=== PATIENT | female | born 1945 | race Caucasian/White ===

== ENCOUNTER 2018-06-25 05:10 | Inpatient (IN) ==
--- NOTE | 2018-06-25 05:59 | ED ---
HPI General Chief Complaint: Fall Stated Complaint: Fall Time Seen by Provider: 06/25/18 05:47 Source: patient Mode of arrival: EMS Limitations: no limitations History of Present Illness HPI Narrative: 72-year-old female came to the emergency room with history of fall from her water bed 1 week back and bumping her head. Patient says she has a bump on her head that still painful. She has also been experiencing generalized weakness, abdominal distention and some shortness of breath. Patient knows that she has multiple medical problems but does not know exactly what. She does not know the medications that she takes although there is a long list. She did not bring her list with her either. She was tachycardic upon arrival. She is answering questions appropriately but mostly not helpful in terms of past medical history. Related Data Home Medications Medication Instructions Recorded Confirmed Multi Vitamin PO DAILY 06/25/18 allopurinol PO DAILY 06/25/18 glipizide PO DAILY 06/25/18 levothyroxine 300 mcg PO DAILY 06/25/18 06/25/18 Allergies Allergy/AdvReac Type Severity Reaction Status Date / Time No Known Allergies Allergy Verified 06/25/18 05:25 Review of Systems ROS: all other systems reviewed are negative [facility] [place] Medical History Medical History Asthma (Acute) Diabetes (Acute) Gout (Acute) Hypertension (Acute) Leukemia (Acute) Surgical History Surgical History H/O foot surgery (Acute) H/O thyroidectomy (Acute) Family History Family History Mother Breast cancer Stroke Father Motor vehicle accident Sister Spina bifida Other No pertinent family history Social History Social History Substance History: No History of Abuse Second Hand Smoke Exposure: No Smoking Status: Never smoker How Often Do You Have a Drink Containing Alcohol: Monthly or less Recent Travel in [facility] within the Last 8 Weeks: No Recent Out of Country Travel within the Last 8 Weeks: No Immunization History Tetanus Immunization: Unsure Exam Narrative Exam Narrative: GENERAL: Awake, alert, moderate distress, obese SKIN: Focused skin assessment warm/dry. Pale HEAD: Atraumatic. Normocephalic. EYES: Pupils equal and round. No scleral icterus. No injection or drainage. ENT: No nasal bleeding or discharge. Mucous membranes pink and moist. NECK: Trachea midline. No JVD. CARDIOVASCULAR: Regular rate and rhythm. No murmur appreciated. RESPIRATORY: No accessory muscle use. Clear to auscultation. Breath sounds equal bilaterally. GASTROINTESTINAL: Abdomen soft, non-tender, distended. Hepatic and splenic margins not palpable. MUSCULOSKELETAL: No obvious deformities. No clubbing. No cyanosis. Bilateral pedal edema NEUROLOGICAL: Awake and alert. No obvious cranial nerve deficits. Motor grossly within normal limits. Normal speech. PSYCHIATRIC: Appropriate mood and affect; insight and judgment normal. Course Initial Documented Vital Signs Temperature 98.7 F 06/25/18 05:16 Pulse Rate 103 H 06/25/18 05:16 Respiratory Rate 20 06/25/18 05:16 Blood Pressure 133/82 06/25/18 05:16 Pulse Oximetry 96 06/25/18 05:16 Last Documented Vital Signs Temperature 97.3 F L 07/01/18 08:00 Pulse Rate 65 07/01/18 08:00 Respiratory Rate 18 07/01/18 08:00 Blood Pressure 150/69 H 07/01/18 08:00 Pulse Oximetry 94 L 07/01/18 08:00 Sign Out Sign Out Data: Patient Sign Out occurred on 06/25/18 at 07:28. Patient's care was discussed, and care was transferred from Joel Ramirez to [facility]. Sign Out Comment: Labs, CT head, admission Last updated by Joel Ramirez MD at 06/25/18 07:15 Post-Handoff Eval: CBC shows a 20,000 leukocytosis however with a shift on the lymphocytosis of 61 % no evidence of any anemia or any abnormal platelet count Coagulation profile is within normal limits ABG on room air shows hypoxemia with a PaO2 of 60 PCO2 37 pH 7.44 Electrolytes are within normal limits with the exception of hyperglycemia 184, also there is renal insufficiency with a GFR of 17 creatinine of 2.75 and a BUN of 43.... Please note that patient has had chronic renal insufficiency going back to 2011 when her average creatinine ranged between 1.75-1.89 First set of cardiac enzymes negative Chest x-ray read by radiologist as the right midlung density along with pleural effusion and underlying airspace disease my interpretation of these findings are most likely due to infectious disease such as pneumonia, the patient will be given Rocephin and azithromycin. Head CT read by radiologist as no evidence of acute infarct hemorrhage mass or edema Medical Decision Making MDM Narrative Medical decision making narrative: 7:10 AM awaiting for blood test results and CT scan of the brain. I have ordered 40 mg of Lasix. I have a very high clinical suspicion of congestive heart failure. Case has been signed over to the oncoming ER physician. In my opinion patient will need to be admitted. Medical Screen Exam Complete: Yes Emergency Medical Condition: Yes Lab Data Result diagrams: 07/01/18 04:43 07/01/18 04:43 Lab Results 06/25/18 06/25/18 06/25/18 Range/Units 07:15 07:15 07:15 WBC 20.7 H (4.0-11.0) th/mm3 RBC 3.81 L (4.00-5.30) mil/mm3 Hgb 11.6 (11.6-15.3) gm/dL Hct 35.1 (35.0-46.0) % MCV 92.3 (80.0-100.0) fL MCH 30.6 (27.0-34.0) pg MCHC 33.1 (32.0-36.0) % RDW 15.7 (11.6-17.2) % Plt Count 221 (150-450) th/mm3 MPV 9.1 (7.0-11.0) fL Prelim Diff (Auto) Slide review pending Neut % (Auto) 32.4 (16.0-70.0) % Lymph % (Auto) 60.8 H (9.0-44.0) % Bledsoe % (Auto) 4.4 (0.0-8.0) % Eos % (Auto) 1.8 (0.0-4.0) % Baso % (Auto) 0.6 (0.0-2.0) % Neut # (Auto) 6.7 (1.8-7.7) th/mm3 Lymph # (Auto) 12.6 H (1.0-4.8) th/mm3 [place] # (Auto) 0.9 (0.0-0.9) th/mm3 Eos # (Auto) 0.4 (0.0-0.4) th/mm3 Baso # (Auto) 0.1 (0.0-0.2) th/mm3 WBC Differential Manual diff final Seg Neuts % (Manual) 37 (16-70) % Band Neuts % (Manual) (0-6) % Lymphocytes % (Manual) 59 H (9-44) % Monocytes % (Manual) 3 (0-8) % Eosinophils % (Manual) 1 (0-4) % Basophils % (Manual) (0-2) % Abs Neuts (Manual) 7.7 (1.8-7.7) th/mm3 Differential Comment . Smudge Cells Present H (None) Platelet Estimate Normal (Normal) Platelet Morphology Normal (Normal) RBC Morphology (Normal) Ovalocytes (None) ESR (0-30) mm/hr PT (9.8-11.6) sec INR Ratio Puncture Site Patient Temperature O2 Saturation (90-100) % ABG pH (7.380-7.420) ABG pCO2 (38-42) mmHg ABG pO2 (61-120) mmHg ABG HCO3 (22-26) mmol/L ABG O2 Content (12.0-20.0) Vol % ABG Base Excess (-2-2) mmol/L ABG Methemoglobin (0-2) % Ulysses Test Hemoglobin (12.0-16.0) G/DL Carboxyhemoglobin (0-4) % Inspired O2 % Critical Value Sodium 141 (136-145) meq/L Potassium 4.0 (3.5-5.1) meq/L Chloride 106 (98-107) meq/L Carbon Dioxide 25.8 (21.0-32.0) meq/L Anion Gap 9 (5-15) meq/L BUN 43 H (7-18) mg/dL Creatinine 2.75 H (0.50-1.00) mg/dL Estimated GFR 17 L (>89) mL/min POC Glucose (68-110) mg/dl Random Glucose 184 H (74-106) mg/dL Calcium 8.0 L (8.5-10.1) mg/dL Iron (50-170) mcg/dL TIBC (250-450) mcg/dL % Saturation (20-50) % Ferritin (8-252) ng/mL Total Bilirubin 0.8 (0.2-1.0) mg/dL Direct Bilirubin (0.0-0.2) mg/dL Indirect Bilirubin (0.0-0.8) mg/dL AST 41 H (15-37) U/L ALT 21 (10-53) U/L Alkaline Phosphatase 211 H (45-117) U/L Ammonia (11-32) mcmol/L Troponin I Less than 0.02 L (0.02-0.05) ng/mL Total Protein 7.0 (6.4-8.2) g/dL Albumin 2.5 L (3.4-5.0) g/dL Ceruloplasmin (18-53) mg/dL Triglycerides (42-150) mg/dL Cholesterol (120-200) mg/dL LDL Cholesterol, Calc (0-99) mg/dL HDL Cholesterol (40.0-60.0) mg/dL Cholesterol/HDL Ratio Ratio Tumor Marker AFP (0.5-8.0) ng/mL CA 19-9 Antigen (0.0-35.0) U/mL Beta HCG, Qual Less than 1.0 (0-5) mIU/mL Urine Color (Yellw/Straw) Urine Clarity (Clear) Urine pH (5.0-8.5) Ur Specific [place] (1.002-1.035) Urine Protein (Neg-Trace) mg/dL Urine Glucose (UA) (Negative) mg/dL Urine Ketones (Negative) mg/dL Urine Occult Blood (Negative) Urine Nitrate (Negative) Urine Bilirubin (Negative) Urine Urobilinogen (Less than 2) mg/dL Ur Leukocyte Esterase (Negative) Urine RBC (0-3) /hpf Urine WBC (0-5) /hpf Ur Squamous Epith Cells (0-5) /hpf Hyaline Casts (0-3) /lpf Micro UA Comment Ur Microscopic Review Urine Culture Comments Ur Random Creatinine (27-300) mg/dL Ur Random Sodium meq/L Peritoneal RBC (0-0) /mm3 Periton Nuc Cells (0-10) /mm3 Periton Neutrophils % Periton Lymphocytes % Peritoneal Monocytes % Periton Mesothelial % Periton Histiocytes % Peritoneal Tot Protein gm/dL Peritoneal Albumin g/dL Peritoneal LDH U/L Peritoneal Glucose mg/dL Peritoneal Amylase U/L Pleural pH Pleural RBC (0-0) /mm3 Pleural Nuc Cells (0-10) /mm3 Pleural Neutrophils % Pleural Lymphocytes % Pleural Monocytes % Pleural Plasma Cells % Pleural Histocytes % Pleural Mesothelial % Pleural Other Cells % Pleural Total Protein gm/dL Pleural LDH U/L Pleural Glucose mg/dL Pleural Amylase U/L Stl C.difficile DNA Amp (Negative) St C. diff Tox Epid 027 (Negative) Rheumatoid Factor (<14) IU/mL LEIF Screen (NEGATIVE) LEIF Titer LEIF Pattern SS-A Antibody (<1.0 NEGATIVE) AI SS-B Antibody (<1.0 NEGATIVE) AI Sm (Woodward) Antibody (<1.0 NEGATIVE) AI SM/PAYROLL PROCESSOR Antibody (<1.0 NEGATIVE) AI Scl-70 Antibody (<1.0 NEGATIVE) AI Anti-ds DNA Titer (Crith) Anti-ds DNA (Crithidia) (NEGATIVE) Mitochondria M2 IgG Ab (0-20.0) U Anti-Smooth Muscle Ab (Negative) Hepatitis A IgM Ab (Nonreactive) Hep Bs Antigen (Nonreactive) Hep B Core IgM Ab (Nonreactive) Hep C IgG Ab (Nonreactive) Blood Type O Positive Blood Type Recheck Required Antibody Screen Negative 06/25/18 06/25/18 06/25/18 Range/Units 07:15 07:15 07:57 WBC (4.0-11.0) th/mm3 RBC (4.00-5.30) mil/mm3 Hgb (11.6-15.3) gm/dL Hct (35.0-46.0) % MCV (80.0-100.0) fL MCH (27.0-34.0) pg MCHC (32.0-36.0) % RDW (11.6-17.2) % Plt Count (150-450) th/mm3 MPV (7.0-11.0) fL Prelim Diff (Auto) Neut % (Auto) (16.0-70.0) % Lymph % (Auto) (9.0-44.0) % Bledsoe % (Auto) (0.0-8.0) % Eos % (Auto) (0.0-4.0) % Baso % (Auto) (0.0-2.0) % Neut # (Auto) (1.8-7.7) th/mm3 Lymph # (Auto) (1.0-4.8) th/mm3 [place] # (Auto) (0.0-0.9) th/mm3 Eos # (Auto) (0.0-0.4) th/mm3 Baso # (Auto) (0.0-0.2) th/mm3 WBC Differential Seg Neuts % (Manual) (16-70) % Band Neuts % (Manual) (0-6) % Lymphocytes % (Manual) (9-44) % Monocytes % (Manual) (0-8) % Eosinophils % (Manual) (0-4) % Basophils % (Manual) (0-2) % Abs Neuts (Manual) (1.8-7.7) th/mm3 Differential Comment Smudge Cells (None) Platelet Estimate (Normal) Platelet Morphology (Normal) RBC Morphology (Normal) Ovalocytes (None) ESR (0-30) mm/hr PT 11.4 (9.8-11.6) sec INR 1.1 Ratio Puncture Site Left radial Patient Temperature 98.6 O2 Saturation 90 (90-100) % ABG pH 7.44 H (7.380-7.420) ABG pCO2 37 L (38-42) mmHg ABG pO2 60 L (61-120) mmHg ABG HCO3 25 (22-26) mmol/L ABG O2 Content 13.5 (12.0-20.0) Vol % ABG Base Excess 1.1 (-2-2) mmol/L ABG Methemoglobin 0.4 (0-2) % Ulysses Test Present Hemoglobin 10.7 L (12.0-16.0) G/DL Carboxyhemoglobin 1.6 (0-4) % Inspired O2 21 % Critical Value No Sodium (136-145) meq/L Potassium (3.5-5.1) meq/L Chloride (98-107) meq/L Carbon Dioxide (21.0-32.0) meq/L Anion Gap (5-15) meq/L BUN (7-18) mg/dL Creatinine (0.50-1.00) mg/dL Estimated GFR (>89) mL/min POC Glucose (68-110) mg/dl Random Glucose (74-106) mg/dL Calcium (8.5-10.1) mg/dL Iron 41 L (50-170) mcg/dL TIBC 206 L (250-450) mcg/dL % Saturation 19.9 L (20-50) % Ferritin 307 H (8-252) ng/mL Total Bilirubin 0.8 (0.2-1.0) mg/dL Direct Bilirubin 0.3 H (0.0-0.2) mg/dL Indirect Bilirubin 0.5 (0.0-0.8) mg/dL AST 42 H (15-37) U/L ALT 21 (10-53) U/L Alkaline Phosphatase 208 H (45-117) U/L Ammonia (11-32) mcmol/L Troponin I (0.02-0.05) ng/mL Total Protein 7.0 (6.4-8.2) g/dL Albumin 2.6 L (3.4-5.0) g/dL Ceruloplasmin (18-53) mg/dL Triglycerides (42-150) mg/dL Cholesterol (120-200) mg/dL LDL Cholesterol, Calc (0-99) mg/dL HDL Cholesterol (40.0-60.0) mg/dL Cholesterol/HDL Ratio Ratio Tumor Marker AFP 1.8 (0.5-8.0) ng/mL CA 19-9 Antigen (0.0-35.0) U/mL Beta HCG, Qual (0-5) mIU/mL Urine Color (Yellw/Straw) Urine Clarity (Clear) Urine pH (5.0-8.5) Ur Specific [place] (1.002-1.035) Urine Protein (Neg-Trace) mg/dL Urine Glucose (UA) (Negative) mg/dL Urine Ketones (Negative) mg/dL Urine Occult Blood (Negative) Urine Nitrate (Negative) Urine Bilirubin (Negative) Urine Urobilinogen (Less than 2) mg/dL Ur Leukocyte Esterase (Negative) Urine RBC (0-3) /hpf Urine WBC (0-5) /hpf Ur Squamous Epith Cells (0-5) /hpf Hyaline Casts (0-3) /lpf Micro UA Comment Ur Microscopic Review Urine Culture Comments Ur Random Creatinine (27-300) mg/dL Ur Random Sodium meq/L Peritoneal RBC (0-0) /mm3 Periton Nuc Cells (0-10) /mm3 Periton Neutrophils % Periton Lymphocytes % Peritoneal Monocytes % Periton Mesothelial % Periton Histiocytes % Peritoneal Tot Protein gm/dL Peritoneal Albumin g/dL Peritoneal LDH U/L Peritoneal Glucose mg/dL Peritoneal Amylase U/L Pleural pH Pleural RBC (0-0) /mm3 Pleural Nuc Cells (0-10) /mm3 Pleural Neutrophils % Pleural Lymphocytes % Pleural Monocytes % Pleural Plasma Cells % Pleural Histocytes % Pleural Mesothelial % Pleural Other Cells % Pleural Total Protein gm/dL Pleural LDH U/L Pleural Glucose mg/dL Pleural Amylase U/L Stl C.difficile DNA Amp (Negative) St C. diff Tox Epid 027 (Negative) Rheumatoid Factor (<14) IU/mL LEIF Screen (NEGATIVE) LEIF Titer LEIF Pattern SS-A Antibody (<1.0 NEGATIVE) AI SS-B Antibody (<1.0 NEGATIVE) AI Sm ([place]ward) Antibody (<1.0 NEGATIVE) AI SM/PAYROLL PROCESSOR Antibody (<1.0 NEGATIVE) AI Scl-70 Antibody (<1.0 NEGATIVE) AI Anti-ds DNA Titer (Crith) Anti-ds DNA (Crithidia) (NEGATIVE) Mitochondria M2 IgG Ab (0-20.0) U Anti-Smooth Muscle Ab (Negative) Hepatitis A IgM Ab (Nonreactive) Hep Bs Antigen (Nonreactive) Hep B Core IgM Ab (Nonreactive) Hep C IgG Ab (Nonreactive) Blood Type Blood Type Recheck Antibody Screen 06/25/18 06/25/18 06/25/18 Range/Units 12:08 16:34 16:42 WBC (4.0-11.0) th/mm3 RBC (4.00-5.30) mil/mm3 Hgb (11.6-15.3) gm/dL Hct (35.0-46.0) % MCV (80.0-100.0) fL MCH (27.0-34.0) pg MCHC (32.0-36.0) % RDW (11.6-17.2) % Plt Count (150-450) th/mm3 MPV (7.0-11.0) fL Prelim Diff (Auto) Neut % (Auto) (16.0-70.0) % Lymph % (Auto) (9.0-44.0) % [place] % (Auto) (0.0-8.0) % Eos % (Auto) (0.0-4.0) % Baso % (Auto) (0.0-2.0) % Neut # (Auto) (1.8-7.7) th/mm3 Lymph # (Auto) (1.0-4.8) th/mm3 [place] # (Auto) (0.0-0.9) th/mm3 Eos # (Auto) (0.0-0.4) th/mm3 Baso # (Auto) (0.0-0.2) th/mm3 WBC Differential Seg Neuts % (Manual) (16-70) % Band Neuts % (Manual) (0-6) % Lymphocytes % (Manual) (9-44) % Monocytes % (Manual) (0-8) % Eosinophils % (Manual) (0-4) % Basophils % (Manual) (0-2) % Abs Neuts (Manual) (1.8-7.7) th/mm3 Differential Comment Smudge Cells (None) Platelet Estimate (Normal) Platelet Morphology (Normal) RBC Morphology (Normal) Ovalocytes (None) ESR (0-30) mm/hr PT (9.8-11.6) sec INR Ratio Puncture Site Patient Temperature O2 Saturation (90-100) % ABG pH (7.380-7.420) ABG pCO2 (38-42) mmHg ABG pO2 (61-120) mmHg ABG HCO3 (22-26) mmol/L ABG O2 Content (12.0-20.0) Vol % ABG Base Excess (-2-2) mmol/L ABG Methemoglobin (0-2) % [place]es Test Hemoglobin (12.0-16.0) G/DL Carboxyhemoglobin (0-4) % Inspired O2 % Critical Value Sodium (136-145) meq/L Potassium (3.5-5.1) meq/L Chloride (98-107) meq/L Carbon Dioxide (21.0-32.0) meq/L Anion Gap (5-15) meq/L BUN (7-18) mg/dL Creatinine (0.50-1.00) mg/dL Estimated GFR (>89) mL/min POC Glucose 147 H 155 H (68-110) mg/dl Random Glucose (74-106) mg/dL Calcium (8.5-10.1) mg/dL Iron (50-170) mcg/dL TIBC (250-450) mcg/dL % Saturation (20-50) % Ferritin (8-252) ng/mL Total Bilirubin (0.2-1.0) mg/dL Direct Bilirubin (0.0-0.2) mg/dL Indirect Bilirubin (0.0-0.8) mg/dL AST (15-37) U/L ALT (10-53) U/L Alkaline Phosphatase (45-117) U/L Ammonia (11-32) mcmol/L Troponin I (0.02-0.05) ng/mL Total Protein (6.4-8.2) g/dL Albumin (3.4-5.0) g/dL Ceruloplasmin (18-53) mg/dL Triglycerides (42-150) mg/dL Cholesterol (120-200) mg/dL LDL Cholesterol, Calc (0-99) mg/dL HDL Cholesterol (40.0-60.0) mg/dL Cholesterol/HDL Ratio Ratio Tumor Marker AFP (0.5-8.0) ng/mL CA 19-9 Antigen (0.0-35.0) U/mL Beta HCG, Qual (0-5) mIU/mL Urine Color (Yellw/Straw) Urine Clarity (Clear) Urine pH (5.0-8.5) Ur Specific [place] (1.002-1.035) Urine Protein (Neg-Trace) mg/dL Urine Glucose (UA) (Negative) mg/dL Urine Ketones (Negative) mg/dL Urine Occult Blood (Negative) Urine Nitrate (Negative) Urine Bilirubin (Negative) Urine Urobilinogen (Less than 2) mg/dL Ur Leukocyte Esterase (Negative) Urine RBC (0-3) /hpf Urine WBC (0-5) /hpf Ur Squamous Epith Cells (0-5) /hpf Hyaline Casts (0-3) /lpf Micro UA Comment Ur Microscopic Review Urine Culture Comments Ur Random Creatinine (27-300) mg/dL Ur Random Sodium meq/L Peritoneal RBC (0-0) /mm3 Periton Nuc Cells (0-10) /mm3 Periton Neutrophils % Periton Lymphocytes % Peritoneal Monocytes % Periton Mesothelial % Periton Histiocytes % Peritoneal Tot Protein gm/dL Peritoneal Albumin g/dL Peritoneal LDH U/L Peritoneal Glucose mg/dL Peritoneal Amylase U/L Pleural pH Pleural RBC (0-0) /mm3 Pleural Nuc Cells (0-10) /mm3 Pleural Neutrophils % Pleural Lymphocytes % Pleural Monocytes % Pleural Plasma Cells % Pleural Histocytes % Pleural Mesothelial % Pleural Other Cells % Pleural Total Protein gm/dL Pleural LDH U/L Pleural Glucose mg/dL Pleural Amylase U/L Stl C.difficile DNA Amp (Negative) St C. diff Tox Epid 027 (Negative) Rheumatoid Factor (<14) IU/mL LEIF Screen (NEGATIVE) LEIF Titer LEIF Pattern SS-A Antibody (<1.0 NEGATIVE) AI SS-B Antibody (<1.0 NEGATIVE) AI Sm (Woodward) Antibody (<1.0 NEGATIVE) AI SM/PAYROLL PROCESSOR Antibody (<1.0 NEGATIVE) AI Scl-70 Antibody (<1.0 NEGATIVE) AI Anti-ds DNA Titer (Crith) Anti-ds DNA (Crithidia) (NEGATIVE) Mitochondria M2 IgG Ab (0-20.0) U Anti-Smooth Muscle Ab (Negative) Hepatitis A IgM Ab Nonreactive (Nonreactive) Hep Bs Antigen Nonreactive (Nonreactive) Hep B Core IgM Ab Nonreactive (Nonreactive) Hep C IgG Ab Nonreactive (Nonreactive) Blood Type Blood Type Recheck Antibody Screen 06/25/18 06/25/18 06/25/18 Range/Units 16:42 16:42 16:42 WBC (4.0-11.0) th/mm3 RBC (4.00-5.30) mil/mm3 Hgb (11.6-15.3) gm/dL Hct (35.0-46.0) % MCV (80.0-100.0) fL MCH (27.0-34.0) pg MCHC (32.0-36.0) % RDW (11.6-17.2) % Plt Count (150-450) th/mm3 MPV (7.0-11.0) fL Prelim Diff (Auto) Neut % (Auto) (16.0-70.0) % Lymph % (Auto) (9.0-44.0) % [place] % (Auto) (0.0-8.0) % Eos % (Auto) (0.0-4.0) % Baso % (Auto) (0.0-2.0) % Neut # (Auto) (1.8-7.7) th/mm3 Lymph # (Auto) (1.0-4.8) th/mm3 [place] # (Auto) (0.0-0.9) th/mm3 Eos # (Auto) (0.0-0.4) th/mm3 Baso # (Auto) (0.0-0.2) th/mm3 WBC Differential Seg Neuts % (Manual) (16-70) % Band Neuts % (Manual) (0-6) % Lymphocytes % (Manual) (9-44) % Monocytes % (Manual) (0-8) % Eosinophils % (Manual) (0-4) % Basophils % (Manual) (0-2) % Abs Neuts (Manual) (1.8-7.7) th/mm3 Differential Comment Smudge Cells (None) Platelet Estimate (Normal) Platelet Morphology (Normal) RBC Morphology (Normal) Ovalocytes (None) ESR (0-30) mm/hr PT (9.8-11.6) sec INR Ratio Puncture Site Patient Temperature O2 Saturation (90-100) % ABG pH (7.380-7.420) ABG pCO2 (38-42) mmHg ABG pO2 (61-120) mmHg ABG HCO3 (22-26) mmol/L ABG O2 Content (12.0-20.0) Vol % ABG Base Excess (-2-2) mmol/L ABG Methemoglobin (0-2) % [place]es Test Hemoglobin (12.0-16.0) G/DL Carboxyhemoglobin (0-4) % Inspired O2 % Critical Value Sodium (136-145) meq/L Potassium (3.5-5.1) meq/L Chloride (98-107) meq/L Carbon Dioxide (21.0-32.0) meq/L Anion Gap (5-15) meq/L BUN (7-18) mg/dL Creatinine (0.50-1.00) mg/dL Estimated GFR (>89) mL/min POC Glucose (68-110) mg/dl Random Glucose (74-106) mg/dL Calcium (8.5-10.1) mg/dL Iron (50-170) mcg/dL TIBC (250-450) mcg/dL % Saturation (20-50) % Ferritin (8-252) ng/mL Total Bilirubin (0.2-1.0) mg/dL Direct Bilirubin (0.0-0.2) mg/dL Indirect Bilirubin (0.0-0.8) mg/dL AST (15-37) U/L ALT (10-53) U/L Alkaline Phosphatase (45-117) U/L Ammonia 17 (11-32) mcmol/L Troponin I (0.02-0.05) ng/mL Total Protein (6.4-8.2) g/dL Albumin (3.4-5.0) g/dL Ceruloplasmin 33 (18-53) mg/dL Triglycerides (42-150) mg/dL Cholesterol (120-200) mg/dL LDL Cholesterol, Calc (0-99) mg/dL HDL Cholesterol (40.0-60.0) mg/dL Cholesterol/HDL Ratio Ratio Tumor Marker AFP (0.5-8.0) ng/mL CA 19-9 Antigen 15.2 (0.0-35.0) U/mL Beta HCG, Qual (0-5) mIU/mL Urine Color (Yellw/Straw) Urine Clarity (Clear) Urine pH (5.0-8.5) Ur Specific [place] (1.002-1.035) Urine Protein (Neg-Trace) mg/dL Urine Glucose (UA) (Negative) mg/dL Urine Ketones (Negative) mg/dL Urine Occult Blood (Negative) Urine Nitrate (Negative) Urine Bilirubin (Negative) Urine Urobilinogen (Less than 2) mg/dL Ur Leukocyte Esterase (Negative) Urine RBC (0-3) /hpf Urine WBC (0-5) /hpf Ur Squamous Epith Cells (0-5) /hpf Hyaline Casts (0-3) /lpf Micro UA Comment Ur Microscopic Review Urine Culture Comments Ur Random Creatinine (27-300) mg/dL Ur Random Sodium meq/L Peritoneal RBC (0-0) /mm3 Periton Nuc Cells (0-10) /mm3 Periton Neutrophils % Periton Lymphocytes % Peritoneal Monocytes % Periton Mesothelial % Periton Histiocytes % Peritoneal Tot Protein gm/dL Peritoneal Albumin g/dL Peritoneal LDH U/L Peritoneal Glucose mg/dL Peritoneal Amylase U/L Pleural pH Pleural RBC (0-0) /mm3 Pleural Nuc Cells (0-10) /mm3 Pleural Neutrophils % Pleural Lymphocytes % Pleural Monocytes % Pleural Plasma Cells % Pleural Histocytes % Pleural Mesothelial % Pleural Other Cells % Pleural Total Protein gm/dL Pleural LDH U/L Pleural Glucose mg/dL Pleural Amylase U/L Stl C.difficile DNA Amp (Negative) St C. diff Tox Epid 027 (Negative) Rheumatoid Factor Less than 14 (<14) IU/mL LEIF Screen Negative (NEGATIVE) LEIF Titer ND LEIF Pattern ND SS-A Antibody <1.0 neg (<1.0 NEGATIVE) AI SS-B Antibody <1.0 neg (<1.0 NEGATIVE) AI Sm ([place]ward) Antibody <1.0 neg (<1.0 NEGATIVE) AI SM/[employer]OR Antibody <1.0 neg (<1.0 NEGATIVE) AI Scl-70 Antibody <1.0 neg (<1.0 NEGATIVE) AI Anti-ds DNA Titer (Crith) ND Anti-ds DNA (Crithidia) Negative (NEGATIVE) Mitochondria M2 IgG Ab Less than 20.0 (0-20.0) U Anti-Smooth Muscle Ab Negative (Negative) Hepatitis A IgM Ab (Nonreactive) Hep Bs Antigen (Nonreactive) Hep B Core IgM Ab (Nonreactive) Hep C IgG Ab (Nonreactive) Blood Type Blood Type Recheck Antibody Screen 06/25/18 06/25/18 06/25/18 Range/Units 16:42 17:15 17:15 WBC (4.0-11.0) th/mm3 RBC (4.00-5.30) mil/mm3 Hgb (11.6-15.3) gm/dL Hct (35.0-46.0) % MCV (80.0-100.0) fL MCH (27.0-34.0) pg MCHC (32.0-36.0) % RDW (11.6-17.2) % Plt Count (150-450) th/mm3 MPV (7.0-11.0) fL Prelim Diff (Auto) Neut % (Auto) (16.0-70.0) % Lymph % (Auto) (9.0-44.0) % Bledsoe % (Auto) (0.0-8.0) % Eos % (Auto) (0.0-4.0) % Baso % (Auto) (0.0-2.0) % Neut # (Auto) (1.8-7.7) th/mm3 Lymph # (Auto) (1.0-4.8) th/mm3 Bledsoe # (Auto) (0.0-0.9) th/mm3 Eos # (Auto) (0.0-0.4) th/mm3 Baso # (Auto) (0.0-0.2) th/mm3 WBC Differential Seg Neuts % (Manual) (16-70) % Band Neuts % (Manual) (0-6) % Lymphocytes % (Manual) (9-44) % Monocytes % (Manual) (0-8) % Eosinophils % (Manual) (0-4) % Basophils % (Manual) (0-2) % Abs Neuts (Manual) (1.8-7.7) th/mm3 Differential Comment Smudge Cells (None) Platelet Estimate (Normal) Platelet Morphology (Normal) RBC Morphology (Normal) Ovalocytes (None) ESR 58 H (0-30) mm/hr PT (9.8-11.6) sec INR Ratio Puncture Site Patient Temperature O2 Saturation (90-100) % ABG pH (7.380-7.420) ABG pCO2 (38-42) mmHg ABG pO2 (61-120) mmHg ABG HCO3 (22-26) mmol/L ABG O2 Content (12.0-20.0) Vol % ABG Base Excess (-2-2) mmol/L ABG Methemoglobin (0-2) % Ulysses Test Hemoglobin (12.0-16.0) G/DL Carboxyhemoglobin (0-4) % Inspired O2 % Critical Value Sodium (136-145) meq/L Potassium (3.5-5.1) meq/L Chloride (98-107) meq/L Carbon Dioxide (21.0-32.0) meq/L Anion Gap (5-15) meq/L BUN (7-18) mg/dL Creatinine (0.50-1.00) mg/dL Estimated GFR (>89) mL/min POC Glucose (68-110) mg/dl Random Glucose (74-106) mg/dL Calcium (8.5-10.1) mg/dL Iron (50-170) mcg/dL TIBC (250-450) mcg/dL % Saturation (20-50) % Ferritin (8-252) ng/mL Total Bilirubin (0.2-1.0) mg/dL Direct Bilirubin (0.0-0.2) mg/dL Indirect Bilirubin (0.0-0.8) mg/dL AST (15-37) U/L ALT (10-53) U/L Alkaline Phosphatase (45-117) U/L Ammonia (11-32) mcmol/L Troponin I (0.02-0.05) ng/mL Total Protein (6.4-8.2) g/dL Albumin (3.4-5.0) g/dL Ceruloplasmin (18-53) mg/dL Triglycerides (42-150) mg/dL Cholesterol (120-200) mg/dL LDL Cholesterol, Calc (0-99) mg/dL HDL Cholesterol (40.0-60.0) mg/dL Cholesterol/HDL Ratio Ratio Tumor Marker AFP (0.5-8.0) ng/mL CA 19-9 Antigen (0.0-35.0) U/mL Beta HCG, Qual (0-5) mIU/mL Urine Color (Yellw/Straw) Urine Clarity (Clear) Urine pH (5.0-8.5) Ur Specific [place] (1.002-1.035) Urine Protein (Neg-Trace) mg/dL Urine Glucose (UA) (Negative) mg/dL Urine Ketones (Negative) mg/dL Urine Occult Blood (Negative) Urine Nitrate (Negative) Urine Bilirubin (Negative) Urine Urobilinogen (Less than 2) mg/dL Ur Leukocyte Esterase (Negative) Urine RBC (0-3) /hpf Urine WBC (0-5) /hpf Ur Squamous Epith Cells (0-5) /hpf Hyaline Casts (0-3) /lpf Micro UA Comment Ur Microscopic Review Urine Culture Comments Ur Random Creatinine (27-300) mg/dL Ur Random Sodium meq/L Peritoneal RBC (0-0) /mm3 Periton Nuc Cells (0-10) /mm3 Periton Neutrophils % Periton Lymphocytes % Peritoneal Monocytes % Periton Mesothelial % Periton Histiocytes % Peritoneal Tot Protein gm/dL Peritoneal Albumin g/dL Peritoneal LDH U/L Peritoneal Glucose mg/dL Peritoneal Amylase U/L Pleural pH 7.5 Pleural RBC 120 H (0-0) /mm3 Pleural Nuc Cells 355 H (0-10) /mm3 Pleural Neutrophils 4 % Pleural Lymphocytes 37 % Pleural Monocytes 22 % Pleural Plasma Cells 1 % Pleural Histocytes 30 % Pleural Mesothelial 6 % Pleural Other Cells 2 % Pleural Total Protein 2.2 gm/dL Pleural LDH 116 U/L Pleural Glucose 167 mg/dL Pleural Amylase 60 U/L Stl C.difficile DNA Amp (Negative) St C. diff Tox Epid 027 (Negative) Rheumatoid Factor (<14) IU/mL LEIF Screen (NEGATIVE) LEIF Titer LEIF Pattern SS-A Antibody (<1.0 NEGATIVE) AI SS-B Antibody (<1.0 NEGATIVE) AI Sm (Woodward) Antibody (<1.0 NEGATIVE) AI SM/PA[employer]ROLL PROCESSOR Antibody (<1.0 NEGATIVE) AI Scl-70 Antibody (<1.0 NEGATIVE) AI Anti-ds DNA Titer (Crith) Anti-ds DNA (Crithidia) (NEGATIVE) Mitochondria M2 IgG Ab (0-20.0) U Anti-Smooth Muscle Ab (Negative) Hepatitis A IgM Ab (Nonreactive) Hep Bs Antigen (Nonreactive) Hep B Core IgM Ab (Nonreactive) Hep C IgG Ab (Nonreactive) Blood Type Blood Type Recheck Antibody Screen 06/25/18 06/25/18 06/25/18 Range/Units 17:45 17:45 20:24 WBC (4.0-11.0) th/mm3 RBC (4.00-5.30) mil/mm3 Hgb (11.6-15.3) gm/dL Hct (35.0-46.0) % MCV (80.0-100.0) fL MCH (27.0-34.0) pg MCHC (32.0-36.0) % RDW (11.6-17.2) % Plt Count (150-450) th/mm3 MPV (7.0-11.0) fL Prelim Diff (Auto) Neut % (Auto) (16.0-70.0) % Lymph % (Auto) (9.0-44.0) % [place] % (Auto) (0.0-8.0) % Eos % (Auto) (0.0-4.0) % Baso % (Auto) (0.0-2.0) % Neut # (Auto) (1.8-7.7) th/mm3 Lymph # (Auto) (1.0-4.8) th/mm3 [place] # (Auto) (0.0-0.9) th/mm3 Eos # (Auto) (0.0-0.4) th/mm3 Baso # (Auto) (0.0-0.2) th/mm3 WBC Differential Seg Neuts % (Manual) (16-70) % Band Neuts % (Manual) (0-6) % Lymphocytes % (Manual) (9-44) % Monocytes % (Manual) (0-8) % Eosinophils % (Manual) (0-4) % Basophils % (Manual) (0-2) % Abs Neuts (Manual) (1.8-7.7) th/mm3 Differential Comment Smudge Cells (None) Platelet Estimate (Normal) Platelet Morphology (Normal) RBC Morphology (Normal) Ovalocytes (None) ESR (0-30) mm/hr PT (9.8-11.6) sec INR Ratio Puncture Site Patient Temperature O2 Saturation (90-100) % ABG pH (7.380-7.420) ABG pCO2 (38-42) mmHg ABG pO2 (61-120) mmHg ABG HCO3 (22-26) mmol/L ABG O2 Content (12.0-20.0) Vol % ABG Base Excess (-2-2) mmol/L ABG Methemoglobin (0-2) % [place]es Test Hemoglobin (12.0-16.0) G/DL Carboxyhemoglobin (0-4) % Inspired O2 % Critical Value Sodium (136-145) meq/L Potassium (3.5-5.1) meq/L Chloride (98-107) meq/L Carbon Dioxide (21.0-32.0) meq/L Anion Gap (5-15) meq/L BUN (7-18) mg/dL Creatinine (0.50-1.00) mg/dL Estimated GFR (>89) mL/min POC Glucose 127 H (68-110) mg/dl Random Glucose (74-106) mg/dL Calcium (8.5-10.1) mg/dL Iron (50-170) mcg/dL TIBC (250-450) mcg/dL % Saturation (20-50) % Ferritin (8-252) ng/mL Total Bilirubin (0.2-1.0) mg/dL Direct Bilirubin (0.0-0.2) mg/dL Indirect Bilirubin (0.0-0.8) mg/dL AST (15-37) U/L ALT (10-53) U/L Alkaline Phosphatase (45-117) U/L Ammonia (11-32) mcmol/L Troponin I (0.02-0.05) ng/mL Total Protein (6.4-8.2) g/dL Albumin (3.4-5.0) g/dL Ceruloplasmin (18-53) mg/dL Triglycerides (42-150) mg/dL Cholesterol (120-200) mg/dL LDL Cholesterol, Calc (0-99) mg/dL HDL Cholesterol (40.0-60.0) mg/dL Cholesterol/HDL Ratio Ratio Tumor Marker AFP (0.5-8.0) ng/mL CA 19-9 Antigen (0.0-35.0) U/mL Beta HCG, Qual (0-5) mIU/mL Urine Color (Yellw/Straw) Urine Clarity (Clear) Urine pH (5.0-8.5) Ur Specific [place] (1.002-1.035) Urine Protein (Neg-Trace) mg/dL Urine Glucose (UA) (Negative) mg/dL Urine Ketones (Negative) mg/dL Urine Occult Blood (Negative) Urine Nitrate (Negative) Urine Bilirubin (Negative) Urine Urobilinogen (Less than 2) mg/dL Ur Leukocyte Esterase (Negative) Urine RBC (0-3) /hpf Urine WBC (0-5) /hpf Ur Squamous Epith Cells (0-5) /hpf Hyaline Casts (0-3) /lpf Micro UA Comment Ur Microscopic Review Urine Culture Comments Ur Random Creatinine (27-300) mg/dL Ur Random Sodium meq/L Peritoneal RBC 35 H (0-0) /mm3 Periton Nuc Cells 90 H (0-10) /mm3 Periton Neutrophils 15 % Periton Lymphocytes 31 % Peritoneal Monocytes 29 % Periton Mesothelial 3 % Periton Histiocytes 22 % Peritoneal Tot Protein 1.2 gm/dL Peritoneal Albumin 0.6 g/dL Peritoneal LDH 70 U/L Peritoneal Glucose 173 mg/dL Peritoneal Amylase 45 U/L Pleural pH Pleural RBC (0-0) /mm3 Pleural Nuc Cells (0-10) /mm3 Pleural Neutrophils % Pleural Lymphocytes % Pleural Monocytes % Pleural Plasma Cells % Pleural Histocytes % Pleural Mesothelial % Pleural Other Cells % Pleural Total Protein gm/dL Pleural LDH U/L Pleural Glucose mg/dL Pleural Amylase U/L Stl C.difficile DNA Amp (Negative) St C. diff Tox Epid 027 (Negative) Rheumatoid Factor (<14) IU/mL LEIF Screen (NEGATIVE) LEIF Titer LEIF Pattern SS-A Antibody (<1.0 NEGATIVE) AI SS-B Antibody (<1.0 NEGATIVE) AI Sm ([place]) Antibody (<1.0 NEGATIVE) AI SM/[employer]OR Antibody (<1.0 NEGATIVE) AI Scl-70 Antibody (<1.0 NEGATIVE) AI Anti-ds DNA Titer (Crith) Anti-ds DNA (Crithidia) (NEGATIVE) Mitochondria M2 IgG Ab (0-20.0) U Anti-Smooth Muscle Ab (Negative) Hepatitis A IgM Ab (Nonreactive) Hep Bs Antigen (Nonreactive) Hep B Core IgM Ab (Nonreactive) Hep C IgG Ab (Nonreactive) Blood Type Blood Type Recheck Antibody Screen 06/26/18 06/26/18 06/26/18 Range/Units 06:57 06:57 11:54 WBC 13.5 H (4.0-11.0) th/mm3 RBC 3.65 L (4.00-5.30) mil/mm3 Hgb 10.9 L (11.6-15.3) gm/dL Hct 33.5 L (35.0-46.0) % MCV 91.7 (80.0-100.0) fL MCH 29.9 (27.0-34.0) pg MCHC 32.6 (32.0-36.0) % RDW 14.9 (11.6-17.2) % Plt Count 165 (150-450) th/mm3 MPV 9.1 (7.0-11.0) fL Prelim Diff (Auto) Slide review pending Neut % (Auto) 38.3 (16.0-70.0) % Lymph % (Auto) 53.0 H (9.0-44.0) % [place] % (Auto) 4.5 (0.0-8.0) % Eos % (Auto) 3.4 (0.0-4.0) % Baso % (Auto) 0.8 (0.0-2.0) % Neut # (Auto) 5.2 (1.8-7.7) th/mm3 Lymph # (Auto) 7.2 H (1.0-4.8) th/mm3 [place] # (Auto) 0.6 (0.0-0.9) th/mm3 Eos # (Auto) 0.5 H (0.0-0.4) th/mm3 Baso # (Auto) 0.1 (0.0-0.2) th/mm3 WBC Differential Manual diff final Seg Neuts % (Manual) 36 (16-70) % Band Neuts % (Manual) 1 (0-6) % Lymphocytes % (Manual) 53 H (9-44) % Monocytes % (Manual) 4 (0-8) % Eosinophils % (Manual) 6 H (0-4) % Basophils % (Manual) (0-2) % Abs Neuts (Manual) 5.0 (1.8-7.7) th/mm3 Differential Comment . Smudge Cells Present H (None) Platelet Estimate Normal (Normal) Platelet Morphology Normal (Normal) RBC Morphology (Normal) Ovalocytes 1+ H (None) ESR (0-30) mm/hr PT (9.8-11.6) sec INR Ratio Puncture Site Patient Temperature O2 Saturation (90-100) % ABG pH (7.380-7.420) ABG pCO2 (38-42) mmHg ABG pO2 (61-120) mmHg ABG HCO3 (22-26) mmol/L ABG O2 Content (12.0-20.0) Vol % ABG Base Excess (-2-2) mmol/L ABG Methemoglobin (0-2) % [place] Test Hemoglobin (12.0-16.0) G/DL Carboxyhemoglobin (0-4) % Inspired O2 % Critical Value Sodium 142 (136-145) meq/L Potassium 4.6 (3.5-5.1) meq/L Chloride 107 (98-107) meq/L Carbon Dioxide 26.7 (21.0-32.0) meq/L Anion Gap 8 (5-15) meq/L BUN 41 H (7-18) mg/dL Creatinine 2.63 H (0.50-1.00) mg/dL Estimated GFR 18 L (>89) mL/min POC Glucose 162 H (68-110) mg/dl Random Glucose 141 H (74-106) mg/dL Calcium 7.7 L (8.5-10.1) mg/dL Iron (50-170) mcg/dL TIBC (250-450) mcg/dL % Saturation (20-50) % Ferritin (8-252) ng/mL Total Bilirubin (0.2-1.0) mg/dL Direct Bilirubin (0.0-0.2) mg/dL Indirect Bilirubin (0.0-0.8) mg/dL AST (15-37) U/L ALT (10-53) U/L Alkaline Phosphatase (45-117) U/L Ammonia (11-32) mcmol/L Troponin I (0.02-0.05) ng/mL Total Protein (6.4-8.2) g/dL Albumin (3.4-5.0) g/dL Ceruloplasmin (18-53) mg/dL Triglycerides (42-150) mg/dL Cholesterol (120-200) mg/dL LDL Cholesterol, Calc (0-99) mg/dL HDL Cholesterol (40.0-60.0) mg/dL Cholesterol/HDL Ratio Ratio Tumor Marker AFP (0.5-8.0) ng/mL CA 19-9 Antigen (0.0-35.0) U/mL Beta HCG, Qual (0-5) mIU/mL Urine Color (Yellw/Straw) Urine Clarity (Clear) Urine pH (5.0-8.5) Ur Specific [place] (1.002-1.035) Urine Protein (Neg-Trace) mg/dL Urine Glucose (UA) (Negative) mg/dL Urine Ketones (Negative) mg/dL Urine Occult Blood (Negative) Urine Nitrate (Negative) Urine Bilirubin (Negative) Urine Urobilinogen (Less than 2) mg/dL Ur Leukocyte Esterase (Negative) Urine RBC (0-3) /hpf Urine WBC (0-5) /hpf Ur Squamous Epith Cells (0-5) /hpf Hyaline Casts (0-3) /lpf Micro UA Comment Ur Microscopic Review Urine Culture Comments Ur Random Creatinine (27-300) mg/dL Ur Random Sodium meq/L Peritoneal RBC (0-0) /mm3 Periton Nuc Cells (0-10) /mm3 Periton Neutrophils % Periton Lymphocytes % Peritoneal Monocytes % Periton Mesothelial % Periton Histiocytes % Peritoneal Tot Protein gm/dL Peritoneal Albumin g/dL Peritoneal LDH U/L Peritoneal Glucose mg/dL Peritoneal Amylase U/L Pleural pH Pleural RBC (0-0) /mm3 Pleural Nuc Cells (0-10) /mm3 Pleural Neutrophils % Pleural Lymphocytes % Pleural Monocytes % Pleural Plasma Cells % Pleural Histocytes % Pleural Mesothelial % Pleural Other Cells % Pleural Total Protein gm/dL Pleural LDH U/L Pleural Glucose mg/dL Pleural Amylase U/L Stl C.difficile DNA Amp (Negative) St C. diff Tox Epid 027 (Negative) Rheumatoid Factor (<14) IU/mL LEIF Screen (NEGATIVE) LEIF Titer LEIF Pattern SS-A Antibody (<1.0 NEGATIVE) AI SS-B Antibody (<1.0 NEGATIVE) AI Sm ([place]) Antibody (<1.0 NEGATIVE) AI SM/[employer]LL PROC[employer]OR Antibody (<1.0 NEGATIVE) AI Scl-70 Antibody (<1.0 NEGATIVE) AI Anti-ds DNA Titer (Crith) Anti-ds DNA (Crithidia) (NEGATIVE) Mitochondria M2 IgG Ab (0-20.0) U Anti-Smooth Muscle Ab (Negative) Hepatitis A IgM Ab (Nonreactive) Hep Bs Antigen (Nonreactive) Hep B Core IgM Ab (Nonreactive) Hep C IgG Ab (Nonreactive) Blood Type Blood Type Recheck Antibody Screen 06/26/18 06/26/18 06/27/18 Range/Units 16:55 21:32 06:51 WBC (4.0-11.0) th/mm3 RBC (4.00-5.30) mil/mm3 Hgb (11.6-15.3) gm/dL Hct (35.0-46.0) % MCV (80.0-100.0) fL MCH (27.0-34.0) pg MCHC (32.0-36.0) % RDW (11.6-17.2) % Plt Count (150-450) th/mm3 MPV (7.0-11.0) fL Prelim Diff (Auto) Neut % (Auto) (16.0-70.0) % Lymph % (Auto) (9.0-44.0) % [place] % (Auto) (0.0-8.0) % Eos % (Auto) (0.0-4.0) % Baso % (Auto) (0.0-2.0) % Neut # (Auto) (1.8-7.7) th/mm3 Lymph # (Auto) (1.0-4.8) th/mm3 [place] # (Auto) (0.0-0.9) th/mm3 Eos # (Auto) (0.0-0.4) th/mm3 Baso # (Auto) (0.0-0.2) th/mm3 WBC Differential Seg Neuts % (Manual) (16-70) % Band Neuts % (Manual) (0-6) % Lymphocytes % (Manual) (9-44) % Monocytes % (Manual) (0-8) % Eosinophils % (Manual) (0-4) % Basophils % (Manual) (0-2) % Abs Neuts (Manual) (1.8-7.7) th/mm3 Differential Comment Smudge Cells (None) Platelet Estimate (Normal) Platelet Morphology (Normal) RBC Morphology (Normal) Ovalocytes (None) ESR (0-30) mm/hr PT (9.8-11.6) sec INR Ratio Puncture Site Patient Temperature O2 Saturation (90-100) % ABG pH (7.380-7.420) ABG pCO2 (38-42) mmHg ABG pO2 (61-120) mmHg ABG HCO3 (22-26) mmol/L ABG O2 Content (12.0-20.0) Vol % ABG Base Excess (-2-2) mmol/L ABG Methemoglobin (0-2) % [place] Test Hemoglobin (12.0-16.0) G/DL Carboxyhemoglobin (0-4) % Inspired O2 % Critical Value Sodium 142 (136-145) meq/L Potassium 4.4 (3.5-5.1) meq/L Chloride 107 (98-107) meq/L Carbon Dioxide 26.4 (21.0-32.0) meq/L Anion Gap 9 (5-15) meq/L BUN 48 H (7-18) mg/dL Creatinine 3.12 H (0.50-1.00) mg/dL Estimated GFR 15 L (>89) mL/min POC Glucose 153 H 128 H (68-110) mg/dl Random Glucose 188 H (74-106) mg/dL Calcium 7.5 L (8.5-10.1) mg/dL Iron (50-170) mcg/dL TIBC (250-450) mcg/dL % Saturation (20-50) % Ferritin (8-252) ng/mL Total Bilirubin (0.2-1.0) mg/dL Direct Bilirubin (0.0-0.2) mg/dL Indirect Bilirubin (0.0-0.8) mg/dL AST (15-37) U/L ALT (10-53) U/L Alkaline Phosphatase (45-117) U/L Ammonia (11-32) mcmol/L Troponin I (0.02-0.05) ng/mL Total Protein (6.4-8.2) g/dL Albumin (3.4-5.0) g/dL Ceruloplasmin (18-53) mg/dL Triglycerides (42-150) mg/dL Cholesterol (120-200) mg/dL LDL Cholesterol, Calc (0-99) mg/dL HDL Cholesterol (40.0-60.0) mg/dL Cholesterol/HDL Ratio Ratio Tumor Marker AFP (0.5-8.0) ng/mL CA 19-9 Antigen (0.0-35.0) U/mL Beta HCG, Qual (0-5) mIU/mL Urine Color (Yellw/Straw) Urine Clarity (Clear) Urine pH (5.0-8.5) Ur Specific [place] (1.002-1.035) Urine Protein (Neg-Trace) mg/dL Urine Glucose (UA) (Negative) mg/dL Urine Ketones (Negative) mg/dL Urine Occult Blood (Negative) Urine Nitrate (Negative) Urine Bilirubin (Negative) Urine Urobilinogen (Less than 2) mg/dL Ur Leukocyte Esterase (Negative) Urine RBC (0-3) /hpf Urine WBC (0-5) /hpf Ur Squamous Epith Cells (0-5) /hpf Hyaline Casts (0-3) /lpf Micro UA Comment Ur Microscopic Review Urine Culture Comments Ur Random Creatinine (27-300) mg/dL Ur Random Sodium meq/L Peritoneal RBC (0-0) /mm3 Periton Nuc Cells (0-10) /mm3 Periton Neutrophils % Periton Lymphocytes % Peritoneal Monocytes % Periton Mesothelial % Periton Histiocytes % Peritoneal Tot Protein gm/dL Peritoneal Albumin g/dL Peritoneal LDH U/L Peritoneal Glucose mg/dL Peritoneal Amylase U/L Pleural pH Pleural RBC (0-0) /mm3 Pleural Nuc Cells (0-10) /mm3 Pleural Neutrophils % Pleural Lymphocytes % Pleural Monocytes % Pleural Plasma Cells % Pleural Histocytes % Pleural Mesothelial % Pleural Other Cells % Pleural Total Protein gm/dL Pleural LDH U/L Pleural Glucose mg/dL Pleural Amylase U/L Stl C.difficile DNA Amp (Negative) St C. diff Tox Epid 027 (Negative) Rheumatoid Factor (<14) IU/mL LEIF Screen (NEGATIVE) LEIF Titer LEIF Pattern SS-A Antibody (<1.0 NEGATIVE) AI SS-B Antibody (<1.0 NEGATIVE) AI Sm ([place]) Antibody (<1.0 NEGATIVE) AI SM/[employer]OR Antibody (<1.0 NEGATIVE) AI Scl-70 Antibody (<1.0 NEGATIVE) AI Anti-ds DNA Titer (Crith) Anti-ds DNA (Crithidia) (NEGATIVE) Mitochondria M2 IgG Ab (0-20.0) U Anti-Smooth Muscle Ab (Negative) Hepatitis A IgM Ab (Nonreactive) Hep Bs Antigen (Nonreactive) Hep B Core IgM Ab (Nonreactive) Hep C IgG Ab (Nonreactive) Blood Type Blood Type Recheck Antibody Screen 06/27/18 06/27/18 06/27/18 Range/Units 06:51 06:51 07:12 WBC 22.1 H D (4.0-11.0) th/mm3 RBC 3.74 L (4.00-5.30) mil/mm3 Hgb 11.2 L (11.6-15.3) gm/dL Hct 33.8 L (35.0-46.0) % MCV 90.4 (80.0-100.0) fL MCH 29.9 (27.0-34.0) pg MCHC 33.0 (32.0-36.0) % RDW 14.9 (11.6-17.2) % Plt Count 210 (150-450) th/mm3 MPV 8.9 (7.0-11.0) fL Prelim Diff (Auto) Slide review pending Neut % (Auto) 28.5 (16.0-70.0) % Lymph % (Auto) 64.1 H (9.0-44.0) % [place] % (Auto) 4.3 (0.0-8.0) % Eos % (Auto) 2.7 (0.0-4.0) % Baso % (Auto) 0.4 (0.0-2.0) % Neut # (Auto) 6.3 (1.8-7.7) th/mm3 Lymph # (Auto) 14.1 H (1.0-4.8) th/mm3 [place] # (Auto) 0.9 (0.0-0.9) th/mm3 Eos # (Auto) 0.6 H (0.0-0.4) th/mm3 Baso # (Auto) 0.1 (0.0-0.2) th/mm3 WBC Differential Manual diff final Seg Neuts % (Manual) 20 (16-70) % Band Neuts % (Manual) 1 (0-6) % Lymphocytes % (Manual) 74 H (9-44) % Monocytes % (Manual) 4 (0-8) % Eosinophils % (Manual) 1 (0-4) % Basophils % (Manual) (0-2) % Abs Neuts (Manual) 4.6 (1.8-7.7) th/mm3 Differential Comment . Smudge Cells Present H (None) Platelet Estimate Normal (Normal) Platelet Morphology Normal (Normal) RBC Morphology (Normal) Ovalocytes (None) ESR (0-30) mm/hr PT (9.8-11.6) sec INR Ratio Puncture Site Patient Temperature O2 Saturation (90-100) % ABG pH (7.380-7.420) ABG pCO2 (38-42) mmHg ABG pO2 (61-120) mmHg ABG HCO3 (22-26) mmol/L ABG O2 Content (12.0-20.0) Vol % ABG Base Excess (-2-2) mmol/L ABG Methemoglobin (0-2) % [place] Test Hemoglobin (12.0-16.0) G/DL Carboxyhemoglobin (0-4) % Inspired O2 % Critical Value Sodium (136-145) meq/L Potassium (3.5-5.1) meq/L Chloride (98-107) meq/L Carbon Dioxide (21.0-32.0) meq/L Anion Gap (5-15) meq/L BUN (7-18) mg/dL Creatinine (0.50-1.00) mg/dL Estimated GFR (>89) mL/min POC Glucose 164 H (68-110) mg/dl Random Glucose (74-106) mg/dL Calcium (8.5-10.1) mg/dL Iron (50-170) mcg/dL TIBC (250-450) mcg/dL % Saturation (20-50) % Ferritin (8-252) ng/mL Total Bilirubin (0.2-1.0) mg/dL Direct Bilirubin (0.0-0.2) mg/dL Indirect Bilirubin (0.0-0.8) mg/dL AST (15-37) U/L ALT (10-53) U/L Alkaline Phosphatase (45-117) U/L Ammonia (11-32) mcmol/L Troponin I (0.02-0.05) ng/mL Total Protein (6.4-8.2) g/dL Albumin (3.4-5.0) g/dL Ceruloplasmin (18-53) mg/dL Triglycerides 118 (42-150) mg/dL Cholesterol 134 (120-200) mg/dL LDL Cholesterol, Calc 82 (0-99) mg/dL HDL Cholesterol 28.2 L (40.0-60.0) mg/dL Cholesterol/HDL Ratio 4.75 Ratio Tumor Marker AFP (0.5-8.0) ng/mL CA 19-9 Antigen (0.0-35.0) U/mL Beta HCG, Qual (0-5) mIU/mL Urine Color (Yellw/Straw) Urine Clarity (Clear) Urine pH (5.0-8.5) Ur Specific [place] (1.002-1.035) Urine Protein (Neg-Trace) mg/dL Urine Glucose (UA) (Negative) mg/dL Urine Ketones (Negative) mg/dL Urine Occult Blood (Negative) Urine Nitrate (Negative) Urine Bilirubin (Negative) Urine Urobilinogen (Less than 2) mg/dL Ur Leukocyte Esterase (Negative) Urine RBC (0-3) /hpf Urine WBC (0-5) /hpf Ur Squamous Epith Cells (0-5) /hpf Hyaline Casts (0-3) /lpf Micro UA Comment Ur Microscopic Review Urine Culture Comments Ur Random Creatinine (27-300) mg/dL Ur Random Sodium meq/L Peritoneal RBC (0-0) /mm3 Periton Nuc Cells (0-10) /mm3 Periton Neutrophils % Periton Lymphocytes % Peritoneal Monocytes % Periton Mesothelial % Periton Histiocytes % Peritoneal Tot Protein gm/dL Peritoneal Albumin g/dL Peritoneal LDH U/L Peritoneal Glucose mg/dL Peritoneal Amylase U/L Pleural pH Pleural RBC (0-0) /mm3 Pleural Nuc Cells (0-10) /mm3 Pleural Neutrophils % Pleural Lymphocytes % Pleural Monocytes % Pleural Plasma Cells % Pleural Histocytes % Pleural Mesothelial % Pleural Other Cells % Pleural Total Protein gm/dL Pleural LDH U/L Pleural Glucose mg/dL Pleural Amylase U/L Stl C.difficile DNA Amp (Negative) St C. diff Tox Epid 027 (Negative) Rheumatoid Factor (<14) IU/mL LEIF Screen (NEGATIVE) LEIF Titer LEIF Pattern SS-A Antibody (<1.0 NEGATIVE) AI SS-B Antibody (<1.0 NEGATIVE) AI Sm ([place]ward) Antibody (<1.0 NEGATIVE) AI SM/[employer]OR Antibody (<1.0 NEGATIVE) AI Scl-70 Antibody (<1.0 NEGATIVE) AI Anti-ds DNA Titer (Crith) Anti-ds DNA (Crithidia) (NEGATIVE) Mitochondria M2 IgG Ab (0-20.0) U Anti-Smooth Muscle Ab (Negative) Hepatitis A IgM Ab (Nonreactive) Hep Bs Antigen (Nonreactive) Hep B Core IgM Ab (Nonreactive) Hep C IgG Ab (Nonreactive) Blood Type Blood Type Recheck Antibody Screen 06/27/18 06/27/18 06/27/18 Range/Units 11:03 13:20 16:06 WBC (4.0-11.0) th/mm3 RBC (4.00-5.30) mil/mm3 Hgb (11.6-15.3) gm/dL Hct (35.0-46.0) % MCV (80.0-100.0) fL MCH (27.0-34.0) pg MCHC (32.0-36.0) % RDW (11.6-17.2) % Plt Count (150-450) th/mm3 MPV (7.0-11.0) fL Prelim Diff (Auto) Neut % (Auto) (16.0-70.0) % Lymph % (Auto) (9.0-44.0) % [place] % (Auto) (0.0-8.0) % Eos % (Auto) (0.0-4.0) % Baso % (Auto) (0.0-2.0) % Neut # (Auto) (1.8-7.7) th/mm3 Lymph # (Auto) (1.0-4.8) th/mm3 [place] # (Auto) (0.0-0.9) th/mm3 Eos # (Auto) (0.0-0.4) th/mm3 Baso # (Auto) (0.0-0.2) th/mm3 WBC Differential Seg Neuts % (Manual) (16-70) % Band Neuts % (Manual) (0-6) % Lymphocytes % (Manual) (9-44) % Monocytes % (Manual) (0-8) % Eosinophils % (Manual) (0-4) % Basophils % (Manual) (0-2) % Abs Neuts (Manual) (1.8-7.7) th/mm3 Differential Comment Smudge Cells (None) Platelet Estimate (Normal) Platelet Morphology (Normal) RBC Morphology (Normal) Ovalocytes (None) ESR (0-30) mm/hr PT (9.8-11.6) sec INR Ratio Puncture Site Patient Temperature O2 Saturation (90-100) % ABG pH (7.380-7.420) ABG pCO2 (38-42) mmHg ABG pO2 (61-120) mmHg ABG HCO3 (22-26) mmol/L ABG O2 Content (12.0-20.0) Vol % ABG Base Excess (-2-2) mmol/L ABG Methemoglobin (0-2) % [place] Test Hemoglobin (12.0-16.0) G/DL Carboxyhemoglobin (0-4) % Inspired O2 % Critical Value Sodium (136-145) meq/L Potassium (3.5-5.1) meq/L Chloride (98-107) meq/L Carbon Dioxide (21.0-32.0) meq/L Anion Gap (5-15) meq/L BUN (7-18) mg/dL Creatinine (0.50-1.00) mg/dL Estimated GFR (>89) mL/min POC Glucose 134 H 159 H (68-110) mg/dl Random Glucose (74-106) mg/dL Calcium (8.5-10.1) mg/dL Iron (50-170) mcg/dL TIBC (250-450) mcg/dL % Saturation (20-50) % Ferritin (8-252) ng/mL Total Bilirubin (0.2-1.0) mg/dL Direct Bilirubin (0.0-0.2) mg/dL Indirect Bilirubin (0.0-0.8) mg/dL AST (15-37) U/L ALT (10-53) U/L Alkaline Phosphatase (45-117) U/L Ammonia (11-32) mcmol/L Troponin I (0.02-0.05) ng/mL Total Protein (6.4-8.2) g/dL Albumin (3.4-5.0) g/dL Ceruloplasmin (18-53) mg/dL Triglycerides (42-150) mg/dL Cholesterol (120-200) mg/dL LDL Cholesterol, Calc (0-99) mg/dL HDL Cholesterol (40.0-60.0) mg/dL Cholesterol/HDL Ratio Ratio Tumor Marker AFP (0.5-8.0) ng/mL CA 19-9 Antigen (0.0-35.0) U/mL Beta HCG, Qual (0-5) mIU/mL Urine Color (Yellw/Straw) Urine Clarity (Clear) Urine pH (5.0-8.5) Ur Specific [place] (1.002-1.035) Urine Protein (Neg-Trace) mg/dL Urine Glucose (UA) (Negative) mg/dL Urine Ketones (Negative) mg/dL Urine Occult Blood (Negative) Urine Nitrate (Negative) Urine Bilirubin (Negative) Urine Urobilinogen (Less than 2) mg/dL Ur Leukocyte Esterase (Negative) Urine RBC (0-3) /hpf Urine WBC (0-5) /hpf Ur Squamous Epith Cells (0-5) /hpf Hyaline Casts (0-3) /lpf Micro UA Comment Ur Microscopic Review Urine Culture Comments Ur Random Creatinine (27-300) mg/dL Ur Random Sodium meq/L Peritoneal RBC (0-0) /mm3 Periton Nuc Cells (0-10) /mm3 Periton Neutrophils % Periton Lymphocytes % Peritoneal Monocytes % Periton Mesothelial % Periton Histiocytes % Peritoneal Tot Protein gm/dL Peritoneal Albumin g/dL Peritoneal LDH U/L Peritoneal Glucose mg/dL Peritoneal Amylase U/L Pleural pH Pleural RBC (0-0) /mm3 Pleural Nuc Cells (0-10) /mm3 Pleural Neutrophils % Pleural Lymphocytes % Pleural Monocytes % Pleural Plasma Cells % Pleural Histocytes % Pleural Mesothelial % Pleural Other Cells % Pleural Total Protein gm/dL Pleural LDH U/L Pleural Glucose mg/dL Pleural Amylase U/L Stl C.difficile DNA Amp Negative (Negative) St C. diff Tox Epid 027 Negative (Negative) Rheumatoid Factor (<14) IU/mL LEIF Screen (NEGATIVE) LEIF Titer LEIF Pattern SS-A Antibody (<1.0 NEGATIVE) AI SS-B Antibody (<1.0 NEGATIVE) AI Sm ([place]) Antibody (<1.0 NEGATIVE) AI SM/[employer] Antibody (<1.0 NEGATIVE) AI Scl-70 Antibody (<1.0 NEGATIVE) AI Anti-ds DNA Titer ([place]) Anti-ds DNA (Crithidia) (NEGATIVE) Mitochondria M2 IgG Ab (0-20.0) U Anti-Smooth Muscle Ab (Negative) Hepatitis A IgM Ab (Nonreactive) Hep Bs Antigen (Nonreactive) Hep B Core IgM Ab (Nonreactive) Hep C IgG Ab (Nonreactive) Blood Type Blood Type Recheck Antibody Screen 06/27/18 06/28/18 06/28/18 Range/Units 21:13 05:38 05:38 WBC 26.1 H (4.0-11.0) th/mm3 RBC 3.62 L (4.00-5.30) mil/mm3 Hgb 10.9 L (11.6-15.3) gm/dL Hct 32.8 L (35.0-46.0) % MCV 90.7 (80.0-100.0) fL MCH 30.0 (27.0-34.0) pg MCHC 33.1 (32.0-36.0) % RDW 15.1 (11.6-17.2) % Plt Count 201 (150-450) th/mm3 MPV 8.9 (7.0-11.0) fL Prelim Diff (Auto) Slide review pending Neut % (Auto) 27.4 (16.0-70.0) % Lymph % (Auto) 65.4 H (9.0-44.0) % [place] % (Auto) 4.2 (0.0-8.0) % Eos % (Auto) 2.4 (0.0-4.0) % Baso % (Auto) 0.6 (0.0-2.0) % Neut # (Auto) 7.1 (1.8-7.7) th/mm3 Lymph # (Auto) 17.1 H (1.0-4.8) th/mm3 [place] # (Auto) 1.1 H (0.0-0.9) th/mm3 Eos # (Auto) 0.6 H (0.0-0.4) th/mm3 Baso # (Auto) 0.1 (0.0-0.2) th/mm3 WBC Differential Manual diff final Seg Neuts % (Manual) 30 (16-70) % Band Neuts % (Manual) (0-6) % Lymphocytes % (Manual) 64 H (9-44) % Monocytes % (Manual) 2 (0-8) % Eosinophils % (Manual) 4 (0-4) % Basophils % (Manual) (0-2) % Abs Neuts (Manual) 7.8 H (1.8-7.7) th/mm3 Differential Comment . Smudge Cells Present H (None) Platelet Estimate Normal (Normal) Platelet Morphology Normal (Normal) RBC Morphology (Normal) Ovalocytes (None) ESR (0-30) mm/hr PT (9.8-11.6) sec INR Ratio Puncture Site Patient Temperature O2 Saturation (90-100) % ABG pH (7.380-7.420) ABG pCO2 (38-42) mmHg ABG pO2 (61-120) mmHg ABG HCO3 (22-26) mmol/L ABG O2 Content (12.0-20.0) Vol % ABG Base Excess (-2-2) mmol/L ABG Methemoglobin (0-2) % [place] Test Hemoglobin (12.0-16.0) G/DL Carboxyhemoglobin (0-4) % Inspired O2 % Critical Value Sodium 140 (136-145) meq/L Potassium 4.6 (3.5-5.1) meq/L Chloride 107 (98-107) meq/L Carbon Dioxide 23.7 (21.0-32.0) meq/L Anion Gap 9 (5-15) meq/L BUN 53 H (7-18) mg/dL Creatinine 3.61 H (0.50-1.00) mg/dL Estimated GFR 12 L (>89) mL/min POC Glucose 142 H (68-110) mg/dl Random Glucose 137 H (74-106) mg/dL Calcium 7.5 L (8.5-10.1) mg/dL Iron (50-170) mcg/dL TIBC (250-450) mcg/dL % Saturation (20-50) % Ferritin (8-252) ng/mL Total Bilirubin (0.2-1.0) mg/dL Direct Bilirubin (0.0-0.2) mg/dL Indirect Bilirubin (0.0-0.8) mg/dL AST (15-37) U/L ALT (10-53) U/L Alkaline Phosphatase (45-117) U/L Ammonia (11-32) mcmol/L Troponin I (0.02-0.05) ng/mL Total Protein (6.4-8.2) g/dL Albumin (3.4-5.0) g/dL Ceruloplasmin (18-53) mg/dL Triglycerides (42-150) mg/dL Cholesterol (120-200) mg/dL LDL Cholesterol, Calc (0-99) mg/dL HDL Cholesterol (40.0-60.0) mg/dL Cholesterol/HDL Ratio Ratio Tumor Marker AFP (0.5-8.0) ng/mL CA 19-9 Antigen (0.0-35.0) U/mL Beta HCG, Qual (0-5) mIU/mL Urine Color (Yellw/Straw) Urine Clarity (Clear) Urine pH (5.0-8.5) Ur Specific [place] (1.002-1.035) Urine Protein (Neg-Trace) mg/dL Urine Glucose (UA) (Negative) mg/dL Urine Ketones (Negative) mg/dL Urine Occult Blood (Negative) Urine Nitrate (Negative) Urine Bilirubin (Negative) Urine Urobilinogen (Less than 2) mg/dL Ur Leukocyte Esterase (Negative) Urine RBC (0-3) /hpf Urine WBC (0-5) /hpf Ur Squamous Epith Cells (0-5) /hpf Hyaline Casts (0-3) /lpf Micro UA Comment Ur Microscopic Review Urine Culture Comments Ur Random Creatinine (27-300) mg/dL Ur Random Sodium meq/L Peritoneal RBC (0-0) /mm3 Periton Nuc Cells (0-10) /mm3 Periton Neutrophils % Periton Lymphocytes % Peritoneal Monocytes % Periton Mesothelial % Periton Histiocytes % Peritoneal Tot Protein gm/dL Peritoneal Albumin g/dL Peritoneal LDH U/L Peritoneal Glucose mg/dL Peritoneal Amylase U/L Pleural pH Pleural RBC (0-0) /mm3 Pleural Nuc Cells (0-10) /mm3 Pleural Neutrophils % Pleural Lymphocytes % Pleural Monocytes % Pleural Plasma Cells % Pleural Histocytes % Pleural Mesothelial % Pleural Other Cells % Pleural Total Protein gm/dL Pleural LDH U/L Pleural Glucose mg/dL Pleural Amylase U/L Stl C.difficile DNA Amp (Negative) St C. diff Tox Epid 027 (Negative) Rheumatoid Factor (<14) IU/mL LEIF Screen (NEGATIVE) LEIF Titer LEIF Pattern SS-A Antibody (<1.0 NEGATIVE) AI SS-B Antibody (<1.0 NEGATIVE) AI Sm ([place]) Antibody (<1.0 NEGATIVE) AI SM/[employer]OR Antibody (<1.0 NEGATIVE) AI Scl-70 Antibody (<1.0 NEGATIVE) AI Anti-ds DNA Titer (Crith) Anti-ds DNA (Crithidia) (NEGATIVE) Mitochondria M2 IgG Ab (0-20.0) U Anti-Smooth Muscle Ab (Negative) Hepatitis A IgM Ab (Nonreactive) Hep Bs Antigen (Nonreactive) Hep B Core IgM Ab (Nonreactive) Hep C IgG Ab (Nonreactive) Blood Type Blood Type Recheck Antibody Screen 06/28/18 06/28/18 06/29/18 Range/Units 17:05 20:36 06:13 WBC 20.9 H (4.0-11.0) th/mm3 RBC 3.34 L (4.00-5.30) mil/mm3 Hgb 10.0 L (11.6-15.3) gm/dL Hct 30.9 L (35.0-46.0) % MCV 92.6 (80.0-100.0) fL MCH 30.1 (27.0-34.0) pg MCHC 32.5 (32.0-36.0) % RDW 15.2 (11.6-17.2) % Plt Count 163 (150-450) th/mm3 MPV 9.0 (7.0-11.0) fL Prelim Diff (Auto) Slide review pending Neut % (Auto) 30.2 (16.0-70.0) % Lymph % (Auto) 62.2 H (9.0-44.0) % [place] % (Auto) 4.1 (0.0-8.0) % Eos % (Auto) 3.0 (0.0-4.0) % Baso % (Auto) 0.5 (0.0-2.0) % Neut # (Auto) 6.3 (1.8-7.7) th/mm3 Lymph # (Auto) 13.0 H (1.0-4.8) th/mm3 [place] # (Auto) 0.9 (0.0-0.9) th/mm3 Eos # (Auto) 0.6 H (0.0-0.4) th/mm3 Baso # (Auto) 0.1 (0.0-0.2) th/mm3 WBC Differential Manual diff final Seg Neuts % (Manual) 26 (16-70) % Band Neuts % (Manual) 4 (0-6) % Lymphocytes % (Manual) 66 H (9-44) % Monocytes % (Manual) 2 (0-8) % Eosinophils % (Manual) 1 (0-4) % Basophils % (Manual) 1 (0-2) % Abs Neuts (Manual) 6.3 (1.8-7.7) th/mm3 Differential Comment . Smudge Cells Present H (None) Platelet Estimate Normal (Normal) Platelet Morphology Normal (Normal) RBC Morphology (Normal) Ovalocytes (None) ESR (0-30) mm/hr PT (9.8-11.6) sec INR Ratio Puncture Site Patient Temperature O2 Saturation (90-100) % ABG pH (7.380-7.420) ABG pCO2 (38-42) mmHg ABG pO2 (61-120) mmHg ABG HCO3 (22-26) mmol/L ABG O2 Content (12.0-20.0) Vol % ABG Base Excess (-2-2) mmol/L ABG Methemoglobin (0-2) % [place] Test Hemoglobin (12.0-16.0) G/DL Carboxyhemoglobin (0-4) % Inspired O2 % Critical Value Sodium (136-145) meq/L Potassium (3.5-5.1) meq/L Chloride (98-107) meq/L Carbon Dioxide (21.0-32.0) meq/L Anion Gap (5-15) meq/L BUN (7-18) mg/dL Creatinine (0.50-1.00) mg/dL Estimated GFR (>89) mL/min POC Glucose 139 H 134 H (68-110) mg/dl Random Glucose (74-106) mg/dL Calcium (8.5-10.1) mg/dL Iron (50-170) mcg/dL TIBC (250-450) mcg/dL % Saturation (20-50) % Ferritin (8-252) ng/mL Total Bilirubin (0.2-1.0) mg/dL Direct Bilirubin (0.0-0.2) mg/dL Indirect Bilirubin (0.0-0.8) mg/dL AST (15-37) U/L ALT (10-53) U/L Alkaline Phosphatase (45-117) U/L Ammonia (11-32) mcmol/L Troponin I (0.02-0.05) ng/mL Total Protein (6.4-8.2) g/dL Albumin (3.4-5.0) g/dL Ceruloplasmin (18-53) mg/dL Triglycerides (42-150) mg/dL Cholesterol (120-200) mg/dL LDL Cholesterol, Calc (0-99) mg/dL HDL Cholesterol (40.0-60.0) mg/dL Cholesterol/HDL Ratio Ratio Tumor Marker AFP (0.5-8.0) ng/mL CA 19-9 Antigen (0.0-35.0) U/mL Beta HCG, Qual (0-5) mIU/mL Urine Color (Yellw/Straw) Urine Clarity (Clear) Urine pH (5.0-8.5) Ur Specific [place] (1.002-1.035) Urine Protein (Neg-Trace) mg/dL Urine Glucose (UA) (Negative) mg/dL Urine Ketones (Negative) mg/dL Urine Occult Blood (Negative) Urine Nitrate (Negative) Urine Bilirubin (Negative) Urine Urobilinogen (Less than 2) mg/dL Ur Leukocyte Esterase (Negative) Urine RBC (0-3) /hpf Urine WBC (0-5) /hpf Ur Squamous Epith Cells (0-5) /hpf Hyaline Casts (0-3) /lpf Micro UA Comment Ur Microscopic Review Urine Culture Comments Ur Random Creatinine (27-300) mg/dL Ur Random Sodium meq/L Peritoneal RBC (0-0) /mm3 Periton Nuc Cells (0-10) /mm3 Periton Neutrophils % Periton Lymphocytes % Peritoneal Monocytes % Periton Mesothelial % Periton Histiocytes % Peritoneal Tot Protein gm/dL Peritoneal Albumin g/dL Peritoneal LDH U/L Peritoneal Glucose mg/dL Peritoneal Amylase U/L Pleural pH Pleural RBC (0-0) /mm3 Pleural Nuc Cells (0-10) /mm3 Pleural Neutrophils % Pleural Lymphocytes % Pleural Monocytes % Pleural Plasma Cells % Pleural Histocytes % Pleural Mesothelial % Pleural Other Cells % Pleural Total Protein gm/dL Pleural LDH U/L Pleural Glucose mg/dL Pleural Amylase U/L Stl C.difficile DNA Amp (Negative) St C. diff Tox Epid 027 (Negative) Rheumatoid Factor (<14) IU/mL LEIF Screen (NEGATIVE) LEIF Titer LEIF Pattern SS-A Antibody (<1.0 NEGATIVE) AI SS-B Antibody (<1.0 NEGATIVE) AI Sm ([place]) Antibody (<1.0 NEGATIVE) AI SM/[employer]OR Antibody (<1.0 NEGATIVE) AI Scl-70 Antibody (<1.0 NEGATIVE) AI Anti-ds DNA Titer (Crith) Anti-ds DNA (Crithidia) (NEGATIVE) Mitochondria M2 IgG Ab (0-20.0) U Anti-Smooth Muscle Ab (Negative) Hepatitis A IgM Ab (Nonreactive) Hep Bs Antigen (Nonreactive) Hep B Core IgM Ab (Nonreactive) Hep C IgG Ab (Nonreactive) Blood Type Blood Type Recheck Antibody Screen 06/29/18 06/29/18 06/29/18 Range/Units 06:13 11:30 11:30 WBC (4.0-11.0) th/mm3 RBC (4.00-5.30) mil/mm3 Hgb (11.6-15.3) gm/dL Hct (35.0-46.0) % MCV (80.0-100.0) fL MCH (27.0-34.0) pg MCHC (32.0-36.0) % RDW (11.6-17.2) % Plt Count (150-450) th/mm3 MPV (7.0-11.0) fL Prelim Diff (Auto) Neut % (Auto) (16.0-70.0) % Lymph % (Auto) (9.0-44.0) % [place] % (Auto) (0.0-8.0) % Eos % (Auto) (0.0-4.0) % Baso % (Auto) (0.0-2.0) % Neut # (Auto) (1.8-7.7) th/mm3 Lymph # (Auto) (1.0-4.8) th/mm3 [place] # (Auto) (0.0-0.9) th/mm3 Eos # (Auto) (0.0-0.4) th/mm3 Baso # (Auto) (0.0-0.2) th/mm3 WBC Differential Seg Neuts % (Manual) (16-70) % Band Neuts % (Manual) (0-6) % Lymphocytes % (Manual) (9-44) % Monocytes % (Manual) (0-8) % Eosinophils % (Manual) (0-4) % Basophils % (Manual) (0-2) % Abs Neuts (Manual) (1.8-7.7) th/mm3 Differential Comment Smudge Cells (None) Platelet Estimate (Normal) Platelet Morphology (Normal) RBC Morphology (Normal) Ovalocytes (None) ESR (0-30) mm/hr PT (9.8-11.6) sec INR Ratio Puncture Site Patient Temperature O2 Saturation (90-100) % ABG pH (7.380-7.420) ABG pCO2 (38-42) mmHg ABG pO2 (61-120) mmHg ABG HCO3 (22-26) mmol/L ABG O2 Content (12.0-20.0) Vol % ABG Base Excess (-2-2) mmol/L ABG Methemoglobin (0-2) % [place] Test Hemoglobin (12.0-16.0) G/DL Carboxyhemoglobin (0-4) % Inspired O2 % Critical Value Sodium 140 (136-145) meq/L Potassium 4.4 (3.5-5.1) meq/L Chloride 107 (98-107) meq/L Carbon Dioxide 24.3 (21.0-32.0) meq/L Anion Gap 9 (5-15) meq/L BUN 61 H (7-18) mg/dL Creatinine 3.82 H (0.50-1.00) mg/dL Estimated GFR 12 L (>89) mL/min POC Glucose (68-110) mg/dl Random Glucose 100 (74-106) mg/dL Calcium 8.0 L (8.5-10.1) mg/dL Iron (50-170) mcg/dL TIBC (250-450) mcg/dL % Saturation (20-50) % Ferritin (8-252) ng/mL Total Bilirubin (0.2-1.0) mg/dL Direct Bilirubin (0.0-0.2) mg/dL Indirect Bilirubin (0.0-0.8) mg/dL AST (15-37) U/L ALT (10-53) U/L Alkaline Phosphatase (45-117) U/L Ammonia (11-32) mcmol/L Troponin I (0.02-0.05) ng/mL Total Protein (6.4-8.2) g/dL Albumin (3.4-5.0) g/dL Ceruloplasmin (18-53) mg/dL Triglycerides (42-150) mg/dL Cholesterol (120-200) mg/dL LDL Cholesterol, Calc (0-99) mg/dL HDL Cholesterol (40.0-60.0) mg/dL Cholesterol/HDL Ratio Ratio Tumor Marker AFP (0.5-8.0) ng/mL CA 19-9 Antigen (0.0-35.0) U/mL Beta HCG, Qual (0-5) mIU/mL Urine Color Yellow (Yellw/Straw) Urine Clarity Clear (Clear) Urine pH 5.0 (5.0-8.5) Ur Specific [place] 1.011 (1.002-1.035) Urine Protein 30 H (Neg-Trace) mg/dL Urine Glucose (UA) Negative (Negative) mg/dL Urine Ketones Negative (Negative) mg/dL Urine Occult Blood Negative (Negative) Urine Nitrate Negative (Negative) Urine Bilirubin Negative (Negative) Urine Urobilinogen Less than 2 (Less than 2) mg/dL Ur Leukocyte Esterase Negative (Negative) Urine RBC Less than 1 (0-3) /hpf Urine WBC 2 (0-5) /hpf Ur Squamous Epith Cells 3 (0-5) /hpf Hyaline Casts 14 (0-3) /lpf Micro UA Comment Culture not ind Ur Microscopic Review Not Reportable Urine Culture Comments Culture not ind Ur Random Creatinine 77 (27-300) mg/dL Ur Random Sodium meq/L Peritoneal RBC (0-0) /mm3 Periton Nuc Cells (0-10) /mm3 Periton Neutrophils % Periton Lymphocytes % Peritoneal Monocytes % Periton Mesothelial % Periton Histiocytes % Peritoneal Tot Protein gm/dL Peritoneal Albumin g/dL Peritoneal LDH U/L Peritoneal Glucose mg/dL Peritoneal Amylase U/L Pleural pH Pleural RBC (0-0) /mm3 Pleural Nuc Cells (0-10) /mm3 Pleural Neutrophils % Pleural Lymphocytes % Pleural Monocytes % Pleural Plasma Cells % Pleural Histocytes % Pleural Mesothelial % Pleural Other Cells % Pleural Total Protein gm/dL Pleural LDH U/L Pleural Glucose mg/dL Pleural Amylase U/L Stl C.difficile DNA Amp (Negative) St C. diff Tox Epid 027 (Negative) Rheumatoid Factor (<14) IU/mL LEIF Screen (NEGATIVE) LEIF Titer LEIF Pattern SS-A Antibody (<1.0 NEGATIVE) AI SS-B Antibody (<1.0 NEGATIVE) AI Sm ([place]) Antibody (<1.0 NEGATIVE) AI SM/[employer]OR Antibody (<1.0 NEGATIVE) AI Scl-70 Antibody (<1.0 NEGATIVE) AI Anti-ds DNA Titer (Crith) Anti-ds DNA (Crithidia) (NEGATIVE) Mitochondria M2 IgG Ab (0-20.0) U Anti-Smooth Muscle Ab (Negative) Hepatitis A IgM Ab (Nonreactive) Hep Bs Antigen (Nonreactive) Hep B Core IgM Ab (Nonreactive) Hep C IgG Ab (Nonreactive) Blood Type Blood Type Recheck Antibody Screen 06/29/18 06/29/18 06/30/18 Range/Units 11:30 21:01 07:32 WBC 13.9 H (4.0-11.0) th/mm3 RBC 2.98 L (4.00-5.30) mil/mm3 Hgb 9.0 L (11.6-15.3) gm/dL Hct 27.4 L (35.0-46.0) % MCV 91.9 (80.0-100.0) fL MCH 30.3 (27.0-34.0) pg MCHC 33.0 (32.0-36.0) % RDW 15.3 (11.6-17.2) % Plt Count 145 L (150-450) th/mm3 MPV 9.0 (7.0-11.0) fL Prelim Diff (Auto) Slide review pending Neut % (Auto) 31.0 (16.0-70.0) % Lymph % (Auto) 60.1 H (9.0-44.0) % [place] % (Auto) 5.0 (0.0-8.0) % Eos % (Auto) 3.3 (0.0-4.0) % Baso % (Auto) 0.6 (0.0-2.0) % Neut # (Auto) 4.3 (1.8-7.7) th/mm3 Lymph # (Auto) 8.3 H (1.0-4.8) th/mm3 [place] # (Auto) 0.7 (0.0-0.9) th/mm3 Eos # (Auto) 0.5 H (0.0-0.4) th/mm3 Baso # (Auto) 0.1 (0.0-0.2) th/mm3 WBC Differential Manual diff final Seg Neuts % (Manual) 27 (16-70) % Band Neuts % (Manual) 2 (0-6) % Lymphocytes % (Manual) 67 H (9-44) % Monocytes % (Manual) 2 (0-8) % Eosinophils % (Manual) 2 (0-4) % Basophils % (Manual) (0-2) % Abs Neuts (Manual) 4.0 (1.8-7.7) th/mm3 Differential Comment . Smudge Cells (None) Platelet Estimate Low L (Normal) Platelet Morphology Normal (Normal) RBC Morphology Normal (Normal) Ovalocytes (None) ESR (0-30) mm/hr PT (9.8-11.6) sec INR Ratio Puncture Site Patient Temperature O2 Saturation (90-100) % ABG pH (7.380-7.420) ABG pCO2 (38-42) mmHg ABG pO2 (61-120) mmHg ABG HCO3 (22-26) mmol/L ABG O2 Content (12.0-20.0) Vol % ABG Base Excess (-2-2) mmol/L ABG Methemoglobin (0-2) % [place] Test Hemoglobin (12.0-16.0) G/DL Carboxyhemoglobin (0-4) % Inspired O2 % Critical Value Sodium (136-145) meq/L Potassium (3.5-5.1) meq/L Chloride (98-107) meq/L Carbon Dioxide (21.0-32.0) meq/L Anion Gap (5-15) meq/L BUN (7-18) mg/dL Creatinine (0.50-1.00) mg/dL Estimated GFR (>89) mL/min POC Glucose 156 H (68-110) mg/dl Random Glucose (74-106) mg/dL Calcium (8.5-10.1) mg/dL Iron (50-170) mcg/dL TIBC (250-450) mcg/dL % Saturation (20-50) % Ferritin (8-252) ng/mL Total Bilirubin (0.2-1.0) mg/dL Direct Bilirubin (0.0-0.2) mg/dL Indirect Bilirubin (0.0-0.8) mg/dL AST (15-37) U/L ALT (10-53) U/L Alkaline Phosphatase (45-117) U/L Ammonia (11-32) mcmol/L Troponin I (0.02-0.05) ng/mL Total Protein (6.4-8.2) g/dL Albumin (3.4-5.0) g/dL Ceruloplasmin (18-53) mg/dL Triglycerides (42-150) mg/dL Cholesterol (120-200) mg/dL LDL Cholesterol, Calc (0-99) mg/dL HDL Cholesterol (40.0-60.0) mg/dL Cholesterol/HDL Ratio Ratio Tumor Marker AFP (0.5-8.0) ng/mL CA 19-9 Antigen (0.0-35.0) U/mL Beta HCG, Qual (0-5) mIU/mL Urine Color (Yellw/Straw) Urine Clarity (Clear) Urine pH (5.0-8.5) Ur Specific [place] (1.002-1.035) Urine Protein (Neg-Trace) mg/dL Urine Glucose (UA) (Negative) mg/dL Urine Ketones (Negative) mg/dL Urine Occult Blood (Negative) Urine Nitrate (Negative) Urine Bilirubin (Negative) Urine Urobilinogen (Less than 2) mg/dL Ur Leukocyte Esterase (Negative) Urine RBC (0-3) /hpf Urine WBC (0-5) /hpf Ur Squamous Epith Cells (0-5) /hpf Hyaline Casts (0-3) /lpf Micro UA Comment Ur Microscopic Review Urine Culture Comments Ur Random Creatinine (27-300) mg/dL Ur Random Sodium 94 meq/L Peritoneal RBC (0-0) /mm3 Periton Nuc Cells (0-10) /mm3 Periton Neutrophils % Periton Lymphocytes % Peritoneal Monocytes % Periton Mesothelial % Periton Histiocytes % Peritoneal Tot Protein gm/dL Peritoneal Albumin g/dL Peritoneal LDH U/L Peritoneal Glucose mg/dL Peritoneal Amylase U/L Pleural pH Pleural RBC (0-0) /mm3 Pleural Nuc Cells (0-10) /mm3 Pleural Neutrophils % Pleural Lymphocytes % Pleural Monocytes % Pleural Plasma Cells % Pleural Histocytes % Pleural Mesothelial % Pleural Other Cells % Pleural Total Protein gm/dL Pleural LDH U/L Pleural Glucose mg/dL Pleural Amylase U/L Stl C.difficile DNA Amp (Negative) St C. diff Tox Epid 027 (Negative) Rheumatoid Factor (<14) IU/mL LEIF Screen (NEGATIVE) LEIF Titer LEIF Pattern SS-A Antibody (<1.0 NEGATIVE) AI SS-B Antibody (<1.0 NEGATIVE) AI Sm ([place]) Antibody (<1.0 NEGATIVE) AI SM/[employer]OR Antibody (<1.0 NEGATIVE) AI Scl-70 Antibody (<1.0 NEGATIVE) AI Anti-ds DNA Titer (Crith) Anti-ds DNA (Crithidia) (NEGATIVE) Mitochondria M2 IgG Ab (0-20.0) U Anti-Smooth Muscle Ab (Negative) Hepatitis A IgM Ab (Nonreactive) Hep Bs Antigen (Nonreactive) Hep B Core IgM Ab (Nonreactive) Hep C IgG Ab (Nonreactive) Blood Type Blood Type Recheck Antibody Screen 06/30/18 06/30/18 06/30/18 Range/Units 07:52 08:07 11:53 WBC (4.0-11.0) th/mm3 RBC (4.00-5.30) mil/mm3 Hgb (11.6-15.3) gm/dL Hct (35.0-46.0) % MCV (80.0-100.0) fL MCH (27.0-34.0) pg MCHC (32.0-36.0) % RDW (11.6-17.2) % Plt Count (150-450) th/mm3 MPV (7.0-11.0) fL Prelim Diff (Auto) Neut % (Auto) (16.0-70.0) % Lymph % (Auto) (9.0-44.0) % [place] % (Auto) (0.0-8.0) % Eos % (Auto) (0.0-4.0) % Baso % (Auto) (0.0-2.0) % Neut # (Auto) (1.8-7.7) th/mm3 Lymph # (Auto) (1.0-4.8) th/mm3 [place] # (Auto) (0.0-0.9) th/mm3 Eos # (Auto) (0.0-0.4) th/mm3 Baso # (Auto) (0.0-0.2) th/mm3 WBC Differential Seg Neuts % (Manual) (16-70) % Band Neuts % (Manual) (0-6) % Lymphocytes % (Manual) (9-44) % Monocytes % (Manual) (0-8) % Eosinophils % (Manual) (0-4) % Basophils % (Manual) (0-2) % Abs Neuts (Manual) (1.8-7.7) th/mm3 Differential Comment Smudge Cells (None) Platelet Estimate (Normal) Platelet Morphology (Normal) RBC Morphology (Normal) Ovalocytes (None) ESR (0-30) mm/hr PT (9.8-11.6) sec INR Ratio Puncture Site Patient Temperature O2 Saturation (90-100) % ABG pH (7.380-7.420) ABG pCO2 (38-42) mmHg ABG pO2 (61-120) mmHg ABG HCO3 (22-26) mmol/L ABG O2 Content (12.0-20.0) Vol % ABG Base Excess (-2-2) mmol/L ABG Methemoglobin (0-2) % [place] Test Hemoglobin (12.0-16.0) G/DL Carboxyhemoglobin (0-4) % Inspired O2 % Critical Value Sodium 141 (136-145) meq/L Potassium 4.4 (3.5-5.1) meq/L Chloride 108 H (98-107) meq/L Carbon Dioxide 25.5 (21.0-32.0) meq/L Anion Gap 8 (5-15) meq/L BUN 62 H (7-18) mg/dL Creatinine 3.73 H (0.50-1.00) mg/dL Estimated GFR 12 L (>89) mL/min POC Glucose 122 H 140 H (68-110) mg/dl Random Glucose 117 H (74-106) mg/dL Calcium 7.5 L (8.5-10.1) mg/dL Iron (50-170) mcg/dL TIBC (250-450) mcg/dL % Saturation (20-50) % Ferritin (8-252) ng/mL Total Bilirubin (0.2-1.0) mg/dL Direct Bilirubin (0.0-0.2) mg/dL Indirect Bilirubin (0.0-0.8) mg/dL AST (15-37) U/L ALT (10-53) U/L Alkaline Phosphatase (45-117) U/L Ammonia (11-32) mcmol/L Troponin I (0.02-0.05) ng/mL Total Protein (6.4-8.2) g/dL Albumin (3.4-5.0) g/dL Ceruloplasmin (18-53) mg/dL Triglycerides (42-150) mg/dL Cholesterol (120-200) mg/dL LDL Cholesterol, Calc (0-99) mg/dL HDL Cholesterol (40.0-60.0) mg/dL Cholesterol/HDL Ratio Ratio Tumor Marker AFP (0.5-8.0) ng/mL CA 19-9 Antigen (0.0-35.0) U/mL Beta HCG, Qual (0-5) mIU/mL Urine Color (Yellw/Straw) Urine Clarity (Clear) Urine pH (5.0-8.5) Ur Specific [place] (1.002-1.035) Urine Protein (Neg-Trace) mg/dL Urine Glucose (UA) (Negative) mg/dL Urine Ketones (Negative) mg/dL Urine Occult Blood (Negative) Urine Nitrate (Negative) Urine Bilirubin (Negative) Urine Urobilinogen (Less than 2) mg/dL Ur Leukocyte Esterase (Negative) Urine RBC (0-3) /hpf Urine WBC (0-5) /hpf Ur Squamous Epith Cells (0-5) /hpf Hyaline Casts (0-3) /lpf Micro UA Comment Ur Microscopic Review Urine Culture Comments Ur Random Creatinine (27-300) mg/dL Ur Random Sodium meq/L Peritoneal RBC (0-0) /mm3 Periton Nuc Cells (0-10) /mm3 Periton Neutrophils % Periton Lymphocytes % Peritoneal Monocytes % Periton Mesothelial % Periton Histiocytes % Peritoneal Tot Protein gm/dL Peritoneal Albumin g/dL Peritoneal LDH U/L Peritoneal Glucose mg/dL Peritoneal Amylase U/L Pleural pH Pleural RBC (0-0) /mm3 Pleural Nuc Cells (0-10) /mm3 Pleural Neutrophils % Pleural Lymphocytes % Pleural Monocytes % Pleural Plasma Cells % Pleural Histocytes % Pleural Mesothelial % Pleural Other Cells % Pleural Total Protein gm/dL Pleural LDH U/L Pleural Glucose mg/dL Pleural Amylase U/L Stl C.difficile DNA Amp (Negative) St C. diff Tox Epid 027 (Negative) Rheumatoid Factor (<14) IU/mL LEIF Screen (NEGATIVE) LEIF Titer LEIF Pattern SS-A Antibody (<1.0 NEGATIVE) AI SS-B Antibody (<1.0 NEGATIVE) AI Sm ([place]) Antibody (<1.0 NEGATIVE) AI SM/[employer]OR Antibody (<1.0 NEGATIVE) AI Scl-70 Antibody (<1.0 NEGATIVE) AI Anti-ds DNA Titer ([place]) Anti-ds DNA ([place]) (NEGATIVE) Mitochondria M2 IgG Ab (0-20.0) U Anti-Smooth Muscle Ab (Negative) Hepatitis A IgM Ab (Nonreactive) Hep Bs Antigen (Nonreactive) Hep B Core IgM Ab (Nonreactive) Hep C IgG Ab (Nonreactive) Blood Type Blood Type Recheck Antibody Screen 06/30/18 06/30/18 07/01/18 Range/Units 17:12 20:22 04:43 WBC 13.1 H (4.0-11.0) th/mm3 RBC 2.96 L (4.00-5.30) mil/mm3 Hgb 8.8 L (11.6-15.3) gm/dL Hct 27.5 L (35.0-46.0) % MCV 93.0 (80.0-100.0) fL MCH 29.8 (27.0-34.0) pg MCHC 32.0 (32.0-36.0) % RDW 15.0 (11.6-17.2) % Plt Count 138 L (150-450) th/mm3 MPV 9.2 (7.0-11.0) fL Prelim Diff (Auto) Slide review pending Neut % (Auto) 26.3 (16.0-70.0) % Lymph % (Auto) 65.5 H (9.0-44.0) % [place] % (Auto) 4.1 (0.0-8.0) % Eos % (Auto) 3.4 (0.0-4.0) % Baso % (Auto) 0.7 (0.0-2.0) % Neut # (Auto) 3.4 (1.8-7.7) th/mm3 Lymph # (Auto) 8.6 H (1.0-4.8) th/mm3 [place] # (Auto) 0.5 (0.0-0.9) th/mm3 Eos # (Auto) 0.4 (0.0-0.4) th/mm3 Baso # (Auto) 0.1 (0.0-0.2) th/mm3 WBC Differential Manual diff final Seg Neuts % (Manual) 30 (16-70) % Band Neuts % (Manual) (0-6) % Lymphocytes % (Manual) 64 H (9-44) % Monocytes % (Manual) 2 (0-8) % Eosinophils % (Manual) 3 (0-4) % Basophils % (Manual) 1 (0-2) % Abs Neuts (Manual) 3.9 (1.8-7.7) th/mm3 Differential Comment . Smudge Cells Present H (None) Platelet Estimate Low L (Normal) Platelet Morphology Normal (Normal) RBC Morphology Normal (Normal) Ovalocytes (None) ESR (0-30) mm/hr PT (9.8-11.6) sec INR Ratio Puncture Site Patient Temperature O2 Saturation (90-100) % ABG pH (7.380-7.420) ABG pCO2 (38-42) mmHg ABG pO2 (61-120) mmHg ABG HCO3 (22-26) mmol/L ABG O2 Content (12.0-20.0) Vol % ABG Base Excess (-2-2) mmol/L ABG Methemoglobin (0-2) % [place] Test Hemoglobin (12.0-16.0) G/DL Carboxyhemoglobin (0-4) % Inspired O2 % Critical Value Sodium (136-145) meq/L Potassium (3.5-5.1) meq/L Chloride (98-107) meq/L Carbon Dioxide (21.0-32.0) meq/L Anion Gap (5-15) meq/L BUN (7-18) mg/dL Creatinine (0.50-1.00) mg/dL Estimated GFR (>89) mL/min POC Glucose 171 H 141 H (68-110) mg/dl Random Glucose (74-106) mg/dL Calcium (8.5-10.1) mg/dL Iron (50-170) mcg/dL TIBC (250-450) mcg/dL % Saturation (20-50) % Ferritin (8-252) ng/mL Total Bilirubin (0.2-1.0) mg/dL Direct Bilirubin (0.0-0.2) mg/dL Indirect Bilirubin (0.0-0.8) mg/dL AST (15-37) U/L ALT (10-53) U/L Alkaline Phosphatase (45-117) U/L Ammonia (11-32) mcmol/L Troponin I (0.02-0.05) ng/mL Total Protein (6.4-8.2) g/dL Albumin (3.4-5.0) g/dL Ceruloplasmin (18-53) mg/dL Triglycerides (42-150) mg/dL Cholesterol (120-200) mg/dL LDL Cholesterol, Calc (0-99) mg/dL HDL Cholesterol (40.0-60.0) mg/dL Cholesterol/HDL Ratio Ratio Tumor Marker AFP (0.5-8.0) ng/mL CA 19-9 Antigen (0.0-35.0) U/mL Beta HCG, Qual (0-5) mIU/mL Urine Color (Yellw/Straw) Urine Clarity (Clear) Urine pH (5.0-8.5) Ur Specific [place] (1.002-1.035) Urine Protein (Neg-Trace) mg/dL Urine Glucose (UA) (Negative) mg/dL Urine Ketones (Negative) mg/dL Urine Occult Blood (Negative) Urine Nitrate (Negative) Urine Bilirubin (Negative) Urine Urobilinogen (Less than 2) mg/dL Ur Leukocyte Esterase (Negative) Urine RBC (0-3) /hpf Urine WBC (0-5) /hpf Ur Squamous Epith Cells (0-5) /hpf Hyaline Casts (0-3) /lpf Micro UA Comment Ur Microscopic Review Urine Culture Comments Ur Random Creatinine (27-300) mg/dL Ur Random Sodium meq/L Peritoneal RBC (0-0) /mm3 [place]iton Nuc Cells (0-10) /mm3 Periton Neutrophils % Periton Lymphocytes % Peritoneal Monocytes % Periton Mesothelial % Periton Histiocytes % Peritoneal Tot Protein gm/dL Peritoneal Albumin g/dL Peritoneal LDH U/L Peritoneal Glucose mg/dL Peritoneal Amylase U/L Pleural pH Pleural RBC (0-0) /mm3 Pleural Nuc Cells (0-10) /mm3 Pleural Neutrophils % Pleural Lymphocytes % Pleural Monocytes % Pleural Plasma Cells % Pleural Histocytes % Pleural Mesothelial % Pleural Other Cells % Pleural Total Protein gm/dL Pleural LDH U/L Pleural Glucose mg/dL Pleural Amylase U/L Stl C.difficile DNA Amp (Negative) St C. diff Tox Epid 027 (Negative) Rheumatoid Factor (<14) IU/mL LEIF Screen (NEGATIVE) LEIF Titer LEIF Pattern SS-A Antibody (<1.0 NEGATIVE) AI SS-B Antibody (<1.0 NEGATIVE) AI Sm ([place]) Antibody (<1.0 NEGATIVE) AI SM/[employer]OR Antibody (<1.0 NEGATIVE) AI Scl-70 Antibody (<1.0 NEGATIVE) AI Anti-ds DNA Titer (Crith) Anti-ds DNA (Crithidia) (NEGATIVE) Mitochondria M2 IgG Ab (0-20.0) U Anti-Smooth Muscle Ab (Negative) Hepatitis A IgM Ab (Nonreactive) Hep Bs Antigen (Nonreactive) Hep B Core IgM Ab (Nonreactive) Hep C IgG Ab (Nonreactive) Blood Type Blood Type Recheck Antibody Screen 07/01/18 07/01/18 Range/Units 04:43 07:53 WBC (4.0-11.0) th/mm3 RBC (4.00-5.30) mil/mm3 Hgb (11.6-15.3) gm/dL Hct (35.0-46.0) % MCV (80.0-100.0) fL MCH (27.0-34.0) pg MCHC (32.0-36.0) % RDW (11.6-17.2) % Plt Count (150-450) th/mm3 MPV (7.0-11.0) fL Prelim Diff (Auto) Neut % (Auto) (16.0-70.0) % Lymph % (Auto) (9.0-44.0) % Bledsoe % (Auto) (0.0-8.0) % Eos % (Auto) (0.0-4.0) % Baso % (Auto) (0.0-2.0) % Neut # (Auto) (1.8-7.7) th/mm3 Lymph # (Auto) (1.0-4.8) th/mm3 Bledsoe # (Auto) (0.0-0.9) th/mm3 Eos # (Auto) (0.0-0.4) th/mm3 Baso # (Auto) (0.0-0.2) th/mm3 WBC Differential Seg Neuts % (Manual) (16-70) % Band Neuts % (Manual) (0-6) % Lymphocytes % (Manual) (9-44) % Monocytes % (Manual) (0-8) % Eosinophils % (Manual) (0-4) % Basophils % (Manual) (0-2) % Abs Neuts (Manual) (1.8-7.7) th/mm3 Differential Comment Smudge Cells (None) Platelet Estimate (Normal) Platelet Morphology (Normal) RBC Morphology (Normal) Ovalocytes (None) ESR (0-30) mm/hr PT (9.8-11.6) sec INR Ratio Puncture Site Patient Temperature O2 Saturation (90-100) % ABG pH (7.380-7.420) ABG pCO2 (38-42) mmHg ABG pO2 (61-120) mmHg ABG HCO3 (22-26) mmol/L ABG O2 Content (12.0-20.0) Vol % ABG Base Excess (-2-2) mmol/L ABG Methemoglobin (0-2) % [place]lysses Test Hemoglobin (12.0-16.0) G/DL Carboxyhemoglobin (0-4) % Inspired O2 % Critical Value Sodium 142 (136-145) meq/L Potassium 4.6 (3.5-5.1) meq/L Chloride 110 H (98-107) meq/L Carbon Dioxide 22.7 (21.0-32.0) meq/L Anion Gap 9 (5-15) meq/L BUN 56 H (7-18) mg/dL Creatinine 3.40 H (0.50-1.00) mg/dL Estimated GFR 13 L (>89) mL/min POC Glucose 121 H (68-110) mg/dl Random Glucose 111 H (74-106) mg/dL Calcium 7.5 L (8.5-10.1) mg/dL Iron (50-170) mcg/dL TIBC (250-450) mcg/dL % Saturation (20-50) % Ferritin (8-252) ng/mL Total Bilirubin (0.2-1.0) mg/dL Direct Bilirubin (0.0-0.2) mg/dL Indirect Bilirubin (0.0-0.8) mg/dL AST (15-37) U/L ALT (10-53) U/L Alkaline Phosphatase (45-117) U/L Ammonia (11-32) mcmol/L Troponin I (0.02-0.05) ng/mL Total Protein (6.4-8.2) g/dL Albumin (3.4-5.0) g/dL Ceruloplasmin (18-53) mg/dL Triglycerides (42-150) mg/dL Cholesterol (120-200) mg/dL LDL Cholesterol, Calc (0-99) mg/dL HDL Cholesterol (40.0-60.0) mg/dL Cholesterol/HDL Ratio Ratio Tumor Marker AFP (0.5-8.0) ng/mL CA 19-9 Antigen (0.0-35.0) U/mL Beta HCG, Qual (0-5) mIU/mL Urine Color (Yellw/Straw) Urine Clarity (Clear) Urine pH (5.0-8.5) Ur Specific [place] (1.002-1.035) Urine Protein (Neg-Trace) mg/dL Urine Glucose (UA) (Negative) mg/dL Urine Ketones (Negative) mg/dL Urine Occult Blood (Negative) Urine Nitrate (Negative) Urine Bilirubin (Negative) Urine Urobilinogen (Less than 2) mg/dL Ur Leukocyte Esterase (Negative) Urine RBC (0-3) /hpf Urine WBC (0-5) /hpf Ur Squamous Epith Cells (0-5) /hpf Hyaline Casts (0-3) /lpf Micro UA Comment Ur Microscopic Review Urine Culture Comments Ur Random Creatinine (27-300) mg/dL Ur Random Sodium meq/L Peritoneal RBC (0-0) /mm3 Periton Nuc Cells (0-10) /mm3 Periton Neutrophils % Periton Lymphocytes % Peritoneal Monocytes % Periton Mesothelial % Periton Histiocytes % Peritoneal Tot Protein gm/dL Peritoneal Albumin g/dL Peritoneal LDH U/L Peritoneal Glucose mg/dL Peritoneal Amylase U/L Pleural pH Pleural RBC (0-0) /mm3 Pleural Nuc Cells (0-10) /mm3 Pleural Neutrophils % Pleural Lymphocytes % Pleural Monocytes % Pleural Plasma Cells % Pleural Histocytes % Pleural Mesothelial % Pleural Other Cells % Pleural Total Protein gm/dL Pleural LDH U/L Pleural Glucose mg/dL Pleural Amylase U/L Stl C.difficile DNA Amp (Negative) St C. diff Tox Epid 027 (Negative) Rheumatoid Factor (<14) IU/mL LEIF Screen (NEGATIVE) LEIF Titer LEIF Pattern SS-A Antibody (<1.0 NEGATIVE) AI SS-B Antibody (<1.0 NEGATIVE) AI Sm ([place]) Antibody (<1.0 NEGATIVE) AI SM/[employer]OR Antibody (<1.0 NEGATIVE) AI Scl-70 Antibody (<1.0 NEGATIVE) AI Anti-ds DNA Titer (Crith) Anti-ds DNA (Crithidia) (NEGATIVE) Mitochondria M2 IgG Ab (0-20.0) U Anti-Smooth Muscle Ab (Negative) Hepatitis A IgM Ab (Nonreactive) Hep Bs Antigen (Nonreactive) Hep B Core IgM Ab (Nonreactive) Hep C IgG Ab (Nonreactive) Blood Type Blood Type Recheck Antibody Screen Imaging Data Radiologist's impression: Abdomen Ultrasound 06/25/18 00:00 CONCLUSION: 1. Moderate ascites 2. Hepatic cirrhosis Abdomen/Pelvis CT 06/25/18 00:00 CONCLUSION: 1. Suspected cirrhotic liver. 2. Mild to moderate amount of ascites. 3. Bilateral pleural effusions being mild on the right and minimal on the left. 4. Increased density at the inferior right middle lobe and right lower lobe likely related to consolidation or atelectasis. 5. Anasarca 6. Tiny nonobstructing left renal stone. Chest Ultrasound 06/25/18 00:00 CONCLUSION: 1. Large right pleural effusion without appreciable loculation. Chest X-Ray 06/25/18 00:00 CONCLUSION: No pneumothorax following right thoracentesis. Paracentesis Ultrasound 06/25/18 00:00 CONCLUSION: 1. Uncomplicated paracentesis. A suture was placed to gain hemostasis secondary to a small cutaneous venous bleed. This suture can be removed in 2-3 days. Thoracentesis Ultrasound 06/25/18 00:00 CONCLUSION: 1. Uncomplicated right thoracentesis. Chest X-Ray 06/25/18 06:47 CONCLUSION: Right mid lung and basilar density characteristic of a small to moderate pleural effusion with underlying airspace disease. Head CT 06/25/18 06:47 CONCLUSION: 1. Stable evaluation of the head. 2. No evidence of acute infarct, hemorrhage, mass or edema. . Chest X-Ray 06/28/18 10:46 CONCLUSION: Hypoaerated lungs. No evidence of significant airspace disease or congestion. Paracentesis Ultrasound 06/29/18 00:00 CONCLUSION: 1. Uncomplicated paracentesis. ECG Data Attestation: I personally reviewed and interpreted this ECG as follows: Interpretation: Twelve-lead EKG was reviewed by me. Normal sinus rhythm, left axis deviation, tachycardia, questionable old inferior and anterior OH, poor R wave progression, nonspecific ST-T wave changes, low voltage EKG. Heart rate of 106 bpm. Discharge Plan Discharge Disposition Patient Disposition: ED Admit(ED Internal Use Only) Discharge Condition Condition: Fair Discharge Order Discharge Orders: ED Use Only Admit Order (Routine); Ordered 06/25/18 Ordered By: Anoop Dennis Discharge Details Diagnosis: Pneumonia, Acute hypoxemic respiratory failure Physicians Team ED Provider: Anoop Dennis Primary Care Provider: UNKNOWN, Attending Provider: Alva Fields Other Providers: Johan Wilkerson ; Dina Garza ; Goldie Daniels ; Papi Busby ; Alvin Esquivel ; Sherron Gipson ; Paulette Flores N Status ED Status: Left Department Discharge Information Discharge Date/Time: 06/25/18 12:35
--- NOTE | 2018-06-25 07:10 | XR ---
EXAM DATE: 06/25/2018 6:59 AM EST AGE/SEX: 72 years / Female INDICATIONS: Short of breath for 2 months. CLINICAL DATA: This is the patient's initial encounter. Patient reports that signs and symptoms have been present for 2 months and indicates a pain score of 0/10. MEDICAL/SURGICAL HISTORY: Asthma. Thyroidectomy. Left ankle. COMPARISON: . FINDINGS: Increased opacity is identified throughout the right midlung and base. Lungs are hypoaerated. Left lung is clear. Heart and mediastinal structures appear normal. CONCLUSION: Right mid lung and basilar density characteristic of a small to moderate pleural effusion with underl ruth airspace disease. Electronically signed by: Mo Brooks MD 06/25/2018 7:09 AM EST
[2018-06-25 07:24] LABS: Baso # (Auto) 0.1 th/mm3 (0.0-0.2); Baso % (Auto) 0.6 % (0.0-2.0); Eos # (Auto) 0.4 th/mm3 (0.0-0.4); Eos % (Auto) 1.8 % (0.0-4.0); Hematocrit 35.1 % (35.0-46.0); Hemoglobin 11.6 gm/dL (11.6-15.3); Lymph # (Auto) 12.6 th/mm3 (1.0-4.8); Lymph % (Auto) 60.8 % (9.0-44.0); Mean Corpuscular HGB Conc 33.1 % (32.0-36.0); Mean Corpuscular Hemoglobin 30.6 pg (27.0-34.0); Mean Corpuscular Volume 92.3 fL (80.0-100.0); Mean Platelet Volume 9.1 fL (7.0-11.0); Mono # (Auto) 0.9 th/mm3 (0.0-0.9); Mono % (Auto) 4.4 % (0.0-8.0); Neut # (Auto) 6.7 th/mm3 (1.8-7.7); Neut % (Auto) 32.4 % (16.0-70.0); Platelet Count 221 th/mm3 (150-450); Red Blood Count 3.81 mil/mm3 (4.00-5.30); Red Cell Distribution Width 15.7 % (11.6-17.2); White Blood Count 20.7 th/mm3 (4.0-11.0)
[2018-06-25 07:28] LABS: INR 1.1 Ratio; Prothrombin Time 11.4 sec (9.8-11.6)
[2018-06-25 07:36] LABS: Alanine Aminotransferase 21 U/L (10-53); Albumin 2.5 g/dL (3.4-5.0); Anion Gap 9 meq/L (5-15); Aspartate Aminotransferase 41 U/L (15-37); Blood Urea Nitrogen 43 mg/dL (7-18); Carbon Dioxide 25.8 meq/L (21.0-32.0); Chloride 106 meq/L (98-107); Glomerular Filtration Rate 17 mL/min (>89); Glucose,Random 184 mg/dL (74-106); Sodium 141 meq/L (136-145)
[2018-06-25] MEDS ORDERED: Azithromycin Inj 500 MG in Sodium Chlor 0.9% Inj 250 ML IV.SIG ONE (07:37)
[2018-06-25 07:40] LABS: Alkaline Phosphatase 211 U/L (45-117)
--- NOTE | 2018-06-25 07:43 | CT ---
EXAM DATE: 06/25/2018 7:35 AM EST AGE/SEX: 72 years / Female INDICATIONS: Trauma, fall onto posterior head one wee ago. CLINICAL DATA: This is the patient's initial encounter. Patient reports that signs and symptoms have been present for 1 week and indicates a pain score of 8/10. MEDICAL/SURGICAL HISTORY: Leukemia. Hypertension. Diabetes. Thyroidectomy. RADIATION DOSE: 56.35 CTDI (mGy) [place] [facility] [place]. . TECHNIQUE: CT of the head without contrast. Using automated exposure control and adjustment of the mA and/or kV according to patient size, radiation dose was kept as low as reasonably achievable to ob tain optimal diagnostic quality images. DICOM format image data is available electronically for revi ew and comparison. FINDINGS: Cerebrum: The ventricles are normal for age. No evidence of midline shift, mass lesion, hemorrhage or acute infarction. No extraaxial fluid collections are seen. Empty sella appearance is noted. Posterior Fossa: The cerebellum and brainstem are intact. The 4th ventricle is midline. The cerebe llopontine angle is unremarkable. Extracranial: The visualized portion of the orbits is intact. Skull: The calvaria is intact. No evidence of skull fracture. CONCLUSION: 1. Stable evaluation of the head. 2. No evidence of acute infarct, hemorrhage, mass or edema. . Electronically signed by: Mo Brooks MD 06/25/2018 7:42 AM EST
[2018-06-25] MEDS ORDERED: Sodium Chlor 0.9% Inj 250 ML ONE (07:59)
[2018-06-25 08:07] LABS: ABG Base Excess 1.1 mmol/L (-2-2); ABG PCO2 37 mmHg (38-42); ABG PO2 60 mmHg (61-120)
[2018-06-25 08:55] LABS: Eosinophils 1 % (0-4); Lymphocytes 59 % (9-44); Monocytes 3 % (0-8); Platelet Estimate Normal (Normal); Platelet Morphology Normal (Normal); Smudge Cells Present
--- NOTE | 2018-06-25 11:33 | P.HPIM ---
History of Present Illness Primary Care Physician: UNKNOWN Chief Complaint: shortness of breath History of Present Illness: patient is a 72 y/o female with history of asthma, diabetes and leukemia who presented to ER with shortness of breath. she says that she's had sob over the past two months but it seems to be getting worse to the extent that now she can hardly walk. she reports two-pillow orthopnea and occasional cough. she had some on and off low-grade fever and chills. she's also complaining of worsening abdominal distention and swelling of the legs. she says that he had a few falls recently because of sob and generalized weakness. Inpatient Certification: I certify that the inpatient services were ordered in accordance with Medicare regulations governing the order. This includes certification that hospital inpatient services are reasonable and necessary and in the case of services not specified as inpatient-only under 42 CFR 419.22(n), that they are appropriately provided as inpatient services in accordance to with the 2-midnight benchmark under 43 CFR 412.3(e) Estimated Total Length of Stay (Days): 2 Plans for Post Hospital Care: Home Review of Systems All other systems reviewed negative except as stated in HPI PMFSH - History History Provided By: Patient - Medical History Medical History: Medical History (Last Reviewed 06/25/18 @ 11:27 by Denise Carr MD) Asthma Diabetes Gout Hypertension Leukemia - Surgical History Surgical History: Surgical History (Last Reviewed 06/25/18 @ 11:27 by Denise Carr MD) H/O foot surgery H/O thyroidectomy - Family History Family History: Family History (Last Updated 06/25/18 @ 11:27 by Denise Carr MD) Other No pertinent family history - Tobacco History Second Hand Smoke Exposure: No Smoking Status: Never smoker - Alcohol History How Often Do You Have a Drink Containing Alcohol: Monthly or less - Substance Use History Substance History: No History of Abuse - Travel History Recent Travel in the [place] Within the Last 8 Weeks: No Recent Travel Out of the Country Within the Last 8 Weeks: No - Immunization History Tetanus Immunization: Unsure Medications and Allergies Allergies Allergy/AdvReac Type Severity Reaction Status Date / Time No Known Allergies Allergy Verified 06/25/18 05:25 Home Medications Medication Instructions Recorded Confirmed Type Unable to Obtain Home Meds 06/25/18 06/25/18 History Exam Vital signs: Vital Signs 06/25/18 05:16 06/25/18 06:47 06/25/18 10:54 Temperature 98.7 F 98.0 F Pulse Rate 103 H 99 H Respiratory Rate 20 22 Blood Pressure 133/82 139/73 Pulse Oximetry 96 95 98 Intake & Output 06/24/18 06/25/18 06/25/18 18:59 06:59 18:59 Intake Total 350 / 350 Balance 350 / 350 Weight 81.647 kg Intake: IV 350 / 350 Azithromycin Inj 500 MG In NS 250 / 250 Inj 250 ML @ 250 mls/hr IV.SIG ONCE ONE Rx#:[id number] Rocephin Inj 1,000 MG In NS Inj 100 / 100 100 ML @ 200 mls/hr IV.SIG ONCE ONE Rx#:[id number] - Constitutional mild distress - Routine HEENT Exam Eye: Present: PERRL - Routine Neck Exam Present: supple - Routine Respiratory Exam Comments: diminished air entry right lung. - Routine Cardiovascular Exam Present: RRR - Routine Abdominal Exam Present: soft - Routine Extremities Exam Comments: bilateral pedal edema. - Routine Neurological Exam Present: alert, oriented X3 Results - Labs CBC & Chem 7: 06/25/18 07:15 06/25/18 07:15 Labs: Short CBC 06/25/18 Range/Units 07:15 WBC 20.7 H (4.0-11.0) th/mm3 Hgb 11.6 (11.6-15.3) gm/dL Hct 35.1 (35.0-46.0) % Plt Count 221 (150-450) th/mm3 BMP 06/25/18 07:15 Sodium 141 Potassium 4.0 Chloride 106 Carbon Dioxide 25.8 BUN 43 H Creatinine 2.75 H Calcium 8.0 L Cardiac Enzymes 06/25/18 Range/Units 07:15 Troponin I Less than 0.02 L (0.02-0.05) ng/mL Liver Function 06/25/18 Range/Units 07:15 Total Bilirubin 0.8 (0.2-1.0) mg/dL AST 41 H (15-37) U/L ALT 21 (10-53) U/L Alkaline Phosphatase 211 H (45-117) U/L Albumin 2.5 L (3.4-5.0) g/dL - Imaging Impressions Chest X-Ray 06/25/18 06:47 CONCLUSION: Right mid lung and basilar density characteristic of a small to moderate pleural effusion with underlying airspace disease. Head CT 06/25/18 06:47 CONCLUSION: 1. Stable evaluation of the head. 2. No evidence of acute infarct, hemorrhage, mass or edema. . Caprini VTE Risk Assessment Caprini VTE Risk Assessment: Moderate/High Risk (score >= 2) Caprini Risk Assessment Model: Point Value = 1 Point Value = 2 Point Value = 3 Point Value = 5 Age 41-60 Minor surgery BMI > 25 kg/m2 Swollen legs Varicose veins or History of unexplained or recurrent spontaneous Oral contraceptives or hormone replacement Sepsis (< 1 month) Serious lung disease, including pneumonia (< 1 month) Abnormal pulmonary function Acute myocardial infarction Congestive heart failure (< 1 month) History of inflammatory bowel disease Medical patient at bed rest Age 61-74 Arthroscopic surgery Major open surgery (> 45 min) Laparoscopic surgery (> 45 min) Malignancy Confined to bed (> 72 hours) Immobilizing plaster cast Central venous access Age >= 75 History of VTE Family history of VTE Factor V Leiden Prothrombin [id number] Lupus anticoagulant Anticardiolipin antibodies Elevated serum homocysteine Heparin-induced thrombocytopenia Other congenital or acquired thrombophilia Stroke (< 1 month) Elective arthroplasty Hip, pelvis, or leg fracture Acute spinal cord injury (< 1 month) Prophylaxis Regimen: Total Risk Factor Score Risk Level Prophylaxis Regimen 0-1 Low Early ambulation 2 Moderate Order ONE of the following: *Sequential Compression Device (SCD) *Heparin 5000 units SQ BID 3-4 Higher Order ONE of the following medications: *Heparin 5000 units SQ TID *Enoxaparin/Lovenox 40 mg SQ daily (WT < 150 kg, CrCl > 30 mL/min) *Enoxaparin/Lovenox 30 mg SQ daily (WT < 150 kg, CrCl > 10-29 mL/min) *Enoxaparin/Lovenox 30 mg SQ BID (WT < 150 kg, CrCl > 30 mL/min) AND/OR *Sequential Compression Device (SCD) 5 or more Highest Order ONE of the following medications: *Heparin 5000 units SQ TID (Preferred with Epidurals) *Enoxaparin/Lovenox 40 mg SQ daily (WT < 150 kg, CrCl > 30 mL/min) *Enoxaparin/Lovenox 30 mg SQ daily (WT < 150 kg, CrCl > 10-29 mL/min) *Enoxaparin/Lovenox 30 mg SQ BID (WT < 150 kg, CrCl > 30 mL/min) AND *Sequential Compression Device (SCD) Assessment and Plan - Plan A/P - sepsis ( leukocytosis/ tachycardia) due to pneumonia; continue with IV antibiotics and follow the cultures. -pneumonia/ right pleural effusion; Abx as noted above- follow the cultures- neb treatments. check echo and consult pulmonary. -abdominal distention/ ascites; check sonogram of the liver- -fall/ generalized weakness; consult PT. -diabetes mellitus; start on accu-check with SSI -renal insufficiency- chronic; will monitor. -history of leukemia; f/u as outpatient. -DVT prophylaxis with subq heparin Discussed Condition With: ER physician and the patient. Discharge Planning: pending clinical course/PT evaluation.
[2018-06-25] MEDS ORDERED: Dextrose 50% in Water 50 ML Vial IV.PUSH PRN (11:36)
--- NOTE | 2018-06-25 11:42 | US ---
EXAM DATE: 06/25/2018 11:38 AM EST AGE/SEX: 72 years / Female INDICATIONS: Ascites. Abdominal distention. CLINICAL DATA: This is the patient's initial encounter. Patient reports that signs and symptoms have been present for 1 day and indicates a pain score of 2/10. MEDICAL/SURGICAL HISTORY: . Asthma. Diabetes. Gout. Hypertension. Leukemia. . Left ankle. Thyroidectomy. COMPARISON: No prior exams available for comparison. FINDINGS: Masses: None Fluid Collections: Moderate free fluid is identified Other: Liver appears cirrhotic CONCLUSION: 1. Moderate ascites 2. Hepatic cirrhosis Electronically signed by: Mo Brooks MD 06/25/2018 11:41 AM EST
[2018-06-25] MEDS: Insulin NovoLOG Aspart Correctional Sugar Inj SQ SCH ×3 (12:11→20:25)
--- NOTE | 2018-06-25 15:16 | ECHRPT ---
Indication: Shortness of Breath CONCLUSIONS Normal left ventricular size. Wall thickness is normal. The left ventricular systolic function is normal with an estimated ejection fraction in the range of 55-60%. Trace mitral valve regurgitation. Mitral annular calcification is present. Not well visualized. Cannot rule out a small mobile echodensity on the left ventricular side of the anterior leaflet towards the left ventricular outflow tract in parasternal views. Clinical correlation recom mended There is trace tricuspid valve regurgitation. The estimated pulmonary arterial pressure is 38 mmHg. The pulmonary valve is not well visualized. There is a small pericardial effusion present. BP: / HR: Rhythm: MEASUREMENTS (Male / Female) Normal Values Technical Quality:Fair 2D ECHO LV Diastolic Diameter PLAX 3.7 cm 4.2 - 5.9 / 3.9 - 5.3 cm LV Systolic Diameter PLAX 2.6 cm IVS Diastolic Thickness 0.8 cm 0.6 - 1.0 / 0.6 - 0.9 cm LVPW Diastolic Thickness 0.9 cm 0.6 - 1.0 / 0.6 - 0.9 cm LV Relative Wall Thickness 0.5 RV Internal Dim ED PLAX 3.2 cm LVOT Diameter 1.9 cm Aortic Root Diameter 2.7 cm LA Systolic Diameter LX 3.2 cm 3.0 - 4.0 / 2.7 - 3.8 cm DOPPLER AV Peak Velocity 159.0 cm/s AV Peak Gradient 10.1 mmHg LVOT Peak Velocity 85.0 cm/s LVOT Peak Gradient 2.9 mmHg AV Area Cont Eq pk 1.5 cm Mitral E Point Velocity 96.0 cm/s Mitral A Point Velocity 140.0 cm/s Mitral E to A Ratio 0.7 LV E' Lateral Velocity 9.3 cm/s Mitral E to LV E' Lateral Ratio 10.4 LV E' Septal Velocity 9.6 cm/s Mitral E to LV E' Septal Ratio 10.1 TR Peak Velocity 266.0 cm/s TR Peak Gradient 28.3 mmHg Right Atrial Pressure 10.0 mmHg Pulmonary Artery Systolic Pressu 38.3 mmHg Right Ventricular Systolic Press 38.3 mmHg PV Peak Velocity 119.0 cm/s PV Peak Gradient 5.7 mmHg FINDINGS LEFT VENTRICLE Normal left ventricular size. Wall thickness is normal. The left ventricular systolic function is normal with an estimated ejection fraction in the range of 55-60%. RIGHT VENTRICLE Normal right ventricular size and systolic function. LEFT ATRIUM The left atrial size is normal. RIGHT ATRIUM The right atrial size is normal. ATRIAL SEPTUM Normal atrial septal thickness without atrial level shunting by limited color doppler interrogation. AORTA The aortic root and proximal ascending aorta are normal in size on limited imaging. MITRAL VALVE Trace mitral valve regurgitation. Mitral annular calcification is present. Not well visualized. Cannot rule out a small mobile echodensity on the left ventricular side of the anterior leaflet towards the left ventricular outflow tract in parasternal views. AORTIC VALVE Trileaflet aortic valve. No aortic valve stenosis or regurgitation. TRICUSPID VALVE There is trace tricuspid valve regurgitation. The estimated pulmonary arterial pressure is 38 mmHg. PULMONARY VALVE The pulmonary valve is not well visualized. VESSELS The inferior vena cava is normal in size. PERICARDIUM There is a small pericardial effusion present. Vikram Quick MD, FACC (Electronically Signed) Final Date:25 June 2018 15:15
--- NOTE | 2018-06-25 15:22 | P.CONGI ---
History of Present Illness Consult date: 06/25/18 Consult reason: Cirrhosis Chief complaint: RML PNA, Hypoxic Respiratory Failure History of Present Illness: This is a 72-year-old obese female who had been in her usual state of health up until the past 3 months she noticed her abdomen beginning to become distended and noted some diffuse abdominal discomfort which has continued to worsen over this period of time patient came into the hospital on 06/25/2018 with shortness of breath and was getting to the point that she could hardly walk. She also notes that she is been sleeping on pillows and has noted some generalized weakness, fatigue, and low-grade fever off and on, nausea, no vomiting. Patient denies any previous history of any liver disease notes EGD and colonoscopy done years ago unknown timing or event but thinks it may have been with the [facility]. Patient is a poor historian. Patient denies any rectal bleeding or hematemesis but has noted increased lower extremity edema also worsening over the past 2-3 months. Gastroenterology has been consulted to assist in this patient's care and control of her symptoms. Ultrasound done this admission did note moderate ascites and cirrhotic liver. Chest x-ray showed small to moderate pleural effusions. Labs reviewed which shows a hemoglobin 11.6, WBC 20.7, PT/INR 1.1, bilirubin 0.8, AST 41 mildly elevated and ALT 21, alkaline phosphatase 211. Patient notes only minimal social alcohol intake not even on a monthly basis and no previous history of tobacco use. <Nehal Ivey - Last Filed: 06/25/18 15:25> Review of Systems All other systems reviewed negative except as stated in HPI <Nehal Ivey - Last Filed: 06/25/18 15:25> PMFSH - History History Provided By: Patient - Medical History Medical History: Medical History (Last Reviewed 06/25/18 @ 11:27 by Denise Carr MD) Asthma Diabetes Gout Hypertension Leukemia - Surgical History Surgical History: Surgical History (Last Reviewed 06/25/18 @ 11:27 by Denise Carr MD) H/O foot surgery H/O thyroidectomy - Family History Family History: Family History (Last Updated 06/25/18 @ 11:27 by Denise Carr MD) Other No pertinent family history - Tobacco History Second Hand Smoke Exposure: No Smoking Status: Never smoker - Alcohol History How Often Do You Have a Drink Containing Alcohol: Monthly or less - Substance Use History Substance History: No History of Abuse - Travel History Recent Travel in the [place] Within the Last 8 Weeks: No Recent Travel Out of the Country Within the Last 8 Weeks: No - Immunization History Tetanus Immunization: Unsure Hx Influenza Vaccine This Season: Yes <Nehal Ivey - Last Filed: 06/25/18 15:25> - Medical History Medical History: Medical History (Last Reviewed 06/25/18 @ 11:27 by Denise Carr MD) Asthma Diabetes Gout Hypertension Leukemia - Surgical History Surgical History: Surgical History (Last Reviewed 06/25/18 @ 11:27 by Denise Carr MD) H/O foot surgery H/O thyroidectomy - Family History Family History: Family History (Last Updated 06/25/18 @ 11:27 by Denise Carr MD) Other No pertinent family history <Dina Garza - Last Filed: 06/25/18 18:49> Medications and Allergies Active Medications: Active Medications Albuterol (Albuterol Neb (Prn)) 1.25 mg NEB Q2HR NEB PRN PRN Reason: sob Dextrose (D50w Vial) 50 ml IV.PUSH UNSCH PRN PRN Reason: PER HYPOGLYCEMIA PROTOCOL Furosemide (Lasix Inj) 40 mg IV.PUSH DAILY SHILPI Last Admin: 06/25/18 13:57 Dose: 40 mg Glucagon (Glucagon Inj) 1 mg OTHER PRN PRN PRN Reason: for Hypoglycemia Protocol Heparin Sodium (Porcine) (Heparin Inj) 5,000 units SQ Q12HR SHILPI Ceftriaxone Sodium 1,000 mg/ (Sodium Chloride) 100 mls @ 200 mls/hr IV.SIG Q24H SHILPI Azithromycin 500 mg/ Sodium (Chloride) 250 mls @ 250 mls/hr IV.SIG ONCE ONE Stop: 06/26/18 09:59 Insulin Aspart (Novolog Insulin Correctional Sugar Inj) 0 unit SQ ACHS SHILPI; Protocol Last Admin: 06/25/18 12:11 Dose: Not Given <Nehal Ivey - Last Filed: 06/25/18 15:25> Active Medications: Active Medications Albuterol (Albuterol Neb (Prn)) 1.25 mg NEB Q2HR NEB PRN PRN Reason: sob Dextrose (D50w Vial) 50 ml IV.PUSH UNSCH PRN PRN Reason: PER HYPOGLYCEMIA PROTOCOL Furosemide (Lasix Inj) 40 mg IV.PUSH DAILY SHILPI Last Admin: 06/25/18 13:57 Dose: 40 mg Glucagon (Glucagon Inj) 1 mg OTHER PRN PRN PRN Reason: for Hypoglycemia Protocol Heparin Sodium (Porcine) (Heparin Inj) 5,000 units SQ Q12HR SHILPI Ceftriaxone Sodium 1,000 mg/ (Sodium Chloride) 100 mls @ 200 mls/hr IV.SIG Q24H SHILPI Azithromycin 500 mg/ Sodium (Chloride) 250 mls @ 250 mls/hr IV.SIG ONCE ONE Stop: 06/26/18 09:59 Insulin Aspart (Novolog Insulin Correctional Sugar Inj) 0 unit SQ ACHS SHILPI; Protocol Last Admin: 06/25/18 16:49 Dose: 1 unit Nadolol (Corgard) 20 mg PO DAILY SHILPI Pantoprazole Sodium (Protonix) 40 mg PO DAILY SHILPI Spironolactone (Aldactone) 100 mg PO DAILY [facility] <Dina Garza - Last Filed: 06/25/18 18:49> Allergies Allergy/AdvReac Type Severity Reaction Status Date / Time No Known Allergies Allergy Verified 06/25/18 05:25 Home Medications Medication Instructions Recorded Confirmed Type Multi Vitamin PO DAILY 06/25/18 History allopurinol PO DAILY 06/25/18 History glipizide PO DAILY 06/25/18 History levothyroxine 300 mcg PO DAILY 06/25/18 06/25/18 History Exam Vital signs: Vital Signs 06/25/18 05:16 06/25/18 06:47 06/25/18 10:54 Temperature 98.7 F 98.0 F Pulse Rate 103 H 99 H Respiratory Rate 20 22 Blood Pressure 133/82 139/73 Pulse Oximetry 96 95 98 06/25/18 12:00 Temperature 98.4 F Pulse Rate 105 H Respiratory Rate 18 Blood Pressure 146/70 H Pulse Oximetry 95 Intake & Output 06/24/18 06/25/18 06/25/18 18:59 06:59 18:59 Intake Total 350 / 350 Balance 350 / 350 Weight 81.647 kg 81.647 kg Intake: IV 350 / 350 Azithromycin Inj 500 MG In NS 250 / 250 Inj 250 ML @ 250 mls/hr IV.SIG ONCE ONE Rx#:[id number] Rocephin Inj 1,000 MG In NS Inj 100 / 100 100 ML @ 200 mls/hr IV.SIG ONCE ONE Rx#:[id number] Other: Weight On Admission 81.647 kg - Constitutional moderate distress, obese, cachectic, disheveled (Poor historian), cooperative - Routine HEENT Exam Head: Present: normocephalic ENT: Present: mucous membranes dry - Routine Respiratory Exam Present: decreased breath sounds, diminished air movement - Routine Cardiovascular Exam Present: S1, S2 - Routine Abdominal Exam Present: tenderness (Generalized, more so now in the mid upper abdomen), distended - Routine Skin Exam Present: pallor <Nehal Ivey - Last Filed: 06/25/18 15:25> Vital signs: Vital Signs 06/25/18 05:16 06/25/18 06:47 06/25/18 10:54 Temperature 98.7 F 98.0 F Pulse Rate 103 H 99 H Respiratory Rate 20 22 Blood Pressure 133/82 139/73 Pulse Oximetry 96 95 98 06/25/18 12:00 06/25/18 16:00 Temperature 98.4 F 98.3 F Pulse Rate 105 H 103 H Respiratory Rate 18 19 Blood Pressure 146/70 H 131/79 Pulse Oximetry 95 96 Intake & Output 06/24/18 06/25/18 06/25/18 18:59 06:59 18:59 Intake Total 800 / 800 Output Total 350 / 350 Balance 450 / 450 Weight 81.647 kg 81.647 kg Intake: IV 350 / 350 Azithromycin Inj 500 MG In NS 250 / 250 Inj 250 ML @ 250 mls/hr IV.SIG ONCE ONE Rx#:[id number] Rocephin Inj 1,000 MG In NS Inj 100 / 100 100 ML @ 200 mls/hr IV.SIG ONCE ONE Rx#:[id number] Oral 450 / 450 Output: Urine 350 / 350 Other: Date of Last Bowel Movement 06/25/18 # Bowel Movements 1 Weight On Admission 81.647 kg <Dina Garza - Last Filed: 06/25/18 18:49> Results - Labs CBC & Chem 7: 06/25/18 07:15 06/25/18 07:15 Labs: Laboratory Results - last 24 hr 06/25/18 06/25/18 06/25/18 07:15 07:15 07:15 WBC 20.7 H RBC 3.81 L Hgb 11.6 Hct 35.1 MCV 92.3 MCH 30.6 MCHC 33.1 RDW 15.7 Plt Count 221 MPV 9.1 Prelim Diff (Auto) Slide review pending Neut % (Auto) 32.4 Lymph % (Auto) 60.8 H [place] % (Auto) 4.4 Eos % (Auto) 1.8 Baso % (Auto) 0.6 Neut # (Auto) 6.7 Lymph # (Auto) 12.6 H [place] # (Auto) 0.9 Eos # (Auto) 0.4 Baso # (Auto) 0.1 WBC Differential Manual diff final Seg Neuts % (Manual) 37 Lymphocytes % (Manual) 59 H Monocytes % (Manual) 3 Eosinophils % (Manual) 1 Abs Neuts (Manual) 7.7 Differential Comment . Smudge Cells Present H Platelet Estimate Normal Platelet Morphology Normal PT INR Puncture Site Patient Temperature O2 Saturation ABG pH ABG pCO2 ABG pO2 ABG HCO3 ABG O2 Content ABG Base Excess ABG Methemoglobin [place] Test Hemoglobin Carboxyhemoglobin Inspired O2 Critical Value Sodium 141 Potassium 4.0 Chloride 106 Carbon Dioxide 25.8 Anion Gap 9 BUN 43 H Creatinine 2.75 H Estimated GFR 17 L POC Glucose Random Glucose 184 H Calcium 8.0 L Total Bilirubin 0.8 AST 41 H ALT 21 Alkaline Phosphatase 211 H Troponin I Less than 0.02 L Total Protein 7.0 Albumin 2.5 L Beta HCG, Qual Less than 1.0 Blood Type O Positive Blood Type Recheck Required Antibody Screen Negative 06/25/18 06/25/18 06/25/18 07:15 07:57 12:08 WBC RBC Hgb Hct MCV MCH MCHC RDW Plt Count MPV Prelim Diff (Auto) Neut % (Auto) Lymph % (Auto) [place] % (Auto) Eos % (Auto) Baso % (Auto) Neut # (Auto) Lymph # (Auto) [place] # (Auto) Eos # (Auto) Baso # (Auto) WBC Differential Seg Neuts % (Manual) Lymphocytes % (Manual) Monocytes % (Manual) Eosinophils % (Manual) Abs Neuts (Manual) Differential Comment Smudge Cells Platelet Estimate Platelet Morphology PT 11.4 INR 1.1 Puncture Site Left radial Patient Temperature 98.6 O2 Saturation 90 ABG pH 7.44 H ABG pCO2 37 L ABG pO2 60 L ABG HCO3 25 ABG O2 Content 13.5 ABG Base Excess 1.1 ABG Methemoglobin 0.4 [place]es Test Present Hemoglobin 10.7 L Carboxyhemoglobin 1.6 Inspired O2 21 Critical Value No Sodium Potassium Chloride Carbon Dioxide Anion Gap BUN Creatinine Estimated GFR POC Glucose 147 H Random Glucose Calcium Total Bilirubin AST ALT Alkaline Phosphatase Troponin I Total Protein Albumin Beta HCG, Qual Blood Type Blood Type Recheck Antibody Screen - Imaging Impressions Abdomen Ultrasound 06/25/18 00:00 CONCLUSION: 1. Moderate ascites 2. Hepatic cirrhosis Chest X-Ray 06/25/18 06:47 CONCLUSION: Right mid lung and basilar density characteristic of a small to moderate pleural effusion with underlying airspace disease. Head CT 06/25/18 06:47 CONCLUSION: 1. Stable evaluation of the head. 2. No evidence of acute infarct, hemorrhage, mass or edema. . <Nehal Ivey - Last Filed: 06/25/18 15:25> - Labs CBC & Chem 7: 06/25/18 07:15 06/25/18 07:15 Labs: Laboratory Results - last 24 hr 06/25/18 06/25/18 06/25/18 07:15 07:15 07:15 WBC 20.7 H RBC 3.81 L Hgb 11.6 Hct 35.1 MCV 92.3 MCH 30.6 MCHC 33.1 RDW 15.7 Plt Count 221 MPV 9.1 Prelim Diff (Auto) Slide review pending Neut % (Auto) 32.4 Lymph % (Auto) 60.8 H [place] % (Auto) 4.4 Eos % (Auto) 1.8 Baso % (Auto) 0.6 Neut # (Auto) 6.7 Lymph # (Auto) 12.6 H [place] # (Auto) 0.9 Eos # (Auto) 0.4 Baso # (Auto) 0.1 WBC Differential Manual diff final Seg Neuts % (Manual) 37 Lymphocytes % (Manual) 59 H Monocytes % (Manual) 3 Eosinophils % (Manual) 1 Abs Neuts (Manual) 7.7 Differential Comment . Smudge Cells Present H Platelet Estimate Normal Platelet Morphology Normal ESR PT INR Puncture Site Patient Temperature O2 Saturation ABG pH ABG pCO2 ABG pO2 ABG HCO3 ABG O2 Content ABG Base Excess ABG Methemoglobin [place]es Test Hemoglobin Carboxyhemoglobin Inspired O2 Critical Value Sodium 141 Potassium 4.0 Chloride 106 Carbon Dioxide 25.8 Anion Gap 9 BUN 43 H Creatinine 2.75 H Estimated GFR 17 L POC Glucose Random Glucose 184 H Calcium 8.0 L Iron TIBC % Saturation Ferritin Total Bilirubin 0.8 Direct Bilirubin Indirect Bilirubin AST 41 H ALT 21 Alkaline Phosphatase 211 H Ammonia Troponin I Less than 0.02 L Total Protein 7.0 Albumin 2.5 L Tumor Marker AFP Beta HCG, Qual Less than 1.0 Blood Type O Positive Blood Type Recheck Required Antibody Screen Negative 06/25/18 06/25/18 06/25/18 07:15 07:15 07:57 WBC RBC Hgb Hct MCV MCH MCHC RDW Plt Count MPV Prelim Diff (Auto) Neut % (Auto) Lymph % (Auto) [place] % (Auto) Eos % (Auto) Baso % (Auto) Neut # (Auto) Lymph # (Auto) [place] # (Auto) Eos # (Auto) Baso # (Auto) WBC Differential Seg Neuts % (Manual) Lymphocytes % (Manual) Monocytes % (Manual) Eosinophils % (Manual) Abs Neuts (Manual) Differential Comment Smudge Cells Platelet Estimate Platelet Morphology ESR PT 11.4 INR 1.1 Puncture Site Left radial Patient Temperature 98.6 O2 Saturation 90 ABG pH 7.44 H ABG pCO2 37 L ABG pO2 60 L ABG HCO3 25 ABG O2 Content 13.5 ABG Base Excess 1.1 ABG Methemoglobin 0.4 Ulysses Test Present Hemoglobin 10.7 L Carboxyhemoglobin 1.6 Inspired O2 21 Critical Value No Sodium Potassium Chloride Carbon Dioxide Anion Gap BUN Creatinine Estimated GFR POC Glucose Random Glucose Calcium Iron 41 L TIBC 206 L % Saturation 19.9 L Ferritin 307 H Total Bilirubin 0.8 Direct Bilirubin 0.3 H Indirect Bilirubin 0.5 AST 42 H ALT 21 Alkaline Phosphatase 208 H Ammonia Troponin I Total Protein 7.0 Albumin 2.6 L Tumor Marker AFP 1.8 Beta HCG, Qual Blood Type Blood Type Recheck Antibody Screen 06/25/18 06/25/18 06/25/18 12:08 16:34 16:42 WBC RBC Hgb Hct MCV MCH MCHC RDW Plt Count MPV Prelim Diff (Auto) Neut % (Auto) Lymph % (Auto) [place] % (Auto) Eos % (Auto) Baso % (Auto) Neut # (Auto) Lymph # (Auto) [place] # (Auto) Eos # (Auto) Baso # (Auto) WBC Differential Seg Neuts % (Manual) Lymphocytes % (Manual) Monocytes % (Manual) Eosinophils % (Manual) Abs Neuts (Manual) Differential Comment Smudge Cells Platelet Estimate Platelet Morphology ESR PT INR Puncture Site Patient Temperature O2 Saturation ABG pH ABG pCO2 ABG pO2 ABG HCO3 ABG O2 Content ABG Base Excess ABG Methemoglobin [place] Test Hemoglobin Carboxyhemoglobin Inspired O2 Critical Value Sodium Potassium Chloride Carbon Dioxide Anion Gap BUN Creatinine Estimated GFR POC Glucose 147 H 155 H Random Glucose Calcium Iron TIBC % Saturation Ferritin Total Bilirubin Direct Bilirubin Indirect Bilirubin AST ALT Alkaline Phosphatase Ammonia 17 Troponin I Total Protein Albumin Tumor Marker AFP Beta HCG, Qual Blood Type Blood Type Recheck Antibody Screen 06/25/18 16:42 WBC RBC Hgb Hct MCV MCH MCHC RDW Plt Count MPV Prelim Diff (Auto) Neut % (Auto) Lymph % (Auto) [place] % (Auto) Eos % (Auto) Baso % (Auto) Neut # (Auto) Lymph # (Auto) [place] # (Auto) Eos # (Auto) Baso # (Auto) WBC Differential Seg Neuts % (Manual) Lymphocytes % (Manual) Monocytes % (Manual) Eosinophils % (Manual) Abs Neuts (Manual) Differential Comment Smudge Cells Platelet Estimate Platelet Morphology ESR 58 H PT INR Puncture Site Patient Temperature O2 Saturation ABG pH ABG pCO2 ABG pO2 ABG HCO3 ABG O2 Content ABG Base Excess ABG Methemoglobin [place] Test Hemoglobin Carboxyhemoglobin Inspired O2 Critical Value Sodium Potassium Chloride Carbon Dioxide Anion Gap BUN Creatinine Estimated GFR POC Glucose Random Glucose Calcium Iron TIBC % Saturation Ferritin Total Bilirubin Direct Bilirubin Indirect Bilirubin AST ALT Alkaline Phosphatase Ammonia Troponin I Total Protein Albumin Tumor Marker AFP Beta HCG, Qual Blood Type Blood Type Recheck Antibody Screen - Imaging Impressions Abdomen Ultrasound 06/25/18 00:00 CONCLUSION: 1. Moderate ascites 2. Hepatic cirrhosis Chest X-Ray 06/25/18 06:47 CONCLUSION: Right mid lung and basilar density characteristic of a small to moderate pleural effusion with underlying airspace disease. Head CT 06/25/18 06:47 CONCLUSION: 1. Stable evaluation of the head. 2. No evidence of acute infarct, hemorrhage, mass or edema. . <Dina Garza - Last Filed: 06/25/18 18:49> Assessment and Plan - Plan This is a 72-year-old obese female who had been in her usual state of health up until the past 3 months she noticed her abdomen beginning to become distended and noted some diffuse abdominal discomfort which has continued to worsen over this period of time patient came into the hospital on 06/25/2018 with shortness of breath and was getting to the point that she could hardly walk. She also notes that she is been sleeping on pillows and has noted some generalized weakness, fatigue, and low-grade fever off and on, nausea and no vomiting. Patient denies any previous history of any liver disease notes EGD and colonoscopy done years ago unknown timing or event but thinks it may have been with the [facility]. Patient is a poor historian. Patient denies any rectal bleeding or hematemesis but has noted increased lower extremity edema also worsening over the past 2-3 months. Gastroenterology has been consulted to assist in this patient's care and control of her symptoms. Ultrasound done this admission did note moderate ascites and cirrhotic liver. Chest x-ray showed small to moderate pleural effusions. Labs reviewed which shows a hemoglobin 11.6, WBC 20.7, PT/INR 1.1, bilirubin 0.8, AST 41 mildly elevated and ALT 21, alkaline phosphatase 211. Patient notes only minimal social alcohol intake not even on a monthly basis and no previous history of tobacco use. Liver cirrhosis, unknown to patient so this appears to be a new diagnosis. Patient will need liver workup and AFP and CA-[id number] to evaluate for any metastasis. Liver ultrasound does show moderate ascites and cirrhotic liver Transaminitis mild AST 41 normal bilirubin and normal ALT, alkaline phosphatase 211. Minimal EtOH only on occasional rare social living Abdominal pain and distention probably related to #1. Recommend the need to consider paracentesis per IR, possible Wednesday Nausea but no vomiting Plan Diet per attending Monitor labs, liver workup has been initiated including AFP and CA 199 to rule out for any metastasis Consider CT scan if warranted Agree with Lasix, Start spironolactone, Nadolol, Start Protonix 40 mg daily Bowel regimen as needed Consider IR for paracentesis, and fluid evaluation, diagnostic Supportive care Further recommendations to follow Patient was seen per myself and Dr. Garza, note was written on her behalf <Nehal Ivey - Last Filed: 06/25/18 15:25> - Attending Attestation seen, examined agree with above ct abd/pelvis diagnostic and therapeutic paracentesis -send fluid for tp, albumin, cytology, total cells with differential consider echocardiogram based on results <Dina Garza - Last Filed: 06/25/18 18:49>
[2018-06-25 16:02] LABS: Albumin 2.6 g/dL (3.4-5.0)
[2018-06-25 16:05] LABS: % Iron Saturation 19.9 % (20-50); Alpha Fetoprotein Tumor Marker 1.8 ng/mL (0.5-8.0)
[2018-06-25] MEDS ORDERED: Diatrizoate Meglum/Diatrizoate Sod Liq 9 ML UDC PO ONE (18:52)
[2018-06-25 19:26] LABS: Hepatitis A IgM Antibody Nonreactive (Nonreactive); Hepatitits B Surface Antigen Nonreactive (Nonreactive)
--- NOTE | 2018-06-25 19:31 | XR ---
EXAM DATE: 06/25/2018 7:27 PM EST AGE/SEX: 72 years / Female INDICATIONS: Post right sided thoracentesis, possible pneumothorax. CLINICAL DATA: This is the patient's subsequent encounter. Patient reports that signs and symptoms h ave been present for 1 day and indicates a pain score of 0/10. MEDICAL/SURGICAL HISTORY: Asthma. Diabetes. Hypertension. Leukemia. Gout. Thyroidectomy. COMPARISON: [facility] [place], CHEST 1V SINGLE AP, 06/25/2018. . FINDINGS: A single frontal expiratory view of the chest was performed. The lungs are symmetrically aerated and clear. No evidence of pneumothorax. Mediastinal structures are in the midline. There is been succe ssful drainage of the right effusion. CONCLUSION: No pneumothorax following right thoracentesis. Electronically signed by: Higinio Bullard MD 06/25/2018 7:30 PM EST
--- NOTE | 2018-06-25 19:46 | MB ---
cc: Johan Wilkerson MD DATE: 06/25/2018 REQUESTING PHYSICIAN: Cornel Carr MD. REASON FOR CONSULTATION: Evaluate for pleural effusion. HISTORY OF PRESENT ILLNESS: Ms. Lima is a pleasant 72-year-old female with a history of asthma and diabetes mellitus. The patient came to the hospital with shortness of breath. She fell from her waterbed about 1 week ago. She had a bump on the side of the head, which was hurting and her was concerned. He called the EMS and the patient was brought to the hospital. The patient also complained of increasing shortness of breath for the last 2-3 months. Now, she can barely walk inside the house, makes the bed and gets short of breath. There have not been fever. There are no night sweats. No chest pain. The patient was evaluated in the hospital. She had a CT scan of the brain done, which shows no acute pathology. She had a chest x-ray done, which showed right mid lung basal density, [id number] pleural effusion with underlying pleural effusion of underlying infiltrate. Her CBC shows WBC count 20.7, hemoglobin 11.6, hematocrit 35.1, MCV 92, platelet count 221. Sodium 141, potassium 4.0, chloride 106, CO2 25, BUN 43, creatinine 2.75. Blood gas on room air pH 7.44, pCO2 of 37, pO2 60, bicarbonate 25, saturation 90%. PAST MEDICAL HISTORY: Significant for a history of bronchial asthma, hypertension, diabetes mellitus, history of leukemia, history of gout. MEDICATIONS: She is currently taking 1. Albuterol. 2. Atrovent nebulizer treatment. 3. Zithromax 500 mg. 4. Rocephin 1 gram a day. 1. Lasix 40 mg IV push. 2. Heparin 5000 every 12 hours. 3. Nadolol 20 mg a day. 4. Protonix 40 mg. 5. Spironolactone 100 mg a day. ALLERGIES: NO KNOWN DRUG ALLERGIES. SOCIAL HISTORY: She has no history of smoking, drinks rarely. She is retired. 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 FAMILY HISTORY: She is , has no children. REVIEW OF SYSTEMS: She walks only short distance, has swelling in the leg. No DVT or pulmonary embolism. No seizure, stroke, or epilepsy. No malignancy. PHYSICAL EXAMINATION: GENERAL: Obese, elderly female, mildly short of breath, not in acute distress. VITAL SIGNS: Blood pressure 146/70, heart rate 100, respiratory 18, temperature 98.4. HEENT: Pupils are equal and reactive. Oral mucosa and nasal mucosa normal. NECK: Supple. JVP not raised. CHEST: Symmetrical bilaterally. Has decreased breath sounds at the right base. Has basilar rales. CARDIOVASCULAR: S1, S2 normal. ABDOMEN: Soft, distended, nontender. Bowel sounds are present. EXTREMITIES: One plus pedal edema. CENTRAL NERVOUS SYSTEM: Alert and oriented x3. No focal deficit. IMPRESSION: 1. Right lung infiltrate. 2. Right pleural effusion. 3. Dyspnea. 4. Diabetes mellitus. 5. Hypertension. 6. Renal insufficiency and chronic kidney disease. PLAN: I discussed with the patient. We will continue with antibiotic Rocephin and Zithromax. Continue her aerosol treatment and supplemental oxygen. We will get an ultrasound of the chest. If she has significant pleural effusion, then we will proceed with thoracentesis. Further treatment pending the course in the hospital. Thank you, Dr. Carr, for this consult. MD JOSÉ Caldera/jaime/renzo , 03:33 PM , 03:43 PM MTDDominic
--- NOTE | 2018-06-25 21:15 | ECG ---
Date Performed: 06/25/2018 Time Performed: 05:37:19 PTAGE: 72 years EKG: SINUS TACHYCARDIA MARKED LEFT AXIS DEVIATION LOW QRS VOLTAGE IN PRECORDIAL LEADS POSSIBLE A NTERIOR MYOCARDIAL INFARCTION Compared to previous tracing, loss of voltage and loss of R wave in V2 likely due to lead placement, cannot exclude interval infarct ABNORMAL ECG NO PREVIOUS TRACING DOCTOR: Jamari Serrano Interpretating Date/Time 06/25/2018 21:12:56
[2018-06-25 21:29] LABS: Total Protein,Peritoneal Fluid 1.2 gm/dL
[2018-06-25 21:41] LABS: RBC,Peritoneal Fluid 35 /mm3 (0-0)
[2018-06-25 21:43] LABS: Mesothelial,Peritoneal Fluid 3 %; Neutrophils,Peritoneal Fluid 15 %
[2018-06-25 21:55] LABS: Total Protein,Pleural Fluid 2.2 gm/dL
[2018-06-25 22:07] LABS: RBC,Pleural Fluid 120 /mm3 (0-0)
[2018-06-25 22:11] LABS: Lymphocytes,Pleural Fluid 37 %; Monocytes,Pleural Fluid 22 %; Neutrophils,Pleural Fluid 4 %
--- NOTE | 2018-06-25 22:57 | CT ---
EXAM DATE: 06/25/2018 10:50 PM EST AGE/SEX: 72 years / Female INDICATIONS: Evaluate for ascites. CLINICAL DATA: This is the patient's initial encounter. Patient reports that signs and symptoms have been present for 1 day and indicates a pain score of 0/10. MEDICAL/SURGICAL HISTORY: Diabetes mellitus type II. Hypertension. Leukemia. Asthma None. RADIATION DOSE: 12.54 CTDI (mGy) COMPARISON: No prior exams available for comparison. TECHNIQUE: Multiple contiguous axial images were obtained through the abdomen. Images were obtained using multiple row detector helical technique. Using automated exposure control and adjustment of the mA and/or kV according to patient size, radiation dose was kept as low as reasonably achievable to o btain optimal diagnostic quality images. DICOM format image data is available electronically for rev iew and comparison. FINDINGS: Lower Lungs: There are bilateral pleural effusions being mild on the right and minimal on the left. T his increased density at the inferior medial right middle lobe and the inferior medial and posterior right lower lobe. There is a mild pericardial effusion seen anteriorly. Liver: The liver is diffusely abnormal with hypertrophy of the left lobe. The liver has a nodular lore face. These changes are likely from cirrhosis. Focal hepatic lesions are not seen. The gallbladder is unremarkable. Spleen: Homogeneous density without enlargement. Pancreas: Unremarkable without mass or calcification. Kidneys: Normal in size and shape. No evidence of mass or hydronephrosis. There is a tiny 1 to 2 mm nonobstructing stone seen at the superior left kidney. Adrenal Glands: Unremarkable. Aorta: The aorta and proximal iliac vessels are grossly unremarkable without aneurysmal dilation. A therosclerotic calcifications are seen. Bowel/Mesentery: There is a mild to moderate amount of ascites seen. The bowel loops are grossly unr emarkable. The cecum and sigmoid colon have a normal configuration. Abdominal Wall: Intact. Retroperitoneum: No evidence of adenopathy in the retrocrural, para-aortic, or deep pelvic regions. Bladder: Contours are smooth. Reproductive Organs: No abnormal masses or calcifications seen. Inguinal: The inguinal region is unremarkable without evidence of adenopathy. Bony Structures: There is degenerative change in the lower lumbar spine. Other: There is edema/anasarca seen throughout the subcutaneous tissues. CONCLUSION: 1. Suspected cirrhotic liver. 2. Mild to moderate amount of ascites. 3. Bilateral pleural effusions being mild on the right and minimal on the left. 4. Increased density at the inferior right middle lobe and right lower lobe likely related to consol idation or atelectasis. 5. Anasarca 6. Tiny nonobstructing left renal stone. Electronically signed by: Higinio Bullard MD 06/25/2018 10:56 PM EST
[2018-06-26 07:44] LABS: Baso # (Auto) 0.1 th/mm3 (0.0-0.2); Baso % (Auto) 0.8 % (0.0-2.0); Eos # (Auto) 0.5 th/mm3 (0.0-0.4); Eos % (Auto) 3.4 % (0.0-4.0); Hematocrit 33.5 % (35.0-46.0); Hemoglobin 10.9 gm/dL (11.6-15.3); Lymph # (Auto) 7.2 th/mm3 (1.0-4.8); Mean Corpuscular HGB Conc 32.6 % (32.0-36.0); Mean Corpuscular Hemoglobin 29.9 pg (27.0-34.0); Mean Corpuscular Volume 91.7 fL (80.0-100.0); Mean Platelet Volume 9.1 fL (7.0-11.0); Mono # (Auto) 0.6 th/mm3 (0.0-0.9); Mono % (Auto) 4.5 % (0.0-8.0); Neut # (Auto) 5.2 th/mm3 (1.8-7.7); Neut % (Auto) 38.3 % (16.0-70.0); Platelet Count 165 th/mm3 (150-450); Red Blood Count 3.65 mil/mm3 (4.00-5.30); Red Cell Distribution Width 14.9 % (11.6-17.2); White Blood Count 13.5 th/mm3 (4.0-11.0)
[2018-06-26 07:45] LABS: Calcium 7.7 mg/dL (8.5-10.1); Carbon Dioxide 26.7 meq/L (21.0-32.0); Potassium 4.6 meq/L (3.5-5.1)
[2018-06-26] MEDS: Insulin NovoLOG Aspart Correctional Sugar Inj SQ SCH ×4 (08:46→21:40)
[2018-06-26] MEDS: Nadolol 20 MG Tablet PO SCH (08:51)
[2018-06-26] MEDS ORDERED: Azithromycin Inj 500 MG in Sodium Chlor 0.9% Inj 250 ML IV.SIG ONE (09:00)
--- NOTE | 2018-06-26 10:53 | P.PNIM ---
Subjective Interval history: f/u; ascites/pleural effusion in no acute distress. but on two liters of oxygen via [place]. overall sob has improved. complaining of diarrhea- no abdominal pain or nausea/emesis. no fever. Physical Exam Vital signs: Vital Signs 06/25/18 10:54 06/25/18 12:00 06/25/18 16:00 Temperature 98.0 F 98.4 F 98.3 F Pulse Rate 99 H 105 H 103 H Respiratory Rate 22 18 19 Blood Pressure 139/73 146/70 H 131/79 Pulse Oximetry 98 95 96 06/25/18 20:00 06/26/18 00:00 06/26/18 04:00 Temperature 98.3 F 98.2 F 98.5 F Pulse Rate 105 H 99 H 94 H Respiratory Rate 22 20 20 Blood Pressure 146/67 H 136/68 119/63 Pulse Oximetry 94 L 94 L 93 L 06/26/18 08:00 Temperature 98.6 F Pulse Rate 97 H Respiratory Rate 18 Blood Pressure 150/70 H Pulse Oximetry 96 Intake & Output 06/25/18 06/26/18 06/26/18 18:59 06:59 18:59 Intake Total 800 / 800 350 / 350 Output Total 350 / 350 Balance 450 / 450 350 / 350 Weight 81.647 kg 81.4 kg Intake: IV 350 / 350 350 / 350 Azithromycin Inj 500 MG In NS 250 / 250 250 / 250 Inj 250 ML @ 250 mls/hr IV.SIG ONCE ONE Rx#:[id number] Rocephin Inj 1,000 MG In NS Inj 100 / 100 100 / 100 100 ML @ 200 mls/hr IV.SIG Q24H [facility] Rx#:[id number] Oral 450 / 450 Output: Urine 350 / 350 Other: # Voids 3 Date of Last Bowel Movement 06/25/18 06/25/18 # Bowel Movements 1 1 Weight On Admission 81.647 kg - Constitutional no acute distress - Routine Respiratory Exam Present: diminished air movement (right base.) - Routine Cardiovascular Exam Present: RRR - Routine Abdominal Exam Present: soft, distended (but with improved distrention.) - Routine Extremities Exam Comments: pedal edema seems to be improving. - Routine Neurological Exam Present: alert, oriented X3 Results - Labs CBC & Chem 7: 06/26/18 06:57 06/26/18 06:57 Laboratory Results - last 24 hr 06/25/18 06/25/18 06/25/18 07:15 12:08 16:34 WBC RBC Hgb Hct MCV MCH MCHC RDW Plt Count MPV Prelim Diff (Auto) Neut % (Auto) Lymph % (Auto) [place] % (Auto) Eos % (Auto) Baso % (Auto) Neut # (Auto) Lymph # (Auto) [place] # (Auto) Eos # (Auto) Baso # (Auto) Differential Comment ESR Sodium Potassium Chloride Carbon Dioxide Anion Gap BUN Creatinine Estimated GFR POC Glucose 147 H 155 H Random Glucose Calcium Iron 41 L TIBC 206 L % Saturation 19.9 L Ferritin 307 H Total Bilirubin 0.8 Direct Bilirubin 0.3 H Indirect Bilirubin 0.5 AST 42 H ALT 21 Alkaline Phosphatase 208 H Ammonia Total Protein 7.0 Albumin 2.6 L Tumor Marker AFP 1.8 CA 19-9 Antigen Peritoneal RBC Periton Nuc Cells Periton Neutrophils Periton Lymphocytes Peritoneal Monocytes Periton Mesothelial Periton Histiocytes Peritoneal Tot Protein Peritoneal Albumin Peritoneal LDH Peritoneal Glucose Peritoneal Amylase Pleural pH Pleural RBC Pleural Nuc Cells Pleural Neutrophils Pleural Lymphocytes Pleural Monocytes Pleural Plasma Cells Pleural Histocytes Pleural Mesothelial Pleural Other Cells Pleural Total Protein Pleural LDH Pleural Glucose Pleural Amylase Hepatitis A IgM Ab Hep Bs Antigen Hep B Core IgM Ab Hep C IgG Ab 06/25/18 06/25/18 06/25/18 16:42 16:42 16:42 WBC RBC Hgb Hct MCV MCH MCHC RDW Plt Count MPV Prelim Diff (Auto) Neut % (Auto) Lymph % (Auto) [place] % (Auto) Eos % (Auto) Baso % (Auto) Neut # (Auto) Lymph # (Auto) [place] # (Auto) Eos # (Auto) Baso # (Auto) Differential Comment ESR Sodium Potassium Chloride Carbon Dioxide Anion Gap BUN Creatinine Estimated GFR POC Glucose Random Glucose Calcium Iron TIBC % Saturation Ferritin Total Bilirubin Direct Bilirubin Indirect Bilirubin AST ALT Alkaline Phosphatase Ammonia 17 Total Protein Albumin Tumor Marker AFP CA 19-9 Antigen 15.2 Peritoneal RBC Periton Nuc Cells Periton Neutrophils Periton Lymphocytes Peritoneal Monocytes Periton Mesothelial Periton Histiocytes Peritoneal Tot Protein Peritoneal Albumin Peritoneal LDH Peritoneal Glucose Peritoneal Amylase Pleural pH Pleural RBC Pleural Nuc Cells Pleural Neutrophils Pleural Lymphocytes Pleural Monocytes Pleural Plasma Cells Pleural Histocytes Pleural Mesothelial Pleural Other Cells Pleural Total Protein Pleural LDH Pleural Glucose Pleural Amylase Hepatitis A IgM Ab Nonreactive Hep Bs Antigen Nonreactive Hep B Core IgM Ab Nonreactive Hep C IgG Ab Nonreactive 06/25/18 06/25/18 06/25/18 16:42 17:15 17:15 WBC RBC Hgb Hct MCV MCH MCHC RDW Plt Count MPV Prelim Diff (Auto) Neut % (Auto) Lymph % (Auto) [place] % (Auto) Eos % (Auto) Baso % (Auto) Neut # (Auto) Lymph # (Auto) [place] # (Auto) Eos # (Auto) Baso # (Auto) Differential Comment ESR 58 H Sodium Potassium Chloride Carbon Dioxide Anion Gap BUN Creatinine Estimated GFR POC Glucose Random Glucose Calcium Iron TIBC % Saturation Ferritin Total Bilirubin Direct Bilirubin Indirect Bilirubin AST ALT Alkaline Phosphatase Ammonia Total Protein Albumin Tumor Marker AFP CA 19-9 Antigen Peritoneal RBC Periton Nuc Cells Periton Neutrophils Periton Lymphocytes Peritoneal Monocytes Periton Mesothelial Periton Histiocytes Peritoneal Tot Protein Peritoneal Albumin Peritoneal LDH Peritoneal Glucose Peritoneal Amylase Pleural pH 7.5 Pleural RBC 120 H Pleural Nuc Cells 355 H Pleural Neutrophils 4 Pleural Lymphocytes 37 Pleural Monocytes 22 Pleural Plasma Cells 1 Pleural Histocytes 30 Pleural Mesothelial 4 Pleural Other Cells 2 Pleural Total Protein 2.2 Pleural LDH 116 Pleural Glucose 167 Pleural Amylase 60 Hepatitis A IgM Ab Hep Bs Antigen Hep B Core IgM Ab Hep C IgG Ab 06/25/18 06/25/18 06/25/18 17:45 17:45 20:24 WBC RBC Hgb Hct MCV MCH MCHC RDW Plt Count MPV Prelim Diff (Auto) Neut % (Auto) Lymph % (Auto) [place] % (Auto) Eos % (Auto) Baso % (Auto) Neut # (Auto) Lymph # (Auto) [place] # (Auto) Eos # (Auto) Baso # (Auto) Differential Comment ESR Sodium Potassium Chloride Carbon Dioxide Anion Gap BUN Creatinine Estimated GFR POC Glucose 127 H Random Glucose Calcium Iron TIBC % Saturation Ferritin Total Bilirubin Direct Bilirubin Indirect Bilirubin AST ALT Alkaline Phosphatase Ammonia Total Protein Albumin Tumor Marker AFP CA 19-9 Antigen Peritoneal RBC 35 H Periton Nuc Cells 90 H Periton Neutrophils 15 Periton Lymphocytes 31 Peritoneal Monocytes 29 Periton Mesothelial 3 Periton Histiocytes 22 Peritoneal Tot Protein 1.2 Peritoneal Albumin 0.6 Peritoneal LDH 70 Peritoneal Glucose 173 Peritoneal Amylase 45 Pleural pH Pleural RBC Pleural Nuc Cells Pleural Neutrophils Pleural Lymphocytes Pleural Monocytes Pleural Plasma Cells Pleural Histocytes Pleural Mesothelial Pleural Other Cells Pleural Total Protein Pleural LDH Pleural Glucose Pleural Amylase Hepatitis A IgM Ab Hep Bs Antigen Hep B Core IgM Ab Hep C IgG Ab 06/26/18 06/26/18 06:57 06:57 WBC 13.5 H RBC 3.65 L Hgb 10.9 L Hct 33.5 L MCV 91.7 MCH 29.9 MCHC 32.6 RDW 14.9 Plt Count 165 MPV 9.1 Prelim Diff (Auto) Slide review pending Neut % (Auto) 38.3 Lymph % (Auto) 53.0 H [place] % (Auto) 4.5 Eos % (Auto) 3.4 Baso % (Auto) 0.8 Neut # (Auto) 5.2 Lymph # (Auto) 7.2 H [place] # (Auto) 0.6 Eos # (Auto) 0.5 H Baso # (Auto) 0.1 Differential Comment . ESR Sodium 142 Potassium 4.6 Chloride 107 Carbon Dioxide 26.7 Anion Gap 8 BUN 41 H Creatinine 2.63 H Estimated GFR 18 L POC Glucose Random Glucose 141 H Calcium 7.7 L Iron TIBC % Saturation Ferritin Total Bilirubin Direct Bilirubin Indirect Bilirubin AST ALT Alkaline Phosphatase Ammonia Total Protein Albumin Tumor Marker AFP CA 19-9 Antigen Peritoneal RBC Periton Nuc Cells Periton Neutrophils Periton Lymphocytes Peritoneal Monocytes Periton Mesothelial Periton Histiocytes Peritoneal Tot Protein Peritoneal Albumin Peritoneal LDH Peritoneal Glucose Peritoneal Amylase Pleural pH Pleural RBC Pleural Nuc Cells Pleural Neutrophils Pleural Lymphocytes Pleural Monocytes Pleural Plasma Cells Pleural Histocytes Pleural Mesothelial Pleural Other Cells Pleural Total Protein Pleural LDH Pleural Glucose Pleural Amylase Hepatitis A IgM Ab Hep Bs Antigen Hep B Core IgM Ab Hep C IgG Ab - Imaging Impressions Abdomen Ultrasound 06/25/18 00:00 CONCLUSION: 1. Moderate ascites 2. Hepatic cirrhosis Abdomen/Pelvis CT 06/25/18 00:00 CONCLUSION: 1. Suspected cirrhotic liver. 2. Mild to moderate amount of ascites. 3. Bilateral pleural effusions being mild on the right and minimal on the left. 4. Increased density at the inferior right middle lobe and right lower lobe likely related to consolidation or atelectasis. 5. Anasarca 6. Tiny nonobstructing left renal stone. Chest X-Ray 06/25/18 00:00 CONCLUSION: No pneumothorax following right thoracentesis. Assessment and Plan - Plan A/P - sepsis ( leukocytosis/ tachycardia) due to pneumonia; continue with IV antibiotics and follow the cultures. -pneumonia/ right pleural effusion; Abx as noted above- follow the cultures- neb treatments. s/p thoracentesis- will follow the cultures- echo with EF 55%. pulmonary following. -abdominal distention/ ascites; s/p paracentesis- hepatitis panel negative- continue diuretics- GI consult appreciated. -fall/ generalized weakness; consulted PT. -diabetes mellitus; started on accu-check with SSI -renal insufficiency- chronic; will monitor. -history of leukemia; f/u as outpatient. -DVT prophylaxis with subq heparin Discharge Planning: pending clinical course.
[2018-06-26 12:50] LABS: Eosinophils 6 % (0-4); Monocytes 4 % (0-8)
[2018-06-26 12:51] LABS: Lymphocytes 53 % (9-44); Ovalocytes 1+; Platelet Estimate Normal (Normal); Platelet Morphology Normal (Normal); Smudge Cells Present
--- NOTE | 2018-06-26 13:30 | US ---
EXAM DATE: 06/25/2018 7:52 PM EST AGE/SEX: 72 years / Female INDICATIONS: Ascites. CLINICAL DATA: This is the patient's initial encounter. Patient reports that signs and symptoms have been present for 1 day and indicates a pain score of 0/10. MEDICAL/SURGICAL HISTORY: . Asthma. Diabetes. Gout. Hypertension. Leukemia. . Foot surgery . Thyroidectomy. COMPARISON: No prior exams available for comparison. FLUID: Total volume of 5700 cc of clear, yellow fluid was removed. Fluid was sent to lab for ordered studies . . . TECHNIQUE: Ultrasound guidance for abdominal paracentesis. Paracentesis. The risks, benefits, and alternatives to ultrasound guided paracentesis were explained to the patient in detail including the risk of bleeding and infection. Written and verbal informed consent was obt ained. With the patient on the ultrasound table, ultrasound imaging was used to select the most appropriate approach for paracentesis. Overlying skin was prepped and draped in the usual sterile fashion and wi th a local anesthetic, a dermatotomy was made with an 11 blade scalpel. A 6 [place] [id number]-[id number] ca theter was introduced into the peritoneal cavity and fluid was collected. Post procedure scanning reveals no hematoma or other complication. The patient did have a small cutan eous venous branch causing mild bleeding at the puncture site. A 2-0 silk suture utilizing a horizont al mattress stitch was utilized to gain hemostasis. The patient tolerated the procedure well and left the ultrasound suite in stable condition. FINDINGS: Adequate fluid for paracentesis. CONCLUSION: 1. Uncomplicated paracentesis. A suture was placed to gain hemostasis secondary to a small cutaneous venous bleed. This suture can be removed in 2-3 days. Electronically signed by: Caden Willard MD 06/26/2018 1:29 PM EST
--- NOTE | 2018-06-26 13:31 | US ---
EXAM DATE: 06/25/2018 8:05 PM EST AGE/SEX: 72 years / Female INDICATIONS: Pleural effusion. CLINICAL DATA: This is the patient's initial encounter. Patient reports that signs and symptoms have been present for 1 day and indicates a pain score of 0/10. MEDICAL/SURGICAL HISTORY: . Asthma. Diabetes. Gout. Hypertension. Leukemia . Foot surgery. Thyroidectomy. COMPARISON: None. MEASUREMENTS: Skin To Parietal Pleura:__2.6 cm Skin To Max Safe Depth:__6.9 cm Estimated Fluid Volume:__768 cc Fluid Composition:__simple FINDINGS: None. CONCLUSION: 1. Large right pleural effusion without appreciable loculation. Electronically signed by: Caden Willard MD 06/26/2018 1:30 PM EST
--- NOTE | 2018-06-26 13:32 | US ---
EXAM DATE: 06/25/2018 9:12 PM EST AGE/SEX: 72 years / Female INDICATIONS: Right pleural effusion. CLINICAL DATA: This is the patient's initial encounter. Patient reports that signs and symptoms have been present for 1 day and indicates a pain score of 2/10. MEDICAL/SURGICAL HISTORY: . Asthma. Diabetes. Gout. Hypertension. Leukemia. . Foot surgery . Thyroidectomy. COMPARISON: [facility] – [place], CHEST EXPIRATION ONLY, 06/25/2018. . FLUID: Total volume of 1200 cc of clear, yellow fluid was removed. Fluid was sent to lab for ordered studies. . . TECHNIQUE: Ultrasound guidance for thoracentesis. Thoracentesis. The risks, benefits, and alternatives to ultrasound guided thoracentesis were explained to the patien t in lay simple terms, including the risk of bleeding and infection. Written and verbal informed con sent was obtained. Appropriate area for right thoracentesis was marked under ultrasound guidance with the patient in the upright position. Overlying skin was prepped and draped in the usual sterile fashion and with local anesthetic, a dermatotomy was made with an 11 blade scalpel. A 6 [place] thoracentesis catheter was placed in the pleural space and fluid was removed. Catheter was then removed and a sterile dressing applied. There were no immediate complications. The patient tolerated the procedure well and the lef t the ultrasound suite in stable condition. Chest radiograph is to be obtained. FINDINGS: Adequate fluid for thoracentesis. CONCLUSION: 1. Uncomplicated right thoracentesis. Electronically signed by: Caden Willard MD 06/26/2018 1:31 PM EST
--- NOTE | 2018-06-26 15:36 | P.PNPL ---
Subjective Interval history: 72 YOWF with br asthma, DM, Rt lung infilt and Pl eff Breathing better C/O bloating in belly no Abd pain has diarrhoea Physical Exam Vital signs: Vital Signs 06/25/18 16:00 06/25/18 20:00 06/26/18 00:00 Temperature 98.3 F 98.3 F 98.2 F Pulse Rate 103 H 105 H 99 H Respiratory Rate 19 22 20 Blood Pressure 131/79 146/67 H 136/68 Pulse Oximetry 96 94 L 94 L 06/26/18 04:00 06/26/18 08:00 06/26/18 12:00 Temperature 98.5 F 98.6 F 98.9 F Pulse Rate 94 H 97 H 76 Respiratory Rate 20 18 17 Blood Pressure 119/63 150/70 H 99/58 L Pulse Oximetry 93 L 96 96 06/26/18 12:18 Temperature Pulse Rate Respiratory Rate Blood Pressure Pulse Oximetry 96 Intake & Output 06/25/18 06/26/18 06/26/18 18:59 06:59 18:59 Intake Total 800 / 800 350 / 350 Output Total 350 / 350 Balance 450 / 450 350 / 350 Weight 81.647 kg 81.4 kg Intake: IV 350 / 350 350 / 350 Azithromycin Inj 500 MG In NS 250 / 250 250 / 250 Inj 250 ML @ 250 mls/hr IV.SIG ONCE ONE Rx#:[id number] Rocephin Inj 1,000 MG In NS Inj 100 / 100 100 / 100 100 ML @ 200 mls/hr IV.SIG Q24H [facility] Rx#:[id number] Oral 450 / 450 Output: Urine 350 / 350 Other: # Voids 3 Date of Last Bowel Movement 06/25/18 06/25/18 06/26/18 # Bowel Movements 1 1 Weight On Admission 81.647 kg GENERAL: Elderly Wf, NAD SKIN: Warm and dry. HEAD: Normocephalic. EYES: No scleral icterus. No injection or drainage. NECK: Supple, trachea midline. No JVD or lymphadenopathy. CARDIOVASCULAR: Regular rate and rhythm without murmurs, gallops, or rubs. RESPIRATORY: Breath sounds equal bilaterally. No accessory muscle use. Decreased BS rt base GASTROINTESTINAL: Abdomen soft, non-tender, nondistended. MUSCULOSKELETAL: No cyanosis, or edema. BACK: Nontender without obvious deformity. No CVA tenderness. Assessment and Plan - Plan IMPRESSION: 1. Right lung infiltrate. 2. Right pleural effusion. 3. Dyspnea. 4. Diabetes mellitus. 5. Hypertension. 6. Renal insufficiency and chronic kidney disease. PLAN: Cont Abx Supplement 02 US guided Thoracentesis Aerosol nebs Heparin 5000IU SQ q 12 hrs DW pt and her at BS
[2018-06-27 07:27] LABS: Baso # (Auto) 0.1 th/mm3 (0.0-0.2); Baso % (Auto) 0.4 % (0.0-2.0); Eos # (Auto) 0.6 th/mm3 (0.0-0.4); Eos % (Auto) 2.7 % (0.0-4.0); Hematocrit 33.8 % (35.0-46.0); Hemoglobin 11.2 gm/dL (11.6-15.3); Lymph # (Auto) 14.1 th/mm3 (1.0-4.8); Lymph % (Auto) 64.1 % (9.0-44.0); Mean Corpuscular Hemoglobin 29.9 pg (27.0-34.0); Mean Corpuscular Volume 90.4 fL (80.0-100.0); Mean Platelet Volume 8.9 fL (7.0-11.0); Mono # (Auto) 0.9 th/mm3 (0.0-0.9); Mono % (Auto) 4.3 % (0.0-8.0); Neut # (Auto) 6.3 th/mm3 (1.8-7.7); Neut % (Auto) 28.5 % (16.0-70.0); Platelet Count 210 th/mm3 (150-450); Red Blood Count 3.74 mil/mm3 (4.00-5.30); Red Cell Distribution Width 14.9 % (11.6-17.2); White Blood Count 22.1 th/mm3 (4.0-11.0)
[2018-06-27 07:52] LABS: Calcium 7.5 mg/dL (8.5-10.1); Carbon Dioxide 26.4 meq/L (21.0-32.0); Potassium 4.4 meq/L (3.5-5.1)
[2018-06-27 08:39] LABS: Eosinophils 1 % (0-4); Lymphocytes 74 % (9-44); Monocytes 4 % (0-8)
[2018-06-27 08:40] LABS: Smudge Cells Present
[2018-06-27 08:41] LABS: Platelet Estimate Normal (Normal); Platelet Morphology Normal (Normal)
[2018-06-27] MEDS: Insulin NovoLOG Aspart Correctional Sugar Inj SQ SCH ×4 (08:44→21:14)
[2018-06-27] MEDS: Nadolol 20 MG Tablet PO SCH (08:46)
[2018-06-27 10:12] LABS: Mesothelial,Pleural Fluid 6 %
--- NOTE | 2018-06-27 14:06 | P.PNIM ---
Subjective Interval history: in no acute distress. afebrile. abdominal distention has got worse since yesterday. Physical Exam Vital signs: Last Vital Signs Temp 98.1 F 06/27/18 12:00 Pulse 62 06/27/18 12:00 Resp 18 06/27/18 12:00 BP 116/59 L 06/27/18 12:00 Pulse Ox 97 06/27/18 12:00 Intake & Output 06/25/18 06/26/18 06/27/18 06/28/18 06:59 06:59 06:59 06:59 Intake Total 800 / 800 1680 / 1680 100 / 100 Output Total 350 / 350 Balance 450 / 450 1680 / 1680 100 / 100 Weight 81.647 kg 81.4 kg 81 kg Constitutional no acute distress Routine Respiratory Exam Present CTA bilaterally Routine Cardiovascular Exam Present RRR Routine Abdominal Exam Present soft and distended Routine Extremities Exam Comments: bilateral pedal edema. Routine Neurological Exam Present alert and oriented X3 Results Labs CBC & Chem 7: 06/27/18 06:51 06/27/18 06:51 Labs: Microbiology 06/25/18 17:15 Fluid - Pleural fluid Gram Stain - Final 06/25/18 17:15 Fluid - Pleural fluid Body Fluid Culture - Preliminary No growth in 48 hours 06/25/18 17:45 Fluid - Peritoneal fluid Gram Stain - Final 06/25/18 17:45 Fluid - Peritoneal fluid Body Fluid Culture - Preliminary No growth in 48 hours 06/25/18 19:15 Fluid - Pleural fluid Fungal Smear - Final No fungal elements seen 06/25/18 17:45 Fluid - Peritoneal fluid Fungal Smear - Final No fungal elements seen Assessment and Plan Plan A/P - sepsis ( leukocytosis/ tachycardia) due to pneumonia; continue with IV antibiotics- cultures negative so far. -pneumonia/ right pleural effusion; Abx as noted above-cultures negative so far - neb treatments. s/p thoracentesis- cultures negative so far. echo with EF 55%. echo was d/w ;mobile density reported on the echo probably is not significant clinically. pulmonary following. -abdominal distention/ ascites; s/p paracentesis- hepatitis panel negative- continue diuretics- GI consult appreciated. will consider reconsulting IR for repeated paracentesis. -fall/ generalized weakness; consulted PT. -diabetes mellitus; started on accu-check with SSI -renal insufficiency- chronic; will monitor. -history of leukemia; f/u as outpatient. -DVT prophylaxis with subq heparin Discharge Planning: pending clinical course. Progress Note: Quality VTE Deep Vein Thrombosis/Pulmonary Embolism Present on Admission: No
[2018-06-27 15:57] LABS: Chol/HDL Ratio 4.75 Ratio; HDL Cholesterol 28.2 mg/dL (40.0-60.0)
--- NOTE | 2018-06-27 16:40 | P.PNPL ---
Subjective Interval history: 72 YOWF with br asthma, DM, Rt lung infilt and Pl eff Breathing better C/O bloating in belly no Abd pain has diarrhoea no fever Physical Exam Vital signs: Vital Signs 06/26/18 20:00 06/27/18 00:00 06/27/18 08:00 Temperature 98.5 F 97.6 F 98.5 F Pulse Rate 72 71 72 Respiratory Rate 16 18 18 Blood Pressure 98/54 L 102/55 L 123/67 Pulse Oximetry 96 96 96 06/27/18 10:05 06/27/18 12:00 Temperature 98.1 F Pulse Rate 62 Respiratory Rate 18 Blood Pressure 116/59 L Pulse Oximetry 96 97 Intake & Output 06/26/18 06/27/18 06/27/18 18:59 06:59 18:59 Intake Total 1100 / 1100 580 / 580 100 / 100 Balance 1100 / 1100 580 / 580 100 / 100 Weight 81 kg Intake: IV 350 / 350 100 / 100 Azithromycin Inj 500 MG In NS 250 / 250 Inj 250 ML @ 250 mls/hr IV.SIG ONCE ONE Rx#:[id number] Rocephin Inj 1,000 MG In NS Inj 100 / 100 100 / 100 100 ML @ 200 mls/hr IV.SIG Q24H [facility] Rx#:[id number] Oral 750 / 750 580 / 580 Other: # Voids 5 3 Date of Last Bowel Movement 06/26/18 06/26/18 06/27/18 # Bowel Movements 2 # Incontinent Bowel Movements 3 GENERAL: Elderly Wf,NAD SKIN: Warm and dry. HEAD: Normocephalic. EYES: No scleral icterus. No injection or drainage. NECK: Supple, trachea midline. No JVD or lymphadenopathy. CARDIOVASCULAR: Regular rate and rhythm without murmurs, gallops, or rubs. RESPIRATORY: Breath sounds equal bilaterally. No accessory muscle use. GASTROINTESTINAL: Abdomen soft, non-tender,distended. MUSCULOSKELETAL: No cyanosis, or edema. BACK: Nontender without obvious deformity. No CVA tenderness. Assessment and Plan - Plan IMPRESSION: 1. Right lung infiltrate. 2. Right pleural effusion. 3. Dyspnea. 4. Diabetes mellitus. 5. Hypertension. 6. Renal insufficiency and chronic kidney disease. PLAN: Cont Abx Supplement 02 Aerosol nebs Heparin 5000 IU SQ q 12 hrs
--- NOTE | 2018-06-27 16:45 | P.CONNP ---
<Des Arora - Last Filed: 06/27/18 17:16> History of Present Illness Reason for Consult: Acute on Chronic Kidney Disease Primary Care Provider: UNKNOWN Chief Complaint: shortness of breath History of Present Illness: Patient is a 72 year old female who came to the ED for SOB and weakness. Patient stated she was having repeated falls and SOB at home and she fell off her bed and hit her head so her called the fire department who brought her to [place]. Head CT was negative. Echo with EF 55%. Patient had a right thoracentesis with 1200 mL fluid removed. Patient had paracentesis with 5700 mL fluid removed. Prior medical history includes: CKD, Ashtma, Gout, HTN, DM, Leukemia. Patient states she has SOB with activity. Patient denies chest pain. Patient's abdomen is distended and tender to palpation. Patient stated she has had diarrhea everyday and it had been going on for several weeks. Patient reported her appetite has been poor since admission. Patient stated she has urine output but I don't see it documented. Patient stated she has had CKD for at least 4-6 years. She previously saw Dr. Vargas but stopped about 2 years ago due to insurance issues. She is not aware of what her baseline renal function is. [facility] - History History Provided By: Patient - Medical History Medical History: Medical History (Last Reviewed 06/25/18 @ 11:27 by Denise Carr MD) Asthma Diabetes Gout Hypertension Leukemia - Surgical History Surgical History: Surgical History (Last Reviewed 06/25/18 @ 11:27 by Denise Carr MD) H/O foot surgery H/O thyroidectomy - Family History Family History: Family History (Last Updated 06/25/18 @ 11:27 by Denise Carr MD) Other No pertinent family history - Tobacco History Second Hand Smoke Exposure: No Smoking Status: Never smoker - Alcohol History How Often Do You Have a Drink Containing Alcohol: Monthly or less - Substance Use History Substance History: No History of Abuse - Travel History Recent Travel in the [place] Within the Last 8 Weeks: No Recent Travel Out of the Country Within the Last 8 Weeks: No - Immunization History Tetanus Immunization: Unsure Hx Influenza Vaccine This Season: Yes Medications and Allergies Allergies Allergy/AdvReac Type Severity Reaction Status Date / Time No Known Allergies Allergy Verified 06/25/18 05:25 Home Medications Medication Instructions Recorded Confirmed Type Multi Vitamin PO DAILY 06/25/18 History allopurinol PO DAILY 06/25/18 History glipizide PO DAILY 06/25/18 History levothyroxine 300 mcg PO DAILY 06/25/18 06/25/18 History Active Medications: Active Medications Albuterol (Albuterol Neb (Prn)) 1.25 mg NEB Q2HR NEB PRN PRN Reason: sob Dextrose (D50w Vial) 50 ml IV.PUSH UNSCH PRN PRN Reason: PER HYPOGLYCEMIA PROTOCOL Furosemide (Lasix Inj) 80 mg IV.PUSH DAILY [facility] Glucagon (Glucagon Inj) 1 mg OTHER PRN PRN PRN Reason: for Hypoglycemia Protocol Heparin Sodium (Porcine) (Heparin Inj) 5,000 units SQ Q12HR [facility] Ceftriaxone Sodium 1,000 mg/ (Sodium Chloride) 100 mls @ 200 mls/hr IV.SIG Q24H [facility] Last Infusion: 06/27/18 09:15 Dose: Infused Insulin Aspart (Novolog Insulin Correctional Sugar Inj) 0 unit SQ ACHS [facility]; Protocol Last Admin: 06/27/18 11:04 Dose: Not Given Nadolol (Corgard) 20 mg PO DAILY [facility] Last Admin: 06/27/18 08:46 Dose: 20 mg Pantoprazole Sodium (Protonix) 40 mg PO DAILY [facility] Last Admin: 06/27/18 08:45 Dose: 40 mg Spironolactone (Aldactone) 200 mg PO DAILY [facility] Exam Vital signs: Vital Signs 06/26/18 20:00 06/27/18 00:00 06/27/18 08:00 Temperature 98.5 F 97.6 F 98.5 F Pulse Rate 72 71 72 Respiratory Rate 16 18 18 Blood Pressure 98/54 L 102/55 L 123/67 Pulse Oximetry 96 96 96 06/27/18 10:05 06/27/18 12:00 Temperature 98.1 F Pulse Rate 62 Respiratory Rate 18 Blood Pressure 116/59 L Pulse Oximetry 96 97 Intake & Output 06/26/18 06/27/18 06/27/18 18:59 06:59 18:59 Intake Total 1100 / 1100 580 / 580 100 / 100 Balance 1100 / 1100 580 / 580 100 / 100 Weight 81 kg Intake: IV 350 / 350 100 / 100 Azithromycin Inj 500 MG In NS 250 / 250 Inj 250 ML @ 250 mls/hr IV.SIG ONCE ONE Rx#:[id number] Rocephin Inj 1,000 MG In NS Inj 100 / 100 100 / 100 100 ML @ 200 mls/hr IV.SIG Q24H [facility] Rx#:[id number] Oral 750 / 750 580 / 580 Other: # Voids 5 3 Date of Last Bowel Movement 06/26/18 06/26/18 06/27/18 # Bowel Movements 2 # Incontinent Bowel Movements 3 - Constitutional no acute distress - Routine HEENT Exam Head: Present: normocephalic Eye: Present: EOMI, PERRL ENT: Present: mucous membranes moist - Routine Neck Exam Present: trachea midline. Absent: JVD, tracheal deviation - Routine Respiratory Exam Present: CTA bilaterally. Absent: accessory muscle use - Routine Cardiovascular Exam Present: RRR. Absent: murmur - Routine Abdominal Exam Present: soft, tenderness, distended - Routine Extremities Exam Present: edema Comments: Bilateral lower extremity edema. - Routine Skin Exam Present: intact - Routine Neurological Exam Present: alert, oriented X3 Results - Lab Results 06/27/18 06:51 06/27/18 06:51 Most recent lab results ABG pH 7.44 (7.380-7.420) H 06/25/18 07:57 ABG pCO2 37 mmHg (38-42) L 06/25/18 07:57 ABG pO2 60 mmHg (61-120) L 06/25/18 07:57 ABG HCO3 25 mmol/L (22-26) 06/25/18 07:57 Calcium 7.5 mg/dL (8.5-10.1) L 06/27/18 06:51 Assessment and Plan - Assessment (1) Acute on chronic kidney failure Code(s): N17.9 - Acute kidney failure, unspecified; N18.9 - Chronic kidney disease, unspecified Status: Acute Plan: Acute on Chronic Kidney Disease could be due to dehydration. Patient states she has had diarrhea and poor PO intake since being admitted to the hospital. Patient is not aware of baseline kidney function. Abdominal CT of kidneys was unremarkable. Ordered UA. Monitor urine output. Monitor fluid and electrolytes. Avoid Nephrotoxic agents. (2) Pneumonia Code(s): J18.9 - Pneumonia, unspecified organism Status: Acute Plan: Patient is on IV Ceftriaxone and Azithromycin. s/p thoracentesis- cultures negative so far. (3) Diabetes Code(s): E11.9 - Type 2 diabetes mellitus without complications Status: Acute Plan: Insulin coverage to maintain glucose levels between 140 and 180. (4) Abdominal distension Code(s): R14.0 - Abdominal distension (gaseous) Status: Acute Plan: s/p paracentesis. Hepatitis panel negative. GI consulted. Patient on IV Lasix and has been increased to 80mg. Aldactone to be started 06/28. <Papi Busby - Last Filed: 06/28/18 10:16> History of Present Illness Primary Care Provider: UNKNOWN [facility] - Medical History Medical History: Medical History (Last Reviewed 06/25/18 @ 11:27 by Denise Carr MD) Asthma Diabetes Gout Hypertension Leukemia - Surgical History Surgical History: Surgical History (Last Reviewed 06/25/18 @ 11:27 by Denise Carr MD) H/O foot surgery H/O thyroidectomy - Family History Family History: Family History (Last Updated 06/25/18 @ 11:27 by Denise Carr MD) Other No pertinent family history Medications and Allergies Active Medications: Active Medications Albuterol (Albuterol Neb (Prn)) 1.25 mg NEB Q2HR NEB PRN PRN Reason: sob Chlorhexidine Gluconate (Chlorhexidine 2% Cloth) 3 pack [employer] ONE Stop: 06/28/18 10:01 Dextrose (D50w Vial) 50 ml IV.PUSH UNSCH PRN PRN Reason: PER HYPOGLYCEMIA PROTOCOL Furosemide (Lasix Inj) 80 mg IV.PUSH DAILY [facility] Last Admin: 06/28/18 09:31 Dose: 80 mg Glucagon (Glucagon Inj) 1 mg OTHER PRN PRN PRN Reason: for Hypoglycemia Protocol Heparin Sodium (Porcine) (Heparin Inj) 5,000 units SQ Q12HR [facility] Ceftriaxone Sodium 1,000 mg/ (Sodium Chloride) 100 mls @ 200 mls/hr IV.SIG Q24H [facility] Last Admin: 06/28/18 09:27 Dose: 200 mls/hr Lactated Ringer's (Lr 1000 Ml Inj) 1,000 mls @ 30 mls/hr IV.SIG .Q24H [facility] Stop: 06/29/18 09:59 Sodium Chloride (Ns Inj) 500 mls @ 30 mls/hr IV.SIG .Q10H [facility] Insulin Aspart (Novolog Insulin Correctional Sugar Inj) 0 unit SQ ACHS [facility]; Protocol Last Admin: 06/28/18 07:40 Dose: Not Given Nadolol (Corgard) 20 mg PO DAILY [facility] Last Admin: 06/28/18 09:31 Dose: 20 mg Pantoprazole Sodium (Protonix) 40 mg PO DAILY [facility] Last Admin: 06/28/18 09:31 Dose: 40 mg Sodium Chloride (Ns Flush) 2 ml IV.FLUSH PRN PRN PRN Reason: FLUSH AFTER USING IV ACCESS Sodium Chloride (Ns Flush) 2 ml IV.FLUSH BID [facility] Spironolactone (Aldactone) 200 mg PO DAILY [facility] Last Admin: 06/28/18 09:30 Dose: 200 mg Exam Vital signs: Vital Signs 06/27/18 12:00 06/27/18 16:00 06/27/18 20:00 Temperature 98.1 F 98.6 F 98.6 F Pulse Rate 62 68 67 Respiratory Rate 18 18 18 Blood Pressure 116/59 L 110/62 97/55 L Pulse Oximetry 97 94 L 92 L 06/27/18 20:44 06/28/18 00:00 06/28/18 08:00 Temperature 98.3 F 98.5 F Pulse Rate 74 64 Respiratory Rate 18 18 Blood Pressure 103/65 118/62 Pulse Oximetry 94 L 94 L 94 L 06/28/18 09:50 Temperature Pulse Rate Respiratory Rate Blood Pressure Pulse Oximetry 93 L Intake & Output 06/27/18 06/28/18 06/28/18 18:59 06:59 18:59 Intake Total 580 / 580 120 / 120 Output Total 500 / 500 Balance 580 / 580 -380 / -380 Weight 81.6 kg Intake: IV 100 / 100 Rocephin Inj 1,000 MG In NS Inj 100 / 100 100 ML @ 200 mls/hr IV.SIG Q24H [facility] Rx#:[id number] Oral 480 / 480 120 / 120 Output: Urine 500 / 500 Other: # Voids 1 Date of Last Bowel Movement 06/27/18 06/27/18 # Bowel Movements 2 Results - Lab Results 06/28/18 05:38 06/28/18 05:38 Most recent lab results ABG pH 7.44 (7.380-7.420) H 06/25/18 07:57 ABG pCO2 37 mmHg (38-42) L 06/25/18 07:57 ABG pO2 60 mmHg (61-120) L 06/25/18 07:57 ABG HCO3 25 mmol/L (22-26) 06/25/18 07:57 Calcium 7.5 mg/dL (8.5-10.1) L 06/28/18 05:38 Assessment and Plan - Assessment (1) Acute on chronic kidney failure Code(s): N17.9 - Acute kidney failure, unspecified; N18.9 - Chronic kidney disease, unspecified Status: Acute (2) Pneumonia Code(s): J18.9 - Pneumonia, unspecified organism Status: Acute (3) Diabetes Code(s): E11.9 - Type 2 diabetes mellitus without complications Status: Acute (4) Abdominal distension Code(s): R14.0 - Abdominal distension (gaseous) Status: Acute - Attending Attestation patient was seen and examined. Renal function is worsening, could be secondary to hypotension and renal hypoperfusion. May need to reduce diuretics. Recommendations to follow. Obtain urine electrolytes. <Des Arora - Last Filed: 06/27/18 17:16> (2) Pneumonia Qualifiers: Pneumonia type: due to unspecified organism Laterality: right Lung location : middle lobe of lung Qualified Code(s): J18.1 - Lobar pneumonia, unspecified organism <Papi Busby - Last Filed: 06/28/18 10:16> (2) Pneumonia Qualifiers: Pneumonia type: due to unspecified organism Laterality: right Lung location : middle lobe of lung Qualified Code(s): J18.1 - Lobar pneumonia, unspecified organism
--- NOTE | 2018-06-27 17:35 | P.PNGI ---
Subjective Interval history: Patient sitting up in bed Denies abdominal pain, endorses abdominal bloating and increasing distention Denies shortness of breath Patient post paracentesis and thoracentesis Physical Exam Vital signs: Vital Signs 06/26/18 20:00 06/27/18 00:00 06/27/18 08:00 Temperature 98.5 F 97.6 F 98.5 F Pulse Rate 72 71 72 Respiratory Rate 16 18 18 Blood Pressure 98/54 L 102/55 L 123/67 Pulse Oximetry 96 96 96 06/27/18 10:05 06/27/18 12:00 06/27/18 16:00 Temperature 98.1 F 98.6 F Pulse Rate 62 68 Respiratory Rate 18 18 Blood Pressure 116/59 L 110/62 Pulse Oximetry 96 97 94 L Intake & Output 06/26/18 06/27/18 06/27/18 18:59 06:59 18:59 Intake Total 1100 / 1100 580 / 580 100 / 100 Balance 1100 / 1100 580 / 580 100 / 100 Weight 81 kg Intake: IV 350 / 350 100 / 100 Azithromycin Inj 500 MG In NS 250 / 250 Inj 250 ML @ 250 mls/hr IV.SIG ONCE ONE Rx#:[id number] Rocephin Inj 1,000 MG In NS Inj 100 / 100 100 / 100 100 ML @ 200 mls/hr IV.SIG Q24H [facility] Rx#:[id number] Oral 750 / 750 580 / 580 Other: # Voids 5 3 Date of Last Bowel Movement 06/26/18 06/26/18 06/27/18 # Bowel Movements 2 # Incontinent Bowel Movements 3 - Constitutional no acute distress, chronically ill appearing - Routine HEENT Exam Head: Present: normocephalic - Routine Respiratory Exam Present: CTA bilaterally - Routine Cardiovascular Exam Present: RRR - Routine Abdominal Exam Present: soft, normoactive bowel sounds, distended. Absent: tenderness - Routine Extremities Exam Present: edema, pulses intact - Routine Skin Exam Present: dry, warm - Routine Neurological Exam Present: alert Results - Labs CBC & Chem 7: 06/27/18 06:51 06/27/18 06:51 Laboratory Results - last 24 hr 06/25/18 06/26/18 06/27/18 17:15 21:32 06:51 WBC RBC Hgb Hct MCV MCH MCHC RDW Plt Count MPV Prelim Diff (Auto) Neut % (Auto) Lymph % (Auto) Peach % (Auto) Eos % (Auto) Baso % (Auto) Neut # (Auto) Lymph # (Auto) Peach # (Auto) Eos # (Auto) Baso # (Auto) WBC Differential Seg Neuts % (Manual) Band Neuts % (Manual) Lymphocytes % (Manual) Monocytes % (Manual) Eosinophils % (Manual) Abs Neuts (Manual) Differential Comment Smudge Cells Platelet Estimate Platelet Morphology Sodium 142 Potassium 4.4 Chloride 107 Carbon Dioxide 26.4 Anion Gap 9 BUN 48 H Creatinine 3.12 H Estimated GFR 15 L POC Glucose 128 H Random Glucose 188 H Calcium 7.5 L Triglycerides Cholesterol LDL Cholesterol, Calc HDL Cholesterol Cholesterol/HDL Ratio Pleural Mesothelial 6 06/27/18 06/27/18 06/27/18 06:51 06:51 07:12 WBC 22.1 H D RBC 3.74 L Hgb 11.2 L Hct 33.8 L MCV 90.4 MCH 29.9 MCHC 33.0 RDW 14.9 Plt Count 210 MPV 8.9 Prelim Diff (Auto) Slide review pending Neut % (Auto) 28.5 Lymph % (Auto) 64.1 H Peach % (Auto) 4.3 Eos % (Auto) 2.7 Baso % (Auto) 0.4 Neut # (Auto) 6.3 Lymph # (Auto) 14.1 H Peach # (Auto) 0.9 Eos # (Auto) 0.6 H Baso # (Auto) 0.1 WBC Differential Manual diff final Seg Neuts % (Manual) 20 Band Neuts % (Manual) 1 Lymphocytes % (Manual) 74 H Monocytes % (Manual) 4 Eosinophils % (Manual) 1 Abs Neuts (Manual) 4.6 Differential Comment . Smudge Cells Present H Platelet Estimate Normal Platelet Morphology Normal Sodium Potassium Chloride Carbon Dioxide Anion Gap BUN Creatinine Estimated GFR POC Glucose 164 H Random Glucose Calcium Triglycerides 118 Cholesterol 134 LDL Cholesterol, Calc 82 HDL Cholesterol 28.2 L Cholesterol/HDL Ratio 4.75 Pleural Mesothelial 06/27/18 06/27/18 11:03 16:06 WBC RBC Hgb Hct MCV MCH MCHC RDW Plt Count MPV Prelim Diff (Auto) Neut % (Auto) Lymph % (Auto) Peach % (Auto) Eos % (Auto) Baso % (Auto) Neut # (Auto) Lymph # (Auto) Peach # (Auto) Eos # (Auto) Baso # (Auto) WBC Differential Seg Neuts % (Manual) Band Neuts % (Manual) Lymphocytes % (Manual) Monocytes % (Manual) Eosinophils % (Manual) Abs Neuts (Manual) Differential Comment Smudge Cells Platelet Estimate Platelet Morphology Sodium Potassium Chloride Carbon Dioxide Anion Gap BUN Creatinine Estimated GFR POC Glucose 134 H 159 H Random Glucose Calcium Triglycerides Cholesterol LDL Cholesterol, Calc HDL Cholesterol Cholesterol/HDL Ratio Pleural Mesothelial Microbiology 06/25/18 17:15 Abscess - Chest Acid Fast Bacilli Smear - Final No acid fast bacilli seen 06/25/18 17:45 Fluid - Peritoneal fluid Acid Fast Bacilli Smear - Final No acid fast bacilli seen 06/25/18 17:15 Fluid - Pleural fluid Gram Stain - Final 06/25/18 17:15 Fluid - Pleural fluid Body Fluid Culture - Preliminary No growth in 48 hours 06/25/18 17:45 Fluid - Peritoneal fluid Gram Stain - Final 06/25/18 17:45 Fluid - Peritoneal fluid Body Fluid Culture - Preliminary No growth in 48 hours 06/25/18 19:15 Fluid - Pleural fluid Fungal Smear - Final No fungal elements seen 06/25/18 17:45 Fluid - Peritoneal fluid Fungal Smear - Final No fungal elements seen Assessment and Plan - Plan This is a 72-year-old obese female who had been in her usual state of health up until the past 3 months she noticed her abdomen beginning to become distended and noted some diffuse abdominal discomfort which has continued to worsen over this period of time patient came into the hospital on 06/25/2018 with shortness of breath and was getting to the point that she could hardly walk. She also notes that she is been sleeping on pillows and has noted some generalized weakness, fatigue, and low-grade fever off and on, nausea and no vomiting. Patient denies any previous history of any liver disease notes EGD and colonoscopy done years ago unknown timing or event but thinks it may have been with the [facility] group. Patient is a poor historian. Patient denies any rectal bleeding or hematemesis but has noted increased lower extremity edema also worsening over the past 2-3 months. Gastroenterology has been consulted to assist in this patient's care and control of her symptoms. Ultrasound done this admission did note moderate ascites and cirrhotic liver. Chest x-ray showed small to moderate pleural effusions. Labs reviewed which shows a hemoglobin 11.6, WBC 20.7, PT/INR 1.1, bilirubin 0.8, AST 41 mildly elevated and ALT 21, alkaline phosphatase 211. Patient notes only minimal social alcohol intake not even on a monthly basis and no previous history of tobacco use. Liver cirrhosis, unknown to patient so this appears to be a new diagnosis. Patient will need liver workup and AFP and CA-19-9 to evaluate for any metastasis. Liver ultrasound does show moderate ascites and cirrhotic liver Transaminitis mild AST 41 normal bilirubin and normal ALT, alkaline phosphatase 211. Minimal EtOH only on occasional rare social living Abdominal pain and distention probably related to #1. Recommend the need to consider paracentesis per IR, possible Wednesday Nausea but no vomiting 06/27/2018 New-onset ascites, cirrhosis -06/25/2018 thoracentesis ultrasound revealed the following--. Uncomplicated right thoracentesis. -06/25/2018 paracentesis--Total volume of 5700 cc of clear, yellow fluid was removed. Fluid was sent to lab for ordered studies. -WBC 22.1 hemoglobin 11.2 hematocrit 33.8 platelet count 210 -Triglycerides 118 cholesterol 134 LDL 82 HDL 28.2 cholesterol/HDL ratio 4.75 -Alpha-fetoprotein 1.8 CA 199 antigen 15.2 ,serum immunology pending -06/25/2018 CT abdomen and pelvis 1. Suspected cirrhotic liver. 2. Mild to moderate amount of ascites. 3. Bilateral pleural effusions being mild on the right and minimal on the left. 4. Increased density at the inferior right middle lobe and right lower lobe likely related to consolidation or atelectasis. 5. Anasarca 6. Tiny nonobstructing left renal stone. Plan -Diet as per attending -N.p.o. after midnight -Obtain consent for EGD -PPI -Heparin-noted held -Lasix 80 mg IV daily -Aldactone 200 mg p.o. daily -Pantoprazole 40 mg p.o. daily -continue bowel regimen supportive care -Further recommendations to follow -Peritoneal studies pending -Bowel regimen This patient has been seen by myself and Dr. Del Real and this note is written on his behalf - Attending Attestation Dr. Del Real
[2018-06-28 06:17] LABS: Baso # (Auto) 0.1 th/mm3 (0.0-0.2); Baso % (Auto) 0.6 % (0.0-2.0); Eos # (Auto) 0.6 th/mm3 (0.0-0.4); Eos % (Auto) 2.4 % (0.0-4.0); Hematocrit 32.8 % (35.0-46.0); Hemoglobin 10.9 gm/dL (11.6-15.3); Lymph # (Auto) 17.1 th/mm3 (1.0-4.8); Lymph % (Auto) 65.4 % (9.0-44.0); Mean Corpuscular HGB Conc 33.1 % (32.0-36.0); Mean Corpuscular Volume 90.7 fL (80.0-100.0); Mean Platelet Volume 8.9 fL (7.0-11.0); Mono # (Auto) 1.1 th/mm3 (0.0-0.9); Mono % (Auto) 4.2 % (0.0-8.0); Neut # (Auto) 7.1 th/mm3 (1.8-7.7); Neut % (Auto) 27.4 % (16.0-70.0); Platelet Count 201 th/mm3 (150-450); Red Blood Count 3.62 mil/mm3 (4.00-5.30); Red Cell Distribution Width 15.1 % (11.6-17.2); White Blood Count 26.1 th/mm3 (4.0-11.0)
[2018-06-28 06:38] LABS: Calcium 7.5 mg/dL (8.5-10.1); Carbon Dioxide 23.7 meq/L (21.0-32.0); Potassium 4.6 meq/L (3.5-5.1)
[2018-06-28] MEDS: Insulin NovoLOG Aspart Correctional Sugar Inj SQ SCH ×4 (07:40→20:37)
[2018-06-28 08:31] LABS: Eosinophils 4 % (0-4); Lymphocytes 64 % (9-44); Monocytes 2 % (0-8); Platelet Estimate Normal (Normal); Platelet Morphology Normal (Normal)
[2018-06-28 08:32] LABS: Smudge Cells Present
[2018-06-28] MEDS: Nadolol 20 MG Tablet PO SCH (09:31)
[2018-06-28] MEDS ORDERED: Metoprolol Tartrate 25 MG Tablet PO ONE (10:00)
[2018-06-28] MEDS ORDERED: Sodium Chlor 0.9% Inj 500 ML IV.SIG SCH (10:00)
[2018-06-28] MEDS ORDERED: Chlorhexidine Gluconate 2% 1 Pack (2 Cloths) TOPICAL ONE (10:00)
--- NOTE | 2018-06-28 10:48 | GIPROC ---
[facility] [address] [facility]. [facility], [address] EGD PROCEDURE REPORT EXAM DATE: 06/28/2018 PATIENT NAME: Nehal Lima MR #: [id number] BIRTHDATE: 1945 ATTENDING: Rodrick Del Real MD ORDER #: [id number] COPYWRITER: Karlo Escoto Stienbarger, Terrie, and Patti Templeton STATUS: inpatient INDICATIONS: The patient is a 72 yr old female here for an EGD due to Cirrhosis PROCEDURE PERFORMED: EGD, diagnostic MEDICATIONS: Per Anesthesia and None. TOPICAL ANESTHETIC: none CONSENT: The patient understands the risks and benefits of the procedure and understands that these risks include, but are not limited to: sedation, allergic reaction, infection, perforation and/or bleeding. Alternative means of evaluation and treatment include, among others: physical exam, x-rays, and/or surgical intervention. The patient elects to proceed with this endoscopic procedure. medical equipment was checked for proper function. Hand hygiene and appropriate measures for infection prevention was taken. After the risks, benefits and alternatives of the procedure were thoroughly explained, Informed consent was verified, confirmed and timeout was successfully executed by the treatment team. The patient was anesthetized with topical anesthesia and the Pentax [id number] endoscope was introduced through the mouth and advanced to the second portion of the duodenum. Retroflexed views revealed a hiatal hernia The gastroscope was then slowly withdrawn and removed. ESOPHAGUS: There was LA Class B esophagitis noted. A single non-bleeding, linear and deep ulcer ranging between 3-7mm in size was found in the distal esophagus. There were 3 columns of small varices in the distal esophagus. The varices were not bleeding. There was evidence of prior scarring. Multiple biopsies were performed. STOMACH: Mild portal hypertensive gastropathy was found in the entire examined stomach. There was mild gastritis in the gastric antrum. DUODENUM: The duodenal mucosa appeared normal in the entire duodenum. ADVERSE EVENTS: There were no complications. IMPRESSIONS: 1. There was LA Class B esophagitis noted 2. Single ulcer ranging between 3-7mm in size was found in the distal esophagus 3. Portal hypertensive gastropathy was found in the entire examined stomach 4. There was mild gastritis in the gastric antrum 5. Normal duodenal mucosa in the entire duodenum 6. Retroflexed views revealed a hiatal hernia RECOMMENDATIONS: 1. Await biopsy results. Biopsy results will not be ready for 7-10 days. If you don't hear from us in two weeks, call our office for biopsy results. 2. Protonix 40 bid nadalol 20 qd PATIENT CONDITION: fair DISPOSITION: Inpatient REPEAT EXAM: Return 3 months EGD Rodrick Del Real MD eSigned: Rodrick Del Real MD 06/28/2018 10:48 AM cc: PATIENT NAME: Nehal Lima MR#: [id number]
--- NOTE | 2018-06-28 11:08 | XR ---
EXAM DATE: 06/28/2018 11:05 AM EST AGE/SEX: 72 years / Female INDICATIONS: Shortness of breath. CLINICAL DATA: This is the patient's subsequent encounter. Patient reports that signs and symptoms h ave been present for 3 days and indicates a pain score of 0/10. MEDICAL/SURGICAL HISTORY: . Asthma. Diabetes. Hypertension. Leukemia. Gout. . Thyroidectomy. [place] [facility] [place]. . FINDINGS: Lungs are hypoaerated. There is no evidence of acute airspace disease or significant congestion. Heart and mediastinal structures are stable. CONCLUSION: Hypoaerated lungs. No evidence of significant airspace disease or congestion. Electronically signed by: Mo Brooks MD 06/28/2018 11:07 AM EST
--- NOTE | 2018-06-28 12:23 | P.PNIM ---
Subjective Interval history: f/u; anasarca in no acute distress but with mild sob and cough. complaining of abdominal distention. no fever. Physical Exam Vital signs: Last Vital Signs Temp 97.7 F 06/28/18 11:15 Pulse 60 06/28/18 11:30 Resp 21 06/28/18 11:30 BP 102/58 L 06/28/18 11:30 Pulse Ox 94 L 06/28/18 11:30 Intake & Output 06/26/18 06/27/18 06/28/18 06/29/18 06:59 06:59 06:59 06:59 Intake Total 800 / 800 1680 / 1680 700 / 700 300 / 300 Output Total 350 / 350 500 / 500 Balance 450 / 450 1680 / 1680 200 / 200 300 / 300 Weight 81.4 kg 81 kg 81.6 kg Constitutional mild distress Routine Respiratory Exam Present CTA bilaterally Routine Cardiovascular Exam Present RRR Routine Abdominal Exam Present soft and distended Routine Extremities Exam Comments: bilateral pedal edema. Routine Neurological Exam Present alert and oriented X3 Results Labs CBC & Chem 7: 06/28/18 05:38 06/28/18 05:38 Labs: Microbiology 06/25/18 17:15 Fluid - Pleural fluid Gram Stain - Final 06/25/18 17:15 Fluid - Pleural fluid Body Fluid Culture - Final No growth in 72 hours (aerobically and anaerobically ) 06/25/18 17:45 Fluid - Peritoneal fluid Gram Stain - Final 06/25/18 17:45 Fluid - Peritoneal fluid Body Fluid Culture - Final No growth in 72 hours (aerobically and anaerobically ) 06/25/18 17:15 Abscess - Chest Acid Fast Bacilli Smear - Final No acid fast bacilli seen 06/25/18 17:45 Fluid - Peritoneal fluid Acid Fast Bacilli Smear - Final No acid fast bacilli seen Imaging Imaging: Impressions Chest X-Ray 06/28/18 10:46 CONCLUSION: Hypoaerated lungs. No evidence of significant airspace disease or congestion. Assessment and Plan (1) Acute on chronic kidney failure: Code(s): N17.9 - Acute kidney failure, unspecified; N18.9 - Chronic kidney disease, unspecified Status: Acute (2) Pneumonia: Code(s): J18.9 - Pneumonia, unspecified organism Status: Acute (3) Diabetes: Code(s): E11.9 - Type 2 diabetes mellitus without complications Status: Acute (4) Abdominal distension: Code(s): R14.0 - Abdominal distension (gaseous) Status: Acute Plan A/P - sepsis ( leukocytosis/ tachycardia) due to pneumonia; continue with IV antibiotics- cultures negative so far. -pneumonia/ right pleural effusion; Abx as noted above-cultures negative so far - neb treatments. s/p thoracentesis- cultures negative so far. ID cosnulted. echo with EF 55%. echo was d/w ;mobile density reported on the echo probably is not significant clinically. pulmonary following. -abdominal distention/ ascites; s/p paracentesis- hepatitis panel negative- continue diuretics- GI consult appreciated. will consider reconsulting IR for repeated paracentesis. -esophageal ulcer/ gastritis; continue PPI- GI following. -fall/ generalized weakness; consulted PT. -diabetes mellitus; started on accu-check with SSI -acute kidney injury superimposed on chronic renal insufficiency; continue with diuretics; might consider reducing the dose- will monitor the renal function closely- nephrology following. -history of CLL - now with worsening leukocytosis-awaiting ID recommendations- will consider oncology evaluation. -DVT prophylaxis with subq heparin Discharge Planning: pending clinical course. Progress Note: Quality VTE Deep Vein Thrombosis/Pulmonary Embolism Present on Admission: No _ (1) Diabetes Qualifiers: Chronic kidney disease stage: Diabetes mellitus complication detail: Diabetes mellitus complication status: Diabetes mellitus watermaster insulin use : Diabetes mellitus macular edema: Diabetes mellitus type: Diabetic retinopathy severity: Laterality: Proliferative retinopathy type: (2) Acute on chronic kidney failure Qualifiers: Acute renal failure type: Chronic kidney disease stage: (3) Pneumonia Qualifiers: Aspiration pneumonia type: Laterality: right Lung location: middle lobe of lung Pneumonia type: due to unspecified organism Qualified Code(s): J18.1 - Lobar pneumonia, unspecified organism
--- NOTE | 2018-06-28 13:17 | P.CONID ---
History of Present Illness Service: Infectious disease Consult date: 06/28/18 Requesting Physician: Denise Carr Reason for Consult: Evaluate patient with leukocytosis Primary Care Provider: UNKNOWN Chief Complaint: shortness of breath History of Present Illness: Patient seen and examined. Records reviewed. Patient is a 72-year-old female presented to the hospital complaining of shortness of breath. She has had problem with shortness of breath over the last several months, but it has progressively worsened that she has difficulty ambulating. She gets orthopnea. She occasionally has cough but no phlegm. Denies any chest pain. She admits to some intermittent low-grade fevers. It was also noted that her abdomen has been more distended. On evaluation she was found to have pleural effusions as well as ascites and liver cirrhosis on ultrasound. She also had a CT of the abdomen and pelvis which did not show any lymphadenopathy. She has not been febrile. She has had thoracentesis and they took out 1.2 L of fluid. Paracentesis and they took out 5.7 L of ascites. Since admission she has had leukocytosis of 20,000 and higher. 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 She has not required any treatment for her CLL. Patient currently she has had upper endoscopy. She has had some diarrhea. She is noted increased abdominal girth again. Patient also has had increasing creatinine, and her urine output has been decreasing. Stool for C. difficile is negative. I do not have a urinalysis. Her initial chest x-ray on admission showing a right base infiltrate and effusion. Her last chest x-ray after she has had thoracenteses showed hypoaeration, with no infiltrates seen. Patient has been on Rocephin since admission. Infectious disease consultation has been requested to assist with evaluation and treatment of leukocytosis. Review of Systems Constitutional: Reports lack of energy, Denies chills, Denies fever(s) Eyes: Denies discharge, Denies dry eyes Ears, Nose, Mouth, and Throat: Denies difficulty swallowing, Denies ear pain, Denies facial pain, Denies pain with swallowing, Denies sore throat Cardiovascular: Reports leg swelling, Denies chest pain, Denies shortness of breath Respiratory: Denies chest congestion, Denies cough, Denies shortness of breath Gastrointestinal: Reports abdominal pain, Reports loose stools, Denies nausea, Denies pain with swallowing, Denies vomiting Genitourinary: Denies difficulty urinating Musculoskeletal: Denies joint pain, Denies joint swelling Skin/Breast: Denies rash, Denies sores Neurologic: Denies headache(s) [facility] - History History Provided By: Patient - Medical History Medical History: Medical History (Last Reviewed 06/28/18 @ 13:04 by Goldie Daniels MD) Asthma Diabetes Gout Hypertension Leukemia - Surgical History Surgical History: Surgical History (Last Reviewed 06/28/18 @ 13:04 by Goldie Daniels MD) H/O foot surgery H/O thyroidectomy - Family History Family History: Family History (Last Reviewed 06/28/18 @ 13:04 by Goldie Daniels MD) Other No pertinent family history - Tobacco History Second Hand Smoke Exposure: No Smoking Status: Never smoker - Alcohol History How Often Do You Have a Drink Containing Alcohol: Monthly or less - Substance Use History Substance History: No History of Abuse - Travel History Recent Travel in the [place] Within the Last 8 Weeks: No Recent Travel Out of the Country Within the Last 8 Weeks: No - Immunization History Tetanus Immunization: Unsure Hx Influenza Vaccine This Season: Yes Medications and Allergies Active Medications: Active Medications Albuterol (Albuterol Neb (Prn)) 1.25 mg NEB Q2HR NEB PRN PRN Reason: sob Dextrose (D50w Vial) 50 ml IV.PUSH UNSCH PRN PRN Reason: PER HYPOGLYCEMIA PROTOCOL Furosemide (Lasix Inj) 80 mg IV.PUSH DAILY [facility] Last Admin: 06/28/18 09:31 Dose: 80 mg Glucagon (Glucagon Inj) 1 mg OTHER PRN PRN PRN Reason: for Hypoglycemia Protocol Heparin Sodium (Porcine) (Heparin Inj) 5,000 units SQ Q12HR [facility] Ceftriaxone Sodium 1,000 mg/ (Sodium Chloride) 100 mls @ 200 mls/hr IV.SIG Q24H [facility] Last Infusion: 06/28/18 10:00 Dose: Infused Lactated Ringer's (Lr 1000 Ml Inj) 1,000 mls @ 30 mls/hr IV.SIG .Q24H [facility] Stop: 06/29/18 09:59 Last Admin: 06/28/18 12:27 Dose: Not Given Sodium Chloride (Ns Inj) 500 mls @ 30 mls/hr IV.SIG .Q10H [facility] Insulin Aspart (Novolog Insulin Correctional Sugar Inj) 0 unit SQ ACHS [facility]; Protocol Last Admin: 06/28/18 12:28 Dose: Not Given Nadolol (Corgard) 20 mg PO DAILY [facility] Last Admin: 06/28/18 09:31 Dose: 20 mg Pantoprazole Sodium (Protonix) 40 mg PO DAILY [facility] Last Admin: 06/28/18 09:31 Dose: 40 mg Sodium Chloride (Ns Flush) 2 ml IV.FLUSH PRN PRN PRN Reason: FLUSH AFTER USING IV ACCESS Sodium Chloride (Ns Flush) 2 ml IV.FLUSH BID [facility] Spironolactone (Aldactone) 200 mg PO DAILY [facility] Last Admin: 06/28/18 09:30 Dose: 200 mg Allergies Allergy/AdvReac Type Severity Reaction Status Date / Time No Known Allergies Allergy Verified 06/25/18 05:25 Home Medications Medication Instructions Recorded Confirmed Type Multi Vitamin PO DAILY 06/25/18 History allopurinol PO DAILY 06/25/18 History glipizide PO DAILY 06/25/18 History levothyroxine 300 mcg PO DAILY 06/25/18 06/25/18 History Exam Vital signs: Vital Signs 06/27/18 16:00 06/27/18 20:00 06/27/18 20:44 Temperature 98.6 F 98.6 F Pulse Rate 68 67 Respiratory Rate 18 18 Blood Pressure 110/62 97/55 L Pulse Oximetry 94 L 92 L 94 L 06/28/18 00:00 06/28/18 08:00 06/28/18 09:40 Temperature 98.3 F 98.5 F Pulse Rate 74 64 Respiratory Rate 18 18 Blood Pressure 103/65 118/62 Pulse Oximetry 94 L 93 L 93 L 06/28/18 09:50 06/28/18 10:44 06/28/18 11:00 Temperature 97.7 F Pulse Rate 67 62 Respiratory Rate 25 H 22 Blood Pressure 115/61 104/59 L Pulse Oximetry 93 L 89 L 94 L 06/28/18 11:15 06/28/18 11:30 Temperature 97.7 F Pulse Rate 58 L 60 Respiratory Rate 20 21 Blood Pressure 94/52 L 102/58 L Pulse Oximetry 94 L 94 L Intake & Output 06/27/18 06/28/18 06/28/18 18:59 06:59 18:59 Intake Total 580 / 580 120 / 120 300 / 300 Output Total 500 / 500 Balance 580 / 580 -380 / -380 300 / 300 Weight 81.6 kg Intake: IV 100 / 100 100 / 100 Rocephin Inj 1,000 MG In NS Inj 100 / 100 100 / 100 100 ML @ 200 mls/hr IV.SIG Q24H [facility] Rx#:[id number] Oral 480 / 480 120 / 120 Anesthesia Amount 200 / 200 Output: Urine 500 / 500 Other: # Voids 1 Date of Last Bowel Movement 06/27/18 06/27/18 06/27/18 # Bowel Movements 2 Narrative: Physical examination GENERAL: Patient is a well-nourished, well-developed female, awake and alert , not in respiratory distress. SKIN: Cool and dry. No generalized rash, no ecchymoses and no evidence of embolic lesions. HEAD: Atraumatic. Normocephalic. No temporal wasting, or tenderness. EYES: [place] conjunctiva. No petechia or hemorrhage. Pupils equal, round and reactive to light. Extraocular movements full and intact. No scleral icterus. No injection or drainage. EARS, NOSE AND THROAT: Nose without bleeding or purulent nasal discharge. No sinus tenderness. Mucous membranes pink and moist. No oral lesions noted. No exudate. No oral thrush. NECK: Trachea midline. Supple and not tender, no meningeal signs CARDIOVASCULAR: Regular rate and rhythm. No murmurs, rubs or gallops heard RESPIRATORY: Decreased breath sounds at bases, has few scattered wheezing ABDOMEN: Globular, non-tender, mildly distended. Bowel sounds present and normoactive. No guarding. No rebound. No organomegaly. EXTREMITIES: No clubbing, cyanosis. Has mild pedal edema. No joint effusion , has good ROM. No calf tenderness. Well perfused and warm. NEUROLOGICAL: Awake and alert. Cranial nerves grossly intact. Motor grossly within normal limits. PSYCHIATRIC: Normal affect, calm and cooperative. LINE: No evidence of infection Results - Labs CBC & Chem 7: 06/28/18 05:38 06/28/18 05:38 Labs: Laboratory Results - last 24 hr 06/27/18 06/27/18 06/27/18 06:51 13:20 16:06 WBC RBC Hgb Hct MCV MCH MCHC RDW Plt Count MPV Prelim Diff (Auto) Neut % (Auto) Lymph % (Auto) [place] % (Auto) Eos % (Auto) Baso % (Auto) Neut # (Auto) Lymph # (Auto) [place] # (Auto) Eos # (Auto) Baso # (Auto) WBC Differential Seg Neuts % (Manual) Lymphocytes % (Manual) Monocytes % (Manual) Eosinophils % (Manual) Abs Neuts (Manual) Differential Comment Smudge Cells Platelet Estimate Platelet Morphology Sodium Potassium Chloride Carbon Dioxide Anion Gap BUN Creatinine Estimated GFR POC Glucose 159 H Random Glucose Calcium Triglycerides 118 Cholesterol 134 LDL Cholesterol, Calc 82 HDL Cholesterol 28.2 L Cholesterol/HDL Ratio 4.75 Stl C.difficile DNA Amp Negative St C. diff Tox Epid 027 Negative 06/27/18 06/28/18 06/28/18 21:13 05:38 05:38 WBC 26.1 H RBC 3.62 L Hgb 10.9 L Hct 32.8 L MCV 90.7 MCH 30.0 MCHC 33.1 RDW 15.1 Plt Count 201 MPV 8.9 Prelim Diff (Auto) Slide review pending Neut % (Auto) 27.4 Lymph % (Auto) 65.4 H [place] % (Auto) 4.2 Eos % (Auto) 2.4 Baso % (Auto) 0.6 Neut # (Auto) 7.1 Lymph # (Auto) 17.1 H [place] # (Auto) 1.1 H Eos # (Auto) 0.6 H Baso # (Auto) 0.1 WBC Differential Manual diff final Seg Neuts % (Manual) 30 Lymphocytes % (Manual) 64 H Monocytes % (Manual) 2 Eosinophils % (Manual) 4 Abs Neuts (Manual) 7.8 H Differential Comment . Smudge Cells Present H Platelet Estimate Normal Platelet Morphology Normal Sodium 140 Potassium 4.6 Chloride 107 Carbon Dioxide 23.7 Anion Gap 9 BUN 53 H Creatinine 3.61 H Estimated GFR 12 L POC Glucose 142 H Random Glucose 137 H Calcium 7.5 L Triglycerides Cholesterol LDL Cholesterol, Calc HDL Cholesterol Cholesterol/HDL Ratio Stl C.difficile DNA Amp St C. diff Tox Epid 027 - Imaging Impressions Chest X-Ray 06/28/18 10:46 CONCLUSION: Hypoaerated lungs. No evidence of significant airspace disease or congestion. Assessment and Plan - Plan Impression Leukocytosis, etiology? - no obvious source of infection - CXR now clear after tap - no UA, no complaints - C diff negative - ?part of her CLL, has lymphocyte predominance on manual diff Eligio effusions and ascites, etiology? Known CLL, stage 0 Renal failure Recommendation Follow CBC Will get UA Follow C/S On Rocephin, and will continue for now Consider getting evaluation by Dr Flores I will follow along with you Thank you for this consultation Explained plan to patient and family
[2018-06-28 13:58] LABS: Smooth Muscle Total Auto Abs Negative (Negative)
--- NOTE | 2018-06-28 16:04 | P.PNNP ---
Subjective Interval history: Patient was seen s/p EGD. Patient continues to complain of SOB and abdominal distention. Patient stated she has made little urine output. Diuretics have been stopped. IV fluids and Albumin ordered. Chest x-ray today revealed Hypoaerated lungs. <Des Arora - Last Filed: 06/28/18 17:03> Physical Exam Vital signs: Vital Signs 06/27/18 16:00 06/27/18 20:00 06/27/18 20:44 Temperature 98.6 F 98.6 F Pulse Rate 68 67 Respiratory Rate 18 18 Blood Pressure 110/62 97/55 L Pulse Oximetry 94 L 92 L 94 L 06/28/18 00:00 06/28/18 08:00 06/28/18 09:40 Temperature 98.3 F 98.5 F Pulse Rate 74 64 Respiratory Rate 18 18 Blood Pressure 103/65 118/62 Pulse Oximetry 94 L 93 L 93 L 06/28/18 09:50 06/28/18 10:44 06/28/18 11:00 Temperature 97.7 F Pulse Rate 67 62 Respiratory Rate 25 H 22 Blood Pressure 115/61 104/59 L Pulse Oximetry 93 L 89 L 94 L 06/28/18 11:15 06/28/18 11:30 Temperature 97.7 F Pulse Rate 58 L 60 Respiratory Rate 20 21 Blood Pressure 94/52 L 102/58 L Pulse Oximetry 94 L 94 L Intake & Output 06/27/18 06/28/18 06/28/18 18:59 06:59 18:59 Intake Total 580 / 580 120 / 120 300 / 300 Output Total 500 / 500 Balance 580 / 580 -380 / -380 300 / 300 Weight 81.6 kg Intake: IV 100 / 100 100 / 100 Rocephin Inj 1,000 MG In NS Inj 100 / 100 100 / 100 100 ML @ 200 mls/hr IV.SIG Q24H [facility] Rx#:[id number] Oral 480 / 480 120 / 120 Anesthesia Amount 200 / 200 Output: Urine 500 / 500 Other: # Voids 1 Date of Last Bowel Movement 06/27/18 06/27/18 06/27/18 # Bowel Movements 2 - Constitutional no acute distress - Routine HEENT Exam Head: Present: normocephalic Eye: Present: EOMI, PERRL ENT: Present: mucous membranes moist - Routine Neck Exam Present: trachea midline. Absent: JVD, tracheal deviation - Routine Respiratory Exam Present: decreased breath sounds. Absent: accessory muscle use - Routine Cardiovascular Exam Present: RRR - Routine Abdominal Exam Present: tenderness, distended, firm - Routine Extremities Exam Absent: edema - Routine Neurological Exam Present: alert, oriented X3 - Routine Psychiatric Exam Present: normal affect <Des Arora - Last Filed: 06/28/18 17:03> Vital signs: Vital Signs 06/28/18 09:40 06/28/18 09:50 06/28/18 10:44 Temperature 97.7 F Pulse Rate 67 Respiratory Rate 25 H Blood Pressure 115/61 Pulse Oximetry 93 L 93 L 89 L 06/28/18 11:00 06/28/18 11:15 06/28/18 11:30 Temperature 97.7 F Pulse Rate 62 58 L 60 Respiratory Rate 22 20 21 Blood Pressure 104/59 L 94/52 L 102/58 L Pulse Oximetry 94 L 94 L 94 L 06/28/18 16:00 06/28/18 20:00 06/29/18 00:00 Temperature 97.4 F L 98.2 F 97.5 F L Pulse Rate 60 60 58 L Respiratory Rate 17 17 16 Blood Pressure 123/55 L 91/51 L 106/66 Pulse Oximetry 97 94 L 92 L Intake & Output 06/28/18 06/29/18 06/29/18 18:59 06:59 18:59 Intake Total 1260 / 1260 200 / 200 Output Total 150 / 150 500 / 500 Balance 1110 / 1110 -300 / -300 Weight 82.1 kg Intake: IV 100 / 100 200 / 200 Flexbumin 25% Inj 100 ML @ 60 200 / 200 mls/hr IV.SIG Q12H [facility] Rx#: [id number] Rocephin Inj 1,000 MG In NS Inj 100 / 100 100 ML @ 200 mls/hr IV.SIG Q24H [facility] Rx#:[id number] Oral 960 / 960 Anesthesia Amount 200 / 200 Output: Urine 150 / 150 500 / 500 Other: # Voids 4 Date of Last Bowel Movement 06/27/18 # Bowel Movements 1 1 <Papi Busby - Last Filed: 06/29/18 09:26> Assessment and Plan - Assessment (1) Acute on chronic kidney failure Code(s): N17.9 - Acute kidney failure, unspecified; N18.9 - Chronic kidney disease, unspecified Status: Acute Plan: Renal function is worsening, could be secondary to hypotension and renal hypoperfusion. Patient is not aware of baseline kidney function. Abdominal CT of kidneys was unremarkable. Patient has made little urine output. Diuretics have been stopped. Possibility of dialysis discussed with patient. IV fluids and Albumin ordered. Monitor fluid and electrolytes. Avoid Nephrotoxic agents. (2) Pneumonia Code(s): J18.9 - Pneumonia, unspecified organism Status: Acute Qualifiers: Pneumonia type: due to unspecified organism Laterality: right Lung location: middle lobe of lung Qualified Code(s): J18.1 - Lobar pneumonia, unspecified organism Plan: Patient is on IV Ceftriaxone and Azithromycin. s/p thoracentesis- cultures negative so far. (3) Diabetes Code(s): E11.9 - Type 2 diabetes mellitus without complications Status: Acute Plan: Insulin coverage to maintain glucose levels between 140 and 180. (4) Abdominal distension Code(s): R14.0 - Abdominal distension (gaseous) Status: Acute Plan: s/p paracentesis. Hepatitis panel negative. GI on the case EGD revealed gastritis. <Des Arora - Last Filed: 06/28/18 17:03> - Assessment (1) Acute on chronic kidney failure Code(s): N17.9 - Acute kidney failure, unspecified; N18.9 - Chronic kidney disease, unspecified Status: Acute (2) Pneumonia Code(s): J18.9 - Pneumonia, unspecified organism Status: Acute Qualifiers: Pneumonia type: due to unspecified organism Laterality: right Lung location: middle lobe of lung Qualified Code(s): J18.1 - Lobar pneumonia, unspecified organism (3) Diabetes Code(s): E11.9 - Type 2 diabetes mellitus without complications Status: Acute (4) Abdominal distension Code(s): R14.0 - Abdominal distension (gaseous) Status: Acute - Attending Attestation patient was seen and examined. Possibility of hepatorenal syndrome should be considered. Poor prognosis. Start IVF and albumin. However she has reaccumulation of ascites. Poor prognosis. <Papi Busby - Last Filed: 06/29/18 09:26>
[2018-06-28] MEDS: Albumin Human 25% Inj 100 ML IV.SIG SCH (17:29)
[2018-06-28] MEDS: Sod Chloride 0.9% Inj 1,000 ML IV.CONT SCH (17:30)
--- NOTE | 2018-06-28 18:54 | P.PNPL ---
Subjective Interval history: 72 YOWF with br asthma, DM, Rt lung infilt and Pl eff Breathing better C/O bloating in belly no Abd pain has diarrhoea no fever Had EGD Physical Exam Vital signs: Vital Signs 06/27/18 20:00 06/27/18 20:44 06/28/18 00:00 Temperature 98.6 F 98.3 F Pulse Rate 67 74 Respiratory Rate 18 18 Blood Pressure 97/55 L 103/65 Pulse Oximetry 92 L 94 L 94 L 06/28/18 08:00 06/28/18 09:40 06/28/18 09:50 Temperature 98.5 F Pulse Rate 64 Respiratory Rate 18 Blood Pressure 118/62 Pulse Oximetry 93 L 93 L 93 L 06/28/18 10:44 06/28/18 11:00 06/28/18 11:15 Temperature 97.7 F 97.7 F Pulse Rate 67 62 58 L Respiratory Rate 25 H 22 20 Blood Pressure 115/61 104/59 L 94/52 L Pulse Oximetry 89 L 94 L 94 L 06/28/18 11:30 06/28/18 16:00 Temperature 97.4 F L Pulse Rate 60 60 Respiratory Rate 21 17 Blood Pressure 102/58 L 123/55 L Pulse Oximetry 94 L 97 Intake & Output 06/27/18 06/28/18 06/28/18 18:59 06:59 18:59 Intake Total 580 / 580 120 / 120 1260 / 1260 Output Total 500 / 500 150 / 150 Balance 580 / 580 -380 / -380 1110 / 1110 Weight 81.6 kg Intake: IV 100 / 100 100 / 100 Rocephin Inj 1,000 MG In NS Inj 100 / 100 100 / 100 100 ML @ 200 mls/hr IV.SIG Q24H [facility] Rx#:[id number] Oral 480 / 480 120 / 120 960 / 960 Anesthesia Amount 200 / 200 Output: Urine 500 / 500 150 / 150 Other: # Voids 1 4 Date of Last Bowel Movement 06/27/18 06/27/18 06/27/18 # Bowel Movements 2 1 GENERAL: Elderly WF,NAD SKIN: Warm and dry. HEAD: Normocephalic. EYES: No scleral icterus. No injection or drainage. NECK: Supple, trachea midline. No JVD or lymphadenopathy. CARDIOVASCULAR: Regular rate and rhythm without murmurs, gallops, or rubs. RESPIRATORY: Breath sounds equal bilaterally. No accessory muscle use. GASTROINTESTINAL: Abdomen soft, non-tender, nondistended. MUSCULOSKELETAL: No cyanosis, or edema. BACK: Nontender without obvious deformity. No CVA tenderness. Assessment and Plan - Plan IMPRESSION: 1. Right lung infiltrate. 2. Right pleural effusion. 3. Dyspnea. 4. Diabetes mellitus. 5. Hypertension. 6. Renal insufficiency and chronic kidney disease. PLAN: Cont Abx Supplement 02 Aerosol nebs Heparin 5000 IU SQ q 12 hrs
[2018-06-29] MEDS: Albumin Human 25% Inj 100 ML IV.SIG SCH ×2 (04:22→18:33)
[2018-06-29 07:30] LABS: Baso # (Auto) 0.1 th/mm3 (0.0-0.2); Baso % (Auto) 0.5 % (0.0-2.0); Eos # (Auto) 0.6 th/mm3 (0.0-0.4); Hematocrit 30.9 % (35.0-46.0); Lymph % (Auto) 62.2 % (9.0-44.0); Mean Corpuscular HGB Conc 32.5 % (32.0-36.0); Mean Corpuscular Hemoglobin 30.1 pg (27.0-34.0); Mean Corpuscular Volume 92.6 fL (80.0-100.0); Mono # (Auto) 0.9 th/mm3 (0.0-0.9); Mono % (Auto) 4.1 % (0.0-8.0); Neut # (Auto) 6.3 th/mm3 (1.8-7.7); Neut % (Auto) 30.2 % (16.0-70.0); Platelet Count 163 th/mm3 (150-450); Red Blood Count 3.34 mil/mm3 (4.00-5.30); Red Cell Distribution Width 15.2 % (11.6-17.2); White Blood Count 20.9 th/mm3 (4.0-11.0)
[2018-06-29 07:59] LABS: Carbon Dioxide 24.3 meq/L (21.0-32.0); Potassium 4.4 meq/L (3.5-5.1)
[2018-06-29 08:56] LABS: Eosinophils 1 % (0-4); Lymphocytes 66 % (9-44); Monocytes 2 % (0-8); Smudge Cells Present
[2018-06-29 08:57] LABS: Platelet Estimate Normal (Normal); Platelet Morphology Normal (Normal)
[2018-06-29] MEDS: Nadolol 20 MG Tablet PO SCH (09:15)
[2018-06-29] MEDS: Insulin NovoLOG Aspart Correctional Sugar Inj SQ SCH ×4 (09:15→21:04)
--- NOTE | 2018-06-29 10:42 | P.PNIM ---
Subjective Interval history: f/u ;SIERRA/ Cirrhosis with mild sob. complaining of abdominal distrention. no fever. Physical Exam Vital signs: Last Vital Signs Temp 97.4 F L 06/29/18 08:00 Pulse 65 06/29/18 08:00 Resp 18 06/29/18 08:00 BP 123/67 06/29/18 08:00 Pulse Ox 94 L 06/29/18 09:35 Intake & Output 06/27/18 06/28/18 06/29/18 06/30/18 06:59 06:59 06:59 06:59 Intake Total 1680 / 1680 700 / 700 1460 / 1460 Output Total 500 / 500 650 / 650 Balance 1680 / 1680 200 / 200 810 / 810 Weight 81 kg 81.6 kg 82.1 kg Constitutional mild distress Routine Respiratory Exam Present CTA bilaterally Routine Cardiovascular Exam Present RRR Routine Abdominal Exam Present soft and distended Routine Extremities Exam Comments: bilateral pedal edema. Routine Neurological Exam Present alert and oriented X3 Results Labs CBC & Chem 7: 06/29/18 06:13 06/29/18 06:13 Labs: Microbiology 06/25/18 17:15 Fluid - Pleural fluid Gram Stain - Final 06/25/18 17:15 Fluid - Pleural fluid Body Fluid Culture - Final No growth in 72 hours (aerobically and anaerobically ) 06/25/18 17:45 Fluid - Peritoneal fluid Gram Stain - Final 06/25/18 17:45 Fluid - Peritoneal fluid Body Fluid Culture - Final No growth in 72 hours (aerobically and anaerobically ) Imaging Imaging: Impressions Chest X-Ray 06/28/18 10:46 CONCLUSION: Hypoaerated lungs. No evidence of significant airspace disease or congestion. Assessment and Plan (1) Acute on chronic kidney failure: Code(s): N17.9 - Acute kidney failure, unspecified; N18.9 - Chronic kidney disease, unspecified Status: Acute (2) Pneumonia: Code(s): J18.9 - Pneumonia, unspecified organism Status: Acute (3) Diabetes: Code(s): E11.9 - Type 2 diabetes mellitus without complications Status: Acute (4) Abdominal distension: Code(s): R14.0 - Abdominal distension (gaseous) Status: Acute Plan A/P - sepsis ( leukocytosis/ tachycardia) due to pneumonia; continue with IV antibiotics- cultures negative so far. -pneumonia/ right pleural effusion; Abx as noted above-cultures negative so far - neb treatments. s/p thoracentesis- cultures negative so far. ID consult appreciated. echo with EF 55%. echo was d/w ;mobile density reported on the echo probably is not significant clinically. pulmonary following. -abdominal distention/ ascites; s/p paracentesis- hepatitis panel negative- diuretics stopped due to SIERRA- GI consult appreciated. will consider reconsulting IR for repeated paracentesis. -esophageal ulcer/ gastritis; continue PPI- GI following. -fall/ generalized weakness; consulted PT. -diabetes mellitus; started on accu-check with SSI -acute kidney injury superimposed on chronic renal insufficiency; possible hepatorenal syndrome-diuretics discontinued. nephrology following; will consider HD if no improvement in kidney function. -history of CLL - now with worsening leukocytosis-ID consult appreciated- will consider oncology evaluation. -DVT prophylaxis with subq heparin overall poor prgnosis; d/w ; will consult palliative care with consideration of hospice. Discharge Planning: pending clinical course/ palliative care evelaution. Progress Note: Quality VTE Deep Vein Thrombosis/Pulmonary Embolism Present on Admission: No _ (1) Acute on chronic kidney failure Qualifiers: Acute renal failure type: Chronic kidney disease stage: (2) Pneumonia Qualifiers: Aspiration pneumonia type: Laterality: right Lung location: middle lobe of lung Pneumonia type: due to unspecified organism Qualified Code(s): J18.1 - Lobar pneumonia, unspecified organism (3) Diabetes Qualifiers: Diabetes mellitus type: Diabetes mellitus fpc insulin use: Diabetes mellitus complication status: Diabetes mellitus complication detail: Diabetic retinopathy severity: Proliferative retinopathy type: Diabetes mellitus macular edema: Laterality: Chronic kidney disease stage:
[2018-06-29 11:50] LABS: Bilirubin,Urine Negative (Negative); Clarity,Urine Clear (Clear); Color,Urine Yellow (Yellw/Straw); Glucose,Urine (UA) Negative (Negative); Hyaline Casts,Urine 14 /lpf (0-3); Leukocyte Esterase,Urine Negative (Negative); Nitrite,Urine Negative (Negative); Specific Gravity,Urine 1.011 (1.002-1.035); Squamous Epithelial Cell,Urine 3 /hpf (0-5)
--- NOTE | 2018-06-29 12:09 | P.CONPAL ---
Consult Service: Palliative Care Requesting Physician: Denise Carr Reason for Consult: a. To assist with evaluation and management of symptoms including: Shortness of breath, debility b. To assist medical decision maker(s) with: better understanding of current medical conditions; weighing benefits/burdens of medical treatment options; making medical treatment decisions. Primary Care Provider: UNKNOWN History of Present Illness History of Present Illness: Mrs. Phoenix is a 72-year-old female with a past medical history of chronic lymphoid leukemia, asthma, diabetes mellitus, fatty liver, gout, arthritis, kidney disease, and thyroid disease. Patient presented to the emergency room on 06/25/18 for evaluation of generalized weakness, abdominal distention, shortness of breath and a painful bump on her head which she sustained from a fall from her water bed a week prior to presenting to the emergency room. ER course: * Vital signs: Temperature 98.7F, pulse 103, respiratory rate 20, BP 133/82, O2 saturation 96% * Laboratory workup revealed WBC 20.7, hemoglobin 11.6, hematocrit 35.1, platelet count 221, PT 11.4, INR 1.1, sodium 141, potassium 4.0, BUN/creatinine 43/2.75, random glucose 184, calcium 8.0, iron 41, TIBC 206, ferritin 307, total bilirubin 0.8, AST 41, ALT 21, troponin less than 0.02, total protein 7.0 , albumin 2.5 * Serology nonreactive for hepatitis A IgM Ab, hep Bs antigen, hep B core IgM and Ab, hep C IgG Ab * EKG reveals sinus tachycardia marked left axis deviation low QRS voltage in precordial leads possible anterior myocardial infarction. * Echocardiogram revealed normal left ventricular systolic function with an estimated ejection fraction in the range of 55-60% and trace mitral valve regurgitation. * Pulmonology Dr. Wilkerson consulted on 06/25/18 for evaluation and management of a patient with pleural effusion, recommended continuing with antibiotics, aerosol treatments, thoracentesis if patient has significant pleural effusion. * Chest ultrasound revealed large right pleural effusion without appreciable loculation. * Head CT revealed no evidence of acute infarct, hemorrhage, mass or edema. * Abdominal ultrasound revealed moderate ascites and hepatic cirrhosis. * GI Dr. Garza consulted on 06/25/18 for evaluation and for patient with cirrhosis, recommended CTabdomen/pelvis, echocardiogram, starting patient on Spironolactone, nadolol and Protonix. * Abdomen/pelvis CT revealed suspected cirrhotic liver. Mild to moderate amount of ascites. Bilateral pleural effusions mild on the right and minimal on the left. Increased density at the inferior right middle lobe and right lower lobe likely related to consolidation or atelectasis. Anasarca. Tiny nonobstructing left renal stone. * Patient underwent ultrasound guided paracentesis by interventional radiology with removal of 5700 mL's of clear, yellow fluid. * Patient underwent ultrasound-guided thoracentesis by interventional radiology with removal of 1200 mL's of clear, yellow fluid. * Repeat chest x-ray post right-sided thoracentesis showed no pneumothorax. * [facility] Physical therapy consulted. Peritoneal fluid from thoracentesis resulted on 05/05 was negative for malignant cells. Nephrology Dr. Busby consulted on 05/05 for evaluation and management of a patient with acute on chronic kidney disease. Patient underwent diagnostic EGD on 06/28/18, patient noted to have LA class B esophagitis, single ulcer in the distal esophagus mild gastritis in the gastric antrum and portal hypertensive gastropathy in the entire stomach. Infectious disease Dr. Daniels consulted on 06/28/18 for evaluation and management of leukocytosis, recommended urinalysis, culture and sensitivity if indicated, follow CBC and consider consulting hematology/oncology Dr. Flores. Patient's renal function has continued to deteriorate and it is noted that nephrology has discussed hospice with the patient. 06/29/18 patient underwent therapeutic ultrasound guided paracentesis with removal of 5900 mL's of clear, red fluid. Clinical course complicated by shortness of breath, worsening renal function, and recurrent ascites. Palliative care consulted to assist with symptom management and establishment of goals of medical treatment. Patient seen and examined in her room. She is just arrived from interventional radiology where she just had paracentesis. Patient denies pain or discomfort. She actually states that she feels better than she did before paracentesis. She is alert, oriented to self, place and situation. Patient portrays ability to weigh burdens and benefits of treatment as well is have insight regarding her medical condition. During this first visit introduced palliative care and its role in symptom management and establishment of goals of medical treatment. Obtained psychosocial, past medical history and events leading to this hospitalization. Patient was able to state what her physicians have explained to her regarding her condition as well as interventions that had been done since admission. Patient has never completed advanced directives. During this visit patient designated her spouse Higinio Lima as her healthcare surrogate and a neighbor Sudheer Nicholson as her alternate healthcare surrogate. Assisted patient with completing healthcare surrogate form. Address CODE STATUS, discussed CPR, benefits, complications and limitations. Patient elected full code. Patient states that she is frustrated that she just learned during this hospitalization that she has liver cirrhosis and her kidneys are failing. Patient would like to be resuscitated and be placed on life support if need be. She states that today has been a difficult day for her due to bad news regarding her health. Expressed concern regarding her deteriorating renal function. Patient states that she will be amenable to hemodialysis if need be. She mentioned that yesterday she saw on television a woman that was about to have the "plug pulled " but then she lived after doctors had given her a few days to live. Briefly differentiated reality and fiction for patient. She expresses that she definitely would not want to continue to live if she would end up in a vegetative state. Encouraged patient to discuss her wishes with her spouse as well as the alternate healthcare surrogate so that in the event that they have to serve as her decision makers they would honor her wishes. Function/Cognitive Trajectory: Patient resides at home with her spouse. She uses a 4 wheeled walker and has a water bed and a rolling chair that she has been falling down from. Patient reports having multiple falls at home with no injuries. She states that she is independent of all her ADLs though she struggles with accomplishing them. She receives meals on wheels. Review of Systems Constitutional: Reports fatigue, Reports fever(s) (Low-grade fever on and off) Eyes: Denies blurry vision Ears, Nose, Mouth, and Throat: Denies abnormal hearing, Denies hearing loss, Denies nasal congestion Cardiovascular: Reports shortness of breath, Reports shortness of breath with activity, Denies chest pain, Denies leg swelling Respiratory: Reports cough, Reports shortness of breath, Reports shortness of breath with activity Gastrointestinal: Reports nausea, Denies bright, red blood in stools, Denies vomiting Genitourinary: Denies urinary incontinence Musculoskeletal: Reports muscle weakness Skin/Breast: Reports unusual bruising, Reports yellowing of the skin Neurologic: Reports frequent falls, Denies abnormal speech, Denies confusion Psychiatric: Denies change in appetite, Denies confusion Endocrine: Denies increased urination Hematologic/Lymphatic: Reports easy bruising PMFSH - History History Provided By: Medical Record - Medical History Medical History: Medical History (Last Updated 06/29/18 @ 14:13 by Leo Steinberg) Hypertension (Acute) Arthritis Asthma Chronic lymphoid leukemia Diabetes mellitus Fatty liver Gout Hypertension Kidney disease Thyroid disease - Surgical History Surgical History: Surgical History (Last Updated 06/29/18 @ 12:01 by Leo Steinberg) H/O Achilles tendon repair H/O foot surgery H/O thyroidectomy History of back surgery History of colonoscopy - Family History Family History: Family History (Last Updated 06/29/18 @ 12:02 by Leo Steinberg) Mother Breast cancer Stroke Father Motor vehicle accident Sister Spina bifida Other No pertinent family history - Tobacco History Second Hand Smoke Exposure: No Smoking Status: Never smoker - Alcohol History How Often Do You Have a Drink Containing Alcohol: Monthly or less - Substance Use History Substance History: No History of Abuse - Travel History Recent Travel in the [place] Within the Last 8 Weeks: No Recent Travel Out of the Country Within the Last 8 Weeks: No - Immunization History Tetanus Immunization: Unsure Hx Influenza Vaccine This Season: Yes Medications and Allergies Active Medications: Active Medications Albuterol (Albuterol Neb (Prn)) 1.25 mg NEB Q2HR NEB PRN PRN Reason: sob Dextrose (D50w Vial) 50 ml IV.PUSH UNSCH PRN PRN Reason: PER HYPOGLYCEMIA PROTOCOL Glucagon (Glucagon Inj) 1 mg OTHER PRN PRN PRN Reason: for Hypoglycemia Protocol Heparin Sodium (Porcine) (Heparin Inj) 5,000 units SQ Q12HR [facility] Ceftriaxone Sodium 1,000 mg/ (Sodium Chloride) 100 mls @ 200 mls/hr IV.SIG Q24H [facility] Last Admin: 06/29/18 09:14 Dose: 200 mls/hr Sodium Chloride (Ns Inj) 500 mls @ 30 mls/hr IV.SIG .Q10H [facility] Last Admin: 06/28/18 17:12 Dose: Not Given Albumin Human (Flexbumin 25% Inj) 100 mls @ 60 mls/hr IV.SIG Q12H [facility] Last Infusion: 06/29/18 06:03 Dose: Infused Sodium Chloride (Ns Inj) 1,000 mls @ 50 mls/hr IV.CONT .Q20H [facility] Last Admin: 06/28/18 17:30 Dose: 50 mls/hr Insulin Aspart (Novolog Insulin Correctional Sugar Inj) 0 unit SQ ACHS [facility]; Protocol Last Admin: 06/29/18 09:15 Dose: Not Given Nadolol (Corgard) 20 mg PO DAILY [facility] Last Admin: 06/29/18 09:15 Dose: 20 mg Pantoprazole Sodium (Protonix) 40 mg PO DAILY [facility] Last Admin: 06/29/18 09:15 Dose: 40 mg Sodium Chloride (Ns Flush) 2 ml IV.FLUSH PRN PRN PRN Reason: FLUSH AFTER USING IV ACCESS Sodium Chloride (Ns Flush) 2 ml IV.FLUSH BID [facility] Last Admin: 06/29/18 09:15 Dose: 2 ml Allergies Allergy/AdvReac Type Severity Reaction Status Date / Time No Known Allergies Allergy Verified 06/25/18 05:25 Home Medications Medication Instructions Recorded Confirmed Type Multi Vitamin PO DAILY 06/25/18 History allopurinol PO DAILY 06/25/18 History glipizide PO DAILY 06/25/18 History levothyroxine 300 mcg PO DAILY 06/25/18 06/25/18 History Advance Directives Advance Directives Date on File: 06/29/18 Living Will: No Healthcare Surrogate: Yes Health Care Surrogate Name and Number: HCS: Clarence Sylvetser [phone] Alt: Bharat Willard Power of General Service Technician: No Today's verbally stated goals: Patient states that she will take 1 day at the time and is hopeful that she will get better. . Family/friends goals: No family at bedside. . Ethical and Legal Issues: None identified at this time. . Physical Exam Vital Signs: Vital Signs - 24 hr 06/28/18 16:00 06/28/18 20:00 06/29/18 00:00 Temperature 97.4 F L 98.2 F 97.5 F L Pulse Rate 60 60 58 L Respiratory Rate 17 17 16 Blood Pressure 123/55 L 91/51 L 106/66 Pulse Oximetry 97 94 L 92 L 06/29/18 08:00 06/29/18 09:35 Temperature 97.4 F L Pulse Rate 65 Respiratory Rate 18 Blood Pressure 123/67 Pulse Oximetry 93 L 94 L I&O: Intake & Output 06/27/18 06/28/18 06/29/18 06/30/18 06:59 06:59 06:59 06:59 Intake Total 1680 / 1680 700 / 700 1460 / 1460 Output Total 500 / 500 650 / 650 Balance 1680 / 1680 200 / 200 810 / 810 Weight 81 kg 81.6 kg 82.1 kg Physical Exam: CONSTITUTIONAL/GENERAL: This is a chronically ill looking elderly patient, in no acute distress TUBES/LINES/DRAINS: PIV SKIN: Pale. Slightly jaundiced ecchymoses on upper extremities. No wounds seen anteriorly. Skin temperature appropriate. Not diaphoretic. HEAD: Atraumatic. Normocephalic. EYES: Pupils equal and round and reactive. Extraocular motions intact. No scleral icterus. No injection or drainage. Fundi not examined. ENT: Hearing grossly normal. Nose without bleeding or purulent drainage. Edentulous. NECK: Trachea midline. Supple, nontender. CARDIOVASCULAR: Regular rate and rhythm without murmurs, gallops, or rubs. No JVD. Peripheral pulses symmetric. RESPIRATORY/CHEST: Symmetric, unlabored respirations. Clear to auscultation. Breath sounds equal bilaterally. No wheezes, rales, or rhonchi. GASTROINTESTINAL: Abdomen soft, non-tender, slightly distended. No guarding. Bowel sounds present. GENITOURINARY: Without palpable bladder distension. MUSCULOSKELETAL: Extremities without clubbing, cyanosis, or edema. No joint tenderness or effusion noted. No calf tenderness. No mottling or clubbing. LYMPHATICS: Did not assess NEUROLOGICAL: Awake and alert. Motor and sensory grossly within normal limits. Follows commands. Cognitively sharp. Moves all extremities. PSYCHIATRIC: No obvious anxiety/depression. no apparent hallucinations or other psychotic thought process. Diagnostic Tests Laboratory: Laboratory Results - last 72 hr 06/25/18 06/25/18 06/26/18 16:42 17:15 06:57 WBC RBC Hgb Hct MCV MCH MCHC RDW Plt Count MPV Prelim Diff (Auto) Neut % (Auto) Lymph % (Auto) [place] % (Auto) Eos % (Auto) Baso % (Auto) Neut # (Auto) Lymph # (Auto) [place] # (Auto) Eos # (Auto) Baso # (Auto) WBC Differential Manual diff final Seg Neuts % (Manual) 36 Band Neuts % (Manual) 1 Lymphocytes % (Manual) 53 H Monocytes % (Manual) 4 Eosinophils % (Manual) 6 H Basophils % (Manual) Abs Neuts (Manual) 5.0 Differential Comment Smudge Cells Present H Platelet Estimate Normal Platelet Morphology Normal Ovalocytes 1+ H Sodium Potassium Chloride Carbon Dioxide Anion Gap BUN Creatinine Estimated GFR POC Glucose Random Glucose Calcium Triglycerides Cholesterol LDL Cholesterol, Calc HDL Cholesterol Cholesterol/HDL Ratio Urine Color Urine Clarity Urine pH Ur Specific [place] Urine Protein Urine Glucose (UA) Urine Ketones Urine Occult Blood Urine Nitrate Urine Bilirubin Urine Urobilinogen Ur Leukocyte Esterase Urine RBC Urine WBC Ur Squamous Epith Cells Hyaline Casts Micro UA Comment Ur Microscopic Review Urine Culture Comments Pleural Mesothelial 6 Stl C.difficile DNA Amp St C. diff Tox Epid 027 Rheumatoid Factor Less than 14 Anti-Smooth Muscle Ab Negative 06/26/18 06/26/18 06/27/18 16:55 21:32 06:51 WBC RBC Hgb Hct MCV MCH MCHC RDW Plt Count MPV Prelim Diff (Auto) Neut % (Auto) Lymph % (Auto) [place] % (Auto) Eos % (Auto) Baso % (Auto) Neut # (Auto) Lymph # (Auto) [place] # (Auto) Eos # (Auto) Baso # (Auto) WBC Differential Seg Neuts % (Manual) Band Neuts % (Manual) Lymphocytes % (Manual) Monocytes % (Manual) Eosinophils % (Manual) Basophils % (Manual) Abs Neuts (Manual) Differential Comment Smudge Cells Platelet Estimate Platelet Morphology Ovalocytes Sodium 142 Potassium 4.4 Chloride 107 Carbon Dioxide 26.4 Anion Gap 9 BUN 48 H Creatinine 3.12 H Estimated GFR 15 L POC Glucose 153 H 128 H Random Glucose 188 H Calcium 7.5 L Triglycerides Cholesterol LDL Cholesterol, Calc HDL Cholesterol Cholesterol/HDL Ratio Urine Color Urine Clarity Urine pH Ur Specific [place] Urine Protein Urine Glucose (UA) Urine Ketones Urine Occult Blood Urine Nitrate Urine Bilirubin Urine Urobilinogen Ur Leukocyte Esterase Urine RBC Urine WBC Ur Squamous Epith Cells Hyaline Casts Micro UA Comment Ur Microscopic Review Urine Culture Comments Pleural Mesothelial Stl C.difficile DNA Amp St C. diff Tox Epid 027 Rheumatoid Factor Anti-Smooth Muscle Ab 06/27/18 06/27/18 06/27/18 06:51 06:51 07:12 WBC 22.1 H D RBC 3.74 L Hgb 11.2 L Hct 33.8 L MCV 90.4 MCH 29.9 MCHC 33.0 RDW 14.9 Plt Count 210 MPV 8.9 Prelim Diff (Auto) Slide review pending Neut % (Auto) 28.5 Lymph % (Auto) 64.1 H [place] % (Auto) 4.3 Eos % (Auto) 2.7 Baso % (Auto) 0.4 Neut # (Auto) 6.3 Lymph # (Auto) 14.1 H [place] # (Auto) 0.9 Eos # (Auto) 0.6 H Baso # (Auto) 0.1 WBC Differential Manual diff final Seg Neuts % (Manual) 20 Band Neuts % (Manual) 1 Lymphocytes % (Manual) 74 H Monocytes % (Manual) 4 Eosinophils % (Manual) 1 Basophils % (Manual) Abs Neuts (Manual) 4.6 Differential Comment . Smudge Cells Present H Platelet Estimate Normal Platelet Morphology Normal Ovalocytes Sodium Potassium Chloride Carbon Dioxide Anion Gap BUN Creatinine Estimated GFR POC Glucose 164 H Random Glucose Calcium Triglycerides 118 Cholesterol 134 LDL Cholesterol, Calc 82 HDL Cholesterol 28.2 L Cholesterol/HDL Ratio 4.75 Urine Color Urine Clarity Urine pH Ur Specific [place] Urine Protein Urine Glucose (UA) Urine Ketones Urine Occult Blood Urine Nitrate Urine Bilirubin Urine Urobilinogen Ur Leukocyte Esterase Urine RBC Urine WBC Ur Squamous Epith Cells Hyaline Casts Micro UA Comment Ur Microscopic Review Urine Culture Comments Pleural Mesothelial Stl C.difficile DNA Amp St C. diff Tox Epid 027 Rheumatoid Factor Anti-Smooth Muscle Ab 06/27/18 06/27/18 06/27/18 11:03 13:20 16:06 WBC RBC Hgb Hct MCV MCH MCHC RDW Plt Count MPV Prelim Diff (Auto) Neut % (Auto) Lymph % (Auto) [place] % (Auto) Eos % (Auto) Baso % (Auto) Neut # (Auto) Lymph # (Auto) [place] # (Auto) Eos # (Auto) Baso # (Auto) WBC Differential Seg Neuts % (Manual) Band Neuts % (Manual) Lymphocytes % (Manual) Monocytes % (Manual) Eosinophils % (Manual) Basophils % (Manual) Abs Neuts (Manual) Differential Comment Smudge Cells Platelet Estimate Platelet Morphology Ovalocytes Sodium Potassium Chloride Carbon Dioxide Anion Gap BUN Creatinine Estimated GFR POC Glucose 134 H 159 H Random Glucose Calcium Triglycerides Cholesterol LDL Cholesterol, Calc HDL Cholesterol Cholesterol/HDL Ratio Urine Color Urine Clarity Urine pH Ur Specific [place] Urine Protein Urine Glucose (UA) Urine Ketones Urine Occult Blood Urine Nitrate Urine Bilirubin Urine Urobilinogen Ur Leukocyte Esterase Urine RBC Urine WBC Ur Squamous Epith Cells Hyaline Casts Micro UA Comment Ur Microscopic Review Urine Culture Comments Pleural Mesothelial Stl C.difficile DNA Amp Negative St C. diff Tox Epid 027 Negative Rheumatoid Factor Anti-Smooth Muscle Ab 06/27/18 06/28/18 06/28/18 21:13 05:38 05:38 WBC 26.1 H RBC 3.62 L Hgb 10.9 L Hct 32.8 L MCV 90.7 MCH 30.0 MCHC 33.1 RDW 15.1 Plt Count 201 MPV 8.9 Prelim Diff (Auto) Slide review pending Neut % (Auto) 27.4 Lymph % (Auto) 65.4 H [place] % (Auto) 4.2 Eos % (Auto) 2.4 Baso % (Auto) 0.6 Neut # (Auto) 7.1 Lymph # (Auto) 17.1 H [place] # (Auto) 1.1 H Eos # (Auto) 0.6 H Baso # (Auto) 0.1 WBC Differential Manual diff final Seg Neuts % (Manual) 30 Band Neuts % (Manual) Lymphocytes % (Manual) 64 H Monocytes % (Manual) 2 Eosinophils % (Manual) 4 Basophils % (Manual) Abs Neuts (Manual) 7.8 H Differential Comment . Smudge Cells Present H Platelet Estimate Normal Platelet Morphology Normal Ovalocytes Sodium 140 Potassium 4.6 Chloride 107 Carbon Dioxide 23.7 Anion Gap 9 BUN 53 H Creatinine 3.61 H Estimated GFR 12 L POC Glucose 142 H Random Glucose 137 H Calcium 7.5 L Triglycerides Cholesterol LDL Cholesterol, Calc HDL Cholesterol Cholesterol/HDL Ratio Urine Color Urine Clarity Urine pH Ur Specific [place] Urine Protein Urine Glucose (UA) Urine Ketones Urine Occult Blood Urine Nitrate Urine Bilirubin Urine Urobilinogen Ur Leukocyte Esterase Urine RBC Urine WBC Ur Squamous Epith Cells Hyaline Casts Micro UA Comment Ur Microscopic Review Urine Culture Comments Pleural Mesothelial Stl C.difficile DNA Amp St C. diff Tox Epid 027 Rheumatoid Factor Anti-Smooth Muscle Ab 06/28/18 06/28/18 06/29/18 17:05 20:36 06:13 WBC 20.9 H RBC 3.34 L Hgb 10.0 L Hct 30.9 L MCV 92.6 MCH 30.1 MCHC 32.5 RDW 15.2 Plt Count 163 MPV 9.0 Prelim Diff (Auto) Slide review pending Neut % (Auto) 30.2 Lymph % (Auto) 62.2 H [place] % (Auto) 4.1 Eos % (Auto) 3.0 Baso % (Auto) 0.5 Neut # (Auto) 6.3 Lymph # (Auto) 13.0 H [place] # (Auto) 0.9 Eos # (Auto) 0.6 H Baso # (Auto) 0.1 WBC Differential Manual diff final Seg Neuts % (Manual) 26 Band Neuts % (Manual) 4 Lymphocytes % (Manual) 66 H Monocytes % (Manual) 2 Eosinophils % (Manual) 1 Basophils % (Manual) 1 Abs Neuts (Manual) 6.3 Differential Comment . Smudge Cells Present H Platelet Estimate Normal Platelet Morphology Normal Ovalocytes Sodium Potassium Chloride Carbon Dioxide Anion Gap BUN Creatinine Estimated GFR POC Glucose 139 H 134 H Random Glucose Calcium Triglycerides Cholesterol LDL Cholesterol, Calc HDL Cholesterol Cholesterol/HDL Ratio Urine Color Urine Clarity Urine pH Ur Specific [place] Urine Protein Urine Glucose (UA) Urine Ketones Urine Occult Blood Urine Nitrate Urine Bilirubin Urine Urobilinogen Ur Leukocyte Esterase Urine RBC Urine WBC Ur Squamous Epith Cells Hyaline Casts Micro UA Comment Ur Microscopic Review Urine Culture Comments Pleural Mesothelial Stl C.difficile DNA Amp St C. diff Tox Epid 027 Rheumatoid Factor Anti-Smooth Muscle Ab 06/29/18 06/29/18 06:13 11:30 WBC RBC Hgb Hct MCV MCH MCHC RDW Plt Count MPV Prelim Diff (Auto) Neut % (Auto) Lymph % (Auto) [place] % (Auto) Eos % (Auto) Baso % (Auto) Neut # (Auto) Lymph # (Auto) [place] # (Auto) Eos # (Auto) Baso # (Auto) WBC Differential Seg Neuts % (Manual) Band Neuts % (Manual) Lymphocytes % (Manual) Monocytes % (Manual) Eosinophils % (Manual) Basophils % (Manual) Abs Neuts (Manual) Differential Comment Smudge Cells Platelet Estimate Platelet Morphology Ovalocytes Sodium 140 Potassium 4.4 Chloride 107 Carbon Dioxide 24.3 Anion Gap 9 BUN 61 H Creatinine 3.82 H Estimated GFR 12 L POC Glucose Random Glucose 100 Calcium 8.0 L Triglycerides Cholesterol LDL Cholesterol, Calc HDL Cholesterol Cholesterol/HDL Ratio Urine Color Yellow Urine Clarity Clear Urine pH 5.0 Ur Specific [place] 1.011 Urine Protein 30 H Urine Glucose (UA) Negative Urine Ketones Negative Urine Occult Blood Negative Urine Nitrate Negative Urine Bilirubin Negative Urine Urobilinogen Less than 2 Ur Leukocyte Esterase Negative Urine RBC Less than 1 Urine WBC 2 Ur Squamous Epith Cells 3 Hyaline Casts 14 Micro UA Comment Culture not ind Ur Microscopic Review Not Reportable Urine Culture Comments Culture not ind Pleural Mesothelial Stl C.difficile DNA Amp St C. diff Tox Epid 027 Rheumatoid Factor Anti-Smooth Muscle Ab Result Diagrams: 07/01/18 04:43 07/01/18 04:43 Microbiology: Microbiology 06/25/18 17:15 Gram Stain - Final Fluid - Pleural fluid Body Fluid Culture - Final No growth in 72 hours (aerobically and anaerobically) 06/25/18 17:45 Gram Stain - Final Fluid - Peritoneal fluid Body Fluid Culture - Final No growth in 72 hours (aerobically and anaerobically) 06/25/18 17:15 Acid Fast Bacilli Smear - Final Abscess - Chest No acid fast bacilli seen 06/25/18 17:45 Acid Fast Bacilli Smear - Final Fluid - Peritoneal fluid No acid fast bacilli seen 06/25/18 19:15 Fungal Smear - Final Fluid - Pleural fluid No fungal elements seen 06/25/18 17:45 Fungal Smear - Final Fluid - Peritoneal fluid No fungal elements seen Imaging: Abdomen Ultrasound 06/25/18 00:00 CONCLUSION: 1. Moderate ascites 2. Hepatic cirrhosis Abdomen/Pelvis CT 06/25/18 00:00 CONCLUSION: 1. Suspected cirrhotic liver. 2. Mild to moderate amount of ascites. 3. Bilateral pleural effusions being mild on the right and minimal on the left. 4. Increased density at the inferior right middle lobe and right lower lobe likely related to consolidation or atelectasis. 5. Anasarca 6. Tiny nonobstructing left renal stone. Chest Ultrasound 06/25/18 00:00 CONCLUSION: 1. Large right pleural effusion without appreciable loculation. Paracentesis Ultrasound 06/25/18 00:00 CONCLUSION: 1. Uncomplicated paracentesis. A suture was placed to gain hemostasis secondary to a small cutaneous venous bleed. This suture can be removed in 2-3 days. Thoracentesis Ultrasound 06/25/18 00:00 CONCLUSION: 1. Uncomplicated right thoracentesis. Head CT 06/25/18 06:47 CONCLUSION: 1. Stable evaluation of the head. 2. No evidence of acute infarct, hemorrhage, mass or edema. . Chest X-Ray 06/28/18 10:46 CONCLUSION: Hypoaerated lungs. No evidence of significant airspace disease or congestion. Procedures: 06/25/18-Ultrasound guided paracentesis by interventional radiology with removal of 5700 mL's of clear, yellow fluid. 06/25/18 -Ultrasound-guided thoracentesis by interventional radiology with removal of 1200 mL's of clear, yellow fluid. 06/29/1852-[id number] paracentesis by interventional radiology with removal of 5900 mL's of clear, red fluid. Patient/Family Conference Family Conference Location: Bedside Issues Discussed: * Palliative care role, purpose, approach * Additional medical, psychosocial, and spiritual history * Patients general health, functional status, and cognitive changes in the months leading up to the current hospitalization * Patient/family understanding of the current medical problems * Patient/family understanding of prognosis * Patients goals of care as best understood from advance directives and/or conversations and/or values * Current medical treatment options and benefits/burdens of those options * Likely scenarios comparing ongoing aggressive care with a transition to comfort measures only * Questions answered to the best of my ability * Palliative care contact information provided Assessment and Plan - Disease Oriented Problem List (1) Sepsis (2) Diabetes (3) Pneumonia (4) Acute on chronic kidney failure (5) Abdominal distension - Symptom Scale (1) Shortness of breath 0-10 Scale: Unable to quantify Comment: This is most likely from ascites and pleural effusion. Patient has had ultrasound guided thoracentesis on 03/05 with removal of 1200 mL's of clear, yellow fluid and ultrasound guided paracentesis on 06/25/18 with removal of 5700 mL's of clear fluid. (2) Debility 0-10 Scale: Unable to quantify Comment: Progressive. Patient has multiple ongoing comorbidities. Pertinent Non-Medical Issues: Psychosocial: Patient is originally from [facility]. She moved to [place] in 1983. She has been to her current for 29 years. 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 Patient has never had children. Spiritual: Patient is Anabaptism-open to nuclear station operator visit. Legal: Patient has completed designation of healthcare surrogate form today 07/05. Ethical issues impacting care: None identified at this time Important Contacts: Spouse-Higinio Lima [phone] . Prognosis: Mrs. Phoenix is a 72-year-old female with a past medical history of chronic lymphoid leukemia, asthma, diabetes mellitus, fatty liver, gout, arthritis, kidney disease, and thyroid disease. Patient presented to the emergency room on 06/25/18 for evaluation of generalized weakness, abdominal distention, shortness of breath and a painful bump on her head which she sustained from a fall from her water bed a week prior to presenting to the emergency room. Diagnostic EGD has showed that patient has liver cirrhosis. Clinical course complicated by shortness of breath, worsening renal function, and recurrent ascites. Given multiple ongoing comorbidities, patient remains at high risk for further complications, deterioration and decline. . Code Status: Full Code Plan: PLAN: Legal decision maker: Patient is alert and oriented to self, place and situation. Patient has insight regarding her medical condition and is able to weigh burdens and benefits of treatments offered to her. Patient is capable of making her own medical decisions. In the event that patient is incapacitated, she has designated her spouse Higinio Lima as her healthcare surrogate and her neighbor Sudheer Nicholson is her alternate healthcare surrogate. Goals: Aggressive. Patient has made herself a full code with an understanding of what it entails as well as an understanding of her current medical condition. She does mention that she would not want to live in a vegetative state. In the event that her renal function continues to deteriorate , patient is amenable to hemodialysis. CODE STATUS: Full code SYMPTOMS: * Shortness of breath:This is most likely from ascites and pleural effusion. Patient has had ultrasound guided thoracentesis on 06/25/18 with removal of 1200 mL's of clear, yellow fluid and ultrasound guided paracentesis on 06/25/18 with removal of 5700 mL's of clear fluid. Patient had another therapeutic paracentesis with removal of 5900 mL's of clear red fluid. Patient is currently on O2 2 L nasal cannula with O2 saturation in the mid to high 90s. Patient states that she is breathing much better after paracentesis. * Debility: Progressive. Patient has ongoing multiple comorbidities and has had multiple falls at home. Patient uses a wheeled walker at room. Physical therapy consulted, recommended PT at rehab. Palliative care will continue to follow the patient during hospital course as condition evolves, to assist patient/decision-maker with understanding of their medical conditions, weighing benefits/burdens of treatment options, for clarification of goals of treatment. Additionally will assist with any symptoms of palliative concern Appreciation Thank you for the opportunity to participate in the care of Nehal Lima. Attestation Attestation: To help prompt me to consider important information that might be impacting today's encounter and assessment, information from prior notes written by myself or my colleagues may have been "brought forward" into today's note. My signature on this note, however, is an attestation that I personally performed the exam, history, and/or decision-making noted today, and, unless otherwise indicated, the interactions with patient, family, and staff as well as the review of records all occurred today. I also attest that the listed assessment and stated plan reflect my best clinical judgment today based on the combination of historical information, prior notes, and today's exam/ interactions. When time spent is documented, it refers only to time spent today by the signer, or if indicated, combined time spent today by collaborating physician/nurse practitioner.
--- NOTE | 2018-06-29 12:29 | P.PNNP ---
Subjective Interval history: Patient was seen, no distress, complaints of SOB and abdominal distention. Patient's renal function has continued to declined. Patient started on IVF and albumin yesterday. Hospice discussed with patient. Will wait one more day to decide if dialysis should be considered for patient. <Des Arora - Last Filed: 06/29/18 12:30> Physical Exam Vital signs: Vital Signs 06/28/18 16:00 06/28/18 20:00 06/29/18 00:00 Temperature 97.4 F L 98.2 F 97.5 F L Pulse Rate 60 60 58 L Respiratory Rate 17 17 16 Blood Pressure 123/55 L 91/51 L 106/66 Pulse Oximetry 97 94 L 92 L 06/29/18 08:00 06/29/18 09:35 Temperature 97.4 F L Pulse Rate 65 Respiratory Rate 18 Blood Pressure 123/67 Pulse Oximetry 93 L 94 L Intake & Output 06/28/18 06/29/18 06/29/18 18:59 06:59 18:59 Intake Total 1260 / 1260 200 / 200 Output Total 150 / 150 500 / 500 Balance 1110 / 1110 -300 / -300 Weight 82.1 kg Intake: IV 100 / 100 200 / 200 Flexbumin 25% Inj 100 ML @ 60 200 / 200 mls/hr IV.SIG Q12H [facility] Rx#: [id number] Rocephin Inj 1,000 MG In NS Inj 100 / 100 100 ML @ 200 mls/hr IV.SIG Q24H [facility] Rx#:[id number] Oral 960 / 960 Anesthesia Amount 200 / 200 Output: Urine 150 / 150 500 / 500 Other: # Voids 4 Date of Last Bowel Movement 06/27/18 # Bowel Movements 1 1 - Constitutional no acute distress - Routine HEENT Exam Eye: Present: EOMI, PERRL ENT: Present: mucous membranes moist - Routine Neck Exam Present: trachea midline. Absent: JVD - Routine Respiratory Exam Present: decreased breath sounds - Routine Cardiovascular Exam Present: RRR - Routine Abdominal Exam Present: tenderness, distended, firm - Routine Extremities Exam Absent: edema - Routine Skin Exam Present: intact - Routine Neurological Exam Present: alert, oriented X3 - Routine Psychiatric Exam Present: normal affect <Des Arora - Last Filed: 06/29/18 12:30> Vital signs: Vital Signs 06/28/18 20:00 06/29/18 00:00 06/29/18 08:00 Temperature 98.2 F 97.5 F L 97.4 F L Pulse Rate 60 58 L 65 Respiratory Rate 17 16 18 Blood Pressure 91/51 L 106/66 123/67 Pulse Oximetry 94 L 92 L 93 L 06/29/18 09:35 06/29/18 12:00 06/29/18 14:25 Temperature 97.8 F 98.0 F Pulse Rate 62 62 Respiratory Rate 18 18 Blood Pressure 160/81 H 111/67 Pulse Oximetry 94 L 96 96 06/29/18 16:00 Temperature 97.7 F Pulse Rate 60 Respiratory Rate 18 Blood Pressure 104/56 L Pulse Oximetry 97 Intake & Output 06/28/18 06/29/18 06/29/18 18:59 06:59 18:59 Intake Total 1260 / 1260 200 / 200 1100 / 1100 Output Total 150 / 150 500 / 500 Balance 1110 / 1110 -300 / -300 1100 / 1100 Weight 82.1 kg Intake: IV 100 / 100 200 / 200 1100 / 1100 NS Inj 1,000 ML @ 50 mls/hr IV. 1000 / 1000 CONT .Q20H [facility] Rx#:[id number] Flexbumin 25% Inj 100 ML @ 60 200 / 200 mls/hr IV.SIG Q12H [facility] Rx#: [id number] Rocephin Inj 1,000 MG In NS Inj 100 / 100 100 / 100 100 ML @ 200 mls/hr IV.SIG Q24H [facility] Rx#:[id number] Oral 960 / 960 Anesthesia Amount 200 / 200 Output: Urine 150 / 150 500 / 500 Other: # Voids 4 Date of Last Bowel Movement 06/27/18 06/28/18 # Bowel Movements 1 1 <Papi Busby - Last Filed: 06/29/18 19:01> Assessment and Plan - Assessment (1) Acute on chronic kidney failure Code(s): N17.9 - Acute kidney failure, unspecified; N18.9 - Chronic kidney disease, unspecified Status: Acute Plan: Renal function is worsening, could be secondary to hypotension and renal hypoperfusion. Possibility of hepatorenal syndrome should be considered. Poor prognosis. Hospice discussed with patient. Will wait one more day to decide if dialysis should be considered for patient. Patient started on IVF and albumin yesterday. Monitor fluid and electrolytes. Avoid Nephrotoxic agents. (2) Pneumonia Code(s): J18.9 - Pneumonia, unspecified organism Status: Acute Plan: Patient is on IV Ceftriaxone and Azithromycin. s/p thoracentesis- cultures negative so far. (3) Diabetes Code(s): E11.9 - Type 2 diabetes mellitus without complications Status: Acute Plan: Insulin coverage to maintain glucose levels between 140 and 180. (4) Abdominal distension Code(s): R14.0 - Abdominal distension (gaseous) Status: Acute Plan: s/p paracentesis. Consider reconsulting IR for repeated paracentesis. <Des Arora - Last Filed: 06/29/18 12:30> - Assessment (1) Acute on chronic kidney failure Code(s): N17.9 - Acute kidney failure, unspecified; N18.9 - Chronic kidney disease, unspecified Status: Acute (2) Pneumonia Code(s): J18.9 - Pneumonia, unspecified organism Status: Acute Qualifiers: Pneumonia type: due to unspecified organism Laterality: right Lung location: middle lobe of lung Qualified Code(s): J18.1 - Lobar pneumonia, unspecified organism (3) Diabetes Code(s): E11.9 - Type 2 diabetes mellitus without complications Status: Acute (4) Abdominal distension Code(s): R14.0 - Abdominal distension (gaseous) Status: Acute - Attending Attestation patient was seen and examined. Renal function is worsening. I am concerned that we may be dealing with hepatorenal syndrome. I will order again urine Na and creatinine as previous order was not completed for unclear reasons. Discussed with hospitalist. Discussed with the patient. Her prognosis is poor. I strongly suggest hospice and comfort care. I understand she wants aggressive care, but I do not believe she is a candidate for renal replacement therapy under these circumstances. It can be considered if she is a candidate for either combined liver kidney transplant or liver transplant alone. <Papi Busby - Last Filed: 06/29/18 19:01>
[2018-06-29] MEDS: Sod Chloride 0.9% Inj 1,000 ML IV.CONT SCH (12:34)
--- NOTE | 2018-06-29 13:40 | P.PNID ---
Subjective Remarks: Patient is a 72-year-old female presented to the hospital complaining of shortness of breath. She has had problem with shortness of breath over the last several months, but it has progressively worsened that she has difficulty ambulating. She gets orthopnea. She occasionally has cough but no phlegm. Denies any chest pain. She admits to some intermittent low-grade fevers. It was also noted that her abdomen has been more distended. On evaluation she was found to have pleural effusions as well as ascites and liver cirrhosis on ultrasound. She also had a CT of the abdomen and pelvis which did not show any lymphadenopathy. She has not been febrile. She has had thoracentesis and they took out 1.2 L of fluid. Paracentesis and they took out 5.7 L of ascites. Since admission she has had leukocytosis of 20,000 and higher. 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 She has not required any treatment for her CLL. Patient currently she has had upper endoscopy. She has had some diarrhea. She is noted increased abdominal girth again. Patient also has had increasing creatinine, and her urine output has been decreasing. Stool for C. difficile is negative. I do not have a urinalysis. Her initial chest x-ray on admission showing a right base infiltrate and effusion. Her last chest x-ray after she has had thoracenteses showed hypoaeration, with no infiltrates seen. Patient has been on Rocephin since admission. Infectious disease consultation has been requested to assist with evaluation and treatment of leukocytosis. Notes reviewed Temps ok WBC lower at 20K C/O abdominal distension Some mild SOB Creatinine rising UA ok Antibiotics: Rocephin Past Medical History: Asthma Diabetes Gout Hypertension Leukemia H/O foot surgery H/O thyroidectomy Allergies/Adverse Reactions: Allergies No Known Allergies Allergy (Verified 06/25/18 05:25) Objective Vital Signs 06/28/18 16:00 06/28/18 20:00 06/29/18 00:00 Temperature 97.4 F L 98.2 F 97.5 F L Pulse Rate 60 60 58 L Respiratory Rate 17 17 16 Blood Pressure 123/55 L 91/51 L 106/66 Pulse Oximetry 97 94 L 92 L 06/29/18 08:00 06/29/18 09:35 06/29/18 12:00 Temperature 97.4 F L 97.8 F Pulse Rate 65 62 Respiratory Rate 18 18 Blood Pressure 123/67 160/81 H Pulse Oximetry 93 L 94 L 96 Intake & Output 06/28/18 06/29/18 06/29/18 18:59 06:59 18:59 Intake Total 1260 / 1260 200 / 200 1100 / 1100 Output Total 150 / 150 500 / 500 Balance 1110 / 1110 -300 / -300 1100 / 1100 Weight 82.1 kg Intake: IV 100 / 100 200 / 200 1100 / 1100 NS Inj 1,000 ML @ 50 mls/hr IV. 1000 / 1000 CONT .Q20H [facility] Rx#:[id number] Flexbumin 25% Inj 100 ML @ 60 200 / 200 mls/hr IV.SIG Q12H [facility] Rx#: [id number] Rocephin Inj 1,000 MG In NS Inj 100 / 100 100 / 100 100 ML @ 200 mls/hr IV.SIG Q24H [facility] Rx#:[id number] Oral 960 / 960 Anesthesia Amount 200 / 200 Output: Urine 150 / 150 500 / 500 Other: # Voids 4 Date of Last Bowel Movement 06/27/18 # Bowel Movements 1 1 06/25/18 17:15 Fluid - Pleural fluid Gram Stain - Final 06/25/18 17:15 Fluid - Pleural fluid Body Fluid Culture - Final No growth in 72 hours (aerobically and anaerobically ) 06/25/18 17:45 Fluid - Peritoneal fluid Gram Stain - Final 06/25/18 17:45 Fluid - Peritoneal fluid Body Fluid Culture - Final No growth in 72 hours (aerobically and anaerobically ) 06/25/18 17:15 Abscess - Chest Acid Fast Bacilli Smear - Final No acid fast bacilli seen 06/25/18 17:15 Abscess - Chest Mycobacterial Culture - Pending 06/25/18 17:45 Fluid - Peritoneal fluid Acid Fast Bacilli Smear - Final No acid fast bacilli seen 06/25/18 17:45 Fluid - Peritoneal fluid Mycobacterial Culture - Pending 06/25/18 19:15 Fluid - Pleural fluid Fungal Smear - Final No fungal elements seen 06/25/18 19:15 Fluid - Pleural fluid Fungal Culture - Pending 06/25/18 17:45 Fluid - Peritoneal fluid Fungal Smear - Final No fungal elements seen 06/25/18 17:45 Fluid - Peritoneal fluid Fungal Culture - Pending Lab - Hematology Results 06/28/18 06/29/18 05:38 06:13 WBC 26.1 H 20.9 H RBC 3.62 L 3.34 L Hgb 10.9 L 10.0 L Hct 32.8 L 30.9 L MCV 90.7 92.6 MCH 30.0 30.1 MCHC 33.1 32.5 RDW 15.1 15.2 Plt Count 201 163 MPV 8.9 9.0 Prelim Diff (Auto) Slide review pending Slide review pending Neut % (Auto) 27.4 30.2 Lymph % (Auto) 65.4 H 62.2 H [place] % (Auto) 4.2 4.1 Eos % (Auto) 2.4 3.0 Baso % (Auto) 0.6 0.5 Neut # (Auto) 7.1 6.3 Lymph # (Auto) 17.1 H 13.0 H [place] # (Auto) 1.1 H 0.9 Eos # (Auto) 0.6 H 0.6 H Baso # (Auto) 0.1 0.1 WBC Differential Manual diff final Manual diff final Seg Neuts % (Manual) 30 26 Band Neuts % (Manual) 4 Lymphocytes % (Manual) 64 H 66 H Monocytes % (Manual) 2 2 Eosinophils % (Manual) 4 1 Basophils % (Manual) 1 Abs Neuts (Manual) 7.8 H 6.3 Differential Comment . . Smudge Cells Present H Present H Platelet Estimate Normal Normal Platelet Morphology Normal Normal Lab - Chemistry Results 06/27/18 06/27/18 06/27/18 06:51 16:06 21:13 Sodium Potassium Chloride Carbon Dioxide Anion Gap BUN Creatinine Estimated GFR POC Glucose 159 H 142 H Random Glucose Calcium Triglycerides 118 Cholesterol 134 LDL Cholesterol, Calc 82 HDL Cholesterol 28.2 L Cholesterol/HDL Ratio 4.75 06/28/18 06/28/18 06/28/18 05:38 17:05 20:36 Sodium 140 Potassium 4.6 Chloride 107 Carbon Dioxide 23.7 Anion Gap 9 BUN 53 H Creatinine 3.61 H Estimated GFR 12 L POC Glucose 139 H 134 H Random Glucose 137 H Calcium 7.5 L Triglycerides Cholesterol LDL Cholesterol, Calc HDL Cholesterol Cholesterol/HDL Ratio 06/29/18 06:13 Sodium 140 Potassium 4.4 Chloride 107 Carbon Dioxide 24.3 Anion Gap 9 BUN 61 H Creatinine 3.82 H Estimated GFR 12 L POC Glucose Random Glucose 100 Calcium 8.0 L Triglycerides Cholesterol LDL Cholesterol, Calc HDL Cholesterol Cholesterol/HDL Ratio Imaging: ITS Impressions Abdomen Ultrasound 06/25/18 00:00 CONCLUSION: 1. Moderate ascites 2. Hepatic cirrhosis Abdomen/Pelvis CT 06/25/18 00:00 CONCLUSION: 1. Suspected cirrhotic liver. 2. Mild to moderate amount of ascites. 3. Bilateral pleural effusions being mild on the right and minimal on the left. 4. Increased density at the inferior right middle lobe and right lower lobe likely related to consolidation or atelectasis. 5. Anasarca 6. Tiny nonobstructing left renal stone. Chest Ultrasound 06/25/18 00:00 CONCLUSION: 1. Large right pleural effusion without appreciable loculation. Paracentesis Ultrasound 06/25/18 00:00 CONCLUSION: 1. Uncomplicated paracentesis. A suture was placed to gain hemostasis secondary to a small cutaneous venous bleed. This suture can be removed in 2-3 days. Thoracentesis Ultrasound 06/25/18 00:00 CONCLUSION: 1. Uncomplicated right thoracentesis. Head CT 06/25/18 06:47 CONCLUSION: 1. Stable evaluation of the head. 2. No evidence of acute infarct, hemorrhage, mass or edema. . Chest X-Ray 06/28/18 10:46 CONCLUSION: Hypoaerated lungs. No evidence of significant airspace disease or congestion. Physical Exam: GENERAL: awake and alert, not in respiratory distress. SKIN: Cool and dry. No generalized rash. HEAD: Atraumatic. Normocephalic. No temporal wasting, or tenderness. EYES: [place] conjunctiva. No petechia or hemorrhage. No scleral icterus. No injection or drainage. EARS, NOSE AND THROAT: Mucous membranes pink and moist. No oral lesions noted. No exudate. No oral thrush. NECK: Trachea midline. Supple and not tender, no meningeal signs CARDIOVASCULAR: Regular rate and rhythm. No murmurs, rubs or gallops heard RESPIRATORY: Decreased breath sounds at bases, has few scattered wheezing ABDOMEN: Globular, non-tender, more distended compared to yesterday. Bowel sounds present and normoactive. No guarding. No rebound. No organomegaly. EXTREMITIES: No clubbing, cyanosis. Has mild pedal edema. No calf tenderness. NEUROLOGICAL: Grossly non-focal. PSYCHIATRIC: Normal affect, calm and cooperative. LINE: No evidence of infection Assessment and Plan - Plan Impression Leukocytosis, etiology? - no obvious source of infection - CXR now clear after tap - no UA, no complaints - C diff negative - ?part of her CLL, has lymphocyte predominance on manual diff Eligio effusions and ascites, etiology? Known CLL, stage 0 Renal failure, creatinine rising Recommendation Follow CBC On Rocephin, and will continue for now Consider getting evaluation by Dr Flores Monitor progress
[2018-06-29] MEDS ORDERED: Albumin Human 25% Inj 150 ML IV.SIG ONE (16:00)
--- NOTE | 2018-06-29 16:33 | US ---
EXAM DATE: 06/29/2018 3:42 PM EST AGE/SEX: 72 years / Female INDICATIONS: Ascites. CLINICAL DATA: This is the patient's subsequent encounter. Patient reports that signs and symptoms h ave been present for 4 - 6 days and indicates a pain score of 4/10. MEDICAL/SURGICAL HISTORY: Asthma. Diabetes. Hypertension. Gout. Leukemia. . Foot surgery. Thyroidectomy. Paracentesis. Thoracentesis. COMPARISON: [facility] [place] & PELVIS W/O CONTRAST, 06/25/2018. . FLUID: Total volume of 5,900 cc of clear, red fluid was removed. Fluid was discarded. Paracentesis was thera peutic only. . . TECHNIQUE: Ultrasound guidance for abdominal paracentesis. Paracentesis. The risks, benefits, and alternatives to ultrasound guided paracentesis were explained to the patient in detail including the risk of bleeding and infection. Written and verbal informed consent was obt ained. With the patient on the ultrasound table, ultrasound imaging was used to select the most appropriate approach for paracentesis. Overlying skin was prepped and draped in the usual sterile fashion and wi th a local anesthetic, a dermatotomy was made with an 11 blade scalpel. A 6 Afghan [id number] ca theter was introduced into the peritoneal cavity and fluid was collected. Post procedure scanning reveals no hematoma or other complication. The patient tolerated the procedu re well and left the ultrasound suite in stable condition. FINDINGS: Adequate fluid for paracentesis. CONCLUSION: 1. Uncomplicated paracentesis. Electronically signed by: Lambert Aponte MD 06/29/2018 4:31 PM EST
--- NOTE | 2018-06-29 19:31 | P.PNPL ---
Subjective Interval history: 72 YOWF with br asthma, DM, Rt lung infilt and Pl eff Breathing better no Abd pain no fever Had Paracentesis, 6L fluid removed Feels better Physical Exam Vital signs: Vital Signs 06/28/18 20:00 06/29/18 00:00 06/29/18 08:00 Temperature 98.2 F 97.5 F L 97.4 F L Pulse Rate 60 58 L 65 Respiratory Rate 17 16 18 Blood Pressure 91/51 L 106/66 123/67 Pulse Oximetry 94 L 92 L 93 L 06/29/18 09:35 06/29/18 12:00 06/29/18 14:25 Temperature 97.8 F 98.0 F Pulse Rate 62 62 Respiratory Rate 18 18 Blood Pressure 160/81 H 111/67 Pulse Oximetry 94 L 96 96 06/29/18 16:00 Temperature 97.7 F Pulse Rate 60 Respiratory Rate 18 Blood Pressure 104/56 L Pulse Oximetry 97 Intake & Output 06/29/18 06/29/18 06/30/18 06:59 18:59 06:59 Intake Total 200 / 200 2100 / 2100 Output Total 500 / 500 Balance -300 / -300 2099 / 2100 Weight 82.1 kg Intake: IV 200 / 200 1100 / 1100 NS Inj 1,000 ML @ 50 mls/hr IV. 1000 / 1000 CONT .Q20H [facility]ILPI Rx#:[id number] Flexbumin 25% Inj 100 ML @ 60 200 / 200 mls/hr IV.SIG Q12H [facility]ILPI Rx#: [id number] Rocephin Inj 1,000 MG In NS Inj 100 / 100 100 ML @ 200 mls/hr IV.SIG Q24H [facility]ILPI Rx#:[id number] Oral 1000 / 1000 Output: Urine 500 / 500 Other: # Voids 2 Date of Last Bowel Movement 06/28/18 # Bowel Movements 1 0 GENERAL: Elderly WF, NAD SKIN: Warm and dry. HEAD: Normocephalic. EYES: No scleral icterus. No injection or drainage. NECK: Supple, trachea midline. No JVD or lymphadenopathy. CARDIOVASCULAR: Regular rate and rhythm without murmurs, gallops, or rubs. RESPIRATORY: Breath sounds equal bilaterally. No accessory muscle use. GASTROINTESTINAL: Abdomen soft, non-tender, nondistended. MUSCULOSKELETAL: No cyanosis, or edema. BACK: Nontender without obvious deformity. No CVA tenderness. Assessment and Plan - Plan IMPRESSION: 1. Right lung infiltrate. 2. Right pleural effusion. 3. Dyspnea. 4. Diabetes mellitus. 5. Hypertension. 6. Renal insufficiency and chronic kidney disease. PLAN: Cont Abx Supplement 02 Aerosol nebs Heparin 5000 IU SQ q 12 hrs DW pt and her at BS
[2018-06-29 19:50] LABS: Ceruloplasmin 33 mg/dL (18-53)
--- NOTE | 2018-06-29 19:53 | P.PNGI ---
Subjective Interval history: Patient awake and alert laying supine in bed Denies discomfort at this time No reported bleeding Physical Exam Vital signs: Vital Signs 06/28/18 20:00 06/29/18 00:00 06/29/18 08:00 Temperature 98.2 F 97.5 F L 97.4 F L Pulse Rate 60 58 L 65 Respiratory Rate 17 16 18 Blood Pressure 91/51 L 106/66 123/67 Pulse Oximetry 94 L 92 L 93 L 06/29/18 09:35 06/29/18 12:00 06/29/18 14:25 Temperature 97.8 F 98.0 F Pulse Rate 62 62 Respiratory Rate 18 18 Blood Pressure 160/81 H 111/67 Pulse Oximetry 94 L 96 96 06/29/18 16:00 Temperature 97.7 F Pulse Rate 60 Respiratory Rate 18 Blood Pressure 104/56 L Pulse Oximetry 97 Intake & Output 06/29/18 06/29/18 06/30/18 06:59 18:59 06:59 Intake Total 200 / 200 2100 / 2100 Output Total 500 / 500 Balance -300 / -300 2099 / 2100 Weight 82.1 kg Intake: IV 200 / 200 1100 / 1100 NS Inj 1,000 ML @ 50 mls/hr IV. 1000 / 1000 CONT .Q20H [facility] Rx#:[id number] Flexbumin 25% Inj 100 ML @ 60 200 / 200 mls/hr IV.SIG Q12H [facility] Rx#: [id number] Rocephin Inj 1,000 MG In NS Inj 100 / 100 100 ML @ 200 mls/hr IV.SIG Q24H [facility] Rx#:[id number] Oral 1000 / 1000 Output: Urine 500 / 500 Other: # Voids 2 Date of Last Bowel Movement 06/28/18 # Bowel Movements 1 0 - Constitutional no acute distress, chronically ill appearing - Routine HEENT Exam Head: Present: normocephalic - Routine Respiratory Exam Present: CTA bilaterally. Absent: accessory muscle use - Routine Cardiovascular Exam Present: RRR - Routine Abdominal Exam Present: soft, normoactive bowel sounds, distended. Absent: tenderness Comments: Patient post paracentesis with removal of 6 L - Routine Skin Exam Present: dry, warm - Routine Neurological Exam Present: alert, oriented X3 Results - Labs CBC & Chem 7: 06/29/18 06:13 06/29/18 06:13 Laboratory Results - last 24 hr 06/25/18 06/28/18 06/29/18 16:42 20:36 06:13 WBC 20.9 H RBC 3.34 L Hgb 10.0 L Hct 30.9 L MCV 92.6 MCH 30.1 MCHC 32.5 RDW 15.2 Plt Count 163 MPV 9.0 Prelim Diff (Auto) Slide review pending Neut % (Auto) 30.2 Lymph % (Auto) 62.2 H [place] % (Auto) 4.1 Eos % (Auto) 3.0 Baso % (Auto) 0.5 Neut # (Auto) 6.3 Lymph # (Auto) 13.0 H [place] # (Auto) 0.9 Eos # (Auto) 0.6 H Baso # (Auto) 0.1 WBC Differential Manual diff final Seg Neuts % (Manual) 26 Band Neuts % (Manual) 4 Lymphocytes % (Manual) 66 H Monocytes % (Manual) 2 Eosinophils % (Manual) 1 Basophils % (Manual) 1 Abs Neuts (Manual) 6.3 Differential Comment . Smudge Cells Present H Platelet Estimate Normal Platelet Morphology Normal Sodium Potassium Chloride Carbon Dioxide Anion Gap BUN Creatinine Estimated GFR POC Glucose 134 H Random Glucose Calcium Urine Color Urine Clarity Urine pH Ur Specific [place] Urine Protein Urine Glucose (UA) Urine Ketones Urine Occult Blood Urine Nitrate Urine Bilirubin Urine Urobilinogen Ur Leukocyte Esterase Urine RBC Urine WBC Ur Squamous Epith Cells Hyaline Casts Micro UA Comment Ur Microscopic Review Urine Culture Comments Rheumatoid Factor Less than 14 LEIF Screen Negative LEIF Titer ND LEIF Pattern ND SS-A Antibody <1.0 neg SS-B Antibody <1.0 neg Sm ([place]) Antibody <1.0 neg SM/CLINICAL MASSAGE THERAPIST Antibody <1.0 neg Scl-70 Antibody <1.0 neg 06/29/18 06/29/18 06:13 11:30 WBC RBC Hgb Hct MCV MCH MCHC RDW Plt Count MPV Prelim Diff (Auto) Neut % (Auto) Lymph % (Auto) [place] % (Auto) Eos % (Auto) Baso % (Auto) Neut # (Auto) Lymph # (Auto) [place] # (Auto) Eos # (Auto) Baso # (Auto) WBC Differential Seg Neuts % (Manual) Band Neuts % (Manual) Lymphocytes % (Manual) Monocytes % (Manual) Eosinophils % (Manual) Basophils % (Manual) Abs Neuts (Manual) Differential Comment Smudge Cells Platelet Estimate Platelet Morphology Sodium 140 Potassium 4.4 Chloride 107 Carbon Dioxide 24.3 Anion Gap 9 BUN 61 H Creatinine 3.82 H Estimated GFR 12 L POC Glucose Random Glucose 100 Calcium 8.0 L Urine Color Yellow Urine Clarity Clear Urine pH 5.0 Ur Specific [place] 1.011 Urine Protein 30 H Urine Glucose (UA) Negative Urine Ketones Negative Urine Occult Blood Negative Urine Nitrate Negative Urine Bilirubin Negative Urine Urobilinogen Less than 2 Ur Leukocyte Esterase Negative Urine RBC Less than 1 Urine WBC 2 Ur Squamous Epith Cells 3 Hyaline Casts 14 Micro UA Comment Culture not ind Ur Microscopic Review Not Reportable Urine Culture Comments Culture not ind Rheumatoid Factor LEIF Screen LEIF Titer LEIF Pattern SS-A Antibody SS-B Antibody Sm ([place]) Antibody SM/CLINICAL MASSAGE THERAPIST Antibody Scl-70 Antibody - Imaging Impressions Paracentesis Ultrasound 06/29/18 00:00 CONCLUSION: 1. Uncomplicated paracentesis. Assessment and Plan - Plan This is a 72-year-old obese female who had been in her usual state of health up until the past 3 months she noticed her abdomen beginning to become distended and noted some diffuse abdominal discomfort which has continued to worsen over this period of time patient came into the hospital on 06/25/2018 with shortness of breath and was getting to the point that she could hardly walk. She also notes that she is been sleeping on pillows and has noted some generalized weakness, fatigue, and low-grade fever off and on, nausea and no vomiting. Patient denies any previous history of any liver disease notes EGD and colonoscopy done years ago unknown timing or event but thinks it may have been with the [facility]. Patient is a poor historian. Patient denies any rectal bleeding or hematemesis but has noted increased lower extremity edema also worsening over the past 2-3 months. Gastroenterology has been consulted to assist in this patient's care and control of her symptoms. Ultrasound done this admission did note moderate ascites and cirrhotic liver. Chest x-ray showed small to moderate pleural effusions. Labs reviewed which shows a hemoglobin 11.6, WBC 20.7, PT/INR 1.1, bilirubin 0.8, AST 41 mildly elevated and ALT 21, alkaline phosphatase 211. Patient notes only minimal social alcohol intake not even on a monthly basis and no previous history of tobacco use. Liver cirrhosis, unknown to patient so this appears to be a new diagnosis. Patient will need liver workup and AFP and CA-19-9 to evaluate for any metastasis. Liver ultrasound does show moderate ascites and cirrhotic liver Transaminitis mild AST 41 normal bilirubin and normal ALT, alkaline phosphatase 211. Minimal EtOH only on occasional rare social living Abdominal pain and distention probably related to #1. Recommend the need to consider paracentesis per IR, possible Wednesday Nausea but no vomiting 06/27/2018 New-onset ascites, cirrhosis -06/25/2018 thoracentesis ultrasound revealed the following--. Uncomplicated right thoracentesis. -06/25/2018 paracentesis--Total volume of 5700 cc of clear, yellow fluid was removed. Fluid was sent to lab for ordered studies. -WBC 22.1 hemoglobin 11.2 hematocrit 33.8 platelet count 210 -Triglycerides 118 cholesterol 134 LDL 82 HDL 28.2 cholesterol/HDL ratio 4.75 -Alpha-fetoprotein 1.8 CA 199 antigen 15.2 ,serum immunology pending -06/25/2018 CT abdomen and pelvis 1. Suspected cirrhotic liver. 2. Mild to moderate amount of ascites. 3. Bilateral pleural effusions being mild on the right and minimal on the left. 4. Increased density at the inferior right middle lobe and right lower lobe likely related to consolidation or atelectasis. 5. Anasarca 6. Tiny nonobstructing left renal stone. 06/29/2018 New onset ascites, cirrhosis 06/29/2018 paracentesis ultrasound--Total volume of 5,900 cc of clear, red fluid was removed. Fluid was discarded. Paracentesis was therapeutic only. 06/28/2018 post EGD-- 1. There was LA Class B esophagitis noted 2. Single ulcer ranging between 3-7mm in size was found in the distal esophagus 3. Portal hypertensive gastropathy was found in the entire examined stomach 4. There was mild gastritis in the gastric antrum 5. Normal duodenal mucosa in the entire duodenum 6. Retroflexed views revealed a hiatal hernia WBC 20.9 trending down hemoglobin 10.0 hematocrit 30.9 Plan diet as per attending PPI Bowel regimen Small dose of Lasix and Aldactone recommended May also consider adding Midodrine Supportive care Further recommendations to follow This patient has been seen by myself and Dr. Del Real and this note is written on his behalf - Attending Attestation Dr. Del Real
[2018-06-30 03:52] LABS: DS DNA Ab (Crithidia) NEGATIVE (NEGATIVE)
[2018-06-30] MEDS: Albumin Human 25% Inj 100 ML IV.SIG SCH ×3 (05:21→18:13)
[2018-06-30] MEDS: Insulin NovoLOG Aspart Correctional Sugar Inj SQ SCH ×4 (08:11→21:08)
[2018-06-30 08:23] LABS: Baso # (Auto) 0.1 th/mm3 (0.0-0.2); Baso % (Auto) 0.6 % (0.0-2.0); Eos # (Auto) 0.5 th/mm3 (0.0-0.4); Eos % (Auto) 3.3 % (0.0-4.0); Hematocrit 27.4 % (35.0-46.0); Lymph # (Auto) 8.3 th/mm3 (1.0-4.8); Lymph % (Auto) 60.1 % (9.0-44.0); Mean Corpuscular Hemoglobin 30.3 pg (27.0-34.0); Mean Corpuscular Volume 91.9 fL (80.0-100.0); Mono # (Auto) 0.7 th/mm3 (0.0-0.9); Neut # (Auto) 4.3 th/mm3 (1.8-7.7); Platelet Count 145 th/mm3 (150-450); Red Blood Count 2.98 mil/mm3 (4.00-5.30); Red Cell Distribution Width 15.3 % (11.6-17.2); White Blood Count 13.9 th/mm3 (4.0-11.0)
[2018-06-30 08:53] LABS: Calcium 7.5 mg/dL (8.5-10.1); Carbon Dioxide 25.5 meq/L (21.0-32.0); Potassium 4.4 meq/L (3.5-5.1)
[2018-06-30 09:48] LABS: Eosinophils 2 % (0-4); Monocytes 2 % (0-8)
[2018-06-30 09:49] LABS: Lymphocytes 67 % (9-44); Platelet Morphology Normal (Normal)
[2018-06-30 09:50] LABS: RBC Morphology Normal (Normal)
[2018-06-30] MEDS: Nadolol 20 MG Tablet PO SCH (10:30)
--- NOTE | 2018-06-30 12:06 | P.PNIM ---
Subjective Interval history: f/u; ascites with mild distress but overall looks better than yesterday. sob has improved to some extent. no fever. abdomen distended but better. Physical Exam Vital signs: Last Vital Signs Temp 98.4 F 06/30/18 00:00 Pulse 68 06/30/18 00:00 Resp 20 06/30/18 00:00 BP 92/59 L 06/30/18 00:00 Pulse Ox 94 L 06/30/18 00:00 Intake & Output 06/28/18 06/29/18 06/30/18 07/01/18 06:59 06:59 06:59 06:59 Intake Total 700 / 700 1460 / 1460 2470 / 2470 100 / 100 Output Total 500 / 500 650 / 650 Balance 200 / 200 810 / 810 2470 / 2470 100 / 100 Weight 81.6 kg 82.1 kg 77.3 kg Constitutional mild distress Routine Respiratory Exam Present CTA bilaterally Routine Cardiovascular Exam Present RRR Routine Abdominal Exam Present soft and distended Comments: distention is better than yesterday. Routine Extremities Exam Present edema Comments: has improved. Routine Neurological Exam Present alert and oriented X3 Results Labs CBC & Chem 7: 06/30/18 07:32 06/30/18 07:52 Imaging Imaging: Impressions Paracentesis Ultrasound 06/29/18 00:00 CONCLUSION: 1. Uncomplicated paracentesis. Assessment and Plan Plan A/P - sepsis ( leukocytosis/ tachycardia) due to pneumonia; continue with IV antibiotics- cultures negative so far. -pneumonia/ right pleural effusion; Abx as noted above-cultures negative so far - neb treatments. s/p thoracentesis- cultures negative so far. ID consult appreciated. echo with EF 55%. echo was d/w ;mobile density reported on the echo probably is not significant clinically. pulmonary following. -abdominal distention/ ascites; s/p paracentesis- hepatitis panel negative- diuretics stopped due to SIERRA- GI following. will consider reconsulting IR for repeated paracentesis. -esophageal ulcer/ gastritis; continue PPI- GI following. -leukocytosis- no fever and no obvious source for infection so far- will consult Oncology in light of history of CLL. -fall/ generalized weakness; consulted PT. -diabetes mellitus; started on accu-check with SSI -acute kidney injury superimposed on chronic renal insufficiency; possible hepatorenal syndrome-diuretics discontinued. nephrology following; will consider HD if no improvement in kidney function. -DVT prophylaxis with subq heparin palliative care following. Discharge Planning: pending clinical course. Progress Note: Quality VTE Deep Vein Thrombosis/Pulmonary Embolism Present on Admission: No
--- NOTE | 2018-06-30 12:10 | P.PNNP ---
Subjective Interval history: Patient was seen, no distress, on O2 nasal cannula. s/p paracentesis, 5.9 L removed. Renal function is stable today. Sandostatin and Proamatine ordered today. <Des Arora - Last Filed: 06/30/18 11:59> Physical Exam Vital signs: Vital Signs 06/29/18 12:00 06/29/18 14:25 06/29/18 16:00 Temperature 97.8 F 98.0 F 97.7 F Pulse Rate 62 62 60 Respiratory Rate 18 18 18 Blood Pressure 160/81 H 111/67 104/56 L Pulse Oximetry 96 96 97 06/29/18 20:00 06/30/18 00:00 Temperature 98.1 F 98.4 F Pulse Rate 61 68 Respiratory Rate 20 20 Blood Pressure 100/57 L 92/59 L Pulse Oximetry 91 L 94 L Intake & Output 06/29/18 06/30/18 06/30/18 18:59 06:59 18:59 Intake Total 2099 / 2100 370 / 370 100 / 100 Balance 2100 / 2100 370 / 370 100 / 100 Weight 77.3 kg Intake: IV 1100 / 1100 250 / 250 100 / 100 NS Inj 1,000 ML @ 50 mls/hr IV. 1000 / 1000 CONT .Q20H [facility] Rx#:[id number] Flexbumin 25% Inj 150 ML @ 60 150 / 150 mls/hr IV.SIG ONCE ONE Rx#: [id number] Flexbumin 25% Inj 100 ML @ 60 100 / 100 100 / 100 mls/hr IV.SIG Q12H [facility] Rx#: [id number] Rocephin Inj 1,000 MG In NS Inj 100 / 100 100 ML @ 200 mls/hr IV.SIG Q24H [facility] Rx#:[id number] Oral 1000 / 1000 120 / 120 Other: # Voids 2 2 Date of Last Bowel Movement 06/28/18 06/28/18 # Bowel Movements 0 1 - Constitutional no acute distress - Routine HEENT Exam Head: Present: normocephalic Eye: Present: EOMI, PERRL ENT: Present: mucous membranes moist - Routine Neck Exam Present: trachea midline. Absent: tracheal deviation - Routine Cardiovascular Exam Present: RRR - Routine Abdominal Exam Present: distended - Routine Extremities Exam Absent: edema - Routine Neurological Exam Present: alert, oriented X3 - Routine Psychiatric Exam Present: normal affect <Des Arora - Last Filed: 06/30/18 11:59> Vital signs: Vital Signs 06/30/18 00:00 06/30/18 08:00 06/30/18 12:00 Temperature 98.4 F 97.8 F 97.9 F Pulse Rate 68 62 62 Respiratory Rate 20 16 18 Blood Pressure 92/59 L 101/51 L 102/55 L Pulse Oximetry 94 L 96 99 06/30/18 16:00 06/30/18 17:55 Temperature 98.3 F Pulse Rate 68 Respiratory Rate 16 Blood Pressure 127/58 L Pulse Oximetry 95 95 Intake & Output 06/30/18 06/30/18 07/01/18 06:59 18:59 06:59 Intake Total 370 / 370 2900 / 2900 100 / 100 Output Total 400 / 400 Balance 370 / 370 2500 / 2500 100 / 100 Weight 77.3 kg Intake: IV 250 / 250 1300 / 1300 100 / 100 NS Inj 1,000 ML @ 50 mls/hr IV. 1000 / 1000 CONT .Q20H [facility] Rx#:[id number] Flexbumin 25% Inj 150 ML @ 60 150 / 150 mls/hr IV.SIG ONCE ONE Rx#: [id number] Flexbumin 25% Inj 100 ML @ 60 100 / 100 200 / 200 100 / 100 mls/hr IV.SIG Q8H [facility] Rx#: [id number] Rocephin Inj 1,000 MG In NS Inj 100 / 100 100 ML @ 200 mls/hr IV.SIG Q24H [facility] Rx#:[id number] Oral 120 / 120 1600 / 1600 Output: Urine 400 / 400 Other: # Voids 2 Date of Last Bowel Movement 06/28/18 # Bowel Movements 1 1 <Papi Busby - Last Filed: 06/30/18 21:53> Assessment and Plan - Assessment (1) Acute on chronic kidney failure Code(s): N17.9 - Acute kidney failure, unspecified; N18.9 - Chronic kidney disease, unspecified Status: Acute Plan: Could be secondary to hypotension and renal hypoperfusion. Possibility of hepatorenal syndrome should be considered. Urine sodium and urine creatinine ordered but have not been collected. Renal function is stable today. Hospice and comfort care discussed with patient yesterday. Monitor fluid and electrolytes. Avoid Nephrotoxic agents. (2) Pneumonia Code(s): J18.9 - Pneumonia, unspecified organism Status: Acute Qualifiers: Pneumonia type: due to unspecified organism Laterality: right Lung location: middle lobe of lung Qualified Code(s): J18.1 - Lobar pneumonia, unspecified organism Plan: Patient is on Ceftriaxone. s/p thoracentesis. (3) Diabetes Code(s): E11.9 - Type 2 diabetes mellitus without complications Status: Acute Plan: Insulin coverage to maintain glucose levels between 140 and 180. (4) Abdominal distension Code(s): R14.0 - Abdominal distension (gaseous) Status: Acute Plan: s/p paracentesis, 5.9 L removed yesterday. <Des Arora - Last Filed: 06/30/18 11:59> - Assessment (1) Acute on chronic kidney failure Code(s): N17.9 - Acute kidney failure, unspecified; N18.9 - Chronic kidney disease, unspecified Status: Acute (2) Pneumonia Code(s): J18.9 - Pneumonia, unspecified organism Status: Acute Qualifiers: Pneumonia type: due to unspecified organism Laterality: right Lung location: middle lobe of lung Qualified Code(s): J18.1 - Lobar pneumonia, unspecified organism (3) Diabetes Code(s): E11.9 - Type 2 diabetes mellitus without complications Status: Acute (4) Abdominal distension Code(s): R14.0 - Abdominal distension (gaseous) Status: Acute - Attending Attestation patient was seen and examined. Poor prognosis. I have ordered midodrine and Octreotide. Continue Albumin. Suggest hospice if renal function worsens unless she is a transplant candidate. <Papi Busby - Last Filed: 06/30/18 21:53>
--- NOTE | 2018-06-30 12:59 | P.PNID ---
Subjective Remarks: Patient is a 72-year-old female presented to the hospital complaining of shortness of breath. She has had problem with shortness of breath over the last several months, but it has progressively worsened that she has difficulty ambulating. She gets orthopnea. She occasionally has cough but no phlegm. Denies any chest pain. She admits to some intermittent low-grade fevers. It was also noted that her abdomen has been more distended. On evaluation she was found to have pleural effusions as well as ascites and liver cirrhosis on ultrasound. She also had a CT of the abdomen and pelvis which did not show any lymphadenopathy. She has not been febrile. She has had thoracentesis and they took out 1.2 L of fluid. Paracentesis and they took out 5.7 L of ascites. Since admission she has had leukocytosis of 20,000 and higher. 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 She has not required any treatment for her CLL. Patient currently she has had upper endoscopy. She has had some diarrhea. She is noted increased abdominal girth again. Patient also has had increasing creatinine, and her urine output has been decreasing. Stool for C. difficile is negative. I do not have a urinalysis. Her initial chest x-ray on admission showing a right base infiltrate and effusion. Her last chest x-ray after she has had thoracenteses showed hypoaeration, with no infiltrates seen. Patient has been on Rocephin since admission. Infectious disease consultation has been requested to assist with evaluation and treatment of leukocytosis. Notes reviewed Temps ok WBC lower Had paracentesis yesteday - took out 5.9KL Some mild SOB Creatinine rising UA ok Antibiotics: Rocephin Past Medical History: Asthma Diabetes Gout Hypertension Leukemia H/O foot surgery H/O thyroidectomy Allergies/Adverse Reactions: Allergies No Known Allergies Allergy (Verified 06/25/18 05:25) Objective Vital Signs 06/29/18 14:25 06/29/18 16:00 06/29/18 20:00 Temperature 98.0 F 97.7 F 98.1 F Pulse Rate 62 60 61 Respiratory Rate 18 18 20 Blood Pressure 111/67 104/56 L 100/57 L Pulse Oximetry 96 97 91 L 06/30/18 00:00 Temperature 98.4 F Pulse Rate 68 Respiratory Rate 20 Blood Pressure 92/59 L Pulse Oximetry 94 L Intake & Output 06/29/18 06/30/18 06/30/18 18:59 06:59 18:59 Intake Total 2099 370 / 370 200 / 200 Balance 2099 370 / 370 200 / 200 Weight 77.3 kg Intake: IV 1100 / 1100 250 / 250 200 / 200 NS Inj 1,000 ML @ 50 mls/hr IV. 1000 / 1000 CONT .Q20H [facility] Rx#:[id number] Flexbumin 25% Inj 150 ML @ 60 150 / 150 mls/hr IV.SIG ONCE ONE Rx#: [id number] Flexbumin 25% Inj 100 ML @ 60 100 / 100 100 / 100 mls/hr IV.SIG Q12H [facility] Rx#: [id number] Rocephin Inj 1,000 MG In NS Inj 100 / 100 100 / 100 100 ML @ 200 mls/hr IV.SIG Q24H [facility] Rx#:[id number] Oral 1000 / 1000 120 / 120 Other: # Voids 2 2 Date of Last Bowel Movement 06/28/18 06/28/18 # Bowel Movements 0 1 06/25/18 17:15 Fluid - Pleural fluid Gram Stain - Final 06/25/18 17:15 Fluid - Pleural fluid Body Fluid Culture - Final No growth in 72 hours (aerobically and anaerobically ) 06/25/18 17:45 Fluid - Peritoneal fluid Gram Stain - Final 06/25/18 17:45 Fluid - Peritoneal fluid Body Fluid Culture - Final No growth in 72 hours (aerobically and anaerobically ) 06/25/18 17:15 Abscess - Chest Acid Fast Bacilli Smear - Final No acid fast bacilli seen 06/25/18 17:15 Abscess - Chest Mycobacterial Culture - Pending 06/25/18 17:45 Fluid - Peritoneal fluid Acid Fast Bacilli Smear - Final No acid fast bacilli seen 06/25/18 17:45 Fluid - Peritoneal fluid Mycobacterial Culture - Pending Lab - Hematology Results 06/29/18 06/30/18 06:13 07:32 WBC 20.9 H 13.9 H RBC 3.34 L 2.98 L Hgb 10.0 L 9.0 L Hct 30.9 L 27.4 L MCV 92.6 91.9 MCH 30.1 30.3 MCHC 32.5 33.0 RDW 15.2 15.3 Plt Count 163 145 L MPV 9.0 9.0 Prelim Diff (Auto) Slide review pending Slide review pending Neut % (Auto) 30.2 31.0 Lymph % (Auto) 62.2 H 60.1 H [place] % (Auto) 4.1 5.0 Eos % (Auto) 3.0 3.3 Baso % (Auto) 0.5 0.6 Neut # (Auto) 6.3 4.3 Lymph # (Auto) 13.0 H 8.3 H [place] # (Auto) 0.9 0.7 Eos # (Auto) 0.6 H 0.5 H Baso # (Auto) 0.1 0.1 WBC Differential Manual diff final Manual diff final Seg Neuts % (Manual) 26 27 Band Neuts % (Manual) 4 2 Lymphocytes % (Manual) 66 H 67 H Monocytes % (Manual) 2 2 Eosinophils % (Manual) 1 2 Basophils % (Manual) 1 Abs Neuts (Manual) 6.3 4.0 Differential Comment . . Smudge Cells Present H Platelet Estimate Normal Low L Platelet Morphology Normal Normal RBC Morphology Normal Lab - Chemistry Results 06/25/18 06/28/18 06/28/18 16:42 17:05 20:36 Sodium Potassium Chloride Carbon Dioxide Anion Gap BUN Creatinine Estimated GFR POC Glucose 139 H 134 H Random Glucose Calcium Ceruloplasmin 33 06/29/18 06/29/18 06/30/18 06:13 21:01 07:52 Sodium 140 141 Potassium 4.4 4.4 Chloride 107 108 H Carbon Dioxide 24.3 25.5 Anion Gap 9 8 BUN 61 H 62 H Creatinine 3.82 H 3.73 H Estimated GFR 12 L 12 L POC Glucose 156 H Random Glucose 100 117 H Calcium 8.0 L 7.5 L Ceruloplasmin 06/30/18 06/30/18 08:07 11:53 Sodium Potassium Chloride Carbon Dioxide Anion Gap BUN Creatinine Estimated GFR POC Glucose 122 H 140 H Random Glucose Calcium Ceruloplasmin Imaging: ITS Impressions Abdomen Ultrasound 06/25/18 00:00 CONCLUSION: 1. Moderate ascites 2. Hepatic cirrhosis Abdomen/Pelvis CT 06/25/18 00:00 CONCLUSION: 1. Suspected cirrhotic liver. 2. Mild to moderate amount of ascites. 3. Bilateral pleural effusions being mild on the right and minimal on the left. 4. Increased density at the inferior right middle lobe and right lower lobe likely related to consolidation or atelectasis. 5. Anasarca 6. Tiny nonobstructing left renal stone. Chest Ultrasound 06/25/18 00:00 CONCLUSION: 1. Large right pleural effusion without appreciable loculation. Thoracentesis Ultrasound 06/25/18 00:00 CONCLUSION: 1. Uncomplicated right thoracentesis. Head CT 06/25/18 06:47 CONCLUSION: 1. Stable evaluation of the head. 2. No evidence of acute infarct, hemorrhage, mass or edema. . Chest X-Ray 06/28/18 10:46 CONCLUSION: Hypoaerated lungs. No evidence of significant airspace disease or congestion. Paracentesis Ultrasound 06/29/18 00:00 CONCLUSION: 1. Uncomplicated paracentesis. Physical Exam: GENERAL: awake and alert, not in respiratory distress. SKIN: Cool and dry. No generalized rash. HEAD: Atraumatic. Normocephalic. No temporal wasting, or tenderness. EYES: [place] conjunctiva. No petechia or hemorrhage. No scleral icterus. No injection or drainage. EARS, NOSE AND THROAT: Mucous membranes pink and moist. No oral lesions noted. No exudate. No oral thrush. NECK: Trachea midline. Supple and not tender, no meningeal signs CARDIOVASCULAR: Regular rate and rhythm. No murmurs, rubs or gallops heard RESPIRATORY: Decreased breath sounds at bases, has few scattered wheezing ABDOMEN: Globular, non-tender, softer. Bowel sounds present and normoactive. No guarding. No rebound. No organomegaly. EXTREMITIES: No clubbing, cyanosis. Has mild pedal edema. No calf tenderness. NEUROLOGICAL: Grossly non-focal. PSYCHIATRIC: Normal affect, calm and cooperative. LINE: No evidence of infection Assessment and Plan - Plan Impression Leukocytosis, etiology? - ?reactive - no obvious source of infection - CXR now clear after tap - no UA, no complaints - C diff negative - ?part of her CLL, has lymphocyte predominance on manual diff Eligio effusions and ascites, etiology? Known CLL, stage 0 Renal failure, creatinine rising Recommendation Follow CBC - if stable, consider stopping Abx tomorrow On Rocephin, and will continue for now Monitor progress
[2018-06-30] MEDS: Octreotide Inj 50 MCG/ML Vial IV.PUSH SCH ×2 (17:11→21:10)
[2018-06-30] MEDS: Sod Chloride 0.9% Inj 1,000 ML IV.CONT SCH ×2 (17:15→21:11)
--- NOTE | 2018-06-30 17:23 | P.CON ---
History of Present Illness Service: oncology Consult date: 06/30/18 Reason for Consult: CLL Primary Care Provider: UNKNOWN Chief Complaint: shortness of breath History of Present Illness: Ms. Lima is a 72 year old lady with a history of CLL with deletion 13q, CHRISTINE stage 0 who follows in outpatient clinic for CLL. She was admitted to the hospital in 06/2018 with abdominal distention, discomfort, shortness of breath, bilateral lower extremity swelling. Gi team consulted and found to have a new diagnosis of liver cirrhosis. She is s/p thoracentesis and paracentesis with improvement in symtpoms. GI team following. Considering shunt procedure. Baseline WBC in the past 1-2 years has been in the mid teens. Hemoglobin and platelet count have been normal. She does not have any LAD, splenomegaly. She reports mild improvement of symptoms from hosptial admission. Review of Systems Abdominal pain, distension Improvment in BLE swelling all others negative. PMFSH - History History Provided By: Medical Record - Medical History Medical History: Medical History (Last Updated 06/29/18 @ 14:13 by Leo Setinberg) Hypertension (Acute) Arthritis Asthma Chronic lymphoid leukemia Diabetes mellitus Fatty liver Gout Hypertension Kidney disease Thyroid disease - Surgical History Surgical History: Surgical History (Last Updated 06/29/18 @ 12:01 by Leo Steinberg) H/O Achilles tendon repair H/O foot surgery H/O thyroidectomy History of back surgery History of colonoscopy - Family History Family History: Family History (Last Updated 06/29/18 @ 12:02 by Leo Steinberg) Mother Breast cancer Stroke Father Motor vehicle accident Sister Spina bifida Other No pertinent family history - Tobacco History Second Hand Smoke Exposure: No Smoking Status: Never smoker - Alcohol History How Often Do You Have a Drink Containing Alcohol: Monthly or less - Substance Use History Substance History: No History of Abuse - Travel History Recent Travel in the [place] Within the Last 8 Weeks: No Recent Travel Out of the Country Within the Last 8 Weeks: No - Immunization History Tetanus Immunization: Unsure Hx Influenza Vaccine This Season: Yes Medications and Allergies Active Medications: Active Medications Albuterol (Albuterol Neb (Prn)) 1.25 mg NEB Q2HR NEB PRN PRN Reason: sob Dextrose (D50w Vial) 50 ml IV.PUSH UNSCH PRN PRN Reason: PER HYPOGLYCEMIA PROTOCOL Glucagon (Glucagon Inj) 1 mg OTHER PRN PRN PRN Reason: for Hypoglycemia Protocol Heparin Sodium (Porcine) (Heparin Inj) 5,000 units SQ Q12HR [facility] Ceftriaxone Sodium 1,000 mg/ (Sodium Chloride) 100 mls @ 200 mls/hr IV.SIG Q24H [facility] Last Infusion: 06/30/18 12:10 Dose: Infused Sodium Chloride (Ns Inj) 500 mls @ 30 mls/hr IV.SIG .Q10H [facility] Last Admin: 06/28/18 17:12 Dose: Not Given Sodium Chloride (Ns Inj) 1,000 mls @ 50 mls/hr IV.CONT .Q20H [facility] Last Admin: 06/29/18 12:34 Dose: 50 mls/hr Albumin Human (Flexbumin 25% Inj) 100 mls @ 60 mls/hr IV.SIG Q8H [facility] Last Infusion: 06/30/18 13:53 Dose: Infused Insulin Aspart (Novolog Insulin Correctional Sugar Inj) 0 unit SQ ACHS [facility]; Protocol Last Admin: 06/30/18 12:10 Dose: Not Given Midodrine (Proamatine) 10 mg PO TID@0700,1200,1700 [facility] Last Admin: 06/30/18 12:19 Dose: 10 mg Nadolol (Corgard) 20 mg PO DAILY [facility] Last Admin: 06/30/18 10:30 Dose: 20 mg Octreotide Acetate (Sandostatin Inj) 50 mcg IV.PUSH Q8HR [facility] Pantoprazole Sodium (Protonix) 40 mg PO DAILY [facility] Last Admin: 06/30/18 10:30 Dose: 40 mg Sodium Chloride (Ns Flush) 2 ml IV.FLUSH PRN PRN PRN Reason: FLUSH AFTER USING IV ACCESS Sodium Chloride (Ns Flush) 2 ml IV.FLUSH BID [facility] Last Admin: 06/30/18 10:30 Dose: 2 ml Allergies Allergy/AdvReac Type Severity Reaction Status Date / Time No Known Allergies Allergy Verified 06/25/18 05:25 Home Medications Medication Instructions Recorded Confirmed Type Multi Vitamin PO DAILY 06/25/18 History allopurinol PO DAILY 06/25/18 History glipizide PO DAILY 06/25/18 History levothyroxine 300 mcg PO DAILY 06/25/18 06/25/18 History Physical Exam Vital signs: Vital Signs 06/29/18 20:00 06/30/18 00:00 06/30/18 08:00 Temperature 98.1 F 98.4 F 97.8 F Pulse Rate 61 68 62 Respiratory Rate 20 20 16 Blood Pressure 100/57 L 92/59 L 101/51 L Pulse Oximetry 91 L 94 L 96 06/30/18 12:00 06/30/18 16:00 Temperature 97.9 F 98.3 F Pulse Rate 62 68 Respiratory Rate 18 16 Blood Pressure 102/55 L 127/58 L Pulse Oximetry 99 95 Intake & Output 06/29/18 06/30/18 06/30/18 18:59 06:59 18:59 Intake Total 2099 / 2100 370 / 370 300 / 300 Balance 2099 / 2099 370 / 370 300 / 300 Weight 77.3 kg Intake: IV 1100 / 1100 250 / 250 300 / 300 NS Inj 1,000 ML @ 50 mls/hr IV. 1000 / 1000 CONT .Q20H [facility] Rx#:[id number] Flexbumin 25% Inj 150 ML @ 60 150 / 150 mls/hr IV.SIG ONCE ONE Rx#: [id number] Flexbumin 25% Inj 100 ML @ 60 100 / 100 200 / 200 mls/hr IV.SIG Q8H [facility] Rx#: [id number] Rocephin Inj 1,000 MG In NS Inj 100 / 100 100 / 100 100 ML @ 200 mls/hr IV.SIG Q24H [facility] Rx#:[id number] Oral 1000 / 1000 120 / 120 Other: # Voids 2 2 Date of Last Bowel Movement 06/28/18 06/28/18 # Bowel Movements 0 1 - Constitutional no acute distress - Routine HEENT Exam Head: Present: normocephalic Eye: Present: EOMI, PERRL - Routine Neck Exam Present: supple - Routine Respiratory Exam Present: CTA bilaterally - Routine Cardiovascular Exam Present: RRR - Routine Abdominal Exam Present: normoactive bowel sounds, distended - Routine Extremities Exam Present: edema - Routine Skin Exam Present: intact - Routine Neurological Exam Present: alert, oriented X3 - Routine Psychiatric Exam Present: normal affect Results - Labs CBC & Chem 7: 06/30/18 07:32 06/30/18 07:52 Labs: Laboratory Results - last 24 hr 06/25/18 06/29/18 06/29/18 16:42 11:30 11:30 WBC RBC Hgb Hct MCV MCH MCHC RDW Plt Count MPV Prelim Diff (Auto) Neut % (Auto) Lymph % (Auto) Trigg % (Auto) Eos % (Auto) Baso % (Auto) Neut # (Auto) Lymph # (Auto) Trigg # (Auto) Eos # (Auto) Baso # (Auto) WBC Differential Seg Neuts % (Manual) Band Neuts % (Manual) Lymphocytes % (Manual) Monocytes % (Manual) Eosinophils % (Manual) Abs Neuts (Manual) Differential Comment Platelet Estimate Platelet Morphology RBC Morphology Sodium Potassium Chloride Carbon Dioxide Anion Gap BUN Creatinine Estimated GFR POC Glucose Random Glucose Calcium Ceruloplasmin 33 Ur Random Creatinine 77 Ur Random Sodium 94 Anti-ds DNA Titer (Crith) ND Anti-ds DNA (Crithidia) Negative Mitochondria M2 IgG Ab Less than 20.0 06/29/18 06/30/18 06/30/18 21:01 07:32 07:52 WBC 13.9 H RBC 2.98 L Hgb 9.0 L Hct 27.4 L MCV 91.9 MCH 30.3 MCHC 33.0 RDW 15.3 Plt Count 145 L MPV 9.0 Prelim Diff (Auto) Slide review pending Neut % (Auto) 31.0 Lymph % (Auto) 60.1 H Trigg % (Auto) 5.0 Eos % (Auto) 3.3 Baso % (Auto) 0.6 Neut # (Auto) 4.3 Lymph # (Auto) 8.3 H Trigg # (Auto) 0.7 Eos # (Auto) 0.5 H Baso # (Auto) 0.1 WBC Differential Manual diff final Seg Neuts % (Manual) 27 Band Neuts % (Manual) 2 Lymphocytes % (Manual) 67 H Monocytes % (Manual) 2 Eosinophils % (Manual) 2 Abs Neuts (Manual) 4.0 Differential Comment . Platelet Estimate Low L Platelet Morphology Normal RBC Morphology Normal Sodium 141 Potassium 4.4 Chloride 108 H Carbon Dioxide 25.5 Anion Gap 8 BUN 62 H Creatinine 3.73 H Estimated GFR 12 L POC Glucose 156 H Random Glucose 117 H Calcium 7.5 L Ceruloplasmin Ur Random Creatinine Ur Random Sodium Anti-ds DNA Titer (Crith) Anti-ds DNA (Crithidia) Mitochondria M2 IgG Ab 06/30/18 06/30/18 08:07 11:53 WBC RBC Hgb Hct MCV MCH MCHC RDW Plt Count MPV Prelim Diff (Auto) Neut % (Auto) Lymph % (Auto) Trigg % (Auto) Eos % (Auto) Baso % (Auto) Neut # (Auto) Lymph # (Auto) Trigg # (Auto) Eos # (Auto) Baso # (Auto) WBC Differential Seg Neuts % (Manual) Band Neuts % (Manual) Lymphocytes % (Manual) Monocytes % (Manual) Eosinophils % (Manual) Abs Neuts (Manual) Differential Comment Platelet Estimate Platelet Morphology RBC Morphology Sodium Potassium Chloride Carbon Dioxide Anion Gap BUN Creatinine Estimated GFR POC Glucose 122 H 140 H Random Glucose Calcium Ceruloplasmin Ur Random Creatinine Ur Random Sodium Anti-ds DNA Titer (Crith) Anti-ds DNA (Crithidia) Mitochondria M2 IgG Ab Assessment and Plan - Plan CLL, Christine stage 0 with deletion of 13q. Patient has had this diagnosis for many years and has been treated with observation. Will continue to follow counts. WBC increase while inpatient and decline in hemoglobin during inpatient stay. Multifactorial with other factors contributing to these counts. Continue to trend. No need for current treatment of CLL at this time. Liver cirrhosis: GI team following. Inpatient hematology service will continue to follow.
--- NOTE | 2018-06-30 17:39 | P.PNPL ---
Subjective Interval history: 72 YOWF with br asthma, DM, Rt lung infilt and Pl eff Breathing better no Abd pain no fever Feels better Weaned to RA Physical Exam Vital signs: Vital Signs 06/29/18 20:00 06/30/18 00:00 06/30/18 08:00 Temperature 98.1 F 98.4 F 97.8 F Pulse Rate 61 68 62 Respiratory Rate 20 20 16 Blood Pressure 100/57 L 92/59 L 101/51 L Pulse Oximetry 91 L 94 L 96 06/30/18 12:00 06/30/18 16:00 Temperature 97.9 F 98.3 F Pulse Rate 62 68 Respiratory Rate 18 16 Blood Pressure 102/55 L 127/58 L Pulse Oximetry 99 95 Intake & Output 06/29/18 06/30/18 06/30/18 18:59 06:59 18:59 Intake Total 2100 / 2100 370 / 370 1300 / 1300 Balance 2099 / 2100 370 / 370 1300 / 1300 Weight 77.3 kg Intake: IV 1100 / 1100 250 / 250 1300 / 1300 NS Inj 1,000 ML @ 50 mls/hr IV. 1000 / 1000 1000 / 1000 CONT .Q20H [facility] Rx#:[id number] Flexbumin 25% Inj 150 ML @ 60 150 / 150 mls/hr IV.SIG ONCE ONE Rx#: [id number] Flexbumin 25% Inj 100 ML @ 60 100 / 100 200 / 200 mls/hr IV.SIG Q8H [facility] Rx#: [id number] Rocephin Inj 1,000 MG In NS Inj 100 / 100 100 / 100 100 ML @ 200 mls/hr IV.SIG Q24H [facility] Rx#:[id number] Oral 1000 / 1000 120 / 120 Other: # Voids 2 2 Date of Last Bowel Movement 06/28/18 06/28/18 # Bowel Movements 0 1 GENERAL: Elderly WF,NAD SKIN: Warm and dry. HEAD: Normocephalic. EYES: No scleral icterus. No injection or drainage. NECK: Supple, trachea midline. No JVD or lymphadenopathy. CARDIOVASCULAR: Regular rate and rhythm without murmurs, gallops, or rubs. RESPIRATORY: Breath sounds equal bilaterally. No accessory muscle use. GASTROINTESTINAL: Abdomen soft, non-tender, nondistended. MUSCULOSKELETAL: No cyanosis, or edema. BACK: Nontender without obvious deformity. No CVA tenderness. Assessment and Plan - Plan IMPRESSION: 1. Right lung infiltrate. 2. Right pleural effusion. 3. Dyspnea. 4. Diabetes mellitus. 5. Hypertension. 6. Renal insufficiency and chronic kidney disease. 7. CLL PLAN: Cont Abx per ID Aerosol nebs Heparin 5000 IU SQ q 12 hrs Stable on RA
--- NOTE | 2018-06-30 18:18 | P.PNGI ---
Subjective Interval history: Pt is resting in bed, wants to go home, feels better. Physical Exam Vital signs: Vital Signs 06/29/18 20:00 06/30/18 00:00 06/30/18 08:00 Temperature 98.1 F 98.4 F 97.8 F Pulse Rate 61 68 62 Respiratory Rate 20 20 16 Blood Pressure 100/57 L 92/59 L 101/51 L Pulse Oximetry 91 L 94 L 96 06/30/18 12:00 06/30/18 16:00 06/30/18 17:55 Temperature 97.9 F 98.3 F Pulse Rate 62 68 Respiratory Rate 18 16 Blood Pressure 102/55 L 127/58 L Pulse Oximetry 99 95 95 Intake & Output 06/29/18 06/30/18 06/30/18 18:59 06:59 18:59 Intake Total 2099 / 2100 370 / 370 1300 / 1300 Balance 2099 / 2099 370 / 370 1300 / 1300 Weight 77.3 kg Intake: IV 1100 / 1100 250 / 250 1300 / 1300 NS Inj 1,000 ML @ 50 mls/hr IV. 1000 / 1000 1000 / 1000 CONT .Q20H [facility] Rx#:[id number] Flexbumin 25% Inj 150 ML @ 60 150 / 150 mls/hr IV.SIG ONCE ONE Rx#: [id number] Flexbumin 25% Inj 100 ML @ 60 100 / 100 200 / 200 mls/hr IV.SIG Q8H [facility] Rx#: [id number] Rocephin Inj 1,000 MG In NS Inj 100 / 100 100 / 100 100 ML @ 200 mls/hr IV.SIG Q24H [facility] Rx#:[id number] Oral 1000 / 1000 120 / 120 Other: # Voids 2 2 Date of Last Bowel Movement 06/28/18 06/28/18 # Bowel Movements 0 1 Narrative: Physical examination GENERAL: Patient is a well-nourished, well-developed female, awake and alert , not in respiratory distress. SKIN: Cool and dry. No generalized rash, no ecchymoses and no evidence of embolic lesions. HEAD: Atraumatic. Normocephalic. No temporal wasting, or tenderness. NECK: Trachea midline. Supple and not tender, no meningeal signs CARDIOVASCULAR: Regular rate and rhythm. No murmurs, rubs or gallops heard RESPIRATORY: Decreased breath sounds at bases, has few scattered wheezing ABDOMEN: non-tender, mildly distended. Bowel sounds present and normoactive. No guarding. No rebound. No organomegaly. EXTREMITIES: No clubbing, cyanosis. Has mild pedal edema. No joint effusion , has good ROM. No calf tenderness. Well perfused and warm. NEUROLOGICAL: Awake and alert. Cranial nerves grossly intact. Motor grossly within normal limits. PSYCHIATRIC: Normal affect, calm and cooperative. LINE: No evidence of infection Results - Labs CBC & Chem 7: 06/30/18 07:32 06/30/18 07:52 Laboratory Results - last 24 hr 06/25/18 06/29/18 06/29/18 16:42 11:30 11:30 WBC RBC Hgb Hct MCV MCH MCHC RDW Plt Count MPV Prelim Diff (Auto) Neut % (Auto) Lymph % (Auto) Peach % (Auto) Eos % (Auto) Baso % (Auto) Neut # (Auto) Lymph # (Auto) Peach # (Auto) Eos # (Auto) Baso # (Auto) WBC Differential Seg Neuts % (Manual) Band Neuts % (Manual) Lymphocytes % (Manual) Monocytes % (Manual) Eosinophils % (Manual) Abs Neuts (Manual) Differential Comment Platelet Estimate Platelet Morphology RBC Morphology Sodium Potassium Chloride Carbon Dioxide Anion Gap BUN Creatinine Estimated GFR POC Glucose Random Glucose Calcium Ceruloplasmin 33 Ur Random Creatinine 77 Ur Random Sodium 94 Anti-ds DNA Titer (Crith) ND Anti-ds DNA (Crithidia) Negative Mitochondria M2 IgG Ab Less than 20.0 06/29/18 06/30/18 06/30/18 21:01 07:32 07:52 WBC 13.9 H RBC 2.98 L Hgb 9.0 L Hct 27.4 L MCV 91.9 MCH 30.3 MCHC 33.0 RDW 15.3 Plt Count 145 L MPV 9.0 Prelim Diff (Auto) Slide review pending Neut % (Auto) 31.0 Lymph % (Auto) 60.1 H Peach % (Auto) 5.0 Eos % (Auto) 3.3 Baso % (Auto) 0.6 Neut # (Auto) 4.3 Lymph # (Auto) 8.3 H Peach # (Auto) 0.7 Eos # (Auto) 0.5 H Baso # (Auto) 0.1 WBC Differential Manual diff final Seg Neuts % (Manual) 27 Band Neuts % (Manual) 2 Lymphocytes % (Manual) 67 H Monocytes % (Manual) 2 Eosinophils % (Manual) 2 Abs Neuts (Manual) 4.0 Differential Comment . Platelet Estimate Low L Platelet Morphology Normal RBC Morphology Normal Sodium 141 Potassium 4.4 Chloride 108 H Carbon Dioxide 25.5 Anion Gap 8 BUN 62 H Creatinine 3.73 H Estimated GFR 12 L POC Glucose 156 H Random Glucose 117 H Calcium 7.5 L Ceruloplasmin Ur Random Creatinine Ur Random Sodium Anti-ds DNA Titer (Crith) Anti-ds DNA (Crithidia) Mitochondria M2 IgG Ab 06/30/18 06/30/18 06/30/18 08:07 11:53 17:12 WBC RBC Hgb Hct MCV MCH MCHC RDW Plt Count MPV Prelim Diff (Auto) Neut % (Auto) Lymph % (Auto) Peach % (Auto) Eos % (Auto) Baso % (Auto) Neut # (Auto) Lymph # (Auto) Peach # (Auto) Eos # (Auto) Baso # (Auto) WBC Differential Seg Neuts % (Manual) Band Neuts % (Manual) Lymphocytes % (Manual) Monocytes % (Manual) Eosinophils % (Manual) Abs Neuts (Manual) Differential Comment Platelet Estimate Platelet Morphology RBC Morphology Sodium Potassium Chloride Carbon Dioxide Anion Gap BUN Creatinine Estimated GFR POC Glucose 122 H 140 H 171 H Random Glucose Calcium Ceruloplasmin Ur Random Creatinine Ur Random Sodium Anti-ds DNA Titer (Crith) Anti-ds DNA (Crithidia) Mitochondria M2 IgG Ab Assessment and Plan - Plan This is a 72-year-old obese female who had been in her usual state of health up until the past 3 months she noticed her abdomen beginning to become distended and noted some diffuse abdominal discomfort which has continued to worsen over this period of time patient came into the hospital on 06/25/2018 with shortness of breath and was getting to the point that she could hardly walk. She also notes that she is been sleeping on pillows and has noted some generalized weakness, fatigue, and low-grade fever off and on, nausea and no vomiting. Patient denies any previous history of any liver disease notes EGD and colonoscopy done years ago unknown timing or event but thinks it may have been with the [facility] group. Patient is a poor historian. Patient denies any rectal bleeding or hematemesis but has noted increased lower extremity edema also worsening over the past 2-3 months. Gastroenterology has been consulted to assist in this patient's care and control of her symptoms. Ultrasound done this admission did note moderate ascites and cirrhotic liver. Chest x-ray showed small to moderate pleural effusions. Labs reviewed which shows a hemoglobin 11.6, WBC 20.7, PT/INR 1.1, bilirubin 0.8, AST 41 mildly elevated and ALT 21, alkaline phosphatase 211. Patient notes only minimal social alcohol intake not even on a monthly basis and no previous history of tobacco use. Liver cirrhosis, unknown to patient so this appears to be a new diagnosis. Patient will need liver workup and AFP and CA-19-9 to evaluate for any metastasis. Liver ultrasound does show moderate ascites and cirrhotic liver Transaminitis mild AST 41 normal bilirubin and normal ALT, alkaline phosphatase 211. Minimal EtOH only on occasional rare social living Abdominal pain and distention probably related to #1. Recommend the need to consider paracentesis per IR, possible Wednesday Nausea but no vomiting 06/27/2018 New-onset ascites, cirrhosis -06/25/2018 thoracentesis ultrasound revealed the following--. Uncomplicated right thoracentesis. -06/25/2018 paracentesis--Total volume of 5700 cc of clear, yellow fluid was removed. Fluid was sent to lab for ordered studies. -WBC 22.1 hemoglobin 11.2 hematocrit 33.8 platelet count 210 -Triglycerides 118 cholesterol 134 LDL 82 HDL 28.2 cholesterol/HDL ratio 4.75 -Alpha-fetoprotein 1.8 CA 199 antigen 15.2 ,serum immunology pending -06/25/2018 CT abdomen and pelvis 1. Suspected cirrhotic liver. 2. Mild to moderate amount of ascites. 3. Bilateral pleural effusions being mild on the right and minimal on the left. 4. Increased density at the inferior right middle lobe and right lower lobe likely related to consolidation or atelectasis. 5. Anasarca 6. Tiny nonobstructing left renal stone. 06/29/2018 New onset ascites, cirrhosis 06/29/2018 paracentesis ultrasound--Total volume of 5,900 cc of clear, red fluid was removed. Fluid was discarded. Paracentesis was therapeutic only. 06/28/2018 post EGD-- 1. There was LA Class B esophagitis noted 2. Single ulcer ranging between 3-7mm in size was found in the distal esophagus 3. Portal hypertensive gastropathy was found in the entire examined stomach 4. There was mild gastritis in the gastric antrum 5. Normal duodenal mucosa in the entire duodenum 6. Retroflexed views revealed a hiatal hernia WBC 20.9 trending down hemoglobin 10.0 hematocrit 30.9 06/30/18 New onset ascites, cirrhosis- not candidate for diuretics due to poor kidney function Plan low salt diet will consult IR for possible TIPS PPI EGD in 3 months Bowel regimen Supportive care Further recommendations to follow This patient has been seen by myself and Dr. Del Real and this note is written on his behalf
[2018-07-01] MEDS: Albumin Human 25% Inj 100 ML IV.SIG SCH ×3 (02:45→18:05)
[2018-07-01 05:46] LABS: Baso # (Auto) 0.1 th/mm3 (0.0-0.2); Baso % (Auto) 0.7 % (0.0-2.0); Eos # (Auto) 0.4 th/mm3 (0.0-0.4); Eos % (Auto) 3.4 % (0.0-4.0); Hematocrit 27.5 % (35.0-46.0); Hemoglobin 8.8 gm/dL (11.6-15.3); Lymph # (Auto) 8.6 th/mm3 (1.0-4.8); Lymph % (Auto) 65.5 % (9.0-44.0); Mean Corpuscular Hemoglobin 29.8 pg (27.0-34.0); Mean Platelet Volume 9.2 fL (7.0-11.0); Mono # (Auto) 0.5 th/mm3 (0.0-0.9); Mono % (Auto) 4.1 % (0.0-8.0); Neut # (Auto) 3.4 th/mm3 (1.8-7.7); Neut % (Auto) 26.3 % (16.0-70.0); Platelet Count 138 th/mm3 (150-450); Red Blood Count 2.96 mil/mm3 (4.00-5.30); White Blood Count 13.1 th/mm3 (4.0-11.0)
[2018-07-01] MEDS: Octreotide Inj 50 MCG/ML Vial IV.PUSH SCH ×3 (06:13→21:37)
[2018-07-01] MEDS: Sod Chloride 0.9% Inj 1,000 ML IV.CONT SCH (06:13)
[2018-07-01 06:32] LABS: Calcium 7.5 mg/dL (8.5-10.1); Carbon Dioxide 22.7 meq/L (21.0-32.0); Potassium 4.6 meq/L (3.5-5.1)
[2018-07-01 07:46] LABS: Eosinophils 3 % (0-4); Monocytes 2 % (0-8)
[2018-07-01 07:47] LABS: Lymphocytes 64 % (9-44); Platelet Morphology Normal (Normal); Smudge Cells Present
[2018-07-01 07:48] LABS: RBC Morphology Normal (Normal)
--- NOTE | 2018-07-01 09:18 | P.PNPL ---
Subjective Interval history: 72 YOWF with br asthma, DM, Rt lung infilt and Pl eff Breathing better no Abd pain no fever Feels better Anxious to go home Physical Exam Vital signs: Vital Signs 06/30/18 12:00 06/30/18 16:00 06/30/18 17:55 Temperature 97.9 F 98.3 F Pulse Rate 62 68 Respiratory Rate 18 16 Blood Pressure 102/55 L 127/58 L Pulse Oximetry 99 95 95 06/30/18 20:00 07/01/18 00:00 07/01/18 04:00 Temperature 98.2 F 97.9 F 98.1 F Pulse Rate 71 66 65 Respiratory Rate 17 18 17 Blood Pressure 173/77 H 128/70 137/65 Pulse Oximetry 95 95 98 07/01/18 08:00 Temperature 97.3 F L Pulse Rate 65 Respiratory Rate 18 Blood Pressure 150/69 H Pulse Oximetry 94 L Intake & Output 06/30/18 07/01/18 07/01/18 18:59 06:59 18:59 Intake Total 2900 / 2900 1200 / 1200 Output Total 400 / 400 300 / 300 Balance 2500 / 2500 900 / 900 Weight 78.6 kg Intake: IV 1300 / 1300 1200 / 1200 NS Inj 1,000 ML @ 50 mls/hr IV. 1000 / 1000 1000 / 1000 CONT .Q20H [facility] Rx#:[id number] Flexbumin 25% Inj 100 ML @ 60 200 / 200 200 / 200 mls/hr IV.SIG Q8H [facility] Rx#: [id number] Rocephin Inj 1,000 MG In NS Inj 100 / 100 100 ML @ 200 mls/hr IV.SIG Q24H [facility] Rx#:[id number] Oral 1600 / 1600 Output: Urine 400 / 400 300 / 300 Other: Date of Last Bowel Movement 06/28/18 # Bowel Movements 1 GENERAL: Elderly WF NAD SKIN: Warm and dry. HEAD: Normocephalic. EYES: No scleral icterus. No injection or drainage. NECK: Supple, trachea midline. No JVD or lymphadenopathy. CARDIOVASCULAR: Regular rate and rhythm without murmurs, gallops, or rubs. RESPIRATORY: Breath sounds equal bilaterally. No accessory muscle use. GASTROINTESTINAL: Abdomen soft, non-tender, nondistended. MUSCULOSKELETAL: No cyanosis, or edema. BACK: Nontender without obvious deformity. No CVA tenderness. Assessment and Plan - Plan IMPRESSION: 1. Right lung infiltrate. 2. Right pleural effusion. 3. Dyspnea. 4. Diabetes mellitus. 5. Hypertension. 6. Renal insufficiency and chronic kidney disease. 7. CLL PLAN: Cont Abx per ID Aerosol nebs Heparin 5000 IU SQ q 12 hrs Stable on RA DC plans underway IR for TIPS eval
[2018-07-01] MEDS: Insulin NovoLOG Aspart Correctional Sugar Inj SQ SCH ×4 (09:27→21:37)
[2018-07-01] MEDS: Nadolol 20 MG Tablet PO SCH (09:29)
--- NOTE | 2018-07-01 11:38 | P.PNPAL ---
Reason for Visit Reason for visit: a. To assist with evaluation and management of symptoms including: Shortness of breath, debility b. To assist medical decision maker(s) with: better understanding of current medical conditions; weighing benefits/burdens of medical treatment options; making medical treatment decisions. Subjective Subjective/Interval History: Follow-up medically necessary for symptom management and further clarification of goals of medical treatment. Patient seen and examined in the room. Patient is lying in bed scooted downwards in bed due to abdominal distention. Abdominal girth more enlarged as compared to examination on 06/29/18 post paracentesis. Patient states that this is the most comfortable position she can be at this point after offered repositioning. Patient denies pain except for abdominal discomfort. She denies respiratory distress, or constipation. Patient is currently on 4 L O2 via nasal cannula. Vital signs in the mid to high 90s. Patient states that she is currently n.p.o. for a possible transjugular intrahepatic portosystemic shunt placement by interventional radiology which was also confirmed by bedside RN. Patient is slightly hypertensive this morning with a blood pressure of 150/69. Oncology Dr. Flores consulted on 07/05/18 for evaluation and management of patient with CLL, recommended following lab work and no need for current treatment of CLL at this time. Laboratory workup 07/01/18 revealing WBC 13.1, 0.8, hematocrit 27.5, platelet count 138, sodium 142, potassium 4.6, BUN/ creatinine 56/3.40, random glucose 1 1, calcium 7.5. Infectious disease, pulmonology following. Expressed concern regarding recurrent ascites and possible complications that patient will continue to face due to her new diagnosis of cirrhosis. Patient fully has an understanding of her medical condition but is struggling with accepting health challenges she is facing. Exploring why she cannot have liver transplant. Provided empathetic listening as patient explained why all this is frustrating to her. Provided patient with a copy of 5 wishes, which she was very receptive to. Patient reiterates that she would want to continue with aggressive treatment unless she is in a vegetative state. And encouraged patient to continue discussing her wishes with her designated healthcare surrogates. Patient is hopeful to get better and be discharged home possibly with home health care. Patient states that she would not want to go to a correction facility especially during this time of holidays. . Family/Friend Interactions: No family at bedside. . Advance Directives Living Will: Never completed Health Care Surrogate: Copy in medical record Durable Power of [place] Shearer Operator: Never completed Advance Directives Date on File: 06/29/18 Health Care Surrogate Name and Number: HCS: Clarence Sylvester [phone] Alt: Bharat Willard Objective Vital Signs: Vital Signs 06/30/18 12:00 06/30/18 16:00 06/30/18 17:55 Temperature 97.9 F 98.3 F Pulse Rate 62 68 Respiratory Rate 18 16 Blood Pressure 102/55 L 127/58 L Pulse Oximetry 99 95 95 06/30/18 20:00 07/01/18 00:00 07/01/18 04:00 Temperature 98.2 F 97.9 F 98.1 F Pulse Rate 71 66 65 Respiratory Rate 17 18 17 Blood Pressure 173/77 H 128/70 137/65 Pulse Oximetry 95 95 98 07/01/18 08:00 Temperature 97.3 F L Pulse Rate 65 Respiratory Rate 18 Blood Pressure 150/69 H Pulse Oximetry 94 L Intake & Output 06/30/18 07/01/18 07/01/18 18:59 06:59 18:59 Intake Total 2900 / 2900 1200 / 1200 Output Total 400 / 400 300 / 300 Balance 2500 / 2500 900 / 900 Weight 78.6 kg Intake: IV 1300 / 1300 1200 / 1200 NS Inj 1,000 ML @ 50 mls/hr IV. 1000 / 1000 1000 / 1000 CONT .Q20H SHILPI Rx#:[id number] Flexbumin 25% Inj 100 ML @ 60 200 / 200 200 / 200 mls/hr IV.SIG Q8H SHILPI Rx#: [id number] Rocephin Inj 1,000 MG In NS Inj 100 / 100 100 ML @ 200 mls/hr IV.SIG Q24H SHILPI Rx#:[id number] Oral 1600 / 1600 Output: Urine 400 / 400 300 / 300 Other: Date of Last Bowel Movement 06/28/18 # Bowel Movements 1 Physical Exam: CONSTITUTIONAL/GENERAL: This is a chronically ill looking elderly patient, in no acute distress TUBES/LINES/DRAINS: PIV SKIN: Pale. Slightly jaundiced ecchymoses on upper extremities. No wounds seen anteriorly. Skin temperature appropriate. Not diaphoretic. HEAD: Atraumatic. Normocephalic. EYES: Pupils equal and round and reactive. Extraocular motions intact. No scleral icterus. No injection or drainage. Fundi not examined. ENT: Hearing grossly normal. Nose without bleeding or purulent drainage. Edentulous. NECK: Trachea midline. Supple, nontender. CARDIOVASCULAR: Regular rate and rhythm without murmurs, gallops, or rubs. No JVD. Peripheral pulses symmetric. RESPIRATORY/CHEST: Symmetric, unlabored respirations. Clear to auscultation. Breath sounds equal bilaterally. No wheezes, rales, or rhonchi. GASTROINTESTINAL: Abdomen soft, non-tender, distended. No guarding. Hypoactive bowel sounds. GENITOURINARY: Without palpable bladder distension. MUSCULOSKELETAL: Extremities without clubbing, cyanosis, or edema. No joint tenderness or effusion noted. No calf tenderness. No mottling or clubbing. LYMPHATICS: Did not assess NEUROLOGICAL: Awake and alert. Motor and sensory grossly within normal limits. Follows commands. Cognitively sharp. Moves all extremities. PSYCHIATRIC: No obvious anxiety/depression. no apparent hallucinations or other psychotic thought process. Diagnostic Tests Laboratory: Laboratory Results - last 72 hr 06/25/18 06/28/18 06/28/18 16:42 17:05 20:36 WBC RBC Hgb Hct MCV MCH MCHC RDW Plt Count MPV Prelim Diff (Auto) Neut % (Auto) Lymph % (Auto) [place] % (Auto) Eos % (Auto) Baso % (Auto) Neut # (Auto) Lymph # (Auto) [place] # (Auto) Eos # (Auto) Baso # (Auto) WBC Differential Seg Neuts % (Manual) Band Neuts % (Manual) Lymphocytes % (Manual) Monocytes % (Manual) Eosinophils % (Manual) Basophils % (Manual) Abs Neuts (Manual) Differential Comment Smudge Cells Platelet Estimate Platelet Morphology RBC Morphology Sodium Potassium Chloride Carbon Dioxide Anion Gap BUN Creatinine Estimated GFR POC Glucose 139 H 134 H Random Glucose Calcium Ceruloplasmin 33 Urine Color Urine Clarity Urine pH Ur Specific [place] Urine Protein Urine Glucose (UA) Urine Ketones Urine Occult Blood Urine Nitrate Urine Bilirubin Urine Urobilinogen Ur Leukocyte Esterase Urine RBC Urine WBC Ur Squamous Epith Cells Hyaline Casts Micro UA Comment Ur Microscopic Review Urine Culture Comments Ur Random Creatinine Ur Random Sodium Rheumatoid Factor Less than 14 LEIF Screen Negative LEIF Titer ND LEIF Pattern ND SS-A Antibody <1.0 neg SS-B Antibody <1.0 neg Sm (Woodward) Antibody <1.0 neg SM/[employer] ASSISTANT MANAGER Antibody <1.0 neg Scl-70 Antibody <1.0 neg Anti-ds DNA Titer (Crith) ND Anti-ds DNA (Crithidia) Negative Mitochondria M2 IgG Ab Less than 20.0 Anti-Smooth Muscle Ab Negative 06/29/18 06/29/18 06/29/18 06:13 06:13 11:30 WBC 20.9 H RBC 3.34 L Hgb 10.0 L Hct 30.9 L MCV 92.6 MCH 30.1 MCHC 32.5 RDW 15.2 Plt Count 163 MPV 9.0 Prelim Diff (Auto) Slide review pending Neut % (Auto) 30.2 Lymph % (Auto) 62.2 H Louisa % (Auto) 4.1 Eos % (Auto) 3.0 Baso % (Auto) 0.5 Neut # (Auto) 6.3 Lymph # (Auto) 13.0 H [place] # (Auto) 0.9 Eos # (Auto) 0.6 H Baso # (Auto) 0.1 WBC Differential Manual diff final Seg Neuts % (Manual) 26 Band Neuts % (Manual) 4 Lymphocytes % (Manual) 66 H Monocytes % (Manual) 2 Eosinophils % (Manual) 1 Basophils % (Manual) 1 Abs Neuts (Manual) 6.3 Differential Comment . Smudge Cells Present H Platelet Estimate Normal Platelet Morphology Normal RBC Morphology Sodium 140 Potassium 4.4 Chloride 107 Carbon Dioxide 24.3 Anion Gap 9 BUN 61 H Creatinine 3.82 H Estimated GFR 12 L POC Glucose Random Glucose 100 Calcium 8.0 L Ceruloplasmin Urine Color Yellow Urine Clarity Clear Urine pH 5.0 Ur Specific [place] 1.011 Urine Protein 30 H Urine Glucose (UA) Negative Urine Ketones Negative Urine Occult Blood Negative Urine Nitrate Negative Urine Bilirubin Negative Urine Urobilinogen Less than 2 Ur Leukocyte Esterase Negative Urine RBC Less than 1 Urine WBC 2 Ur Squamous Epith Cells 3 Hyaline Casts 14 Micro UA Comment Culture not ind Ur Microscopic Review Not Reportable Urine Culture Comments Culture not ind Ur Random Creatinine Ur Random Sodium Rheumatoid Factor LEIF Screen LEIF Titer LEIF Pattern SS-A Antibody SS-B Antibody Sm (Woodward) Antibody SM/[employer] ASSISTANT MANAGER Antibody Scl-70 Antibody Anti-ds DNA Titer (Crith) Anti-ds DNA (Crithidia) Mitochondria M2 IgG Ab Anti-Smooth Muscle Ab 06/29/18 06/29/1818 11:30 11:30 21:01 WBC RBC Hgb Hct MCV MCH MCHC RDW Plt Count MPV Prelim Diff (Auto) Neut % (Auto) Lymph % (Auto) Louisa % (Auto) Eos % (Auto) Baso % (Auto) Neut # (Auto) Lymph # (Auto) [place]a # (Auto) Eos # (Auto) Baso # (Auto) WBC Differential Seg Neuts % (Manual) Band Neuts % (Manual) Lymphocytes % (Manual) Monocytes % (Manual) Eosinophils % (Manual) Basophils % (Manual) Abs Neuts (Manual) Differential Comment Smudge Cells Platelet Estimate Platelet Morphology RBC Morphology Sodium Potassium Chloride Carbon Dioxide Anion Gap BUN Creatinine Estimated GFR POC Glucose 156 H Random Glucose Calcium Ceruloplasmin Urine Color Urine Clarity Urine pH Ur Specific [place] Urine Protein Urine Glucose (UA) Urine Ketones Urine Occult Blood Urine Nitrate Urine Bilirubin Urine Urobilinogen Ur Leukocyte Esterase Urine RBC Urine WBC Ur Squamous Epith Cells Hyaline Casts Micro UA Comment Ur Microscopic Review Urine Culture Comments Ur Random Creatinine 77 Ur Random Sodium 94 Rheumatoid Factor LEIF Screen LEIF Titer LEIF Pattern SS-A Antibody SS-B Antibody Sm (Woodward) Antibody SM/[employer] ASSISTANT MANAGER Antibody Scl-70 Antibody Anti-ds DNA Titer (Crith) Anti-ds DNA (Crithidia) Mitochondria M2 IgG Ab Anti-Smooth Muscle Ab 06/30/18 06/30/18 06/30/18 07:32 07:52 08:07 WBC 13.9 H RBC 2.98 L Hgb 9.0 L Hct 27.4 L MCV 91.9 MCH 30.3 MCHC 33.0 RDW 15.3 Plt Count 145 L MPV 9.0 Prelim Diff (Auto) Slide review pending Neut % (Auto) 31.0 Lymph % (Auto) 60.1 H [place] % (Auto) 5.0 Eos % (Auto) 3.3 Baso % (Auto) 0.6 Neut # (Auto) 4.3 Lymph # (Auto) 8.3 H [place] # (Auto) 0.7 Eos # (Auto) 0.5 H Baso # (Auto) 0.1 WBC Differential Manual diff final Seg Neuts % (Manual) 27 Band Neuts % (Manual) 2 Lymphocytes % (Manual) 67 H Monocytes % (Manual) 2 Eosinophils % (Manual) 2 Basophils % (Manual) Abs Neuts (Manual) 4.0 Differential Comment . Smudge Cells Platelet Estimate Low L Platelet Morphology Normal RBC Morphology Normal Sodium 141 Potassium 4.4 Chloride 108 H Carbon Dioxide 25.5 Anion Gap 8 BUN 62 H Creatinine 3.73 H Estimated GFR 12 L POC Glucose 122 H Random Glucose 117 H Calcium 7.5 L Ceruloplasmin Urine Color Urine Clarity Urine pH Ur Specific [place] Urine Protein Urine Glucose (UA) Urine Ketones Urine Occult Blood Urine Nitrate Urine Bilirubin Urine Urobilinogen Ur Leukocyte Esterase Urine RBC Urine WBC Ur Squamous Epith Cells Hyaline Casts Micro UA Comment Ur Microscopic Review Urine Culture Comments Ur Random Creatinine Ur Random Sodium Rheumatoid Factor LEIF Screen LEIF Titer LEIF Pattern SS-A Antibody SS-B Antibody Sm (Woodward) Antibody SM/[employer] ASSISTANT MANAGER Antibody Scl-70 Antibody Anti-ds DNA Titer (Crith) Anti-ds DNA (Crithidia) Mitochondria M2 IgG Ab Anti-Smooth Muscle Ab 06/30/18 06/30/18 06/30/18 11:53 17:12 20:22 WBC RBC Hgb Hct MCV MCH MCHC RDW Plt Count MPV Prelim Diff (Auto) Neut % (Auto) Lymph % (Auto) [place] % (Auto) Eos % (Auto) Baso % (Auto) Neut # (Auto) Lymph # (Auto) [place] # (Auto) Eos # (Auto) Baso # (Auto) WBC Differential Seg Neuts % (Manual) Band Neuts % (Manual) Lymphocytes % (Manual) Monocytes % (Manual) Eosinophils % (Manual) Basophils % (Manual) Abs Neuts (Manual) Differential Comment Smudge Cells Platelet Estimate Platelet Morphology RBC Morphology Sodium Potassium Chloride Carbon Dioxide Anion Gap BUN Creatinine Estimated GFR POC Glucose 140 H 171 H 141 H Random Glucose Calcium Ceruloplasmin Urine Color Urine Clarity Urine pH Ur Specific [place] Urine Protein Urine Glucose (UA) Urine Ketones Urine Occult Blood Urine Nitrate Urine Bilirubin Urine Urobilinogen Ur Leukocyte Esterase Urine RBC Urine WBC Ur Squamous Epith Cells Hyaline Casts Micro UA Comment Ur Microscopic Review Urine Culture Comments Ur Random Creatinine Ur Random Sodium Rheumatoid Factor LEIF Screen LEIF Titer LEIF Pattern SS-A Antibody SS-B Antibody Sm (Woodward) Antibody SM/[employer] ASSISTANT MANAGER Antibody Scl-70 Antibody Anti-ds DNA Titer (Crith) Anti-ds DNA (Crithidia) Mitochondria M2 IgG Ab Anti-Smooth Muscle Ab 07/01/18 07/01/18 07/01/18 04:43 04:43 07:53 WBC 13.1 H RBC 2.96 L Hgb 8.8 L Hct 27.5 L MCV 93.0 MCH 29.8 MCHC 32.0 RDW 15.0 Plt Count 138 L MPV 9.2 Prelim Diff (Auto) Slide review pending Neut % (Auto) 26.3 Lymph % (Auto) 65.5 H [place] % (Auto) 4.1 Eos % (Auto) 3.4 Baso % (Auto) 0.7 Neut # (Auto) 3.4 Lymph # (Auto) 8.6 H [place] # (Auto) 0.5 Eos # (Auto) 0.4 Baso # (Auto) 0.1 WBC Differential Manual diff final Seg Neuts % (Manual) 30 Band Neuts % (Manual) Lymphocytes % (Manual) 64 H Monocytes % (Manual) 2 Eosinophils % (Manual) 3 Basophils % (Manual) 1 Abs Neuts (Manual) 3.9 Differential Comment . Smudge Cells Present H Platelet Estimate Low L Platelet Morphology Normal RBC Morphology Normal Sodium 142 Potassium 4.6 Chloride 110 H Carbon Dioxide 22.7 Anion Gap 9 BUN 56 H Creatinine 3.40 H Estimated GFR 13 L POC Glucose 121 H Random Glucose 111 H Calcium 7.5 L Ceruloplasmin Urine Color Urine Clarity Urine pH Ur Specific [place] Urine Protein Urine Glucose (UA) Urine Ketones Urine Occult Blood Urine Nitrate Urine Bilirubin Urine Urobilinogen Ur Leukocyte Esterase Urine RBC Urine WBC Ur Squamous Epith Cells Hyaline Casts Micro UA Comment Ur Microscopic Review Urine Culture Comments Ur Random Creatinine Ur Random Sodium Rheumatoid Factor LEIF Screen LEIF Titer LEIF Pattern SS-A Antibody SS-B Antibody Sm (Woodward) Antibody SM/E[employer] ASSISTANT MANAGER Antibody Scl-70 Antibody Anti-ds DNA Titer (Crith) Anti-ds DNA (Crithidia) Mitochondria M2 IgG Ab Anti-Smooth Muscle Ab Result Diagrams: 07/01/18 04:43 07/01/18 04:43 Microbiology: Microbiology 06/25/18 17:15 Gram Stain - Final Fluid - Pleural fluid Body Fluid Culture - Final No growth in 72 hours (aerobically and anaerobically) 06/25/18 17:45 Gram Stain - Final Fluid - Peritoneal fluid Body Fluid Culture - Final No growth in 72 hours (aerobically and anaerobically) Imaging: Abdomen Ultrasound 06/25/18 00:00 CONCLUSION: 1. Moderate ascites 2. Hepatic cirrhosis Abdomen/Pelvis CT 06/25/18 00:00 CONCLUSION: 1. Suspected cirrhotic liver. 2. Mild to moderate amount of ascites. 3. Bilateral pleural effusions being mild on the right and minimal on the left. 4. Increased density at the inferior right middle lobe and right lower lobe likely related to consolidation or atelectasis. 5. Anasarca 6. Tiny nonobstructing left renal stone. Chest Ultrasound 06/25/18 00:00 CONCLUSION: 1. Large right pleural effusion without appreciable loculation. Thoracentesis Ultrasound 06/25/18 00:00 CONCLUSION: 1. Uncomplicated right thoracentesis. Head CT 06/25/18 06:47 CONCLUSION: 1. Stable evaluation of the head. 2. No evidence of acute infarct, hemorrhage, mass or edema. . Chest X-Ray 06/28/18 10:46 CONCLUSION: Hypoaerated lungs. No evidence of significant airspace disease or congestion. Paracentesis Ultrasound 06/29/18 00:00 CONCLUSION: 1. Uncomplicated paracentesis. Procedures: 06/25/18-Ultrasound guided paracentesis by interventional radiology with removal of 5700 mL's of clear, yellow fluid. 06/25/18 -Ultrasound-guided thoracentesis by interventional radiology with removal of 1200 mL's of clear, yellow fluid. 06/29/[id number] paracentesis by interventional radiology with removal of 5900 mL's of clear, red fluid. Assessment and Plan - Disease Oriented Problem List (1) Sepsis (2) Diabetes (3) Pneumonia (4) Acute on chronic kidney failure (5) Abdominal distension - Symptom Scale (1) Shortness of breath Comment: This is most likely from ascites and pleural effusion. Patient has had ultrasound guided thoracentesis on 03/05 with removal of 1200 mL's of clear, yellow fluid and ultrasound guided paracentesis on 06/25/18 with removal of 5700 mL's of clear fluid. (2) Debility Comment: Progressive. Patient has multiple ongoing comorbidities. Pertinent Non-Medical Issues: Psychosocial: Patient is originally from [facility]. She moved to [place] in 1983. She has been to her current for 29 years. 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 Patient has never had children. Spiritual: Patient is Jewish-open to insurance rater visit. Legal: Patient has completed designation of healthcare surrogate form today 07/05. Ethical issues impacting care: None identified at this time Important Contacts: Spouse-Higinio Lima [phone] . Prognosis: Mrs. Phoenix is a 72-year-old female with a past medical history of chronic lymphoid leukemia, asthma, diabetes mellitus, fatty liver, gout, arthritis, kidney disease, and thyroid disease. Patient presented to the emergency room on 06/25/18 for evaluation of generalized weakness, abdominal distention, shortness of breath and a painful bump on her head which she sustained from a fall from her water bed a week prior to presenting to the emergency room. Diagnostic EGD has showed that patient has liver cirrhosis. Clinical course complicated by shortness of breath, worsening renal function, and recurrent ascites. Given multiple ongoing comorbidities, patient remains at high risk for further complications, deterioration and decline. . Code Status: Full Code Plan: PLAN: Legal decision maker: Patient is alert and oriented to self, place and situation. Patient has insight regarding her medical condition and is able to weigh burdens and benefits of treatments offered to her. Patient is capable of making her own medical decisions. In the event that patient is incapacitated, she has designated her spouse Higinio Lima as her healthcare surrogate and her neighbor Sudheer Nicholson is her alternate healthcare surrogate. Goals: Aggressive. Patient has made herself a full code with an understanding of what it entails as well as an understanding of her current medical condition. She does mention that she would not want to live in a vegetative state. In the event that her renal function continues to deteriorate , patient is amenable to hemodialysis. CODE STATUS: Full code SYMPTOMS: * Shortness of breath:This is most likely from ascites and pleural effusion. Patient has had ultrasound guided thoracentesis on 06/25/18 with removal of 1200 mL's of clear, yellow fluid and ultrasound guided paracentesis on 06/25/18 with removal of 5700 mL's of clear fluid. Patient had another therapeutic paracentesis with removal of 5900 mL's of clear red fluid. Patient is currently on O2 2 L nasal cannula with O2 saturation in the mid to high 90s. Patient states that she is breathing much better after paracentesis. * Debility: Progressive. Patient has ongoing multiple comorbidities and has had multiple falls at home. Patient uses a wheeled walker at room. Physical therapy consulted, recommended PT at rehab. Palliative care will continue to follow the patient during hospital course as condition evolves, to assist patient/decision-maker with understanding of their medical conditions, weighing benefits/burdens of treatment options, for clarification of goals of treatment. Additionally will assist with any symptoms of palliative concern Attestation Attestation: To help prompt me to consider important information that might be impacting today's encounter and assessment, information from prior notes written by myself or my colleagues may have been "brought forward" into today's note. My signature on this note, however, is an attestation that I personally performed the exam, history, and/or decision-making noted today, and, unless otherwise indicated, the interactions with patient, family, and staff as well as the review of records all occurred today. I also attest that the listed assessment and stated plan reflect my best clinical judgment today based on the combination of historical information, prior notes, and today's exam/ interactions. When time spent is documented, it refers only to time spent today by the signer, or if indicated, combined time spent today by collaborating physician/nurse practitioner.
--- NOTE | 2018-07-01 13:35 | P.PNNP ---
Subjective Interval history: Patient was seen, no distress, complaints that abdominal distention returned. Renal function has slightly improved today. <Des Arora - Last Filed: 07/01/18 13:36> Physical Exam Vital signs: Vital Signs 06/30/18 16:00 06/30/18 17:55 06/30/18 20:00 Temperature 98.3 F 98.2 F Pulse Rate 68 71 Respiratory Rate 16 17 Blood Pressure 127/58 L 173/77 H Pulse Oximetry 95 95 95 07/01/18 00:00 07/01/18 04:00 07/01/18 08:00 Temperature 97.9 F 98.1 F 97.3 F L Pulse Rate 66 65 65 Respiratory Rate 18 17 18 Blood Pressure 128/70 137/65 150/69 H Pulse Oximetry 95 98 94 L 07/01/18 12:00 Temperature 98 F Pulse Rate 60 Respiratory Rate 18 Blood Pressure 135/69 Pulse Oximetry 95 Intake & Output 06/30/18 07/01/18 07/01/18 18:59 06:59 18:59 Intake Total 2900 / 2900 1200 / 1200 100 / 100 Output Total 400 / 400 300 / 300 Balance 2500 / 2500 900 / 900 100 / 100 Weight 78.6 kg Intake: IV 1300 / 1300 1200 / 1200 100 / 100 NS Inj 1,000 ML @ 50 mls/hr IV. 1000 / 1000 1000 / 1000 CONT .Q20H [facility] Rx#:[id number] Flexbumin 25% Inj 100 ML @ 60 200 / 200 200 / 200 mls/hr IV.SIG Q8H [facility] Rx#: [id number] Rocephin Inj 1,000 MG In NS Inj 100 / 100 100 / 100 100 ML @ 200 mls/hr IV.SIG Q24H [facility] Rx#:[id number] Oral 1600 / 1600 Output: Urine 400 / 400 300 / 300 Other: Date of Last Bowel Movement 06/28/18 # Bowel Movements 1 - Constitutional no acute distress - Routine HEENT Exam Head: Present: normocephalic Eye: Present: EOMI ENT: Present: mucous membranes moist - Routine Neck Exam Present: trachea midline. Absent: JVD, tracheal deviation - Routine Respiratory Exam Absent: accessory muscle use, respiratory distress - Routine Cardiovascular Exam Present: S1, S2 - Routine Abdominal Exam Present: distended, firm - Routine Extremities Exam Absent: cyanosis, edema - Routine Neurological Exam Present: alert, oriented X3 <Des Arora - Last Filed: 07/01/18 13:36> Vital signs: Vital Signs 06/30/18 16:00 06/30/18 17:55 06/30/18 20:00 Temperature 98.3 F 98.2 F Pulse Rate 68 71 Respiratory Rate 16 17 Blood Pressure 127/58 L 173/77 H Pulse Oximetry 95 95 95 07/01/18 00:00 07/01/18 04:00 07/01/18 08:00 Temperature 97.9 F 98.1 F 97.3 F L Pulse Rate 66 65 65 Respiratory Rate 18 17 18 Blood Pressure 128/70 137/65 150/69 H Pulse Oximetry 95 98 94 L 07/01/18 12:00 Temperature 98 F Pulse Rate 60 Respiratory Rate 18 Blood Pressure 135/69 Pulse Oximetry 95 Intake & Output 06/30/18 07/01/18 07/01/18 18:59 06:59 18:59 Intake Total 2900 / 2900 1200 / 1200 100 / 100 Output Total 400 / 400 300 / 300 Balance 2500 / 2500 900 / 900 100 / 100 Weight 78.6 kg Intake: IV 1300 / 1300 1200 / 1200 100 / 100 NS Inj 1,000 ML @ 50 mls/hr IV. 1000 / 1000 1000 / 1000 CONT .Q20H [facility] Rx#:[id number] Flexbumin 25% Inj 100 ML @ 60 200 / 200 200 / 200 mls/hr IV.SIG Q8H [facility] Rx#: [id number] Rocephin Inj 1,000 MG In NS Inj 100 / 100 100 / 100 100 ML @ 200 mls/hr IV.SIG Q24H [facility] Rx#:[id number] Oral 1600 / 1600 Output: Urine 400 / 400 300 / 300 Other: Date of Last Bowel Movement 06/28/18 # Bowel Movements 1 <Papi Busby - Last Filed: 07/01/18 14:43> Assessment and Plan - Assessment (1) Acute on chronic kidney failure Code(s): N17.9 - Acute kidney failure, unspecified; N18.9 - Chronic kidney disease, unspecified Status: Acute Plan: Could be secondary to hypotension and renal hypoperfusion. Possibility of hepatorenal syndrome should be considered. Renal function slightly improved today. Monitor fluid and electrolytes. Avoid Nephrotoxic agents. (2) Pneumonia Code(s): J18.9 - Pneumonia, unspecified organism Status: Acute Qualifiers: Pneumonia type: due to unspecified organism Laterality: right Lung location: middle lobe of lung Qualified Code(s): J18.1 - Lobar pneumonia, unspecified organism Plan: Patient is on Ceftriaxone. s/p thoracentesis. (3) Diabetes Code(s): E11.9 - Type 2 diabetes mellitus without complications Status: Acute Plan: Insulin coverage to maintain glucose levels between 140 and 180. (4) Abdominal distension Code(s): R14.0 - Abdominal distension (gaseous) Status: Acute Plan: s/p paracentesis x2. <Des Arora - Last Filed: 07/01/18 13:36> - Assessment (1) Acute on chronic kidney failure Code(s): N17.9 - Acute kidney failure, unspecified; N18.9 - Chronic kidney disease, unspecified Status: Acute (2) Pneumonia Code(s): J18.9 - Pneumonia, unspecified organism Status: Acute Qualifiers: Pneumonia type: due to unspecified organism Laterality: right Lung location: middle lobe of lung Qualified Code(s): J18.1 - Lobar pneumonia, unspecified organism (3) Diabetes Code(s): E11.9 - Type 2 diabetes mellitus without complications Status: Acute (4) Abdominal distension Code(s): R14.0 - Abdominal distension (gaseous) Status: Acute - Attending Attestation patient was seen and examined. Renal function is slightly better. Avoid nephrotoxic agents. Continue current management, but stop IVF. Urine Na is not low, also is non oliguric. I wonder if renal dysfunction is due to increased pressure on renal vein due to tense ascites. HRS not ruled out. <Papi Busby - Last Filed: 07/01/18 14:43>
[2018-07-01] MEDS ORDERED: Succinylcholine Inj 100 MG/5 ML Syringe IV.PUSH ONE (14:22)
[2018-07-01] MEDS ORDERED: Phenylephrine/NS 1000 MCG/10ML Syringe IV.PUSH ONE (14:22)
[2018-07-01] MEDS ORDERED: Sugammadex Inj 200 MG/2 ML Vial IV.PUSH ONE (15:18)
[2018-07-01] MEDS ORDERED: fentaNYL Citrate Inj 100 MCG/2 ML Ampul ONE (16:31)
--- NOTE | 2018-07-01 16:52 | P.RAD ---
Post Procedure Progress Note - Procedure Information Procedure Date: 07/01/18 Supervising Radiologist: Lambert Aponte MD Estimated blood loss (mL): 5 Anesthesia: General - Plan of Activity Patient to Unit: PACU See PACS Report for procedural detail/treatment.
--- NOTE | 2018-07-01 16:53 | IR ---
EXAM DATE: 07/01/2018 4:08 PM EST AGE/SEX: 72 years / Female INDICATIONS: 72-year-old female with history of cirrhosis and acute on chronic renal failure felt to represent hepatorenal syndrome. Patient also has ascites and hepatic hydrothorax. Sodium MELD score of 19. No previous history of encephalopathy. CLINICAL DATA: This is the patient's initial encounter. Patient reports that signs and symptoms have been present for 2 weeks and indicates a pain score of 6/10. MEDICAL/SURGICAL HISTORY: Leukemia. Asthma. Diabetes. HypertensionGout Thyroidectomy. Foot surgery COMPARISON: No prior exams available for comparison. FLUORO TIME (min): 26.8 IMAGE SERIES: 3 ACCESS SITE: Right internal jugular vein CONTRAST (cc): 30cc Omnipaque (iohexol) 350 ; ; ; ; Anesthesia and pain control was provided by the Anesthesia department. DEVICE(S): Portal vein [employer] DEVELOPER Balloon [id number] ; Portal vein TIPS stent ; ; ; ; ; . . PROCEDURE : 1. Ultrasound-guided puncture of the access site. 2. Right atrial pre-TIPS pressure measurements 3. Placement of transjugular intrahepatic portosystemic shunt (TIPS) 4. Right hepatic vein and portal venography 5. Right atrial and portal post TIPS pressure measurements The risks, benefits and alternatives to the procedure were explained and verbal and written consent w as obtained. The site was prepped in sterile fashion. Full sterile technique was used, including ca p, mask, sterile gloves and gown and a large sterile sheet. Hand hygiene and 2% chlorhexidine and/or betadine/alcohol prep was utilized per protocol for cutaneous antisepsis. Sterile gel and sterile p robe cover were utilized for ultrasound guidance. The skin and subcutaneous tissues were infiltrated with local anesthetic solution. Ultrasound evaluation of the right internal jugular vein demonstrated a patent internal jugular vein. Single image was obtained and placed in PACS archive. A 21-gauge micropuncture needle was advanced i nto the internal jugular vein under direct ultrasound guidance. This was subsequently exchanged for a 6 Sudanese sheath. Pressure measurements were then obtained through the sheath. Next, a Eladia catheter was used to select the right hepatic vein and venogram was performed demonstrating patency. Sheath w as subsequently exchanged for a 10 Sudanese sheath which was advanced into the right hepatic vein. Need le was advanced through a metal cannula and following multiple passes through right lobe of the liver the portal vein was accessed. Catheter was advanced into the portal vein and venography was performe d confirming position in the portal vein. Next, the tract was dilated with 6 x 40 mm balloon and wagner th was advanced into the portal vein. An 8+2 cm x 10 mm Viatorr stent was deployed through the tract and subsequently dilated to 10 mm with 10 mm balloon. Repeat portal venogram was performed demonstrat ing excellent flow through the TIPS. Very sluggish flow through an enlarged gastric varix. Given the sluggish flow in the varix, embolization was not performed. Catheters and wires were then removed and hemostasis obtained at the puncture site with manual compre ssion. The patient tolerated the procedure well and there were no complications. FINDINGS: Right atrial pressure pre-TIPS placement: 12 mmHg Right atrial pressure Post-TIPS placement: 21 mmHg Portal vein pressure Post-TIPS placement: 19 mmHg Post-TIPS gradient: 2mmHg Right hepatic vein and portal veins are patent. Right hepatic vein to right portal vein TIPS placemen t. . CONCLUSION: 1. Uncomplicated fluoroscopic guided placement of TIPS shunts from the right hepatic vein to the rig ht portal vein, as above. PLAN: Baseline ultrasound examination in 2 weeks with surveillance ultrasound at 3 months, 6 months a nd one year. Electronically signed by: Lambert Aponte MD Board Certified Radiologist 07/01/2018 4:52 PM ADRIENNE Salazar
--- NOTE | 2018-07-01 18:44 | P.PN ---
Subjective Interval history: Late entry The patient was seen earlier today prior to TIPS procedure Patient is in bed she is looking forward for the procedure. She feels tired and she is not able to ambulate without help. Since however she has help at home her . She denies any chest pain or shortness of breath. No nausea or vomiting. Says however belly is getting distended again. Says lower extremity edema improved significantly however the belly is still big. No abdominal pain. Physical Exam Vital signs: Vital Signs 06/30/18 20:00 07/01/18 00:00 07/01/18 04:00 Temperature 98.2 F 97.9 F 98.1 F Pulse Rate 71 66 65 Respiratory Rate 17 18 17 Blood Pressure 173/77 H 128/70 137/65 Pulse Oximetry 95 95 98 07/01/18 08:00 07/01/18 12:00 07/01/18 16:21 Temperature 97.3 F L 98 F 97.4 F L Pulse Rate 65 60 58 L Respiratory Rate 18 18 14 Blood Pressure 150/69 H 135/69 162/68 H Pulse Oximetry 94 L 95 93 L 07/01/18 16:30 07/01/18 16:45 07/01/18 17:00 Temperature 97.4 F L 97.4 F L 97.4 F L Pulse Rate 57 L 56 L 57 L Respiratory Rate 14 14 14 Blood Pressure 153/67 H 151/84 H 156/65 H Pulse Oximetry 93 L 93 L 93 L 07/01/18 17:15 07/01/18 17:19 07/01/18 18:05 Temperature 97.7 F 99 F Pulse Rate 58 L 57 L Respiratory Rate 14 16 Blood Pressure 155/68 H 145/65 H Pulse Oximetry 93 L 93 L 93 L Intake & Output 06/30/18 07/01/18 07/01/18 18:59 06:59 18:59 Intake Total 2900 / 2900 1200 / 1200 100 / 100 Output Total 400 / 400 300 / 300 Balance 2500 / 2500 900 / 900 100 / 100 Weight 78.6 kg Intake: IV 1300 / 1300 1200 / 1200 100 / 100 NS Inj 1,000 ML @ 50 mls/hr IV. 1000 / 1000 1000 / 1000 CONT .Q20H [facility] Rx#:[id number] Flexbumin 25% Inj 100 ML @ 60 200 / 200 200 / 200 mls/hr IV.SIG Q8H [facility] Rx#: [id number] Rocephin Inj 1,000 MG In NS Inj 100 / 100 100 / 100 100 ML @ 200 mls/hr IV.SIG Q24H [facility] Rx#:[id number] Oral 1600 / 1600 Output: Urine 400 / 400 300 / 300 Other: Date of Last Bowel Movement 06/28/18 # Bowel Movements 1 Narrative: GENERAL: Patient is a pleasant 72-year-old female, pale, obese, awake and alert. SKIN: Cool and dry. Pale. CARDIOVASCULAR: Regular rate and rhythm. No murmurs, rubs or gallops heard RESPIRATORY: Decreased breath sounds at bases, has few scattered wheezing ABDOMEN: non-tender, mildly distended. Bowel sounds present and normoactive. No guarding. No rebound. No organomegaly. EXTREMITIES: No clubbing, cyanosis. Has mild pedal edema. No joint effusion , has good ROM. No calf tenderness. Well perfused and warm. NEUROLOGICAL: Awake and alert. Cranial nerves grossly intact. Motor grossly within normal limits. PSYCHIATRIC: Normal affect, calm and cooperative. Results - Labs CBC & Chem 7: 07/01/18 04:43 07/01/18 04:43 Laboratory Results - last 24 hr 06/30/18 07/01/18 07/01/18 20:22 04:43 04:43 WBC 13.1 H RBC 2.96 L Hgb 8.8 L Hct 27.5 L MCV 93.0 MCH 29.8 MCHC 32.0 RDW 15.0 Plt Count 138 L MPV 9.2 Prelim Diff (Auto) Slide review pending Neut % (Auto) 26.3 Lymph % (Auto) 65.5 H Carver % (Auto) 4.1 Eos % (Auto) 3.4 Baso % (Auto) 0.7 Neut # (Auto) 3.4 Lymph # (Auto) 8.6 H Carver # (Auto) 0.5 Eos # (Auto) 0.4 Baso # (Auto) 0.1 WBC Differential Manual diff final Seg Neuts % (Manual) 30 Lymphocytes % (Manual) 64 H Monocytes % (Manual) 2 Eosinophils % (Manual) 3 Basophils % (Manual) 1 Abs Neuts (Manual) 3.9 Differential Comment . Smudge Cells Present H Platelet Estimate Low L Platelet Morphology Normal RBC Morphology Normal Sodium 142 Potassium 4.6 Chloride 110 H Carbon Dioxide 22.7 Anion Gap 9 BUN 56 H Creatinine 3.40 H Estimated GFR 13 L POC Glucose 141 H Random Glucose 111 H Calcium 7.5 L 07/01/18 07/01/18 07/01/18 07:53 12:51 16:37 WBC RBC Hgb Hct MCV MCH MCHC RDW Plt Count MPV Prelim Diff (Auto) Neut % (Auto) Lymph % (Auto) Carver % (Auto) Eos % (Auto) Baso % (Auto) Neut # (Auto) Lymph # (Auto) Carver # (Auto) Eos # (Auto) Baso # (Auto) WBC Differential Seg Neuts % (Manual) Lymphocytes % (Manual) Monocytes % (Manual) Eosinophils % (Manual) Basophils % (Manual) Abs Neuts (Manual) Differential Comment Smudge Cells Platelet Estimate Platelet Morphology RBC Morphology Sodium Potassium Chloride Carbon Dioxide Anion Gap BUN Creatinine Estimated GFR POC Glucose 121 H 133 H 140 H Random Glucose Calcium 07/01/18 18:04 WBC RBC Hgb Hct MCV MCH MCHC RDW Plt Count MPV Prelim Diff (Auto) Neut % (Auto) Lymph % (Auto) Carver % (Auto) Eos % (Auto) Baso % (Auto) Neut # (Auto) Lymph # (Auto) Carver # (Auto) Eos # (Auto) Baso # (Auto) WBC Differential Seg Neuts % (Manual) Lymphocytes % (Manual) Monocytes % (Manual) Eosinophils % (Manual) Basophils % (Manual) Abs Neuts (Manual) Differential Comment Smudge Cells Platelet Estimate Platelet Morphology RBC Morphology Sodium Potassium Chloride Carbon Dioxide Anion Gap BUN Creatinine Estimated GFR POC Glucose 151 H Random Glucose Calcium - Imaging Impressions TIPS 07/01/18 00:00 CONCLUSION: 1. Uncomplicated fluoroscopic guided placement of TIPS shunts from the right hepatic vein to the right portal vein, as above. PLAN: Baseline ultrasound examination in 2 weeks with surveillance ultrasound at 3 months, 6 months and one year. Assessment and Plan - Assessment (1) Acute on chronic kidney failure Code(s): N17.9 - Acute kidney failure, unspecified; N18.9 - Chronic kidney disease, unspecified Status: Acute (2) Pneumonia Code(s): J18.9 - Pneumonia, unspecified organism Status: Acute (3) Diabetes Code(s): E11.9 - Type 2 diabetes mellitus without complications Status: Acute (4) Abdominal distension Code(s): R14.0 - Abdominal distension (gaseous) Status: Acute - Plan Sepsis ( leukocytosis/ tachycardia) due to pneumonia; continue with IV antibiotics- cultures negative so far. Pneumonia/ right pleural effusion; Abx as noted above-cultures negative so far- neb treatments. s/p thoracentesis- cultures negative so far. ID consult appreciated. echo with EF 55%. echo was d/w ;mobile density reported on the echo probably is not significant clinically. pulmonary following. Abdominal distention/ ascites; s/p paracentesis- hepatitis panel negative- diuretics stopped due to SIERRA- GI following. IR consulted plan for TIPS 07/01/18 Esophageal ulcer/ gastritis; continue PPI- GI following. Leukocytosis- no fever and no obvious source for infection so far- will consult Oncology in light of history of CLL. Fall/ generalized weakness; consulted PT. PT recommends rehab however patient wants to go home Diabetes mellitus; started on accu-check with SSI Acute kidney injury superimposed on chronic renal insufficiency; likely hepatorenal syndrome-diuretics discontinued. nephrology following; will consider HD if no improvement in kidney function. -DVT prophylaxis with subq heparin palliative care following. FULL CODE DC plan. TIPS by IR on 07/01/18. PT recommends rehab however patient wants to go home since her can help her however she is not safe for discharge at this time. (2) Pneumonia Qualifiers: Pneumonia type: due to unspecified organism Laterality: right Lung location : middle lobe of lung Qualified Code(s): J18.1 - Lobar pneumonia, unspecified organism
[2018-07-02] MEDS: Albumin Human 25% Inj 100 ML IV.SIG SCH ×3 (02:48→18:21)
[2018-07-02] MEDS: Octreotide Inj 50 MCG/ML Vial IV.PUSH SCH ×3 (06:10→22:46)
[2018-07-02 06:57] LABS: Alanine Aminotransferase 16 U/L (10-53); Albumin 3.8 g/dL (3.4-5.0); Anion Gap 7 meq/L (5-15); Aspartate Aminotransferase 45 U/L (15-37); Blood Urea Nitrogen 57 mg/dL (7-18); Carbon Dioxide 24.7 meq/L (21.0-32.0); Chloride 109 meq/L (98-107); Glomerular Filtration Rate 13 mL/min (>89); Glucose,Random 143 mg/dL (74-106); Potassium 5.3 meq/L (3.5-5.1); Sodium 141 meq/L (136-145)
[2018-07-02 06:59] LABS: Alkaline Phosphatase 89 U/L (45-117); Total Protein 6.1 g/dL (6.4-8.2)
[2018-07-02] MEDS: Insulin NovoLOG Aspart Correctional Sugar Inj SQ SCH ×4 (08:29→22:52)
[2018-07-02] MEDS: Nadolol 20 MG Tablet PO SCH (08:40)
--- NOTE | 2018-07-02 09:37 | P.PNID ---
Subjective Remarks: Patient is a 72-year-old female presented to the hospital complaining of shortness of breath. She has had problem with shortness of breath over the last several months, but it has progressively worsened that she has difficulty ambulating. She gets orthopnea. She occasionally has cough but no phlegm. Denies any chest pain. She admits to some intermittent low-grade fevers. It was also noted that her abdomen has been more distended. On evaluation she was found to have pleural effusions as well as ascites and liver cirrhosis on ultrasound. She also had a CT of the abdomen and pelvis which did not show any lymphadenopathy. She has not been febrile. She has had thoracentesis and they took out 1.2 L of fluid. Paracentesis and they took out 5.7 L of ascites. Since admission she has had leukocytosis of 20,000 and higher. 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 She has not required any treatment for her CLL. Patient currently she has had upper endoscopy. She has had some diarrhea. She is noted increased abdominal girth again. Patient also has had increasing creatinine, and her urine output has been decreasing. Stool for C. difficile is negative. I do not have a urinalysis. Her initial chest x-ray on admission showing a right base infiltrate and effusion. Her last chest x-ray after she has had thoracenteses showed hypoaeration, with no infiltrates seen. Patient has been on Rocephin since admission. Infectious disease consultation has been requested to assist with evaluation and treatment of leukocytosis. Notes reviewed Temps ok WBC lower Had TIPS procedure yesterday D/W RN Has had some SOB, desats Also C/O chest pain when she breathes started this morning Creatinine rising UA ok Antibiotics: Rocephin Past Medical History: Asthma Diabetes Gout Hypertension Leukemia H/O foot surgery H/O thyroidectomy Allergies/Adverse Reactions: Allergies No Known Allergies Allergy (Verified 06/25/18 05:25) Objective Vital Signs 07/01/18 12:00 07/01/18 16:21 07/01/18 16:30 Temperature 98 F 97.4 F L 97.4 F L Pulse Rate 60 58 L 57 L Respiratory Rate 18 14 14 Blood Pressure 135/69 162/68 H 153/67 H Pulse Oximetry 95 93 L 93 L 07/01/18 16:45 07/01/18 17:00 07/01/18 17:15 Temperature 97.4 F L 97.4 F L 97.7 F Pulse Rate 56 L 57 L 58 L Respiratory Rate 14 14 14 Blood Pressure 151/84 H 156/65 H 155/68 H Pulse Oximetry 93 L 93 L 93 L 07/01/18 17:19 07/01/18 18:05 07/01/18 20:00 Temperature 99 F 97.2 F L Pulse Rate 57 L 64 Respiratory Rate 16 18 Blood Pressure 145/65 H 122/63 Pulse Oximetry 93 L 93 L 91 L 07/02/18 00:00 Temperature 97.7 F Pulse Rate 65 Respiratory Rate 18 Blood Pressure 136/76 Pulse Oximetry 92 L Intake & Output 07/01/18 07/02/18 07/02/18 18:59 06:59 18:59 Intake Total 100 / 100 520 / 520 1000 / 1000 Output Total 350 / 350 Balance 100 / 100 170 / 170 1000 / 1000 Weight 81.6 kg Intake: IV 100 / 100 200 / 200 1000 / 1000 Flexbumin 25% Inj 100 ML @ 60 200 / 200 mls/hr IV.SIG Q8H SHILPI Rx#: [id number] Rocephin Inj 1,000 MG In NS Inj 100 / 100 100 ML @ 200 mls/hr IV.SIG Q24H SHILPI Rx#:[id number] Oral 320 / 320 Output: Urine 350 / 350 Other: # Voids 2 # Incontinent Voids 1 Date of Last Bowel Movement 07/01/18 07/01/18 # Bowel Movements 1 Lab - Hematology Results 06/30/18 07/01/18 07:32 04:43 WBC 13.1 H RBC 2.96 L Hgb 8.8 L Hct 27.5 L MCV 93.0 MCH 29.8 MCHC 32.0 RDW 15.0 Plt Count 138 L MPV 9.2 Prelim Diff (Auto) Slide review pending Neut % (Auto) 26.3 Lymph % (Auto) 65.5 H Emery % (Auto) 4.1 Eos % (Auto) 3.4 Baso % (Auto) 0.7 Neut # (Auto) 3.4 Lymph # (Auto) 8.6 H Emery # (Auto) 0.5 Eos # (Auto) 0.4 Baso # (Auto) 0.1 WBC Differential Manual diff final Manual diff final Seg Neuts % (Manual) 27 30 Band Neuts % (Manual) 2 Lymphocytes % (Manual) 67 H 64 H Monocytes % (Manual) 2 2 Eosinophils % (Manual) 2 3 Basophils % (Manual) 1 Abs Neuts (Manual) 4.0 3.9 Differential Comment . Smudge Cells Present H Platelet Estimate Low L Low L Platelet Morphology Normal Normal RBC Morphology Normal Normal Lab - Chemistry Results 06/26/18 06/30/18 06/30/18 07:48 11:53 17:12 Sodium Potassium Chloride Carbon Dioxide Anion Gap BUN Creatinine Estimated GFR POC Glucose 148 H 140 H 171 H Random Glucose Calcium Total Bilirubin AST ALT Alkaline Phosphatase Ammonia Total Protein Albumin 06/30/18 07/01/18 07/01/18 20:22 04:43 07:53 Sodium 142 Potassium 4.6 Chloride 110 H Carbon Dioxide 22.7 Anion Gap 9 BUN 56 H Creatinine 3.40 H Estimated GFR 13 L POC Glucose 141 H 121 H Random Glucose 111 H Calcium 7.5 L Total Bilirubin AST ALT Alkaline Phosphatase Ammonia Total Protein Albumin 07/01/18 07/01/18 07/01/18 12:51 16:37 18:04 Sodium Potassium Chloride Carbon Dioxide Anion Gap BUN Creatinine Estimated GFR POC Glucose 133 H 140 H 151 H Random Glucose Calcium Total Bilirubin AST ALT Alkaline Phosphatase Ammonia Total Protein Albumin 07/01/18 07/02/18 07/02/18 20:54 06:00 06:20 Sodium 141 Potassium 5.3 H Chloride 109 H Carbon Dioxide 24.7 Anion Gap 7 BUN 57 H Creatinine 3.39 H Estimated GFR 13 L POC Glucose 148 H Random Glucose 143 H Calcium 8.0 L Total Bilirubin 1.2 H AST 45 H ALT 16 Alkaline Phosphatase 89 Ammonia 34 H Total Protein 6.1 L D Albumin 3.8 07/02/18 08:25 Sodium Potassium Chloride Carbon Dioxide Anion Gap BUN Creatinine Estimated GFR POC Glucose 127 H Random Glucose Calcium Total Bilirubin AST ALT Alkaline Phosphatase Ammonia Total Protein Albumin Imaging: ITS Impressions Abdomen Ultrasound 06/25/18 00:00 CONCLUSION: 1. Moderate ascites 2. Hepatic cirrhosis Abdomen/Pelvis CT 06/25/18 00:00 CONCLUSION: 1. Suspected cirrhotic liver. 2. Mild to moderate amount of ascites. 3. Bilateral pleural effusions being mild on the right and minimal on the left. 4. Increased density at the inferior right middle lobe and right lower lobe likely related to consolidation or atelectasis. 5. Anasarca 6. Tiny nonobstructing left renal stone. Chest Ultrasound 06/25/18 00:00 CONCLUSION: 1. Large right pleural effusion without appreciable loculation. Thoracentesis Ultrasound 06/25/18 00:00 CONCLUSION: 1. Uncomplicated right thoracentesis. Head CT 06/25/18 06:47 CONCLUSION: 1. Stable evaluation of the head. 2. No evidence of acute infarct, hemorrhage, mass or edema. . Chest X-Ray 06/28/18 10:46 CONCLUSION: Hypoaerated lungs. No evidence of significant airspace disease or congestion. Paracentesis Ultrasound 06/29/18 00:00 CONCLUSION: 1. Uncomplicated paracentesis. TIPS 07/01/18 00:00 CONCLUSION: 1. Uncomplicated fluoroscopic guided placement of TIPS shunts from the right hepatic vein to the right portal vein, as above. PLAN: Baseline ultrasound examination in 2 weeks with surveillance ultrasound at 3 months, 6 months and one year. Physical Exam: GENERAL: awake and alert, not in respiratory distress. SKIN: Cool and dry. No generalized rash. HEAD: Atraumatic. Normocephalic. No temporal wasting, or tenderness. EYES: [place]stein conjunctiva. No petechia or hemorrhage. No scleral icterus. No injection or drainage. EARS, NOSE AND THROAT: Mucous membranes pink and moist. No oral lesions noted. No exudate. No oral thrush. NECK: Ecchymoses R side where they had venipunture for TIPS CARDIOVASCULAR: Regular rate and rhythm. No murmurs, rubs or gallops heard RESPIRATORY: Decreased breath sounds at bases ABDOMEN: Globular, non-tender, softer. Bowel sounds present and normoactive. No guarding. No rebound. No organomegaly. EXTREMITIES: No clubbing, cyanosis. Has mild pedal edema. No calf tenderness. NEUROLOGICAL: Grossly non-focal. PSYCHIATRIC: Normal affect, calm and cooperative. LINE: No evidence of infection Assessment and Plan - Plan Impression Leukocytosis, etiology? seems to be back to her baseline - ?reactive - no obvious source of infection - CXR now clear after tap - no UA, no complaints - C diff negative - ?part of her CLL, has lymphocyte predominance on manual diff Eligio effusions and ascites, etiology? Known CLL, stage 0 Ascites,, has liver cirrhosis on impaging S/P TIPS Chest pain, ?etiology - ?related to TIPS Renal failure, creatinine rising Recommendation Stop Rocephin CXR eval SOB and CP Monitor progress D/W RN
[2018-07-02 10:13] LABS: ABG Base Excess -4.5 mmol/L (-2-2); ABG PCO2 48 mmHg (38-42); ABG PO2 54 mmHg (61-120)
[2018-07-02] MEDS ORDERED: MethylPREDNISolone Sod Succinate Inj 125 MG/2 ML Vial IV.PUSH ONE (10:15)
--- NOTE | 2018-07-02 10:46 | XR ---
EXAM DATE: 07/02/2018 10:28 AM EST AGE/SEX: 72 years / Female INDICATIONS: Painful respirations. CLINICAL DATA: This is the patient's subsequent encounter. Patient reports that signs and symptoms h ave been present for 2 days and indicates a pain score of 0/10. MEDICAL/SURGICAL HISTORY: . Asthma. Diabetes. Hypertension. Leukemia. Gout. . Thyroidectomy. . [place] [facility] [place]. . FINDINGS: AP upright portable view of the chest demonstrates mild cardiomegaly with diffuse cephalization of va sculature and perivascular airspace consolidations. Findings are new from prior exam. CONCLUSION: Radiographic findings concerning for possible congestive heart failure with severe pulmonary edema ve rsus ARDS. Electronically signed by: Cheri Vu MD Board Certified Radiologist 07/02/2018 10:45 AM Rosana GUAJARDO
--- NOTE | 2018-07-02 11:40 | P.PN ---
Subjective Interval history: The patient is in bed with sob. Noted dessating in low 80s while on 2L by NS, increased to 5L, still in 80s. ABG ordered and patient placed on NRM, and transferred on ICU for BIPAP. Patient improving with Lasix, duoneb and solumedrol x1 and says she doesn't want to use BiPAP. Patient is not coughing. No fever or chills. She is not wheezing. Complains of some chest discomfort. No Says she wants to go home, I explained to the patient her current situation. Patient says she doesn't want to . Will consult palliative care for goals of care. Physical Exam Vital signs: Vital Signs 07/01/18 12:00 07/01/18 16:21 07/01/18 16:30 Temperature 98 F 97.4 F L 97.4 F L Pulse Rate 60 58 L 57 L Respiratory Rate 18 14 14 Blood Pressure 135/69 162/68 H 153/67 H Pulse Oximetry 95 93 L 93 L 07/01/18 16:45 07/01/18 17:00 07/01/18 17:15 Temperature 97.4 F L 97.4 F L 97.7 F Pulse Rate 56 L 57 L 58 L Respiratory Rate 14 14 14 Blood Pressure 151/84 H 156/65 H 155/68 H Pulse Oximetry 93 L 93 L 93 L 07/01/18 17:19 07/01/18 18:05 07/01/18 20:00 Temperature 99 F 97.2 F L Pulse Rate 57 L 64 Respiratory Rate 16 18 Blood Pressure 145/65 H 122/63 Pulse Oximetry 93 L 93 L 91 L 07/02/18 00:00 07/02/18 08:00 07/02/18 10:15 Temperature 97.7 F 97.4 F L Pulse Rate 65 70 Respiratory Rate 18 18 Blood Pressure 136/76 121/56 L Pulse Oximetry 92 L 83 L 93 L Intake & Output 07/01/18 07/02/18 07/02/18 18:59 06:59 18:59 Intake Total 100 / 100 520 / 520 1000 / 1000 Output Total 350 / 350 Balance 100 / 100 170 / 170 1000 / 1000 Weight 81.6 kg Intake: IV 100 / 100 200 / 200 1000 / 1000 Flexbumin 25% Inj 100 ML @ 60 200 / 200 mls/hr IV.SIG Q8H SHILPI Rx#: [id number] Rocephin Inj 1,000 MG In NS Inj 100 / 100 100 ML @ 200 mls/hr IV.SIG Q24H SHILPI Rx#:[id number] Oral 320 / 320 Output: Urine 350 / 350 Other: # Voids 2 # Incontinent Voids 1 Date of Last Bowel Movement 07/01/18 07/01/18 # Bowel Movements 1 Narrative: GENERAL: Pleasant female, appears sob. SKIN: Cool and dry. Drg on right side of neck. CARDIOVASCULAR: Regular rate and rhythm. No murmurs, rubs or gallops heard RESPIRATORY: Decreased breath sounds at bases. Bibasilar crackles. No use of accessory muscles. ABDOMEN: non-tender, mildly distended. Bowel sounds present and normoactive. No guarding. No rebound. EXTREMITIES: No clubbing, cyanosis. Well perfused and warm. NEUROLOGICAL: Awake and alert. Cranial nerves grossly intact. Motor grossly within normal limits. PSYCHIATRIC: Normal affect, calm and cooperative. Results - Labs CBC & Chem 7: 07/02/18 11:23 07/02/18 06:00 Laboratory Results - last 24 hr 06/26/18 07/01/18 07/01/18 07:48 12:51 16:37 Puncture Site Patient Temperature O2 Saturation ABG pH ABG pCO2 ABG pO2 ABG HCO3 ABG O2 Content ABG Base Excess ABG Methemoglobin Ulysses Test Hemoglobin Carboxyhemoglobin O2 Delivery Device Inspired O2 Critical Value Sodium Potassium Chloride Carbon Dioxide Anion Gap BUN Creatinine Estimated GFR POC Glucose 148 H 133 H 140 H Random Glucose Calcium Total Bilirubin AST ALT Alkaline Phosphatase Ammonia Total Protein Albumin 07/01/18 07/01/18 07/02/18 18:04 20:54 06:00 Puncture Site Patient Temperature O2 Saturation ABG pH ABG pCO2 ABG pO2 ABG HCO3 ABG O2 Content ABG Base Excess ABG Methemoglobin Ulysses Test Hemoglobin Carboxyhemoglobin O2 Delivery Device Inspired O2 Critical Value Sodium 141 Potassium 5.3 H Chloride 109 H Carbon Dioxide 24.7 Anion Gap 7 BUN 57 H Creatinine 3.39 H Estimated GFR 13 L POC Glucose 151 H 148 H Random Glucose 143 H Calcium 8.0 L Total Bilirubin 1.2 H AST 45 H ALT 16 Alkaline Phosphatase 89 Ammonia Total Protein 6.1 L D Albumin 3.8 07/02/18 07/02/18 07/02/18 06:20 08:25 10:00 Puncture Site Right radial Patient Temperature 98.6 O2 Saturation 80 L* ABG pH 7.27 L* ABG pCO2 48 H ABG pO2 54 L* ABG HCO3 21 L ABG O2 Content 11.3 L ABG Base Excess -4.5 L ABG Methemoglobin 0.9 Ulysses Test Present Hemoglobin 10.0 L Carboxyhemoglobin 1.6 O2 Delivery Device Nasal cannula Inspired O2 5 Critical Value Yes Sodium Potassium Chloride Carbon Dioxide Anion Gap BUN Creatinine Estimated GFR POC Glucose 127 H Random Glucose Calcium Total Bilirubin AST ALT Alkaline Phosphatase Ammonia 34 H Total Protein Albumin - Imaging Impressions TIPS 07/01/18 00:00 CONCLUSION: 1. Uncomplicated fluoroscopic guided placement of TIPS shunts from the right hepatic vein to the right portal vein, as above. PLAN: Baseline ultrasound examination in 2 weeks with surveillance ultrasound at 3 months, 6 months and one year. Chest X-Ray 07/02/18 00:00 CONCLUSION: Radiographic findings concerning for possible congestive heart failure with severe pulmonary edema versus ARDS. Assessment and Plan - Assessment (1) Acute on chronic kidney failure Code(s): N17.9 - Acute kidney failure, unspecified; N18.9 - Chronic kidney disease, unspecified Status: Acute (2) Pneumonia Code(s): J18.9 - Pneumonia, unspecified organism Status: Acute (3) Diabetes Code(s): E11.9 - Type 2 diabetes mellitus without complications Status: Acute (4) Abdominal distension Code(s): R14.0 - Abdominal distension (gaseous) Status: Acute - Plan Acute respiratory failure. Patient is noted dessatinNG IN 80S ON 2l nc,. abg STAT , cxr, CBC, BMP GIVE SOLUMEDROL X1 TIME IV , LASIX 20 MG IV ONCE, DUONEBS ABG reviewed patient placed on NRM and still dessating , transfer to ICU for BIPAP CXR shows congestion Will do BNP Continue lasix and continue albumin Sepsis ( leukocytosis/ tachycardia) due to pneumonia; continue with IV antibiotics- cultures negative so far. Pneumonia/ right pleural effusion; Abx as noted above-cultures negative so far- neb treatments. s/p thoracentesis- cultures negative so far. ID consult appreciated. echo with EF 55%. echo was d/w ;mobile density reported on the echo probably is not significant clinically. pulmonary following. Abdominal distention/ ascites; s/p paracentesis- hepatitis panel negative- diuretics stopped due to SIERRA- GI following. IR consulted plan for TIPS 07/01/18 Esophageal ulcer/ gastritis; continue PPI- GI following. Leukocytosis- no fever and no obvious source for infection so far- will consult Oncology in light of history of CLL. Fall/ generalized weakness; consulted PT. PT recommends rehab however patient wants to go home Diabetes mellitus; started on accu-check with SSI Acute kidney injury superimposed on chronic renal insufficiency; likely hepatorenal syndrome-diuretics discontinued. nephrology following; will consider HD if no improvement in kidney function. -DVT prophylaxis with subq heparin palliative care following. FULL CODE DC plan. TIPS by IR on 07/01/18. PT recommends rehab however patient wants to go home since her can help her however she is not safe for discharge at this time. Discussed with the patient, nurse, Dr Jeremiah SEXTON specialist (2) Pneumonia Qualifiers: Pneumonia type: due to unspecified organism Laterality: right Lung location : middle lobe of lung Qualified Code(s): J18.1 - Lobar pneumonia, unspecified organism
--- NOTE | 2018-07-02 11:49 | P.PNNP ---
Subjective Interval history: Sitting up in chair. Reports that she is having trouble with sleeping, some shortness of breath, and poor appetite. Creatinine at 3.39 today. <Tamara Andino - Last Filed: 07/02/18 11:39> Physical Exam Vital signs: Vital Signs 07/01/18 12:00 07/01/18 16:21 07/01/18 16:30 Temperature 98 F 97.4 F L 97.4 F L Pulse Rate 60 58 L 57 L Respiratory Rate 18 14 14 Blood Pressure 135/69 162/68 H 153/67 H Pulse Oximetry 95 93 L 93 L 07/01/18 16:45 07/01/18 17:00 07/01/18 17:15 Temperature 97.4 F L 97.4 F L 97.7 F Pulse Rate 56 L 57 L 58 L Respiratory Rate 14 14 14 Blood Pressure 151/84 H 156/65 H 155/68 H Pulse Oximetry 93 L 93 L 93 L 07/01/18 17:19 07/01/18 18:05 07/01/18 20:00 Temperature 99 F 97.2 F L Pulse Rate 57 L 64 Respiratory Rate 16 18 Blood Pressure 145/65 H 122/63 Pulse Oximetry 93 L 93 L 91 L 07/02/18 00:00 07/02/18 08:00 07/02/18 10:15 Temperature 97.7 F 97.4 F L Pulse Rate 65 70 Respiratory Rate 18 18 Blood Pressure 136/76 121/56 L Pulse Oximetry 92 L 83 L 93 L Intake & Output 07/01/18 07/02/18 07/02/18 18:59 06:59 18:59 Intake Total 100 / 100 520 / 520 1000 / 1000 Output Total 350 / 350 Balance 100 / 100 170 / 170 1000 / 1000 Weight 81.6 kg Intake: IV 100 / 100 200 / 200 1000 / 1000 Flexbumin 25% Inj 100 ML @ 60 200 / 200 mls/hr IV.SIG Q8H SHILPI Rx#: [id number] Rocephin Inj 1,000 MG In NS Inj 100 / 100 100 ML @ 200 mls/hr IV.SIG Q24H SHILPI Rx#:[id number] Oral 320 / 320 Output: Urine 350 / 350 Other: # Voids 2 # Incontinent Voids 1 Date of Last Bowel Movement 12/14/18 12/14/18 # Bowel Movements 1 Narrative: GENERAL: Alert and oriented. SKIN: Cool and dry. Drg on right side of neck. CARDIOVASCULAR: Regular rate and rhythm. No murmurs, rubs or gallops heard RESPIRATORY: Decreased breath sounds at bases, No use of accessory muscles. ABDOMEN: non-tender, mildly distended. Bowel sounds present and normoactive. No guarding. No rebound. EXTREMITIES: No clubbing, cyanosis. Well perfused and warm. NEUROLOGICAL: Awake and alert. Cranial nerves grossly intact. Motor grossly within normal limits. PSYCHIATRIC: Normal affect, calm and cooperative. <Tamara Andino - Last Filed: 07/02/18 11:39> Vital signs: Vital Signs 07/02/18 00:00 07/02/18 08:00 07/02/18 10:15 Temperature 97.7 F 97.4 F L Pulse Rate 65 70 Respiratory Rate 18 18 Blood Pressure 136/76 121/56 L Pulse Oximetry 92 L 83 L 93 L 07/02/18 12:38 07/02/18 13:00 07/02/18 13:01 Temperature Pulse Rate 69 68 68 Respiratory Rate 28 H 25 H 21 Blood Pressure 139/64 Pulse Oximetry 98 99 98 07/02/18 13:31 07/02/18 14:00 07/02/18 14:10 Temperature Pulse Rate 69 69 69 Respiratory Rate 30 H 21 23 Blood Pressure 137/65 146/70 H Pulse Oximetry 94 L 92 L 93 L 07/02/18 14:30 07/02/18 15:00 07/02/18 15:01 Temperature Pulse Rate 69 69 69 Respiratory Rate 33 H 39 H 33 H Blood Pressure 165/74 H 177/82 H Pulse Oximetry 93 L 95 96 07/02/18 15:30 07/02/18 15:37 07/02/18 16:00 Temperature Pulse Rate 69 69 69 Respiratory Rate 40 H 40 H 37 H Blood Pressure 156/117 H 173/74 H 175/80 H Pulse Oximetry 95 95 94 L 07/02/18 16:31 07/02/18 20:42 07/02/18 20:49 Temperature Pulse Rate 68 67 Respiratory Rate 39 H 20 Blood Pressure 153/73 H Pulse Oximetry 93 L 96 Intake & Output 07/02/18 07/02/18 07/03/18 06:59 18:59 06:59 Intake Total 520 / 520 1100 / 1100 Output Total 350 / 350 Balance 170 / 170 1100 / 1100 Weight 81.6 kg Intake: IV 200 / 200 1100 / 1100 Flexbumin 25% Inj 100 ML @ 60 200 / 200 100 / 100 mls/hr IV.SIG Q8H SHILPI Rx#: [id number] Oral 320 / 320 Output: Urine 350 / 350 Other: # Incontinent Voids 1 2 Date of Last Bowel Movement 07/01/18 07/01/18 <Elver Ya - Last Filed: 07/02/18 21:05> Assessment and Plan - Assessment (1) Acute on chronic kidney failure Code(s): N17.9 - Acute kidney failure, unspecified; N18.9 - Chronic kidney disease, unspecified Status: Acute Plan: Could be secondary to hypotension and renal hypoperfusion. Possibility of hepatorenal syndrome should be considered. Creatinine at 3.39 today Avoid Nephrotoxic agents. Urine Na is not low, also is non oliguric, IVF can be discontinued Lasix X 1 given Will continue to monitor fluid and electrolytes (2) Diabetes Code(s): E11.9 - Type 2 diabetes mellitus without complications Status: Acute Plan: Insulin coverage to maintain glucose levels between 140 and 180. (3) Abdominal distension Code(s): R14.0 - Abdominal distension (gaseous) Status: Acute Plan: s/p paracentesis x2. - Plan S/P TIPS procedure 07/01/18 <Tamara Andino - Last Filed: 07/02/18 11:39> - Assessment (1) Acute on chronic kidney failure Code(s): N17.9 - Acute kidney failure, unspecified; N18.9 - Chronic kidney disease, unspecified Status: Acute Plan: Patient seen and examined, agree with above. Creatinine is almost same, 3.3-3.4, non oliguric. Possibly has ATN, Lasix given. Watch for renal recovery. (2) Diabetes Code(s): E11.9 - Type 2 diabetes mellitus without complications Status: Acute (3) Abdominal distension Code(s): R14.0 - Abdominal distension (gaseous) Status: Acute <Elver Ya - Last Filed: 07/02/18 21:05>
[2018-07-02 12:04] LABS: Hematocrit 36.1 % (35.0-46.0); Hemoglobin 11.1 gm/dL (11.6-15.3); Mean Corpuscular Hemoglobin 29.2 pg (27.0-34.0); Mean Platelet Volume 8.6 fL (7.0-11.0); Platelet Count 321 th/mm3 (150-450); Red Cell Distribution Width 16.2 % (11.6-17.2); White Blood Count 51.1 th/mm3 (4.0-11.0)
[2018-07-02 12:37] LABS: Mean Corpuscular HGB Conc 30.8 % (32.0-36.0)
[2018-07-02 14:00] LABS: ABG Base Excess -5.9 mmol/L (-2-2); ABG PCO2 44 mmHg (38-42); ABG PO2 69 mmHG (61-120)
--- NOTE | 2018-07-02 20:22 | P.PNGI ---
Subjective Interval history: Patient awake and alert Moved to C due to pulmonary status change Post tips procedure <Gloria Manuel - Last Filed: 07/02/18 20:13> Interval history: The patient was seen and examined. Agree with above note. <Conner Curry - Last Filed: 07/03/18 08:33> Physical Exam Vital signs: Vital Signs 07/02/18 00:00 07/02/18 08:00 07/02/18 10:15 Temperature 97.7 F 97.4 F L Pulse Rate 65 70 Respiratory Rate 18 18 Blood Pressure 136/76 121/56 L Pulse Oximetry 92 L 83 L 93 L 07/02/18 12:38 07/02/18 13:00 07/02/18 13:01 Temperature Pulse Rate 69 68 68 Respiratory Rate 28 H 25 H 21 Blood Pressure 139/64 Pulse Oximetry 98 99 98 07/02/18 13:31 07/02/18 14:00 07/02/18 14:10 Temperature Pulse Rate 69 69 69 Respiratory Rate 30 H 21 23 Blood Pressure 137/65 146/70 H Pulse Oximetry 94 L 92 L 93 L 07/02/18 14:30 07/02/18 15:00 07/02/18 15:01 Temperature Pulse Rate 69 69 69 Respiratory Rate 33 H 39 H 33 H Blood Pressure 165/74 H 177/82 H Pulse Oximetry 93 L 95 96 07/02/18 15:30 07/02/18 15:37 07/02/18 16:00 Temperature Pulse Rate 69 69 69 Respiratory Rate 40 H 40 H 37 H Blood Pressure 156/117 H 173/74 H 175/80 H Pulse Oximetry 95 95 94 L 07/02/18 16:31 Temperature Pulse Rate 68 Respiratory Rate 39 H Blood Pressure 153/73 H Pulse Oximetry 93 L Intake & Output 07/02/18 07/02/18 07/03/18 06:59 18:59 06:59 Intake Total 520 / 520 1100 / 1100 Output Total 350 / 350 Balance 170 / 170 1100 / 1100 Weight 81.6 kg Intake: IV 200 / 200 1100 / 1100 Flexbumin 25% Inj 100 ML @ 60 200 / 200 100 / 100 mls/hr IV.SIG Q8H SHILPI Rx#: [id number] Oral 320 / 320 Output: Urine 350 / 350 Other: # Incontinent Voids 1 2 Date of Last Bowel Movement 07/01/18 07/01/18 - Constitutional mild distress, chronically ill appearing Comments: Patient awake and alert Insisting on being discharged home if not transferred to previous room - Routine Respiratory Exam Present: accessory muscle use, decreased breath sounds Comments: Fine crackles O2 via nonrebreather mask Saturation 94-95% on same Noted decreased to 86% when patient removes mask - Routine Cardiovascular Exam Present: S1, S2 - Routine Abdominal Exam Present: soft, normoactive bowel sounds. Absent: tenderness, firm - Routine Skin Exam Present: dry - Routine Neurological Exam Present: alert <Manuel,Gloria - Last Filed: 07/02/18 20:13> Vital signs: Vital Signs 07/02/18 10:15 07/02/18 12:38 07/02/18 13:00 Temperature Pulse Rate 69 68 Respiratory Rate 28 H 25 H Blood Pressure Pulse Oximetry 93 L 98 99 07/02/18 13:01 07/02/18 13:31 07/02/18 14:00 Temperature Pulse Rate 68 69 69 Respiratory Rate 21 30 H 21 Blood Pressure 139/64 137/65 Pulse Oximetry 98 94 L 92 L 07/02/18 14:10 07/02/18 14:30 07/02/18 15:00 Temperature Pulse Rate 69 69 69 Respiratory Rate 23 33 H 39 H Blood Pressure 146/70 H 165/74 H Pulse Oximetry 93 L 93 L 95 07/02/18 15:01 07/02/18 15:30 07/02/18 15:37 Temperature Pulse Rate 69 69 69 Respiratory Rate 33 H 40 H 40 H Blood Pressure 177/82 H 156/117 H 173/74 H Pulse Oximetry 96 95 95 07/02/18 16:00 07/02/18 16:31 07/02/18 17:00 Temperature Pulse Rate 69 68 68 Respiratory Rate 37 H 39 H 41 H Blood Pressure 175/80 H 153/73 H Pulse Oximetry 94 L 93 L 93 L 07/02/18 17:01 07/02/18 17:30 07/02/18 18:00 Temperature Pulse Rate 69 68 68 Respiratory Rate 41 H 41 H 30 H Blood Pressure 156/66 H 151/69 H 155/80 H Pulse Oximetry 93 L 93 L 85 L 07/02/18 18:31 07/02/18 19:00 07/02/18 19:30 Temperature Pulse Rate 67 67 67 Respiratory Rate 35 H 30 H 27 H Blood Pressure 160/69 H 151/75 H 155/70 H Pulse Oximetry 96 96 96 07/02/18 20:00 07/02/18 20:31 07/02/18 20:42 Temperature 98.2 F Pulse Rate 67 67 67 Respiratory Rate 22 17 20 Blood Pressure 140/76 161/72 H Pulse Oximetry 97 97 07/02/18 20:49 07/02/18 21:00 07/02/18 21:01 Temperature Pulse Rate 68 68 Respiratory Rate 25 H 30 H Blood Pressure 152/102 H Pulse Oximetry 96 95 96 07/02/18 21:19 07/02/18 21:44 07/02/18 22:00 Temperature Pulse Rate 67 67 66 Respiratory Rate 17 37 H 16 Blood Pressure 150/69 H 119/69 116/58 L Pulse Oximetry 94 L 97 100 07/02/18 22:31 07/02/18 23:00 07/02/18 23:30 Temperature Pulse Rate 67 67 66 Respiratory Rate 19 16 14 Blood Pressure 117/57 L 132/60 102/54 L Pulse Oximetry 96 97 96 07/03/18 00:00 07/03/18 00:01 07/03/18 00:30 Temperature Pulse Rate 65 64 64 Respiratory Rate 16 17 15 Blood Pressure 129/56 L 112/53 L Pulse Oximetry 94 L 95 96 07/03/18 01:00 07/03/18 01:01 07/03/18 01:30 Temperature Pulse Rate 65 66 63 Respiratory Rate 22 23 15 Blood Pressure 120/59 L 122/58 L Pulse Oximetry 92 L 92 L 97 07/03/18 02:00 07/03/18 02:30 07/03/18 02:31 Temperature Pulse Rate 62 63 Respiratory Rate 19 16 Blood Pressure 102/51 L 118/57 L Pulse Oximetry 92 L 93 L 07/03/18 03:00 07/03/18 03:30 07/03/18 04:00 Temperature Pulse Rate 63 61 63 Respiratory Rate 14 13 36 H Blood Pressure 110/54 L 87/52 L Pulse Oximetry 91 L 90 L 92 L 07/03/18 04:01 07/03/18 04:31 07/03/18 07:48 Temperature Pulse Rate 64 64 60 Respiratory Rate 25 H 22 20 Blood Pressure 106/51 L 130/58 L Pulse Oximetry 94 L 89 L 93 L Intake & Output 07/02/18 07/03/18 07/03/18 18:59 06:59 18:59 Intake Total 1100 / 1100 300 / 300 Output Total 400 / 400 Balance 1100 / 1100 -100 / -100 Weight 81.5 kg Intake: IV 1100 / 1100 100 / 100 Flexbumin 25% Inj 100 ML @ 60 100 / 100 100 / 100 mls/hr IV.SIG Q8H SHILPI Rx#: [id number] Oral 100 / 100 Other 100 / 100 Output: Urine 350 / 350 Stool 50 / 50 Other: # Incontinent Voids 2 Date of Last Bowel Movement 07/01/18 07/02/18 <Conner Curry - Last Filed: 07/03/18 08:33> Results - Labs CBC & Chem 7: 07/02/18 11:23 07/02/18 06:00 Laboratory Results - last 24 hr 06/26/18 07/01/18 07/02/18 07:48 20:54 06:00 WBC RBC Hgb Hct MCV MCH MCHC RDW Plt Count MPV Puncture Site Patient Temperature O2 Saturation ABG pH ABG pCO2 ABG pO2 ABG HCO3 ABG O2 Content ABG Base Excess ABG Methemoglobin Ulysses Test Hemoglobin Carboxyhemoglobin O2 Delivery Device Liter Flow Inspired O2 Critical Value Sodium 141 Potassium 5.3 H Chloride 109 H Carbon Dioxide 24.7 Anion Gap 7 BUN 57 H Creatinine 3.39 H Estimated GFR 13 L POC Glucose 148 H 148 H Random Glucose 143 H Calcium 8.0 L Total Bilirubin 1.2 H AST 45 H ALT 16 Alkaline Phosphatase 89 Ammonia Troponin I Total Protein 6.1 L D Albumin 3.8 Nasal Screen MRSA (PCR) 07/02/18 07/02/18 07/02/18 06:20 08:25 10:00 WBC RBC Hgb Hct MCV MCH MCHC RDW Plt Count MPV Puncture Site Right radial Patient Temperature 98.6 O2 Saturation 80 L* ABG pH 7.27 L* ABG pCO2 48 H ABG pO2 54 L* ABG HCO3 21 L ABG O2 Content 11.3 L ABG Base Excess -4.5 L ABG Methemoglobin 0.9 Ulysses Test Present Hemoglobin 10.0 L Carboxyhemoglobin 1.6 O2 Delivery Device Nasal cannula Liter Flow Inspired O2 5 Critical Value Yes Sodium Potassium Chloride Carbon Dioxide Anion Gap BUN Creatinine Estimated GFR POC Glucose 127 H Random Glucose Calcium Total Bilirubin AST ALT Alkaline Phosphatase Ammonia 34 H Troponin I Total Protein Albumin Nasal Screen MRSA (PCR) 07/02/18 07/02/18 07/02/18 11:23 12:00 12:04 WBC 51.1 H RBC 3.80 L Hgb 11.1 L D Hct 36.1 MCV 95.0 MCH 29.2 MCHC 30.8 L RDW 16.2 Plt Count 321 D MPV 8.6 Puncture Site Patient Temperature O2 Saturation ABG pH ABG pCO2 ABG pO2 ABG HCO3 ABG O2 Content ABG Base Excess ABG Methemoglobin Ulysses Test Hemoglobin Carboxyhemoglobin O2 Delivery Device Liter Flow Inspired O2 Critical Value Sodium Potassium Chloride Carbon Dioxide Anion Gap BUN Creatinine Estimated GFR POC Glucose 144 H Random Glucose Calcium Total Bilirubin AST ALT Alkaline Phosphatase Ammonia Troponin I 0.07 H Total Protein Albumin Nasal Screen MRSA (PCR) 07/02/18 07/02/18 07/02/18 13:00 13:49 16:21 WBC RBC Hgb Hct MCV MCH MCHC RDW Plt Count MPV Puncture Site Right radial Patient Temperature 98.6 O2 Saturation 89 L* ABG pH 7.27 L* ABG pCO2 44 H ABG pO2 69 ABG HCO3 20 L ABG O2 Content 13.7 ABG Base Excess -5.9 L ABG Methemoglobin 1.4 Ulysses Test Present Hemoglobin 10.9 L Carboxyhemoglobin 1.3 O2 Delivery Device Non-rebreathing mask Liter Flow 15.00 Inspired O2 100 Critical Value Yes Sodium Potassium Chloride Carbon Dioxide Anion Gap BUN Creatinine Estimated GFR POC Glucose 171 H Random Glucose Calcium Total Bilirubin AST ALT Alkaline Phosphatase Ammonia Troponin I Total Protein Albumin Nasal Screen MRSA (PCR) Not detected Microbiology 06/25/18 19:15 Fluid - Pleural fluid Fungal Smear - Final No fungal elements seen 06/25/18 19:15 Fluid - Pleural fluid Fungal Culture - Preliminary No growth in 1 week 06/25/18 17:15 Abscess - Chest Acid Fast Bacilli Smear - Final No acid fast bacilli seen 06/25/18 17:15 Abscess - Chest Mycobacterial Culture - Preliminary No growth in 1 week 06/25/18 17:45 Fluid - Peritoneal fluid Fungal Smear - Final No fungal elements seen 06/25/18 17:45 Fluid - Peritoneal fluid Fungal Culture - Preliminary No growth in 1 week 06/25/18 17:45 Fluid - Peritoneal fluid Acid Fast Bacilli Smear - Final No acid fast bacilli seen 06/25/18 17:45 Fluid - Peritoneal fluid Mycobacterial Culture - Preliminary No growth in 1 week - Imaging Impressions Chest X-Ray 07/02/18 00:00 CONCLUSION: Radiographic findings concerning for possible congestive heart failure with severe pulmonary edema versus ARDS. <Gloria Manuel - Last Filed: 07/02/18 20:13> - Labs CBC & Chem 7: 07/02/18 11:23 07/02/18 06:00 Laboratory Results - last 24 hr 07/02/18 07/02/18 07/02/18 10:00 11:23 12:00 WBC 51.1 H RBC 3.80 L Hgb 11.1 L D Hct 36.1 MCV 95.0 MCH 29.2 MCHC 30.8 L RDW 16.2 Plt Count 321 D MPV 8.6 Puncture Site Right radial Patient Temperature 98.6 O2 Saturation 80 L* ABG pH 7.27 L* ABG pCO2 48 H ABG pO2 54 L* ABG HCO3 21 L ABG O2 Content 11.3 L ABG Base Excess -4.5 L ABG Methemoglobin 0.9 Ulysses Test Present Hemoglobin 10.0 L Carboxyhemoglobin 1.6 O2 Delivery Device Nasal cannula Liter Flow Inspired O2 5 Critical Value Yes POC Glucose Troponin I 0.07 H Nasal Screen MRSA (PCR) 07/02/18 07/02/18 07/02/18 12:04 13:00 13:49 WBC RBC Hgb Hct MCV MCH MCHC RDW Plt Count MPV Puncture Site Right radial Patient Temperature 98.6 O2 Saturation 89 L* ABG pH 7.27 L* ABG pCO2 44 H ABG pO2 69 ABG HCO3 20 L ABG O2 Content 13.7 ABG Base Excess -5.9 L ABG Methemoglobin 1.4 Ulysses Test Present Hemoglobin 10.9 L Carboxyhemoglobin 1.3 O2 Delivery Device Non-rebreathing mask Liter Flow 15.00 Inspired O2 100 Critical Value Yes POC Glucose 144 H Troponin I Nasal Screen MRSA (PCR) Not detected 07/02/18 07/02/18 16:21 22:37 WBC RBC Hgb Hct MCV MCH MCHC RDW Plt Count MPV Puncture Site Patient Temperature O2 Saturation ABG pH ABG pCO2 ABG pO2 ABG HCO3 ABG O2 Content ABG Base Excess ABG Methemoglobin Ulysses Test Hemoglobin Carboxyhemoglobin O2 Delivery Device Liter Flow Inspired O2 Critical Value POC Glucose 171 H 183 H Troponin I Nasal Screen MRSA (PCR) Microbiology 06/25/18 19:15 Fluid - Pleural fluid Fungal Smear - Final No fungal elements seen 06/25/18 19:15 Fluid - Pleural fluid Fungal Culture - Preliminary No growth in 1 week 06/25/18 17:15 Abscess - Chest Acid Fast Bacilli Smear - Final No acid fast bacilli seen 06/25/18 17:15 Abscess - Chest Mycobacterial Culture - Preliminary No growth in 1 week 06/25/18 17:45 Fluid - Peritoneal fluid Fungal Smear - Final No fungal elements seen 06/25/18 17:45 Fluid - Peritoneal fluid Fungal Culture - Preliminary No growth in 1 week 06/25/18 17:45 Fluid - Peritoneal fluid Acid Fast Bacilli Smear - Final No acid fast bacilli seen 06/25/18 17:45 Fluid - Peritoneal fluid Mycobacterial Culture - Preliminary No growth in 1 week - Imaging Impressions Chest X-Ray 07/02/18 00:00 CONCLUSION: Radiographic findings concerning for possible congestive heart failure with severe pulmonary edema versus ARDS. <Conner Curry - Last Filed: 07/03/18 08:33> Assessment and Plan - Plan This is a 72-year-old obese female who had been in her usual state of health up until the past 3 months she noticed her abdomen beginning to become distended and noted some diffuse abdominal discomfort which has continued to worsen over this period of time patient came into the hospital on 06/25/2018 with shortness of breath and was getting to the point that she could hardly walk. She also notes that she is been sleeping on pillows and has noted some generalized weakness, fatigue, and low-grade fever off and on, nausea and no vomiting. Patient denies any previous history of any liver disease notes EGD and colonoscopy done years ago unknown timing or event but thinks it may have been with the [facility] group. Patient is a poor historian. Patient denies any rectal bleeding or hematemesis but has noted increased lower extremity edema also worsening over the past 2-3 months. Gastroenterology has been consulted to assist in this patient's care and control of her symptoms. Ultrasound done this admission did note moderate ascites and cirrhotic liver. Chest x-ray showed small to moderate pleural effusions. Labs reviewed which shows a hemoglobin 11.6, WBC 20.7, PT/INR 1.1, bilirubin 0.8, AST 41 mildly elevated and ALT 21, alkaline phosphatase 211. Patient notes only minimal social alcohol intake not even on a monthly basis and no previous history of tobacco use. Liver cirrhosis, unknown to patient so this appears to be a new diagnosis. Patient will need liver workup and AFP and CA-19-9 to evaluate for any metastasis. Liver ultrasound does show moderate ascites and cirrhotic liver Transaminitis mild AST 41 normal bilirubin and normal ALT, alkaline phosphatase 211. Minimal EtOH only on occasional rare social living Abdominal pain and distention probably related to #1. Recommend the need to consider paracentesis per IR, possible Wednesday Nausea but no vomiting 06/27/2018 New-onset ascites, cirrhosis -06/25/2018 thoracentesis ultrasound revealed the following--. Uncomplicated right thoracentesis. -06/25/2018 paracentesis--Total volume of 5700 cc of clear, yellow fluid was removed. Fluid was sent to lab for ordered studies. -WBC 22.1 hemoglobin 11.2 hematocrit 33.8 platelet count 210 -Triglycerides 118 cholesterol 134 LDL 82 HDL 28.2 cholesterol/HDL ratio 4.75 -Alpha-fetoprotein 1.8 CA 199 antigen 15.2 ,serum immunology pending -06/25/2018 CT abdomen and pelvis 1. Suspected cirrhotic liver. 2. Mild to moderate amount of ascites. 3. Bilateral pleural effusions being mild on the right and minimal on the left. 4. Increased density at the inferior right middle lobe and right lower lobe likely related to consolidation or atelectasis. 5. Anasarca 6. Tiny nonobstructing left renal stone. 06/29/2018 New onset ascites, cirrhosis 06/29/2018 paracentesis ultrasound--Total volume of 5,900 cc of clear, red fluid was removed. Fluid was discarded. Paracentesis was therapeutic only. 06/28/2018 post EGD-- 1. There was LA Class B esophagitis noted 2. Single ulcer ranging between 3-7mm in size was found in the distal esophagus 3. Portal hypertensive gastropathy was found in the entire examined stomach 4. There was mild gastritis in the gastric antrum 5. Normal duodenal mucosa in the entire duodenum 6. 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 Plan -Cardiac diet -Monitor labs -PPI -Plan of care as per critical care medicine/pulmonary consult -Post successful TIPS procedure. -Plan for baseline ultrasound examination in 2 weeks with surveillance ultrasound at 3 months, 6 months and 1 year -Supportive care -GI will sign off at this time, please notify for any further assistance This patient has been seen by myself and Dr. Curry and this note is written on his behalf - Attending Attestation <Gloria Manuel - Last Filed: 07/02/18 20:13> - Attending Attestation The patient was seen and examined. Agree with above note. <Conner Curry - Last Filed: 07/03/18 08:33>
[2018-07-02] MEDS: Melatonin 5 MG Tablet PO PRN (22:46)
[2018-07-03] MEDS: Albumin Human 25% Inj 100 ML IV.SIG SCH ×3 (06:22→18:05)
[2018-07-03] MEDS: Octreotide Inj 50 MCG/ML Vial IV.PUSH SCH ×3 (06:22→23:26)
--- NOTE | 2018-07-03 09:22 | P.PNID ---
Subjective Remarks: Patient is a 72-year-old female presented to the hospital complaining of shortness of breath. She has had problem with shortness of breath over the last several months, but it has progressively worsened that she has difficulty ambulating. She gets orthopnea. She occasionally has cough but no phlegm. Denies any chest pain. She admits to some intermittent low-grade fevers. It was also noted that her abdomen has been more distended. On evaluation she was found to have pleural effusions as well as ascites and liver cirrhosis on ultrasound. She also had a CT of the abdomen and pelvis which did not show any lymphadenopathy. She has not been febrile. She has had thoracentesis and they took out 1.2 L of fluid. Paracentesis and they took out 5.7 L of ascites. Since admission she has had leukocytosis of 20,000 and higher. 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 She has not required any treatment for her CLL. Patient currently she has had upper endoscopy. She has had some diarrhea. She is noted increased abdominal girth again. Patient also has had increasing creatinine, and her urine output has been decreasing. Stool for C. difficile is negative. I do not have a urinalysis. Her initial chest x-ray on admission showing a right base infiltrate and effusion. Her last chest x-ray after she has had thoracenteses showed hypoaeration, with no infiltrates seen. Patient has been on Rocephin since admission. Infectious disease consultation has been requested to assist with evaluation and treatment of leukocytosis. Notes reviewed D/W RN Transferred to [facility] yesterday CXR with bilateral infiltrates ABG alkalotic States her breathing is ok CP is better Denies abdominal pain Removes her nasal O2, sats drop to 70s Temps ok WBC up to 51K Creatinine remains high UO overnight 350 ml Had TIPS procedure 07/01 Antibiotics: None Past Medical History: Asthma Diabetes Gout Hypertension Leukemia H/O foot surgery H/O thyroidectomy Allergies/Adverse Reactions: Allergies No Known Allergies Allergy (Verified 06/25/18 05:25) Objective Vital Signs 07/02/18 10:15 07/02/18 12:38 07/02/18 13:00 Temperature Pulse Rate 69 68 Respiratory Rate 28 H 25 H Blood Pressure Pulse Oximetry 93 L 98 99 07/02/18 13:01 07/02/18 13:31 07/02/18 14:00 Temperature Pulse Rate 68 69 69 Respiratory Rate 21 30 H 21 Blood Pressure 139/64 137/65 Pulse Oximetry 98 94 L 92 L 07/02/18 14:10 07/02/18 14:30 07/02/18 15:00 Temperature Pulse Rate 69 69 69 Respiratory Rate 23 33 H 39 H Blood Pressure 146/70 H 165/74 H Pulse Oximetry 93 L 93 L 95 07/02/18 15:01 07/02/18 15:30 07/02/18 15:37 Temperature Pulse Rate 69 69 69 Respiratory Rate 33 H 40 H 40 H Blood Pressure 177/82 H 156/117 H 173/74 H Pulse Oximetry 96 95 95 07/02/18 16:00 07/02/18 16:31 07/02/18 17:00 Temperature Pulse Rate 69 68 68 Respiratory Rate 37 H 39 H 41 H Blood Pressure 175/80 H 153/73 H Pulse Oximetry 94 L 93 L 93 L 07/02/18 17:01 07/02/18 17:30 07/02/18 18:00 Temperature Pulse Rate 69 68 68 Respiratory Rate 41 H 41 H 30 H Blood Pressure 156/66 H 151/69 H 155/80 H Pulse Oximetry 93 L 93 L 85 L 07/02/18 18:31 07/02/18 19:00 07/02/18 19:30 Temperature Pulse Rate 67 67 67 Respiratory Rate 35 H 30 H 27 H Blood Pressure 160/69 H 151/75 H 155/70 H Pulse Oximetry 96 96 96 07/02/18 20:00 07/02/18 20:31 07/02/18 20:42 Temperature 98.2 F Pulse Rate 67 67 67 Respiratory Rate 22 17 20 Blood Pressure 140/76 161/72 H Pulse Oximetry 97 97 07/02/18 20:49 07/02/18 21:00 07/02/18 21:01 Temperature Pulse Rate 68 68 Respiratory Rate 25 H 30 H Blood Pressure 152/102 H Pulse Oximetry 96 95 96 07/02/18 21:19 07/02/18 21:44 07/02/18 22:00 Temperature Pulse Rate 67 67 66 Respiratory Rate 17 37 H 16 Blood Pressure 150/69 H 119/69 116/58 L Pulse Oximetry 94 L 97 100 07/02/18 22:31 07/02/18 23:00 07/02/18 23:30 Temperature Pulse Rate 67 67 66 Respiratory Rate 19 16 14 Blood Pressure 117/57 L 132/60 102/54 L Pulse Oximetry 96 97 96 07/03/18 00:00 07/03/18 00:01 07/03/18 00:30 Temperature Pulse Rate 65 64 64 Respiratory Rate 16 17 15 Blood Pressure 129/56 L 112/53 L Pulse Oximetry 94 L 95 96 07/03/18 01:00 07/03/18 01:01 07/03/18 01:30 Temperature Pulse Rate 65 66 63 Respiratory Rate 22 23 15 Blood Pressure 120/59 L 122/58 L Pulse Oximetry 92 L 92 L 97 07/03/18 02:00 07/03/18 02:30 07/03/18 02:31 Temperature Pulse Rate 62 63 Respiratory Rate 19 16 Blood Pressure 102/51 L 118/57 L Pulse Oximetry 92 L 93 L 07/03/18 03:00 07/03/18 03:30 07/03/18 04:00 Temperature Pulse Rate 63 61 63 Respiratory Rate 14 13 36 H Blood Pressure 110/54 L 87/52 L Pulse Oximetry 91 L 90 L 92 L 07/03/18 04:01 07/03/18 04:31 07/03/18 07:48 Temperature Pulse Rate 64 64 60 Respiratory Rate 25 H 22 20 Blood Pressure 106/51 L 130/58 L Pulse Oximetry 94 L 89 L 93 L Intake & Output 07/02/18 07/03/18 07/03/18 18:59 06:59 18:59 Intake Total 1100 / 1100 300 / 300 Output Total 400 / 400 Balance 1100 / 1100 -100 / -100 Weight 81.5 kg Intake: IV 1100 / 1100 100 / 100 Flexbumin 25% Inj 100 ML @ 60 100 / 100 100 / 100 mls/hr IV.SIG Q8H [facility] Rx#: [id number] Oral 100 / 100 Other 100 / 100 Output: Urine 350 / 350 Stool 50 / 50 Other: # Incontinent Voids 2 Date of Last Bowel Movement 07/01/18 07/02/18 06/25/18 19:15 Fluid - Pleural fluid Fungal Smear - Final No fungal elements seen 06/25/18 19:15 Fluid - Pleural fluid Fungal Culture - Preliminary No growth in 1 week 06/25/18 17:15 Abscess - Chest Acid Fast Bacilli Smear - Final No acid fast bacilli seen 06/25/18 17:15 Abscess - Chest Mycobacterial Culture - Preliminary No growth in 1 week 06/25/18 17:45 Fluid - Peritoneal fluid Fungal Smear - Final No fungal elements seen 06/25/18 17:45 Fluid - Peritoneal fluid Fungal Culture - Preliminary No growth in 1 week 06/25/18 17:45 Fluid - Peritoneal fluid Acid Fast Bacilli Smear - Final No acid fast bacilli seen 06/25/18 17:45 Fluid - Peritoneal fluid Mycobacterial Culture - Preliminary No growth in 1 week Lab - Hematology Results 07/02/18 11:23 WBC 51.1 H RBC 3.80 L Hgb 11.1 L D Hct 36.1 MCV 95.0 MCH 29.2 MCHC 30.8 L RDW 16.2 Plt Count 321 D MPV 8.6 Lab - Chemistry Results 06/26/18 07/01/18 07/01/18 07:48 12:51 16:37 Sodium Potassium Chloride Carbon Dioxide Anion Gap BUN Creatinine Estimated GFR POC Glucose 148 H 133 H 140 H Random Glucose Calcium Total Bilirubin AST ALT Alkaline Phosphatase Ammonia Troponin I Total Protein Albumin 07/01/18 07/01/18 07/02/18 18:04 20:54 06:00 Sodium 141 Potassium 5.3 H Chloride 109 H Carbon Dioxide 24.7 Anion Gap 7 BUN 57 H Creatinine 3.39 H Estimated GFR 13 L POC Glucose 151 H 148 H Random Glucose 143 H Calcium 8.0 L Total Bilirubin 1.2 H AST 45 H ALT 16 Alkaline Phosphatase 89 Ammonia Troponin I Total Protein 6.1 L D Albumin 3.8 07/02/18 07/02/18 07/02/18 06:20 08:25 12:00 Sodium Potassium Chloride Carbon Dioxide Anion Gap BUN Creatinine Estimated GFR POC Glucose 127 H Random Glucose Calcium Total Bilirubin AST ALT Alkaline Phosphatase Ammonia 34 H Troponin I 0.07 H Total Protein Albumin 07/02/18 07/02/18 07/02/18 12:04 16:21 22:37 Sodium Potassium Chloride Carbon Dioxide Anion Gap BUN Creatinine Estimated GFR POC Glucose 144 H 171 H 183 H Random Glucose Calcium Total Bilirubin AST ALT Alkaline Phosphatase Ammonia Troponin I Total Protein Albumin Imaging: ITS Impressions Abdomen Ultrasound 06/25/18 00:00 CONCLUSION: 1. Moderate ascites 2. Hepatic cirrhosis Abdomen/Pelvis CT 06/25/18 00:00 CONCLUSION: 1. Suspected cirrhotic liver. 2. Mild to moderate amount of ascites. 3. Bilateral pleural effusions being mild on the right and minimal on the left. 4. Increased density at the inferior right middle lobe and right lower lobe likely related to consolidation or atelectasis. 5. Anasarca 6. Tiny nonobstructing left renal stone. Chest Ultrasound 06/25/18 00:00 CONCLUSION: 1. Large right pleural effusion without appreciable loculation. Thoracentesis Ultrasound 06/25/18 00:00 CONCLUSION: 1. Uncomplicated right thoracentesis. Head CT 06/25/18 06:47 CONCLUSION: 1. Stable evaluation of the head. 2. No evidence of acute infarct, hemorrhage, mass or edema. . Paracentesis Ultrasound 06/29/18 00:00 CONCLUSION: 1. Uncomplicated paracentesis. TIPS 07/01/18 00:00 CONCLUSION: 1. Uncomplicated fluoroscopic guided placement of TIPS shunts from the right hepatic vein to the right portal vein, as above. PLAN: Baseline ultrasound examination in 2 weeks with surveillance ultrasound at 3 months, 6 months and one year. Chest X-Ray 07/02/18 00:00 CONCLUSION: Radiographic findings concerning for possible congestive heart failure with severe pulmonary edema versus ARDS. Physical Exam: GENERAL: awake and alert, not in respiratory distress. SKIN: Cool and dry. No generalized rash. HEAD: Atraumatic. Normocephalic. No temporal wasting, or tenderness. EYES: [place] conjunctiva. No petechia or hemorrhage. No scleral icterus. No injection or drainage. EARS, NOSE AND THROAT: Mucous membranes pink and moist. No oral lesions noted. No exudate. No oral thrush. NECK: Ecchymoses R side where they had venipunture for TIPS CARDIOVASCULAR: Regular rate and rhythm. No murmurs, rubs or gallops heard RESPIRATORY: Decreased breath sounds at bases ABDOMEN: Globular, soft, non-tender, mildly distended. Bowel sounds present and normoactive. No guarding. No rebound. No organomegaly. EXTREMITIES: No clubbing, cyanosis. Has mild pedal edema. No calf tenderness. NEUROLOGICAL: Grossly non-focal. PSYCHIATRIC: Normal affect, calm and cooperative. LINE: No evidence of infection Assessment and Plan - Plan Impression Leukocytosis, etiology? - ?reactive, up again now to 51K - no obvious source of infection - CXR now clear after tap - no UA, no complaints - C diff negative - ?part of her CLL, has lymphocyte predominance on manual diff Bilateral infiltrates - CHF Eligio effusions and ascites, etiology? Known CLL, stage 0 Ascites,, has liver cirrhosis on impaging S/P TIPS Chest pain, ?etiology - ?related to TIPS Renal failure, creatinine rising Recommendation Follow CBC Restart Abx: Levaquin and Flagyl Follow respiratory status Monitor progress Patient being very difficult, has been removing O2 and wanting to leave D/W RN
[2018-07-03] MEDS: Nadolol 20 MG Tablet PO SCH (09:52)
[2018-07-03] MEDS: Insulin NovoLOG Aspart Correctional Sugar Inj SQ SCH ×4 (09:54→20:28)
[2018-07-03] MEDS: Levofloxacin 250 mg Premix Inj 250 MG/50 ML PIGGYBACK IV.SIG SCH (11:11)
--- NOTE | 2018-07-03 11:52 | P.PNNP ---
Subjective Interval history: Patient is alert, breathing is better, was Hypoxic and moved to [facility]. Physical Exam Vital signs: Vital Signs 07/02/18 12:38 07/02/18 13:00 07/02/18 13:01 Temperature Pulse Rate 69 68 68 Respiratory Rate 28 H 25 H 21 Blood Pressure 139/64 Pulse Oximetry 98 99 98 07/02/18 13:31 07/02/18 14:00 07/02/18 14:10 Temperature Pulse Rate 69 69 69 Respiratory Rate 30 H 21 23 Blood Pressure 137/65 146/70 H Pulse Oximetry 94 L 92 L 93 L 07/02/18 14:30 07/02/18 15:00 07/02/18 15:01 Temperature Pulse Rate 69 69 69 Respiratory Rate 33 H 39 H 33 H Blood Pressure 165/74 H 177/82 H Pulse Oximetry 93 L 95 96 07/02/18 15:30 07/02/18 15:37 07/02/18 16:00 Temperature Pulse Rate 69 69 69 Respiratory Rate 40 H 40 H 37 H Blood Pressure 156/117 H 173/74 H 175/80 H Pulse Oximetry 95 95 94 L 07/02/18 16:31 07/02/18 17:00 07/02/18 17:01 Temperature Pulse Rate 68 68 69 Respiratory Rate 39 H 41 H 41 H Blood Pressure 153/73 H 156/66 H Pulse Oximetry 93 L 93 L 93 L 07/02/18 17:30 07/02/18 18:00 07/02/18 18:31 Temperature Pulse Rate 68 68 67 Respiratory Rate 41 H 30 H 35 H Blood Pressure 151/69 H 155/80 H 160/69 H Pulse Oximetry 93 L 85 L 96 07/02/18 19:00 07/02/18 19:30 07/02/18 20:00 Temperature 98.2 F Pulse Rate 67 67 67 Respiratory Rate 30 H 27 H 22 Blood Pressure 151/75 H 155/70 H 140/76 Pulse Oximetry 96 96 97 07/02/18 20:31 07/02/18 20:42 07/02/18 20:49 Temperature Pulse Rate 67 67 Respiratory Rate 17 20 Blood Pressure 161/72 H Pulse Oximetry 97 96 07/02/18 21:00 07/02/18 21:01 07/02/18 21:19 Temperature Pulse Rate 68 68 67 Respiratory Rate 25 H 30 H 17 Blood Pressure 152/102 H 150/69 H Pulse Oximetry 95 96 94 L 07/02/18 21:44 07/02/18 22:00 07/02/18 22:31 Temperature Pulse Rate 67 66 67 Respiratory Rate 37 H 16 19 Blood Pressure 119/69 116/58 L 117/57 L Pulse Oximetry 97 100 96 07/02/18 23:00 07/02/18 23:30 07/03/18 00:00 Temperature Pulse Rate 67 66 65 Respiratory Rate 16 14 16 Blood Pressure 132/60 102/54 L Pulse Oximetry 97 96 94 L 07/03/18 00:01 07/03/18 00:30 07/03/18 01:00 Temperature Pulse Rate 64 64 65 Respiratory Rate 17 15 22 Blood Pressure 129/56 L 112/53 L Pulse Oximetry 95 96 92 L 07/03/18 01:01 07/03/18 01:30 07/03/18 02:00 Temperature Pulse Rate 66 63 62 Respiratory Rate 23 15 19 Blood Pressure 120/59 L 122/58 L 102/51 L Pulse Oximetry 92 L 97 07/03/18 02:30 07/03/18 02:31 07/03/18 03:00 Temperature Pulse Rate 63 63 Respiratory Rate 16 14 Blood Pressure 118/57 L 110/54 L Pulse Oximetry 92 L 93 L 91 L 07/03/18 03:30 07/03/18 04:00 07/03/18 04:01 Temperature Pulse Rate 61 63 64 Respiratory Rate 13 36 H 25 H Blood Pressure 87/52 L 106/51 L Pulse Oximetry 90 L 92 L 94 L 07/03/18 04:31 07/03/18 07:48 07/03/18 08:00 Temperature Pulse Rate 64 60 Respiratory Rate 22 20 Blood Pressure 130/58 L Pulse Oximetry 89 L 93 L 96 Intake & Output 07/02/18 07/03/18 07/03/18 18:59 06:59 18:59 Intake Total 1100 / 1100 300 / 300 100 / 100 Output Total 400 / 400 Balance 1100 / 1100 -100 / -100 100 / 100 Weight 81.5 kg Intake: IV 1100 / 1100 100 / 100 100 / 100 Flexbumin 25% Inj 100 ML @ 60 100 / 100 100 / 100 100 / 100 mls/hr IV.SIG Q8H [facility] Rx#: [id number] Oral 100 / 100 Other 100 / 100 Output: Urine 350 / 350 Stool 50 / 50 Other: # Incontinent Voids 2 Date of Last Bowel Movement 07/01/18 07/02/18 07/01/18 Narrative: GENERAL: Pleasant female, appears sob. SKIN: Cool and dry. Drg on right side of neck. CARDIOVASCULAR: Regular rate and rhythm. No murmurs, rubs or gallops heard RESPIRATORY: Decreased breath sounds at bases. Bibasilar crackles. No use of accessory muscles. ABDOMEN: non-tender, mildly distended. Bowel sounds present and normoactive. No guarding. No rebound. EXTREMITIES: No clubbing, cyanosis. Well perfused and warm. NEUROLOGICAL: Awake and alert. Cranial nerves grossly intact. Motor grossly within normal limits. PSYCHIATRIC: Normal affect, calm and cooperative. Assessment and Plan - Assessment (1) Acute on chronic kidney failure Code(s): N17.9 - Acute kidney failure, unspecified; N18.9 - Chronic kidney disease, unspecified Status: Acute Plan: Patient has chronic kidney disease and develop SIERRA. Creatinine is almost same 3.3, Started on Lasix, non oliguric. Possibly has ATN, Watch for renal recovery. (2) Diabetes Code(s): E11.9 - Type 2 diabetes mellitus without complications Status: Acute Plan: Insulin coverage to maintain glucose levels between 140 and 180. (3) Abdominal distension Code(s): R14.0 - Abdominal distension (gaseous) Status: Acute Plan: s/p paracentesis x2. - Plan S/P TIPS procedure 07/01/18
[2018-07-03 12:15] LABS: ABG Base Excess -7.7 mmol/L (-2-2); ABG PCO2 36 mmHg (38-42); ABG PO2 53 mmHG (61-120)
[2018-07-03 12:28] LABS: Baso # (Auto) 0.1 th/mm3 (0.0-0.2); Baso % (Auto) 0.2 % (0.0-2.0); Hematocrit 32.6 % (35.0-46.0); Hemoglobin 10.2 gm/dL (11.6-15.3); Lymph # (Auto) 38.8 th/mm3 (1.0-4.8); Lymph % (Auto) 64.5 % (9.0-44.0); Mean Corpuscular HGB Conc 31.2 % (32.0-36.0); Mean Corpuscular Volume 96.2 fL (80.0-100.0); Mean Platelet Volume 8.6 fL (7.0-11.0); Mono # (Auto) 1.2 th/mm3 (0.0-0.9); Neut % (Auto) 33.3 % (16.0-70.0); Platelet Count 279 th/mm3 (150-450); Red Blood Count 3.39 mil/mm3 (4.00-5.30); Red Cell Distribution Width 17.1 % (11.6-17.2); White Blood Count 60.2 th/mm3 (4.0-11.0)
[2018-07-03 13:11] LABS: Calcium 8.8 mg/dL (8.5-10.1); Carbon Dioxide 21.5 meq/L (21.0-32.0); Potassium 5.6 meq/L (3.5-5.1)
[2018-07-03 13:20] LABS: Monocytes 1 % (0-8)
[2018-07-03 13:21] LABS: Lymphocytes 64 % (9-44); Platelet Estimate Normal (Normal); Platelet Morphology Normal (Normal); RBC Morphology Normal (Normal); Smudge Cells Present
--- NOTE | 2018-07-03 13:26 | P.PN ---
Subjective Interval history: She is seen and appears short of breath. Family at bedside her very supportive. Patient is refusing nonrebreather mask. Currently she is on 6 L by nasal cannula. She also refused BiPAP. [place] with the patient at length as ABG is not reassuring and patient is still hypoxic the need for BiPAP. The patient is agreeable to BiPAP at this time. No cough. Patient says she is going to use BiPAP today however she wants to leave AMA tomorrow. Physical Exam Vital signs: Vital Signs 07/02/18 13:31 07/02/18 14:00 07/02/18 14:10 Temperature Pulse Rate 69 69 69 Respiratory Rate 30 H 21 23 Blood Pressure 137/65 146/70 H Pulse Oximetry 94 L 92 L 93 L 07/02/18 14:30 07/02/18 15:00 07/02/18 15:01 Temperature Pulse Rate 69 69 69 Respiratory Rate 33 H 39 H 33 H Blood Pressure 165/74 H 177/82 H Pulse Oximetry 93 L 95 96 07/02/18 15:30 07/02/18 15:37 07/02/18 16:00 Temperature Pulse Rate 69 69 69 Respiratory Rate 40 H 40 H 37 H Blood Pressure 156/117 H 173/74 H 175/80 H Pulse Oximetry 95 95 94 L 07/02/18 16:31 07/02/18 17:00 07/02/18 17:01 Temperature Pulse Rate 68 68 69 Respiratory Rate 39 H 41 H 41 H Blood Pressure 153/73 H 156/66 H Pulse Oximetry 93 L 93 L 93 L 07/02/18 17:30 07/02/18 18:00 07/02/18 18:31 Temperature Pulse Rate 68 68 67 Respiratory Rate 41 H 30 H 35 H Blood Pressure 151/69 H 155/80 H 160/69 H Pulse Oximetry 93 L 85 L 96 07/02/18 19:00 07/02/18 19:30 07/02/18 20:00 Temperature 98.2 F Pulse Rate 67 67 67 Respiratory Rate 30 H 27 H 22 Blood Pressure 151/75 H 155/70 H 140/76 Pulse Oximetry 96 96 97 07/02/18 20:31 07/02/18 20:42 07/02/18 20:49 Temperature Pulse Rate 67 67 Respiratory Rate 17 20 Blood Pressure 161/72 H Pulse Oximetry 97 96 07/02/18 21:00 07/02/18 21:01 07/02/18 21:19 Temperature Pulse Rate 68 68 67 Respiratory Rate 25 H 30 H 17 Blood Pressure 152/102 H 150/69 H Pulse Oximetry 95 96 94 L 07/02/18 21:44 07/02/18 22:00 07/02/18 22:31 Temperature Pulse Rate 67 66 67 Respiratory Rate 37 H 16 19 Blood Pressure 119/69 116/58 L 117/57 L Pulse Oximetry 97 100 96 07/02/18 23:00 07/02/18 23:30 07/03/18 00:00 Temperature Pulse Rate 67 66 65 Respiratory Rate 16 14 16 Blood Pressure 132/60 102/54 L Pulse Oximetry 97 96 94 L 07/03/18 00:01 07/03/18 00:30 07/03/18 01:00 Temperature Pulse Rate 64 64 65 Respiratory Rate 17 15 22 Blood Pressure 129/56 L 112/53 L Pulse Oximetry 95 96 92 L 07/03/18 01:01 07/03/18 01:30 07/03/18 02:00 Temperature Pulse Rate 66 63 62 Respiratory Rate 23 15 19 Blood Pressure 120/59 L 122/58 L 102/51 L Pulse Oximetry 92 L 97 07/03/18 02:30 07/03/18 02:31 07/03/18 03:00 Temperature Pulse Rate 63 63 Respiratory Rate 16 14 Blood Pressure 118/57 L 110/54 L Pulse Oximetry 92 L 93 L 91 L 07/03/18 03:30 07/03/18 04:00 07/03/18 04:01 Temperature Pulse Rate 61 63 64 Respiratory Rate 13 36 H 25 H Blood Pressure 87/52 L 106/51 L Pulse Oximetry 90 L 92 L 94 L 07/03/18 04:31 07/03/18 07:48 07/03/18 08:00 Temperature Pulse Rate 64 60 Respiratory Rate 22 20 Blood Pressure 130/58 L Pulse Oximetry 89 L 93 L 96 Intake & Output 07/02/18 07/03/18 07/03/18 18:59 06:59 18:59 Intake Total 1100 / 1100 300 / 300 150 / 150 Output Total 400 / 400 Balance 1100 / 1100 -100 / -100 150 / 150 Weight 81.5 kg Intake: IV 1100 / 1100 100 / 100 150 / 150 Flexbumin 25% Inj 100 ML @ 60 100 / 100 100 / 100 100 / 100 mls/hr IV.SIG Q8H SHILPI Rx#: [id number] Levaquin 250 mg Premix Inj 250 50 / 50 mg In 50 ml @ 50 mls/hr IV.SIG Q24H SHILPI Rx#:[id number] Oral 100 / 100 Other 100 / 100 Output: Urine 350 / 350 Stool 50 / 50 Other: # Incontinent Voids 2 Date of Last Bowel Movement 07/01/18 07/02/18 07/01/18 Narrative: GENERAL: 72 yo female, chronically ill, appears sob. Refusing on off O2 supplement SKIN: Cool and dry. Drg on right side of neck. CARDIOVASCULAR: Regular rate and rhythm. No murmurs, rubs or gallops heard RESPIRATORY: Decreased breath sounds at bases. Bibasilar crackles. SOB. On 6L NC. No use of accessory muscles. ABDOMEN: non-tender, mildly distended. Bowel sounds present and normoactive. No guarding. No rebound. EXTREMITIES: No clubbing, cyanosis. Well perfused and warm. NEUROLOGICAL: Awake and alert. Cranial nerves grossly intact. Motor grossly within normal limits. PSYCHIATRIC: Normal affect, calm and cooperative. Results - Labs CBC & Chem 7: 07/03/18 11:30 07/03/18 11:30 Laboratory Results - last 24 hr 07/02/18 07/02/18 07/02/18 13:00 13:49 16:21 WBC RBC Hgb Hct MCV MCH MCHC RDW Plt Count MPV Prelim Diff (Auto) Neut % (Auto) Lymph % (Auto) [place] % (Auto) Eos % (Auto) Baso % (Auto) Neut # (Auto) Lymph # (Auto) [place] # (Auto) Eos # (Auto) Baso # (Auto) WBC Differential Seg Neuts % (Manual) Band Neuts % (Manual) Lymphocytes % (Manual) Monocytes % (Manual) Abs Neuts (Manual) Differential Comment Smudge Cells Platelet Estimate Platelet Morphology RBC Morphology Puncture Site Right radial Patient Temperature 98.6 O2 Saturation 89 L* ABG pH 7.27 L* ABG pCO2 44 H ABG pO2 69 ABG HCO3 20 L ABG O2 Content 13.7 ABG Base Excess -5.9 L ABG Methemoglobin 1.4 Ulysses Test Present Hemoglobin 10.9 L Carboxyhemoglobin 1.3 O2 Delivery Device Non-rebreathing mask Liter Flow 15.00 Inspired O2 100 Critical Value Yes Sodium Potassium Chloride Carbon Dioxide Anion Gap BUN Creatinine Estimated GFR POC Glucose 171 H Random Glucose Calcium Nasal Screen MRSA (PCR) Not detected 07/02/18 07/03/18 07/03/18 22:37 11:30 11:30 WBC 60.2 H RBC 3.39 L Hgb 10.2 L Hct 32.6 L MCV 96.2 MCH 30.0 MCHC 31.2 L RDW 17.1 Plt Count 279 MPV 8.6 Prelim Diff (Auto) Slide review pending Neut % (Auto) 33.3 Lymph % (Auto) 64.5 H [place] % (Auto) 2.0 Eos % (Auto) 0.0 Baso % (Auto) 0.2 Neut # (Auto) 20.0 H Lymph # (Auto) 38.8 H [place] # (Auto) 1.2 H Eos # (Auto) 0.0 Baso # (Auto) 0.1 WBC Differential Manual diff final Seg Neuts % (Manual) 34 Band Neuts % (Manual) 1 Lymphocytes % (Manual) 64 H Monocytes % (Manual) 1 Abs Neuts (Manual) 21.1 H Differential Comment . Smudge Cells Present H Platelet Estimate Normal Platelet Morphology Normal RBC Morphology Normal Puncture Site Patient Temperature O2 Saturation ABG pH ABG pCO2 ABG pO2 ABG HCO3 ABG O2 Content ABG Base Excess ABG Methemoglobin [place]es Test Hemoglobin Carboxyhemoglobin O2 Delivery Device Liter Flow Inspired O2 Critical Value Sodium 138 Potassium 5.6 H Chloride 106 Carbon Dioxide 21.5 Anion Gap 11 BUN 70 H Creatinine 4.31 H Estimated GFR 10 L POC Glucose 183 H Random Glucose 195 H Calcium 8.8 D Nasal Screen MRSA (PCR) 07/03/18 07/03/18 12:02 12:04 WBC RBC Hgb Hct MCV MCH MCHC RDW Plt Count MPV Prelim Diff (Auto) Neut % (Auto) Lymph % (Auto) [place] % (Auto) Eos % (Auto) Baso % (Auto) Neut # (Auto) Lymph # (Auto) [place] # (Auto) Eos # (Auto) Baso # (Auto) WBC Differential Seg Neuts % (Manual) Band Neuts % (Manual) Lymphocytes % (Manual) Monocytes % (Manual) Abs Neuts (Manual) Differential Comment Smudge Cells Platelet Estimate Platelet Morphology RBC Morphology Puncture Site Left radial Patient Temperature 98.6 O2 Saturation 86 L* ABG pH 7.31 L ABG pCO2 36 L ABG pO2 53 L* ABG HCO3 17 L ABG O2 Content 12.0 ABG Base Excess -7.7 L ABG Methemoglobin 1.3 Ulysses Test Present Hemoglobin 9.9 L Carboxyhemoglobin 1.3 O2 Delivery Device Nasal cannula Liter Flow 6.00 Inspired O2 Critical Value Yes Sodium Potassium Chloride Carbon Dioxide Anion Gap BUN Creatinine Estimated GFR POC Glucose 249 H Random Glucose Calcium Nasal Screen MRSA (PCR) Microbiology 06/25/18 19:15 Fluid - Pleural fluid Fungal Smear - Final No fungal elements seen 06/25/18 19:15 Fluid - Pleural fluid Fungal Culture - Preliminary No growth in 1 week 06/25/18 17:15 Abscess - Chest Acid Fast Bacilli Smear - Final No acid fast bacilli seen 06/25/18 17:15 Abscess - Chest Mycobacterial Culture - Preliminary No growth in 1 week 06/25/18 17:45 Fluid - Peritoneal fluid Fungal Smear - Final No fungal elements seen 06/25/18 17:45 Fluid - Peritoneal fluid Fungal Culture - Preliminary No growth in 1 week 06/25/18 17:45 Fluid - Peritoneal fluid Acid Fast Bacilli Smear - Final No acid fast bacilli seen 06/25/18 17:45 Fluid - Peritoneal fluid Mycobacterial Culture - Preliminary No growth in 1 week Assessment and Plan - Assessment (1) Acute on chronic kidney failure Code(s): N17.9 - Acute kidney failure, unspecified; N18.9 - Chronic kidney disease, unspecified Status: Acute (2) Pneumonia Code(s): J18.9 - Pneumonia, unspecified organism Status: Acute (3) Diabetes Code(s): E11.9 - Type 2 diabetes mellitus without complications Status: Acute (4) Abdominal distension Code(s): R14.0 - Abdominal distension (gaseous) Status: Acute - Plan Acute respiratory failure. Patient is noted dessating IN 80S ON 2l nc,. abg STAT , cxr, CBC, BMP GIVE SOLUMEDROL X1 TIME IV , LASIX 20 MG IV ONCE, DUONEBS ABG reviewed patient placed on NRM and still dessating , transferred to ICU for BIPAP CXR shows congestion Continue lasix and continue albumin Repeat ABG 07/03 still hyopoxic , needs BIPAP. Patient agrees to BIPAP. Sepsis ( leukocytosis/ tachycardia) due to pneumonia; continue with IV antibiotics- cultures negative so far. Pneumonia/ right pleural effusion; Abx as noted above-cultures negative so far- neb treatments. s/p thoracentesis- cultures negative so far. ID consult appreciated. echo with EF 55%. echo was d/w ;mobile density reported on the echo probably is not significant clinically. pulmonary following. Abdominal distention/ ascites; s/p paracentesis- hepatitis panel negative- diuretics stopped due to SIERRA- GI following. IR consulted plan for TIPS 07/01/18 Esophageal ulcer/ gastritis; continue PPI- GI following. Leukocytosis- no fever and no obvious source for infection so far- will consult Oncology in light of history of CLL. Fall/ generalized weakness; consulted PT. PT recommends rehab however patient wants to go home Diabetes mellitus; started on accu-check with SSI Acute kidney injury superimposed on chronic renal insufficiency; likely hepatorenal syndrome-diuretics discontinued. nephrology following; will consider HD if no improvement in kidney function. -DVT prophylaxis with subq heparin palliative care following. FULL CODE. The patient is refusing on/off O2 supplement, NRM , and she is refusing BIPAP says she wants to go out of ICU floor. However patient ABG shows hypoxia and needs BIPAP. Discussed with the patient at length again, also discussed with the at bedside. Patient agrees to have the BiPAP on today , says she will leave AMA tomorrow. Discussed with the patient goals of care, she and wants full code and everything done, refusing hospice. DC plan. S/p TIPS by IR on 07/01/18. PT recommends rehab however patient wants to go home since her can help her however she is not safe for discharge at this time. Noted hypoxic on 07/02. Patient was transferred to ICU for BIPAP however she was refusing BIPAP , and was non compliant with NRM. ABG still with hypoxia. Patient is agreeable to BiPAP today and says will leave at home tomorrow. Keep in ICU for now as needs BipAP> Discussed with the patient, her at bedside, nurse (2) Pneumonia Qualifiers: Pneumonia type: due to unspecified organism Laterality: right Lung location : middle lobe of lung Qualified Code(s): J18.1 - Lobar pneumonia, unspecified organism
[2018-07-04] MEDS: Albumin Human 25% Inj 100 ML IV.SIG SCH ×3 (02:28→18:00)
[2018-07-04] MEDS: Octreotide Inj 50 MCG/ML Vial IV.PUSH SCH ×3 (05:44→23:36)
[2018-07-04 05:49] LABS: ABG Base Excess -6.5 mmol/L (-2-2); ABG PCO2 33 mmHg (38-42); ABG PO2 69 mmHG (61-120)
[2018-07-04 06:03] LABS: Baso # (Auto) 0.1 th/mm3 (0.0-0.2); Baso % (Auto) 0.1 % (0.0-2.0); Eos % (Auto) 0.1 % (0.0-4.0); Hematocrit 28.8 % (35.0-46.0); Hemoglobin 9.2 gm/dL (11.6-15.3); Lymph # (Auto) 29.5 th/mm3 (1.0-4.8); Lymph % (Auto) 64.4 % (9.0-44.0); Mean Corpuscular Hemoglobin 30.1 pg (27.0-34.0); Mean Platelet Volume 8.6 fL (7.0-11.0); Mono # (Auto) 1.3 th/mm3 (0.0-0.9); Mono % (Auto) 2.7 % (0.0-8.0); Neut % (Auto) 32.7 % (16.0-70.0); Platelet Count 195 th/mm3 (150-450); Red Blood Count 3.07 mil/mm3 (4.00-5.30); Red Cell Distribution Width 16.4 % (11.6-17.2); White Blood Count 45.9 th/mm3 (4.0-11.0)
[2018-07-04 06:26] LABS: Calcium 8.8 mg/dL (8.5-10.1); Carbon Dioxide 20.5 meq/L (21.0-32.0); Potassium 5.2 meq/L (3.5-5.1)
[2018-07-04 08:11] LABS: Lymphocytes 74 % (9-44); Platelet Estimate Normal (Normal); Platelet Morphology Normal (Normal)
[2018-07-04 08:12] LABS: Smudge Cells Present
[2018-07-04 08:14] LABS: Burr Cells 1+; Ovalocytes 1+
--- NOTE | 2018-07-04 08:38 | P.PN ---
Subjective Interval history: The patient is with shortness of breath on nonrebreather mask. Wean down to nasal cannula , 6 L. The patient was having BiPAP for a couple of hours yesterday. She is still short of breath however she says she wants to go home. We will also consult psychiatry for evaluating the patient. Palliative care also discussed with the patient. Patient is full code. However she is telling me she wants to see and discuss with hospice. Hospice consult was placed. Physical Exam Vital signs: Vital Signs 07/03/18 09:00 07/03/18 09:01 07/03/18 09:37 Temperature Pulse Rate 56 L 61 61 Respiratory Rate 26 H 21 29 H Blood Pressure 120/60 136/62 Pulse Oximetry 81 L 80 L 87 L 07/03/18 10:00 07/03/18 10:31 07/03/18 11:00 Temperature Pulse Rate 58 L 60 61 Respiratory Rate 21 25 H 19 Blood Pressure 120/56 L 131/56 L Pulse Oximetry 90 L 93 L 97 07/03/18 11:31 07/03/18 12:00 07/03/18 12:01 Temperature 97.9 F Pulse Rate 61 58 L 59 L Respiratory Rate 24 19 22 Blood Pressure 131/60 121/56 L 121/56 L Pulse Oximetry 97 96 96 07/03/18 12:30 07/03/18 13:00 07/03/18 14:00 Temperature Pulse Rate 56 L 58 L 61 Respiratory Rate 24 26 H 30 H Blood Pressure 115/71 Pulse Oximetry 97 95 88 L 07/03/18 14:06 07/03/18 14:31 07/03/18 14:54 Temperature Pulse Rate 67 62 59 L Respiratory Rate 21 24 20 Blood Pressure 118/58 L 122/54 L Pulse Oximetry 89 L 90 L 07/03/18 15:00 07/03/18 15:01 07/03/18 15:30 Temperature Pulse Rate 58 L 58 L 59 L Respiratory Rate 13 17 19 Blood Pressure 122/56 L 113/54 L Pulse Oximetry 100 100 95 07/03/18 16:00 07/03/18 16:01 07/03/18 16:30 Temperature 97.5 F L Pulse Rate 59 L 59 L 60 Respiratory Rate 27 H 29 H 28 H Blood Pressure 108/57 L 108/57 L 119/59 L Pulse Oximetry 99 98 95 07/03/18 17:00 07/03/18 17:30 07/03/18 18:00 Temperature Pulse Rate 56 L 56 L 59 L Respiratory Rate 18 15 23 Blood Pressure 108/55 L 112/55 L 112/56 L Pulse Oximetry 96 98 99 07/03/18 18:30 07/03/18 19:00 07/03/18 19:01 Temperature Pulse Rate 54 L 53 L 52 L Respiratory Rate 13 16 14 Blood Pressure 112/58 L 106/55 L Pulse Oximetry 99 96 96 07/03/18 19:30 07/03/18 20:00 07/03/18 20:08 Temperature 97.9 F Pulse Rate 54 L 50 L 58 L Respiratory Rate 13 18 16 Blood Pressure 111/56 L 103/52 L Pulse Oximetry 93 L 95 07/03/18 20:09 07/03/18 20:12 07/03/18 20:30 Temperature Pulse Rate 50 L Respiratory Rate 15 Blood Pressure 115/57 L Pulse Oximetry 97 99 99 07/03/18 21:00 07/03/18 21:30 07/03/18 22:00 Temperature Pulse Rate 52 L 47 L 49 L Respiratory Rate 13 13 13 Blood Pressure 106/55 L 104/57 L 102/55 L Pulse Oximetry 100 96 97 07/03/18 22:30 07/03/18 23:00 07/03/18 23:30 Temperature Pulse Rate 50 L 50 L 49 L Respiratory Rate 13 10 L 14 Blood Pressure 100/56 L 105/55 L 93/50 L Pulse Oximetry 97 95 90 L 07/03/18 23:47 07/03/18 23:49 07/04/18 00:00 Temperature 97.4 F L Pulse Rate 49 L Respiratory Rate 15 Blood Pressure 85/50 L Pulse Oximetry 97 97 95 07/04/18 00:30 07/04/18 01:00 07/04/18 01:30 Temperature Pulse Rate 50 L 52 L 51 L Respiratory Rate 14 20 14 Blood Pressure 97/55 L 99/50 L 94/51 L Pulse Oximetry 97 97 98 07/04/18 02:00 07/04/18 02:30 07/04/18 03:00 Temperature Pulse Rate 46 L 50 L 49 L Respiratory Rate 13 13 14 Blood Pressure 94/50 L 93/55 L 100/50 L Pulse Oximetry 99 96 97 07/04/18 03:30 07/04/18 04:00 07/04/18 04:24 Temperature 98 F Pulse Rate 51 L 48 L Respiratory Rate 13 12 Blood Pressure 97/54 L 90/54 L Pulse Oximetry 100 98 97 07/04/18 04:33 07/04/18 06:34 07/04/18 08:06 Temperature Pulse Rate 49 L Respiratory Rate 13 Blood Pressure 109/54 L Pulse Oximetry 96 95 95 07/04/18 08:07 Temperature Pulse Rate 56 L Respiratory Rate 18 Blood Pressure Pulse Oximetry Intake & Output 07/03/18 07/04/18 07/04/18 18:59 06:59 18:59 Intake Total 590 / 590 640 / 640 Output Total 100 / 100 Balance 490 / 490 640 / 640 Weight 82 kg Intake: IV 350 / 350 400 / 400 Flexbumin 25% Inj 100 ML @ 60 200 / 200 200 / 200 mls/hr IV.SIG Q8H [facility] Rx#: [id number] Levaquin 250 mg Premix Inj 250 50 / 50 mg In 50 ml @ 50 mls/hr IV.SIG Q24H [facility] Rx#:[id number] Flagyl 500 MG Inj 100 ML @ 100 100 / 100 200 / 200 mls/hr IV.SIG Q8H [facility] Rx#: [id number] Oral 240 / 240 240 / 240 Output: Urine 100 / 100 Other: # Incontinent Voids 2 Date of Last Bowel Movement 07/03/18 07/04/18 # Bowel Movements 1 # Incontinent Bowel Movements 2 Narrative: GENERAL: 72 yo female, chronically ill, appears sob. Refusing on/off O2 supplement SKIN: Cool and dry. Drg on right side of neck. CARDIOVASCULAR: Regular rate and rhythm. No murmurs, rubs or gallops heard RESPIRATORY: Decreased breath sounds at bases. Bibasilar crackles. SOB. On 6L NC. No use of accessory muscles. ABDOMEN: non-tender, mildly distended. Bowel sounds present and normoactive. No guarding. No rebound. EXTREMITIES: No clubbing, cyanosis. Well perfused and warm. NEUROLOGICAL: Awake and alert. Cranial nerves grossly intact. Motor grossly within normal limits. PSYCHIATRIC: Normal affect, calm and cooperative. Results - Labs CBC & Chem 7: 07/04/18 04:12 07/04/18 04:12 Laboratory Results - last 24 hr 07/03/18 07/03/18 07/03/18 11:30 11:30 12:02 WBC 60.2 H RBC 3.39 L Hgb 10.2 L Hct 32.6 L MCV 96.2 MCH 30.0 MCHC 31.2 L RDW 17.1 Plt Count 279 MPV 8.6 Prelim Diff (Auto) Slide review pending Neut % (Auto) 33.3 Lymph % (Auto) 64.5 H [place] % (Auto) 2.0 Eos % (Auto) 0.0 Baso % (Auto) 0.2 Neut # (Auto) 20.0 H Lymph # (Auto) 38.8 H [place] # (Auto) 1.2 H Eos # (Auto) 0.0 Baso # (Auto) 0.1 WBC Differential Manual diff final Seg Neuts % (Manual) 34 Band Neuts % (Manual) 1 Lymphocytes % (Manual) 64 H Monocytes % (Manual) 1 Abs Neuts (Manual) 21.1 H Differential Comment . Smudge Cells Present H Platelet Estimate Normal Platelet Morphology Normal RBC Morphology Normal Ovalocytes Raz Cells Puncture Site Left radial Patient Temperature 98.6 O2 Saturation 86 L* ABG pH 7.31 L ABG pCO2 36 L ABG pO2 53 L* ABG HCO3 17 L ABG O2 Content 12.0 ABG Base Excess -7.7 L ABG Methemoglobin 1.3 Ulysses Test Present Hemoglobin 9.9 L Carboxyhemoglobin 1.3 O2 Delivery Device Nasal cannula Liter Flow 6.00 Inspired O2 Critical Value Yes Sodium 138 Potassium 5.6 H Chloride 106 Carbon Dioxide 21.5 Anion Gap 11 BUN 70 H Creatinine 4.31 H Estimated GFR 10 L POC Glucose Random Glucose 195 H Calcium 8.8 D 07/03/18 07/03/18 07/03/18 12:04 16:39 19:46 WBC RBC Hgb Hct MCV MCH MCHC RDW Plt Count MPV Prelim Diff (Auto) Neut % (Auto) Lymph % (Auto) [place] % (Auto) Eos % (Auto) Baso % (Auto) Neut # (Auto) Lymph # (Auto) [place] # (Auto) Eos # (Auto) Baso # (Auto) WBC Differential Seg Neuts % (Manual) Band Neuts % (Manual) Lymphocytes % (Manual) Monocytes % (Manual) Abs Neuts (Manual) Differential Comment Smudge Cells Platelet Estimate Platelet Morphology RBC Morphology Ovalocytes [place] Cells Puncture Site Patient Temperature O2 Saturation ABG pH ABG pCO2 ABG pO2 ABG HCO3 ABG O2 Content ABG Base Excess ABG Methemoglobin Ulysses Test Hemoglobin Carboxyhemoglobin O2 Delivery Device Liter Flow Inspired O2 Critical Value Sodium Potassium Chloride Carbon Dioxide Anion Gap BUN Creatinine Estimated GFR POC Glucose 249 H 209 H 162 H Random Glucose Calcium 07/04/18 07/04/18 07/04/18 04:12 04:12 05:37 WBC 45.9 H RBC 3.07 L Hgb 9.2 L Hct 28.8 L MCV 94.0 MCH 30.1 MCHC 32.0 RDW 16.4 Plt Count 195 D MPV 8.6 Prelim Diff (Auto) Slide review pending Neut % (Auto) 32.7 Lymph % (Auto) 64.4 H [place] % (Auto) 2.7 Eos % (Auto) 0.1 Baso % (Auto) 0.1 Neut # (Auto) 15.0 H Lymph # (Auto) 29.5 H [place] # (Auto) 1.3 H Eos # (Auto) 0.0 Baso # (Auto) 0.1 WBC Differential Manual diff final Seg Neuts % (Manual) 25 Band Neuts % (Manual) 1 Lymphocytes % (Manual) 74 H Monocytes % (Manual) Abs Neuts (Manual) 11.9 H Differential Comment . Smudge Cells Present H Platelet Estimate Normal Platelet Morphology Normal RBC Morphology Ovalocytes 1+ H [place] Cells 1+ H Puncture Site Right radial Patient Temperature 98.6 O2 Saturation 90 ABG pH 7.35 L ABG pCO2 33 L ABG pO2 69 ABG HCO3 18 L ABG O2 Content 11.4 L ABG Base Excess -6.5 L ABG Methemoglobin 1.5 Ulysses Test Present Hemoglobin 8.9 L Carboxyhemoglobin 1.1 O2 Delivery Device Bipap 12/ 5/55% Liter Flow Inspired O2 55 Critical Value No Sodium 140 Potassium 5.2 H Chloride 108 H Carbon Dioxide 20.5 L Anion Gap 12 BUN 77 H Creatinine 4.59 H Estimated GFR 9 L POC Glucose Random Glucose 105 Calcium 8.8 Assessment and Plan - Assessment (1) Acute on chronic kidney failure Code(s): N17.9 - Acute kidney failure, unspecified; N18.9 - Chronic kidney disease, unspecified Status: Acute (2) Pneumonia Code(s): J18.9 - Pneumonia, unspecified organism Status: Acute (3) Diabetes Code(s): E11.9 - Type 2 diabetes mellitus without complications Status: Acute (4) Abdominal distension Code(s): R14.0 - Abdominal distension (gaseous) Status: Acute - Plan Acute respiratory failure. Patient is noted dessating in 80s while on 2L NC abg STAT , cxr, CBC, BMP Received SOLUMEDROL X1 TIME IV , LASIX 20 MG IV ONCE, DUONEBS ABG reviewed patient placed on NRM and still dessating , transferred to ICU for BIPAP CXR shows congestion Continue lasix and continue albumin Repeat ABG 07/03 still hyopoxic , needs BIPAP. Patient agrees to BIPAP. Noted hypoxic starting on 07/02. Patient was transferred to ICU for BIPAP however she was refusing BIPAP , and was non compliant with NRM. Was having BiPAP for a couple of hours on 07/03 , on/off with NRM and O2 at 6L. Patient threatens to leave AMA Wants to discussed with hospice options to go home. Sepsis ( leukocytosis/ tachycardia) due to pneumonia; continue with IV antibiotics- cultures negative so far. Pneumonia/ right pleural effusion; Abx as noted above-cultures negative so far- neb treatments. s/p thoracentesis- cultures negative so far. ID consult appreciated. echo with EF 55%. echo was d/w ;mobile density reported on the echo probably is not significant clinically. pulmonary following. Abdominal distention/ ascites; s/p paracentesis- hepatitis panel negative- diuretics stopped due to SIERRA- GI following. IR consulted plan for TIPS 07/01/18 Esophageal ulcer/ gastritis; continue PPI- GI following. Leukocytosis- no fever and no obvious source for infection so far- will consult Oncology in light of history of CLL. Fall/ generalized weakness; consulted PT. PT recommends rehab however patient wants to go home Diabetes mellitus; started on accu-check with SSI Acute kidney injury superimposed on chronic renal insufficiency; likely hepatorenal syndrome-diuretics discontinued. nephrology following; will consider HD if no improvement in kidney function. -DVT prophylaxis with subq heparin palliative care following. FULL CODE. The patient is refusing on/off O2 supplement, NRM , and she is refusing BIPAP says she wants to go out of ICU floor. However patient ABG shows hypoxia and needs BIPAP. Discussed with the patient at length again, also discussed with the at bedside. Patient agrees to have the BiPAP on today 07/03 , says she will leave AMA tomorrow. Discussed with the patient goals of care, she and wants full code and everything done, refusing hospice. DC plan. S/p TIPS by IR on 07/01/18. PT recommends rehab however patient wants to go home since her can help her however she is not safe for discharge at this time. Noted hypoxic starting on 07/02. Patient was transferred to ICU for BIPAP however she was refusing BIPAP , and was non compliant with NRM. Was having BiPAP for a couple of hours on 07/03 , on/off with NRM and O2 at 6L. Patient threatens to leave AMA Wants to discussed with hospice options to go home. Psych consulted for eval if patient can make decisions to leave AMA says he can;t take care of her at home Yogesh transfer out of ICU as patient is refusing BiPAP and also repeat ABG in the morning is reassuring. Discussed with the patient, her at bedside, nurse, Palliative care service (2) Pneumonia Qualifiers: Pneumonia type: due to unspecified organism Laterality: right Lung location : middle lobe of lung Qualified Code(s): J18.1 - Lobar pneumonia, unspecified organism
[2018-07-04] MEDS: Nadolol 20 MG Tablet PO SCH (09:12)
[2018-07-04] MEDS: Insulin NovoLOG Aspart Correctional Sugar Inj SQ SCH ×4 (09:13→23:45)
[2018-07-04] MEDS: Levofloxacin 250 mg Premix Inj 250 MG/50 ML PIGGYBACK IV.SIG SCH (09:13)
--- NOTE | 2018-07-04 10:20 | P.PNNP ---
Subjective Interval history: Patient was seen, had complaints about being on Bipap last night. Per nurse, patient wanted to leave AMA. Renal function has declined. <Des Arora - Last Filed: 07/04/18 10:21> Physical Exam Vital signs: Vital Signs 07/03/18 10:31 07/03/18 11:00 07/03/18 11:31 Temperature Pulse Rate 60 61 61 Respiratory Rate 25 H 19 24 Blood Pressure 120/56 L 131/56 L 131/60 Pulse Oximetry 93 L 97 97 07/03/18 12:00 07/03/18 12:01 07/03/18 12:30 Temperature 97.9 F Pulse Rate 58 L 59 L 56 L Respiratory Rate 19 22 24 Blood Pressure 121/56 L 121/56 L 115/71 Pulse Oximetry 96 96 97 07/03/18 13:00 07/03/18 14:00 07/03/18 14:06 Temperature Pulse Rate 58 L 61 67 Respiratory Rate 26 H 30 H 21 Blood Pressure 118/58 L Pulse Oximetry 95 88 L 89 L 07/03/18 14:31 07/03/18 14:54 07/03/18 15:00 Temperature Pulse Rate 62 59 L 58 L Respiratory Rate 24 20 13 Blood Pressure 122/54 L Pulse Oximetry 90 L 100 07/03/18 15:01 07/03/18 15:30 07/03/18 16:00 Temperature 97.5 F L Pulse Rate 58 L 59 L 59 L Respiratory Rate 17 19 27 H Blood Pressure 122/56 L 113/54 L 108/57 L Pulse Oximetry 100 95 99 07/03/18 16:01 07/03/18 16:30 07/03/18 17:00 Temperature Pulse Rate 59 L 60 56 L Respiratory Rate 29 H 28 H 18 Blood Pressure 108/57 L 119/59 L 108/55 L Pulse Oximetry 98 95 96 07/03/18 17:30 07/03/18 18:00 07/03/18 18:30 Temperature Pulse Rate 56 L 59 L 54 L Respiratory Rate 15 23 13 Blood Pressure 112/55 L 112/56 L 112/58 L Pulse Oximetry 98 99 99 07/03/18 19:00 07/03/18 19:01 07/03/18 19:30 Temperature Pulse Rate 53 L 52 L 54 L Respiratory Rate 16 14 13 Blood Pressure 106/55 L 111/56 L Pulse Oximetry 96 96 93 L 07/03/18 20:00 07/03/18 20:08 07/03/18 20:09 Temperature 97.9 F Pulse Rate 50 L 58 L Respiratory Rate 18 16 Blood Pressure 103/52 L Pulse Oximetry 95 97 07/03/18 20:12 07/03/18 20:30 07/03/18 21:00 Temperature Pulse Rate 50 L 52 L Respiratory Rate 15 13 Blood Pressure 115/57 L 106/55 L Pulse Oximetry 99 99 100 07/03/18 21:30 07/03/18 22:00 07/03/18 22:30 Temperature Pulse Rate 47 L 49 L 50 L Respiratory Rate 13 13 13 Blood Pressure 104/57 L 102/55 L 100/56 L Pulse Oximetry 96 97 97 07/03/18 23:00 07/03/18 23:30 07/03/18 23:47 Temperature Pulse Rate 50 L 49 L Respiratory Rate 10 L 14 Blood Pressure 105/55 L 93/50 L Pulse Oximetry 95 90 L 97 07/03/18 23:49 07/04/18 00:00 07/04/18 00:30 Temperature 97.4 F L Pulse Rate 49 L 50 L Respiratory Rate 15 14 Blood Pressure 85/50 L 97/55 L Pulse Oximetry 97 95 97 07/04/18 01:00 07/04/18 01:30 07/04/18 02:00 Temperature Pulse Rate 52 L 51 L 46 L Respiratory Rate 20 14 13 Blood Pressure 99/50 L 94/51 L 94/50 L Pulse Oximetry 97 98 99 07/04/18 02:30 07/04/18 03:00 07/04/18 03:30 Temperature Pulse Rate 50 L 49 L 51 L Respiratory Rate 13 14 13 Blood Pressure 93/55 L 100/50 L 97/54 L Pulse Oximetry 96 97 100 07/04/18 04:00 07/04/18 04:24 07/04/18 04:33 Temperature 98 F Pulse Rate 48 L 49 L Respiratory Rate 12 13 Blood Pressure 90/54 L 109/54 L Pulse Oximetry 98 97 96 07/04/18 06:34 07/04/18 08:06 07/04/18 08:07 Temperature Pulse Rate 56 L Respiratory Rate 18 Blood Pressure Pulse Oximetry 95 95 Intake & Output 07/03/18 07/04/18 07/04/18 18:59 06:59 18:59 Intake Total 590 / 590 640 / 640 Output Total 100 / 100 Balance 490 / 490 640 / 640 Weight 82 kg Intake: IV 350 / 350 400 / 400 Flexbumin 25% Inj 100 ML @ 60 200 / 200 200 / 200 mls/hr IV.SIG Q8H [facility] Rx#: [id number] Levaquin 250 mg Premix Inj 250 50 / 50 mg In 50 ml @ 50 mls/hr IV.SIG Q24H [facility] Rx#:[id number] Flagyl 500 MG Inj 100 ML @ 100 100 / 100 200 / 200 mls/hr IV.SIG Q8H [facility] Rx#: [id number] Oral 240 / 240 240 / 240 Output: Urine 100 / 100 Other: # Incontinent Voids 2 Date of Last Bowel Movement 07/03/18 07/04/18 # Bowel Movements 1 # Incontinent Bowel Movements 2 Narrative: GENERAL: Chronically ill appearing, on face mask O2. SKIN: Cool and dry. CARDIOVASCULAR: Regular rate and rhythm. No murmurs, rubs or gallops heard RESPIRATORY: Decreased breath sounds at bases. No use of accessory muscles. ABDOMEN: non-tender, mildly distended. Bowel sounds present and normoactive. No guarding. No rebound. EXTREMITIES: No clubbing, cyanosis. Well perfused and warm. NEUROLOGICAL: Awake and alert. Cranial nerves grossly intact. Motor grossly within normal limits. PSYCHIATRIC: Normal affect. <Des Arora - Last Filed: 07/04/18 10:21> Vital signs: Vital Signs 07/04/18 08:31 07/04/18 09:00 07/04/18 10:00 Temperature Pulse Rate 55 L 57 L 60 Respiratory Rate 13 16 23 Blood Pressure 110/58 L 121/67 Pulse Oximetry 97 95 92 L 07/04/18 10:01 07/04/18 10:30 07/04/18 11:00 Temperature Pulse Rate 60 60 59 L Respiratory Rate 27 H 21 21 Blood Pressure 119/56 L 131/60 Pulse Oximetry 92 L 92 L 95 07/04/18 11:01 07/04/18 11:30 07/04/18 11:52 Temperature Pulse Rate 55 L 58 L Respiratory Rate 16 18 Blood Pressure 132/62 119/64 Pulse Oximetry 95 94 L 95 07/04/18 12:00 07/04/18 12:01 07/04/18 13:00 Temperature 97.8 F Pulse Rate 58 L 57 L 54 L Respiratory Rate 23 21 22 Blood Pressure 106/68 106/68 Pulse Oximetry 93 L 92 L 88 L 07/04/18 14:00 07/04/18 14:08 07/04/18 15:00 Temperature Pulse Rate 62 61 61 Respiratory Rate 24 18 22 Blood Pressure 149/70 H Pulse Oximetry 91 L 93 L 90 L 07/04/18 16:00 07/04/18 16:01 07/04/18 17:00 Temperature 98.0 F Pulse Rate 60 60 59 L Respiratory Rate 20 18 16 Blood Pressure 117/55 L 117/55 L 124/59 L Pulse Oximetry 92 L 93 L 90 L 07/04/18 18:00 07/04/18 18:01 07/04/18 19:00 Temperature Pulse Rate 64 64 63 Respiratory Rate 31 H 34 H 24 Blood Pressure 113/55 L Pulse Oximetry 83 L 83 L 87 L 07/04/18 19:01 07/04/18 19:36 07/04/18 19:37 Temperature Pulse Rate 63 62 Respiratory Rate 23 22 Blood Pressure 137/62 Pulse Oximetry 87 L 93 L 07/04/18 20:00 07/04/18 21:00 07/04/18 22:00 Temperature 97.8 F Pulse Rate 60 62 54 L Respiratory Rate 27 H 21 14 Blood Pressure 117/59 L 117/58 L 105/55 L Pulse Oximetry 92 L 88 L 89 L 07/04/18 23:00 07/04/18 23:29 07/05/18 00:00 Temperature Pulse Rate 61 59 L Respiratory Rate 17 22 Blood Pressure 109/52 L Pulse Oximetry 85 L 93 L 84 L 07/05/18 00:04 07/05/18 01:00 07/05/18 02:00 Temperature 97.8 F Pulse Rate 59 L 61 61 Respiratory Rate 26 H 23 31 H Blood Pressure 109/56 L 108/52 L 112/60 Pulse Oximetry 87 L 71 L 87 L 07/05/18 03:00 07/05/18 04:00 07/05/18 07:36 Temperature 98.2 F Pulse Rate 59 L 58 L 61 Respiratory Rate 18 32 H 18 Blood Pressure 137/68 128/62 Pulse Oximetry 93 L 88 L 96 Intake & Output 12/07/05/18 07/05/18 18:59 06:59 18:59 Intake Total 650 / 650 330 / 330 Output Total 150 / 150 Balance 500 / 500 330 / 330 Weight 82 kg Intake: IV 250 / 250 210 / 210 Flexbumin 25% Inj 100 ML @ 60 100 / 100 110 / 110 mls/hr IV.SIG Q8H [facility] Rx#: [id number] Levaquin 250 mg Premix Inj 250 50 / 50 mg In 50 ml @ 50 mls/hr IV.SIG Q24H [facility] Rx#:[id number] Flagyl 500 MG Inj 100 ML @ 100 100 / 100 100 / 100 mls/hr IV.SIG Q8H [facility] Rx#: [id number] Oral 400 / 400 120 / 120 Output: Urine 150 / 150 Other: # Voids 2 # Incontinent Voids 1 Date of Last Bowel Movement 07/04/18 07/04/18 # Incontinent Bowel Movements 0 <Papi Busby - Last Filed: 07/05/18 08:10> Assessment and Plan - Assessment (1) Acute on chronic kidney failure Code(s): N17.9 - Acute kidney failure, unspecified; N18.9 - Chronic kidney disease, unspecified Status: Acute Plan: Patient has chronic kidney disease and possibly has ATN. Renal function has declined, Creatinine is 4.59. Started on Lasix 07/02. Documented urine output - 450 mL yesterday. Monitor for renal recovery. Monitor urine output. (2) Diabetes Code(s): E11.9 - Type 2 diabetes mellitus without complications Status: Acute Plan: Insulin coverage to maintain glucose levels between 140 and 180. (3) Abdominal distension Code(s): R14.0 - Abdominal distension (gaseous) Status: Acute Plan: s/p paracentesis x2. - Plan S/P TIPS procedure 07/01/18 <Des Arora - Last Filed: 07/04/18 10:21> - Assessment (1) Acute on chronic kidney failure Code(s): N17.9 - Acute kidney failure, unspecified; N18.9 - Chronic kidney disease, unspecified Status: Acute (2) Diabetes Code(s): E11.9 - Type 2 diabetes mellitus without complications Status: Acute (3) Abdominal distension Code(s): R14.0 - Abdominal distension (gaseous) Status: Acute - Attending Attestation patient was seen and examined. Renal function continues to worsen. May have hepatorenal syndrome at this point. If so, she could be in a terminal situation. <Papi Busby - Last Filed: 07/05/18 08:10>
--- NOTE | 2018-07-04 14:21 | P.PNPAL ---
Reason for Visit Reason for visit: a. To assist with evaluation and management of symptoms including: Shortness of breath, debility b. To assist medical decision maker(s) with: better understanding of current medical conditions; weighing benefits/burdens of medical treatment options; making medical treatment decisions. Subjective Subjective/Interval History: Follow-up medically necessary for symptom management and further clarification of goals of medical treatment. Patient was seen and examined in the room on MICU. She was transferred to ICU on 07/01/18 after developing hypoxia status post TIPS procedure. ABG results on 07/02/18 revealed pH 7.27, PCO2 48, PO2 54 , HCO3 21, base excess -4.5, O2 saturation 80% on 5 L nasal cannula. She was placed on a nonrebreather mask O2 15 L on 07/03/18 with little improvement on ABG. Patient was then placed on BiPAP 50 5% on 07/04 with slight improvement on ABG. Renal function worsening with laboratory workup on 07/04/18 revealing sodium 140 , potassium 5.2, BUN/creatinine 77/4.59, random glucose 105, calcium 8.8. Nephrology following. Patient is alert, oriented to self, place and situation. Patient seen in the presence of her and a friend. She is denying pain, and shortness of breath though she is dyspneic with conversation and evidently has a drop in the oxygen saturation to the low 80s during conversation. Patient is adamant that she is going home today. Patient states that she does not want to use the BiPAP machine because she is claustrophobic. Discussed possibility of starting patient on low-dose Xanax to help with that. Patient refused and says that no- matter what she will not use the BiPAP machine and is leaving the hospital anyway. she states that even if it means signing AGAINST MEDICAL ADVICE she will. Readdressed goals of care and patient indicates that she still wants aggressive treatment. Readdressed code status and patient still wants to be a FUll code. She still wants to be resuscitated or put on life support if need be. She reiterates that aggressive care should be stopped only if she is in a vegetative state. Patient continuously stating that she wants to go home today. Expressed concern that patient is requiring 6 L of oxygen nasal cannula with her oxygen saturation only in the low 80s and that the medical team does not feel that she is ready to be discharged home yet. Patient understands that if she goes home, she will most likely get worse. She does understand that her condition may worsen and she stated that she would call 911 and be brought back to the hospital if her condition worsens. Patient spouse does not agree with patient being allowed to leave the hospital AGAINST MEDICAL ADVICE. He does not want her to be discharged if not medically stable. Introduced hospice philosophy and benefits. Patient and spouse both do not want hospice services at this time due to bad experiences they have had in the past when some of their close family members were enrolled in hospice. Despite the fact that they both have bad experiences with hospice, patient`s goals are aggressive and not comfort oriented. Psychiatry consult placed to determine capacity. Case discussed with bedside RN Indu and Dr. Fields. . Family/Friend Interactions: See interval note. . Advance Directives Living Will: Never completed Health Care Surrogate: Copy in medical record Durable Power of Childcare Teacher: Never completed Advance Directives Date on File: 06/29/18 Health Care Surrogate Name and Number: HCS: Higinio Clarence [phone] Alt: Bharat Willard Objective Vital Signs: Vital Signs 07/03/18 14:00 07/03/18 14:06 07/03/18 14:31 Temperature Pulse Rate 61 67 62 Respiratory Rate 30 H 21 24 Blood Pressure 118/58 L 122/54 L Pulse Oximetry 88 L 89 L 90 L 07/03/18 14:54 07/03/18 15:00 07/03/18 15:01 Temperature Pulse Rate 59 L 58 L 58 L Respiratory Rate 20 13 17 Blood Pressure 122/56 L Pulse Oximetry 100 100 07/03/18 15:30 07/03/18 16:00 07/03/18 16:01 Temperature 97.5 F L Pulse Rate 59 L 59 L 59 L Respiratory Rate 19 27 H 29 H Blood Pressure 113/54 L 108/57 L 108/57 L Pulse Oximetry 95 99 98 07/03/18 16:30 07/03/18 17:00 07/03/18 17:30 Temperature Pulse Rate 60 56 L 56 L Respiratory Rate 28 H 18 15 Blood Pressure 119/59 L 108/55 L 112/55 L Pulse Oximetry 95 96 98 07/03/18 18:00 07/03/18 18:30 07/03/18 19:00 Temperature Pulse Rate 59 L 54 L 53 L Respiratory Rate 23 13 16 Blood Pressure 112/56 L 112/58 L Pulse Oximetry 99 99 96 07/03/18 19:01 07/03/18 19:30 07/03/18 20:00 Temperature 97.9 F Pulse Rate 52 L 54 L 50 L Respiratory Rate 14 13 18 Blood Pressure 106/55 L 111/56 L 103/52 L Pulse Oximetry 96 93 L 95 07/03/18 20:08 07/03/18 20:09 07/03/18 20:12 Temperature Pulse Rate 58 L Respiratory Rate 16 Blood Pressure Pulse Oximetry 97 99 07/03/18 20:30 07/03/18 21:00 07/03/18 21:30 Temperature Pulse Rate 50 L 52 L 47 L Respiratory Rate 15 13 13 Blood Pressure 115/57 L 106/55 L 104/57 L Pulse Oximetry 99 100 96 07/03/18 22:00 07/03/18 22:30 07/03/18 23:00 Temperature Pulse Rate 49 L 50 L 50 L Respiratory Rate 13 13 10 L Blood Pressure 102/55 L 100/56 L 105/55 L Pulse Oximetry 97 97 95 07/03/18 23:30 07/03/18 23:47 07/03/18 23:49 Temperature Pulse Rate 49 L Respiratory Rate 14 Blood Pressure 93/50 L Pulse Oximetry 90 L 97 97 07/04/18 00:00 07/04/18 00:30 07/04/18 01:00 Temperature 97.4 F L Pulse Rate 49 L 50 L 52 L Respiratory Rate 15 14 20 Blood Pressure 85/50 L 97/55 L 99/50 L Pulse Oximetry 95 97 97 07/04/18 01:30 07/04/18 02:00 07/04/18 02:30 Temperature Pulse Rate 51 L 46 L 50 L Respiratory Rate 14 13 13 Blood Pressure 94/51 L 94/50 L 93/55 L Pulse Oximetry 98 99 96 07/04/18 03:00 07/04/18 03:30 07/04/18 04:00 Temperature 98 F Pulse Rate 49 L 51 L 48 L Respiratory Rate 14 13 12 Blood Pressure 100/50 L 97/54 L 90/54 L Pulse Oximetry 97 100 98 07/04/18 04:24 07/04/18 04:33 07/04/18 06:34 Temperature Pulse Rate 49 L Respiratory Rate 13 Blood Pressure 109/54 L Pulse Oximetry 97 96 95 07/04/18 08:06 07/04/18 08:07 07/04/18 11:52 Temperature Pulse Rate 56 L Respiratory Rate 18 Blood Pressure Pulse Oximetry 95 95 Intake & Output 07/03/18 07/04/18 07/04/18 18:59 06:59 18:59 Intake Total 590 / 590 640 / 640 50 / 50 Output Total 100 / 100 Balance 490 / 490 640 / 640 50 / 50 Weight 82 kg Intake: IV 350 / 350 400 / 400 50 / 50 Flexbumin 25% Inj 100 ML @ 60 200 / 200 200 / 200 mls/hr IV.SIG Q8H SHILPI Rx#: [id number] Levaquin 250 mg Premix Inj 250 50 / 50 50 / 50 mg In 50 ml @ 50 mls/hr IV.SIG Q24H SHILPI Rx#:[id number] Flagyl 500 MG Inj 100 ML @ 100 100 / 100 200 / 200 mls/hr IV.SIG Q8H SHILPI Rx#: [id number] Oral 240 / 240 240 / 240 Output: Urine 100 / 100 Other: # Incontinent Voids 2 Date of Last Bowel Movement 07/03/18 07/04/18 07/04/18 # Bowel Movements 1 # Incontinent Bowel Movements 2 Physical Exam: CONSTITUTIONAL/GENERAL: This is a chronically ill looking elderly patient, in no acute distress TUBES/LINES/DRAINS: PIV, nasal cannula SKIN: Pale. Slightly jaundiced. Ecchymoses on upper extremities. No wounds seen anteriorly. Skin temperature appropriate. Not diaphoretic. HEAD: Atraumatic. Normocephalic. EYES: Pupils equal and round and reactive. Extraocular motions intact. No scleral icterus. No injection or drainage. Fundi not examined. ENT: Hearing grossly normal. Nose without bleeding or purulent drainage. Edentulous. NECK: Trachea midline. Supple, nontender. CARDIOVASCULAR: S1, S2 normal. No JVD. Peripheral pulses symmetric. RESPIRATORY/CHEST: Symmetric, mildly labored. Diminished breath sounds no wheezes, rales, or rhonchi. GASTROINTESTINAL: Abdomen soft, non-tender, distended. No guarding. Hypoactive bowel sounds. GENITOURINARY: Without palpable bladder distension. MUSCULOSKELETAL: Extremities without clubbing, cyanosis, or edema. No joint tenderness or effusion noted. No calf tenderness. No mottling or clubbing. LYMPHATICS: Did not assess NEUROLOGICAL: Awake and alert. Motor and sensory grossly within normal limits. Follows commands. Cognitively sharp. Moves all extremities. PSYCHIATRIC: No obvious anxiety/depression. no apparent hallucinations or other psychotic thought process. Diagnostic Tests Laboratory: Laboratory Results - last 72 hr 06/26/18 07/01/18 07/01/18 07:48 16:37 18:04 WBC RBC Hgb Hct MCV MCH MCHC RDW Plt Count MPV Prelim Diff (Auto) Neut % (Auto) Lymph % (Auto) G[place]pie % (Auto) Eos % (Auto) Baso % (Auto) Neut # (Auto) Lymph # (Auto) [place]pie # (Auto) Eos # (Auto) Baso # (Auto) WBC Differential Seg Neuts % (Manual) Band Neuts % (Manual) Lymphocytes % (Manual) Monocytes % (Manual) Abs Neuts (Manual) Differential Comment Smudge Cells Platelet Estimate Platelet Morphology RBC Morphology Ovalocytes Raz Cells Puncture Site Patient Temperature O2 Saturation ABG pH ABG pCO2 ABG pO2 ABG HCO3 ABG O2 Content ABG Base Excess ABG Methemoglobin [place] Test Hemoglobin Carboxyhemoglobin O2 Delivery Device Liter Flow Inspired O2 Critical Value Sodium Potassium Chloride Carbon Dioxide Anion Gap BUN Creatinine Estimated GFR POC Glucose 148 H 140 H 151 H Random Glucose Calcium Total Bilirubin AST ALT Alkaline Phosphatase Ammonia Troponin I Total Protein Albumin Nasal Screen MRSA (PCR) 07/01/18 07/02/18 07/02/18 20:54 06:00 06:20 WBC RBC Hgb Hct MCV MCH MCHC RDW Plt Count MPV Prelim Diff (Auto) Neut % (Auto) Lymph % (Auto) [place]pie % (Auto) Eos % (Auto) Baso % (Auto) Neut # (Auto) Lymph # (Auto) [place]pie # (Auto) Eos # (Auto) Baso # (Auto) WBC Differential Seg Neuts % (Manual) Band Neuts % (Manual) Lymphocytes % (Manual) Monocytes % (Manual) Abs Neuts (Manual) Differential Comment Smudge Cells Platelet Estimate Platelet Morphology RBC Morphology Ovalocytes Raz Cells Puncture Site Patient Temperature O2 Saturation ABG pH ABG pCO2 ABG pO2 ABG HCO3 ABG O2 Content ABG Base Excess ABG Methemoglobin [place] Test Hemoglobin Carboxyhemoglobin O2 Delivery Device Liter Flow Inspired O2 Critical Value Sodium 141 Potassium 5.3 H Chloride 109 H Carbon Dioxide 24.7 Anion Gap 7 BUN 57 H Creatinine 3.39 H Estimated GFR 13 L POC Glucose 148 H Random Glucose 143 H Calcium 8.0 L Total Bilirubin 1.2 H AST 45 H ALT 16 Alkaline Phosphatase 89 Ammonia 34 H Troponin I Total Protein 6.1 L D Albumin 3.8 Nasal Screen MRSA (PCR) 07/02/18 07/02/18 07/02/18 08:25 10:00 11:23 WBC 51.1 H RBC 3.80 L Hgb 11.1 L D Hct 36.1 MCV 95.0 MCH 29.2 MCHC 30.8 L RDW 16.2 Plt Count 321 D MPV 8.6 Prelim Diff (Auto) Neut % (Auto) Lymph % (Auto) Gillespie % (Auto) Eos % (Auto) Baso % (Auto) Neut # (Auto) Lymph # (Auto) Gillespie # (Auto) Eos # (Auto) Baso # (Auto) WBC Differential Seg Neuts % (Manual) Band Neuts % (Manual) Lymphocytes % (Manual) Monocytes % (Manual) Abs Neuts (Manual) Differential Comment Smudge Cells Platelet Estimate Platelet Morphology RBC Morphology Ovalocytes Raz Cells Puncture Site Right radial Patient Temperature 98.6 O2 Saturation 80 L* ABG pH 7.27 L* ABG pCO2 48 H ABG pO2 54 L* ABG HCO3 21 L ABG O2 Content 11.3 L ABG Base Excess -4.5 L ABG Methemoglobin 0.9 [place] Test Present Hemoglobin 10.0 L Carboxyhemoglobin 1.6 O2 Delivery Device Nasal cannula Liter Flow Inspired O2 5 Critical Value Yes Sodium Potassium Chloride Carbon Dioxide Anion Gap BUN Creatinine Estimated GFR POC Glucose 127 H Random Glucose Calcium Total Bilirubin AST ALT Alkaline Phosphatase Ammonia Troponin I Total Protein Albumin Nasal Screen MRSA (PCR) 07/02/18 07/02/18 07/02/18 12:00 12:04 13:00 WBC RBC Hgb Hct MCV MCH MCHC RDW Plt Count MPV Prelim Diff (Auto) Neut % (Auto) Lymph % (Auto) Gillespie % (Auto) Eos % (Auto) Baso % (Auto) Neut # (Auto) Lymph # (Auto) [place]illespie # (Auto) Eos # (Auto) Baso # (Auto) WBC Differential Seg Neuts % (Manual) Band Neuts % (Manual) Lymphocytes % (Manual) Monocytes % (Manual) Abs Neuts (Manual) Differential Comment Smudge Cells Platelet Estimate Platelet Morphology RBC Morphology Ovalocytes [place] Cells Puncture Site Patient Temperature O2 Saturation ABG pH ABG pCO2 ABG pO2 ABG HCO3 ABG O2 Content ABG Base Excess ABG Methemoglobin [place] Test Hemoglobin Carboxyhemoglobin O2 Delivery Device Liter Flow Inspired O2 Critical Value Sodium Potassium Chloride Carbon Dioxide Anion Gap BUN Creatinine Estimated GFR POC Glucose 144 H Random Glucose Calcium Total Bilirubin AST ALT Alkaline Phosphatase Ammonia Troponin I 0.07 H Total Protein Albumin Nasal Screen MRSA (PCR) Not detected 07/02/18 07/02/18 07/02/18 13:49 16:21 22:37 WBC RBC Hgb Hct MCV MCH MCHC RDW Plt Count MPV Prelim Diff (Auto) Neut % (Auto) Lymph % (Auto) [place]illespie % (Auto) Eos % (Auto) Baso % (Auto) Neut # (Auto) Lymph # (Auto) [place]pie # (Auto) Eos # (Auto) Baso # (Auto) WBC Differential Seg Neuts % (Manual) Band Neuts % (Manual) Lymphocytes % (Manual) Monocytes % (Manual) Abs Neuts (Manual) Differential Comment Smudge Cells Platelet Estimate Platelet Morphology RBC Morphology Ovalocytes [place] Cells Puncture Site Right radial Patient Temperature 98.6 O2 Saturation 89 L* ABG pH 7.27 L* ABG pCO2 44 H ABG pO2 69 ABG HCO3 20 L ABG O2 Content 13.7 ABG Base Excess -5.9 L ABG Methemoglobin 1.4 [place] Test Present Hemoglobin 10.9 L Carboxyhemoglobin 1.3 O2 Delivery Device Non-rebreathing mask Liter Flow 15.00 Inspired O2 100 Critical Value Yes Sodium Potassium Chloride Carbon Dioxide Anion Gap BUN Creatinine Estimated GFR POC Glucose 171 H 183 H Random Glucose Calcium Total Bilirubin AST ALT Alkaline Phosphatase Ammonia Troponin I Total Protein Albumin Nasal Screen MRSA (PCR) 07/03/18 07/03/18 07/03/18 11:30 11:30 12:02 WBC 60.2 H RBC 3.39 L Hgb 10.2 L Hct 32.6 L MCV 96.2 MCH 30.0 MCHC 31.2 L RDW 17.1 Plt Count 279 MPV 8.6 Prelim Diff (Auto) Slide review pending Neut % (Auto) 33.3 Lymph % (Auto) 64.5 H Gillespie % (Auto) 2.0 Eos % (Auto) 0.0 Baso % (Auto) 0.2 Neut # (Auto) 20.0 H Lymph # (Auto) 38.8 H Gillespie # (Auto) 1.2 H Eos # (Auto) 0.0 Baso # (Auto) 0.1 WBC Differential Manual diff final Seg Neuts % (Manual) 34 Band Neuts % (Manual) 1 Lymphocytes % (Manual) 64 H Monocytes % (Manual) 1 Abs Neuts (Manual) 21.1 H Differential Comment . Smudge Cells Present H Platelet Estimate Normal Platelet Morphology Normal RBC Morphology Normal Ovalocytes [place] Cells Puncture Site Left radial Patient Temperature 98.6 O2 Saturation 86 L* ABG pH 7.31 L ABG pCO2 36 L ABG pO2 53 L* ABG HCO3 17 L ABG O2 Content 12.0 ABG Base Excess -7.7 L ABG Methemoglobin 1.3 [place] Test Present Hemoglobin 9.9 L Carboxyhemoglobin 1.3 O2 Delivery Device Nasal cannula Liter Flow 6.00 Inspired O2 Critical Value Yes Sodium 138 Potassium 5.6 H Chloride 106 Carbon Dioxide 21.5 Anion Gap 11 BUN 70 H Creatinine 4.31 H Estimated GFR 10 L POC Glucose Random Glucose 195 H Calcium 8.8 D Total Bilirubin AST ALT Alkaline Phosphatase Ammonia Troponin I Total Protein Albumin Nasal Screen MRSA (PCR) 07/03/18 07/03/18 07/03/18 12:04 16:39 19:46 WBC RBC Hgb Hct MCV MCH MCHC RDW Plt Count MPV Prelim Diff (Auto) Neut % (Auto) Lymph % (Auto) [place]pie % (Auto) Eos % (Auto) Baso % (Auto) Neut # (Auto) Lymph # (Auto) [place] # (Auto) Eos # (Auto) Baso # (Auto) WBC Differential Seg Neuts % (Manual) Band Neuts % (Manual) Lymphocytes % (Manual) Monocytes % (Manual) Abs Neuts (Manual) Differential Comment Smudge Cells Platelet Estimate Platelet Morphology RBC Morphology Ovalocytes [place] Cells Puncture Site Patient Temperature O2 Saturation ABG pH ABG pCO2 ABG pO2 ABG HCO3 ABG O2 Content ABG Base Excess ABG Methemoglobin [place] Test Hemoglobin Carboxyhemoglobin O2 Delivery Device Liter Flow Inspired O2 Critical Value Sodium Potassium Chloride Carbon Dioxide Anion Gap BUN Creatinine Estimated GFR POC Glucose 249 H 209 H 162 H Random Glucose Calcium Total Bilirubin AST ALT Alkaline Phosphatase Ammonia Troponin I Total Protein Albumin Nasal Screen MRSA (PCR) 07/04/18 07/04/18 07/04/18 04:12 04:12 05:37 WBC 45.9 H RBC 3.07 L Hgb 9.2 L Hct 28.8 L MCV 94.0 MCH 30.1 MCHC 32.0 RDW 16.4 Plt Count 195 D MPV 8.6 Prelim Diff (Auto) Slide review pending Neut % (Auto) 32.7 Lymph % (Auto) 64.4 H Gillespie % (Auto) 2.7 Eos % (Auto) 0.1 Baso % (Auto) 0.1 Neut # (Auto) 15.0 H Lymph # (Auto) 29.5 H Gillespie # (Auto) 1.3 H Eos # (Auto) 0.0 Baso # (Auto) 0.1 WBC Differential Manual diff final Seg Neuts % (Manual) 25 Band Neuts % (Manual) 1 Lymphocytes % (Manual) 74 H Monocytes % (Manual) Abs Neuts (Manual) 11.9 H Differential Comment . Smudge Cells Present H Platelet Estimate Normal Platelet Morphology Normal RBC Morphology Ovalocytes 1+ H Raz Cells 1+ H Puncture Site Right radial Patient Temperature 98.6 O2 Saturation 90 ABG pH 7.35 L ABG pCO2 33 L ABG pO2 69 ABG HCO3 18 L ABG O2 Content 11.4 L ABG Base Excess -6.5 L ABG Methemoglobin 1.5 [place] Test Present Hemoglobin 8.9 L Carboxyhemoglobin 1.1 O2 Delivery Device Bipap 12/ 5/55% Liter Flow Inspired O2 55 Critical Value No Sodium 140 Potassium 5.2 H Chloride 108 H Carbon Dioxide 20.5 L Anion Gap 12 BUN 77 H Creatinine 4.59 H Estimated GFR 9 L POC Glucose Random Glucose 105 Calcium 8.8 Total Bilirubin AST ALT Alkaline Phosphatase Ammonia Troponin I Total Protein Albumin Nasal Screen MRSA (PCR) 07/04/18 07/04/18 09:02 12:01 WBC RBC Hgb Hct MCV MCH MCHC RDW Plt Count MPV Prelim Diff (Auto) Neut % (Auto) Lymph % (Auto) [place]pie % (Auto) Eos % (Auto) Baso % (Auto) Neut # (Auto) Lymph # (Auto) [place] # (Auto) Eos # (Auto) Baso # (Auto) WBC Differential Seg Neuts % (Manual) Band Neuts % (Manual) Lymphocytes % (Manual) Monocytes % (Manual) Abs Neuts (Manual) Differential Comment Smudge Cells Platelet Estimate Platelet Morphology RBC Morphology Ovalocytes [place] Cells Puncture Site Patient Temperature O2 Saturation ABG pH ABG pCO2 ABG pO2 ABG HCO3 ABG O2 Content ABG Base Excess ABG Methemoglobin [place] Test Hemoglobin Carboxyhemoglobin O2 Delivery Device Liter Flow Inspired O2 Critical Value Sodium Potassium Chloride Carbon Dioxide Anion Gap BUN Creatinine Estimated GFR POC Glucose 133 H 179 H Random Glucose Calcium Total Bilirubin AST ALT Alkaline Phosphatase Ammonia Troponin I Total Protein Albumin Nasal Screen MRSA (PCR) Result Diagrams: 07/04/18 04:12 07/04/18 04:12 Microbiology: Microbiology 06/25/18 19:15 Fungal Smear - Final Fluid - Pleural fluid No fungal elements seen Fungal Culture - Preliminary No growth in 1 week 06/25/18 17:15 Acid Fast Bacilli Smear - Final Abscess - Chest No acid fast bacilli seen Mycobacterial Culture - Preliminary No growth in 1 week 06/25/18 17:45 Fungal Smear - Final Fluid - Peritoneal fluid No fungal elements seen Fungal Culture - Preliminary No growth in 1 week 06/25/18 17:45 Acid Fast Bacilli Smear - Final Fluid - Peritoneal fluid No acid fast bacilli seen Mycobacterial Culture - Preliminary No growth in 1 week Imaging: Abdomen Ultrasound 06/25/18 00:00 CONCLUSION: 1. Moderate ascites 2. Hepatic cirrhosis Abdomen/Pelvis CT 06/25/18 00:00 CONCLUSION: 1. Suspected cirrhotic liver. 2. Mild to moderate amount of ascites. 3. Bilateral pleural effusions being mild on the right and minimal on the left. 4. Increased density at the inferior right middle lobe and right lower lobe likely related to consolidation or atelectasis. 5. Anasarca 6. Tiny nonobstructing left renal stone. Chest Ultrasound 06/25/18 00:00 CONCLUSION: 1. Large right pleural effusion without appreciable loculation. Thoracentesis Ultrasound 06/25/18 00:00 CONCLUSION: 1. Uncomplicated right thoracentesis. Head CT 06/25/18 06:47 CONCLUSION: 1. Stable evaluation of the head. 2. No evidence of acute infarct, hemorrhage, mass or edema. . Paracentesis Ultrasound 06/29/18 00:00 CONCLUSION: 1. Uncomplicated paracentesis. TIPS 07/01/18 00:00 CONCLUSION: 1. Uncomplicated fluoroscopic guided placement of TIPS shunts from the right hepatic vein to the right portal vein, as above. PLAN: Baseline ultrasound examination in 2 weeks with surveillance ultrasound at 3 months, 6 months and one year. Chest X-Ray 07/02/18 00:00 CONCLUSION: Radiographic findings concerning for possible congestive heart failure with severe pulmonary edema versus ARDS. Procedures: 06/25/18-Ultrasound guided paracentesis by interventional radiology with removal of 5700 mL's of clear, yellow fluid. 06/25/18 -Ultrasound-guided thoracentesis by interventional radiology with removal of 1200 mL's of clear, yellow fluid. 06/29/1881-[id number] paracentesis by interventional radiology with removal of 5900 mL's of clear, red fluid. 07/01/18-transjugular intrahepatic portosystemic shunt placement by interventional radiology . Assessment and Plan - Disease Oriented Problem List (1) Sepsis (2) Diabetes (3) Pneumonia (4) Acute on chronic kidney failure (5) Abdominal distension - Symptom Scale (1) Shortness of breath Comment: This is most likely from ascites and pleural effusion. Patient has had ultrasound guided thoracentesis on 03/05 with removal of 1200 mL's of clear, yellow fluid and ultrasound guided paracentesis on 06/25/18 with removal of 5700 mL's of clear fluid. (2) Debility Comment: Progressive. Patient has multiple ongoing comorbidities. Pertinent Non-Medical Issues: Psychosocial: Patient is originally from [facility]. She moved to [place] in 1983. She has been to her current for 29 years. 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 Patient has never had children. Spiritual: Patient is Pentecostalism-open to industrial service technician visit. Legal: Patient has completed designation of healthcare surrogate form today 07/05. Ethical issues impacting care: None identified at this time Important Contacts: Spouse-Higinio Lima [phone] . Prognosis: Mrs. Phoenix is a 72-year-old female with a past medical history of chronic lymphoid leukemia, asthma, diabetes mellitus, fatty liver, gout, arthritis, kidney disease, and thyroid disease. Patient presented to the emergency room on 06/25/18 for evaluation of generalized weakness, abdominal distention, shortness of breath and a painful bump on her head which she sustained from a fall from her water bed a week prior to presenting to the emergency room. Diagnostic EGD has showed that patient has liver cirrhosis. Clinical course complicated by shortness of breath, worsening renal function, and recurrent ascites. Given multiple ongoing comorbidities, patient remains at high risk for further complications, deterioration and decline. . Code Status: Full Code Plan: PLAN: Legal decision maker: Patient is alert and oriented to self, place and situation. Patient has insight regarding her medical condition and is able to weigh burdens and benefits of treatments offered to her. Patient is capable of making her own medical decisions. In the event that patient is incapacitated, she has designated her spouse Higinio Lima as her healthcare surrogate and her neighbor Sudheer Nicholson is her alternate healthcare surrogate. Goals: Patient is goals of treatment remain aggressive, though she intends to leave the hospital AGAINST MEDICAL ADVICE today. Her spouse is in support of pursuing aggressive treatment but does not agree with patient leaving AMA. Hospice introduced. Both patient and spouse do not agree with transitioning to comfort care only through hospice services due to bad experience with hospice in the past. Patient understands that if she goes home, she will most likely get worse. She does understand that her condition may worsen and she stated that she would call 911 and be brought back to the hospital if her condition worsens. CODE STATUS: Full code SYMPTOMS: * Shortness of breath:This is most likely from ascites and pleural effusion. Patient has had ultrasound guided thoracentesis on 06/25/18 with removal of 1200 mL's of clear, yellow fluid and ultrasound guided paracentesis on 06/25/18 with removal of 5700 mL's of clear fluid. Patient had another therapeutic paracentesis with removal of 5900 mL's of clear red fluid. Patient is currently on O2 2 L nasal cannula with O2 saturation in the mid to high 90s. Patient states that she is breathing much better after paracentesis. * Debility: Progressive. Patient has ongoing multiple comorbidities and has had multiple falls at home. Patient uses a wheeled walker at room. Physical therapy consulted, recommended PT at rehab. Palliative care will continue to follow the patient during hospital course as condition evolves, to assist patient/decision-maker with understanding of their medical conditions, weighing benefits/burdens of treatment options, for clarification of goals of treatment. Additionally will assist with any symptoms of palliative concern Attestation Attestation: To help prompt me to consider important information that might be impacting today's encounter and assessment, information from prior notes written by myself or my colleagues may have been "brought forward" into today's note. My signature on this note, however, is an attestation that I personally performed the exam, history, and/or decision-making noted today, and, unless otherwise indicated, the interactions with patient, family, and staff as well as the review of records all occurred today. I also attest that the listed assessment and stated plan reflect my best clinical judgment today based on the combination of historical information, prior notes, and today's exam/ interactions. When time spent is documented, it refers only to time spent today by the signer, or if indicated, combined time spent today by collaborating physician/nurse practitioner.
--- NOTE | 2018-07-04 14:22 | P.PNONC ---
Subjective Interval history: Patient lying in bed, family is at the bedside. She states that she wants to go home. She just had a meeting with palliative care. During my evaluation, the attending physician came in. She explains the patient that she was not stable to go home, as she is requiring 6-15 L of O2. Objective Vital Signs/Intake & Output: Vital Signs 07/03/18 14:06 07/03/18 14:31 07/03/18 14:54 Temperature Pulse Rate 67 62 59 L Respiratory Rate 21 24 20 Blood Pressure 118/58 L 122/54 L Pulse Oximetry 89 L 90 L 07/03/18 15:00 07/03/18 15:01 07/03/18 15:30 Temperature Pulse Rate 58 L 58 L 59 L Respiratory Rate 13 17 19 Blood Pressure 122/56 L 113/54 L Pulse Oximetry 100 100 95 07/03/18 16:00 07/03/18 16:01 07/03/18 16:30 Temperature 97.5 F L Pulse Rate 59 L 59 L 60 Respiratory Rate 27 H 29 H 28 H Blood Pressure 108/57 L 108/57 L 119/59 L Pulse Oximetry 99 98 95 07/03/18 17:00 07/03/18 17:30 07/03/18 18:00 Temperature Pulse Rate 56 L 56 L 59 L Respiratory Rate 18 15 23 Blood Pressure 108/55 L 112/55 L 112/56 L Pulse Oximetry 96 98 99 07/03/18 18:30 07/03/18 19:00 07/03/18 19:01 Temperature Pulse Rate 54 L 53 L 52 L Respiratory Rate 13 16 14 Blood Pressure 112/58 L 106/55 L Pulse Oximetry 99 96 96 07/03/18 19:30 07/03/18 20:00 07/03/18 20:08 Temperature 97.9 F Pulse Rate 54 L 50 L 58 L Respiratory Rate 13 18 16 Blood Pressure 111/56 L 103/52 L Pulse Oximetry 93 L 95 07/03/18 20:09 07/03/18 20:12 07/03/18 20:30 Temperature Pulse Rate 50 L Respiratory Rate 15 Blood Pressure 115/57 L Pulse Oximetry 97 99 99 07/03/18 21:00 07/03/18 21:30 07/03/18 22:00 Temperature Pulse Rate 52 L 47 L 49 L Respiratory Rate 13 13 13 Blood Pressure 106/55 L 104/57 L 102/55 L Pulse Oximetry 100 96 97 07/03/18 22:30 07/03/18 23:00 07/03/18 23:30 Temperature Pulse Rate 50 L 50 L 49 L Respiratory Rate 13 10 L 14 Blood Pressure 100/56 L 105/55 L 93/50 L Pulse Oximetry 97 95 90 L 07/03/18 23:47 07/03/18 23:49 07/04/18 00:00 Temperature 97.4 F L Pulse Rate 49 L Respiratory Rate 15 Blood Pressure 85/50 L Pulse Oximetry 97 97 95 07/04/18 00:30 07/04/18 01:00 07/04/18 01:30 Temperature Pulse Rate 50 L 52 L 51 L Respiratory Rate 14 20 14 Blood Pressure 97/55 L 99/50 L 94/51 L Pulse Oximetry 97 97 98 07/04/18 02:00 07/04/18 02:30 07/04/18 03:00 Temperature Pulse Rate 46 L 50 L 49 L Respiratory Rate 13 13 14 Blood Pressure 94/50 L 93/55 L 100/50 L Pulse Oximetry 99 96 97 07/04/18 03:30 07/04/18 04:00 07/04/18 04:24 Temperature 98 F Pulse Rate 51 L 48 L Respiratory Rate 13 12 Blood Pressure 97/54 L 90/54 L Pulse Oximetry 100 98 97 07/04/18 04:33 07/04/18 06:34 07/04/18 08:06 Temperature Pulse Rate 49 L Respiratory Rate 13 Blood Pressure 109/54 L Pulse Oximetry 96 95 95 07/04/18 08:07 07/04/18 11:52 Temperature Pulse Rate 56 L Respiratory Rate 18 Blood Pressure Pulse Oximetry 95 Intake & Output 07/03/18 07/04/18 07/04/18 18:59 06:59 18:59 Intake Total 590 / 590 640 / 640 50 / 50 Output Total 100 / 100 Balance 490 / 490 640 / 640 50 / 50 Weight 82 kg Intake: IV 350 / 350 400 / 400 50 / 50 Flexbumin 25% Inj 100 ML @ 60 200 / 200 200 / 200 mls/hr IV.SIG Q8H [facility] Rx#: [id number] Levaquin 250 mg Premix Inj 250 50 / 50 50 / 50 mg In 50 ml @ 50 mls/hr IV.SIG Q24H [facility] Rx#:[id number] Flagyl 500 MG Inj 100 ML @ 100 100 / 100 200 / 200 mls/hr IV.SIG Q8H [facility] Rx#: [id number] Oral 240 / 240 240 / 240 Output: Urine 100 / 100 Other: # Incontinent Voids 2 Date of Last Bowel Movement 07/03/18 07/04/18 07/04/18 # Bowel Movements 1 # Incontinent Bowel Movements 2 Result Diagrams: 07/04/18 04:12 07/04/18 04:12 Laboratory Results: Laboratory Results - last 24 hr 07/03/18 07/03/18 07/04/18 16:39 19:46 04:12 WBC 45.9 H RBC 3.07 L Hgb 9.2 L Hct 28.8 L MCV 94.0 MCH 30.1 MCHC 32.0 RDW 16.4 Plt Count 195 D MPV 8.6 Prelim Diff (Auto) Slide review pending Neut % (Auto) 32.7 Lymph % (Auto) 64.4 H [place] % (Auto) 2.7 Eos % (Auto) 0.1 Baso % (Auto) 0.1 Neut # (Auto) 15.0 H Lymph # (Auto) 29.5 H [place] # (Auto) 1.3 H Eos # (Auto) 0.0 Baso # (Auto) 0.1 WBC Differential Manual diff final Seg Neuts % (Manual) 25 Band Neuts % (Manual) 1 Lymphocytes % (Manual) 74 H Abs Neuts (Manual) 11.9 H Differential Comment . Smudge Cells Present H Platelet Estimate Normal Platelet Morphology Normal Ovalocytes 1+ H [place] Cells 1+ H Puncture Site Patient Temperature O2 Saturation ABG pH ABG pCO2 ABG pO2 ABG HCO3 ABG O2 Content ABG Base Excess ABG Methemoglobin [place] Test Hemoglobin Carboxyhemoglobin O2 Delivery Device Inspired O2 Critical Value Sodium Potassium Chloride Carbon Dioxide Anion Gap BUN Creatinine Estimated GFR POC Glucose 209 H 162 H Random Glucose Calcium 07/04/18 07/04/18 07/04/18 04:12 05:37 09:02 WBC RBC Hgb Hct MCV MCH MCHC RDW Plt Count MPV Prelim Diff (Auto) Neut % (Auto) Lymph % (Auto) [place] % (Auto) Eos % (Auto) Baso % (Auto) Neut # (Auto) Lymph # (Auto) [place] # (Auto) Eos # (Auto) Baso # (Auto) WBC Differential Seg Neuts % (Manual) Band Neuts % (Manual) Lymphocytes % (Manual) Abs Neuts (Manual) Differential Comment Smudge Cells Platelet Estimate Platelet Morphology Ovalocytes Raz Cells Puncture Site Right radial Patient Temperature 98.6 O2 Saturation 90 ABG pH 7.35 L ABG pCO2 33 L ABG pO2 69 ABG HCO3 18 L ABG O2 Content 11.4 L ABG Base Excess -6.5 L ABG Methemoglobin 1.5 [place] Test Present Hemoglobin 8.9 L Carboxyhemoglobin 1.1 O2 Delivery Device Bipap 12/ 5/55% Inspired O2 55 Critical Value No Sodium 140 Potassium 5.2 H Chloride 108 H Carbon Dioxide 20.5 L Anion Gap 12 BUN 77 H Creatinine 4.59 H Estimated GFR 9 L POC Glucose 133 H Random Glucose 105 Calcium 8.8 07/04/18 12:01 WBC RBC Hgb Hct MCV MCH MCHC RDW Plt Count MPV Prelim Diff (Auto) Neut % (Auto) Lymph % (Auto) [place] % (Auto) Eos % (Auto) Baso % (Auto) Neut # (Auto) Lymph # (Auto) [place] # (Auto) Eos # (Auto) Baso # (Auto) WBC Differential Seg Neuts % (Manual) Band Neuts % (Manual) Lymphocytes % (Manual) Abs Neuts (Manual) Differential Comment Smudge Cells Platelet Estimate Platelet Morphology Ovalocytes Raz Cells Puncture Site Patient Temperature O2 Saturation ABG pH ABG pCO2 ABG pO2 ABG HCO3 ABG O2 Content ABG Base Excess ABG Methemoglobin [place] Test Hemoglobin Carboxyhemoglobin O2 Delivery Device Inspired O2 Critical Value Sodium Potassium Chloride Carbon Dioxide Anion Gap BUN Creatinine Estimated GFR POC Glucose 179 H Random Glucose Calcium Culture Results: Microbiology 06/25/18 19:15 Fungal Smear - Final Fluid - Pleural fluid No fungal elements seen Fungal Culture - Preliminary No growth in 1 week 06/25/18 17:15 Acid Fast Bacilli Smear - Final Abscess - Chest No acid fast bacilli seen Mycobacterial Culture - Preliminary No growth in 1 week 06/25/18 17:45 Fungal Smear - Final Fluid - Peritoneal fluid No fungal elements seen Fungal Culture - Preliminary No growth in 1 week 06/25/18 17:45 Acid Fast Bacilli Smear - Final Fluid - Peritoneal fluid No acid fast bacilli seen Mycobacterial Culture - Preliminary No growth in 1 week Medications: Active Medications Generic Name Dose Route Start Last Admin Trade Name Freq PRN Reason Stop Dose Admin Albuterol 1 ampul 07/02/18 20:00 07/04/18 08:04 Duoneb Neb ([facility]) NEB 1 ampul Q6HR WHILE AWAKE NEB [facility] Administration Furosemide 20 mg 07/02/18 18:00 07/04/18 09:13 Lasix Inj IV.PUSH 20 mg BID@0900,1800 [facility] Administration Sodium Chloride 500 mls @ 30 mls/hr 06/28/18 10:00 06/28/18 17:12 Ns Inj IV.SIG Not Given .Q10H [facility] Albumin Human 100 mls @ 60 mls/hr 06/30/18 11:00 07/04/18 13:09 Flexbumin 25% Inj IV.SIG 60 mls/hr Q8H [facility] Administration Levofloxacin/Dextrose 250 mg in 50 mls @ 50 mls/hr 07/03/18 10:00 07/04/18 10 :13 Levaquin 250 Mg Premix Inj IV.SIG Infused Q24H [facility] Infusion Metronidazole/Sodium Chloride 100 mls @ 100 mls/hr 07/03/18 12:00 07/04/18 13 :09 Flagyl 500 Mg Inj IV.SIG 100 mls/hr Q8H [facility] Administration Insulin Aspart 0 unit 06/25/18 12:00 07/04/18 13:09 Novolog Insulin Correctional Sugar Inj SQ Not Given ACHS [facility] Protocol Lactulose 30 ml 07/02/18 09:00 07/04/18 09:13 Lactulose Liq PO 30 ml DAILY [facility] Administration Melatonin 5 mg 07/02/18 20:06 07/02/18 22:46 Melatonin PO 5 mg HS PRN Administration INSOMNIA Midodrine 10 mg 06/30/18 12:00 07/04/18 13:09 Proamatine PO 10 mg TID@0700,1200,1700 [facility] Administration Nadolol 20 mg 06/26/18 09:00 07/04/18 09:12 Corgard PO 20 mg DAILY [facility] Administration Octreotide Acetate 50 mcg 06/30/18 14:00 07/04/18 13:08 Sandostatin Inj IV.PUSH 50 mcg Q8HR [facility] Administration Ondansetron HCl 4 mg 07/01/18 18:41 07/03/18 13:03 Zofran Inj IV.PUSH 4 mg Q6H PRN Administration nausea/vomiting Pantoprazole Sodium 40 mg 06/26/18 09:00 07/04/18 09:13 Protonix PO 40 mg DAILY [facility] Administration Sodium Chloride 2 ml 06/28/18 21:00 07/04/18 09:13 Ns Flush IV.FLUSH 2 ml BID [facility] Administration Objective Remarks: GENERAL: Elderly female patient, in no acute distress. SKIN: Pale, warm and dry. HEAD: Normocephalic. EYES: No scleral icterus. No injection or drainage. NECK: Supple, trachea midline. CARDIOVASCULAR: Regular rate and rhythm without murmurs. RESPIRATORY: Breath sounds equal bilaterally. No accessory muscle use. GASTROINTESTINAL: Abdomen protuberant, non-tender. EXTREMITIES: No cyanosis, or edema. MUSCULOSKELETAL: Adequate muscle tone. NEUROLOGICAL: No obvious focal deficit. Awake, alert, and oriented x3. PSYCHIATRIC: Appropriate mood and affect; insight and judgment normal. Assessment/Plan - Plan Mrs. Lima is a 72-year-old female patient with a history of CLL, patient has had this diagnosis for many years and has been treated with observation. Plan: 1. CLL, no treatment is warranted at this time. Continue to follow counts. 2. Liver cirrhosis, management per GI team. 3. Acute on chronic kidney failure, management per nephrology. - Attending Statement The exam, history, and the medical decision-making described in the above note were completed with the assistance of the mid-level provider. I reviewed and agree with the findings presented. I attest that I had a [id number] encounter with the patient on the same day, and personally performed and documented my assessment and findings in the medical record. 72 yoF with CLL admitted with ascites s/p TIPS with increased oxygen requirment. No need for acute treatment of CLL at this time. Continue to monitor clinically.
--- NOTE | 2018-07-04 16:56 | P.PNPL ---
Subjective Interval history: 72 YOWF with br asthma, DM, Rt lung infilt and Pl eff Breathing better no Abd pain no fever. had TIPS procedure On NC 6lit, does't want CPAP Anxious to go home Physical Exam Vital signs: Vital Signs 07/03/18 17:00 07/03/18 17:30 07/03/18 18:00 Temperature Pulse Rate 56 L 56 L 59 L Respiratory Rate 18 15 23 Blood Pressure 108/55 L 112/55 L 112/56 L Pulse Oximetry 96 98 99 07/03/18 18:30 07/03/18 19:00 07/03/18 19:01 Temperature Pulse Rate 54 L 53 L 52 L Respiratory Rate 13 16 14 Blood Pressure 112/58 L 106/55 L Pulse Oximetry 99 96 96 07/03/18 19:30 07/03/18 20:00 07/03/18 20:08 Temperature 97.9 F Pulse Rate 54 L 50 L 58 L Respiratory Rate 13 18 16 Blood Pressure 111/56 L 103/52 L Pulse Oximetry 93 L 95 07/03/18 20:09 07/03/18 20:12 07/03/18 20:30 Temperature Pulse Rate 50 L Respiratory Rate 15 Blood Pressure 115/57 L Pulse Oximetry 97 99 99 07/03/18 21:00 07/03/18 21:30 07/03/18 22:00 Temperature Pulse Rate 52 L 47 L 49 L Respiratory Rate 13 13 13 Blood Pressure 106/55 L 104/57 L 102/55 L Pulse Oximetry 100 96 97 07/03/18 22:30 07/03/18 23:00 07/03/18 23:30 Temperature Pulse Rate 50 L 50 L 49 L Respiratory Rate 13 10 L 14 Blood Pressure 100/56 L 105/55 L 93/50 L Pulse Oximetry 97 95 90 L 07/03/18 23:47 07/03/18 23:49 07/04/18 00:00 Temperature 97.4 F L Pulse Rate 49 L Respiratory Rate 15 Blood Pressure 85/50 L Pulse Oximetry 97 97 95 07/04/18 00:30 07/04/18 01:00 07/04/18 01:30 Temperature Pulse Rate 50 L 52 L 51 L Respiratory Rate 14 20 14 Blood Pressure 97/55 L 99/50 L 94/51 L Pulse Oximetry 97 97 98 07/04/18 02:00 07/04/18 02:30 12/17/18 03:00 Temperature Pulse Rate 46 L 50 L 49 L Respiratory Rate 13 13 14 Blood Pressure 94/50 L 93/55 L 100/50 L Pulse Oximetry 99 96 97 07/04/18 03:30 07/04/18 04:00 07/04/18 04:24 Temperature 98 F Pulse Rate 51 L 48 L Respiratory Rate 13 12 Blood Pressure 97/54 L 90/54 L Pulse Oximetry 100 98 97 07/04/18 04:33 07/04/18 06:34 07/04/18 08:00 Temperature 98.0 F Pulse Rate 49 L 55 L Respiratory Rate 13 14 Blood Pressure 109/54 L 115/59 L Pulse Oximetry 96 95 95 07/04/18 08:06 07/04/18 08:07 07/04/18 11:52 Temperature Pulse Rate 56 L Respiratory Rate 18 Blood Pressure Pulse Oximetry 95 95 07/04/18 12:00 07/04/18 15:00 Temperature 97.8 F Pulse Rate 58 L 61 Respiratory Rate 24 18 Blood Pressure 106/68 Pulse Oximetry 93 L Intake & Output 07/03/18 07/04/18 07/04/18 18:59 06:59 18:59 Intake Total 590 / 590 640 / 640 250 / 250 Output Total 100 / 100 Balance 490 / 490 640 / 640 250 / 250 Weight 82 kg Intake: IV 350 / 350 400 / 400 250 / 250 Flexbumin 25% Inj 100 ML @ 60 200 / 200 200 / 200 100 / 100 mls/hr IV.SIG Q8H [facility] Rx#: [id number] Levaquin 250 mg Premix Inj 250 50 / 50 50 / 50 mg In 50 ml @ 50 mls/hr IV.SIG Q24H [facility] Rx#:[id number] Flagyl 500 MG Inj 100 ML @ 100 100 / 100 200 / 200 100 / 100 mls/hr IV.SIG Q8H [facility] Rx#: [id number] Oral 240 / 240 240 / 240 Output: Urine 100 / 100 Other: # Incontinent Voids 2 Date of Last Bowel Movement 07/03/18 07/04/18 07/04/18 # Bowel Movements 1 # Incontinent Bowel Movements 2 GENERAL: Elderly WF,NAD SKIN: Warm and dry. HEAD: Normocephalic. EYES: No scleral icterus. No injection or drainage. NECK: Supple, trachea midline. No JVD or lymphadenopathy. CARDIOVASCULAR: Regular rate and rhythm without murmurs, gallops, or rubs. RESPIRATORY: Breath sounds equal bilaterally. No accessory muscle use. GASTROINTESTINAL: Abdomen soft, non-tender, nondistended. MUSCULOSKELETAL: No cyanosis, or edema. BACK: Nontender without obvious deformity. No CVA tenderness. Assessment and Plan - Plan IMPRESSION: 1. Right lung infiltrate. 2. Right pleural effusion. 3. Dyspnea. 4. Diabetes mellitus. 5. Hypertension. 6. Renal insufficiency and chronic kidney disease. 7. CLL 8. S/P TIPS PLAN: Cont Abx per ID Aerosol nebs Heparin 5000 IU SQ q 12 hrs Supplement 02 to keep sat >90% Use high flow of needed
[2018-07-05] MEDS: Albumin Human 25% Inj 100 ML IV.SIG SCH ×3 (02:26→18:15)
[2018-07-05] MEDS: Octreotide Inj 50 MCG/ML Vial IV.PUSH SCH ×3 (05:34→21:05)
[2018-07-05] MEDS: Insulin NovoLOG Aspart Correctional Sugar Inj SQ SCH ×4 (08:02→21:05)
[2018-07-05] MEDS: Nadolol 20 MG Tablet PO SCH (08:02)
[2018-07-05] MEDS: Levofloxacin 250 mg Premix Inj 250 MG/50 ML PIGGYBACK IV.SIG SCH (09:23)
[2018-07-05 09:36] LABS: Baso # (Auto) 0.1 th/mm3 (0.0-0.2); Baso % (Auto) 0.2 % (0.0-2.0); Eos # (Auto) 0.7 th/mm3 (0.0-0.4); Eos % (Auto) 1.1 % (0.0-4.0); Hematocrit 31.3 % (35.0-46.0); Hemoglobin 9.9 gm/dL (11.6-15.3); Lymph # (Auto) 44.8 th/mm3 (1.0-4.8); Lymph % (Auto) 70.3 % (9.0-44.0); Mean Corpuscular HGB Conc 31.8 % (32.0-36.0); Mean Corpuscular Volume 94.4 fL (80.0-100.0); Mean Platelet Volume 8.5 fL (7.0-11.0); Mono # (Auto) 1.9 th/mm3 (0.0-0.9); Neut # (Auto) 16.2 th/mm3 (1.8-7.7); Neut % (Auto) 25.4 % (16.0-70.0); Platelet Count 237 th/mm3 (150-450); Red Blood Count 3.32 mil/mm3 (4.00-5.30); Red Cell Distribution Width 17.3 % (11.6-17.2); White Blood Count 63.7 th/mm3 (4.0-11.0)
--- NOTE | 2018-07-05 09:54 | P.PNNP ---
Subjective Interval history: Patient was seen, no distress. Labs for today are pending. Strongly suggested Hospice to patient. Patient may have hepatorenal syndrome. Discussed this with the patient and that this is a terminal condition. Patient stated she wasn't a candidate for a liver transplant. Patient stated she understood the situation and she would like to go home. <Des Arora - Last Filed: 07/05/18 09:55> Physical Exam Vital signs: Vital Signs 07/04/18 10:00 07/04/18 10:01 07/04/18 10:30 Temperature Pulse Rate 60 60 60 Respiratory Rate 23 27 H 21 Blood Pressure 119/56 L 131/60 Pulse Oximetry 92 L 92 L 92 L 07/04/18 11:00 07/04/18 11:01 07/04/18 11:30 Temperature Pulse Rate 59 L 55 L 58 L Respiratory Rate 21 16 18 Blood Pressure 132/62 119/64 Pulse Oximetry 95 95 94 L 07/04/18 11:52 07/04/18 12:00 07/04/18 12:01 Temperature 97.8 F Pulse Rate 58 L 57 L Respiratory Rate 23 21 Blood Pressure 106/68 106/68 Pulse Oximetry 95 93 L 92 L 07/04/18 13:00 07/04/18 14:00 07/04/18 14:08 Temperature Pulse Rate 54 L 62 61 Respiratory Rate 22 24 18 Blood Pressure 149/70 H Pulse Oximetry 88 L 91 L 93 L 07/04/18 15:00 07/04/18 16:00 07/04/18 16:01 Temperature 98.0 F Pulse Rate 61 60 60 Respiratory Rate 22 20 18 Blood Pressure 117/55 L 117/55 L Pulse Oximetry 90 L 92 L 93 L 07/04/18 17:00 07/04/18 18:00 07/04/18 18:01 Temperature Pulse Rate 59 L 64 64 Respiratory Rate 16 31 H 34 H Blood Pressure 124/59 L 113/55 L Pulse Oximetry 90 L 83 L 83 L 07/04/18 19:00 07/04/18 19:01 07/04/18 19:36 Temperature Pulse Rate 63 63 62 Respiratory Rate 24 23 22 Blood Pressure 137/62 Pulse Oximetry 87 L 87 L 07/04/18 19:37 07/04/18 20:00 07/04/18 21:00 Temperature 97.8 F Pulse Rate 60 62 Respiratory Rate 27 H 21 Blood Pressure 117/59 L 117/58 L Pulse Oximetry 93 L 92 L 88 L 07/04/18 22:00 07/04/18 23:00 07/04/18 23:29 Temperature Pulse Rate 54 L 61 Respiratory Rate 14 17 Blood Pressure 105/55 L 109/52 L Pulse Oximetry 89 L 85 L 93 L 07/05/18 00:00 07/05/18 00:04 07/05/18 01:00 Temperature 97.8 F Pulse Rate 59 L 59 L 61 Respiratory Rate 22 26 H 23 Blood Pressure 109/56 L 108/52 L Pulse Oximetry 84 L 87 L 71 L 07/05/18 02:00 07/05/18 03:00 07/05/18 04:00 Temperature 98.2 F Pulse Rate 61 59 L 58 L Respiratory Rate 31 H 18 32 H Blood Pressure 112/60 137/68 128/62 Pulse Oximetry 87 L 93 L 88 L 07/05/18 07:36 07/05/18 08:00 07/05/18 09:09 Temperature 97.7 F Pulse Rate 61 60 Respiratory Rate 18 22 Blood Pressure 126/66 Pulse Oximetry 96 89 L 93 L Intake & Output 07/04/18 07/05/18 07/05/18 18:59 06:59 18:59 Intake Total 650 / 650 330 / 330 Output Total 150 / 150 Balance 500 / 500 330 / 330 Weight 82 kg Intake: IV 250 / 250 210 / 210 Flexbumin 25% Inj 100 ML @ 60 100 / 100 110 / 110 mls/hr IV.SIG Q8H [facility] Rx#: [id number] Levaquin 250 mg Premix Inj 250 50 / 50 mg In 50 ml @ 50 mls/hr IV.SIG Q24H [facility] Rx#:[id number] Flagyl 500 MG Inj 100 ML @ 100 100 / 100 100 / 100 mls/hr IV.SIG Q8H [facility] Rx#: [id number] Oral 400 / 400 120 / 120 Output: Urine 150 / 150 Other: # Voids 2 # Incontinent Voids 1 Date of Last Bowel Movement 07/04/18 07/04/18 07/04/18 # Incontinent Bowel Movements 0 Narrative: GENERAL: Chronically ill, appears sob. CARDIOVASCULAR: Regular rate and rhythm. No murmurs, rubs or gallops heard RESPIRATORY: Decreased breath sounds at bases. No use of accessory muscles. ABDOMEN: non-tender, mildly distended. Bowel sounds present and normoactive. EXTREMITIES: No clubbing, cyanosis. NEUROLOGICAL: Awake and alert. PSYCHIATRIC: Normal affect, calm and cooperative. <Des Arora - Last Filed: 07/05/18 09:55> Vital signs: Vital Signs 07/05/18 09:00 07/05/18 09:01 07/05/18 09:09 Temperature Pulse Rate 59 L 59 L Respiratory Rate 18 17 Blood Pressure 139/67 Pulse Oximetry 93 L 93 L 93 L 07/05/18 10:00 07/05/18 10:02 07/05/18 11:00 Temperature Pulse Rate 62 62 57 L Respiratory Rate 24 18 18 Blood Pressure 142/67 H Pulse Oximetry 86 L 87 L 94 L 07/05/18 11:01 07/05/18 12:00 07/05/18 13:00 Temperature 97.8 F Pulse Rate 56 L 61 61 Respiratory Rate 18 25 H 16 Blood Pressure 120/65 125/75 130/58 L Pulse Oximetry 93 L 92 L 91 L 07/05/18 13:18 07/05/18 14:00 07/05/18 14:01 Temperature Pulse Rate 61 63 64 Respiratory Rate 21 31 H 34 H Blood Pressure 117/60 Pulse Oximetry 79 L 80 L 07/05/18 15:00 07/05/18 16:00 07/05/18 17:00 Temperature 97.6 F Pulse Rate 62 58 L 61 Respiratory Rate 22 15 22 Blood Pressure 121/64 130/59 L 144/67 H Pulse Oximetry 91 L 94 L 96 07/05/18 18:00 07/05/18 19:00 07/05/18 19:56 Temperature Pulse Rate 61 63 65 Respiratory Rate 25 H 35 H 22 Blood Pressure 150/73 H 150/63 H Pulse Oximetry 94 L 92 L 07/05/18 19:59 07/05/18 20:00 07/05/18 21:00 Temperature 97.9 F Pulse Rate 65 63 Respiratory Rate 26 H 24 Blood Pressure 146/69 H 129/69 Pulse Oximetry 92 L 90 L 87 L 07/05/18 22:00 07/05/18 23:00 07/05/18 23:13 Temperature Pulse Rate 64 64 Respiratory Rate 27 H 24 Blood Pressure 128/60 139/76 Pulse Oximetry 72 L 100 96 07/06/18 00:00 07/06/18 00:17 07/06/18 02:02 Temperature 98.3 F Pulse Rate 64 71 Respiratory Rate 30 H 40 H Blood Pressure 149/63 H Pulse Oximetry 93 L 96 91 L 07/06/18 03:00 07/06/18 04:00 07/06/18 04:03 Temperature 97.6 F Pulse Rate 58 L 62 63 Respiratory Rate 13 25 H 15 Blood Pressure 103/55 L 146/76 H Pulse Oximetry 94 L 94 L 95 07/06/18 04:04 07/06/18 04:06 07/06/18 04:09 Temperature Pulse Rate 63 60 56 L Respiratory Rate 20 43 H 39 H Blood Pressure 126/65 139/64 107/53 L Pulse Oximetry 94 L 94 L 97 07/06/18 04:10 07/06/18 04:13 07/06/18 04:15 Temperature Pulse Rate 55 L 55 L 55 L Respiratory Rate 18 21 25 H Blood Pressure 75/36 L 58/38 L 80/44 L Pulse Oximetry 96 98 98 07/06/18 04:16 07/06/18 04:19 07/06/18 04:20 Temperature Pulse Rate 54 L 57 L 58 L Respiratory Rate 23 26 H 18 Blood Pressure 84/48 L 93/55 L 101/52 L Pulse Oximetry 98 100 99 07/06/18 04:23 07/06/18 04:24 07/06/18 04:31 Temperature Pulse Rate 59 L 59 L 60 Respiratory Rate 18 18 15 Blood Pressure 88/53 L 103/50 L 104/53 L Pulse Oximetry 100 100 99 07/06/18 04:40 07/06/18 04:50 07/06/18 04:56 Temperature Pulse Rate 59 L 61 60 Respiratory Rate 12 34 H 20 Blood Pressure 103/55 L 87/50 L 125/60 Pulse Oximetry 99 100 98 07/06/18 05:00 07/06/18 05:20 07/06/18 05:26 Temperature Pulse Rate 58 L 54 L 54 L Respiratory Rate 18 18 18 Blood Pressure 118/55 L 87/47 L 103/51 L Pulse Oximetry 100 80 L 100 07/06/18 05:30 07/06/18 05:41 07/06/18 05:50 Temperature Pulse Rate 53 L 53 L 53 L Respiratory Rate 18 11 L 15 Blood Pressure 104/55 L 106/55 L 96/50 L Pulse Oximetry 100 100 98 07/06/18 06:00 07/06/18 07:51 Temperature Pulse Rate 53 L 54 L Respiratory Rate 18 18 Blood Pressure 93/54 L Pulse Oximetry 100 100 Intake & Output 07/05/18 07/06/18 07/06/18 18:59 06:59 18:59 Intake Total 240 / 240 250 / 250 Output Total 200 / 200 Balance 40 / 40 250 / 250 Weight 88 kg Intake: IV 240 / 240 250 / 250 Sodium Bicarbonate 8.4% Inj 50 50 / 50 ML @ 0 mls/hr .ROUTE .[facility] Rx#:[id number] Flexbumin 25% Inj 100 ML @ 60 190 / 190 200 / 200 mls/hr IV.SIG Q8H [facility] Rx#: [id number] Levaquin 250 mg Premix Inj 250 50 / 50 mg In 50 ml @ 50 mls/hr IV.SIG Q24H [facility] Rx#:[id number] Oral 0 / 0 Output: Urine 200 / 200 Other: # Incontinent Voids 1 Date of Last Bowel Movement 07/05/18 07/05/18 # Bowel Movements 2 0 <Papi Busby - Last Filed: 07/06/18 08:45> Assessment and Plan - Assessment (1) Acute on chronic kidney failure Code(s): N17.9 - Acute kidney failure, unspecified; N18.9 - Chronic kidney disease, unspecified Status: Acute Plan: Patient has chronic kidney disease and possibly has ATN. Patient may have hepatorenal syndrome. Renal function has continued to decline, labs for today are pending. Patient's urine output has declined. Monitor urine output. Poor prognosis, suggest Hospice. (2) Diabetes Code(s): E11.9 - Type 2 diabetes mellitus without complications Status: Acute Plan: Insulin coverage to maintain glucose levels between 140 and 180. (3) Abdominal distension Code(s): R14.0 - Abdominal distension (gaseous) Status: Acute Plan: s/p paracentesis x2. - Plan S/P TIPS procedure 07/01/18 <Des Arora - Last Filed: 07/05/18 09:55> - Assessment (1) Acute on chronic kidney failure Code(s): N17.9 - Acute kidney failure, unspecified; N18.9 - Chronic kidney disease, unspecified Status: Acute (2) Diabetes Code(s): E11.9 - Type 2 diabetes mellitus without complications Status: Acute (3) Abdominal distension Code(s): R14.0 - Abdominal distension (gaseous) Status: Acute - Attending Attestation patient was seen and examined. Poor prognosis. May have hepatorenal syndrome. <Papi Busby - Last Filed: 07/06/18 08:45>
[2018-07-05 09:58] LABS: Potassium 5.1 meq/L (3.5-5.1)
[2018-07-05 09:59] LABS: Carbon Dioxide 20.9 meq/L (21.0-32.0)
--- NOTE | 2018-07-05 10:30 | P.PNID ---
Subjective Remarks: Patient is a 72-year-old female presented to the hospital complaining of shortness of breath. She has had problem with shortness of breath over the last several months, but it has progressively worsened that she has difficulty ambulating. She gets orthopnea. She occasionally has cough but no phlegm. Denies any chest pain. She admits to some intermittent low-grade fevers. It was also noted that her abdomen has been more distended. On evaluation she was found to have pleural effusions as well as ascites and liver cirrhosis on ultrasound. She also had a CT of the abdomen and pelvis which did not show any lymphadenopathy. She has not been febrile. She has had thoracentesis and they took out 1.2 L of fluid. Paracentesis and they took out 5.7 L of ascites. Since admission she has had leukocytosis of 20,000 and higher. 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 She has not required any treatment for her CLL. Patient currently she has had upper endoscopy. She has had some diarrhea. She is noted increased abdominal girth again. Patient also has had increasing creatinine, and her urine output has been decreasing. Stool for C. difficile is negative. I do not have a urinalysis. Her initial chest x-ray on admission showing a right base infiltrate and effusion. Her last chest x-ray after she has had thoracenteses showed hypoaeration, with no infiltrates seen. Patient has been on Rocephin since admission. Infectious disease consultation has been requested to assist with evaluation and treatment of leukocytosis. Notes reviewed D/W RN On 6L nasal O2 Sats running high 80s low 90s States breathing not bad No chest pain No abdominal pain WBC very high Creatinine rising UO documented is low Renal notes reviewed - recommending Hospice Palliative medicine notes reviewed Patient wants to go home CXR with bilateral infiltrates Had TIPS procedure 07/01 Antibiotics: Levaquin Flagyl Lines: PIV Past Medical History: Asthma Diabetes Gout Hypertension Leukemia H/O foot surgery H/O thyroidectomy Allergies/Adverse Reactions: Allergies No Known Allergies Allergy (Verified 06/25/18 05:25) Objective Vital Signs 07/04/18 10:30 07/04/18 11:00 07/04/18 11:01 Temperature Pulse Rate 60 59 L 55 L Respiratory Rate 21 21 16 Blood Pressure 131/60 132/62 Pulse Oximetry 92 L 95 95 07/04/18 11:30 07/04/18 11:52 07/04/18 12:00 Temperature 97.8 F Pulse Rate 58 L 58 L Respiratory Rate 18 23 Blood Pressure 119/64 106/68 Pulse Oximetry 94 L 95 93 L 07/04/18 12:01 07/04/18 13:00 07/04/18 14:00 Temperature Pulse Rate 57 L 54 L 62 Respiratory Rate 21 22 24 Blood Pressure 106/68 Pulse Oximetry 92 L 88 L 91 L 07/04/18 14:08 07/04/18 15:00 07/04/18 16:00 Temperature 98.0 F Pulse Rate 61 61 60 Respiratory Rate 18 22 20 Blood Pressure 149/70 H 117/55 L Pulse Oximetry 93 L 90 L 92 L 07/04/18 16:01 07/04/18 17:00 07/04/18 18:00 Temperature Pulse Rate 60 59 L 64 Respiratory Rate 18 16 31 H Blood Pressure 117/55 L 124/59 L Pulse Oximetry 93 L 90 L 83 L 07/04/18 18:01 07/04/18 19:00 07/04/18 19:01 Temperature Pulse Rate 64 63 63 Respiratory Rate 34 H 24 23 Blood Pressure 113/55 L 137/62 Pulse Oximetry 83 L 87 L 87 L 07/04/18 19:36 07/04/18 19:37 07/04/18 20:00 Temperature 97.8 F Pulse Rate 62 60 Respiratory Rate 22 27 H Blood Pressure 117/59 L Pulse Oximetry 93 L 92 L 07/04/18 21:00 07/04/18 22:00 07/04/18 23:00 Temperature Pulse Rate 62 54 L 61 Respiratory Rate 21 14 17 Blood Pressure 117/58 L 105/55 L 109/52 L Pulse Oximetry 88 L 89 L 85 L 07/04/18 23:29 07/05/18 00:00 07/05/18 00:04 Temperature 97.8 F Pulse Rate 59 L 59 L Respiratory Rate 22 26 H Blood Pressure 109/56 L Pulse Oximetry 93 L 84 L 87 L 07/05/18 01:00 07/05/18 02:00 07/05/18 03:00 Temperature Pulse Rate 61 61 59 L Respiratory Rate 23 31 H 18 Blood Pressure 108/52 L 112/60 137/68 Pulse Oximetry 71 L 87 L 93 L 07/05/18 04:00 07/05/18 07:36 07/05/18 08:00 Temperature 98.2 F 97.7 F Pulse Rate 58 L 61 60 Respiratory Rate 32 H 18 22 Blood Pressure 128/62 126/66 Pulse Oximetry 88 L 96 89 L 07/05/18 09:09 Temperature Pulse Rate Respiratory Rate Blood Pressure Pulse Oximetry 93 L Intake & Output 07/04/18 07/05/18 07/05/18 18:59 06:59 18:59 Intake Total 650 / 650 330 / 330 Output Total 150 / 150 Balance 500 / 500 330 / 330 Weight 82 kg Intake: IV 250 / 250 210 / 210 Flexbumin 25% Inj 100 ML @ 60 100 / 100 110 / 110 mls/hr IV.SIG Q8H [facility] Rx#: [id number] Levaquin 250 mg Premix Inj 250 50 / 50 mg In 50 ml @ 50 mls/hr IV.SIG Q24H [facility] Rx#:[id number] Flagyl 500 MG Inj 100 ML @ 100 100 / 100 100 / 100 mls/hr IV.SIG Q8H [facility] Rx#: [id number] Oral 400 / 400 120 / 120 Output: Urine 150 / 150 Other: # Voids 2 # Incontinent Voids 1 Date of Last Bowel Movement 07/04/18 07/04/18 07/04/18 # Incontinent Bowel Movements 0 06/25/18 19:15 Fluid - Pleural fluid Fungal Smear - Final No fungal elements seen 06/25/18 19:15 Fluid - Pleural fluid Fungal Culture - Preliminary No growth in 1 week 06/25/18 17:15 Abscess - Chest Acid Fast Bacilli Smear - Final No acid fast bacilli seen 06/25/18 17:15 Abscess - Chest Mycobacterial Culture - Preliminary No growth in 1 week 06/25/18 17:45 Fluid - Peritoneal fluid Fungal Smear - Final No fungal elements seen 06/25/18 17:45 Fluid - Peritoneal fluid Fungal Culture - Preliminary No growth in 1 week 06/25/18 17:45 Fluid - Peritoneal fluid Acid Fast Bacilli Smear - Final No acid fast bacilli seen 06/25/18 17:45 Fluid - Peritoneal fluid Mycobacterial Culture - Preliminary No growth in 1 week Lab - Hematology Results 07/03/18 07/04/18 07/05/18 11:30 04:12 09:19 WBC 60.2 H 45.9 H 63.7 H RBC 3.39 L 3.07 L 3.32 L Hgb 10.2 L 9.2 L 9.9 L Hct 32.6 L 28.8 L 31.3 L MCV 96.2 94.0 94.4 MCH 30.0 30.1 30.0 MCHC 31.2 L 32.0 31.8 L RDW 17.1 16.4 17.3 H Plt Count 279 195 D 237 MPV 8.6 8.6 8.5 Prelim Diff (Auto) Slide review pending Slide review pending Slide review pending Neut % (Auto) 33.3 32.7 25.4 Lymph % (Auto) 64.5 H 64.4 H 70.3 H [place] % (Auto) 2.0 2.7 3.0 Eos % (Auto) 0.0 0.1 1.1 Baso % (Auto) 0.2 0.1 0.2 Neut # (Auto) 20.0 H 15.0 H 16.2 H Lymph # (Auto) 38.8 H 29.5 H 44.8 H [place] # (Auto) 1.2 H 1.3 H 1.9 H Eos # (Auto) 0.0 0.0 0.7 H Baso # (Auto) 0.1 0.1 0.1 WBC Differential Manual diff final Manual diff final Seg Neuts % (Manual) 34 25 Band Neuts % (Manual) 1 1 Lymphocytes % (Manual) 64 H 74 H Monocytes % (Manual) 1 Abs Neuts (Manual) 21.1 H 11.9 H Differential Comment . . . Smudge Cells Present H Present H Platelet Estimate Normal Normal Platelet Morphology Normal Normal RBC Morphology Normal Ovalocytes 1+ H [place] Cells 1+ H Lab - Chemistry Results 07/03/18 07/03/18 07/03/18 11:30 12:04 16:39 Sodium 138 Potassium 5.6 H Chloride 106 Carbon Dioxide 21.5 Anion Gap 11 BUN 70 H Creatinine 4.31 H Estimated GFR 10 L POC Glucose 249 H 209 H Random Glucose 195 H Calcium 8.8 D 07/03/18 07/04/18 07/04/18 19:46 04:12 09:02 Sodium 140 Potassium 5.2 H Chloride 108 H Carbon Dioxide 20.5 L Anion Gap 12 BUN 77 H Creatinine 4.59 H Estimated GFR 9 L POC Glucose 162 H 133 H Random Glucose 105 Calcium 8.8 07/04/18 07/04/18 07/04/18 12:01 17:36 23:43 Sodium Potassium Chloride Carbon Dioxide Anion Gap BUN Creatinine Estimated GFR POC Glucose 179 H 203 H 176 H Random Glucose Calcium 07/05/18 07/05/18 07:37 09:19 Sodium 138 Potassium 5.1 Chloride 106 Carbon Dioxide 20.9 L Anion Gap 11 BUN 87 H Creatinine 5.32 H Estimated GFR 8 L POC Glucose 154 H Random Glucose 160 H Calcium 9.0 Imaging: ITS Impressions Abdomen Ultrasound 06/25/18 00:00 CONCLUSION: 1. Moderate ascites 2. Hepatic cirrhosis Abdomen/Pelvis CT 06/25/18 00:00 CONCLUSION: 1. Suspected cirrhotic liver. 2. Mild to moderate amount of ascites. 3. Bilateral pleural effusions being mild on the right and minimal on the left. 4. Increased density at the inferior right middle lobe and right lower lobe likely related to consolidation or atelectasis. 5. Anasarca 6. Tiny nonobstructing left renal stone. Chest Ultrasound 06/25/18 00:00 CONCLUSION: 1. Large right pleural effusion without appreciable loculation. Thoracentesis Ultrasound 06/25/18 00:00 CONCLUSION: 1. Uncomplicated right thoracentesis. Head CT 06/25/18 06:47 CONCLUSION: 1. Stable evaluation of the head. 2. No evidence of acute infarct, hemorrhage, mass or edema. . Paracentesis Ultrasound 06/29/18 00:00 CONCLUSION: 1. Uncomplicated paracentesis. TIPS 07/01/18 00:00 CONCLUSION: 1. Uncomplicated fluoroscopic guided placement of TIPS shunts from the right hepatic vein to the right portal vein, as above. PLAN: Baseline ultrasound examination in 2 weeks with surveillance ultrasound at 3 months, 6 months and one year. Chest X-Ray 07/02/18 00:00 CONCLUSION: Radiographic findings concerning for possible congestive heart failure with severe pulmonary edema versus ARDS. Physical Exam: GENERAL: awake and alert, NAD SKIN: Cool and dry. No generalized rash. HEAD: Atraumatic. Normocephalic. No temporal wasting, or tenderness. EYES: [place] conjunctiva. No petechia or hemorrhage. No scleral icterus. No injection or drainage. EARS, NOSE AND THROAT: Mucous membranes pink and moist. No oral lesions noted. No exudate. No oral thrush. NECK: Ecchymoses R side where they had venipunture for TIPS CARDIOVASCULAR: Regular rate and rhythm. No murmurs, rubs or gallops heard RESPIRATORY: Decreased breath sounds at bases ABDOMEN: Globular, soft, non-tender, mildly distended. Bowel sounds present and normoactive. No guarding. No rebound. No organomegaly. EXTREMITIES: No clubbing, cyanosis. Has mild pedal edema. No calf tenderness. NEUROLOGICAL: Grossly non-focal. PSYCHIATRIC: Normal affect, calm and cooperative. LINE: No evidence of infection Assessment and Plan - Plan Impression Leukocytosis, etiology? - ?reactive, up again - no obvious source of infection - CXR now clear after tap - no UA, no complaints - C diff negative - ?part of her CLL, has lymphocyte predominance on manual diff Bilateral infiltrates - CHF likely, or ARDS Eligio effusions and ascites, etiology? Known CLL, stage 0 Ascites, has liver cirrhosis on imaging - S/P TIPS Chest pain, ?etiology - ?related to TIPS Renal failure, creatinine rising Recommendation Follow CBC Continue Levaquin and Flagyl for now - change to po - switched to oral Follow respiratory status Monitor progress Poor prognosis D/W IONA
[2018-07-05 10:45] LABS: Eosinophils 1 % (0-4); Lymphocytes 83 % (9-44); Smudge Cells Present; Tallied Nucleated RBC 1 (0-0)
[2018-07-05 10:47] LABS: Platelet Estimate Normal (Normal); Platelet Morphology Normal (Normal)
--- NOTE | 2018-07-05 11:00 | P.PNPL ---
Subjective Interval history: 72 YOWF with br asthma, DM, Rt lung infilt and Pl eff Breathing better no Abd pain no fever. had TIPS procedure On NC 6lit, does't want CPAP Anxious to go home Cr increased 5.32 . WBC increased 63K Physical Exam Vital signs: Vital Signs 07/04/18 11:00 07/04/18 11:01 07/04/18 11:30 Temperature Pulse Rate 59 L 55 L 58 L Respiratory Rate 21 16 18 Blood Pressure 132/62 119/64 Pulse Oximetry 95 95 94 L 07/04/18 11:52 07/04/18 12:00 07/04/18 12:01 Temperature 97.8 F Pulse Rate 58 L 57 L Respiratory Rate 23 21 Blood Pressure 106/68 106/68 Pulse Oximetry 95 93 L 92 L 07/04/18 13:00 07/04/18 14:00 07/04/18 14:08 Temperature Pulse Rate 54 L 62 61 Respiratory Rate 22 24 18 Blood Pressure 149/70 H Pulse Oximetry 88 L 91 L 93 L 07/04/18 15:00 07/04/18 16:00 07/04/18 16:01 Temperature 98.0 F Pulse Rate 61 60 60 Respiratory Rate 22 20 18 Blood Pressure 117/55 L 117/55 L Pulse Oximetry 90 L 92 L 93 L 07/04/18 17:00 07/04/18 18:00 07/04/18 18:01 Temperature Pulse Rate 59 L 64 64 Respiratory Rate 16 31 H 34 H Blood Pressure 124/59 L 113/55 L Pulse Oximetry 90 L 83 L 83 L 07/04/18 19:00 07/04/18 19:01 07/04/18 19:36 Temperature Pulse Rate 63 63 62 Respiratory Rate 24 23 22 Blood Pressure 137/62 Pulse Oximetry 87 L 87 L 07/04/18 19:37 07/04/18 20:00 07/04/18 21:00 Temperature 97.8 F Pulse Rate 60 62 Respiratory Rate 27 H 21 Blood Pressure 117/59 L 117/58 L Pulse Oximetry 93 L 92 L 88 L 07/04/18 22:00 07/04/18 23:00 07/04/18 23:29 Temperature Pulse Rate 54 L 61 Respiratory Rate 14 17 Blood Pressure 105/55 L 109/52 L Pulse Oximetry 89 L 85 L 93 L 07/05/18 00:00 07/05/18 00:04 07/05/18 01:00 Temperature 97.8 F Pulse Rate 59 L 59 L 61 Respiratory Rate 22 26 H 23 Blood Pressure 109/56 L 108/52 L Pulse Oximetry 84 L 87 L 71 L 07/05/18 02:00 07/05/18 03:00 07/05/18 04:00 Temperature 98.2 F Pulse Rate 61 59 L 58 L Respiratory Rate 31 H 18 32 H Blood Pressure 112/60 137/68 128/62 Pulse Oximetry 87 L 93 L 88 L 07/05/18 07:36 07/05/18 08:00 07/05/18 09:09 Temperature 97.7 F Pulse Rate 61 60 Respiratory Rate 18 22 Blood Pressure 126/66 Pulse Oximetry 96 89 L 93 L Intake & Output 07/04/18 07/05/18 07/05/18 18:59 06:59 18:59 Intake Total 650 / 650 330 / 330 Output Total 150 / 150 Balance 500 / 500 330 / 330 Weight 82 kg Intake: IV 250 / 250 210 / 210 Flexbumin 25% Inj 100 ML @ 60 100 / 100 110 / 110 mls/hr IV.SIG Q8H [facility] Rx#: [id number] Levaquin 250 mg Premix Inj 250 50 / 50 mg In 50 ml @ 50 mls/hr IV.SIG Q24H [facility] Rx#:[id number] Flagyl 500 MG Inj 100 ML @ 100 100 / 100 100 / 100 mls/hr IV.SIG Q8H [facility] Rx#: [id number] Oral 400 / 400 120 / 120 Output: Urine 150 / 150 Other: # Voids 2 # Incontinent Voids 1 Date of Last Bowel Movement 07/04/18 07/04/18 07/04/18 # Incontinent Bowel Movements 0 GENERAL: MBMN Mild sob SKIN: Warm and dry. HEAD: Normocephalic. EYES: No scleral icterus. No injection or drainage. NECK: Supple, trachea midline. No JVD or lymphadenopathy. CARDIOVASCULAR: Regular rate and rhythm without murmurs, gallops, or rubs. RESPIRATORY: Breath sounds equal bilaterally. No accessory muscle use. GASTROINTESTINAL: Abdomen soft, non-tender, nondistended. MUSCULOSKELETAL: No cyanosis, or edema. BACK: Nontender without obvious deformity. No CVA tenderness. Assessment and Plan - Plan IMPRESSION: 1. Right lung infiltrate. 2. Right pleural effusion. 3. Dyspnea. 4. Diabetes mellitus. 5. Hypertension. 6. Renal insufficiency and chronic kidney disease. 7. CLL 8. S/P TIPS 9. Severe leucocytosis 10. Worsening renal functions, ? hepatorenal synd PLAN: Cont Abx per ID Aerosol nebs Heparin 5000 IU SQ q 12 hrs Supplement 02 to keep sat >90% Use high flow of needed Pt anxious to go home but wants to remain full code and active treatment Medically not stable to dc if she wants active treatment Suggested Comfort care, hospice, she declines it
--- NOTE | 2018-07-05 13:01 | P.CONPSY ---
Provisional Diagnosis Admission Date: June 25, 2018 10:18 [place] I.: Adjustment disorder with mixed depressed mood and anxiety History of Present Illness Primary Care Provider: UNKNOWN Chief Complaint: shortness of breath History of Present Illness: The patient is a 72-year-old woman, domiciled in [place] with , no kids, supported by Social Security, with no previous psychiatric history, no pre -suicide attempts, no previous hospitalizations, with a past medical history of chronic lymphoid leukemia, asthma, diabetes mellitus, fatty liver, gout, arthritis, kidney disease, and thyroid disease. Patient presented to the emergency room on 06/25/18 for evaluation of generalized weakness, abdominal distention, shortness of breath and a painful bump on her head which she sustained from a fall from her water bed a week prior to presenting to the emergency room. Diagnostic EGD has showed that patient has liver cirrhosis. Clinical course complicated by shortness of breath, worsening renal function, and recurrent ascites. Consulted to psychiatry to address out behavior. Chart reviewed. On my psychiatric evaluation the patient is calm, cooperative. She said that she is feeling much better today. She says that she will feel even better if she is discharge before the holidays. She complains of being anxious and desperate, especially during the night due to the lack of sleep. She reports a much better mood today, denies anhedonia, denies hopelessness, denies helplessness, denies suicidal and homicidal ideation. She does report that she is having a hard time sleeping at night, melatonin is not helping. The patient is fully oriented x3, no attention deficit, no fluctuation of consciousness. She is logical, coherent and relevant. No loosening of associations, no ideas of reference, no paranoia present at the moment. PPHx: No psychiatric history, no hospitalizations, no previous suicide attempt PMHx:medical history of chronic lymphoid leukemia, asthma, diabetes mellitus, fatty liver, gout, arthritis, kidney disease, and thyroid disease Family Hx: No family psychiatric history Social Hx: Patient was born and raised in [place], she lives in [place] with her , no kids, supported by Social Security, her highest level of education is some college Review of Systems All other systems reviewed negative except as stated in HPI Psychiatric: Reports anxiety, Reports other (Insomnia) PMFSH - History History Provided By: Medical Record - Medical History Medical History: Medical History (Last Reviewed 07/01/18 @ 08:30 by Víctor Paris) Hypertension (Acute) Arthritis Asthma Chronic lymphoid leukemia Diabetes mellitus Fatty liver Gout Hypertension Kidney disease Thyroid disease - Surgical History Surgical History: Surgical History (Last Reviewed 07/01/18 @ 08:30 by Víctor Paris) H/O Achilles tendon repair H/O foot surgery H/O thyroidectomy History of back surgery History of colonoscopy - Family History Family History: Family History (Last Updated 06/29/18 @ 12:02 by Leo Steinberg) Mother Breast cancer Stroke Father Motor vehicle accident Sister Spina bifida Other No pertinent family history - Tobacco History Second Hand Smoke Exposure: No Smoking Status: Never smoker - Alcohol History How Often Do You Have a Drink Containing Alcohol: Monthly or less - Substance Use History Substance History: No History of Abuse - Travel History Recent Travel in the [place] Within the Last 8 Weeks: No Recent Travel Out of the Country Within the Last 8 Weeks: No - Immunization History Tetanus Immunization: Unsure Hx Influenza Vaccine This Season: Yes Medications and Allergies Active Medications: Active Medications Albuterol (Duoneb Neb (Valencia)) 1 ampul NEB Q6HR WHILE AWAKE NEB [facility] Last Admin: 07/05/18 07:35 Dose: 1 ampul Dextrose (D50w Vial) 50 ml IV.PUSH UNSCH PRN PRN Reason: PER HYPOGLYCEMIA PROTOCOL Furosemide (Lasix Inj) 20 mg IV.PUSH BID@0900,1800 [facility] Last Admin: 07/05/18 08:46 Dose: 20 mg Glucagon (Glucagon Inj) 1 mg OTHER PRN PRN PRN Reason: for Hypoglycemia Protocol Heparin Sodium (Porcine) (Heparin Inj) 5,000 units SQ Q12HR [facility] Sodium Chloride (Ns Inj) 500 mls @ 30 mls/hr IV.SIG .Q10H [facility] Last Admin: 06/28/18 17:12 Dose: Not Given Albumin Human (Flexbumin 25% Inj) 100 mls @ 60 mls/hr IV.SIG Q8H [facility] Last Admin: 07/05/18 10:43 Dose: 60 mls/hr Insulin Aspart (Novolog Insulin Correctional Sugar Inj) 0 unit SQ ACHS [facility]; Protocol Last Admin: 07/05/18 12:07 Dose: Not Given Lactulose (Lactulose Liq) 30 ml PO DAILY [facility] Last Admin: 07/05/18 08:02 Dose: Not Given Levofloxacin (Levaquin) 250 mg PO Q48H [facility] Stop: 07/11/18 09:01 Melatonin (Melatonin) 5 mg PO HS PRN PRN Reason: INSOMNIA Last Admin: 07/02/18 22:46 Dose: 5 mg Metronidazole (Flagyl) 250 mg PO Q8HR [facility] Stop: 07/10/18 13:59 Midodrine (Proamatine) 10 mg PO TID@0700,1200,1700 [facility] Last Admin: 07/05/18 12:10 Dose: 10 mg Mirtazapine (Remeron) 15 mg PO HS [facility] Nadolol (Corgard) 20 mg PO DAILY [facility] Last Admin: 07/05/18 08:02 Dose: 20 mg Octreotide Acetate (Sandostatin Inj) 50 mcg IV.PUSH Q8HR [facility] Last Admin: 07/05/18 05:34 Dose: Not Given Ondansetron HCl (Zofran Inj) 4 mg IV.PUSH Q6H PRN PRN Reason: nausea/vomiting Last Admin: 07/03/18 13:03 Dose: 4 mg Pantoprazole Sodium (Protonix) 40 mg PO DAILY [facility] Last Admin: 07/05/18 08:01 Dose: 40 mg Sodium Chloride (Ns Flush) 2 ml IV.FLUSH PRN PRN PRN Reason: FLUSH AFTER USING IV ACCESS Sodium Chloride (Ns Flush) 2 ml IV.FLUSH BID [facility] Last Admin: 07/05/18 08:03 Dose: Not Given Allergies Allergy/AdvReac Type Severity Reaction Status Date / Time No Known Allergies Allergy Verified 06/25/18 05:25 Home Medications Medication Instructions Recorded Confirmed Type Multi Vitamin PO DAILY 06/25/18 History allopurinol PO DAILY 06/25/18 History glipizide PO DAILY 06/25/18 History levothyroxine 300 mcg PO DAILY 06/25/18 06/25/18 History Exam Vital signs: Vital Signs 07/04/18 13:00 07/04/18 14:00 07/04/18 14:08 Temperature Pulse Rate 54 L 62 61 Respiratory Rate 22 24 18 Blood Pressure 149/70 H Pulse Oximetry 88 L 91 L 93 L 07/04/18 15:00 07/04/18 16:00 07/04/18 16:01 Temperature 98.0 F Pulse Rate 61 60 60 Respiratory Rate 22 20 18 Blood Pressure 117/55 L 117/55 L Pulse Oximetry 90 L 92 L 93 L 07/04/18 17:00 07/04/18 18:00 07/04/18 18:01 Temperature Pulse Rate 59 L 64 64 Respiratory Rate 16 31 H 34 H Blood Pressure 124/59 L 113/55 L Pulse Oximetry 90 L 83 L 83 L 07/04/18 19:00 07/04/18 19:01 07/04/18 19:36 Temperature Pulse Rate 63 63 62 Respiratory Rate 24 23 22 Blood Pressure 137/62 Pulse Oximetry 87 L 87 L 07/04/18 19:37 07/04/18 20:00 07/04/18 21:00 Temperature 97.8 F Pulse Rate 60 62 Respiratory Rate 27 H 21 Blood Pressure 117/59 L 117/58 L Pulse Oximetry 93 L 92 L 88 L 07/04/18 22:00 07/04/18 23:00 07/04/18 23:29 Temperature Pulse Rate 54 L 61 Respiratory Rate 14 17 Blood Pressure 105/55 L 109/52 L Pulse Oximetry 89 L 85 L 93 L 07/05/18 00:00 07/05/18 00:04 07/05/18 01:00 Temperature 97.8 F Pulse Rate 59 L 59 L 61 Respiratory Rate 22 26 H 23 Blood Pressure 109/56 L 108/52 L Pulse Oximetry 84 L 87 L 71 L 07/05/18 02:00 07/05/18 03:00 07/05/18 04:00 Temperature 98.2 F Pulse Rate 61 59 L 58 L Respiratory Rate 31 H 18 32 H Blood Pressure 112/60 137/68 128/62 Pulse Oximetry 87 L 93 L 88 L 07/05/18 05:00 07/05/18 05:01 07/05/18 06:00 Temperature Pulse Rate 61 60 60 Respiratory Rate 29 H 33 H 27 H Blood Pressure 105/76 Pulse Oximetry 90 L 89 L 89 L 07/05/18 06:02 07/05/18 07:00 07/05/18 07:36 Temperature Pulse Rate 61 59 L 61 Respiratory Rate 27 H 20 18 Blood Pressure 104/55 L 116/63 Pulse Oximetry 86 L 90 L 96 07/05/18 08:00 07/05/18 09:00 07/05/18 09:01 Temperature 97.7 F Pulse Rate 60 59 L 59 L Respiratory Rate 22 18 17 Blood Pressure 126/66 139/67 Pulse Oximetry 89 L 93 L 93 L 07/05/18 09:09 07/05/18 10:00 07/05/18 10:02 Temperature Pulse Rate 62 62 Respiratory Rate 24 18 Blood Pressure 142/67 H Pulse Oximetry 93 L 86 L 87 L 07/05/18 11:00 07/05/18 11:01 07/05/18 12:00 Temperature 97.8 F Pulse Rate 57 L 56 L 61 Respiratory Rate 18 18 25 H Blood Pressure 120/65 125/75 Pulse Oximetry 94 L 93 L 92 L Intake & Output 07/04/18 07/05/18 07/05/18 18:59 06:59 18:59 Intake Total 650 / 650 330 / 330 90 / 90 Output Total 150 / 150 Balance 500 / 500 330 / 330 90 / 90 Weight 82 kg Intake: IV 250 / 250 210 / 210 90 / 90 Flexbumin 25% Inj 100 ML @ 60 100 / 100 110 / 110 90 / 90 mls/hr IV.SIG Q8H [facility] Rx#: [id number] Levaquin 250 mg Premix Inj 250 50 / 50 mg In 50 ml @ 50 mls/hr IV.SIG Q24H [facility] Rx#:[id number] Flagyl 500 MG Inj 100 ML @ 100 100 / 100 100 / 100 mls/hr IV.SIG Q8H [facility] Rx#: [id number] Oral 400 / 400 120 / 120 Output: Urine 150 / 150 Other: # Voids 2 # Incontinent Voids 1 Date of Last Bowel Movement 07/04/18 07/04/18 07/04/18 # Incontinent Bowel Movements 0 Mental Status Examination Appearance: Appropriate Consciousness: Alert Orientation: x4 Motor Activity: Normal gait Speech: Unremarkable Language: Adequate Fund of Knowledge: Adequate Attention and Concentration: Adequate Memory: Unremarkable Mood: Appropriate Affect: Appropriate Thought Process & Associations: Intact Thought Content: Appropriate Hallucination Type: None Delusion Type: None Suicidal Ideation: No Suicidal Plan: No Suicidal Intention: No Homicidal Ideation: No Homicidal Plan: No Homicidal Intention: No Insight: Adequate Judgment: Adequate Assessment and Plan - Assessment (1) Adjustment disorder with mixed anxiety and depressed mood Code(s): F43.23 - Adjustment disorder with mixed anxiety and depressed mood Status: Acute - Plan Plan: On my psychiatric evaluation today the patient presents calm, cooperative, logical, coherent and pleasant. The patient reports good mood, denies anhedonia , denies hopelessness, helplessness, denies worthlessness, guiltiness, denies suicidal and homicidal ideation, denies visual and auditory hallucinations at the moment. The patient is fully oriented x3, no attention deficit, no fluctuation of consciousness. The patient does report of nighttime anxiety and difficulty sleeping at night. Episodically feels desperate to go home. She does not meet criteria for involuntary psychiatric admission. We will start Remeron 15 mg to help with mood, insomnia and anxiety. Support, motivational psych education provided. Consult appreciated. Justification for Continued Inpatient Stay: No admission indicated.
--- NOTE | 2018-07-05 14:06 | P.PN ---
Subjective Interval history: Still with sob and requiring 6L by NC, and NRB. More calm today. Still insistent to go home, doesn't want hospice No fever or chills.No coughing Feels tired. Physical Exam Vital signs: Vital Signs 07/04/18 14:08 07/04/18 15:00 07/04/18 16:00 Temperature 98.0 F Pulse Rate 61 61 60 Respiratory Rate 18 22 20 Blood Pressure 149/70 H 117/55 L Pulse Oximetry 93 L 90 L 92 L 07/04/18 16:01 07/04/18 17:00 07/04/18 18:00 Temperature Pulse Rate 60 59 L 64 Respiratory Rate 18 16 31 H Blood Pressure 117/55 L 124/59 L Pulse Oximetry 93 L 90 L 83 L 07/04/18 18:01 07/04/18 19:00 07/04/18 19:01 Temperature Pulse Rate 64 63 63 Respiratory Rate 34 H 24 23 Blood Pressure 113/55 L 137/62 Pulse Oximetry 83 L 87 L 87 L 07/04/18 19:36 07/04/18 19:37 07/04/18 20:00 Temperature 97.8 F Pulse Rate 62 60 Respiratory Rate 22 27 H Blood Pressure 117/59 L Pulse Oximetry 93 L 92 L 07/04/18 21:00 07/04/18 22:00 07/04/18 23:00 Temperature Pulse Rate 62 54 L 61 Respiratory Rate 21 14 17 Blood Pressure 117/58 L 105/55 L 109/52 L Pulse Oximetry 88 L 89 L 85 L 07/04/18 23:29 07/05/18 00:00 07/05/18 00:04 Temperature 97.8 F Pulse Rate 59 L 59 L Respiratory Rate 22 26 H Blood Pressure 109/56 L Pulse Oximetry 93 L 84 L 87 L 07/05/18 01:00 07/05/18 02:00 07/05/18 03:00 Temperature Pulse Rate 61 61 59 L Respiratory Rate 23 31 H 18 Blood Pressure 108/52 L 112/60 137/68 Pulse Oximetry 71 L 87 L 93 L 07/05/18 04:00 07/05/18 05:00 07/05/18 05:01 Temperature 98.2 F Pulse Rate 58 L 61 60 Respiratory Rate 32 H 29 H 33 H Blood Pressure 128/62 105/76 Pulse Oximetry 88 L 90 L 89 L 07/05/18 06:00 07/05/18 06:02 07/05/18 07:00 Temperature Pulse Rate 60 61 59 L Respiratory Rate 27 H 27 H 20 Blood Pressure 104/55 L 116/63 Pulse Oximetry 89 L 86 L 90 L 07/05/18 07:36 07/05/18 08:00 07/05/18 09:00 Temperature 97.7 F Pulse Rate 61 60 59 L Respiratory Rate 18 22 18 Blood Pressure 126/66 Pulse Oximetry 96 89 L 93 L 07/05/18 09:01 07/05/18 09:09 07/05/18 10:00 Temperature Pulse Rate 59 L 62 Respiratory Rate 17 24 Blood Pressure 139/67 Pulse Oximetry 93 L 93 L 86 L 07/05/18 10:02 07/05/18 11:00 07/05/18 11:01 Temperature Pulse Rate 62 57 L 56 L Respiratory Rate 18 18 18 Blood Pressure 142/67 H 120/65 Pulse Oximetry 87 L 94 L 93 L 07/05/18 12:00 07/05/18 13:18 Temperature 97.8 F Pulse Rate 61 61 Respiratory Rate 25 H 21 Blood Pressure 125/75 Pulse Oximetry 92 L Intake & Output 07/04/18 07/05/18 07/05/18 18:59 06:59 18:59 Intake Total 650 / 650 330 / 330 90 / 90 Output Total 150 / 150 Balance 500 / 500 330 / 330 90 / 90 Weight 82 kg Intake: IV 250 / 250 210 / 210 90 / 90 Flexbumin 25% Inj 100 ML @ 60 100 / 100 110 / 110 90 / 90 mls/hr IV.SIG Q8H [facility] Rx#: [id number] Levaquin 250 mg Premix Inj 250 50 / 50 mg In 50 ml @ 50 mls/hr IV.SIG Q24H [facility] Rx#:[id number] Flagyl 500 MG Inj 100 ML @ 100 100 / 100 100 / 100 mls/hr IV.SIG Q8H [facility] Rx#: [id number] Oral 400 / 400 120 / 120 Output: Urine 150 / 150 Other: # Voids 2 # Incontinent Voids 1 Date of Last Bowel Movement 07/04/18 07/04/18 07/04/18 # Incontinent Bowel Movements 0 Narrative: GENERAL: 72 yo female, chronically ill, appears sob. SKIN: Pale. CARDIOVASCULAR: Regular rate and rhythm. No murmurs, rubs or gallops heard RESPIRATORY: Decreased breath sounds. No use of accessory muscles. ABDOMEN: non-tender, mildly distended. Bowel sounds present and normoactive. EXTREMITIES: No clubbing, cyanosis. NEUROLOGICAL: Awake and alert. PSYCHIATRIC: Normal affect, calm and cooperative today. Results - Labs CBC & Chem 7: 07/05/18 09:19 07/05/18 09:19 Laboratory Results - last 24 hr 07/04/18 07/04/18 07/05/18 17:36 23:43 07:37 WBC RBC Hgb Hct MCV MCH MCHC RDW Plt Count MPV Prelim Diff (Auto) Neut % (Auto) Lymph % (Auto) Perkins % (Auto) Eos % (Auto) Baso % (Auto) Neut # (Auto) Lymph # (Auto) Perkins # (Auto) Eos # (Auto) Baso # (Auto) WBC Differential Seg Neuts % (Manual) Band Neuts % (Manual) Lymphocytes % (Manual) Eosinophils % (Manual) Abs Neuts (Manual) Nucleated RBCs/100 WBC Differential Comment Smudge Cells Platelet Estimate Platelet Morphology Sodium Potassium Chloride Carbon Dioxide Anion Gap BUN Creatinine Estimated GFR POC Glucose 203 H 176 H 154 H Random Glucose Calcium 07/05/18 07/05/18 07/05/18 09:19 09:19 11:58 WBC 63.7 H RBC 3.32 L Hgb 9.9 L Hct 31.3 L MCV 94.4 MCH 30.0 MCHC 31.8 L RDW 17.3 H Plt Count 237 MPV 8.5 Prelim Diff (Auto) Slide review pending Neut % (Auto) 25.4 Lymph % (Auto) 70.3 H Perkins % (Auto) 3.0 Eos % (Auto) 1.1 Baso % (Auto) 0.2 Neut # (Auto) 16.2 H Lymph # (Auto) 44.8 H Perkins # (Auto) 1.9 H Eos # (Auto) 0.7 H Baso # (Auto) 0.1 WBC Differential Manual diff final Seg Neuts % (Manual) 15 L Band Neuts % (Manual) 1 Lymphocytes % (Manual) 83 H Eosinophils % (Manual) 1 Abs Neuts (Manual) 10.2 H Nucleated RBCs/100 WBC 1 H Differential Comment . Smudge Cells Present H Platelet Estimate Normal Platelet Morphology Normal Sodium 138 Potassium 5.1 Chloride 106 Carbon Dioxide 20.9 L Anion Gap 11 BUN 87 H Creatinine 5.32 H Estimated GFR 8 L POC Glucose 127 H Random Glucose 160 H Calcium 9.0 Assessment and Plan - Assessment (1) Acute on chronic kidney failure Code(s): N17.9 - Acute kidney failure, unspecified; N18.9 - Chronic kidney disease, unspecified Status: Acute (2) Pneumonia Code(s): J18.9 - Pneumonia, unspecified organism Status: Acute (3) Diabetes Code(s): E11.9 - Type 2 diabetes mellitus without complications Status: Acute (4) Abdominal distension Code(s): R14.0 - Abdominal distension (gaseous) Status: Acute - Plan Acute respiratory failure. Patient is noted dessating in 80s while on 2L NC abg STAT , cxr, CBC, BMP Received SOLUMEDROL X1 TIME IV , LASIX 20 MG IV ONCE, DUONEBS ABG reviewed patient placed on NRM and still dessating , transferred to ICU for BIPAP CXR shows congestion Continue lasix and continue albumin Repeat ABG 07/03 still hyopoxic , needs BIPAP. Patient agrees to BIPAP. Noted hypoxic starting on 07/02. Patient was transferred to ICU for BIPAP however she was refusing BIPAP , and was non compliant with NRM. Was having BiPAP for a couple of hours on 07/03 , on/off with NRM and O2 at 6L. Patient threatens to leave AMA Wants to discussed with hospice options to go home. Patient is hospice candidate however she is refusing hospice. Sepsis ( leukocytosis/ tachycardia) due to pneumonia; continue with IV antibiotics- cultures negative so far. Pneumonia/ right pleural effusion; Abx as noted above-cultures negative so far- neb treatments. s/p thoracentesis- cultures negative so far. ID consult appreciated. echo with EF 55%. echo was d/w ;mobile density reported on the echo probably is not significant clinically. pulmonary following. ID, pulm ff Abdominal distention/ ascites; s/p paracentesis- hepatitis panel negative- diuretics stopped due to SIERRA- GI following. 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 Very poor prognosis. Esophageal ulcer/ gastritis; continue PPI- GI following. Leukocytosis- no fever and no obvious source for infection so far- will consult Oncology in light of history of CLL. Fall/ generalized weakness; consulted PT. PT recommends rehab however patient wants to go home Diabetes mellitus; started on accu-check with SSI Acute kidney injury superimposed on chronic renal insufficiency; likely hepatorenal syndrome-diuretics discontinued. nephrology following; will consider HD if no improvement in kidney function. -DVT prophylaxis with subq heparin palliative care following. FULL CODE. The patient is refusing on/off O2 supplement, NRM , and she is refusing BIPAP says she wants to go out of ICU floor. However patient ABG shows hypoxia and needs BIPAP. Discussed with the patient at length again, also discussed with the at bedside. Patient agrees to have the BiPAP on today 07/03 , says she will leave AMA tomorrow. Discussed with the patient goals of care, she and wants full code and everything done, refusing hospice. DC plan. S/p TIPS by IR on 07/01/18. PT recommends rehab however patient wants to go home since her can help her however she is not safe for discharge at this time. Noted hypoxic starting on 07/02. Patient was transferred to ICU for BIPAP however she was refusing BIPAP , and was non compliant with NRM. Was having BiPAP for a couple of hours on 07/03 , on/off with NRM and O2 at 6L. Patient threatens to leave AMA Wants to discussed with hospice options to go home. Psych consulted for eval if patient can make decisions to leave AMA says he can;t take care of her at home Yogesh transfer out of ICU as patient is refusing BiPAP and also repeat ABG reassuring. Patient still needs high flow O2 Seen by psych , discussed with Dr Ramirez psych . patient can make decisions. Can't be discharged yet , not cleared by consultants, patient still requiring high flow O2. Patient with very poor prognosis, candidate for hospice , however the patient is refusing hospice. Discussed with the patient, ICU nurse, psych Dr Ramirez (2) Pneumonia Qualifiers: Pneumonia type: due to unspecified organism Laterality: right Lung location : middle lobe of lung Qualified Code(s): J18.1 - Lobar pneumonia, unspecified organism
[2018-07-05] MEDS: Mirtazapine 15 MG Tablet PO SCH (20:22)
[2018-07-05] MEDS: Melatonin 5 MG Tablet PO PRN (20:22)
[2018-07-05 23:04] LABS: ABG Base Excess -6.8 mmol/L (-2-2); ABG PCO2 41 mmHg (38-42); ABG PO2 87 mmHG (61-120)
[2018-07-05] MEDS: Sodium Bicarbonate 8.4% Inj 50 MEQ/50 ML Syringe IV.PUSH ONE ×2 (23:35→23:37)
--- NOTE | 2018-07-06 01:54 | XR ---
EXAM DATE: 07/06/2018 1:14 AM EST AGE/SEX: 72 years / Female INDICATIONS: Shortness of breath. CLINICAL DATA: This is the patient's subsequent encounter. Patient reports that signs and symptoms h ave been present for 4 - 6 days and indicates a pain score of Nonresponsive. MEDICAL/SURGICAL HISTORY: . Asthma. Diabetes. Hypertension. Leukemia. Gout. . Thyroidectomy. COMPARISON: [facility] – [place]ST 1V SINGLE AP, 07/02/2018. . FINDINGS: A single AP view of the chest demonstrates bilateral airspace disease. Cardiomegaly and probable pleu ral effusions. The cardiomediastinal contours are unremarkable. Osseous structures are intact. CONCLUSION: 1. Diffuse bilateral airspace disease more prominent on current study. 2. Probable small pleural effusions. Electronically signed by: Kar Jackson MD Board Certified Radiologist 07/06/2018 1:53 AM EST
[2018-07-06] MEDS: Albumin Human 25% Inj 100 ML IV.SIG SCH ×3 (02:06→18:03)
[2018-07-06] MEDS ORDERED: Etomidate Inj 40 MG/20 ML Vial IV.PUSH ONE (03:57)
--- NOTE | 2018-07-06 03:58 | P.EN ---
Patient has been confused and has been pulling off bipap all night. Ativan was given and she was able to tolerate bipap. Abg was completed at this time and showed a mild metabolic acidosis, 1 amp of bicarb given. As the night progressed patient was doing ok, then began to desat, chest xray showed small pleural effusions, lasix IV x 1 was then given. RN called about 3:45, patient is not not responding to sternal rub, stat abg ordered, labs stat ordered. Discussed case with Dr. Hernandez who is aware that abg is pending and may need intubation. Consult placed.
[2018-07-06 04:06] LABS: ABG Base Excess -5.7 mmol/L (-2-2); ABG PCO2 47 mmHg (38-42); ABG PO2 75 mmHg (61-120)
--- NOTE | 2018-07-06 04:12 | P.PCN ---
Date of procedure: 07/06/18 Pre-op diagnosis: Acute respiratory failure Post-op diagnosis: same Procedure: DATE: 07/06/2018 PROCEDURE: Orotracheal intubation INDICATION: Acute respiratory failure DETAILS OF PROCEDURE The patient was placed in optimal position and preoxygenated with 100% FiO2 via bag valve mask. At the start oxygen saturation was 95%. The patient was administered 20 mg etomidate IV. I entered the oropharynx with a size 4 laryngoscope blade and obtained a grade 2 view of the airway. On single attempt a size 8.0 cuffed endotracheal tube was passed through the vocal cords. Correct tube location was confirmed with end tidal CO2 detector and by auscultating over bilateral lung estrada. The endotracheal tube was secured with adhesive tape at a depth of 23 cm at the lips. The patient was connected to the ventilator. The patient tolerated the procedure well without any apparent complications. Oxygen saturations were maintained greater than 95% all times. STAT chest x-ray pending at time of dictation.
[2018-07-06] MEDS ORDERED: Etomidate Inj 20 MG/10 ML Ampul IV.PUSH ONE (04:13)
[2018-07-06] MEDS: fentaNYL 10 mcg/mL Premix Drip 2,500 MCG/250 ML BAG IV.SIG PRN (04:15)
[2018-07-06] MEDS ORDERED: Propofol 1000 mg/100 ml Inj 1,000 MG/100 ML BOTTLE IV.CONT PRN (04:16)
--- NOTE | 2018-07-06 04:35 | P.CONCC ---
History of Present Illness Service: Critical care medicine Consult date: 07/06/18 Requesting Physician: Dary Staton Reason for Consult: Critical care management Primary Care Provider: UNKNOWN Chief Complaint: shortness of breath History of Present Illness: This is a 72-year-old female. Admission 06/25/2008. Past medical history includes stage 0 CLL, asthma, diabetes, gout, hypertension and hypothyroidism. She initially presented to the hospital complaining of a several month history of progressive shortness of breath. This is associated orthopnea and difficulty ambulation. A dry nonproductive cough as well. No chest pain. On admission, patient was noted to have moderate ascites and a significant right pleural effusion. She received paracentesis on 06/25 5700 cc and on 06/28 5900 cc. She had a right-sided thoracentesis 1200 cc on 06/25. CT abdomen pelvis showed likely liver cirrhosis and moderate ascites. She also had a CT of the abdomen and pelvis which did not show any lymphadenopathy. She has not been febrile. She has had thoracentesis and they took out 1.2 L of fluid. 06/28 had an upper endoscopy. EGD revealed esophagitis, distal esophageal ulcer , portal hypertensive gastropathy. She started worsening renal failure and worsening leukocytosis. Due to the possibility of hepatorenal syndrome a TIPS was performed by IR 07/01. She has been on beta-ilana, diuretics and midodrine in the interim along with octreotide. Patient been pancultured which no growth today. Current levofloxacin and metronidazole. No obvious source of infection at the present time. The past couple nights patient is been in ICU. She is become more confused and will not keep her BiPAP on due to agitation. She is received 2 stenosis of lorazepam tonight. I was asked to see the patient due to worsening respiratory issues including tachypnea and altered mental status including unresponsive. PH is 7.35. PCO2 47. PO2 74. Base index -6. She is on a nonrebreather. She is intubated using 20 mg etomidate and 8.0 ET tube at 23 cm at lip. They were unable to pass an NG tube.. Review of Systems unobtainable due to endotracheal tube, unobtainable due to mental condition PMFSH - History History Provided By: Medical Record - Medical History Medical History: Medical History (Last Reviewed 07/06/18 @ 04:30 by Darryl Hernandez MD) Hypertension (Acute) Arthritis Asthma Chronic lymphoid leukemia Diabetes mellitus Fatty liver Gout Hypertension Kidney disease Thyroid disease - Surgical History Surgical History: Surgical History (Last Reviewed 07/06/18 @ 04:30 by Darryl Hernandez MD) H/O Achilles tendon repair H/O foot surgery H/O thyroidectomy History of back surgery History of colonoscopy - Family History Family History: Family History (Last Reviewed 07/06/18 @ 04:30 by Darryl Hernandez MD) Mother Breast cancer Stroke Father Motor vehicle accident Sister Spina bifida Other No pertinent family history - Social History I have reviewed the patient's Social History: Yes - Tobacco History Second Hand Smoke Exposure: No Smoking Status: Never smoker - Alcohol History How Often Do You Have a Drink Containing Alcohol: Monthly or less - Substance Use History Substance History: No History of Abuse - Travel History Recent Travel in the [facility] Within the Last 8 Weeks: No Recent Travel Out of the Country Within the Last 8 Weeks: No - Immunization History Tetanus Immunization: Unsure Hx Influenza Vaccine This Season: Yes Medications and Allergies Active Medications: Active Medications Acetaminophen (Tylenol Liq) 650 mg PO Q6H PRN PRN Reason: FEVER Albuterol (Duoneb Neb (Valencia)) 1 ampul NEB Q4HR NEB [facility] Albuterol (Albuterol Neb (Prn)) 2.5 mg NEB Q2HR NEB PRN PRN Reason: DYSPNEA Artificial Tears (Tears Naturale Opth Drops) 1 drop EACH EYE Q8H [facility] Chlorhexidine Gluconate (Peridex 0.12% Oral Kit) 15 ml OROPHARYNG BID@0800, 2000 [facility] Dextrose (D50w Vial) 50 ml IV.PUSH UNSCH PRN PRN Reason: PER HYPOGLYCEMIA PROTOCOL Furosemide (Lasix Inj) 20 mg IV.PUSH BID@0900,1800 [facility] Last Admin: 07/05/18 18:14 Dose: 20 mg Glucagon (Glucagon Inj) 1 mg OTHER PRN PRN PRN Reason: for Hypoglycemia Protocol Heparin Sodium (Porcine) (Heparin Inj) 5,000 units SQ Q12HR [facility] Sodium Chloride (Ns Inj) 500 mls @ 30 mls/hr IV.SIG .Q10H [facility] Last Admin: 06/28/18 17:12 Dose: Not Given Albumin Human (Flexbumin 25% Inj) 100 mls @ 60 mls/hr IV.SIG Q8H [facility] Last Admin: 07/06/18 02:06 Dose: 60 mls/hr Fentanyl (Fentanyl 10 Mcg/Ml Premix Drip) 2,500 mcg in 250 mls @ 5 mls/hr IV.SIG TITRATE PRN; Protocol PRN Reason: Per Protocol Propofol (Diprivan 1000 Mg/100 Ml Inj) 1,000 mg in 100 mls @ 2.46 mls/hr IV.CONT TITRATE PRN; Protocol PRN Reason: Per Protocol Insulin Aspart (Novolog Insulin Correctional Sugar Inj) 0 unit SQ ACHS [facility]; Protocol Last Admin: 07/05/18 21:05 Dose: Not Given Lactulose (Lactulose Liq) 30 ml PO DAILY [facility] Last Admin: 07/05/18 08:02 Dose: Not Given Levofloxacin (Levaquin) 250 mg PO Q48H [facility] Stop: 07/11/18 09:01 Melatonin (Melatonin) 5 mg PO HS PRN PRN Reason: INSOMNIA Last Admin: 07/05/18 20:22 Dose: 5 mg Metronidazole (Flagyl) 250 mg PO Q8HR [facility] Stop: 07/10/18 13:59 Last Admin: 07/05/18 21:05 Dose: 250 mg Midodrine (Proamatine) 10 mg PO TID@0700,1200,1700 [facility] Last Admin: 07/05/18 17:55 Dose: 10 mg Mirtazapine (Remeron) 15 mg PO HS [facility] Last Admin: 07/05/18 20:22 Dose: 15 mg Miscellaneous Medication () 1 each OROPHARYNG 0000,0400,1200,1600 [facility] Nadolol (Corgard) 20 mg PO DAILY [facility] Last Admin: 07/05/18 08:02 Dose: 20 mg Non-Formulary Medication (Levothyroxine [Levothyroxine]) 300 mcg PO DAILY [facility] Octreotide Acetate (Sandostatin Inj) 50 mcg IV.PUSH Q8HR [facility] Last Admin: 07/05/18 21:05 Dose: 50 mcg Ondansetron HCl (Zofran Inj) 4 mg IV.PUSH Q6H PRN PRN Reason: nausea/vomiting Last Admin: 07/03/18 13:03 Dose: 4 mg Pantoprazole Sodium (Protonix Inj) 40 mg IV.PUSH Q24H [facility] Sodium Chloride (Ns Flush) 2 ml IV.FLUSH PRN PRN PRN Reason: FLUSH AFTER USING IV ACCESS Sodium Chloride (Ns Flush) 2 ml IV.FLUSH BID [facility] Last Admin: 07/05/18 20:23 Dose: 2 ml Allergies Allergy/AdvReac Type Severity Reaction Status Date / Time No Known Allergies Allergy Verified 06/25/18 05:25 Home Medications Medication Instructions Recorded Confirmed Type Multi Vitamin PO DAILY 06/25/18 History allopurinol PO DAILY 06/25/18 History glipizide PO DAILY 06/25/18 History levothyroxine 300 mcg PO DAILY 06/25/18 06/25/18 History Physical Exam Vital signs: Vital Signs 07/05/18 05:00 07/05/18 05:01 07/05/18 06:00 Temperature Pulse Rate 61 60 60 Respiratory Rate 29 H 33 H 27 H Blood Pressure 105/76 Pulse Oximetry 90 L 89 L 89 L 07/05/18 06:02 07/05/18 07:00 07/05/18 07:36 Temperature Pulse Rate 61 59 L 61 Respiratory Rate 27 H 20 18 Blood Pressure 104/55 L 116/63 Pulse Oximetry 86 L 90 L 96 07/05/18 08:00 07/05/18 09:00 07/05/18 09:01 Temperature 97.7 F Pulse Rate 60 59 L 59 L Respiratory Rate 22 18 17 Blood Pressure 126/66 139/67 Pulse Oximetry 89 L 93 L 93 L 07/05/18 09:09 07/05/18 10:00 07/05/18 10:02 Temperature Pulse Rate 62 62 Respiratory Rate 24 18 Blood Pressure 142/67 H Pulse Oximetry 93 L 86 L 87 L 07/05/18 11:00 07/05/18 11:01 07/05/18 12:00 Temperature 97.8 F Pulse Rate 57 L 56 L 61 Respiratory Rate 18 18 25 H Blood Pressure 120/65 125/75 Pulse Oximetry 94 L 93 L 92 L 07/05/18 13:00 07/05/18 13:18 07/05/18 14:00 Temperature Pulse Rate 61 61 63 Respiratory Rate 16 21 31 H Blood Pressure 130/58 L Pulse Oximetry 91 L 79 L 07/05/18 14:01 07/05/18 15:00 07/05/18 16:00 Temperature 97.6 F Pulse Rate 64 62 58 L Respiratory Rate 34 H 22 15 Blood Pressure 117/60 121/64 130/59 L Pulse Oximetry 80 L 91 L 94 L 07/05/18 17:00 07/05/18 18:00 07/05/18 19:00 Temperature Pulse Rate 61 61 63 Respiratory Rate 22 25 H 35 H Blood Pressure 144/67 H 150/73 H 150/63 H Pulse Oximetry 96 94 L 92 L 07/05/18 19:56 07/05/18 19:59 07/05/18 20:00 Temperature 97.9 F Pulse Rate 65 65 Respiratory Rate 22 26 H Blood Pressure 146/69 H Pulse Oximetry 92 L 90 L 07/05/18 21:00 07/05/18 22:00 07/05/18 23:00 Temperature Pulse Rate 63 64 64 Respiratory Rate 24 27 H 24 Blood Pressure 129/69 128/60 139/76 Pulse Oximetry 87 L 72 L 100 07/05/18 23:13 07/06/18 00:00 07/06/18 00:17 Temperature 98.3 F Pulse Rate 64 Respiratory Rate 30 H Blood Pressure 149/63 H Pulse Oximetry 96 93 L 96 07/06/18 04:19 Temperature Pulse Rate Respiratory Rate 18 Blood Pressure Pulse Oximetry 100 Intake & Output 07/05/18 07/05/18 07/06/18 06:59 18:59 06:59 Intake Total 330 / 330 240 / 240 150 / 150 Output Total 200 / 200 Balance 330 / 330 40 / 40 150 / 150 Weight 82 kg Intake: IV 210 / 210 240 / 240 150 / 150 Sodium Bicarbonate 8.4% Inj 50 50 / 50 ML @ 0 mls/hr .ROUTE .[facility] Rx#:[id number] Flexbumin 25% Inj 100 ML @ 60 110 / 110 190 / 190 100 / 100 mls/hr IV.SIG Q8H [facility] Rx#: [id number] Levaquin 250 mg Premix Inj 250 50 / 50 mg In 50 ml @ 50 mls/hr IV.SIG Q24H [facility] Rx#:[id number] Flagyl 500 MG Inj 100 ML @ 100 100 / 100 mls/hr IV.SIG Q8H [facility] Rx#: [id number] Oral 120 / 120 Output: Urine 200 / 200 Other: # Incontinent Voids 1 Date of Last Bowel Movement 07/04/18 07/05/18 07/05/18 # Bowel Movements 2 # Incontinent Bowel Movements 0 - Constitutional no acute distress - Routine HEENT Exam Head: Present: normocephalic, atraumatic Eye: Present: EOMI, PERRL ENT: Present: mucous membranes moist - Routine Neck Exam Present: supple, full ROM. Absent: JVD Comments: Bandage from tips in right neck ecchymoses - Routine Respiratory Exam Present: patient mechanically ventilated, crackles, distant breath sounds, diminished air movement - Routine Cardiovascular Exam Present: RRR, S1, S2. Absent: murmur - Routine Abdominal Exam Present: soft, normoactive bowel sounds - Routine Exam Patient deferred: external exam, groin exam, perineal exam - Routine Skin Exam Present: intact, dry. Absent: cyanosis, erythema - Routine Neurological Exam Present: CN II-XII intact. Absent: alert, oriented X3 - Detailed Neurological Exam: Coma Scale Eye Opening: None Verbal Response: Sounds Motor Response: Localizing [place] Coma Scale Total: 8 - Routine Psychiatric Exam Present: unable to assess Septic Shock Reassessment Septic shock perfusion: reassessment completed Assessment and Plan - Assessment and Plan Plan: Neuro/Psych: Acute encephalopathy likely secondary to CO2 retention Currently on propofol/fentanyl drips for sedation/analgesia while intubated Goal of RA SS -1 Daily sedation vacation Check ammonia level now. CT brain 06/25 revealed no acute intracranial findings CV: Essential hypertension Currently on nadolol 20 mg daily, furosemide 20 mg IV twice daily and midodrine 10 mg 3 times daily We will check CPK/troponin, EKG stat We will start on normal saline at 84 cc an hour Echocardiogram -EF 55-60%. Normal LV systolic function. Trace mitral valve regurgitation. Mitral annular calcification is present. Cannot rule out a small mobile echodensity on the left ventricular side of the anterior leaflet towards the left ventricular outflow tract in parasternal views. Clinical correlation recommended There is trace tricuspid valve regurgitation. The estimated pulmonary arterial pressure is 38 mmHg. Resp: Acute respiratory failure Right pleural effusion status post thoracentesis 06/25 -1200 cc PRVC ventilation Head of bed at 30 degrees Ventilator bundle Albuterol/ipratropium aerosols every 4 hours with albuterol every 2 hours as needed dyspnea Follow postintubation chest x-ray and ABG GI: Portal hypertensive gastropathy LA class B esophagitis Distal esophageal ulcer Ascites -paracentesis 5700 cc 06/25. 5900 cc 06/28 Status post TIPS 12/14 for possible hepatorenal syndrome CT abdomen/pelvis 06/25 revealed cirrhotic type liver. Left-sided hydronephrosis. Moderate ascites per EGD 06/28 revealed LA class B esophagitis. 7 mm distal esophageal ulcer. Portal hypertensive gastropathy. H. pylori negative. Recommended furosemide, Aldactone and Midodrine. These have been started Pantoprazole 40 mg IV daily. On octreotide 50 mcg IV every 8 hours for portal hypertension gastropathy Actually being followed by GI. Negative CA-19-9, alpha-fetoprotein, beta-hCG. Negative hepatitis panel : Madsen catheter be placed for accurate I's and O's in a critical patient Endo: Diabetes mellitus Hypothyroidism Gout Sliding scale insulin Accu-Cheks to maintain euglycemia/low every 6 hours aspart insulin Holding glipizide 5 mg daily/home medication Patient is on levothyroxine 300 mcg daily. Check TSH Patient is on allopurinol at home. Restarted 100 mg daily/renally dosed Renal: Acute kidney injury Monitor urine output Accurate I's and O's Avoid nephrotoxic medication No hydronephrosis on CT abdomen/pelvis on admission Nephrology is actively following. Follow BMP this a.m. Check urine eosinophils. Heme: CLL [id number] score 0 Leukocytosis Normocytic anemia Followed by Dr. Flores/oncology Follow-up on coags, CBC this a.m. Currently no indication for transfusion of blood products at this time. ID: Followed by infectious disease. Currently levofloxacin and metronidazole Peritoneal and pleural fluid 06/25 no growth today. Check blood cultures x2, sputum, UA and influenza a and B now FEN: Replace electrolytes as clinically indicated Currently normal saline 84 cc an hour MSK: Elevated BMI Weight loss encouraged PT evaluate and treat Access-utilize peripheral IV. Central line if indicated Prophylaxis -GI -pantoprazole -DVT -SCDs/heparin subcu Consult 35 minutes critical care time Code Status: Full code Discussed Condition With: Dre. Patient unresponsive time intubation. Care plan discussed and all questions answered is unavailable.
[2018-07-06 04:40] LABS: Baso # (Auto) 0.1 th/mm3 (0.0-0.2); Baso % (Auto) 0.2 % (0.0-2.0); Eos # (Auto) 0.3 th/mm3 (0.0-0.4); Eos % (Auto) 0.8 % (0.0-4.0); Hematocrit 26.6 % (35.0-46.0); Hemoglobin 8.6 gm/dL (11.6-15.3); Lymph # (Auto) 29.7 th/mm3 (1.0-4.8); Lymph % (Auto) 69.5 % (9.0-44.0); Mean Corpuscular HGB Conc 32.3 % (32.0-36.0); Mean Corpuscular Hemoglobin 30.4 pg (27.0-34.0); Mean Corpuscular Volume 93.9 fL (80.0-100.0); Mean Platelet Volume 8.6 fL (7.0-11.0); Mono % (Auto) 2.4 % (0.0-8.0); Neut # (Auto) 11.5 th/mm3 (1.8-7.7); Neut % (Auto) 27.1 % (16.0-70.0); Platelet Count 158 th/mm3 (150-450); Red Blood Count 2.84 mil/mm3 (4.00-5.30); Red Cell Distribution Width 16.7 % (11.6-17.2); White Blood Count 42.7 th/mm3 (4.0-11.0)
[2018-07-06] MEDS ORDERED: Dextrose 50% in Water 50 ML Vial IV.PUSH PRN (04:44)
[2018-07-06 04:49] LABS: Activated Partial Thrombo Time 52.7 sec (23.4-31.7); Prothrombin Time 20.7 sec (9.8-11.6)
[2018-07-06 04:55] LABS: Albumin 5.1 g/dL (3.4-5.0); Calcium 8.9 mg/dL (8.5-10.1); Magnesium 2.1 mg/dL (1.5-2.5); Phosphorus 5.5 mg/dL (2.5-4.9); Potassium 5.1 meq/L (3.5-5.1); Uric Acid 11.7 mg/dl (2.6-6.0)
[2018-07-06 05:04] LABS: Thyroid Stimulating Hormone 15.8 uIU/mL (0.358-3.740); Total Protein 6.7 g/dL (6.4-8.2); Troponin I 0.06 ng/mL (0.02-0.05)
[2018-07-06 05:20] LABS: ABG Base Excess -6.4 mmol/L (-2-2); ABG PCO2 36 mmHg (38-42); ABG PO2 119 mmHG (61-120)
[2018-07-06] MEDS: Artificial Tears Opth Drops 15 ML Bottle EACH EYE SCH ×3 (05:36→20:04)
--- NOTE | 2018-07-06 05:36 | XR ---
EXAM DATE: 07/06/2018 5:25 AM EST AGE/SEX: 72 years / Female INDICATIONS: Intubation. CLINICAL DATA: This is the patient's subsequent encounter. Patient reports that signs and symptoms h ave been present for 4 - 6 days and indicates a pain score of Nonresponsive. MEDICAL/SURGICAL HISTORY: . Asthma. Diabetes. Hypertension. Leukemia. Gout. . Thyroidectomy. COMPARISON: [facility] – [place], CHEST 1V SINGLE AP, 07/06/2018. . FINDINGS: A single AP view of the chest demonstrates slight improvement of bilateral patchy airspace disease. C ardiomegaly. Endotracheal tube within the right mainstem bronchus and should be tracked retracted at least 3 cm. Cardiomegaly.. The cardiomediastinal contours are unremarkable. Osseous structures are intact. CONCLUSION: 1. Endotracheal tube in the right mainstem bronchus. This should be retracted at least 3 cm. 2. Patchy bilateral airspace disease, improved. Electronically signed by: Kar Jackson MD Board Certified Radiologist 07/06/2018 5:35 AM EST
[2018-07-06] MEDS: Octreotide Inj 50 MCG/ML Vial IV.PUSH SCH ×3 (05:42→21:04)
[2018-07-06] MEDS: Sod Chloride 0.9% Inj 1,000 ML IV.CONT SCH ×2 (05:42→17:03)
[2018-07-06] MEDS: Pantoprazole Inj 40 MG Vial IV.PUSH SCH (05:42)
[2018-07-06] MEDS: Insulin NovoLOG Aspart Correctional Sugar Inj SQ SCH ×4 (05:45→17:05)
[2018-07-06] MEDS: Levothyroxine 150 MCG Tablet PO SCH ×2 (06:06→12:57)
--- NOTE | 2018-07-06 06:18 | XR ---
EXAM DATE: 07/06/2018 5:48 AM EST AGE/SEX: 72 years / Female INDICATIONS: ET tube adjustment. CLINICAL DATA: This is the patient's subsequent encounter. Patient reports that signs and symptoms h ave been present for 4 - 6 days and indicates a pain score of Nonresponsive. MEDICAL/SURGICAL HISTORY: . Asthma. Diabetes. Hypertension. Leukemia. Gout. . Thyroidectomy. COMPARISON: [facility] – [place], CHEST 1V SINGLE AP, 07/06/2018. . FINDINGS: A single AP view of the chest demonstrates bibasilar consolidation. Cardiomegaly. Endotracheal tube w ith tip at the orifice of the right mainstem bronchus. The cardiomediastinal contours are unremarkabl e. Osseous structures are intact. CONCLUSION: Endotracheal tube with tip at the orifice of the right mainstem bronchus. This should be retracted at least 2 cm. Electronically signed by: Kar Jackson MD Board Certified Radiologist 07/06/2018 6:16 AM EST
[2018-07-06 06:48] LABS: Eosinophils 3 % (0-4); Lymphocytes 81 % (9-44); Monocytes 1 % (0-8); Smudge Cells Present
[2018-07-06 06:49] LABS: Ovalocytes 1+; Platelet Morphology Normal (Normal)
[2018-07-06] MEDS: Chlorhexidine 0.12% Oral Kit 15 ML UDC OROPHARYNG SCH ×2 (08:40→19:33)
--- NOTE | 2018-07-06 10:05 | P.PNNP ---
Subjective Interval history: Patient was seen, orally intubated, on sedation, unresponsive. Patient's renal function continues to decline. Patient is oliguric. Patient has been hypotensive. 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 From previous reports from patient, not a candidate for liver transplant due to comorbidities. Patient is not a candidate for dialysis. Discussed this with Dr. Sylvester. <Des Arora - Last Filed: 07/06/18 09:52> Physical Exam Vital signs: Vital Signs 07/05/18 10:00 07/05/18 10:02 07/05/18 11:00 Temperature Pulse Rate 62 62 57 L Respiratory Rate 24 18 18 Blood Pressure 142/67 H Pulse Oximetry 86 L 87 L 94 L 07/05/18 11:01 07/05/18 12:00 07/05/18 13:00 Temperature 97.8 F Pulse Rate 56 L 61 61 Respiratory Rate 18 25 H 16 Blood Pressure 120/65 125/75 130/58 L Pulse Oximetry 93 L 92 L 91 L 07/05/18 13:18 07/05/18 14:00 07/05/18 14:01 Temperature Pulse Rate 61 63 64 Respiratory Rate 21 31 H 34 H Blood Pressure 117/60 Pulse Oximetry 79 L 80 L 07/05/18 15:00 07/05/18 16:00 07/05/18 17:00 Temperature 97.6 F Pulse Rate 62 58 L 61 Respiratory Rate 22 15 22 Blood Pressure 121/64 130/59 L 144/67 H Pulse Oximetry 91 L 94 L 96 07/05/18 18:00 07/05/18 19:00 07/05/18 19:56 Temperature Pulse Rate 61 63 65 Respiratory Rate 25 H 35 H 22 Blood Pressure 150/73 H 150/63 H Pulse Oximetry 94 L 92 L 07/05/18 19:59 07/05/18 20:00 07/05/18 21:00 Temperature 97.9 F Pulse Rate 65 63 Respiratory Rate 26 H 24 Blood Pressure 146/69 H 129/69 Pulse Oximetry 92 L 90 L 87 L 07/05/18 22:00 07/05/18 23:00 07/05/18 23:13 Temperature Pulse Rate 64 64 Respiratory Rate 27 H 24 Blood Pressure 128/60 139/76 Pulse Oximetry 72 L 100 96 07/06/18 00:00 07/06/18 00:17 07/06/18 02:02 Temperature 98.3 F Pulse Rate 64 71 Respiratory Rate 30 H 40 H Blood Pressure 149/63 H Pulse Oximetry 93 L 96 91 L 07/06/18 03:00 07/06/18 04:00 07/06/18 04:03 Temperature 97.6 F Pulse Rate 58 L 62 63 Respiratory Rate 13 25 H 15 Blood Pressure 103/55 L 146/76 H Pulse Oximetry 94 L 94 L 95 07/06/18 04:04 07/06/18 04:06 07/06/18 04:09 Temperature Pulse Rate 63 60 56 L Respiratory Rate 20 43 H 39 H Blood Pressure 126/65 139/64 107/53 L Pulse Oximetry 94 L 94 L 97 07/06/18 04:10 07/06/18 04:13 07/06/18 04:15 Temperature Pulse Rate 55 L 55 L 55 L Respiratory Rate 18 21 25 H Blood Pressure 75/36 L 58/38 L 80/44 L Pulse Oximetry 96 98 98 07/06/18 04:16 07/06/18 04:19 07/06/18 04:20 Temperature Pulse Rate 54 L 57 L 58 L Respiratory Rate 23 26 H 18 Blood Pressure 84/48 L 93/55 L 101/52 L Pulse Oximetry 98 100 99 07/06/18 04:23 07/06/18 04:24 07/06/18 04:31 Temperature Pulse Rate 59 L 59 L 60 Respiratory Rate 18 18 15 Blood Pressure 88/53 L 103/50 L 104/53 L Pulse Oximetry 100 100 99 07/06/18 04:40 07/06/18 04:50 07/06/18 04:56 Temperature Pulse Rate 59 L 61 60 Respiratory Rate 12 34 H 20 Blood Pressure 103/55 L 87/50 L 125/60 Pulse Oximetry 99 100 98 07/06/18 05:00 07/06/18 05:20 07/06/18 05:26 Temperature Pulse Rate 58 L 54 L 54 L Respiratory Rate 18 18 18 Blood Pressure 118/55 L 87/47 L 103/51 L Pulse Oximetry 100 80 L 100 07/06/18 05:30 07/06/18 05:41 07/06/18 05:50 Temperature Pulse Rate 53 L 53 L 53 L Respiratory Rate 18 11 L 15 Blood Pressure 104/55 L 106/55 L 96/50 L Pulse Oximetry 100 100 98 07/06/18 06:00 07/06/18 07:51 Temperature Pulse Rate 53 L 54 L Respiratory Rate 18 18 Blood Pressure 93/54 L Pulse Oximetry 100 100 Intake & Output 07/05/18 07/06/18 07/06/18 18:59 06:59 18:59 Intake Total 240 / 240 250 / 250 Output Total 200 / 200 Balance 40 / 40 250 / 250 Weight 88 kg Intake: IV 240 / 240 250 / 250 Sodium Bicarbonate 8.4% Inj 50 50 / 50 ML @ 0 mls/hr .ROUTE .[facility] Rx#:[id number] Flexbumin 25% Inj 100 ML @ 60 190 / 190 200 / 200 mls/hr IV.SIG Q8H [facility] Rx#: [id number] Levaquin 250 mg Premix Inj 250 50 / 50 mg In 50 ml @ 50 mls/hr IV.SIG Q24H [facility] Rx#:[id number] Oral 0 / 0 Output: Urine 200 / 200 Other: # Incontinent Voids 1 Date of Last Bowel Movement 07/05/18 07/05/18 # Bowel Movements 2 0 Narrative: GENERAL: Chronically ill appearing. SKIN: Pale. CARDIOVASCULAR: Regular rate and rhythm. RESPIRATORY: Decreased breath sounds. Orally intubated on 60% FiO2. ABDOMEN: Distended. NEUROLOGICAL: On sedation, unresponsive. PSYCHIATRIC: Unable to access. <Des Arora - Last Filed: 07/06/18 09:52> Vital signs: Vital Signs 07/06/18 22:00 07/06/18 22:01 07/06/18 22:36 Temperature Pulse Rate 49 L 49 L 48 L Respiratory Rate 18 23 19 Blood Pressure 114/75 129/60 Pulse Oximetry 98 98 99 07/06/18 23:00 07/06/18 23:06 07/06/18 23:30 Temperature Pulse Rate 48 L 48 L 48 L Respiratory Rate 19 18 18 Blood Pressure 120/59 L 115/55 L Pulse Oximetry 99 99 99 07/06/18 23:45 07/07/18 00:00 07/07/18 00:31 Temperature 98.4 F Pulse Rate 47 L 47 L 48 L Respiratory Rate 18 19 22 Blood Pressure 128/60 106/52 L Pulse Oximetry 99 100 91 L 07/07/18 01:00 07/07/18 01:01 07/07/18 01:30 Temperature Pulse Rate 47 L 47 L 46 L Respiratory Rate 18 18 18 Blood Pressure 126/60 129/58 L Pulse Oximetry 97 98 98 07/07/18 02:00 07/07/18 02:02 07/07/18 02:34 Temperature Pulse Rate 67 191 H 46 L Respiratory Rate 20 24 18 Blood Pressure 105/60 110/58 L Pulse Oximetry 99 94 L 95 07/07/18 03:00 07/07/18 03:47 07/07/18 04:00 Temperature 98.1 F Pulse Rate 45 L 53 L 74 Respiratory Rate 18 18 18 Blood Pressure 114/54 L 121/56 L Pulse Oximetry 98 98 91 L 07/07/18 07:51 07/07/18 07:52 07/07/18 08:00 Temperature 98.3 F Pulse Rate 80 44 L Respiratory Rate 18 18 18 Blood Pressure 112/58 L Pulse Oximetry 92 L 95 07/07/18 11:47 07/07/18 11:48 07/07/18 12:00 Temperature 98.2 F Pulse Rate 70 44 L Respiratory Rate 18 18 18 Blood Pressure 126/61 Pulse Oximetry 97 97 07/07/18 15:50 07/07/18 15:51 07/07/18 16:00 Temperature 98.9 F Pulse Rate 50 L 42 L Respiratory Rate 18 18 18 Blood Pressure 88/52 L Pulse Oximetry 98 99 07/07/18 19:55 Temperature Pulse Rate 42 L Respiratory Rate 18 Blood Pressure Pulse Oximetry 97 Intake & Output 07/07/18 07/07/18 07/08/18 06:59 18:59 06:59 Intake Total 1200 / 1200 1350 / 1350 100 / 100 Output Total 400 / 400 950 / 950 Balance 800 / 800 400 / 400 100 / 100 Weight 85 kg Intake: IV 1200 / 1200 1350 / 1350 100 / 100 NS Inj 1,000 ML @ 84 mls/hr IV. 1000 / 1000 1000 / 1000 CONT .[id number] [facility] Rx#:[id number] Flexbumin 25% Inj 100 ML @ 60 200 / 200 100 / 100 100 / 100 mls/hr IV.SIG Q8H [facility] Rx#: [id number] 10 mcg/mL Premix Drip 250 / 250 2,500 mcg In 250 ml @ 50 MCG/HR 5 mls/hr IV.SIG TITRATE PRN Rx #:[id number] Oral 0 / 0 0 / 0 Output: Urine Amount (Catheter) 550 / 550 Straight 550 / 550 Chest Tube Drainage 400 / 400 400 / 400 #1 Right Mid-Axillary Chest 400 / 400 400 / 400 Other: # Incontinent Voids 1 Date of Last Bowel Movement 07/05/18 07/05/18 # Bowel Movements 0 0 <Papi Busby - Last Filed: 07/07/18 21:59> Assessment and Plan - Assessment (1) Acute on chronic kidney failure Code(s): N17.9 - Acute kidney failure, unspecified; N18.9 - Chronic kidney disease, unspecified Status: Acute Plan: Patient has chronic kidney disease and possibly has ATN. Patient's renal function continues to decline. Patient is oliguric. Patient has been hypotensive. 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 Patient is not a candidate for dialysis, too unstable. Discussed this with Dr. Sylvester. Monitor urine output. Poor prognosis, suggest Hospice. (2) Diabetes Code(s): E11.9 - Type 2 diabetes mellitus without complications Status: Acute Plan: Insulin coverage to maintain glucose levels between 140 and 180. (3) Abdominal distension Code(s): R14.0 - Abdominal distension (gaseous) Status: Acute Plan: s/p paracentesis x2. - Plan S/P TIPS procedure 07/01/18 <Des Arora - Last Filed: 07/06/18 09:52> - Assessment (1) Acute on chronic kidney failure Code(s): N17.9 - Acute kidney failure, unspecified; N18.9 - Chronic kidney disease, unspecified Status: Acute (2) Diabetes Code(s): E11.9 - Type 2 diabetes mellitus without complications Status: Acute (3) Abdominal distension Code(s): R14.0 - Abdominal distension (gaseous) Status: Acute - Attending Attestation patient was seen and examined. Very poor prognosis. May have HRS. Dialysis is not recommended. <Papi Busby - Last Filed: 07/07/18 21:59>
--- NOTE | 2018-07-06 12:03 | XR ---
EXAM DATE: 07/06/2018 11:56 AM EST AGE/SEX: 72 years / Female INDICATIONS: Dobhoff tube placement. CLINICAL DATA: This is the patient's subsequent encounter. Patient reports that signs and symptoms h ave been present for 2 weeks and indicates a pain score of Nonresponsive. MEDICAL/SURGICAL HISTORY: . Asthma. Diabetes. Hypertension. Leukemia. Gout. . Thyroidectomy. COMPARISON: No prior exams available for comparison. FINDINGS: The Dobbhoff tube tip is noted within the expected region of the distal stomach. Degenerative change s are noted throughout the thoracolumbar spine. CONCLUSION: Dobbhoff tube tip is noted within the expected region of the distal stomach. Electronically signed by: Jasiel Ordoñez MD Board Certified Radiologist 07/06/2018 12:02 PM EST
[2018-07-06] MEDS: Allopurinol 100 MG Tablet PO SCH (12:57)
[2018-07-06] MEDS: Oral Hygiene Kit OROPHARYNG SCH ×2 (12:58→16:10)
[2018-07-06] MEDS: Nadolol 20 MG Tablet PO SCH (12:58)
--- NOTE | 2018-07-06 13:00 | P.PNPAL ---
Reason for Visit Reason for visit: a. To assist with evaluation and management of symptoms including: Shortness of breath, debility b. To assist medical decision maker(s) with: better understanding of current medical conditions; weighing benefits/burdens of medical treatment options; making medical treatment decisions. Subjective Subjective/Interval History: Follow-up medically necessary for symptom management. Patient seen and examined in MICU. Apparently patient became more confused overnight and she received 2 doses of lorazepam. It is also noted in EMR that patient refused BiPAP for times at night. ABG revealed pH 7.25, PCO2 47, PO2 75, HCO3 20, base excess -5.7, O2 saturation 90% on O2 15 L via nonrebreather. Chest x-ray prior to intubation revealed diffuse bilateral airspace disease with stent prior study and probable small pleural effusions. Critical care physician Dr. Hernandez was consulted 07/06/18 to evaluate and manage patient with shortness of breath, tachypneic and unresponsive. She was intubated early this morning around 0400 hrs. on 07/06/18 after she was noted to be tachypneic, unresponsive and was desaturating. Patient is currently on FiO2 50% with O2 sats in the mid to high 90s and on fentanyl infusion at 50 mcg/h. Bedside RN stated that she has been trying to contact patient spouse via phone to obtain consent for chest tube placement with no success. Laboratory workup 07/06/18 showing worsening renal function BUN/creatinine 91/5.63 Prior to intubation, patient was evaluated by psychiatry who documented that patient was logical, coherent and relevant. Telephone call placed to patient spouse with no response, left a voice message with palliative care contact information. Case discussed with bedside RN . Family/Friend Interactions: See interval note. . Advance Directives Living Will: Never completed Health Care Surrogate: Copy in medical record Durable Power of Api Developer: Never completed Advance Directives Date on File: 06/29/18 Health Care Surrogate Name and Number: HCS: Clarence Sylvester [phone] Alt: Bharat Willard Objective Vital Signs: Vital Signs 07/05/18 13:00 07/05/18 13:18 07/05/18 14:00 Temperature Pulse Rate 61 61 63 Respiratory Rate 16 21 31 H Blood Pressure 130/58 L Pulse Oximetry 91 L 79 L 07/05/18 14:01 07/05/18 15:00 07/05/18 16:00 Temperature 97.6 F Pulse Rate 64 62 58 L Respiratory Rate 34 H 22 15 Blood Pressure 117/60 121/64 130/59 L Pulse Oximetry 80 L 91 L 94 L 07/05/18 17:00 07/05/18 18:00 07/05/18 19:00 Temperature Pulse Rate 61 61 63 Respiratory Rate 22 25 H 35 H Blood Pressure 144/67 H 150/73 H 150/63 H Pulse Oximetry 96 94 L 92 L 07/05/18 19:56 07/05/18 19:59 07/05/18 20:00 Temperature 97.9 F Pulse Rate 65 65 Respiratory Rate 22 26 H Blood Pressure 146/69 H Pulse Oximetry 92 L 90 L 07/05/18 21:00 07/05/18 22:00 07/05/18 23:00 Temperature Pulse Rate 63 64 64 Respiratory Rate 24 27 H 24 Blood Pressure 129/69 128/60 139/76 Pulse Oximetry 87 L 72 L 100 07/05/18 23:13 07/06/18 00:00 07/06/18 00:17 Temperature 98.3 F Pulse Rate 64 Respiratory Rate 30 H Blood Pressure 149/63 H Pulse Oximetry 96 93 L 96 07/06/18 02:02 07/06/18 03:00 07/06/18 04:00 Temperature 97.6 F Pulse Rate 71 58 L 62 Respiratory Rate 40 H 13 25 H Blood Pressure 103/55 L Pulse Oximetry 91 L 94 L 94 L 07/06/18 04:03 07/06/18 04:04 07/06/18 04:06 Temperature Pulse Rate 63 63 60 Respiratory Rate 15 20 43 H Blood Pressure 146/76 H 126/65 139/64 Pulse Oximetry 95 94 L 94 L 07/06/18 04:09 07/06/18 04:10 07/06/18 04:13 Temperature Pulse Rate 56 L 55 L 55 L Respiratory Rate 39 H 18 21 Blood Pressure 107/53 L 75/36 L 58/38 L Pulse Oximetry 97 96 98 07/06/18 04:15 07/06/18 04:16 07/06/18 04:19 Temperature Pulse Rate 55 L 54 L 57 L Respiratory Rate 25 H 23 26 H Blood Pressure 80/44 L 84/48 L 93/55 L Pulse Oximetry 98 98 100 07/06/18 04:20 07/06/18 04:23 07/06/18 04:24 Temperature Pulse Rate 58 L 59 L 59 L Respiratory Rate 18 18 18 Blood Pressure 101/52 L 88/53 L 103/50 L Pulse Oximetry 99 100 100 07/06/18 04:31 07/06/18 04:40 07/06/18 04:50 Temperature Pulse Rate 60 59 L 61 Respiratory Rate 15 12 34 H Blood Pressure 104/53 L 103/55 L 87/50 L Pulse Oximetry 99 99 100 07/06/18 04:56 07/06/18 05:00 07/06/18 05:20 Temperature Pulse Rate 60 58 L 54 L Respiratory Rate 20 18 18 Blood Pressure 125/60 118/55 L 87/47 L Pulse Oximetry 98 100 80 L 07/06/18 05:26 07/06/18 05:30 07/06/18 05:41 Temperature Pulse Rate 54 L 53 L 53 L Respiratory Rate 18 18 11 L Blood Pressure 103/51 L 104/55 L 106/55 L Pulse Oximetry 100 100 100 07/06/18 05:50 07/06/18 06:00 07/06/18 06:10 Temperature Pulse Rate 53 L 53 L 54 L Respiratory Rate 15 18 15 Blood Pressure 96/50 L 93/54 L 95/50 L Pulse Oximetry 98 100 97 07/06/18 06:20 07/06/18 06:30 07/06/18 06:40 Temperature Pulse Rate 54 L 54 L 53 L Respiratory Rate 17 8 L 12 Blood Pressure 96/50 L 90/55 L 88/49 L Pulse Oximetry 98 99 99 07/06/18 06:47 07/06/18 06:51 07/06/18 07:00 Temperature Pulse Rate 56 L 54 L 54 L Respiratory Rate 20 16 14 Blood Pressure 91/54 L 104/51 L 106/53 L Pulse Oximetry 99 98 99 07/06/18 07:11 07/06/18 07:21 07/06/18 07:30 Temperature Pulse Rate 55 L 55 L 55 L Respiratory Rate 31 H 22 20 Blood Pressure 132/60 105/57 L 108/59 L Pulse Oximetry 99 100 100 07/06/18 07:40 07/06/18 07:50 07/06/18 07:51 Temperature Pulse Rate 55 L 54 L 54 L Respiratory Rate 20 18 18 Blood Pressure 113/58 L 108/58 L Pulse Oximetry 99 100 100 07/06/18 08:00 07/06/18 08:10 07/06/18 08:20 Temperature 98.0 F Pulse Rate 54 L 54 L 54 L Respiratory Rate 17 18 18 Blood Pressure 112/62 111/53 L 116/58 L Pulse Oximetry 100 100 100 07/06/18 08:30 07/06/18 08:40 07/06/18 08:50 Temperature Pulse Rate 53 L 54 L 54 L Respiratory Rate 18 19 18 Blood Pressure 117/55 L 104/57 L 109/59 L Pulse Oximetry 100 100 100 07/06/18 09:00 07/06/18 09:10 07/06/18 09:20 Temperature Pulse Rate 54 L 54 L 54 L Respiratory Rate 18 18 19 Blood Pressure 109/55 L 109/55 L 105/56 L Pulse Oximetry 100 100 100 07/06/18 09:30 07/06/18 09:40 07/06/18 09:50 Temperature Pulse Rate 53 L 54 L 54 L Respiratory Rate 18 18 18 Blood Pressure 116/58 L 118/58 L 117/58 L Pulse Oximetry 100 100 100 07/06/18 10:00 07/06/18 10:10 07/06/18 10:20 Temperature Pulse Rate 55 L 54 L 54 L Respiratory Rate 25 H 18 18 Blood Pressure 122/57 L 113/56 L 111/57 L Pulse Oximetry 100 100 100 07/06/18 10:31 07/06/18 10:50 07/06/18 11:00 Temperature Pulse Rate 56 L 54 L 53 L Respiratory Rate 19 18 18 Blood Pressure 94/52 L 115/59 L 126/57 L Pulse Oximetry 96 98 100 07/06/18 11:10 07/06/18 11:20 07/06/18 11:30 Temperature Pulse Rate 53 L 54 L 52 L Respiratory Rate 18 18 18 Blood Pressure 118/59 L 105/52 L 111/58 L Pulse Oximetry 100 92 L 99 07/06/18 11:35 07/06/18 11:40 07/06/18 11:50 Temperature Pulse Rate 53 L 54 L 53 L Respiratory Rate 18 18 18 Blood Pressure 114/57 L 113/54 L Pulse Oximetry 98 100 95 07/06/18 12:00 07/06/18 12:10 07/06/18 12:20 Temperature 98.4 F Pulse Rate 53 L 53 L 53 L Respiratory Rate 18 18 Blood Pressure 110/57 L 118/55 L 112/58 L Pulse Oximetry 96 98 97 Intake & Output 07/05/18 07/06/18 07/06/18 18:59 06:59 18:59 Intake Total 240 / 240 250 / 250 Output Total 200 / 200 Balance 40 / 40 250 / 250 Weight 88 kg Intake: IV 240 / 240 250 / 250 Sodium Bicarbonate 8.4% Inj 50 50 / 50 ML @ 0 mls/hr .[facility] .[id number] Flexbumin 25% Inj 100 ML @ 60 190 / 190 200 / 200 mls/hr IV.SIG Q8H [facility] Rx#: [id number] Levaquin 250 mg Premix Inj 250 50 / 50 mg In 50 ml @ 50 mls/hr IV.SIG Q24H [facility] Rx#:[id number] Oral 0 / 0 Output: Urine 200 / 200 Other: # Incontinent Voids 1 Date of Last Bowel Movement 07/05/18 07/05/18 07/05/18 # Bowel Movements 2 0 Physical Exam: CONSTITUTIONAL/GENERAL: This is a chronically ill looking elderly patient, in no acute distress TUBES/LINES/DRAINS: PIV, ETT, Madsen catheter, Dobbhoff catheter SKIN: Pale. Slightly jaundiced. Ecchymoses on upper extremities. No wounds seen anteriorly. Skin temperature appropriate. Not diaphoretic. HEAD: Atraumatic. Normocephalic. EYES: Pupils round, slight reaction to light. No eye opening. No scleral icterus. No injection or drainage. Fundi not examined. ENT: Nose without bleeding or purulent drainage. Edentulous. ETT NECK: Trachea midline. Supple, nontender. CARDIOVASCULAR: S1, S2 normal. No JVD. Peripheral pulses symmetric. RESPIRATORY/CHEST: Symmetric, mildly labored. Diminished breath sounds no wheezes, rales, or rhonchi. GASTROINTESTINAL: Abdomen soft, non-tender, distended. No guarding. Hypoactive bowel sounds. GENITOURINARY: Without palpable bladder distension. MUSCULOSKELETAL: Extremities without clubbing, cyanosis, or edema. No joint tenderness or effusion noted. No calf tenderness. No mottling or clubbing. LYMPHATICS: Did not assess NEUROLOGICAL: Intubated, sedated. PSYCHIATRIC: Unable to assess Diagnostic Tests Laboratory: Laboratory Results - last 72 hr 07/03/18 07/03/18 07/03/18 11:30 11:30 16:39 WBC RBC Hgb Hct MCV MCH MCHC RDW Plt Count MPV Prelim Diff (Auto) Neut % (Auto) Lymph % (Auto) [place] % (Auto) Eos % (Auto) Baso % (Auto) Neut # (Auto) Lymph # (Auto) [place] # (Auto) Eos # (Auto) Baso # (Auto) WBC Differential Manual diff final Seg Neuts % (Manual) 34 Band Neuts % (Manual) 1 Lymphocytes % (Manual) 64 H Monocytes % (Manual) 1 Eosinophils % (Manual) Abs Neuts (Manual) 21.1 H Nucleated RBCs/100 WBC Differential Comment Smudge Cells Present H Platelet Estimate Normal Platelet Morphology Normal RBC Morphology Normal Ovalocytes [place] Cells PT INR APTT Fibrinogen Puncture Site Patient Temperature O2 Saturation ABG pH ABG pCO2 ABG pO2 ABG HCO3 ABG O2 Content ABG Base Excess ABG Methemoglobin [place] Test Hemoglobin Carboxyhemoglobin O2 Delivery Device Liter Flow Vent Setting Inspired O2 Critical Value Sodium 138 Potassium 5.6 H Chloride 106 Carbon Dioxide 21.5 Anion Gap 11 BUN 70 H Creatinine 4.31 H Estimated GFR 10 L POC Glucose 209 H Random Glucose 195 H Lactic Acid Uric Acid Calcium 8.8 D Phosphorus Magnesium Total Bilirubin Direct Bilirubin Indirect Bilirubin AST ALT Alkaline Phosphatase Ammonia Total Creatine Kinase Troponin I Total Protein Albumin Amylase Lipase TSH 07/03/18 07/04/18 07/04/18 19:46 04:12 04:12 WBC 45.9 H RBC 3.07 L Hgb 9.2 L Hct 28.8 L MCV 94.0 MCH 30.1 MCHC 32.0 RDW 16.4 Plt Count 195 D MPV 8.6 Prelim Diff (Auto) Slide review pending Neut % (Auto) 32.7 Lymph % (Auto) 64.4 H [place] % (Auto) 2.7 Eos % (Auto) 0.1 Baso % (Auto) 0.1 Neut # (Auto) 15.0 H Lymph # (Auto) 29.5 H [place] # (Auto) 1.3 H Eos # (Auto) 0.0 Baso # (Auto) 0.1 WBC Differential Manual diff final Seg Neuts % (Manual) 25 Band Neuts % (Manual) 1 Lymphocytes % (Manual) 74 H Monocytes % (Manual) Eosinophils % (Manual) Abs Neuts (Manual) 11.9 H Nucleated RBCs/100 WBC Differential Comment . Smudge Cells Present H Platelet Estimate Normal Platelet Morphology Normal RBC Morphology Ovalocytes 1+ H Raz Cells 1+ H PT INR APTT Fibrinogen Puncture Site Patient Temperature O2 Saturation ABG pH ABG pCO2 ABG pO2 ABG HCO3 ABG O2 Content ABG Base Excess ABG Methemoglobin [place] Test Hemoglobin Carboxyhemoglobin O2 Delivery Device Liter Flow Vent Setting Inspired O2 Critical Value Sodium 140 Potassium 5.2 H Chloride 108 H Carbon Dioxide 20.5 L Anion Gap 12 BUN 77 H Creatinine 4.59 H Estimated GFR 9 L POC Glucose 162 H Random Glucose 105 Lactic Acid Uric Acid Calcium 8.8 Phosphorus Magnesium Total Bilirubin Direct Bilirubin Indirect Bilirubin AST ALT Alkaline Phosphatase Ammonia Total Creatine Kinase Troponin I Total Protein Albumin Amylase Lipase TSH 07/04/18 07/04/18 07/04/18 05:37 09:02 12:01 WBC RBC Hgb Hct MCV MCH MCHC RDW Plt Count MPV Prelim Diff (Auto) Neut % (Auto) Lymph % (Auto) [place] % (Auto) Eos % (Auto) Baso % (Auto) Neut # (Auto) Lymph # (Auto) [place] # (Auto) Eos # (Auto) Baso # (Auto) WBC Differential Seg Neuts % (Manual) Band Neuts % (Manual) Lymphocytes % (Manual) Monocytes % (Manual) Eosinophils % (Manual) Abs Neuts (Manual) Nucleated RBCs/100 WBC Differential Comment Smudge Cells Platelet Estimate Platelet Morphology RBC Morphology Ovalocytes [place] Cells PT INR APTT Fibrinogen Puncture Site Right radial Patient Temperature 98.6 O2 Saturation 90 ABG pH 7.35 L ABG pCO2 33 L ABG pO2 69 ABG HCO3 18 L ABG O2 Content 11.4 L ABG Base Excess -6.5 L ABG Methemoglobin 1.5 [place] Test Present Hemoglobin 8.9 L Carboxyhemoglobin 1.1 O2 Delivery Device Bipap 12/ 5/55% Liter Flow Vent Setting Inspired O2 55 Critical Value No Sodium Potassium Chloride Carbon Dioxide Anion Gap BUN Creatinine Estimated GFR POC Glucose 133 H 179 H Random Glucose Lactic Acid Uric Acid Calcium Phosphorus Magnesium Total Bilirubin Direct Bilirubin Indirect Bilirubin AST ALT Alkaline Phosphatase Ammonia Total Creatine Kinase Troponin I Total Protein Albumin Amylase Lipase TSH 07/04/18 07/04/18 07/05/18 17:36 23:43 07:37 WBC RBC Hgb Hct MCV MCH MCHC RDW Plt Count MPV Prelim Diff (Auto) Neut % (Auto) Lymph % (Auto) [place] % (Auto) Eos % (Auto) Baso % (Auto) Neut # (Auto) Lymph # (Auto) [place] # (Auto) Eos # (Auto) Baso # (Auto) WBC Differential Seg Neuts % (Manual) Band Neuts % (Manual) Lymphocytes % (Manual) Monocytes % (Manual) Eosinophils % (Manual) Abs Neuts (Manual) Nucleated RBCs/100 WBC Differential Comment Smudge Cells Platelet Estimate Platelet Morphology RBC Morphology Ovalocytes Raz Cells PT INR APTT Fibrinogen Puncture Site Patient Temperature O2 Saturation ABG pH ABG pCO2 ABG pO2 ABG HCO3 ABG O2 Content ABG Base Excess ABG Methemoglobin [place] Test Hemoglobin Carboxyhemoglobin O2 Delivery Device Liter Flow Vent Setting Inspired O2 Critical Value Sodium Potassium Chloride Carbon Dioxide Anion Gap BUN Creatinine Estimated GFR POC Glucose 203 H 176 H 154 H Random Glucose Lactic Acid Uric Acid Calcium Phosphorus Magnesium Total Bilirubin Direct Bilirubin Indirect Bilirubin AST ALT Alkaline Phosphatase Ammonia Total Creatine Kinase Troponin I Total Protein Albumin Amylase Lipase TSH 07/05/18 07/05/18 07/05/18 09:19 09:19 11:58 WBC 63.7 H RBC 3.32 L Hgb 9.9 L Hct 31.3 L MCV 94.4 MCH 30.0 MCHC 31.8 L RDW 17.3 H Plt Count 237 MPV 8.5 Prelim Diff (Auto) Slide review pending Neut % (Auto) 25.4 Lymph % (Auto) 70.3 H [place] % (Auto) 3.0 Eos % (Auto) 1.1 Baso % (Auto) 0.2 Neut # (Auto) 16.2 H Lymph # (Auto) 44.8 H [place] # (Auto) 1.9 H Eos # (Auto) 0.7 H Baso # (Auto) 0.1 WBC Differential Manual diff final Seg Neuts % (Manual) 15 L Band Neuts % (Manual) 1 Lymphocytes % (Manual) 83 H Monocytes % (Manual) Eosinophils % (Manual) 1 Abs Neuts (Manual) 10.2 H Nucleated RBCs/100 WBC 1 H Differential Comment . Smudge Cells Present H Platelet Estimate Normal Platelet Morphology Normal RBC Morphology Ovalocytes Raz Cells PT INR APTT Fibrinogen Puncture Site Patient Temperature O2 Saturation ABG pH ABG pCO2 ABG pO2 ABG HCO3 ABG O2 Content ABG Base Excess ABG Methemoglobin [place] Test Hemoglobin Carboxyhemoglobin O2 Delivery Device Liter Flow Vent Setting Inspired O2 Critical Value Sodium 138 Potassium 5.1 Chloride 106 Carbon Dioxide 20.9 L Anion Gap 11 BUN 87 H Creatinine 5.32 H Estimated GFR 8 L POC Glucose 127 H Random Glucose 160 H Lactic Acid Uric Acid Calcium 9.0 Phosphorus Magnesium Total Bilirubin Direct Bilirubin Indirect Bilirubin AST ALT Alkaline Phosphatase Ammon[place] Total Creatine Kinase Troponin I Total Protein Albumin Amylase Lipase TSH 07/05/18 07/05/18 07/05/18 17:13 20:27 22:58 WBC RBC Hgb Hct MCV MCH MCHC RDW Plt Count MPV Prelim Diff (Auto) Neut % (Auto) Lymph % (Auto) [place] % (Auto) Eos % (Auto) Baso % (Auto) Neut # (Auto) Lymph # (Auto) [place] # (Auto) Eos # (Auto) Baso # (Auto) WBC Differential Seg Neuts % (Manual) Band Neuts % (Manual) Lymphocytes % (Manual) Monocytes % (Manual) Eosinophils % (Manual) Abs Neuts (Manual) Nucleated RBCs/100 WBC Differential Comment Smudge Cells Platelet Estimate Platelet Morphology RBC Morphology Ovalocytes Raz Cells PT INR APTT Fibrinogen Puncture Site Right radial Patient Temperature 98.6 O2 Saturation 93 ABG pH 7.28 L* ABG pCO2 41 ABG pO2 87 ABG HCO3 19 L ABG O2 Content 12.2 ABG Base Excess -6.8 L ABG Methemoglobin 1.4 [place] Test Present Hemoglobin 9.2 L Carboxyhemoglobin 1.4 O2 Delivery Device Nrb Liter Flow 15.00 Vent Setting Inspired O2 100 Critical Value Yes Sodium Potassium Chloride Carbon Dioxide Anion Gap BUN Creatinine Estimated GFR POC Glucose 160 H 176 H Random Glucose Lactic Acid Uric Acid Calcium Phosphorus Magnesium Total Bilirubin Direct Bilirubin Indirect Bilirubin AST ALT Alkaline Phosphatase Ammon[place] Total Creatine Kinase Troponin I Total Protein Albumin Amylase Lipase TSH 07/06/18 07/06/18 07/06/18 03:55 04:24 04:24 WBC 42.7 H RBC 2.84 L Hgb 8.6 L Hct 26.6 L MCV 93.9 MCH 30.4 MCHC 32.3 RDW 16.7 Plt Count 158 D MPV 8.6 Prelim Diff (Auto) Slide review pending Neut % (Auto) 27.1 Lymph % (Auto) 69.5 H [place] % (Auto) 2.4 Eos % (Auto) 0.8 Baso % (Auto) 0.2 Neut # (Auto) 11.5 H Lymph # (Auto) 29.7 H [place] # (Auto) 1.0 H Eos # (Auto) 0.3 Baso # (Auto) 0.1 WBC Differential Manual diff final Seg Neuts % (Manual) 13 L Band Neuts % (Manual) 2 Lymphocytes % (Manual) 81 H Monocytes % (Manual) 1 Eosinophils % (Manual) 3 Abs Neuts (Manual) 6.4 Nucleated RBCs/100 WBC Differential Comment . Smudge Cells Present H Platelet Estimate Low L Platelet Morphology Normal RBC Morphology Ovalocytes 1+ H [place] Cells PT INR APTT Fibrinogen Puncture Site Right radial Patient Temperature 98.6 O2 Saturation 90 ABG pH 7.25 L* ABG pCO2 47 H ABG pO2 75 ABG HCO3 20 L ABG O2 Content 10.9 L ABG Base Excess -5.7 L ABG Methemoglobin 1.1 [place] Test Present Hemoglobin 8.5 L Carboxyhemoglobin 1.4 O2 Delivery Device Nrb Liter Flow 15.00 Vent Setting Inspired O2 100 Critical Value Yes Sodium Potassium Chloride Carbon Dioxide Anion Gap BUN Creatinine Estimated GFR POC Glucose Random Glucose Lactic Acid 2.3 H Uric Acid Calcium Phosphorus Magnesium Total Bilirubin Direct Bilirubin Indirect Bilirubin AST ALT Alkaline Phosphatase Ammonia Total Creatine Kinase Troponin I Total Protein Albumin Amylase Lipase TSH 07/06/18 07/06/18 07/06/18 04:24 04:24 04:24 WBC RBC Hgb Hct MCV MCH MCHC RDW Plt Count MPV Prelim Diff (Auto) Neut % (Auto) Lymph % (Auto) [place] % (Auto) Eos % (Auto) Baso % (Auto) Neut # (Auto) Lymph # (Auto) [place] # (Auto) Eos # (Auto) Baso # (Auto) WBC Differential Seg Neuts % (Manual) Band Neuts % (Manual) Lymphocytes % (Manual) Monocytes % (Manual) Eosinophils % (Manual) Abs Neuts (Manual) Nucleated RBCs/100 WBC Differential Comment Smudge Cells Platelet Estimate Platelet Morphology RBC Morphology Ovalocytes [place] Cells PT 20.7 H INR 2.0 APTT 52.7 H Fibrinogen 114 L Puncture Site Patient Temperature O2 Saturation ABG pH ABG pCO2 ABG pO2 ABG HCO3 ABG O2 Content ABG Base Excess ABG Methemoglobin [place] Test Hemoglobin Carboxyhemoglobin O2 Delivery Device Liter Flow Vent Setting Inspired O2 Critical Value Sodium 140 Potassium 5.1 Chloride 105 Carbon Dioxide 22.0 Anion Gap 13 BUN 91 H Creatinine 5.63 H Estimated GFR 7 L POC Glucose Random Glucose 157 H Lactic Acid Uric Acid 11.7 H Calcium 8.9 Phosphorus 5.5 H Magnesium 2.1 Total Bilirubin 2.1 H Direct Bilirubin 1.1 H Indirect Bilirubin 1.0 H AST 267 H ALT 63 H Alkaline Phosphatase 158 H Ammonia Less than 10 L Total Creatine Kinase 68 Troponin I 0.06 H Total Protein 6.7 D Albumin 5.1 H Amylase 254 H Lipase 1209 H TSH 15.800 H 07/06/18 07/06/18 07/06/18 05:08 05:45 11:35 WBC RBC Hgb Hct MCV MCH MCHC RDW Plt Count MPV Prelim Diff (Auto) Neut % (Auto) Lymph % (Auto) [place] % (Auto) Eos % (Auto) Baso % (Auto) Neut # (Auto) Lymph # (Auto) [place] # (Auto) Eos # (Auto) Baso # (Auto) WBC Differential Seg Neuts % (Manual) Band Neuts % (Manual) Lymphocytes % (Manual) Monocytes % (Manual) Eosinophils % (Manual) Abs Neuts (Manual) Nucleated RBCs/100 WBC Differential Comment Smudge Cells Platelet Estimate Platelet Morphology RBC Morphology Ovalocytes Raz Cells PT INR APTT Fibrinogen Puncture Site Right radial Patient Temperature 98.6 O2 Saturation 96 ABG pH 7.33 L ABG pCO2 36 L ABG pO2 119 ABG HCO3 18 L ABG O2 Content 11.6 L ABG Base Excess -6.4 L ABG Methemoglobin 1.5 [place] Test Present Hemoglobin 8.5 L Carboxyhemoglobin 1.3 O2 Delivery Device Ventilator Liter Flow Vent Setting Prvc 18/530/1.10/8 Inspired O2 80 Critical Value No Sodium Potassium Chloride Carbon Dioxide Anion Gap BUN Creatinine Estimated GFR POC Glucose 172 H 157 H Random Glucose Lactic Acid Uric Acid Calcium Phosphorus Magnesium Total Bilirubin Direct Bilirubin Indirect Bilirubin AST ALT Alkaline Phosphatase [place]mon[place] Total Creatine Kinase Troponin I Total Protein Albumin Amylase Lipase TSH Result Diagrams: 07/06/18 04:24 07/06/18 04:24 Microbiology: Microbiology 07/06/18 08:10 Influenza Types A,B Antigen - Final Nasal Wash Negative for FLU A and B antigen Infection due to influenza A or B cannot be ruled out since the antigen present in the sample may be below the detection limit of the test. Imaging: Abdomen Ultrasound 06/25/18 00:00 CONCLUSION: 1. Moderate ascites 2. Hepatic cirrhosis Abdomen/Pelvis CT 06/25/18 00:00 CONCLUSION: 1. Suspected cirrhotic liver. 2. Mild to moderate amount of ascites. 3. Bilateral pleural effusions being mild on the right and minimal on the left. 4. Increased density at the inferior right middle lobe and right lower lobe likely related to consolidation or atelectasis. 5. Anasarca 6. Tiny nonobstructing left renal stone. Chest Ultrasound 06/25/18 00:00 CONCLUSION: 1. Large right pleural effusion without appreciable loculation. Thoracentesis Ultrasound 06/25/18 00:00 CONCLUSION: 1. Uncomplicated right thoracentesis. Head CT 06/25/18 06:47 CONCLUSION: 1. Stable evaluation of the head. 2. No evidence of acute infarct, hemorrhage, mass or edema. . Paracentesis Ultrasound 06/29/18 00:00 CONCLUSION: 1. Uncomplicated paracentesis. TIPS 07/01/18 00:00 CONCLUSION: 1. Uncomplicated fluoroscopic guided placement of TIPS shunts from the right hepatic vein to the right portal vein, as above. PLAN: Baseline ultrasound examination in 2 weeks with surveillance ultrasound at 3 months, 6 months and one year. Chest X-Ray 07/06/18 00:52 CONCLUSION: 1. Diffuse bilateral airspace disease more prominent on current study. 2. Probable small pleural effusions. Abdomen X-Ray 07/06/18 11:06 CONCLUSION: Dobbhoff tube tip is noted within the expected region of the distal stomach. Procedures: 06/25/18-Ultrasound guided paracentesis by interventional radiology with removal of 5700 mL's of clear, yellow fluid. 06/25/18 -Ultrasound-guided thoracentesis by interventional radiology with removal of 1200 mL's of clear, yellow fluid. 06/29/1826-[id number] paracentesis by interventional radiology with removal of 5900 mL's of clear, red fluid. 07/01/18-transjugular intrahepatic portosystemic shunt placement by interventional radiology 07/06/18-Endotracheally intubated . Assessment and Plan - Disease Oriented Problem List (1) Sepsis (2) Diabetes (3) Pneumonia (4) Acute on chronic kidney failure (5) Abdominal distension - Symptom Scale (1) Shortness of breath 0-10 Scale: Unable to quantify Comment: This is most likely from ascites and pleural effusion. Patient has had ultrasound guided thoracentesis on 03/05 with removal of 1200 mL's of clear, yellow fluid and ultrasound guided paracentesis on 06/25/18 with removal of 5700 mL's of clear fluid. (2) Debility 0-10 Scale: Unable to quantify Comment: Progressive. Patient has multiple ongoing comorbidities. Pertinent Non-Medical Issues: Psychosocial: Patient is originally from [facility]. She moved to [place] in 1983. She has been to her current for 29 years. 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 Patient has never had children. Spiritual: Patient is [employer]-open to tree worker visit. Legal: Patient has completed designation of healthcare surrogate form today 07/05. Ethical issues impacting care: None identified at this time Important Contacts: Spouse-Higinio Lima [phone] . Prognosis: Mrs. Phoenix is a 72-year-old female with a past medical history of chronic lymphoid leukemia, asthma, diabetes mellitus, fatty liver, gout, arthritis, kidney disease, and thyroid disease. Patient presented to the emergency room on 06/25/18 for evaluation of generalized weakness, abdominal distention, shortness of breath and a painful bump on her head which she sustained from a fall from her water bed a week prior to presenting to the emergency room. Diagnostic EGD has showed that patient has liver cirrhosis. Clinical course complicated by shortness of breath, worsening renal function, and recurrent ascites. Given multiple ongoing comorbidities, patient remains at high risk for further complications, deterioration and decline. . Code Status: Full Code Plan: PLAN: Legal decision maker: Patient is alert and oriented to self, place and situation. Patient has insight regarding her medical condition and is able to weigh burdens and benefits of treatments offered to her. Patient is capable of making her own medical decisions. In the event that patient is incapacitated, she has designated her spouse Higinio Lima as her healthcare surrogate and her neighbor Sudheer Nicholson is her alternate healthcare surrogate. Goals: Per last discussion with patient (prior to intubation) and spouse on 07/04/18-goals with aggressive. Attempted to contact patient`s spouse via telephone to readdress goals of medical treatment with no success. Left voice message with palliative care contact information. CODE STATUS: Full code SYMPTOMS: * Shortness of breath:This is most likely from ascites and pleural effusion. Patient has had ultrasound guided thoracentesis on 06/25/18 with removal of 1200 mL's of clear, yellow fluid and ultrasound guided paracentesis on 06/25/18 with removal of 5700 mL's of clear fluid. Patient had another therapeutic paracentesis with removal of 5900 mL's of clear red fluid. Intubated on 07/06/18 - due to confusion, tachypneic, desaturation and lethargy. Currently on FiO2 50 %. Need for chest tube placement. * Debility: Progressive. Patient has ongoing multiple comorbidities and has had multiple falls at home. Patient uses a wheeled walker at room. Physical therapy consulted, recommended PT at rehab. Palliative care will continue to follow the patient during hospital course as condition evolves, to assist patient/decision-maker with understanding of their medical conditions, weighing benefits/burdens of treatment options, for clarification of goals of treatment. Additionally will assist with any symptoms of palliative concern Attestation Attestation: To help prompt me to consider important information that might be impacting today's encounter and assessment, information from prior notes written by myself or my colleagues may have been "brought forward" into today's note. My signature on this note, however, is an attestation that I personally performed the exam, history, and/or decision-making noted today, and, unless otherwise indicated, the interactions with patient, family, and staff as well as the review of records all occurred today. I also attest that the listed assessment and stated plan reflect my best clinical judgment today based on the combination of historical information, prior notes, and today's exam/ interactions. When time spent is documented, it refers only to time spent today by the signer, or if indicated, combined time spent today by collaborating physician/nurse practitioner.
[2018-07-06] MEDS ORDERED: Midazolam Inj 5 MG/ML 1 ML Vial ONE (14:52)
[2018-07-06] MEDS ORDERED: Sodium Chlor 0.9% Inj 250 ML IV.SIG SCH (15:00)
--- NOTE | 2018-07-06 15:19 | P.PCN ---
Date of procedure: 07/06/18 Pre-op diagnosis: Acute hypoxemic failure Post-op diagnosis: same Procedure: Right pigtail chest tube placement, ultrasound-guided Details of procedure: Consent obtained. The patient was laid in left lateral decubitus position. The lateral chest wall was cleaned with ChloraPrep twice. Regional sterile drapes were applied. 1% lidocaine with epi was used for local anesthesia and injected into the subcutaneous and deep muscle tissues at the site marked by ultrasound. A 0.25 cm skin incision was made with a scalpel blade. Insertion needle was placed angled superiorly and posteriorly and the insertion needle was entered into the pleural space superior to the rib and straw colored pleural pleural fluid was obtained. Guidewire was placed and track was dilated. A size 10 Amharic chest tube was inserted into the pleural cavity using Seldinger technique with initial output of approximately 1000 mL. 3.0 silk was used to to secure the chest tube along with StayFix fixation device. The chest tube was connected to a Pleur-evac drainage system via vinyl connecting tube. Anesthesia: local Surgeon: Allan Sylvester Estimated blood loss (mL): 1 Pathology: other (pl fluid studies) Condition: critical Disposition: ICU
--- NOTE | 2018-07-06 15:34 | ECG ---
Date Performed: 07/06/2018 Time Performed: 07:21:30 PTAGE: 72 years EKG: SUPRAVENTRICULAR BRADYCARDIA LOW QRS VOLTAGE IN PRECORDIAL LEADS POSSIBLE ANTERIOR MYOCARDI AL INFARCTION , OF INDETERMINATE AGE Since the previous tracing, no significant change noted ABNORMAL ECG PREVIOUS TRACING : 06/25/2018 05.37 DOCTOR: Sofia Acharya Interpretating Date/Time 07/06/2018 15:31:13
--- NOTE | 2018-07-06 16:21 | XR ---
EXAM DATE: 07/06/2018 4:17 PM EST AGE/SEX: 72 years / Female INDICATIONS: Post right side chest tube placement. CLINICAL DATA: This is the patient's subsequent encounter. Patient reports that signs and symptoms h ave been present for 1 week and indicates a pain score of Nonresponsive. MEDICAL/SURGICAL HISTORY: . Asthma. Diabetes. Hypertension. Leukemia. . Thyroidectomy. COMPARISON: [facility] – [place], CHEST 1V SINGLE AP, 07/06/2018. . FINDINGS: ET tube is is above the james. The right lung is clear. Persistent consolidative changes are present in the left base. The heart is minimally enlarged. The pulmonary vascularity is normal CONCLUSION: Consolidative changes left base. ET tube above the james Electronically signed by: Fernie Bhardwaj MD Board Certified Radiologist 07/06/2018 4:20 PM EST
--- NOTE | 2018-07-06 16:35 | P.PNID ---
Subjective Remarks: Patient is a 72-year-old female presented to the hospital complaining of shortness of breath. She has had problem with shortness of breath over the last several months, but it has progressively worsened that she has difficulty ambulating. She gets orthopnea. She occasionally has cough but no phlegm. Denies any chest pain. She admits to some intermittent low-grade fevers. It was also noted that her abdomen has been more distended. On evaluation she was found to have pleural effusions as well as ascites and liver cirrhosis on ultrasound. She also had a CT of the abdomen and pelvis which did not show any lymphadenopathy. She has not been febrile. She has had thoracentesis and they took out 1.2 L of fluid. Paracentesis and they took out 5.7 L of ascites. Since admission she has had leukocytosis of 20,000 and higher. 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 She has not required any treatment for her CLL. Patient currently she has had upper endoscopy. She has had some diarrhea. She is noted increased abdominal girth again. Patient also has had increasing creatinine, and her urine output has been decreasing. Stool for C. difficile is negative. I do not have a urinalysis. Her initial chest x-ray on admission showing a right base infiltrate and effusion. Her last chest x-ray after she has had thoracenteses showed hypoaeration, with no infiltrates seen. Patient has been on Rocephin since admission. Infectious disease consultation has been requested to assist with evaluation and treatment of leukocytosis. Notes reviewed D/W RN Patient required intubation today for progressive respiratory distress Pigtail cath placed on her R chest - has put out 1L already BP ok Temps ok WBC elevated but lower Creatinine worsening She is sedated on the vent CXR with bilateral infiltrates Had TIPS procedure 07/01 Antibiotics: Levaquin Flagyl Lines: PIV Past Medical History: Asthma Diabetes Gout Hypertension Leukemia H/O foot surgery H/O thyroidectomy Allergies/Adverse Reactions: Allergies No Known Allergies Allergy (Verified 06/25/18 05:25) Objective Vital Signs 07/05/18 17:00 07/05/18 18:00 07/05/18 19:00 Temperature Pulse Rate 61 61 63 Respiratory Rate 22 25 H 35 H Blood Pressure 144/67 H 150/73 H 150/63 H Pulse Oximetry 96 94 L 92 L 12/18/18 19:56 07/05/18 19:59 07/05/18 20:00 Temperature 97.9 F Pulse Rate 65 65 Respiratory Rate 22 26 H Blood Pressure 146/69 H Pulse Oximetry 92 L 90 L 07/05/18 21:00 07/05/18 22:00 07/05/18 23:00 Temperature Pulse Rate 63 64 64 Respiratory Rate 24 27 H 24 Blood Pressure 129/69 128/60 139/76 Pulse Oximetry 87 L 72 L 100 07/05/18 23:13 07/06/18 00:00 07/06/18 00:17 Temperature 98.3 F Pulse Rate 64 Respiratory Rate 30 H Blood Pressure 149/63 H Pulse Oximetry 96 93 L 96 07/06/18 02:02 07/06/18 03:00 07/06/18 04:00 Temperature 97.6 F Pulse Rate 71 58 L 62 Respiratory Rate 40 H 13 25 H Blood Pressure 103/55 L Pulse Oximetry 91 L 94 L 94 L 07/06/18 04:03 07/06/18 04:04 07/06/18 04:06 Temperature Pulse Rate 63 63 60 Respiratory Rate 15 20 43 H Blood Pressure 146/76 H 126/65 139/64 Pulse Oximetry 95 94 L 94 L 07/06/18 04:09 07/06/18 04:10 07/06/18 04:13 Temperature Pulse Rate 56 L 55 L 55 L Respiratory Rate 39 H 18 21 Blood Pressure 107/53 L 75/36 L 58/38 L Pulse Oximetry 97 96 98 07/06/18 04:15 07/06/18 04:16 07/06/18 04:19 Temperature Pulse Rate 55 L 54 L 57 L Respiratory Rate 25 H 23 26 H Blood Pressure 80/44 L 84/48 L 93/55 L Pulse Oximetry 98 98 100 07/06/18 04:20 07/06/18 04:23 07/06/18 04:24 Temperature Pulse Rate 58 L 59 L 59 L Respiratory Rate 18 18 18 Blood Pressure 101/52 L 88/53 L 103/50 L Pulse Oximetry 99 100 100 07/06/18 04:31 07/06/18 04:40 07/06/18 04:50 Temperature Pulse Rate 60 59 L 61 Respiratory Rate 15 12 34 H Blood Pressure 104/53 L 103/55 L 87/50 L Pulse Oximetry 99 99 100 07/06/18 04:56 07/06/18 05:00 07/06/18 05:20 Temperature Pulse Rate 60 58 L 54 L Respiratory Rate 20 18 18 Blood Pressure 125/60 118/55 L 87/47 L Pulse Oximetry 98 100 80 L 07/06/18 05:26 07/06/18 05:30 07/06/18 05:41 Temperature Pulse Rate 54 L 53 L 53 L Respiratory Rate 18 18 11 L Blood Pressure 103/51 L 104/55 L 106/55 L Pulse Oximetry 100 100 100 07/06/18 05:50 07/06/18 06:00 07/06/18 06:10 Temperature Pulse Rate 53 L 53 L 54 L Respiratory Rate 15 18 15 Blood Pressure 96/50 L 93/54 L 95/50 L Pulse Oximetry 98 100 97 07/06/18 06:20 07/06/18 06:30 07/06/18 06:40 Temperature Pulse Rate 54 L 54 L 53 L Respiratory Rate 17 8 L 12 Blood Pressure 96/50 L 90/55 L 88/49 L Pulse Oximetry 98 99 99 07/06/18 06:47 07/06/18 06:51 07/06/18 07:00 Temperature Pulse Rate 56 L 54 L 54 L Respiratory Rate 20 16 14 Blood Pressure 91/54 L 104/51 L 106/53 L Pulse Oximetry 99 98 99 07/06/18 07:11 07/06/18 07:21 07/06/18 07:30 Temperature Pulse Rate 55 L 55 L 55 L Respiratory Rate 31 H 22 20 Blood Pressure 132/60 105/57 L 108/59 L Pulse Oximetry 99 100 100 07/06/18 07:40 07/06/18 07:50 07/06/18 07:51 Temperature Pulse Rate 55 L 54 L 54 L Respiratory Rate 20 18 18 Blood Pressure 113/58 L 108/58 L Pulse Oximetry 99 100 100 07/06/18 08:00 07/06/18 08:10 07/06/18 08:20 Temperature 98.0 F Pulse Rate 54 L 54 L 54 L Respiratory Rate 17 18 18 Blood Pressure 112/62 111/53 L 116/58 L Pulse Oximetry 100 100 100 07/06/18 08:30 07/06/18 08:40 07/06/18 08:50 Temperature Pulse Rate 53 L 54 L 54 L Respiratory Rate 18 19 18 Blood Pressure 117/55 L 104/57 L 109/59 L Pulse Oximetry 100 100 100 07/06/18 09:00 07/06/18 09:10 07/06/18 09:20 Temperature Pulse Rate 54 L 54 L 54 L Respiratory Rate 18 18 19 Blood Pressure 109/55 L 109/55 L 105/56 L Pulse Oximetry 100 100 100 07/06/18 09:30 07/06/18 09:40 07/06/18 09:50 Temperature Pulse Rate 53 L 54 L 54 L Respiratory Rate 18 18 18 Blood Pressure 116/58 L 118/58 L 117/58 L Pulse Oximetry 100 100 100 07/06/18 10:00 07/06/18 10:10 07/06/18 10:20 Temperature Pulse Rate 55 L 54 L 54 L Respiratory Rate 25 H 18 18 Blood Pressure 122/57 L 113/56 L 111/57 L Pulse Oximetry 100 100 100 07/06/18 10:31 07/06/18 10:50 07/06/18 11:00 Temperature Pulse Rate 56 L 54 L 53 L Respiratory Rate 19 18 18 Blood Pressure 94/52 L 115/59 L 126/57 L Pulse Oximetry 96 98 100 07/06/18 11:10 07/06/18 11:20 07/06/18 11:30 Temperature Pulse Rate 53 L 54 L 52 L Respiratory Rate 18 18 18 Blood Pressure 118/59 L 105/52 L 111/58 L Pulse Oximetry 100 92 L 99 07/06/18 11:35 07/06/18 11:40 07/06/18 11:50 Temperature Pulse Rate 53 L 54 L 53 L Respiratory Rate 18 18 18 Blood Pressure 114/57 L 113/54 L Pulse Oximetry 98 100 95 07/06/18 12:00 07/06/18 12:10 07/06/18 12:20 Temperature 98.4 F Pulse Rate 53 L 53 L 53 L Respiratory Rate 18 18 18 Blood Pressure 110/57 L 118/55 L 112/58 L Pulse Oximetry 96 98 97 07/06/18 12:30 07/06/18 12:40 07/06/18 12:50 Temperature Pulse Rate 53 L 52 L 54 L Respiratory Rate 21 22 19 Blood Pressure 111/58 L 110/58 L 110/54 L Pulse Oximetry 96 97 92 L 07/06/18 13:00 07/06/18 13:10 07/06/18 13:20 Temperature Pulse Rate 52 L 52 L 52 L Respiratory Rate 18 17 18 Blood Pressure 117/58 L 110/55 L 118/55 L Pulse Oximetry 96 95 96 07/06/18 13:30 07/06/18 13:40 07/06/18 13:50 Temperature Pulse Rate 52 L 52 L 51 L Respiratory Rate 18 19 18 Blood Pressure 107/56 L 109/59 L 105/57 L Pulse Oximetry 96 96 98 07/06/18 14:00 07/06/18 14:11 07/06/18 14:20 Temperature Pulse Rate 51 L 51 L 52 L Respiratory Rate 18 23 20 Blood Pressure 114/57 L 113/55 L 103/54 L Pulse Oximetry 97 97 94 L 07/06/18 14:30 07/06/18 14:40 07/06/18 14:50 Temperature Pulse Rate 51 L 51 L 51 L Respiratory Rate 18 19 19 Blood Pressure 108/59 L 108/60 105/56 L Pulse Oximetry 96 95 95 07/06/18 15:00 07/06/18 15:10 07/06/18 15:20 Temperature Pulse Rate 50 L 50 L 50 L Respiratory Rate 18 10 L 18 Blood Pressure 127/61 121/58 L 92/48 L Pulse Oximetry 100 100 98 07/06/18 15:31 07/06/18 15:40 07/06/18 15:50 Temperature Pulse Rate 49 L 50 L 49 L Respiratory Rate 18 18 18 Blood Pressure 112/56 L 101/50 L 99/50 L Pulse Oximetry 100 91 L 93 L 07/06/18 16:00 Temperature 97.6 F Pulse Rate 48 L Respiratory Rate 20 Blood Pressure 97/60 L Pulse Oximetry 96 Intake & Output 07/05/18 07/06/18 07/06/18 18:59 06:59 18:59 Intake Total 240 / 240 250 / 250 100 / 100 Output Total 200 / 200 Balance 40 / 40 250 / 250 100 / 100 Weight 88 kg Intake: IV 240 / 240 250 / 250 100 / 100 Sodium Bicarbonate 8.4% Inj 50 50 / 50 ML @ 0 mls/hr .ROUTE .STK-MED ONE Rx#:[id number] Flexbumin 25% Inj 100 ML @ 60 190 / 190 200 / 200 100 / 100 mls/hr IV.SIG Q8H [facility] Rx#: [id number] Levaquin 250 mg Premix Inj 250 50 / 50 mg In 50 ml @ 50 mls/hr IV.SIG Q24H [facility] Rx#:[id number] Oral 0 / 0 Output: Urine 200 / 200 Other: # Incontinent Voids 1 Date of Last Bowel Movement 07/05/18 07/05/18 07/05/18 # Bowel Movements 2 0 07/06/18 11:50 Sputum - Endotracheal Gram Stain - Final 07/06/18 11:50 Sputum - Endotracheal Sputum Culture - Pending 07/06/18 15:15 Fluid - Pleural fluid Acid Fast Bacilli Smear - Pending 07/06/18 15:15 Fluid - Pleural fluid Mycobacterial Culture - Pending 07/06/18 15:15 Fluid - Pleural fluid Gram Stain - Pending 07/06/18 15:15 Fluid - Pleural fluid Body Fluid Culture - Pending 07/06/18 15:15 Fluid - Pleural fluid Fungal Smear - Pending 07/06/18 15:15 Fluid - Pleural fluid Fungal Culture - Pending 07/06/18 08:10 Nasal Wash Influenza Types A,B Antigen - Final Negative for FLU A and B antigen Infection due to influenza A or B cannot be ruled out since the antigen present in the sample may be below the detection limit of the test. 07/06/18 05:15 Blood - Peripheral Aerobic Blood Culture - Pending 07/06/18 05:15 Blood - Peripheral Anaerobic Blood Culture - Pending 07/06/18 05:20 Blood - Peripheral Aerobic Blood Culture - Pending 07/06/18 05:20 Blood - Peripheral Anaerobic Blood Culture - Pending Lab - Hematology Results 07/05/18 07/06/18 09:19 04:24 WBC 63.7 H 42.7 H RBC 3.32 L 2.84 L Hgb 9.9 L 8.6 L Hct 31.3 L 26.6 L MCV 94.4 93.9 MCH 30.0 30.4 MCHC 31.8 L 32.3 RDW 17.3 H 16.7 Plt Count 237 158 D MPV 8.5 8.6 Prelim Diff (Auto) Slide review pending Slide review pending Neut % (Auto) 25.4 27.1 Lymph % (Auto) 70.3 H 69.5 H Hill % (Auto) 3.0 2.4 Eos % (Auto) 1.1 0.8 Baso % (Auto) 0.2 0.2 Neut # (Auto) 16.2 H 11.5 H Lymph # (Auto) 44.8 H 29.7 H Hill # (Auto) 1.9 H 1.0 H Eos # (Auto) 0.7 H 0.3 Baso # (Auto) 0.1 0.1 WBC Differential Manual diff final Manual diff final Seg Neuts % (Manual) 15 L 13 L Band Neuts % (Manual) 1 2 Lymphocytes % (Manual) 83 H 81 H Monocytes % (Manual) 1 Eosinophils % (Manual) 1 3 Abs Neuts (Manual) 10.2 H 6.4 Nucleated RBCs/100 WBC 1 H Differential Comment . . Smudge Cells Present H Present H Platelet Estimate Normal Low L Platelet Morphology Normal Normal Ovalocytes 1+ H Lab - Chemistry Results 07/04/18 07/04/18 07/05/18 17:36 23:43 07:37 Sodium Potassium Chloride Carbon Dioxide Anion Gap BUN Creatinine Estimated GFR POC Glucose 203 H 176 H 154 H Random Glucose Lactic Acid Uric Acid Calcium Phosphorus Magnesium Total Bilirubin Direct Bilirubin Indirect Bilirubin AST ALT Alkaline Phosphatase Ammonia Total Creatine Kinase Troponin I Total Protein Albumin Amylase Lipase [facility] 07/05/18 07/05/18 07/05/18 09:19 11:58 17:13 Sodium 138 Potassium 5.1 Chloride 106 Carbon Dioxide 20.9 L Anion Gap 11 BUN 87 H Creatinine 5.32 H Estimated GFR 8 L POC Glucose 127 H 160 H Random Glucose 160 H Lactic Acid Uric Acid Calcium 9.0 Phosphorus Magnesium Total Bilirubin Direct Bilirubin Indirect Bilirubin AST ALT Alkaline Phosphatase Ammonia Total Creatine Kinase Troponin I Total Protein Albumin Amylase Lipase [facility] 07/05/18 07/06/18 07/06/18 20:27 04:24 04:24 Sodium 140 Potassium 5.1 Chloride 105 Carbon Dioxide 22.0 Anion Gap 13 BUN 91 H Creatinine 5.63 H Estimated GFR 7 L POC Glucose 176 H Random Glucose 157 H Lactic Acid 2.3 H Uric Acid 11.7 H Calcium 8.9 Phosphorus 5.5 H Magnesium 2.1 Total Bilirubin 2.1 H Direct Bilirubin 1.1 H Indirect Bilirubin 1.0 H AST 267 H ALT 63 H Alkaline Phosphatase 158 H Ammonia Total Creatine Kinase 68 Troponin I 0.06 H Total Protein 6.7 D Albumin 5.1 H Amylase 254 H Lipase 1209 H TSH 15.800 H 07/06/18 07/06/18 07/06/18 04:24 05:45 11:35 Sodium Potassium Chloride Carbon Dioxide Anion Gap BUN Creatinine Estimated GFR POC Glucose 172 H 157 H Random Glucose Lactic Acid Uric Acid Calcium Phosphorus Magnesium Total Bilirubin Direct Bilirubin Indirect Bilirubin AST ALT Alkaline Phosphatase Ammonia Less than 10 L Total Creatine Kinase Troponin I Total Protein Albumin Amylase Lipase TSH Imaging: ITS Impressions Abdomen Ultrasound 06/25/18 00:00 CONCLUSION: 1. Moderate ascites 2. Hepatic cirrhosis Abdomen/Pelvis CT 06/25/18 00:00 CONCLUSION: 1. Suspected cirrhotic liver. 2. Mild to moderate amount of ascites. 3. Bilateral pleural effusions being mild on the right and minimal on the left. 4. Increased density at the inferior right middle lobe and right lower lobe likely related to consolidation or atelectasis. 5. Anasarca 6. Tiny nonobstructing left renal stone. Chest Ultrasound 06/25/18 00:00 CONCLUSION: 1. Large right pleural effusion without appreciable loculation. Thoracentesis Ultrasound 06/25/18 00:00 CONCLUSION: 1. Uncomplicated right thoracentesis. Head CT 06/25/18 06:47 CONCLUSION: 1. Stable evaluation of the head. 2. No evidence of acute infarct, hemorrhage, mass or edema. . Paracentesis Ultrasound 06/29/18 00:00 CONCLUSION: 1. Uncomplicated paracentesis. TIPS 07/01/18 00:00 CONCLUSION: 1. Uncomplicated fluoroscopic guided placement of TIPS shunts from the right hepatic vein to the right portal vein, as above. PLAN: Baseline ultrasound examination in 2 weeks with surveillance ultrasound at 3 months, 6 months and one year. Chest X-Ray 07/06/18 00:52 CONCLUSION: 1. Diffuse bilateral airspace disease more prominent on current study. 2. Probable small pleural effusions. Abdomen X-Ray 07/06/18 11:06 CONCLUSION: Dobbhoff tube tip is noted within the expected region of the distal stomach. Physical Exam: GENERAL: Sedated on the vent SKIN: Cool and dry. No generalized rash. HEAD: Atraumatic. Normocephalic. No temporal wasting, or tenderness. EYES: [place] conjunctiva. No petechia or hemorrhage. Has mild scleral icterus. No injection or drainage. EARS, NOSE AND THROAT: Orally intubated NECK: Ecchymoses R side where they had venipunture for TIPS CARDIOVASCULAR: Regular rate and rhythm. No murmurs, rubs or gallops heard RESPIRATORY: Decreased breath sounds at bases. Cath R side with serous fluid ABDOMEN: Globular, soft, mildly distended, no reaction to palpation. Bowel sounds present and normoactive. EXTREMITIES: No clubbing, cyanosis. Has mild pedal edema. No calf tenderness. NEUROLOGICAL: Sedated PSYCHIATRIC: Unable to assess LINE: No evidence of infection Assessment and Plan - Plan Impression Leukocytosis, etiology? - ?reactive, up again - no obvious source of infection - CXR now clear after tap - no UA, no complaints - C diff negative - ?part of her CLL, has lymphocyte predominance on manual diff Bilateral infiltrates - CHF likely, or ARDS Respiratory failure Eligio effusions and ascites, etiology? Known CLL, stage 0 Ascites, has liver cirrhosis on imaging - S/P TIPS Chest pain, ?etiology - ?related to TIPS Renal failure, creatinine rising Recommendation Follow CBC Follow new C/S - fluid, sputum Continue Levaquin and Flagyl for now Palliative medicine following Monitor progress Poor prognosis D/W [facility]
[2018-07-06 16:53] LABS: RBC,Pleural Fluid 12268 /mm3 (0-0)
[2018-07-06 17:00] LABS: Lymphocytes,Pleural Fluid 46 %; Mesothelial,Pleural Fluid 24 %; Monocytes,Pleural Fluid 7 %; Neutrophils,Pleural Fluid 6 %
--- NOTE | 2018-07-06 18:24 | P.PNPL ---
Subjective Interval history: 72 YOWF with br asthma, DM, Rt lung infilt and Pl eff Breathing better no Abd pain no fever. had TIPS procedure Developed Worsening sob, required intubation Had rt chest cathetor placed On Vent PRVC AC, Fi02 40% Physical Exam Vital signs: Vital Signs 07/05/18 19:00 07/05/18 19:56 07/05/18 19:59 Temperature Pulse Rate 63 65 Respiratory Rate 35 H 22 Blood Pressure 150/63 H Pulse Oximetry 92 L 92 L 07/05/18 20:00 07/05/18 21:00 07/05/18 22:00 Temperature 97.9 F Pulse Rate 65 63 64 Respiratory Rate 26 H 24 27 H Blood Pressure 146/69 H 129/69 128/60 Pulse Oximetry 90 L 87 L 72 L 07/05/18 23:00 07/05/18 23:13 07/06/18 00:00 Temperature 98.3 F Pulse Rate 64 64 Respiratory Rate 24 30 H Blood Pressure 139/76 149/63 H Pulse Oximetry 100 96 93 L 07/06/18 00:17 07/06/18 02:02 07/06/18 03:00 Temperature Pulse Rate 71 58 L Respiratory Rate 40 H 13 Blood Pressure 103/55 L Pulse Oximetry 96 91 L 94 L 07/06/18 04:00 07/06/18 04:03 07/06/18 04:04 Temperature 97.6 F Pulse Rate 62 63 63 Respiratory Rate 25 H 15 20 Blood Pressure 146/76 H 126/65 Pulse Oximetry 94 L 95 94 L 07/06/18 04:06 07/06/18 04:09 07/06/18 04:10 Temperature Pulse Rate 60 56 L 55 L Respiratory Rate 43 H 39 H 18 Blood Pressure 139/64 107/53 L 75/36 L Pulse Oximetry 94 L 97 96 07/06/18 04:13 07/06/18 04:15 07/06/18 04:16 Temperature Pulse Rate 55 L 55 L 54 L Respiratory Rate 21 25 H 23 Blood Pressure 58/38 L 80/44 L 84/48 L Pulse Oximetry 98 98 98 07/06/18 04:19 07/06/18 04:20 07/06/18 04:23 Temperature Pulse Rate 57 L 58 L 59 L Respiratory Rate 26 H 18 18 Blood Pressure 93/55 L 101/52 L 88/53 L Pulse Oximetry 100 99 100 07/06/18 04:24 07/06/18 04:31 07/06/18 04:40 Temperature Pulse Rate 59 L 60 59 L Respiratory Rate 18 15 12 Blood Pressure 103/50 L 104/53 L 103/55 L Pulse Oximetry 100 99 99 07/06/18 04:50 07/06/18 04:56 07/06/18 05:00 Temperature Pulse Rate 61 60 58 L Respiratory Rate 34 H 20 18 Blood Pressure 87/50 L 125/60 118/55 L Pulse Oximetry 100 98 100 07/06/18 05:20 07/06/18 05:26 07/06/18 05:30 Temperature Pulse Rate 54 L 54 L 53 L Respiratory Rate 18 18 18 Blood Pressure 87/47 L 103/51 L 104/55 L Pulse Oximetry 80 L 100 100 07/06/18 05:41 07/06/18 05:50 07/06/18 06:00 Temperature Pulse Rate 53 L 53 L 53 L Respiratory Rate 11 L 15 18 Blood Pressure 106/55 L 96/50 L 93/54 L Pulse Oximetry 100 98 100 07/06/18 06:10 07/06/18 06:20 07/06/18 06:30 Temperature Pulse Rate 54 L 54 L 54 L Respiratory Rate 15 17 8 L Blood Pressure 95/50 L 96/50 L 90/55 L Pulse Oximetry 97 98 99 07/06/18 06:40 07/06/18 06:47 07/06/18 06:51 Temperature Pulse Rate 53 L 56 L 54 L Respiratory Rate 12 20 16 Blood Pressure 88/49 L 91/54 L 104/51 L Pulse Oximetry 99 99 98 07/06/18 07:00 07/06/18 07:11 07/06/18 07:21 Temperature Pulse Rate 54 L 55 L 55 L Respiratory Rate 14 31 H 22 Blood Pressure 106/53 L 132/60 105/57 L Pulse Oximetry 99 99 100 07/06/18 07:30 07/06/18 07:40 07/06/18 07:50 Temperature Pulse Rate 55 L 55 L 54 L Respiratory Rate 20 20 18 Blood Pressure 108/59 L 113/58 L 108/58 L Pulse Oximetry 100 99 100 07/06/18 07:51 07/06/18 08:00 07/06/18 08:10 Temperature 98.0 F Pulse Rate 54 L 54 L 54 L Respiratory Rate 18 17 18 Blood Pressure 112/62 111/53 L Pulse Oximetry 100 100 100 07/06/18 08:20 07/06/18 08:30 07/06/18 08:40 Temperature Pulse Rate 54 L 53 L 54 L Respiratory Rate 18 18 19 Blood Pressure 116/58 L 117/55 L 104/57 L Pulse Oximetry 100 100 100 07/06/18 08:50 07/06/18 09:00 07/06/18 09:10 Temperature Pulse Rate 54 L 54 L 54 L Respiratory Rate 18 18 18 Blood Pressure 109/59 L 109/55 L 109/55 L Pulse Oximetry 100 100 100 07/06/18 09:20 07/06/18 09:30 07/06/18 09:40 Temperature Pulse Rate 54 L 53 L 54 L Respiratory Rate 19 18 18 Blood Pressure 105/56 L 116/58 L 118/58 L Pulse Oximetry 100 100 100 07/06/18 09:50 07/06/18 10:00 07/06/18 10:10 Temperature Pulse Rate 54 L 55 L 54 L Respiratory Rate 18 25 H 18 Blood Pressure 117/58 L 122/57 L 113/56 L Pulse Oximetry 100 100 100 07/06/18 10:20 07/06/18 10:31 07/06/18 10:50 Temperature Pulse Rate 54 L 56 L 54 L Respiratory Rate 18 19 18 Blood Pressure 111/57 L 94/52 L 115/59 L Pulse Oximetry 100 96 98 07/06/18 11:00 07/06/18 11:10 07/06/18 11:20 Temperature Pulse Rate 53 L 53 L 54 L Respiratory Rate 18 18 18 Blood Pressure 126/57 L 118/59 L 105/52 L Pulse Oximetry 100 100 92 L 07/06/18 11:30 07/06/18 11:35 07/06/18 11:40 Temperature Pulse Rate 52 L 53 L 54 L Respiratory Rate 18 18 18 Blood Pressure 111/58 L 114/57 L Pulse Oximetry 99 98 100 07/06/18 11:50 07/06/18 12:00 07/06/18 12:10 Temperature 98.4 F Pulse Rate 53 L 53 L 53 L Respiratory Rate 18 18 18 Blood Pressure 113/54 L 110/57 L 118/55 L Pulse Oximetry 95 96 98 07/06/18 12:20 07/06/18 12:30 07/06/18 12:40 Temperature Pulse Rate 53 L 53 L 52 L Respiratory Rate 18 21 22 Blood Pressure 112/58 L 111/58 L 110/58 L Pulse Oximetry 97 96 97 07/06/18 12:50 07/06/18 13:00 07/06/18 13:10 Temperature Pulse Rate 54 L 52 L 52 L Respiratory Rate 19 18 17 Blood Pressure 110/54 L 117/58 L 110/55 L Pulse Oximetry 92 L 96 95 07/06/18 13:20 07/06/18 13:30 07/06/18 13:40 Temperature Pulse Rate 52 L 52 L 52 L Respiratory Rate 18 18 19 Blood Pressure 118/55 L 107/56 L 109/59 L Pulse Oximetry 96 96 96 07/06/18 13:50 07/06/18 14:00 07/06/18 14:11 Temperature Pulse Rate 51 L 51 L 51 L Respiratory Rate 18 18 23 Blood Pressure 105/57 L 114/57 L 113/55 L Pulse Oximetry 98 97 97 07/06/18 14:20 07/06/18 14:30 07/06/18 14:40 Temperature Pulse Rate 52 L 51 L 51 L Respiratory Rate 20 18 19 Blood Pressure 103/54 L 108/59 L 108/60 Pulse Oximetry 94 L 96 95 07/06/18 14:50 07/06/18 15:00 07/06/18 15:10 Temperature Pulse Rate 51 L 50 L 50 L Respiratory Rate 19 18 10 L Blood Pressure 105/56 L 127/61 121/58 L Pulse Oximetry 95 100 100 07/06/18 15:20 07/06/18 15:31 07/06/18 15:40 Temperature Pulse Rate 50 L 49 L 50 L Respiratory Rate 18 18 18 Blood Pressure 92/48 L 112/56 L 101/50 L Pulse Oximetry 98 100 91 L 07/06/18 15:50 07/06/18 16:00 Temperature 97.6 F Pulse Rate 49 L 48 L Respiratory Rate 18 20 Blood Pressure 99/50 L 97/60 L Pulse Oximetry 93 L 96 Intake & Output 07/05/18 07/06/18 07/06/18 18:59 06:59 18:59 Intake Total 240 / 240 250 / 250 1100 / 1100 Output Total 200 / 200 980 / 980 Balance 40 / 40 250 / 250 120 / 120 Weight 88 kg Intake: IV 240 / 240 250 / 250 1100 / 1100 Sodium Bicarbonate 8.4% Inj 50 50 / 50 ML @ 0 mls/hr .ROUTE .[facility] Rx#:[id number] NS Inj 1,000 ML @ 84 mls/hr IV. 1000 / 1000 CONT .[id number] Rx#:[id number] Flexbumin 25% Inj 100 ML @ 60 190 / 190 200 / 200 100 / 100 mls/hr IV.SIG Q8H [facility] Rx#: [id number] Levaquin 250 mg Premix Inj 250 50 / 50 mg In 50 ml @ 50 mls/hr IV.SIG Q24H [facility] Rx#:[id number] Oral 0 / 0 Output: Urine 200 / 200 Chest Tube Drainage 980 / 980 #1 Right Mid-Axillary Chest 980 / 980 Other: # Incontinent Voids 1 Date of Last Bowel Movement 07/05/18 07/05/18 07/05/18 # Bowel Movements 2 0 GENERAL: Elderly WF, on vent, sedated SKIN: Warm and dry. HEAD: Normocephalic. EYES: No scleral icterus. No injection or drainage. NECK: Supple, trachea midline. No JVD or lymphadenopathy. CARDIOVASCULAR: Regular rate and rhythm without murmurs, gallops, or rubs. RESPIRATORY: Breath sounds equal bilaterally. No accessory muscle use. Rt chest tube draining. GASTROINTESTINAL: Abdomen soft, non-tender, nondistended. MUSCULOSKELETAL: No cyanosis, or edema. BACK: Nontender without obvious deformity. No CVA tenderness. Assessment and Plan - Plan IMPRESSION: 1. Right lung infiltrate. 2. Right pleural effusion. 3. Dyspnea. 4. Diabetes mellitus. 5. Hypertension. 6. Renal insufficiency and chronic kidney disease. 7. CLL 8. S/P TIPS 9. Severe leucocytosis 10. Worsening renal functions, ? hepatorenal synd 11. VDRF PLAN: Vent support, PRVC AC 18, Fi02 40%, Sedation with Fentanyl Cont Abx per ID Aerosol nebs Heparin 5000 IU SQ q 12 hrs Supplement 02 to keep sat >90%
[2018-07-06] MEDS: Mirtazapine 15 MG Tablet PO SCH (20:04)
[2018-07-07] MEDS: Oral Hygiene Kit OROPHARYNG SCH ×4 (00:47→16:28)
[2018-07-07] MEDS: Insulin NovoLOG Aspart Correctional Sugar Inj SQ SCH ×4 (00:47→19:57)
[2018-07-07] MEDS: Albumin Human 25% Inj 100 ML IV.SIG SCH ×3 (02:59→18:05)
[2018-07-07] MEDS: Sod Chloride 0.9% Inj 1,000 ML IV.CONT SCH ×2 (04:31→18:07)
--- NOTE | 2018-07-07 04:51 | XR ---
EXAM DATE: 07/07/2018 4:43 AM EST AGE/SEX: 72 years / Female INDICATIONS: Respiratory distress. CLINICAL DATA: This is the patient's subsequent encounter. Patient reports that signs and symptoms h ave been present for 1 week and indicates a pain score of 0/10. MEDICAL/SURGICAL HISTORY: . Asthma. Diabetes. Hypertension. Leukemia. Thyroidectomy. COMPARISON: [facility] [place], CHEST 1V SINGLE AP, 07/06/2018. . FINDINGS: ET tube tip well above the james. Gastric tube traverses the [id number]. Consolidation in the lef t lower lung with loss of delineation of the entire left hemidiaphragm similar in severity to prior. There are new ill-defined airspace opacities in the central right lung which are partially obscured d ue to overlying tube junction. CONCLUSION: Persistent left lower lobe consolidation. New nonconsolidative infiltrates in the right perihilar reg ion. Electronically signed by: Caden Peralta MD Board Certified Radiologist 07/07/2018 4:50 AM EST
[2018-07-07] MEDS: Pantoprazole Inj 40 MG Vial IV.PUSH SCH (05:23)
[2018-07-07] MEDS: Octreotide Inj 50 MCG/ML Vial IV.PUSH SCH ×3 (05:24→23:24)
[2018-07-07] MEDS: Artificial Tears Opth Drops 15 ML Bottle EACH EYE SCH ×3 (05:24→20:59)
[2018-07-07] MEDS: Levothyroxine 150 MCG Tablet PO SCH (06:39)
[2018-07-07 06:52] LABS: Baso # (Auto) 0.1 th/mm3 (0.0-0.2); Baso % (Auto) 0.3 % (0.0-2.0); Eos # (Auto) 1.1 th/mm3 (0.0-0.4); Eos % (Auto) 2.6 % (0.0-4.0); Hematocrit 28.3 % (35.0-46.0); Hemoglobin 9.2 gm/dL (11.6-15.3); Lymph # (Auto) 29.7 th/mm3 (1.0-4.8); Mean Corpuscular HGB Conc 32.4 % (32.0-36.0); Mean Corpuscular Hemoglobin 30.6 pg (27.0-34.0); Mean Corpuscular Volume 94.3 fL (80.0-100.0); Mono # (Auto) 1.5 th/mm3 (0.0-0.9); Mono % (Auto) 3.5 % (0.0-8.0); Neut % (Auto) 23.6 % (16.0-70.0); Platelet Count 136 th/mm3 (150-450); Red Cell Distribution Width 16.8 % (11.6-17.2); White Blood Count 42.5 th/mm3 (4.0-11.0)
[2018-07-07 07:08] LABS: Alanine Aminotransferase 49 U/L (10-53); Aspartate Aminotransferase 197 U/L (15-37); Chloride 107 meq/L (98-107); Glucose,Random 120 mg/dL (74-106); Phosphorus 3.9 mg/dL (2.5-4.9); Potassium 4.6 meq/L (3.5-5.1); Sodium 141 meq/L (136-145)
[2018-07-07 07:13] LABS: Albumin 4.5 g/dL (3.4-5.0); Alkaline Phosphatase 136 U/L (45-117); Anion Gap 15 meq/L (5-15); Blood Urea Nitrogen 98 mg/dL (7-18); Calcium 8.4 mg/dL (8.5-10.1); Glomerular Filtration Rate 7 mL/min (>89); Total Protein 6.1 g/dL (6.4-8.2)
[2018-07-07 08:01] LABS: Eosinophils 3 % (0-4); Lymphocytes 69 % (9-44); Monocytes 3 % (0-8); Tallied Nucleated RBC 1 (0-0)
[2018-07-07 08:02] LABS: Ovalocytes 1+; Platelet Morphology Normal (Normal); Smudge Cells Present
[2018-07-07] MEDS: Allopurinol 100 MG Tablet PO SCH (09:16)
[2018-07-07] MEDS: Chlorhexidine 0.12% Oral Kit 15 ML UDC OROPHARYNG SCH ×2 (09:16→20:58)
[2018-07-07] MEDS: levoFLOXacin 250 MG Tablet PO SCH (09:16)
[2018-07-07] MEDS: Nadolol 20 MG Tablet PO SCH (09:18)
--- NOTE | 2018-07-07 10:29 | P.PNCC ---
Subjective Subjective Remarks/Hospital Course: This is a 72-year-old female. Admission 06/25/2008. Past medical history includes stage 0 CLL, asthma, diabetes, gout, hypertension and hypothyroidism. She initially presented to the hospital complaining of a several month history of progressive shortness of breath. This is associated orthopnea and difficulty ambulation. A dry nonproductive cough as well. No chest pain. On admission, patient was noted to have moderate ascites and a significant right pleural effusion. She received paracentesis on 06/25 5700 cc and on 06/28 5900 cc. She had a right-sided thoracentesis 1200 cc on 06/25. CT abdomen pelvis showed likely liver cirrhosis and moderate ascites. She also had a CT of the abdomen and pelvis which did not show any lymphadenopathy. She has not been febrile. She has had thoracentesis and they took out 1.2 L of fluid. 06/28 had an upper endoscopy. EGD revealed esophagitis, distal esophageal ulcer, portal hypertensive gastropathy. She started worsening renal failure and worsening leukocytosis. Due to the possibility of hepatorenal syndrome a TIPS was performed by IR 07/01. She has been on beta-ilana, diuretics and midodrine in the interim along with octreotide. Patient been pancultured which no growth today. Current levofloxacin and metronidazole. No obvious source of infection at the present time. The past couple nights patient is been in ICU. She is become more confused and will not keep her BiPAP on due to agitation. She is received 2 stenosis of lorazepam tonight. I was asked to see the patient due to worsening respiratory issues including tachypnea and altered mental status including unresponsive. PH is 7.35. PCO2 47. PO2 74. Base index -6. She is on a nonrebreather. She is intubated using 20 mg etomidate and 8.0 ET tube at 23 cm at lip. They were unable to pass an NG tube.. 07/07/18: Remains intubated sedated. Renal function is worsening creatinine close to 6 now. Remains anuric. Large right pleural effusion drained yesterday 1.4 L since pigtail chest tube placement. Currently sedated with fentanyl will wake up follows some commands Objective Vital Signs / I&O: Vital Signs 07/06/18 10:31 07/06/18 10:50 07/06/18 11:00 Temperature Pulse Rate 56 L 54 L 53 L Respiratory Rate 19 18 18 Blood Pressure 94/52 L 115/59 L 126/57 L Pulse Oximetry 96 98 100 07/06/18 11:10 07/06/18 11:20 07/06/18 11:30 Temperature Pulse Rate 53 L 54 L 52 L Respiratory Rate 18 18 18 Blood Pressure 118/59 L 105/52 L 111/58 L Pulse Oximetry 100 92 L 99 07/06/18 11:35 07/06/18 11:40 07/06/18 11:50 Temperature Pulse Rate 53 L 54 L 53 L Respiratory Rate 18 18 18 Blood Pressure 114/57 L 113/54 L Pulse Oximetry 98 100 95 07/06/18 12:00 07/06/18 12:10 07/06/18 12:20 Temperature 98.4 F Pulse Rate 53 L 53 L 53 L Respiratory Rate 18 18 18 Blood Pressure 110/57 L 118/55 L 112/58 L Pulse Oximetry 96 98 97 07/06/18 12:30 07/06/18 12:40 07/06/18 12:50 Temperature Pulse Rate 53 L 52 L 54 L Respiratory Rate 21 22 19 Blood Pressure 111/58 L 110/58 L 110/54 L Pulse Oximetry 96 97 92 L 07/06/18 13:00 07/06/18 13:10 07/06/18 13:20 Temperature Pulse Rate 52 L 52 L 52 L Respiratory Rate 18 17 18 Blood Pressure 117/58 L 110/55 L 118/55 L Pulse Oximetry 96 95 96 07/06/18 13:30 07/06/18 13:40 07/06/18 13:50 Temperature Pulse Rate 52 L 52 L 51 L Respiratory Rate 18 19 18 Blood Pressure 107/56 L 109/59 L 105/57 L Pulse Oximetry 96 96 98 07/06/18 14:00 07/06/18 14:11 07/06/18 14:20 Temperature Pulse Rate 51 L 51 L 52 L Respiratory Rate 18 23 20 Blood Pressure 114/57 L 113/55 L 103/54 L Pulse Oximetry 97 97 94 L 07/06/18 14:30 07/06/18 14:40 07/06/18 14:50 Temperature Pulse Rate 51 L 51 L 51 L Respiratory Rate 18 19 19 Blood Pressure 108/59 L 108/60 105/56 L Pulse Oximetry 96 95 95 07/06/18 15:00 07/06/18 15:10 18 15:20 Temperature Pulse Rate 50 L 50 L 50 L Respiratory Rate 18 10 L 18 Blood Pressure 127/61 121/58 L 92/48 L Pulse Oximetry 100 100 98 07/06/18 15:31 18 15:40 18 15:50 Temperature Pulse Rate 49 L 50 L 49 L Respiratory Rate 18 18 18 Blood Pressure 112/56 L 101/50 L 99/50 L Pulse Oximetry 100 91 L 93 L 07/06/18 16:00 07/06/18 16:31 07/06/18 16:40 Temperature 97.6 F Pulse Rate 48 L 48 L Respiratory Rate 20 19 Blood Pressure 97/60 L 100/51 L 99/56 L Pulse Oximetry 96 96 07/06/18 16:50 07/06/18 17:00 18 17:10 Temperature Pulse Rate 49 L 48 L 48 L Respiratory Rate 20 20 19 Blood Pressure 99/61 L 102/51 L 102/54 L Pulse Oximetry 97 97 96 07/06/18 17:20 07/06/18 17:31 18 17:40 Temperature Pulse Rate 48 L 47 L 48 L Respiratory Rate 18 19 18 Blood Pressure 106/54 L 114/54 L 103/53 L Pulse Oximetry 97 97 97 07/06/18 17:50 07/06/18 18:00 18 18:10 Temperature Pulse Rate 47 L 48 L 48 L Respiratory Rate 18 18 18 Blood Pressure 102/55 L 97/54 L 92/53 L Pulse Oximetry 96 93 L 92 L 07/06/18 18:20 07/06/18 18:30 18 18:40 Temperature Pulse Rate 47 L 47 L 47 L Respiratory Rate 18 18 18 Blood Pressure 99/54 L 110/55 L 105/54 L Pulse Oximetry 95 95 95 07/06/18 18:50 07/06/18 19:00 07/06/18 19:01 Temperature Pulse Rate 47 L 48 L 48 L Respiratory Rate 18 18 18 Blood Pressure 113/57 L 137/58 L Pulse Oximetry 95 95 94 L 07/06/18 19:11 07/06/18 19:21 07/06/18 19:31 Temperature Pulse Rate 47 L 47 L 47 L Respiratory Rate 18 18 18 Blood Pressure 108/52 L 95/52 L 115/56 L Pulse Oximetry 96 94 L 95 07/06/18 19:40 07/06/18 19:50 07/06/18 20:00 Temperature 98.5 F Pulse Rate 47 L 47 L 48 L Respiratory Rate 18 18 18 Blood Pressure 113/56 L 106/53 L 114/56 L Pulse Oximetry 95 94 L 94 L 07/06/18 20:10 07/06/18 20:20 07/06/18 20:30 Temperature Pulse Rate 47 L 47 L 47 L Respiratory Rate 18 18 18 Blood Pressure 105/58 L 108/56 L 110/56 L Pulse Oximetry 95 95 96 07/06/18 20:36 07/06/18 21:00 07/06/18 21:02 Temperature Pulse Rate 47 L 48 L 94 H Respiratory Rate 19 19 22 Blood Pressure 121/88 Pulse Oximetry 90 L 95 96 07/06/18 21:31 07/06/18 22:00 07/06/18 22:01 Temperature Pulse Rate 49 L 49 L 49 L Respiratory Rate 20 18 23 Blood Pressure 125/77 114/75 Pulse Oximetry 96 98 98 07/06/18 22:36 07/06/18 23:00 07/06/18 23:06 Temperature Pulse Rate 48 L 48 L 48 L Respiratory Rate 19 19 18 Blood Pressure 129/60 120/59 L Pulse Oximetry 99 99 99 07/06/18 23:30 07/06/18 23:45 07/07/18 00:00 Temperature Pulse Rate 48 L 47 L 47 L Respiratory Rate 18 18 19 Blood Pressure 115/55 L 128/60 Pulse Oximetry 99 99 100 07/07/18 00:31 07/07/18 01:00 07/07/18 01:01 Temperature 98.4 F Pulse Rate 48 L 47 L 47 L Respiratory Rate 22 18 18 Blood Pressure 106/52 L 126/60 Pulse Oximetry 91 L 97 98 07/07/18 01:30 07/07/18 02:00 07/07/18 02:02 Temperature Pulse Rate 46 L 67 191 H Respiratory Rate 18 20 24 Blood Pressure 129/58 L 105/60 Pulse Oximetry 98 99 94 L 07/07/18 02:34 07/07/18 03:00 07/07/18 03:47 Temperature Pulse Rate 46 L 45 L 53 L Respiratory Rate 18 18 18 Blood Pressure 110/58 L 114/54 L Pulse Oximetry 95 98 98 07/07/18 04:00 07/07/18 07:51 07/07/18 07:52 Temperature 98.1 F Pulse Rate 74 80 Respiratory Rate 18 Blood Pressure 121/56 L Pulse Oximetry 91 L 92 L Intake & Output 07/06/18 07/07/18 07/07/18 18:59 06:59 18:59 Intake Total 1100 / 1100 1200 / 1200 Output Total 980 / 980 400 / 400 Balance 120 / 120 800 / 800 Weight 85 kg Intake: IV 1100 / 1100 1200 / 1200 NS Inj 1,000 ML @ 84 mls/hr IV. 1000 / 1000 1000 / 1000 CONT .[id number] [facility] Rx#:[id number] Flexbumin 25% Inj 100 ML @ 60 100 / 100 200 / 200 mls/hr IV.SIG Q8H [facility] Rx#: [id number] Oral 0 / 0 Output: Chest Tube Drainage 980 / 980 400 / 400 #1 Right Mid-Axillary Chest 980 / 980 400 / 400 Other: # Incontinent Voids 1 Date of Last Bowel Movement 07/05/18 07/05/18 # Bowel Movements 0 Result Diagrams: 07/07/18 04:24 07/07/18 04:24 Assessment and Plan - Assessment and Plan Plan: Neuro/Psych: Acute encephalopathy likely secondary to CO2 retention Currently on propofol/fentanyl drips for sedation/analgesia while intubated. Currently only on fentanyl Goal of RA SS -1. Daily sedation vacation Ammonia level <10 CT brain 06/25 revealed no acute intracranial findings On lightening sedation patient continues to follow commands intermittently CV: Essential hypertension Currently on nadolol 20 mg daily, furosemide 20 mg IV twice daily and midodrine 10 mg 3 times daily Increase Lasix to 60 mg IV every 6 hours Discontinue normal saline at 84 cc an hour Echocardiogram -EF 55-60%. Normal LV systolic function. Trace mitral valve regurgitation. Mitral annular calcification is present. Cannot rule out a small mobile echodensity on the left ventricular side of the anterior leaflet towards the left ventricular outflow tract in parasternal views. Clinical correlation recommended There is trace tricuspid valve regurgitation. The estimated pulmonary arterial pressure is 38 mmHg. Blood cultures have been negative Resp: Acute hypoxemic respiratory failure Right pleural effusion status post thoracentesis 06/25 -1200 cc PRVC ventilation. Head of bed at 30 degrees Ventilator bundle. Albuterol/ipratropium aerosols every 4 hours with albuterol every 2 hours as needed dyspnea Follow postintubation chest x-ray and ABG Right pigtail chest tube placed yesterday 07/06/2018, with 1.4 L drained Evaluate left pleural effusion with ultrasound GI: Portal hypertensive gastropathy LA class B esophagitis Distal esophageal ulcer Ascites -paracentesis 5700 cc 06/25. 5900 cc 06/28 Status post TIPS 07/01 for possible hepatorenal syndrome CT abdomen/pelvis 06/25 revealed cirrhotic type liver. Left-sided hydronephrosis. Moderate ascites EGD 06/28 revealed LA class B esophagitis. 7 mm distal esophageal ulcer. Portal hypertensive gastropathy. H. pylori negative. Increase Lasix to 60 mg every 6 hours continue, Aldactone and Midodrine. These have been started Pantoprazole 40 mg IV daily. On octreotide 50 mcg IV every 8 hours for portal hypertension gastropathy Actually being followed by GI. Negative CA-19-9, alpha-fetoprotein, beta-hCG. Negative hepatitis panel Endo: Diabetes mellitus Hypothyroidism Gout Sliding scale insulin Accu-Cheks to maintain euglycemia/low every 6 hours aspart insulin Holding glipizide 5 mg daily/home medication Patient is on levothyroxine 300 mcg daily. Check TSH Patient is on allopurinol at home. Restarted 100 mg daily/renally dosed Renal: Acute kidney failure I discussed with patient's he wants to pursue dialysis if needed Monitor urine output. Accurate I's and O's. I have increase Lasix to 60 mg IV every 6 hours If no response probably will start hemodialysis will discuss with nephrology Madsen catheter be placed for accurate I's and O's in a critical patient Avoid nephrotoxic medication No hydronephrosis on CT abdomen/pelvis on admission Nephrology is actively following. Follow BMP Heme: CLL [id number] score 0 Leukocytosis Normocytic anemia Followed by Dr. Flores/oncology Follow-up on coags, CBC this a.m. Currently no indication for transfusion of blood products at this time. ID: Followed by infectious disease. Currently levofloxacin and metronidazole Peritoneal and pleural fluid 06/25 no growth today. F/U blood cultures x2, sputum, UA and influenza a and B now Access-utilize peripheral IV. Central line if indicated Prophylaxis -GI -pantoprazole -DVT -SCDs/heparin subcu Consult 35 minutes critical care time
--- NOTE | 2018-07-07 14:16 | P.PNNP ---
Subjective Interval history: Patient was seen, no distress, sedated. Renal function has continued to decline. Patient's was at bedside, stated he wants to pursue dialysis if needed. Chest x-ray showed right pleural effusion, patient has chest tube, 1.4 L drained since yesterday. Patient had abdominal x-ray yesterday for Dobhoff tube placement. <UlyssesMaddieciro - Last Filed: 07/07/18 14:17> Physical Exam Vital signs: Vital Signs 07/06/18 14:20 07/06/18 14:30 07/06/18 14:40 Temperature Pulse Rate 52 L 51 L 51 L Respiratory Rate 20 18 19 Blood Pressure 103/54 L 108/59 L 108/60 Pulse Oximetry 94 L 96 95 07/06/18 14:50 07/06/18 15:00 07/06/18 15:10 Temperature Pulse Rate 51 L 50 L 50 L Respiratory Rate 19 18 10 L Blood Pressure 105/56 L 127/61 121/58 L Pulse Oximetry 95 100 100 07/06/18 15:20 07/06/18 15:31 07/06/18 15:40 Temperature Pulse Rate 50 L 49 L 50 L Respiratory Rate 18 18 18 Blood Pressure 92/48 L 112/56 L 101/50 L Pulse Oximetry 98 100 91 L 07/06/18 15:50 07/06/18 16:00 07/06/18 16:31 Temperature 97.6 F Pulse Rate 49 L 48 L Respiratory Rate 18 20 Blood Pressure 99/50 L 97/60 L 100/51 L Pulse Oximetry 93 L 96 07/06/18 16:40 07/06/18 16:50 07/06/18 17:00 Temperature Pulse Rate 48 L 49 L 48 L Respiratory Rate 19 20 20 Blood Pressure 99/56 L 99/61 L 102/51 L Pulse Oximetry 96 97 97 07/06/18 17:10 07/06/18 17:20 07/06/18 17:31 Temperature Pulse Rate 48 L 48 L 47 L Respiratory Rate 19 18 19 Blood Pressure 102/54 L 106/54 L 114/54 L Pulse Oximetry 96 97 97 07/06/18 17:40 07/06/18 17:50 07/06/18 18:00 Temperature Pulse Rate 48 L 47 L 48 L Respiratory Rate 18 18 18 Blood Pressure 103/53 L 102/55 L 97/54 L Pulse Oximetry 97 96 93 L 07/06/18 18:10 07/06/18 18:20 07/06/18 18:30 Temperature Pulse Rate 48 L 47 L 47 L Respiratory Rate 18 18 18 Blood Pressure 92/53 L 99/54 L 110/55 L Pulse Oximetry 92 L 95 95 07/06/18 18:40 07/06/18 18:50 07/06/18 19:00 Temperature Pulse Rate 47 L 47 L 48 L Respiratory Rate 18 18 18 Blood Pressure 105/54 L 113/57 L Pulse Oximetry 95 95 95 07/06/18 19:01 07/06/18 19:11 07/06/18 19:21 Temperature Pulse Rate 48 L 47 L 47 L Respiratory Rate 18 18 18 Blood Pressure 137/58 L 108/52 L 95/52 L Pulse Oximetry 94 L 96 94 L 07/06/18 19:31 07/06/18 19:40 07/06/18 19:50 Temperature Pulse Rate 47 L 47 L 47 L Respiratory Rate 18 18 18 Blood Pressure 115/56 L 113/56 L 106/53 L Pulse Oximetry 95 95 94 L 07/06/18 20:00 07/06/18 20:10 07/06/18 20:20 Temperature 98.5 F Pulse Rate 48 L 47 L 47 L Respiratory Rate 18 18 18 Blood Pressure 114/56 L 105/58 L 108/56 L Pulse Oximetry 94 L 95 95 07/06/18 20:30 07/06/18 20:36 07/06/18 21:00 Temperature Pulse Rate 47 L 47 L 48 L Respiratory Rate 18 19 19 Blood Pressure 110/56 L Pulse Oximetry 96 90 L 95 07/06/18 21:02 07/06/18 21:31 07/06/18 22:00 Temperature Pulse Rate 94 H 49 L 49 L Respiratory Rate 22 20 18 Blood Pressure 121/88 125/77 Pulse Oximetry 96 96 98 07/06/18 22:01 07/06/18 22:36 07/06/18 23:00 Temperature Pulse Rate 49 L 48 L 48 L Respiratory Rate 23 19 19 Blood Pressure 114/75 129/60 Pulse Oximetry 98 99 99 07/06/18 23:06 07/06/18 23:30 07/06/18 23:45 Temperature Pulse Rate 48 L 48 L 47 L Respiratory Rate 18 18 18 Blood Pressure 120/59 L 115/55 L Pulse Oximetry 99 99 99 07/07/18 00:00 07/07/18 00:31 07/07/18 01:00 Temperature 98.4 F Pulse Rate 47 L 48 L 47 L Respiratory Rate 19 22 18 Blood Pressure 128/60 106/52 L Pulse Oximetry 100 91 L 97 07/07/18 01:01 07/07/18 01:30 07/07/18 02:00 Temperature Pulse Rate 47 L 46 L 67 Respiratory Rate 18 18 20 Blood Pressure 126/60 129/58 L Pulse Oximetry 98 98 99 07/07/18 02:02 07/07/18 02:34 07/07/18 03:00 Temperature Pulse Rate 191 H 46 L 45 L Respiratory Rate 24 18 18 Blood Pressure 105/60 110/58 L 114/54 L Pulse Oximetry 94 L 95 98 07/07/18 03:47 07/07/18 04:00 07/07/18 07:51 Temperature 98.1 F Pulse Rate 53 L 74 80 Respiratory Rate 18 18 18 Blood Pressure 121/56 L Pulse Oximetry 98 91 L 07/07/18 07:52 07/07/18 08:00 07/07/18 11:47 Temperature 98.3 F Pulse Rate 44 L 70 Respiratory Rate 18 18 18 Blood Pressure 112/58 L Pulse Oximetry 92 L 95 07/07/18 11:48 07/07/18 12:00 Temperature 98.2 F Pulse Rate 44 L Respiratory Rate 18 18 Blood Pressure 126/61 Pulse Oximetry 97 97 Intake & Output 07/06/18 07/07/18 07/07/18 18:59 06:59 18:59 Intake Total 1100 / 1100 1200 / 1200 Output Total 980 / 980 400 / 400 Balance 120 / 120 800 / 800 Weight 85 kg Intake: IV 1100 / 1100 1200 / 1200 NS Inj 1,000 ML @ 84 mls/hr IV. 1000 / 1000 1000 / 1000 CONT .[id number] [facility] Rx#:[id number] Flexbumin 25% Inj 100 ML @ 60 100 / 100 200 / 200 mls/hr IV.SIG Q8H [facility] Rx#: [id number] Oral 0 / 0 Output: Chest Tube Drainage 980 / 980 400 / 400 #1 Right Mid-Axillary Chest 980 / 980 400 / 400 Other: # Incontinent Voids 1 Date of Last Bowel Movement 07/05/18 07/05/18 07/05/18 # Bowel Movements 0 Narrative: GENERAL: Chronically ill appearing. SKIN: Pale. CARDIOVASCULAR: Regular rate and rhythm. RESPIRATORY: Decreased breath sounds. Orally intubated. Chest tube in place. ABDOMEN: Distended. NEUROLOGICAL: On sedation, not responsive. PSYCHIATRIC: Unable to access. <UlyssesDes - Last Filed: 07/07/18 14:17> Vital signs: Vital Signs 07/06/18 22:36 07/06/18 23:00 07/06/18 23:06 Temperature Pulse Rate 48 L 48 L 48 L Respiratory Rate 19 19 18 Blood Pressure 129/60 120/59 L Pulse Oximetry 99 99 99 07/06/18 23:30 07/06/18 23:45 07/07/18 00:00 Temperature Pulse Rate 48 L 47 L 47 L Respiratory Rate 18 18 19 Blood Pressure 115/55 L 128/60 Pulse Oximetry 99 99 100 07/07/18 00:31 07/07/18 01:00 07/07/18 01:01 Temperature 98.4 F Pulse Rate 48 L 47 L 47 L Respiratory Rate 22 18 18 Blood Pressure 106/52 L 126/60 Pulse Oximetry 91 L 97 98 07/07/18 01:30 07/07/18 02:00 07/07/18 02:02 Temperature Pulse Rate 46 L 67 191 H Respiratory Rate 18 20 24 Blood Pressure 129/58 L 105/60 Pulse Oximetry 98 99 94 L 07/07/18 02:34 07/07/18 03:00 07/07/18 03:47 Temperature Pulse Rate 46 L 45 L 53 L Respiratory Rate 18 18 18 Blood Pressure 110/58 L 114/54 L Pulse Oximetry 95 98 98 07/07/18 04:00 07/07/18 07:51 07/07/18 07:52 Temperature 98.1 F Pulse Rate 74 80 Respiratory Rate 18 18 18 Blood Pressure 121/56 L Pulse Oximetry 91 L 92 L 07/07/18 08:00 07/07/18 11:47 07/07/18 11:48 Temperature 98.3 F Pulse Rate 44 L 70 Respiratory Rate 18 18 18 Blood Pressure 112/58 L Pulse Oximetry 95 97 07/07/18 12:00 07/07/18 15:50 07/07/18 15:51 Temperature 98.2 F Pulse Rate 44 L 50 L Respiratory Rate 18 18 18 Blood Pressure 126/61 Pulse Oximetry 97 98 07/07/18 16:00 07/07/18 19:55 Temperature 98.9 F Pulse Rate 42 L 42 L Respiratory Rate 18 18 Blood Pressure 88/52 L Pulse Oximetry 99 97 Intake & Output 07/07/18 07/07/18 07/08/18 06:59 18:59 06:59 Intake Total 1200 / 1200 1350 / 1350 100 / 100 Output Total 400 / 400 950 / 950 Balance 800 / 800 400 / 400 100 / 100 Weight 85 kg Intake: IV 1200 / 1200 1350 / 1350 100 / 100 NS Inj 1,000 ML @ 84 mls/hr IV. 1000 / 1000 1000 / 1000 CONT .[id number] [facility] Rx#:[id number] Flexbumin 25% Inj 100 ML @ 60 200 / 200 100 / 100 100 / 100 mls/hr IV.SIG Q8H [facility] Rx#: [id number] fentaNYL 10 mcg/mL Premix Drip 250 / 250 2,500 mcg In 250 ml @ 50 MCG/HR 5 mls/hr IV.SIG TITRATE PRN Rx #:[id number] Oral 0 / 0 0 / 0 Output: Urine Amount (Catheter) 550 / 550 Straight 550 / 550 Chest Tube Drainage 400 / 400 400 / 400 #1 Right Mid-Axillary Chest 400 / 400 400 / 400 Other: # Incontinent Voids 1 Date of Last Bowel Movement 07/05/18 07/05/18 # Bowel Movements 0 0 <Papi Busby - Last Filed: 07/07/18 22:22> Assessment and Plan - Assessment (1) Acute on chronic kidney failure Code(s): N17.9 - Acute kidney failure, unspecified; N18.9 - Chronic kidney disease, unspecified Status: Acute Plan: Patient has chronic kidney disease and possibly has ATN. Patient's renal function continues to decline. Patient is oliguric. 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 Patient is not a good candidate for dialysis, however wants to pursue dialysis if needed. Monitor urine output. Patient started on Lasix today. Poor prognosis. (2) Diabetes Code(s): E11.9 - Type 2 diabetes mellitus without complications Status: Acute Plan: Insulin coverage to maintain glucose levels between 140 and 180. (3) Abdominal distension Code(s): R14.0 - Abdominal distension (gaseous) Status: Acute Plan: s/p paracentesis x2. - Plan S/P TIPS procedure 07/01/18 Chest x-ray showed right pleural effusion, 1.4 L drained since yesterday, patient has chest tube. <Des Arora - Last Filed: 07/07/18 14:17> - Assessment (1) Acute on chronic kidney failure Code(s): N17.9 - Acute kidney failure, unspecified; N18.9 - Chronic kidney disease, unspecified Status: Acute (2) Diabetes Code(s): E11.9 - Type 2 diabetes mellitus without complications Status: Acute (3) Abdominal distension Code(s): R14.0 - Abdominal distension (gaseous) Status: Acute - Attending Attestation patient was seen and examined. Had chest tube placed. Very poor prognosis. There is a good likelihood that we are dealing with HRS. Would not recommend initiating dialysis. <Papi Busby - Last Filed: 07/07/18 22:22>
--- NOTE | 2018-07-07 15:11 | P.PNID ---
Subjective Remarks: Patient is a 72-year-old female presented to the hospital complaining of shortness of breath. She has had problem with shortness of breath over the last several months, but it has progressively worsened that she has difficulty ambulating. She gets orthopnea. She occasionally has cough but no phlegm. Denies any chest pain. She admits to some intermittent low-grade fevers. It was also noted that her abdomen has been more distended. On evaluation she was found to have pleural effusions as well as ascites and liver cirrhosis on ultrasound. She also had a CT of the abdomen and pelvis which did not show any lymphadenopathy. She has not been febrile. She has had thoracentesis and they took out 1.2 L of fluid. Paracentesis and they took out 5.7 L of ascites. Since admission she has had leukocytosis of 20,000 and higher. 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 She has not required any treatment for her CLL. Patient currently she has had upper endoscopy. She has had some diarrhea. She is noted increased abdominal girth again. Patient also has had increasing creatinine, and her urine output has been decreasing. Stool for C. difficile is negative. I do not have a urinalysis. Her initial chest x-ray on admission showing a right base infiltrate and effusion. Her last chest x-ray after she has had thoracenteses showed hypoaeration, with no infiltrates seen. Patient has been on Rocephin since admission. Infectious disease consultation has been requested to assist with evaluation and treatment of leukocytosis. Notes reviewed D/W RN On the vent, FiO2 0.4 Creatinine rising, UO low WBC same at 42K C/S negative so far CXR looks same Pigtail cath placed on her R chest ' BP ok Temps ok Had TIPS procedure 07/01 Antibiotics: Levaquin Flagyl Lines: PIV Past Medical History: Asthma Diabetes Gout Hypertension Leukemia H/O foot surgery H/O thyroidectomy Allergies/Adverse Reactions: Allergies No Known Allergies Allergy (Verified 06/25/18 05:25) Objective Vital Signs 07/06/18 15:10 07/06/18 15:20 07/06/18 15:31 Temperature Pulse Rate 50 L 50 L 49 L Respiratory Rate 10 L 18 18 Blood Pressure 121/58 L 92/48 L 112/56 L Pulse Oximetry 100 98 100 07/06/18 15:40 07/06/18 15:50 07/06/18 16:00 Temperature 97.6 F Pulse Rate 50 L 49 L 48 L Respiratory Rate 18 18 20 Blood Pressure 101/50 L 99/50 L 97/60 L Pulse Oximetry 91 L 93 L 96 07/06/18 16:31 07/06/18 16:40 07/06/18 16:50 Temperature Pulse Rate 48 L 49 L Respiratory Rate 19 20 Blood Pressure 100/51 L 99/56 L 99/61 L Pulse Oximetry 96 97 07/06/18 17:00 07/06/18 17:10 07/06/18 17:20 Temperature Pulse Rate 48 L 48 L 48 L Respiratory Rate 20 19 18 Blood Pressure 102/51 L 102/54 L 106/54 L Pulse Oximetry 97 96 97 07/06/18 17:31 07/06/18 17:40 07/06/18 17:50 Temperature Pulse Rate 47 L 48 L 47 L Respiratory Rate 19 18 18 Blood Pressure 114/54 L 103/53 L 102/55 L Pulse Oximetry 97 97 96 07/06/18 18:00 07/06/18 18:10 07/06/18 18:20 Temperature Pulse Rate 48 L 48 L 47 L Respiratory Rate 18 18 18 Blood Pressure 97/54 L 92/53 L 99/54 L Pulse Oximetry 93 L 92 L 95 07/06/18 18:30 07/06/18 18:40 07/06/18 18:50 Temperature Pulse Rate 47 L 47 L 47 L Respiratory Rate 18 18 18 Blood Pressure 110/55 L 105/54 L 113/57 L Pulse Oximetry 95 95 95 07/06/18 19:00 07/06/18 19:01 07/06/18 19:11 Temperature Pulse Rate 48 L 48 L 47 L Respiratory Rate 18 18 18 Blood Pressure 137/58 L 108/52 L Pulse Oximetry 95 94 L 96 07/06/18 19:21 07/06/18 19:31 07/06/18 19:40 Temperature Pulse Rate 47 L 47 L 47 L Respiratory Rate 18 18 18 Blood Pressure 95/52 L 115/56 L 113/56 L Pulse Oximetry 94 L 95 95 07/06/18 19:50 07/06/18 20:00 07/06/18 20:10 Temperature 98.5 F Pulse Rate 47 L 48 L 47 L Respiratory Rate 18 18 18 Blood Pressure 106/53 L 114/56 L 105/58 L Pulse Oximetry 94 L 94 L 95 07/06/18 20:20 07/06/18 20:30 07/06/18 20:36 Temperature Pulse Rate 47 L 47 L 47 L Respiratory Rate 18 18 19 Blood Pressure 108/56 L 110/56 L Pulse Oximetry 95 96 90 L 07/06/18 21:00 07/06/18 21:02 07/06/18 21:31 Temperature Pulse Rate 48 L 94 H 49 L Respiratory Rate 19 22 20 Blood Pressure 121/88 125/77 Pulse Oximetry 95 96 96 07/06/18 22:00 07/06/18 22:01 07/06/18 22:36 Temperature Pulse Rate 49 L 49 L 48 L Respiratory Rate 18 23 19 Blood Pressure 114/75 129/60 Pulse Oximetry 98 98 99 07/06/18 23:00 07/06/18 23:06 07/06/18 23:30 Temperature Pulse Rate 48 L 48 L 48 L Respiratory Rate 19 18 18 Blood Pressure 120/59 L 115/55 L Pulse Oximetry 99 99 99 07/06/18 23:45 07/07/18 00:00 07/07/18 00:31 Temperature 98.4 F Pulse Rate 47 L 47 L 48 L Respiratory Rate 18 19 22 Blood Pressure 128/60 106/52 L Pulse Oximetry 99 100 91 L 07/07/18 01:00 07/07/18 01:01 07/07/18 01:30 Temperature Pulse Rate 47 L 47 L 46 L Respiratory Rate 18 18 18 Blood Pressure 126/60 129/58 L Pulse Oximetry 97 98 98 07/07/18 02:00 07/07/18 02:02 07/07/18 02:34 Temperature Pulse Rate 67 191 H 46 L Respiratory Rate 20 24 18 Blood Pressure 105/60 110/58 L Pulse Oximetry 99 94 L 95 07/07/18 03:00 07/07/18 03:47 07/07/18 04:00 Temperature 98.1 F Pulse Rate 45 L 53 L 74 Respiratory Rate 18 18 18 Blood Pressure 114/54 L 121/56 L Pulse Oximetry 98 98 91 L 07/07/18 07:51 07/07/18 07:52 07/07/18 08:00 Temperature 98.3 F Pulse Rate 80 44 L Respiratory Rate 18 18 18 Blood Pressure 112/58 L Pulse Oximetry 92 L 95 07/07/18 11:47 07/07/18 11:48 07/07/18 12:00 Temperature 98.2 F Pulse Rate 70 44 L Respiratory Rate 18 18 18 Blood Pressure 126/61 Pulse Oximetry 97 97 Intake & Output 07/06/18 07/07/18 07/07/18 18:59 06:59 18:59 Intake Total 1100 / 1100 1200 / 1200 Output Total 980 / 980 400 / 400 Balance 120 / 120 800 / 800 Weight 85 kg Intake: IV 1100 / 1100 1200 / 1200 NS Inj 1,000 ML @ 84 mls/hr IV. 1000 / 1000 1000 / 1000 CONT .[id number] [facility] Rx#:[id number] Flexbumin 25% Inj 100 ML @ 60 100 / 100 200 / 200 mls/hr IV.SIG Q8H [facility] Rx#: [id number] Oral 0 / 0 Output: Chest Tube Drainage 980 / 980 400 / 400 #1 Right Mid-Axillary Chest 980 / 980 400 / 400 Other: # Incontinent Voids 1 Date of Last Bowel Movement 07/05/18 07/05/18 07/05/18 # Bowel Movements 0 07/06/18 11:50 Sputum - Endotracheal Gram Stain - Final 07/06/18 11:50 Sputum - Endotracheal Sputum Culture - Preliminary Moderate growth normal respiratory yaneth at 24 hours 07/06/18 15:15 Fluid - Pleural fluid Gram Stain - Final 07/06/18 15:15 Fluid - Pleural fluid Body Fluid Culture - Preliminary No growth in 24 hours 07/06/18 05:15 Blood - Peripheral Aerobic Blood Culture - Preliminary No growth in 1 day 07/06/18 05:15 Blood - Peripheral Anaerobic Blood Culture - Preliminary No growth in 1 day 07/06/18 05:20 Blood - Peripheral Aerobic Blood Culture - Preliminary No growth in 1 day 07/06/18 05:20 Blood - Peripheral Anaerobic Blood Culture - Preliminary No growth in 1 day 07/06/18 15:15 Fluid - Pleural fluid Acid Fast Bacilli Smear - Pending 07/06/18 15:15 Fluid - Pleural fluid Mycobacterial Culture - Pending 07/06/18 15:15 Fluid - Pleural fluid Fungal Smear - Pending 07/06/18 15:15 Fluid - Pleural fluid Fungal Culture - Pending 07/06/18 08:10 Nasal Wash Influenza Types A,B Antigen - Final Negative for FLU A and B antigen Infection due to influenza A or B cannot be ruled out since the antigen present in the sample may be below the detection limit of the test. Lab - Hematology Results 07/06/18 07/07/18 04:24 04:24 WBC 42.7 H 42.5 H RBC 2.84 L 3.00 L Hgb 8.6 L 9.2 L Hct 26.6 L 28.3 L MCV 93.9 94.3 MCH 30.4 30.6 MCHC 32.3 32.4 RDW 16.7 16.8 Plt Count 158 D 136 L MPV 8.6 9.0 Prelim Diff (Auto) Slide review pending Slide review pending Neut % (Auto) 27.1 23.6 Lymph % (Auto) 69.5 H 70.0 H Guthrie % (Auto) 2.4 3.5 Eos % (Auto) 0.8 2.6 Baso % (Auto) 0.2 0.3 Neut # (Auto) 11.5 H 10.0 H Lymph # (Auto) 29.7 H 29.7 H Guthrie # (Auto) 1.0 H 1.5 H Eos # (Auto) 0.3 1.1 H Baso # (Auto) 0.1 0.1 WBC Differential Manual diff final Manual diff final Seg Neuts % (Manual) 13 L 20 Band Neuts % (Manual) 2 5 Lymphocytes % (Manual) 81 H 69 H Monocytes % (Manual) 1 3 Eosinophils % (Manual) 3 3 Abs Neuts (Manual) 6.4 10.6 H Nucleated RBCs/100 WBC 1 H Differential Comment . . Smudge Cells Present H Present H Platelet Estimate Low L Low L Platelet Morphology Normal Normal Ovalocytes 1+ H 1+ H Lab - Chemistry Results 07/05/18 07/05/18 07/06/18 17:13 20:27 04:24 Sodium Potassium Chloride Carbon Dioxide Anion Gap BUN Creatinine Estimated GFR POC Glucose 160 H 176 H Random Glucose Lactic Acid 2.3 H Uric Acid Calcium Phosphorus Magnesium Total Bilirubin Direct Bilirubin Indirect Bilirubin AST ALT Alkaline Phosphatase Ammonia Total Creatine Kinase Troponin I Total Protein Albumin Amylase Lipase TSH 07/06/18 07/06/18 07/06/18 04:24 04:24 05:45 Sodium 140 Potassium 5.1 Chloride 105 Carbon Dioxide 22.0 Anion Gap 13 BUN 91 H Creatinine 5.63 H Estimated GFR 7 L POC Glucose 172 H Random Glucose 157 H Lactic Acid Uric Acid 11.7 H Calcium 8.9 Phosphorus 5.5 H Magnesium 2.1 Total Bilirubin 2.1 H Direct Bilirubin 1.1 H Indirect Bilirubin 1.0 H AST 267 H ALT 63 H Alkaline Phosphatase 158 H Ammonia Less than 10 L Total Creatine Kinase 68 Troponin I 0.06 H Total Protein 6.7 D Albumin 5.1 H Amylase 254 H Lipase 1209 H TSH 15.800 H 07/06/18 07/06/18 07/07/18 11:35 16:52 00:13 Sodium Potassium Chloride Carbon Dioxide Anion Gap BUN Creatinine Estimated GFR POC Glucose 157 H 158 H 151 H Random Glucose Lactic Acid Uric Acid Calcium Phosphorus Magnesium Total Bilirubin Direct Bilirubin Indirect Bilirubin AST ALT Alkaline Phosphatase Ammonia Total Creatine Kinase Troponin I Total Protein Albumin Amylase Lipase TSH 07/07/18 07/07/18 04:24 05:35 Sodium 141 Potassium 4.6 Chloride 107 Carbon Dioxide 19.0 L Anion Gap 15 BUN 98 H Creatinine 5.67 H Estimated GFR 7 L POC Glucose 132 H Random Glucose 120 H Lactic Acid Uric Acid Calcium 8.4 L Phosphorus 3.9 D Magnesium 2.0 Total Bilirubin 2.0 H Direct Bilirubin Indirect Bilirubin AST 197 H ALT 49 Alkaline Phosphatase 136 H Ammonia Total Creatine Kinase Troponin I Total Protein 6.1 L D Albumin 4.5 D Amylase Lipase TSH Imaging: ITS Impressions Abdomen Ultrasound 06/25/18 00:00 CONCLUSION: 1. Moderate ascites 2. Hepatic cirrhosis Abdomen/Pelvis CT 06/25/18 00:00 CONCLUSION: 1. Suspected cirrhotic liver. 2. Mild to moderate amount of ascites. 3. Bilateral pleural effusions being mild on the right and minimal on the left. 4. Increased density at the inferior right middle lobe and right lower lobe likely related to consolidation or atelectasis. 5. Anasarca 6. Tiny nonobstructing left renal stone. Chest Ultrasound 06/25/18 00:00 CONCLUSION: 1. Large right pleural effusion without appreciable loculation. Thoracentesis Ultrasound 06/25/18 00:00 CONCLUSION: 1. Uncomplicated right thoracentesis. Head CT 06/25/18 06:47 CONCLUSION: 1. Stable evaluation of the head. 2. No evidence of acute infarct, hemorrhage, mass or edema. . Paracentesis Ultrasound 06/29/18 00:00 CONCLUSION: 1. Uncomplicated paracentesis. TIPS 07/01/18 00:00 CONCLUSION: 1. Uncomplicated fluoroscopic guided placement of TIPS shunts from the right hepatic vein to the right portal vein, as above. PLAN: Baseline ultrasound examination in 2 weeks with surveillance ultrasound at 3 months, 6 months and one year. Abdomen X-Ray 07/06/18 11:06 CONCLUSION: Dobbhoff tube tip is noted within the expected region of the distal stomach. Chest X-Ray 07/07/18 06:00 CONCLUSION: Persistent left lower lobe consolidation. New nonconsolidative infiltrates in the right perihilar region. Physical Exam: GENERAL: Sedated on the vent SKIN: Cool and dry. No generalized rash. HEAD: Atraumatic. Normocephalic. No temporal wasting, or tenderness. EYES: [place] conjunctiva. No petechia or hemorrhage. Has mild scleral icterus. No injection or drainage. EARS, NOSE AND THROAT: Orally intubated NECK: Ecchymoses R side where they had venipunture for TIPS CARDIOVASCULAR: Regular rate and rhythm. No murmurs, rubs or gallops heard RESPIRATORY: Decreased breath sounds at bases. Cath R side with serous fluid ABDOMEN: Globular, soft, mildly distended, no reaction to palpation. Bowel sounds present and normoactive. EXTREMITIES: No clubbing, cyanosis. Has mild pedal edema. No calf tenderness. NEUROLOGICAL: Sedated PSYCHIATRIC: Unable to assess LINE: No evidence of infection Assessment and Plan - Plan Impression Leukocytosis, etiology? - ?reactive, up again - no obvious source of infection - CXR now clear after tap - no UA, no complaints - C diff negative - ?part of her CLL, has lymphocyte predominance on manual diff Bilateral infiltrates - CHF likely, or ARDS Respiratory failure Eligio effusions and ascites, etiology? Known CLL, stage 0 Ascites, has liver cirrhosis on imaging - S/P TIPS Chest pain, ?etiology - ?related to TIPS Renal failure, creatinine rising Recommendation Follow CBC Follow new C/S - fluid, sputum - if negative, will D/C Abx Continue Levaquin and Flagyl for now Discussion re:HD in process Palliative medicine following Monitor progress Poor prognosis D/W RN
--- NOTE | 2018-07-07 16:02 | P.PNPAL ---
Reason for Visit Reason for visit: a. To assist with evaluation and management of symptoms including: Shortness of breath, debility b. To assist medical decision maker(s) with: better understanding of current medical conditions; weighing benefits/burdens of medical treatment options; making medical treatment decisions. Subjective Subjective/Interval History: Follow-up medically necessary for symptom management and establishment of goals of medical treatment. Patient remains in MICU, intubated, sedated on mechanical ventilation. FiO2 currently 40%. Fentanyl infusion at 100 mcg/hr. Patient is withdrawing with all 4 extremities to noxious stimulation. Patient underwent ultrasound-guided right chest tube placement for large right pleural effusion with removal of 1.4 L on 07/06/18 at bedside by critical care physician Dr. Sylvester. Patient remains anuric with worsening renal function and a BUN/creatinine of 98/5.67. Chest x-ray 07/07/18 revealing persistent left lower lobe consolidation and new non-consolidative infiltrates in the right perihilar region. Meeting with patient`s spouse Clarence Sylvester and family friend Keon Real and his . Updated patient spouse on patient's current medical status including worsening renal function and patient's anuric status. Discussed overall patient 's poor prognosis with ongoing multiple comorbidities. Discussed hemodialysis. Patient`s spouse who is currently grieving the loss of his only living relative-his brother who yesterday 07/06/18 mentioned that he is not ready to lose his . He would like everything possible that can be done including hemodialysis to try and save his . Explained to patient`s spouse that the medical team does not feel that hemodialysis will improve patient's condition. Discussed at length how patient currently has many organs failing and her minimal chance of being able to return to her baseline. Patient`s spouse has an understanding that patient may not be able to survive this hospitalization. He mentions that he has decided to make patient an alternative code with that understanding. Anticipatory guidance provided per patient`s spouse request to discuss options available to patient and him if patient does not show any improvement after being started on hemodialysis. Discussed compassionate withdrawal from life support and introduced hospice philosophy and benefits. Patient already has hospice following. Patient's has requested that hospice follows up with him in case he decides to compassionately withdraw patient from life support. Nephrology Des Calzada came in room during discussion. Notified her of patient's spouse wishes to proceed with hemodialysis if needed. Case discussed with bedside RN Jn, hospice entrance attendant Aleksandar and Dr. Sylvester. . Family/Friend Interactions: See interval note. . Advance Directives Living Will: Never completed Health Care Surrogate: Copy in medical record Durable Power of Hotel Sales Manager: Never completed Advance Directives Date on File: 06/29/18 Health Care Surrogate Name and Number: HCS: Clarence Sylvester [phone] Alt: Bharat Willard Documented care wishes:: Never completed living will. . Objective Vital Signs: Vital Signs 07/06/18 15:20 07/06/18 15:31 07/06/18 15:40 Temperature Pulse Rate 50 L 49 L 50 L Respiratory Rate 18 18 18 Blood Pressure 92/48 L 112/56 L 101/50 L Pulse Oximetry 98 100 91 L 07/06/18 15:50 07/06/18 16:00 07/06/18 16:31 Temperature 97.6 F Pulse Rate 49 L 48 L Respiratory Rate 18 20 Blood Pressure 99/50 L 97/60 L 100/51 L Pulse Oximetry 93 L 96 07/06/18 16:40 07/06/18 16:50 07/06/18 17:00 Temperature Pulse Rate 48 L 49 L 48 L Respiratory Rate 19 20 20 Blood Pressure 99/56 L 99/61 L 102/51 L Pulse Oximetry 96 97 97 07/06/18 17:10 07/06/18 17:20 07/06/18 17:31 Temperature Pulse Rate 48 L 48 L 47 L Respiratory Rate 19 18 19 Blood Pressure 102/54 L 106/54 L 114/54 L Pulse Oximetry 96 97 97 07/06/18 17:40 07/06/18 17:50 07/06/18 18:00 Temperature Pulse Rate 48 L 47 L 48 L Respiratory Rate 18 18 18 Blood Pressure 103/53 L 102/55 L 97/54 L Pulse Oximetry 97 96 93 L 07/06/18 18:10 07/06/18 18:20 07/06/18 18:30 Temperature Pulse Rate 48 L 47 L 47 L Respiratory Rate 18 18 18 Blood Pressure 92/53 L 99/54 L 110/55 L Pulse Oximetry 92 L 95 95 07/06/18 18:40 07/06/18 18:50 07/06/18 19:00 Temperature Pulse Rate 47 L 47 L 48 L Respiratory Rate 18 18 18 Blood Pressure 105/54 L 113/57 L Pulse Oximetry 95 95 95 07/06/18 19:01 07/06/18 19:11 07/06/18 19:21 Temperature Pulse Rate 48 L 47 L 47 L Respiratory Rate 18 18 18 Blood Pressure 137/58 L 108/52 L 95/52 L Pulse Oximetry 94 L 96 94 L 07/06/18 19:31 07/06/18 19:40 07/06/18 19:50 Temperature Pulse Rate 47 L 47 L 47 L Respiratory Rate 18 18 18 Blood Pressure 115/56 L 113/56 L 106/53 L Pulse Oximetry 95 95 94 L 07/06/18 20:00 07/06/18 20:10 07/06/18 20:20 Temperature 98.5 F Pulse Rate 48 L 47 L 47 L Respiratory Rate 18 18 18 Blood Pressure 114/56 L 105/58 L 108/56 L Pulse Oximetry 94 L 95 95 07/06/18 20:30 07/06/18 20:36 07/06/18 21:00 Temperature Pulse Rate 47 L 47 L 48 L Respiratory Rate 18 19 19 Blood Pressure 110/56 L Pulse Oximetry 96 90 L 95 07/06/18 21:02 07/06/18 21:31 07/06/18 22:00 Temperature Pulse Rate 94 H 49 L 49 L Respiratory Rate 22 20 18 Blood Pressure 121/88 125/77 Pulse Oximetry 96 96 98 07/06/18 22:01 07/06/18 22:36 07/06/18 23:00 Temperature Pulse Rate 49 L 48 L 48 L Respiratory Rate 23 19 19 Blood Pressure 114/75 129/60 Pulse Oximetry 98 99 99 07/06/18 23:06 07/06/18 23:30 07/06/18 23:45 Temperature Pulse Rate 48 L 48 L 47 L Respiratory Rate 18 18 18 Blood Pressure 120/59 L 115/55 L Pulse Oximetry 99 99 99 07/07/18 00:00 07/07/18 00:31 07/07/18 01:00 Temperature 98.4 F Pulse Rate 47 L 48 L 47 L Respiratory Rate 19 22 18 Blood Pressure 128/60 106/52 L Pulse Oximetry 100 91 L 97 07/07/18 01:01 07/07/18 01:30 07/07/18 02:00 Temperature Pulse Rate 47 L 46 L 67 Respiratory Rate 18 18 20 Blood Pressure 126/60 129/58 L Pulse Oximetry 98 98 99 07/07/18 02:02 07/07/18 02:34 07/07/18 03:00 Temperature Pulse Rate 191 H 46 L 45 L Respiratory Rate 24 18 18 Blood Pressure 105/60 110/58 L 114/54 L Pulse Oximetry 94 L 95 98 07/07/18 03:47 07/07/18 04:00 07/07/18 07:51 Temperature 98.1 F Pulse Rate 53 L 74 80 Respiratory Rate 18 18 Blood Pressure 121/56 L Pulse Oximetry 98 91 L 07/07/18 07:52 07/07/18 08:00 07/07/18 11:47 Temperature 98.3 F Pulse Rate 44 L 70 Respiratory Rate 18 18 Blood Pressure 112/58 L Pulse Oximetry 92 L 95 07/07/18 11:48 07/07/18 12:00 Temperature 98.2 F Pulse Rate 44 L Respiratory Rate 18 18 Blood Pressure 126/61 Pulse Oximetry 97 97 Intake & Output 07/06/18 07/07/18 07/07/18 18:59 06:59 18:59 Intake Total 1100 / 1100 1200 / 1200 Output Total 980 / 980 400 / 400 Balance 120 / 120 800 / 800 Weight 85 kg Intake: IV 1100 / 1100 1200 / 1200 NS Inj 1,000 ML @ 84 mls/hr IV. 1000 / 1000 1000 / 1000 CONT .[id number] SHILPI Rx#:[id number] Flexbumin 25% Inj 100 ML @ 60 100 / 100 200 / 200 mls/hr IV.SIG Q8H SHILPI Rx#: [id number] Oral 0 / 0 Output: Chest Tube Drainage 980 / 980 400 / 400 #1 Right Mid-Axillary Chest 980 / 980 400 / 400 Other: # Incontinent Voids 1 Date of Last Bowel Movement 07/05/18 07/05/18 07/05/18 # Bowel Movements 0 Physical Exam: CONSTITUTIONAL/GENERAL: This is a chronically ill looking elderly patient, intubated and sedated.. TUBES/LINES/DRAINS: PIV, ETT, Madsen catheter, Dobbhoff catheter SKIN: Pale. Slightly jaundiced. Ecchymoses on upper extremities. Surgical incision to right IJ with a dressing on. HEAD: Atraumatic. Normocephalic. EYES: Pupils equal and reactive to light. Fundi not examined. ENT: Nose without bleeding or purulent drainage. Edentulous. ETT NECK: Trachea midline. Supple, nontender. CARDIOVASCULAR: S1, S2 normal. No JVD. Peripheral pulses symmetric. RESPIRATORY/CHEST: Symmetric. Diminished breath sounds right pigtail chest tube to suction. No wheezes, rales, or rhonchi. GASTROINTESTINAL: Abdomen soft, non-tender, distended. No guarding. Hypoactive bowel sounds. GENITOURINARY: Without palpable bladder distension. MUSCULOSKELETAL: Extremities without clubbing, cyanosis, or edema. No mottling or clubbing. LYMPHATICS: Did not assess NEUROLOGICAL: Intubated, sedated. PSYCHIATRIC: Unable to assess Diagnostic Tests Laboratory: Laboratory Results - last 72 hr 07/04/18 07/04/18 07/05/18 17:36 23:43 07:37 WBC RBC Hgb Hct MCV MCH MCHC RDW Plt Count MPV Prelim Diff (Auto) Neut % (Auto) Lymph % (Auto) [place] % (Auto) Eos % (Auto) Baso % (Auto) Neut # (Auto) Lymph # (Auto) [place] # (Auto) Eos # (Auto) Baso # (Auto) WBC Differential Seg Neuts % (Manual) Band Neuts % (Manual) Lymphocytes % (Manual) Monocytes % (Manual) Eosinophils % (Manual) Abs Neuts (Manual) Nucleated RBCs/100 WBC Differential Comment Smudge Cells Platelet Estimate Platelet Morphology Ovalocytes PT INR APTT Fibrinogen Puncture Site Patient Temperature O2 Saturation ABG pH ABG pCO2 ABG pO2 ABG HCO3 ABG O2 Content ABG Base Excess ABG Methemoglobin [place] Test Hemoglobin Carboxyhemoglobin O2 Delivery Device Liter Flow Vent Setting Inspired O2 Critical Value Sodium Potassium Chloride Carbon Dioxide Anion Gap BUN Creatinine Estimated GFR POC Glucose 203 H 176 H 154 H Random Glucose Lactic Acid Uric Acid Calcium Phosphorus Magnesium Total Bilirubin Direct Bilirubin Indirect Bilirubin AST ALT Alkaline Phosphatase Ammonia Total Creatine Kinase Troponin I Total Protein Albumin Amylase Lipase TSH Pleural pH Pleural RBC Pleural Nuc Cells Pleural Neutrophils Pleural Lymphocytes Pleural Monocytes Pleural Histocytes Pleural Mesothelial Pleural Total Protein Pleural LDH Pleural Glucose Pleural Amylase 07/05/18 07/05/18 07/05/18 09:19 09:19 11:58 WBC 63.7 H RBC 3.32 L Hgb 9.9 L Hct 31.3 L MCV 94.4 MCH 30.0 MCHC 31.8 L RDW 17.3 H Plt Count 237 MPV 8.5 Prelim Diff (Auto) Slide review pending Neut % (Auto) 25.4 Lymph % (Auto) 70.3 H [place] % (Auto) 3.0 Eos % (Auto) 1.1 Baso % (Auto) 0.2 Neut # (Auto) 16.2 H Lymph # (Auto) 44.8 H [place] # (Auto) 1.9 H Eos # (Auto) 0.7 H Baso # (Auto) 0.1 WBC Differential Manual diff final Seg Neuts % (Manual) 15 L Band Neuts % (Manual) 1 Lymphocytes % (Manual) 83 H Monocytes % (Manual) Eosinophils % (Manual) 1 Abs Neuts (Manual) 10.2 H Nucleated RBCs/100 WBC 1 H Differential Comment . Smudge Cells Present H Platelet Estimate Normal Platelet Morphology Normal Ovalocytes PT INR APTT Fibrinogen Puncture Site Patient Temperature O2 Saturation ABG pH ABG pCO2 ABG pO2 ABG HCO3 ABG O2 Content ABG Base Excess ABG Methemoglobin [place] Test Hemoglobin Carboxyhemoglobin O2 Delivery Device Liter Flow Vent Setting Inspired O2 Critical Value Sodium 138 Potassium 5.1 Chloride 106 Carbon Dioxide 20.9 L Anion Gap 11 BUN 87 H Creatinine 5.32 H Estimated GFR 8 L POC Glucose 127 H Random Glucose 160 H Lactic Acid Uric Acid Calcium 9.0 Phosphorus Magnesium Total Bilirubin Direct Bilirubin Indirect Bilirubin AST ALT Alkaline Phosphatase Ammonia Total Creatine Kinase Troponin I Total Protein Albumin Amylase Lipase TSH Pleural pH Pleural RBC Pleural Nuc Cells Pleural Neutrophils Pleural Lymphocytes Pleural Monocytes Pleural Histocytes Pleural Mesothelial Pleural Total Protein Pleural LDH Pleural Glucose Pleural Amylase 07/05/18 07/05/18 07/05/18 17:13 20:27 22:58 WBC RBC Hgb Hct MCV MCH MCHC RDW Plt Count MPV Prelim Diff (Auto) Neut % (Auto) Lymph % (Auto) [place] % (Auto) Eos % (Auto) Baso % (Auto) Neut # (Auto) Lymph # (Auto) [place] # (Auto) Eos # (Auto) Baso # (Auto) WBC Differential Seg Neuts % (Manual) Band Neuts % (Manual) Lymphocytes % (Manual) Monocytes % (Manual) Eosinophils % (Manual) Abs Neuts (Manual) Nucleated RBCs/100 WBC Differential Comment Smudge Cells Platelet Estimate Platelet Morphology Ovalocytes PT INR APTT Fibrinogen Puncture Site Right radial Patient Temperature 98.6 O2 Saturation 93 ABG pH 7.28 L* ABG pCO2 41 ABG pO2 87 ABG HCO3 19 L ABG O2 Content 12.2 ABG Base Excess -6.8 L ABG Methemoglobin 1.4 [place] Test Present Hemoglobin 9.2 L Carboxyhemoglobin 1.4 O2 Delivery Device Nrb Liter Flow 15.00 Vent Setting Inspired O2 100 Critical Value Yes Sodium Potassium Chloride Carbon Dioxide Anion Gap BUN Creatinine Estimated GFR POC Glucose 160 H 176 H Random Glucose Lactic Acid Uric Acid Calcium Phosphorus Magnesium Total Bilirubin Direct Bilirubin Indirect Bilirubin AST ALT Alkaline Phosphatase Ammonia Total Creatine Kinase Troponin I Total Protein Albumin Amylase Lipase TSH Pleural pH Pleural RBC Pleural Nuc Cells Pleural Neutrophils Pleural Lymphocytes Pleural Monocytes Pleural Histocytes Pleural Mesothelial Pleural Total Protein Pleural LDH Pleural Glucose Pleural Amylase 07/06/18 07/06/18 07/06/18 03:55 04:24 04:24 WBC 42.7 H RBC 2.84 L Hgb 8.6 L Hct 26.6 L MCV 93.9 MCH 30.4 MCHC 32.3 RDW 16.7 Plt Count 158 D MPV 8.6 Prelim Diff (Auto) Slide review pending Neut % (Auto) 27.1 Lymph % (Auto) 69.5 H [place] % (Auto) 2.4 Eos % (Auto) 0.8 Baso % (Auto) 0.2 Neut # (Auto) 11.5 H Lymph # (Auto) 29.7 H [place] # (Auto) 1.0 H Eos # (Auto) 0.3 Baso # (Auto) 0.1 WBC Differential Manual diff final Seg Neuts % (Manual) 13 L Band Neuts % (Manual) 2 Lymphocytes % (Manual) 81 H Monocytes % (Manual) 1 Eosinophils % (Manual) 3 Abs Neuts (Manual) 6.4 Nucleated RBCs/100 WBC Differential Comment . Smudge Cells Present H Platelet Estimate Low L Platelet Morphology Normal Ovalocytes 1+ H PT INR APTT Fibrinogen Puncture Site Right radial Patient Temperature 98.6 O2 Saturation 90 ABG pH 7.25 L* ABG pCO2 47 H ABG pO2 75 ABG HCO3 20 L ABG O2 Content 10.9 L ABG Base Excess -5.7 L ABG Methemoglobin 1.1 [place] Test Present Hemoglobin 8.5 L Carboxyhemoglobin 1.4 O2 Delivery Device Nrb Liter Flow 15.00 Vent Setting Inspired O2 100 Critical Value Yes Sodium Potassium Chloride Carbon Dioxide Anion Gap BUN Creatinine Estimated GFR POC Glucose Random Glucose Lactic Acid 2.3 H Uric Acid Calcium Phosphorus Magnesium Total Bilirubin Direct Bilirubin Indirect Bilirubin AST ALT Alkaline Phosphatase Ammonia Total Creatine Kinase Troponin I Total Protein Albumin Amylase Lipase TSH Pleural pH Pleural RBC Pleural Nuc Cells Pleural Neutrophils Pleural Lymphocytes Pleural Monocytes Pleural Histocytes Pleural Mesothelial Pleural Total Protein Pleural LDH Pleural Glucose Pleural Amylase 07/06/18 07/06/18 07/06/18 04:24 04:24 04:24 WBC RBC Hgb Hct MCV MCH MCHC RDW Plt Count MPV Prelim Diff (Auto) Neut % (Auto) Lymph % (Auto) [place] % (Auto) Eos % (Auto) Baso % (Auto) Neut # (Auto) Lymph # (Auto) [place] # (Auto) Eos # (Auto) Baso # (Auto) WBC Differential Seg Neuts % (Manual) Band Neuts % (Manual) Lymphocytes % (Manual) Monocytes % (Manual) Eosinophils % (Manual) Abs Neuts (Manual) Nucleated RBCs/100 WBC Differential Comment Smudge Cells Platelet Estimate Platelet Morphology Ovalocytes PT 20.7 H INR 2.0 APTT 52.7 H Fibrinogen 114 L Puncture Site Patient Temperature O2 Saturation ABG pH ABG pCO2 ABG pO2 ABG HCO3 ABG O2 Content ABG Base Excess ABG Methemoglobin [place] Test Hemoglobin Carboxyhemoglobin O2 Delivery Device Liter Flow Vent Setting Inspired O2 Critical Value Sodium 140 Potassium 5.1 Chloride 105 Carbon Dioxide 22.0 Anion Gap 13 BUN 91 H Creatinine 5.63 H Estimated GFR 7 L POC Glucose Random Glucose 157 H Lactic Acid Uric Acid 11.7 H Calcium 8.9 Phosphorus 5.5 H Magnesium 2.1 Total Bilirubin 2.1 H Direct Bilirubin 1.1 H Indirect Bilirubin 1.0 H AST 267 H ALT 63 H Alkaline Phosphatase 158 H Ammonia Less than 10 L Total Creatine Kinase 68 Troponin I 0.06 H Total Protein 6.7 D Albumin 5.1 H Amylase 254 H Lipase 1209 H TSH 15.800 H Pleural pH Pleural RBC Pleural Nuc Cells Pleural Neutrophils Pleural Lymphocytes Pleural Monocytes Pleural Histocytes Pleural Mesothelial Pleural Total Protein Pleural LDH Pleural Glucose Pleural Amylase 07/06/18 07/06/18 07/06/18 05:08 05:45 11:35 WBC RBC Hgb Hct MCV MCH MCHC RDW Plt Count MPV Prelim Diff (Auto) Neut % (Auto) Lymph % (Auto) [place] % (Auto) Eos % (Auto) Baso % (Auto) Neut # (Auto) Lymph # (Auto) [place] # (Auto) Eos # (Auto) Baso # (Auto) WBC Differential Seg Neuts % (Manual) Band Neuts % (Manual) Lymphocytes % (Manual) Monocytes % (Manual) Eosinophils % (Manual) Abs Neuts (Manual) Nucleated RBCs/100 WBC Differential Comment Smudge Cells Platelet Estimate Platelet Morphology Ovalocytes PT INR APTT Fibrinogen Puncture Site Right radial Patient Temperature 98.6 O2 Saturation 96 ABG pH 7.33 L ABG pCO2 36 L ABG pO2 119 ABG HCO3 18 L ABG O2 Content 11.6 L ABG Base Excess -6.4 L ABG Methemoglobin 1.5 [place] Test Present Hemoglobin 8.5 L Carboxyhemoglobin 1.3 O2 Delivery Device Ventilator Liter Flow Vent Setting Prvc 18/530/1.10/8 Inspired O2 80 Critical Value No Sodium Potassium Chloride Carbon Dioxide Anion Gap BUN Creatinine Estimated GFR POC Glucose 172 H 157 H Random Glucose Lactic Acid Uric Acid Calcium Phosphorus Magnesium Total Bilirubin Direct Bilirubin Indirect Bilirubin AST ALT Alkaline Phosphatase Ammonia Total Creatine Kinase Troponin I Total Protein Albumin Amylase Lipase TSH Pleural pH Pleural RBC Pleural Nuc Cells Pleural Neutrophils Pleural Lymphocytes Pleural Monocytes Pleural Histocytes Pleural Mesothelial Pleural Total Protein Pleural LDH Pleural Glucose Pleural Amylase 07/06/18 07/06/18 07/06/18 15:15 15:15 15:15 WBC RBC Hgb Hct MCV MCH MCHC RDW Plt Count MPV Prelim Diff (Auto) Neut % (Auto) Lymph % (Auto) [place] % (Auto) Eos % (Auto) Baso % (Auto) Neut # (Auto) Lymph # (Auto) [place] # (Auto) Eos # (Auto) Baso # (Auto) WBC Differential Seg Neuts % (Manual) Band Neuts % (Manual) Lymphocytes % (Manual) Monocytes % (Manual) Eosinophils % (Manual) Abs Neuts (Manual) Nucleated RBCs/100 WBC Differential Comment Smudge Cells Platelet Estimate Platelet Morphology Ovalocytes PT INR APTT Fibrinogen Puncture Site Patient Temperature O2 Saturation ABG pH ABG pCO2 ABG pO2 ABG HCO3 ABG O2 Content ABG Base Excess ABG Methemoglobin [place] Test Hemoglobin Carboxyhemoglobin O2 Delivery Device Liter Flow Vent Setting Inspired O2 Critical Value Sodium Potassium Chloride Carbon Dioxide Anion Gap BUN Creatinine Estimated GFR POC Glucose Random Glucose Lactic Acid Uric Acid Calcium Phosphorus Magnesium Total Bilirubin Direct Bilirubin Indirect Bilirubin AST ALT Alkaline Phosphatase Ammon[place] Total Creatine Kinase Troponin I Total Protein Albumin Amylase Lipase TSH Pleural pH 8.5 Pleural RBC 06582 H Pleural Nuc Cells 443 H Pleural Neutrophils 6 Pleural Lymphocytes 46 Pleural Monocytes 7 Pleural Histocytes 17 Pleural Mesothelial 24 Pleural Total Protein 3.0 Pleural LDH Cancelled 140 Pleural Glucose Cancelled 165 Pleural Amylase Cancelled 64 07/06/18 07/07/18 07/07/18 16:52 00:13 04:24 WBC 42.5 H RBC 3.00 L Hgb 9.2 L Hct 28.3 L MCV 94.3 MCH 30.6 MCHC 32.4 RDW 16.8 Plt Count 136 L MPV 9.0 Prelim Diff (Auto) Slide review pending Neut % (Auto) 23.6 Lymph % (Auto) 70.0 H [place] % (Auto) 3.5 Eos % (Auto) 2.6 Baso % (Auto) 0.3 Neut # (Auto) 10.0 H Lymph # (Auto) 29.7 H [place] # (Auto) 1.5 H Eos # (Auto) 1.1 H Baso # (Auto) 0.1 WBC Differential Manual diff final Seg Neuts % (Manual) 20 Band Neuts % (Manual) 5 Lymphocytes % (Manual) 69 H Monocytes % (Manual) 3 Eosinophils % (Manual) 3 Abs Neuts (Manual) 10.6 H Nucleated RBCs/100 WBC 1 H Differential Comment . Smudge Cells Present H Platelet Estimate Low L Platelet Morphology Normal Ovalocytes 1+ H PT INR APTT Fibrinogen Puncture Site Patient Temperature O2 Saturation ABG pH ABG pCO2 ABG pO2 ABG HCO3 ABG O2 Content ABG Base Excess ABG Methemoglobin [place] Test Hemoglobin Carboxyhemoglobin O2 Delivery Device Liter Flow Vent Setting Inspired O2 Critical Value Sodium Potassium Chloride Carbon Dioxide Anion Gap BUN Creatinine Estimated GFR POC Glucose 158 H 151 H Random Glucose Lactic Acid Uric Acid Calcium Phosphorus Magnesium Total Bilirubin Direct Bilirubin Indirect Bilirubin AST ALT Alkaline Phosphatase Ammonia Total Creatine Kinase Troponin I Total Protein Albumin Amylase Lipase TSH Pleural pH Pleural RBC Pleural Nuc Cells Pleural Neutrophils Pleural Lymphocytes Pleural Monocytes Pleural Histocytes Pleural Mesothelial Pleural Total Protein Pleural LDH Pleural Glucose Pleural Amylase 07/07/18 07/07/18 04:24 05:35 WBC RBC Hgb Hct MCV MCH MCHC RDW Plt Count MPV Prelim Diff (Auto) Neut % (Auto) Lymph % (Auto) [place] % (Auto) Eos % (Auto) Baso % (Auto) Neut # (Auto) Lymph # (Auto) [place] # (Auto) Eos # (Auto) Baso # (Auto) WBC Differential Seg Neuts % (Manual) Band Neuts % (Manual) Lymphocytes % (Manual) Monocytes % (Manual) Eosinophils % (Manual) Abs Neuts (Manual) Nucleated RBCs/100 WBC Differential Comment Smudge Cells Platelet Estimate Platelet Morphology Ovalocytes PT INR APTT Fibrinogen Puncture Site Patient Temperature O2 Saturation ABG pH ABG pCO2 ABG pO2 ABG HCO3 ABG O2 Content ABG Base Excess ABG Methemoglobin [place] Test Hemoglobin Carboxyhemoglobin O2 Delivery Device Liter Flow Vent Setting Inspired O2 Critical Value Sodium 141 Potassium 4.6 Chloride 107 Carbon Dioxide 19.0 L Anion Gap 15 BUN 98 H Creatinine 5.67 H Estimated GFR 7 L POC Glucose 132 H Random Glucose 120 H Lactic Acid Uric Acid Calcium 8.4 L Phosphorus 3.9 D Magnesium 2.0 Total Bilirubin 2.0 H Direct Bilirubin Indirect Bilirubin AST 197 H ALT 49 Alkaline Phosphatase 136 H Ammonia Total Creatine Kinase Troponin I Total Protein 6.1 L D Albumin 4.5 D Amylase Lipase TSH Pleural pH Pleural RBC Pleural Nuc Cells Pleural Neutrophils Pleural Lymphocytes Pleural Monocytes Pleural Histocytes Pleural Mesothelial Pleural Total Protein Pleural LDH Pleural Glucose Pleural Amylase Result Diagrams: 07/07/18 04:24 07/07/18 04:24 Microbiology: Microbiology 07/06/18 11:50 Gram Stain - Final Sputum - Endotracheal Sputum Culture - Preliminary Moderate growth normal respiratory yaneth at 24 hours 07/06/18 15:15 Gram Stain - Final Fluid - Pleural fluid Body Fluid Culture - Preliminary No growth in 24 hours 07/06/18 05:15 Aerobic Blood Culture - Preliminary Blood - Peripheral No growth in 1 day Anaerobic Blood Culture - Preliminary No growth in 1 day 07/06/18 05:20 Aerobic Blood Culture - Preliminary Blood - Peripheral No growth in 1 day Anaerobic Blood Culture - Preliminary No growth in 1 day 07/06/18 08:10 Influenza Types A,B Antigen - Final Nasal Wash Negative for FLU A and B antigen Infection due to influenza A or B cannot be ruled out since the antigen present in the sample may be below the detection limit of the test. Imaging: Abdomen Ultrasound 06/25/18 00:00 CONCLUSION: 1. Moderate ascites 2. Hepatic cirrhosis Abdomen/Pelvis CT 06/25/18 00:00 CONCLUSION: 1. Suspected cirrhotic liver. 2. Mild to moderate amount of ascites. 3. Bilateral pleural effusions being mild on the right and minimal on the left. 4. Increased density at the inferior right middle lobe and right lower lobe likely related to consolidation or atelectasis. 5. Anasarca 6. Tiny nonobstructing left renal stone. Chest Ultrasound 06/25/18 00:00 CONCLUSION: 1. Large right pleural effusion without appreciable loculation. Thoracentesis Ultrasound 06/25/18 00:00 CONCLUSION: 1. Uncomplicated right thoracentesis. Head CT 06/25/18 06:47 CONCLUSION: 1. Stable evaluation of the head. 2. No evidence of acute infarct, hemorrhage, mass or edema. . Paracentesis Ultrasound 06/29/18 00:00 CONCLUSION: 1. Uncomplicated paracentesis. TIPS 07/01/18 00:00 CONCLUSION: 1. Uncomplicated fluoroscopic guided placement of TIPS shunts from the right hepatic vein to the right portal vein, as above. PLAN: Baseline ultrasound examination in 2 weeks with surveillance ultrasound at 3 months, 6 months and one year. Abdomen X-Ray 07/06/18 11:06 CONCLUSION: Dobbhoff tube tip is noted within the expected region of the distal stomach. Chest X-Ray 07/07/18 06:00 CONCLUSION: Persistent left lower lobe consolidation. New nonconsolidative infiltrates in the right perihilar region. Procedures: 06/25/18-Ultrasound guided paracentesis by interventional radiology with removal of 5700 mL's of clear, yellow fluid. 06/25/18 -Ultrasound-guided thoracentesis by interventional radiology with removal of 1200 mL's of clear, yellow fluid. 06/29/1893-[id number] paracentesis by interventional radiology with removal of 5900 mL's of clear, red fluid. 07/01/18-transjugular intrahepatic portosystemic shunt placement by interventional radiology 07/06/18-Endotracheally intubated 07/06/1884-[id number] right chest tube placement for large right pleural effusion . Assessment and Plan - Disease Oriented Problem List (1) Sepsis (2) Diabetes (3) Pneumonia (4) Acute on chronic kidney failure (5) Abdominal distension - Symptom Scale (1) Shortness of breath Comment: This is most likely from ascites and pleural effusion. Patient has had ultrasound guided thoracentesis on 03/05 with removal of 1200 mL's of clear, yellow fluid and ultrasound guided paracentesis on 06/25/18 with removal of 5700 mL's of clear fluid. (2) Debility Comment: Progressive. Patient has multiple ongoing comorbidities. Pertinent Non-Medical Issues: Psychosocial: Patient is originally from [facility]. She moved to [place] in 1983. She has been to her current for 29 years. 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 Patient has never had children. Spiritual: Patient is [employer]-open to belt loop maker or emissions engineer to visit. Legal: Patient has completed designation of healthcare surrogate form today 07/05. Ethical issues impacting care: None identified at this time Important Contacts: Healthcare surrogate -spouse-Higinio Lima [phone] Alternate healthcare surrogate-Nicholsoneileen Willard -[phone] Family friend-Keon Real [phone] . Prognosis: Mrs. Phoenix is a 72-year-old female with a past medical history of chronic lymphoid leukemia, asthma, diabetes mellitus, fatty liver, gout, arthritis, kidney disease, and thyroid disease. Patient presented to the emergency room on 06/25/18 for evaluation of generalized weakness, abdominal distention, shortness of breath and a painful bump on her head which she sustained from a fall from her water bed a week prior to presenting to the emergency room. Diagnostic EGD has showed that patient has liver cirrhosis. Clinical course complicated by shortness of breath, worsening renal function, and recurrent ascites. Given multiple ongoing comorbidities, patient remains at high risk for further complications, deterioration and decline. . Code Status: Alternative Code Plan: PLAN: Legal decision maker: Patient is currently intubated, sedated and is not able to participate in decision-making. It is not known with the patient will ever regain capacity to make medical decisions for himself. Patient has designated her spouse Higinio Lima as her healthcare surrogate and her neighbor Sudheer Nicholson is her alternate healthcare surrogate in the past when she was able to make medical decisions. Goals: Aggressive. Patient spouse would like to proceed with hemodialysis if needed. If patient does not improve he may consider compassionately withdrawing from life support. Lengthy discussion with patient's spouse Higinio Lima and family friend Keon Real and his . Discussed overall patient's poor prognosis with ongoing multiple comorbidities. Discussed hemodialysis. Patient`s spouse who is currently grieving the loss of his only living relative-his brother who yesterday 07/06/18 mentioned that he is not ready to lose his . He would like everything possible that can be done including hemodialysis to try and save his . Anticipatory guidance provided per patient`s spouse request to discuss options available to patient and him if patient does not show any improvement after being started on hemodialysis. Discussed compassionate withdrawal from life support and introduced hospice philosophy and benefits. CODE STATUS: Alternate code-Intubation only SYMPTOMS: * Shortness of breath:This is most likely from ascites and pleural effusion. Patient has had ultrasound guided thoracentesis on 06/25/18 with removal of 1200 mL's of clear, yellow fluid and ultrasound guided paracentesis on 06/25/18 with removal of 5700 mL's of clear fluid. Patient had another therapeutic paracentesis with removal of 5900 mL's of clear red fluid. Intubated on 07/06/18 - due to confusion, tachypneic, desaturation and lethargy. Currently on FiO2 40 %. Right pigtail chest tube placed on 07/06/18. * Debility: Progressive. Patient has ongoing multiple comorbidities and has had multiple falls at home. Patient uses a wheeled walker at room. Physical therapy consulted, recommended PT at rehab. Palliative care will continue to follow the patient during hospital course as condition evolves, to assist patient/decision-maker with understanding of their medical conditions, weighing benefits/burdens of treatment options, for clarification of goals of treatment. Additionally will assist with any symptoms of palliative concern Attestation Attestation: To help prompt me to consider important information that might be impacting today's encounter and assessment, information from prior notes written by myself or my colleagues may have been "brought forward" into today's note. My signature on this note, however, is an attestation that I personally performed the exam, history, and/or decision-making noted today, and, unless otherwise indicated, the interactions with patient, family, and staff as well as the review of records all occurred today. I also attest that the listed assessment and stated plan reflect my best clinical judgment today based on the combination of historical information, prior notes, and today's exam/ interactions. When time spent is documented, it refers only to time spent today by the signer, or if indicated, combined time spent today by collaborating physician/nurse practitioner.
[2018-07-07] MEDS ORDERED: Midazolam Inj 5 MG/ML 1 ML Vial ONE (17:23)
[2018-07-07 17:26] LABS: Alkaline Phosphatase 119 U/L (45-117); Total Protein 6.2 g/dL (6.4-8.2)
[2018-07-07 17:30] LABS: Alanine Aminotransferase 43 U/L (10-53); Albumin 4.4 g/dL (3.4-5.0); Anion Gap 14 meq/L (5-15); Aspartate Aminotransferase 159 U/L (15-37); Blood Urea Nitrogen 98 mg/dL (7-18); Calcium 8.2 mg/dL (8.5-10.1); Carbon Dioxide 20.1 meq/L (21.0-32.0); Chloride 107 meq/L (98-107); Glomerular Filtration Rate 7 mL/min (>89); Glucose,Random 103 mg/dL (74-106); Sodium 141 meq/L (136-145)
[2018-07-07 17:31] LABS: Potassium 4.9 meq/L (3.5-5.1)
--- NOTE | 2018-07-07 17:33 | P.PNPL ---
Subjective Interval history: 72 YOWF with br asthma, DM, Rt lung infilt and Pl eff Breathing better no Abd pain no fever. On Vent PRVC AC, Fi02 40% Remains on vent Chest tube drained 500 cc Worening renal functions. Physical Exam Vital signs: Vital Signs 07/06/18 17:40 07/06/18 17:50 07/06/18 18:00 Temperature Pulse Rate 48 L 47 L 48 L Respiratory Rate 18 18 18 Blood Pressure 103/53 L 102/55 L 97/54 L Pulse Oximetry 97 96 93 L 07/06/18 18:10 07/06/18 18:20 07/06/18 18:30 Temperature Pulse Rate 48 L 47 L 47 L Respiratory Rate 18 18 18 Blood Pressure 92/53 L 99/54 L 110/55 L Pulse Oximetry 92 L 95 95 07/06/18 18:40 07/06/18 18:50 07/06/18 19:00 Temperature Pulse Rate 47 L 47 L 48 L Respiratory Rate 18 18 18 Blood Pressure 105/54 L 113/57 L Pulse Oximetry 95 95 95 07/06/18 19:01 07/06/18 19:11 07/06/18 19:21 Temperature Pulse Rate 48 L 47 L 47 L Respiratory Rate 18 18 18 Blood Pressure 137/58 L 108/52 L 95/52 L Pulse Oximetry 94 L 96 94 L 07/06/18 19:31 07/06/18 19:40 07/06/18 19:50 Temperature Pulse Rate 47 L 47 L 47 L Respiratory Rate 18 18 18 Blood Pressure 115/56 L 113/56 L 106/53 L Pulse Oximetry 95 95 94 L 07/06/18 20:00 07/06/18 20:10 07/06/18 20:20 Temperature 98.5 F Pulse Rate 48 L 47 L 47 L Respiratory Rate 18 18 18 Blood Pressure 114/56 L 105/58 L 108/56 L Pulse Oximetry 94 L 95 95 07/06/18 20:30 07/06/18 20:36 07/06/18 21:00 Temperature Pulse Rate 47 L 47 L 48 L Respiratory Rate 18 19 19 Blood Pressure 110/56 L Pulse Oximetry 96 90 L 95 07/06/18 21:02 07/06/18 21:31 07/06/18 22:00 Temperature Pulse Rate 94 H 49 L 49 L Respiratory Rate 22 20 18 Blood Pressure 121/88 125/77 Pulse Oximetry 96 96 98 07/06/18 22:01 07/06/18 22:36 07/06/18 23:00 Temperature Pulse Rate 49 L 48 L 48 L Respiratory Rate 23 19 19 Blood Pressure 114/75 129/60 Pulse Oximetry 98 99 99 07/06/18 23:06 07/06/18 23:30 07/06/18 23:45 Temperature Pulse Rate 48 L 48 L 47 L Respiratory Rate 18 18 18 Blood Pressure 120/59 L 115/55 L Pulse Oximetry 99 99 99 07/07/18 00:00 07/07/18 00:31 07/07/18 01:00 Temperature 98.4 F Pulse Rate 47 L 48 L 47 L Respiratory Rate 19 22 18 Blood Pressure 128/60 106/52 L Pulse Oximetry 100 91 L 97 07/07/18 01:01 07/07/18 01:30 07/07/18 02:00 Temperature Pulse Rate 47 L 46 L 67 Respiratory Rate 18 18 20 Blood Pressure 126/60 129/58 L Pulse Oximetry 98 98 99 07/07/18 02:02 07/07/18 02:34 07/07/18 03:00 Temperature Pulse Rate 191 H 46 L 45 L Respiratory Rate 24 18 18 Blood Pressure 105/60 110/58 L 114/54 L Pulse Oximetry 94 L 95 98 07/07/18 03:47 07/07/18 04:00 07/07/18 07:51 Temperature 98.1 F Pulse Rate 53 L 74 80 Respiratory Rate 18 18 18 Blood Pressure 121/56 L Pulse Oximetry 98 91 L 07/07/18 07:52 07/07/18 08:00 07/07/18 11:47 Temperature 98.3 F Pulse Rate 44 L 70 Respiratory Rate 18 18 18 Blood Pressure 112/58 L Pulse Oximetry 92 L 95 07/07/18 11:48 07/07/18 12:00 07/07/18 15:50 Temperature 98.2 F Pulse Rate 44 L 50 L Respiratory Rate 18 18 18 Blood Pressure 126/61 Pulse Oximetry 97 97 07/07/18 15:51 Temperature Pulse Rate Respiratory Rate 18 Blood Pressure Pulse Oximetry 98 Intake & Output 07/06/18 07/07/18 07/07/18 18:59 06:59 18:59 Intake Total 1100 / 1100 1200 / 1200 1100 / 1100 Output Total 980 / 980 400 / 400 Balance 120 / 120 800 / 800 1100 / 1100 Weight 85 kg Intake: IV 1100 / 1100 1200 / 1200 1100 / 1100 NS Inj 1,000 ML @ 84 mls/hr IV. 1000 / 1000 1000 / 1000 1000 / 1000 CONT .[id number] SHILPI Rx#:[id number] Flexbumin 25% Inj 100 ML @ 60 100 / 100 200 / 200 100 / 100 mls/hr IV.SIG Q8H SHILPI Rx#: [id number] Oral 0 / 0 Output: Chest Tube Drainage 980 / 980 400 / 400 #1 Right Mid-Axillary Chest 980 / 980 400 / 400 Other: # Incontinent Voids 1 Date of Last Bowel Movement 07/05/18 07/05/18 07/05/18 # Bowel Movements 0 GENERAL: Elderly WF on vent, sedated SKIN: Warm and dry. HEAD: Normocephalic. EYES: No scleral icterus. No injection or drainage. NECK: Supple, trachea midline. No JVD or lymphadenopathy. CARDIOVASCULAR: Regular rate and rhythm without murmurs, gallops, or rubs. RESPIRATORY: Breath sounds equal bilaterally. No accessory muscle use. Rt chest tube draining GASTROINTESTINAL: Abdomen soft, non-tender, nondistended. MUSCULOSKELETAL: No cyanosis, or edema. BACK: Nontender without obvious deformity. No CVA tenderness. Assessment and Plan - Plan IMPRESSION: 1. Right lung infiltrate. 2. Right pleural effusion. 3. Dyspnea. 4. Diabetes mellitus. 5. Hypertension. 6. Renal insufficiency and chronic kidney disease. 7. CLL 8. S/P TIPS 9. Severe leucocytosis 10. Worsening renal functions, ? hepatorenal synd 11. VDRF PLAN: Vent support, PRVC AC 18, Fi02 40%, Sedation with Fentanyl Cont Abx per ID Aerosol nebs Heparin 5000 IU SQ q 12 hrs Supplement 02 to keep sat >90% Chest tube to suction May need HD
[2018-07-07] MEDS ORDERED: Heparin 10,000 UNITS/10 ML Vial (for IV use) ONE (17:48)
--- NOTE | 2018-07-07 17:52 | P.PCN ---
Date of procedure: 07/07/18 Pre-op diagnosis: Renal failure Post-op diagnosis: same Procedure: US guided left IJ hemodialysis catheter Central line checklist completed, timeout completed. I wore a surgical cap, mask with protective eyewear, full gown and sterile gloves throughout the procedure. Left neck region was prepped using chlorhexidine scrub and draped in sterile fashion. The left IJ was identified using the ultrasound. Anesthesia was achieved over the vein using 1% lidocaine. The introducer needle was inserted into the left IJ under direct ultrasound visualization. Venous blood was withdrawn. The syringe was removed and a guidewire was advanced into the introducer needle. A small incision was made at the skin surface with a scalpel and the introducer needle was exchanged for a dilator over the guidewire. After appropriate dilation was obtained, the dilator was exchanged over the wire for a double lumen lumen, 14F, 24 CM HD catheter. The wire was removed and the catheter was sutured in place at 22 cm. A sterile central line dressing was placed over the catheter at the insertion site. The patient tolerated the procedure without any hemodynamic compromise. At time of procedure completion, all ports aspirated and flushed properly. Post-procedure chest x-ray is pending at this time. Anesthesia: local Surgeon: Allan Sylvester Estimated blood loss (mL): 2 Pathology: none sent Condition: critical Disposition: ICU
[2018-07-07] MEDS: fentaNYL 10 mcg/mL Premix Drip 2,500 MCG/250 ML BAG IV.SIG PRN (18:30)
--- NOTE | 2018-07-07 18:41 | XR ---
EXAM DATE: 07/07/2018 6:35 PM EST AGE/SEX: 72 years / Female INDICATIONS: RML PNA, Hypoxic Respiratory Failure. CLINICAL DATA: This is the patient's subsequent encounter. Patient reports that signs and symptoms h ave been present for 1 week and indicates a pain score of Nonresponsive. MEDICAL/SURGICAL HISTORY: . Asthma. Diabetes. Hypertension. Leukemia. . Thyroidectomy. COMPARISON: C, CHEST 1V SINGLE AP, 07/07/2018. . FINDINGS: Endotracheal tube tip is a centimeter or so above the james. Feeding tube descends into the stomach. Left neck dialysis catheter is present with tip overlying right atrium. Right base pigtail thoracost josefa tube is present. Aeration is slightly improved with slight decrease in confluence of bilateral in filtrates. Cardiac contours are grossly unchanged. CONCLUSION: Slight improvement in aeration. Electronically signed by: Higinio Clarke MD Board Certified Radiologist 07/07/2018 6:39 PM EST
[2018-07-07 20:35] LABS: Amorphous Sediment,Urine Rare /hpf; Bacteria,Urine Few /hpf; Bilirubin,Urine Negative (Negative); Clarity,Urine Hazy (Clear); Color,Urine Amber (Yellw/Straw); Glucose,Urine (UA) Negative (Negative); Hyaline Casts,Urine 1 /lpf (0-3); Leukocyte Esterase,Urine Trace (Negative); Nitrite,Urine Negative (Negative); Specific Gravity,Urine 1.017 (1.002-1.035); Squamous Epithelial Cell,Urine <1 /hpf (0-5)
[2018-07-07 20:37] LABS: Creatinine,Urine Random 105 mg/dL (27-300); Sodium,Urine Random 27 meq/L
[2018-07-07] MEDS: Mirtazapine 15 MG Tablet PO SCH (20:58)
[2018-07-08] MEDS: Insulin NovoLOG Aspart Correctional Sugar Inj SQ SCH ×5 (00:18→23:23)
[2018-07-08] MEDS: Oral Hygiene Kit OROPHARYNG SCH ×5 (00:18→23:23)
[2018-07-08] MEDS: Albumin Human 25% Inj 100 ML IV.SIG SCH ×3 (03:27→18:14)
[2018-07-08] MEDS: Sod Chloride 0.9% Inj 1,000 ML IV.CONT SCH ×2 (04:25→16:28)
[2018-07-08] MEDS: Artificial Tears Opth Drops 15 ML Bottle EACH EYE SCH ×3 (04:25→21:17)
[2018-07-08] MEDS: Pantoprazole Inj 40 MG Vial IV.PUSH SCH (04:51)
[2018-07-08] MEDS: Octreotide Inj 50 MCG/ML Vial IV.PUSH SCH ×3 (06:42→21:17)
[2018-07-08] MEDS: Levothyroxine 150 MCG Tablet PO SCH (06:50)
[2018-07-08] MEDS: Allopurinol 100 MG Tablet PO SCH (08:22)
[2018-07-08] MEDS: Chlorhexidine 0.12% Oral Kit 15 ML UDC OROPHARYNG SCH ×2 (08:23→21:16)
[2018-07-08] MEDS: Nadolol 20 MG Tablet PO SCH (08:23)
[2018-07-08] MEDS ORDERED: Sod Chloride 0.9% Inj 1,000 ML OTHER PRN ×2 (10:03)
[2018-07-08] MEDS ORDERED: Heparin 10,000 UNITS/10 ML Vial (for IV use) OTHER PRN (10:03)
[2018-07-08] MEDS ORDERED: Acetaminophen 325 MG Tablet PO PRN (10:03)
[2018-07-08] MEDS ORDERED: Sod Chloride 0.9% Inj 1,000 ML IV.CONT PRN (10:03)
[2018-07-08] MEDS ORDERED: Gelatin 12 MM/7 MM Topical Foam TOPICAL PRN (10:03)
[2018-07-08 11:06] LABS: Baso # (Auto) 0.1 th/mm3 (0.0-0.2); Baso % (Auto) 0.3 % (0.0-2.0); Eos # (Auto) 1.2 th/mm3 (0.0-0.4); Eos % (Auto) 2.4 % (0.0-4.0); Hematocrit 29.7 % (35.0-46.0); Hemoglobin 9.6 gm/dL (11.6-15.3); Lymph # (Auto) 33.4 th/mm3 (1.0-4.8); Lymph % (Auto) 67.5 % (9.0-44.0); Mean Corpuscular HGB Conc 32.3 % (32.0-36.0); Mean Corpuscular Volume 96.2 fL (80.0-100.0); Mean Platelet Volume 8.8 fL (7.0-11.0); Mono # (Auto) 1.5 th/mm3 (0.0-0.9); Mono % (Auto) 3.1 % (0.0-8.0); Neut # (Auto) 13.2 th/mm3 (1.8-7.7); Neut % (Auto) 26.7 % (16.0-70.0); Platelet Count 127 th/mm3 (150-450); Red Blood Count 3.09 mil/mm3 (4.00-5.30); Red Cell Distribution Width 17.7 % (11.6-17.2); White Blood Count 49.4 th/mm3 (4.0-11.0)
[2018-07-08 11:25] LABS: Calcium 8.4 mg/dL (8.5-10.1); Carbon Dioxide 17.9 meq/L (21.0-32.0); Magnesium 1.8 mg/dL (1.5-2.5); Phosphorus 4.1 mg/dL (2.5-4.9); Potassium 4.5 meq/L (3.5-5.1)
[2018-07-08 11:38] LABS: Eosinophils 5 % (0-4); Lymphocytes 71 % (9-44); Monocytes 4 % (0-8)
[2018-07-08 11:39] LABS: Burr Cells 1+; Ovalocytes 1+
[2018-07-08 11:40] LABS: Platelet Morphology Normal (Normal); Smudge Cells Present
--- NOTE | 2018-07-08 12:22 | P.PNNP ---
Subjective Interval history: Patient was seen, no distress, orally intubated on 40% FiO2. Patient has chest tube in place. Patient had left IJ cath placed yesterday, dialysis to start today. Renal function continues to decline. <Des Arora - Last Filed: 07/08/18 12:17> Physical Exam Vital signs: Vital Signs 07/07/18 15:00 07/07/18 15:01 07/07/18 15:13 Temperature Pulse Rate 43 L 46 L Respiratory Rate 13 Blood Pressure 100/54 L 100/54 L 134/76 Pulse Oximetry 95 92 L 07/07/18 15:50 07/07/18 15:51 07/07/18 16:00 Temperature 98.9 F Pulse Rate 50 L 43 L Respiratory Rate 18 18 19 Blood Pressure 88/52 L Pulse Oximetry 98 99 07/07/18 16:01 07/07/18 17:00 07/07/18 17:01 Temperature Pulse Rate 43 L 45 L 45 L Respiratory Rate 17 18 18 Blood Pressure 124/58 L 124/58 L Pulse Oximetry 99 97 98 07/07/18 17:36 07/07/18 17:40 07/07/18 17:45 Temperature Pulse Rate 42 L 41 L 42 L Respiratory Rate 22 16 16 Blood Pressure 101/53 L 90/54 L 96/55 L Pulse Oximetry 99 98 99 07/07/18 17:50 07/07/18 17:56 07/07/18 18:00 Temperature Pulse Rate 41 L 41 L 42 L Respiratory Rate 18 9 L 15 Blood Pressure 93/51 L 88/52 L 88/52 L Pulse Oximetry 100 100 100 07/07/18 18:05 07/07/18 18:11 07/07/18 18:21 Temperature Pulse Rate 45 L 42 L 43 L Respiratory Rate 13 17 18 Blood Pressure 96/51 L 97/52 L 101/54 L Pulse Oximetry 100 100 97 07/07/18 18:31 07/07/18 19:00 07/07/18 19:31 Temperature Pulse Rate 41 L 42 L 43 L Respiratory Rate 18 18 18 Blood Pressure 103/53 L 106/55 L 116/56 L Pulse Oximetry 99 98 96 07/07/18 19:55 07/07/18 20:00 07/07/18 20:01 Temperature 98.7 F Pulse Rate 42 L 41 L 42 L Respiratory Rate 18 15 19 Blood Pressure 107/56 L Pulse Oximetry 97 97 96 07/07/18 20:30 07/07/18 21:00 07/07/18 21:01 Temperature Pulse Rate 42 L 41 L 46 L Respiratory Rate 18 18 18 Blood Pressure 109/56 L 123/65 Pulse Oximetry 95 98 99 07/07/18 21:31 07/07/18 22:00 07/07/18 22:01 Temperature Pulse Rate 41 L 41 L 41 L Respiratory Rate 19 18 19 Blood Pressure 127/58 L 98/52 L Pulse Oximetry 99 100 100 07/07/18 22:30 07/07/18 23:00 07/07/18 23:05 Temperature Pulse Rate 41 L 41 L 42 L Respiratory Rate 15 14 18 Blood Pressure 100/53 L 103/57 L Pulse Oximetry 100 100 07/07/18 23:30 07/08/18 00:00 07/08/18 00:03 Temperature 97.6 F Pulse Rate 46 L 44 L 43 L Respiratory Rate 19 11 L 11 L Blood Pressure 100/60 125/58 L Pulse Oximetry 93 L 95 96 07/08/18 00:31 07/08/18 01:00 07/08/18 01:01 Temperature Pulse Rate 43 L 42 L 42 L Respiratory Rate 19 18 17 Blood Pressure 112/52 L 107/54 L Pulse Oximetry 98 99 99 07/08/18 01:18 07/08/18 01:31 07/08/18 02:00 Temperature Pulse Rate 43 L 43 L Respiratory Rate 18 16 17 Blood Pressure 113/56 L 121/60 Pulse Oximetry 99 96 95 07/08/18 02:31 07/08/18 03:00 07/08/18 03:37 Temperature Pulse Rate 41 L 41 L 41 L Respiratory Rate 20 19 16 Blood Pressure 104/51 L 100/52 L 116/56 L Pulse Oximetry 100 100 98 07/08/18 03:51 07/08/18 04:00 07/08/18 04:01 Temperature Pulse Rate 41 L 42 L 42 L Respiratory Rate 18 18 18 Blood Pressure 106/54 L 106/54 L Pulse Oximetry 99 97 97 07/08/18 04:30 07/08/18 05:04 07/08/18 05:31 Temperature Pulse Rate 42 L 42 L Respiratory Rate 16 18 Blood Pressure 118/57 L 95/51 L Pulse Oximetry 96 95 07/08/18 06:10 07/08/18 06:31 07/08/18 07:00 Temperature Pulse Rate 43 L 48 L 41 L Respiratory Rate 18 20 18 Blood Pressure 126/59 L Pulse Oximetry 95 95 99 07/08/18 07:01 07/08/18 07:30 07/08/18 07:59 Temperature Pulse Rate 42 L 41 L Respiratory Rate 17 20 18 Blood Pressure 100/52 L 97/53 L Pulse Oximetry 99 100 99 07/08/18 08:00 07/08/18 08:02 07/08/18 08:31 Temperature 94.8 F L Pulse Rate 42 L 42 L 43 L Respiratory Rate 22 18 14 Blood Pressure 102/54 L 117/56 L Pulse Oximetry 100 95 07/08/18 09:00 07/08/18 09:01 07/08/18 09:30 Temperature Pulse Rate 42 L 42 L 43 L Respiratory Rate 17 18 18 Blood Pressure 95/55 L 103/51 L Pulse Oximetry 96 96 95 07/08/18 10:00 07/08/18 10:33 07/08/18 11:51 Temperature Pulse Rate 43 L 43 L Respiratory Rate 18 18 18 Blood Pressure 106/58 L 106/53 L Pulse Oximetry 96 97 96 Intake & Output 07/07/18 07/08/18 07/08/18 18:59 06:59 18:59 Intake Total 1350 / 1350 1318 / 1318 100 / 100 Output Total 950 / 950 300 / 300 Balance 400 / 400 1018 / 1018 100 / 100 Weight 79 kg Intake: IV 1350 / 1350 1100 / 1100 100 / 100 NS Inj 1,000 ML @ 84 mls/hr IV. 1000 / 1000 1000 / 1000 CONT .[id number] [facility] Rx#:[id number] Flexbumin 25% Inj 100 ML @ 60 100 / 100 100 / 100 100 / 100 mls/hr IV.SIG Q8H [facility] Rx#: [id number] fentaNYL 10 mcg/mL Premix Drip 250 / 250 2,500 mcg In 250 ml @ 50 MCG/HR 5 mls/hr IV.SIG TITRATE PRN Rx #:[id number] Oral 0 / 0 0 / 0 Tube Feeding 218 / 218 Output: Urine Amount (Catheter) 550 / 550 Straight 550 / 550 Chest Tube Drainage 400 / 400 300 / 300 #1 Right Mid-Axillary Chest 400 / 400 300 / 300 Other: Date of Last Bowel Movement 07/05/18 07/05/18 # Bowel Movements 0 0 Narrative: GENERAL: Chronically ill appearing. SKIN: Pale. CARDIOVASCULAR: Regular rate and rhythm. RESPIRATORY: Decreased breath sounds. Orally intubated. Chest tube in place with yellow drainage. ABDOMEN: Distended. NEUROLOGICAL: On sedation, not responsive. PSYCHIATRIC: Unable to access. - Urinary Catheter Management Straight Cath placed during this visit: yes, but has since been removed by the nurse Reason for continuing: Not indwelling catheter Insertion date: 07/07/18 Insertion time: 18:00 Removal date: 07/07/18 Removal time: 18:20 <Des Arora - Last Filed: 07/08/18 12:17> Vital signs: Vital Signs 07/07/18 17:36 07/07/18 17:40 07/07/18 17:45 Temperature Pulse Rate 42 L 41 L 42 L Respiratory Rate 22 16 16 Blood Pressure 101/53 L 90/54 L 96/55 L Pulse Oximetry 99 98 99 07/07/18 17:50 07/07/18 17:56 07/07/18 18:00 Temperature Pulse Rate 41 L 41 L 42 L Respiratory Rate 18 9 L 15 Blood Pressure 93/51 L 88/52 L 88/52 L Pulse Oximetry 100 100 100 07/07/18 18:05 07/07/18 18:11 07/07/18 18:21 Temperature Pulse Rate 45 L 42 L 43 L Respiratory Rate 13 17 18 Blood Pressure 96/51 L 97/52 L 101/54 L Pulse Oximetry 100 100 97 07/07/18 18:31 07/07/18 19:00 07/07/18 19:31 Temperature Pulse Rate 41 L 42 L 43 L Respiratory Rate 18 18 18 Blood Pressure 103/53 L 106/55 L 116/56 L Pulse Oximetry 99 98 96 07/07/18 19:55 07/07/18 20:00 07/07/18 20:01 Temperature 98.7 F Pulse Rate 42 L 41 L 42 L Respiratory Rate 18 15 19 Blood Pressure 107/56 L Pulse Oximetry 97 97 96 07/07/18 20:30 07/07/18 21:00 07/07/18 21:01 Temperature Pulse Rate 42 L 41 L 46 L Respiratory Rate 18 18 18 Blood Pressure 109/56 L 123/65 Pulse Oximetry 95 98 99 07/07/18 21:31 07/07/18 22:00 07/07/18 22:01 Temperature Pulse Rate 41 L 41 L 41 L Respiratory Rate 19 18 19 Blood Pressure 127/58 L 98/52 L Pulse Oximetry 99 100 100 07/07/18 22:30 07/07/18 23:00 07/07/18 23:05 Temperature Pulse Rate 41 L 41 L 42 L Respiratory Rate 15 14 18 Blood Pressure 100/53 L 103/57 L Pulse Oximetry 100 100 07/07/18 23:30 07/08/18 00:00 07/08/18 00:03 Temperature 97.6 F Pulse Rate 46 L 44 L 43 L Respiratory Rate 19 11 L 11 L Blood Pressure 100/60 125/58 L Pulse Oximetry 93 L 95 96 07/08/18 00:31 07/08/18 01:00 07/08/18 01:01 Temperature Pulse Rate 43 L 42 L 42 L Respiratory Rate 19 18 17 Blood Pressure 112/52 L 107/54 L Pulse Oximetry 98 99 99 07/08/18 01:18 07/08/18 01:31 07/08/18 02:00 Temperature Pulse Rate 43 L 43 L Respiratory Rate 18 16 17 Blood Pressure 113/56 L 121/60 Pulse Oximetry 99 96 95 07/08/18 02:31 07/08/18 03:00 07/08/18 03:37 Temperature Pulse Rate 41 L 41 L 41 L Respiratory Rate 20 19 16 Blood Pressure 104/51 L 100/52 L 116/56 L Pulse Oximetry 100 100 98 07/08/18 03:51 07/08/18 04:00 07/08/18 04:01 Temperature Pulse Rate 41 L 42 L 42 L Respiratory Rate 18 18 18 Blood Pressure 106/54 L 106/54 L Pulse Oximetry 99 97 97 07/08/18 04:30 07/08/18 05:04 07/08/18 05:31 Temperature Pulse Rate 42 L 42 L Respiratory Rate 16 18 Blood Pressure 118/57 L 95/51 L Pulse Oximetry 96 95 07/08/18 06:10 07/08/18 06:31 07/08/18 07:00 Temperature Pulse Rate 43 L 48 L 41 L Respiratory Rate 18 20 18 Blood Pressure 126/59 L Pulse Oximetry 95 95 99 07/08/18 07:01 07/08/18 07:30 07/08/18 07:59 Temperature Pulse Rate 42 L 41 L Respiratory Rate 17 20 18 Blood Pressure 100/52 L 97/53 L Pulse Oximetry 99 100 99 07/08/18 08:00 07/08/18 08:02 07/08/18 08:31 Temperature 94.8 F L Pulse Rate 42 L 42 L 43 L Respiratory Rate 22 18 14 Blood Pressure 102/54 L 117/56 L Pulse Oximetry 100 95 07/08/18 09:00 07/08/18 09:01 07/08/18 09:30 Temperature Pulse Rate 42 L 42 L 43 L Respiratory Rate 17 18 18 Blood Pressure 95/55 L 103/51 L Pulse Oximetry 96 96 95 07/08/18 10:00 07/08/18 10:33 07/08/18 11:00 Temperature Pulse Rate 43 L 43 L 42 L Respiratory Rate 18 18 15 Blood Pressure 106/58 L 106/53 L Pulse Oximetry 96 97 99 07/08/18 11:01 07/08/18 11:31 07/08/18 11:51 Temperature Pulse Rate 42 L 42 L Respiratory Rate 18 19 18 Blood Pressure 98/51 L 138/59 L Pulse Oximetry 99 98 96 07/08/18 12:00 07/08/18 12:01 07/08/18 12:31 Temperature 94.5 F L Pulse Rate 45 L 45 L 45 L Respiratory Rate 19 18 15 Blood Pressure 117/55 L 95/50 L Pulse Oximetry 96 95 97 07/08/18 13:00 07/08/18 13:30 07/08/18 13:45 Temperature Pulse Rate 42 L 45 L 44 L Respiratory Rate 20 11 L 14 Blood Pressure 98/55 L 96/51 L 92/53 L Pulse Oximetry 96 93 L 95 07/08/18 14:00 07/08/18 14:15 07/08/18 14:30 Temperature Pulse Rate 43 L 44 L 45 L Respiratory Rate 13 14 15 Blood Pressure 86/49 L 84/51 L 83/51 L Pulse Oximetry 95 93 L 93 L 07/08/18 14:45 07/08/18 15:00 07/08/18 15:15 Temperature Pulse Rate 47 L 45 L 57 L Respiratory Rate 13 14 15 Blood Pressure 86/53 L 88/55 L 95/53 L Pulse Oximetry 94 L 93 L 95 07/08/18 15:30 07/08/18 16:00 07/08/18 16:02 Temperature 98.2 F Pulse Rate 54 L 60 60 Respiratory Rate 18 Blood Pressure 92/50 L 112/56 L Pulse Oximetry 95 95 Intake & Output 07/07/18 07/08/18 07/08/18 18:59 06:59 18:59 Intake Total 1350 / 1350 1318 / 1318 1200 / 1200 Output Total 950 / 950 300 / 300 1999 / 1999 Balance 400 / 400 1018 / 1018 -800 / -800 Weight 79 kg Intake: IV 1350 / 1350 1100 / 1100 1200 / 1200 NS Inj 1,000 ML @ 84 mls/hr IV. 1000 / 1000 1000 / 1000 1000 / 1000 CONT .[id number] [facility] Rx#:[id number] Flexbumin 25% Inj 100 ML @ 60 100 / 100 100 / 100 200 / 200 mls/hr IV.SIG Q8H [facility] Rx#: [id number] fentaNYL 10 mcg/mL Premix Drip 250 / 250 2,500 mcg In 250 ml @ 50 MCG/HR 5 mls/hr IV.SIG TITRATE PRN Rx #:[id number] Oral 0 / 0 0 / 0 Tube Feeding 218 / 218 Output: Hemodialysis Amount 1999 Urine Amount (Catheter) 550 / 550 Straight 550 / 550 Chest Tube Drainage 400 / 400 300 / 300 #1 Right Mid-Axillary Chest 400 / 400 300 / 300 Other: Date of Last Bowel Movement 07/05/18 07/05/18 # Bowel Movements 0 0 - Urinary Catheter Management Straight Cath placed during this visit: no <Papi Busby - Last Filed: 07/08/18 17:08> Assessment and Plan - Assessment (1) Acute on chronic kidney failure Code(s): N17.9 - Acute kidney failure, unspecified; N18.9 - Chronic kidney disease, unspecified Status: Acute Plan: Patient has chronic kidney disease and possibly has ATN. Patient's renal function continues to decline. Patient is oliguric. 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 Patient is not a good candidate for dialysis, patient and family previously informed. Left IJ cath placed yesterday. Patient to be dialyzed today. Monitor urine output. Patient started on Lasix yesterday. Poor prognosis. (2) Diabetes Code(s): E11.9 - Type 2 diabetes mellitus without complications Status: Acute Plan: Insulin coverage to maintain glucose levels between 140 and 180. (3) Abdominal distension Code(s): R14.0 - Abdominal distension (gaseous) Status: Acute Plan: s/p paracentesis x2. - Plan S/P TIPS procedure 07/01/18 <Des Arora - Last Filed: 07/08/18 12:17> - Assessment (1) Acute on chronic kidney failure Code(s): N17.9 - Acute kidney failure, unspecified; N18.9 - Chronic kidney disease, unspecified Status: Acute (2) Diabetes Code(s): E11.9 - Type 2 diabetes mellitus without complications Status: Acute (3) Abdominal distension Code(s): R14.0 - Abdominal distension (gaseous) Status: Acute - Attending Attestation patient was seen and examined. Dialysis is initiated. Very poor prognosis due to underlying Cirrhosis of the liver. Dialysis not recommended. Dialysis will not change outcome. wanted all aggressive measures continued. <Papi Busby - Last Filed: 07/08/18 17:08>
--- NOTE | 2018-07-08 12:48 | P.PNCC ---
Subjective Subjective Remarks/Hospital Course: This is a 72-year-old female. Admission 06/25/2008. Past medical history includes stage 0 CLL, asthma, diabetes, gout, hypertension and hypothyroidism. She initially presented to the hospital complaining of a several month history of progressive shortness of breath. This is associated orthopnea and difficulty ambulation. A dry nonproductive cough as well. No chest pain. On admission, patient was noted to have moderate ascites and a significant right pleural effusion. She received paracentesis on 06/25 5700 cc and on 06/28 5900 cc. She had a right-sided thoracentesis 1200 cc on 06/25. CT abdomen pelvis showed likely liver cirrhosis and moderate ascites. She also had a CT of the abdomen and pelvis which did not show any lymphadenopathy. She has not been febrile. She has had thoracentesis and they took out 1.2 L of fluid. 06/28 had an upper endoscopy. EGD revealed esophagitis, distal esophageal ulcer, portal hypertensive gastropathy. She started worsening renal failure and worsening leukocytosis. Due to the possibility of hepatorenal syndrome a TIPS was performed by IR 07/01. She has been on beta-ilana, diuretics and midodrine in the interim along with octreotide. Patient been pancultured which no growth today. Current levofloxacin and metronidazole. No obvious source of infection at the present time. The past couple nights patient is been in ICU. She is become more confused and will not keep her BiPAP on due to agitation. She is received 2 stenosis of lorazepam tonight. I was asked to see the patient due to worsening respiratory issues including tachypnea and altered mental status including unresponsive. PH is 7.35. PCO2 47. PO2 74. Base index -6. She is on a nonrebreather. She is intubated using 20 mg etomidate and 8.0 ET tube at 23 cm at lip. They were unable to pass an NG tube.. 07/07/18: Remains intubated sedated. Renal function is worsening creatinine close to 6 now. Remains anuric. Large right pleural effusion drained yesterday 1.4 L since pigtail chest tube placement. Currently sedated with fentanyl will wake up follows some commands 07/08/18: Patient remains intubated mildly sedated with fentanyl infusion. Remains anuric with worsening renal function. HD catheter was placed yesterday. Will initiate hemodialysis today per nephrology. Right chest tube with 700 mL output in the last 24 hours Objective Vital Signs / I&O: Vital Signs 07/07/18 15:00 07/07/18 15:01 07/07/18 15:13 Temperature Pulse Rate 43 L 46 L Respiratory Rate 13 Blood Pressure 100/54 L 100/54 L 134/76 Pulse Oximetry 95 92 L 07/07/18 15:50 07/07/18 15:51 07/07/18 16:00 Temperature 98.9 F Pulse Rate 50 L 43 L Respiratory Rate 18 18 19 Blood Pressure 88/52 L Pulse Oximetry 98 99 07/07/18 16:01 07/07/18 17:00 07/07/18 17:01 Temperature Pulse Rate 43 L 45 L 45 L Respiratory Rate 17 18 18 Blood Pressure 124/58 L 124/58 L Pulse Oximetry 99 97 98 07/07/18 17:36 07/07/18 17:40 07/07/18 17:45 Temperature Pulse Rate 42 L 41 L 42 L Respiratory Rate 22 16 16 Blood Pressure 101/53 L 90/54 L 96/55 L Pulse Oximetry 99 98 99 07/07/18 17:50 07/07/18 17:56 07/07/18 18:00 Temperature Pulse Rate 41 L 41 L 42 L Respiratory Rate 18 9 L 15 Blood Pressure 93/51 L 88/52 L 88/52 L Pulse Oximetry 100 100 100 07/07/18 18:05 07/07/18 18:11 07/07/18 18:21 Temperature Pulse Rate 45 L 42 L 43 L Respiratory Rate 13 17 18 Blood Pressure 96/51 L 97/52 L 101/54 L Pulse Oximetry 100 100 97 07/07/18 18:31 07/07/18 19:00 07/07/18 19:31 Temperature Pulse Rate 41 L 42 L 43 L Respiratory Rate 18 18 18 Blood Pressure 103/53 L 106/55 L 116/56 L Pulse Oximetry 99 98 96 07/07/18 19:55 07/07/18 20:00 07/07/18 20:01 Temperature 98.7 F Pulse Rate 42 L 41 L 42 L Respiratory Rate 18 15 19 Blood Pressure 107/56 L Pulse Oximetry 97 97 96 07/07/18 20:30 07/07/18 21:00 07/07/18 21:01 Temperature Pulse Rate 42 L 41 L 46 L Respiratory Rate 18 18 18 Blood Pressure 109/56 L 123/65 Pulse Oximetry 95 98 99 07/07/18 21:31 07/07/18 22:00 07/07/18 22:01 Temperature Pulse Rate 41 L 41 L 41 L Respiratory Rate 19 18 19 Blood Pressure 127/58 L 98/52 L Pulse Oximetry 99 100 100 07/07/18 22:30 07/07/18 23:00 07/07/18 23:05 Temperature Pulse Rate 41 L 41 L 42 L Respiratory Rate 15 14 18 Blood Pressure 100/53 L 103/57 L Pulse Oximetry 100 100 07/07/18 23:30 07/08/18 00:00 07/08/18 00:03 Temperature 97.6 F Pulse Rate 46 L 44 L 43 L Respiratory Rate 19 11 L 11 L Blood Pressure 100/60 125/58 L Pulse Oximetry 93 L 95 96 07/08/18 00:31 07/08/18 01:00 07/08/18 01:01 Temperature Pulse Rate 43 L 42 L 42 L Respiratory Rate 19 18 17 Blood Pressure 112/52 L 107/54 L Pulse Oximetry 98 99 99 07/08/18 01:18 07/08/18 01:31 07/08/18 02:00 Temperature Pulse Rate 43 L 43 L Respiratory Rate 18 16 17 Blood Pressure 113/56 L 121/60 Pulse Oximetry 99 96 95 07/08/18 02:31 07/08/18 03:00 07/08/18 03:37 Temperature Pulse Rate 41 L 41 L 41 L Respiratory Rate 20 19 16 Blood Pressure 104/51 L 100/52 L 116/56 L Pulse Oximetry 100 100 98 07/08/18 03:51 07/08/18 04:00 07/08/18 04:01 Temperature Pulse Rate 41 L 42 L 42 L Respiratory Rate 18 18 18 Blood Pressure 106/54 L 106/54 L Pulse Oximetry 99 97 97 07/08/18 04:30 07/08/18 05:04 07/08/18 05:31 Temperature Pulse Rate 42 L 42 L Respiratory Rate 16 18 Blood Pressure 118/57 L 95/51 L Pulse Oximetry 96 95 07/08/18 06:10 07/08/18 06:31 07/08/18 07:00 Temperature Pulse Rate 43 L 48 L 41 L Respiratory Rate 18 20 18 Blood Pressure 126/59 L Pulse Oximetry 95 95 99 07/08/18 07:01 07/08/18 07:30 07/08/18 07:59 Temperature Pulse Rate 42 L 41 L Respiratory Rate 17 20 18 Blood Pressure 100/52 L 97/53 L Pulse Oximetry 99 100 99 07/08/18 08:00 07/08/18 08:02 07/08/18 08:31 Temperature 94.8 F L Pulse Rate 42 L 42 L 43 L Respiratory Rate 22 18 14 Blood Pressure 102/54 L 117/56 L Pulse Oximetry 100 95 07/08/18 09:00 07/08/18 09:01 07/08/18 09:30 Temperature Pulse Rate 42 L 42 L 43 L Respiratory Rate 17 18 18 Blood Pressure 95/55 L 103/51 L Pulse Oximetry 96 96 95 07/08/18 10:00 07/08/18 10:33 07/08/18 11:51 Temperature Pulse Rate 43 L 43 L Respiratory Rate 18 18 18 Blood Pressure 106/58 L 106/53 L Pulse Oximetry 96 97 96 Intake & Output 07/07/18 07/08/18 07/08/18 18:59 06:59 18:59 Intake Total 1350 / 1350 1318 / 1318 100 / 100 Output Total 950 / 950 300 / 300 Balance 400 / 400 1018 / 1018 100 / 100 Weight 79 kg Intake: IV 1350 / 1350 1100 / 1100 100 / 100 NS Inj 1,000 ML @ 84 mls/hr IV. 1000 / 1000 1000 / 1000 CONT .[id number] [facility] Rx#:[id number] Flexbumin 25% Inj 100 ML @ 60 100 / 100 100 / 100 100 / 100 mls/hr IV.SIG Q8H [facility] Rx#: [id number] fentaNYL 10 mcg/mL Premix Drip 250 / 250 2,500 mcg In 250 ml @ 50 MCG/HR 5 mls/hr IV.SIG TITRATE PRN Rx #:[id number] Oral 0 / 0 0 / 0 Tube Feeding 218 / 218 Output: Urine Amount (Catheter) 550 / 550 Straight 550 / 550 Chest Tube Drainage 400 / 400 300 / 300 #1 Right Mid-Axillary Chest 400 / 400 300 / 300 Other: Date of Last Bowel Movement 07/05/18 07/05/18 # Bowel Movements 0 0 Result Diagrams: 07/08/18 10:27 07/08/18 10:27 Objective Remarks: - Constitutional Lying in bed appears ill anuric - Routine HEENT Exam Head: Present: normocephalic, atraumatic Eye: Present: EOMI, PERRL ENT: Present: Orotracheally intubated - Routine Neck Exam Present: supple, full ROM. Absent: JVD Bandage from tips in right neck - Routine Respiratory Exam Present: patient mechanically ventilated, crackles, distant breath sounds, diminished air movement - Routine Cardiovascular Exam Present: RRR, S1, S2. Absent: murmur - Routine Abdominal Exam Present: soft, normoactive bowel sounds - Routine Skin Exam Present: intact, dry. Absent: cyanosis, erythema - Routine Neurological Exam Intubated sedated wakes up easily follows commands x4 Assessment and Plan - Assessment and Plan Plan: Neuro/Psych: Acute encephalopathy likely secondary to CO2 retention Currently on fentanyl drips for sedation/analgesia while intubated. Goal of RASS -1. Daily sedation vacation Ammonia level <10 CT brain 06/25 revealed no acute intracranial findings On lightening sedation patient continues to follow commands intermittently CV: Essential hypertension Bradycardia Currently on nadolol 20 mg daily-hold due to bradycardia, continue midodrine 10 mg 3 times daily Increased Lasix to 60 mg IV every 6 hours with no response Echocardiogram -EF 55-60%. Normal LV systolic function. Trace mitral valve regurgitation. Mitral annular calcification is present. Cannot rule out a small mobile echodensity on the left ventricular side of the anterior leaflet towards the left ventricular outflow tract in parasternal views. Clinical correlation recommended There is trace tricuspid valve regurgitation. The estimated pulmonary arterial pressure is 38 mmHg. Blood cultures have been negative Resp: Acute hypoxemic respiratory failure Right pleural effusion status post thoracentesis 06/25 -1200 cc, right pigtail chest tube placement 07/06/2018 [facility] ventilation. Head of bed at 30 degrees Daily CPAP trials Ventilator bundle. Albuterol/ipratropium aerosols every 4 hours with albuterol every 2 hours as needed dyspnea Follow postintubation chest x-ray and ABG Right pigtail chest tube placed yesterday 07/06/2018, with 1.4 L drained. 700 mL in 24 hours output Evaluate left pleural effusion with ultrasound-small effusion GI: Portal hypertensive gastropathy LA class B esophagitis Distal esophageal ulcer Ascites -paracentesis 5700 cc 06/25. 5900 cc 06/28 Status post TIPS 07/01 for possible hepatorenal syndrome CT abdomen/pelvis 06/25 revealed cirrhotic type liver. Left-sided hydronephrosis. Moderate ascites EGD 06/28 revealed LA class B esophagitis. 7 mm distal esophageal ulcer. Portal hypertensive gastropathy. H. pylori negative. Increased Lasix to 60 mg every 6 hours continue, Aldactone and Midodrine. Discontinue Aldactone due to worsening renal failure Pantoprazole 40 mg IV daily. On octreotide 50 mcg IV every 8 hours for portal hypertension gastropathy, HRS Actually being followed by GI. Negative CA-19-9, alpha-fetoprotein, beta-hCG. Negative hepatitis panel Endo: Diabetes mellitus Hypothyroidism Gout Sliding scale insulin Accu-Cheks to maintain euglycemia/low every 6 hours aspart insulin Holding glipizide 5 mg daily/home medication Patient is on levothyroxine 300 mcg daily. Patient is on allopurinol at home. Hold due to renal failure Renal: Acute kidney failure I discussed with patient's he wants to pursue dialysis Monitor urine output. Accurate I's and O's. Hemodialysis catheter placed, start hemodialysis today Madsen catheter be placed for accurate I's and O's in a critical patient Avoid nephrotoxic medication No hydronephrosis on CT abdomen/pelvis on admission Nephrology following Heme: CLL [id number] score 0 Leukocytosis Normocytic anemia Followed by Dr. Flores/oncology. Follow-up on coags, CBC this a.m. Currently no indication for transfusion of blood products at this time. ID: Followed by infectious disease. Currently levofloxacin and metronidazole Peritoneal and pleural fluid 06/25 no growth today. Pleural fluid no growth to date F/U blood cultures x2, sputum, UA and influenza a and B now Access-utilize peripheral IV. Central line if indicated Prophylaxis -GI -pantoprazole -DVT -SCDs/heparin subcu Consult 35 minutes critical care time
--- NOTE | 2018-07-08 13:32 | P.PNID ---
Subjective Remarks: Patient is a 72-year-old female presented to the hospital complaining of shortness of breath. She has had problem with shortness of breath over the last several months, but it has progressively worsened that she has difficulty ambulating. She gets orthopnea. She occasionally has cough but no phlegm. Denies any chest pain. She admits to some intermittent low-grade fevers. It was also noted that her abdomen has been more distended. On evaluation she was found to have pleural effusions as well as ascites and liver cirrhosis on ultrasound. She also had a CT of the abdomen and pelvis which did not show any lymphadenopathy. She has not been febrile. She has had thoracentesis and they took out 1.2 L of fluid. Paracentesis and they took out 5.7 L of ascites. Since admission she has had leukocytosis of 20,000 and higher. 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 She has not required any treatment for her CLL. Patient currently she has had upper endoscopy. She has had some diarrhea. She is noted increased abdominal girth again. Patient also has had increasing creatinine, and her urine output has been decreasing. Stool for C. difficile is negative. I do not have a urinalysis. Her initial chest x-ray on admission showing a right base infiltrate and effusion. Her last chest x-ray after she has had thoracenteses showed hypoaeration, with no infiltrates seen. Patient has been on Rocephin since admission. Infectious disease consultation has been requested to assist with evaluation and treatment of leukocytosis. Notes reviewed Sedated On the vent, FiO2 0.4 Hypothermic, on cooling blanket To be started on HD Creatinine rising, UO low WBC same at 49K BC negative Sputum normal yaneth Pleural fluid negative UA unremarkable C/S negative so far CXR looks same Pigtail cath placed on her R chest BP ok Had TIPS procedure 07/01 Antibiotics: Levaquin Flagyl Lines: LIJ vascath PIV Past Medical History: Asthma Diabetes Gout Hypertension Leukemia H/O foot surgery H/O thyroidectomy Allergies/Adverse Reactions: Allergies No Known Allergies Allergy (Verified 06/25/18 05:25) Objective Vital Signs 07/07/18 15:00 07/07/18 15:01 07/07/18 15:13 Temperature Pulse Rate 43 L 46 L Respiratory Rate 13 Blood Pressure 100/54 L 100/54 L 134/76 Pulse Oximetry 95 92 L 07/07/18 15:50 07/07/18 15:51 07/07/18 16:00 Temperature 98.9 F Pulse Rate 50 L 43 L Respiratory Rate 18 18 19 Blood Pressure 88/52 L Pulse Oximetry 98 99 07/07/18 16:01 07/07/18 17:00 07/07/18 17:01 Temperature Pulse Rate 43 L 45 L 45 L Respiratory Rate 17 18 18 Blood Pressure 124/58 L 124/58 L Pulse Oximetry 99 97 98 07/07/18 17:36 07/07/18 17:40 07/07/18 17:45 Temperature Pulse Rate 42 L 41 L 42 L Respiratory Rate 22 16 16 Blood Pressure 101/53 L 90/54 L 96/55 L Pulse Oximetry 99 98 99 07/07/18 17:50 07/07/18 17:56 07/07/18 18:00 Temperature Pulse Rate 41 L 41 L 42 L Respiratory Rate 18 9 L 15 Blood Pressure 93/51 L 88/52 L 88/52 L Pulse Oximetry 100 100 100 07/07/18 18:05 07/07/18 18:11 07/07/18 18:21 Temperature Pulse Rate 45 L 42 L 43 L Respiratory Rate 13 17 18 Blood Pressure 96/51 L 97/52 L 101/54 L Pulse Oximetry 100 100 97 07/07/18 18:31 07/07/18 19:00 07/07/18 19:31 Temperature Pulse Rate 41 L 42 L 43 L Respiratory Rate 18 18 18 Blood Pressure 103/53 L 106/55 L 116/56 L Pulse Oximetry 99 98 96 07/07/18 19:55 07/07/18 20:00 07/07/18 20:01 Temperature 98.7 F Pulse Rate 42 L 41 L 42 L Respiratory Rate 18 15 19 Blood Pressure 107/56 L Pulse Oximetry 97 97 96 07/07/18 20:30 07/07/18 21:00 07/07/18 21:01 Temperature Pulse Rate 42 L 41 L 46 L Respiratory Rate 18 18 18 Blood Pressure 109/56 L 123/65 Pulse Oximetry 95 98 99 07/07/18 21:31 07/07/18 22:00 07/07/18 22:01 Temperature Pulse Rate 41 L 41 L 41 L Respiratory Rate 19 18 19 Blood Pressure 127/58 L 98/52 L Pulse Oximetry 99 100 100 07/07/18 22:30 07/07/18 23:00 07/07/18 23:05 Temperature Pulse Rate 41 L 41 L 42 L Respiratory Rate 15 14 18 Blood Pressure 100/53 L 103/57 L Pulse Oximetry 100 100 07/07/18 23:30 07/08/18 00:00 07/08/18 00:03 Temperature 97.6 F Pulse Rate 46 L 44 L 43 L Respiratory Rate 19 11 L 11 L Blood Pressure 100/60 125/58 L Pulse Oximetry 93 L 95 96 07/08/18 00:31 07/08/18 01:00 07/08/18 01:01 Temperature Pulse Rate 43 L 42 L 42 L Respiratory Rate 19 18 17 Blood Pressure 112/52 L 107/54 L Pulse Oximetry 98 99 99 07/08/18 01:18 07/08/18 01:31 07/08/18 02:00 Temperature Pulse Rate 43 L 43 L Respiratory Rate 18 16 17 Blood Pressure 113/56 L 121/60 Pulse Oximetry 99 96 95 07/08/18 02:31 07/08/18 03:00 07/08/18 03:37 Temperature Pulse Rate 41 L 41 L 41 L Respiratory Rate 20 19 16 Blood Pressure 104/51 L 100/52 L 116/56 L Pulse Oximetry 100 100 98 07/08/18 03:51 07/08/18 04:00 07/08/18 04:01 Temperature Pulse Rate 41 L 42 L 42 L Respiratory Rate 18 18 18 Blood Pressure 106/54 L 106/54 L Pulse Oximetry 99 97 97 07/08/18 04:30 07/08/18 05:04 07/08/18 05:31 Temperature Pulse Rate 42 L 42 L Respiratory Rate 16 18 Blood Pressure 118/57 L 95/51 L Pulse Oximetry 96 95 07/08/18 06:10 07/08/18 06:31 07/08/18 07:00 Temperature Pulse Rate 43 L 48 L 41 L Respiratory Rate 18 20 18 Blood Pressure 126/59 L Pulse Oximetry 95 95 99 07/08/18 07:01 07/08/18 07:30 07/08/18 07:59 Temperature Pulse Rate 42 L 41 L Respiratory Rate 17 20 18 Blood Pressure 100/52 L 97/53 L Pulse Oximetry 99 100 99 07/08/18 08:00 07/08/18 08:02 07/08/18 08:31 Temperature 94.8 F L Pulse Rate 42 L 42 L 43 L Respiratory Rate 22 18 14 Blood Pressure 102/54 L 117/56 L Pulse Oximetry 100 95 07/08/18 09:00 07/08/18 09:01 07/08/18 09:30 Temperature Pulse Rate 42 L 42 L 43 L Respiratory Rate 17 18 18 Blood Pressure 95/55 L 103/51 L Pulse Oximetry 96 96 95 07/08/18 10:00 07/08/18 10:33 07/08/18 11:00 Temperature Pulse Rate 43 L 43 L 42 L Respiratory Rate 18 18 15 Blood Pressure 106/58 L 106/53 L Pulse Oximetry 96 97 99 07/08/18 11:01 07/08/18 11:31 07/08/18 11:51 Temperature Pulse Rate 42 L 42 L Respiratory Rate 18 19 18 Blood Pressure 98/51 L 138/59 L Pulse Oximetry 99 98 96 07/08/18 12:00 07/08/18 12:01 07/08/18 12:31 Temperature 94.5 F L Pulse Rate 45 L 45 L 45 L Respiratory Rate 19 18 15 Blood Pressure 117/55 L 95/50 L Pulse Oximetry 96 95 97 Intake & Output 07/07/18 07/08/18 07/08/18 18:59 06:59 18:59 Intake Total 1350 / 1350 1318 / 1318 100 / 100 Output Total 950 / 950 300 / 300 Balance 400 / 400 1018 / 1018 100 / 100 Weight 79 kg Intake: IV 1350 / 1350 1100 / 1100 100 / 100 NS Inj 1,000 ML @ 84 mls/hr IV. 1000 / 1000 1000 / 1000 CONT .[id number] [facility] Rx#:[id number] Flexbumin 25% Inj 100 ML @ 60 100 / 100 100 / 100 100 / 100 mls/hr IV.SIG Q8H [facility] Rx#: [id number] fentaNYL 10 mcg/mL Premix Drip 250 / 250 2,500 mcg In 250 ml @ 50 MCG/HR 5 mls/hr IV.SIG TITRATE PRN Rx #:[id number] Oral 0 / 0 0 / 0 Tube Feeding 218 / 218 Output: Urine Amount (Catheter) 550 / 550 Straight 550 / 550 Chest Tube Drainage 400 / 400 300 / 300 #1 Right Mid-Axillary Chest 400 / 400 300 / 300 Other: Date of Last Bowel Movement 07/05/18 07/05/18 # Bowel Movements 0 0 07/06/18 05:15 Blood - Peripheral Aerobic Blood Culture - Preliminary No growth in 2 days 07/06/18 05:15 Blood - Peripheral Anaerobic Blood Culture - Preliminary No growth in 2 days 07/06/18 05:20 Blood - Peripheral Aerobic Blood Culture - Preliminary No growth in 2 days 07/06/18 05:20 Blood - Peripheral Anaerobic Blood Culture - Preliminary No growth in 2 days 07/06/18 15:15 Fluid - Pleural fluid Gram Stain - Final 07/06/18 15:15 Fluid - Pleural fluid Body Fluid Culture - Preliminary No growth in 48 hours 07/06/18 11:50 Sputum - Endotracheal Gram Stain - Final 07/06/18 11:50 Sputum - Endotracheal Sputum Culture - Final Moderate growth normal respiratory yaneth 07/07/18 18:30 Catheterized Urine Urine Culture - Pending 07/06/18 15:15 Fluid - Pleural fluid Fungal Smear - Final No fungal elements seen 07/06/18 15:15 Fluid - Pleural fluid Fungal Culture - Pending 07/06/18 15:15 Fluid - Pleural fluid Acid Fast Bacilli Smear - Pending 07/06/18 15:15 Fluid - Pleural fluid Mycobacterial Culture - Pending 07/06/18 08:10 Nasal Wash Influenza Types A,B Antigen - Final Negative for FLU A and B antigen Infection due to influenza A or B cannot be ruled out since the antigen present in the sample may be below the detection limit of the test. Lab - Hematology Results 07/07/18 07/08/18 04:24 10:27 WBC 42.5 H 49.4 H RBC 3.00 L 3.09 L Hgb 9.2 L 9.6 L Hct 28.3 L 29.7 L MCV 94.3 96.2 MCH 30.6 31.0 MCHC 32.4 32.3 RDW 16.8 17.7 H Plt Count 136 L 127 L MPV 9.0 8.8 Prelim Diff (Auto) Slide review pending Slide review pending Neut % (Auto) 23.6 26.7 Lymph % (Auto) 70.0 H 67.5 H Mccormick % (Auto) 3.5 3.1 Eos % (Auto) 2.6 2.4 Baso % (Auto) 0.3 0.3 Neut # (Auto) 10.0 H 13.2 H Lymph # (Auto) 29.7 H 33.4 H Mccormick # (Auto) 1.5 H 1.5 H Eos # (Auto) 1.1 H 1.2 H Baso # (Auto) 0.1 0.1 WBC Differential Manual diff final Manual diff final Seg Neuts % (Manual) 20 19 Band Neuts % (Manual) 5 Lymphocytes % (Manual) 69 H 71 H Monocytes % (Manual) 3 4 Eosinophils % (Manual) 3 5 H Basophils % (Manual) 1 Abs Neuts (Manual) 10.6 H 9.4 H Nucleated RBCs/100 WBC 1 H Differential Comment . . Smudge Cells Present H Present H Platelet Estimate Low L Low L Platelet Morphology Normal Normal Ovalocytes 1+ H 1+ H Raz Cells 1+ H Lab - Chemistry Results 07/06/18 07/07/18 07/07/18 16:52 00:13 04:24 Sodium 141 Potassium 4.6 Chloride 107 Carbon Dioxide 19.0 L Anion Gap 15 BUN 98 H Creatinine 5.67 H Estimated GFR 7 L POC Glucose 158 H 151 H Random Glucose 120 H Calcium 8.4 L Phosphorus 3.9 D Magnesium 2.0 Total Bilirubin 2.0 H AST 197 H ALT 49 Alkaline Phosphatase 136 H Total Protein 6.1 L D Albumin 4.5 D 07/07/18 07/07/18 07/07/18 05:35 16:11 16:50 Sodium 141 Potassium 4.9 Chloride 107 Carbon Dioxide 20.1 L Anion Gap 14 BUN 98 H Creatinine 5.75 H Estimated GFR 7 L POC Glucose 132 H 105 Random Glucose 103 Calcium 8.2 L Phosphorus Magnesium Total Bilirubin 2.6 H AST 159 H ALT 43 Alkaline Phosphatase 119 H Total Protein 6.2 L Albumin 4.4 07/08/18 07/08/18 07/08/18 00:18 06:33 10:27 Sodium 141 Potassium 4.5 Chloride 110 H Carbon Dioxide 17.9 L Anion Gap 13 BUN 94 H Creatinine 5.79 H Estimated GFR 7 L POC Glucose 113 H 123 H Random Glucose 135 H Calcium 8.4 L Phosphorus 4.1 Magnesium 1.8 Total Bilirubin AST ALT Alkaline Phosphatase Total Protein Albumin 07/08/18 12:38 Sodium Potassium Chloride Carbon Dioxide Anion Gap BUN Creatinine Estimated GFR POC Glucose 110 Random Glucose Calcium Phosphorus Magnesium Total Bilirubin AST ALT Alkaline Phosphatase Total Protein Albumin Imaging: ITS Impressions Abdomen Ultrasound 06/25/18 00:00 CONCLUSION: 1. Moderate ascites 2. Hepatic cirrhosis Abdomen/Pelvis CT 06/25/18 00:00 CONCLUSION: 1. Suspected cirrhotic liver. 2. Mild to moderate amount of ascites. 3. Bilateral pleural effusions being mild on the right and minimal on the left. 4. Increased density at the inferior right middle lobe and right lower lobe likely related to consolidation or atelectasis. 5. Anasarca 6. Tiny nonobstructing left renal stone. Chest Ultrasound 06/25/18 00:00 CONCLUSION: 1. Large right pleural effusion without appreciable loculation. Thoracentesis Ultrasound 06/25/18 00:00 CONCLUSION: 1. Uncomplicated right thoracentesis. Head CT 06/25/18 06:47 CONCLUSION: 1. Stable evaluation of the head. 2. No evidence of acute infarct, hemorrhage, mass or edema. . Paracentesis Ultrasound 06/29/18 00:00 CONCLUSION: 1. Uncomplicated paracentesis. TIPS 07/01/18 00:00 CONCLUSION: 1. Uncomplicated fluoroscopic guided placement of TIPS shunts from the right hepatic vein to the right portal vein, as above. PLAN: Baseline ultrasound examination in 2 weeks with surveillance ultrasound at 3 months, 6 months and one year. Abdomen X-Ray 07/06/18 11:06 CONCLUSION: Dobbhoff tube tip is noted within the expected region of the distal stomach. Chest X-Ray 07/07/18 06:00 CONCLUSION: Persistent left lower lobe consolidation. New nonconsolidative infiltrates in the right perihilar region. Physical Exam: GENERAL: Sedated on the vent. On warming blanket SKIN: Cool and dry. No generalized rash. Color is sallow HEAD: Atraumatic. Normocephalic. No temporal wasting, or tenderness. EYES: [place] conjunctiva. No petechia or hemorrhage. Has scleral icterus. No injection or drainage. EARS, NOSE AND THROAT: Orally intubated NECK: Ecchymoses R side where they had venipunture for TIPS CARDIOVASCULAR: Regular rate and rhythm. No murmurs, rubs or gallops heard RESPIRATORY: Decreased breath sounds at bases. Cath R side with serous fluid ABDOMEN: Globular, soft, mildly distended, no reaction to palpation. Bowel sounds present and normoactive. EXTREMITIES: No clubbing, cyanosis. Has mild pedal edema. No calf tenderness. NEUROLOGICAL: Sedated PSYCHIATRIC: Unable to assess LINE: No evidence of infection Assessment and Plan - Plan Impression Leukocytosis, etiology? - ?reactive, up again - no obvious source of infection - CXR with infiltrates, sputum NF - UA ok - BC negative - pleural fluid negative - has new vascath, no other central line - C diff negative - ?part of her CLL, has lymphocyte predominance on manual diff Bilateral infiltrates - CHF likely, or ARDS Respiratory failure Eligio effusions and ascites, etiology? Known CLL, stage 0 Ascites, has liver cirrhosis on imaging - S/P TIPS Chest pain, ?etiology - ?related to TIPS Renal failure, creatinine rising Recommendation Follow CBC Follow new C/S Continue Levaquin and Flagyl for now To be started on HD today Palliative medicine following Monitor progress D/W RN I will be off Jul 09- Other ID MD covering in my absence
[2018-07-08] MEDS: Heparin 10,000 UNITS/10 ML Vial (for IV use) OTHER PRN (15:27)
--- NOTE | 2018-07-08 15:56 | P.DIET ---
Nutritional Evaluation Type of nutrition evaluation: initial Nutrition consult regarding: Tube Feeding Screening comments: 07/08 TF review Objective - Diagnosis RML PNA, hypoxic respiratory failure - Objective Body Mass Index: 37.7 % IBW: 204 (IBW = 85lb) Body Weight Used for Calculations: Actual (79kg) Energy Needs - Lower Range (kCal/kg): 22 Energy Needs - Upper Range (kCal/kg): 28 Lower Limit kCal/kg (kCals): 1,738 Upper Limit kCal/kg (kCals): 2,380 Lower Limit Protein Factor (Grams per Kg): 1.2 Upper Limit Protein Factor (Grams per Kg): 1.5 Lower Protein Needs (Protein): 95 Upper Protein Needs (Protein): 119 Dietitian Reviewed in Medical Record: Curent medications, Intake & Output, Labs , Medical history, Tube feeding Diet Order: NPO Objective Comments: PMH: chronic lymphoid leukemia, DM, fatty liver, gout, HTN, kidney disease, thyroid disease Meds: Synthroid, flagyl Labs: BUN 98, Cr 5.67, estGFR 7, POC glucose 157 158 132 Assessment Assessment: Pt currently intubated, sedated, and on mech vent. Pt was being dialyzed during RD visit. Pt receiving Nepro 1.8 @ 30mL/hr, w/ 45mL/hr as goal rate per MD. RD to recommend Nepro 1.8 @ 55mL x 22hrs (d/t Synthroid dosing) to provide 2178kcal , 98g of protein, and 880mL of free water to best meet pts assessed needs. Continue to monitor TF tolerance and renal labs. Labs reviewed, dietitian following. Recommendations: 1. RD to recommend Nepro 1.8 @ 55mL x 22hrs (d/t Synthroid dosing) to best meet pts assessed needs 2. Continue to monitor TF tolerance and renal labs 3. Dietitian following Dietitian to Monitor: Lab values, Renal labs, Intake & Output, Tube feeding tolerance, Weight change, Medical course
--- NOTE | 2018-07-08 16:51 | P.PNPL ---
Subjective Interval history: 72 YOWF with br asthma, DM, Rt lung infilt and Pl eff Breathing better no Abd pain no fever. On Vent PRVC AC, Fi02 40% Remains on vent Chest tube drained 700 cc [place] renal functions Opens eyes Physical Exam Vital signs: Vital Signs 07/07/18 17:00 07/07/18 17:01 07/07/18 17:36 Temperature Pulse Rate 45 L 45 L 42 L Respiratory Rate 18 18 22 Blood Pressure 124/58 L 101/53 L Pulse Oximetry 97 98 99 07/07/18 17:40 07/07/18 17:45 07/07/18 17:50 Temperature Pulse Rate 41 L 42 L 41 L Respiratory Rate 16 16 18 Blood Pressure 90/54 L 96/55 L 93/51 L Pulse Oximetry 98 99 100 07/07/18 17:56 07/07/18 18:00 07/07/18 18:05 Temperature Pulse Rate 41 L 42 L 45 L Respiratory Rate 9 L 15 13 Blood Pressure 88/52 L 88/52 L 96/51 L Pulse Oximetry 100 100 100 07/07/18 18:11 07/07/18 18:21 07/07/18 18:31 Temperature Pulse Rate 42 L 43 L 41 L Respiratory Rate 17 18 18 Blood Pressure 97/52 L 101/54 L 103/53 L Pulse Oximetry 100 97 99 07/07/18 19:00 07/07/18 19:31 07/07/18 19:55 Temperature Pulse Rate 42 L 43 L 42 L Respiratory Rate 18 18 18 Blood Pressure 106/55 L 116/56 L Pulse Oximetry 98 96 97 07/07/18 20:00 07/07/18 20:01 07/07/18 20:30 Temperature 98.7 F Pulse Rate 41 L 42 L 42 L Respiratory Rate 15 19 18 Blood Pressure 107/56 L 109/56 L Pulse Oximetry 97 96 95 07/07/18 21:00 07/07/18 21:01 07/07/18 21:31 Temperature Pulse Rate 41 L 46 L 41 L Respiratory Rate 18 18 19 Blood Pressure 123/65 127/58 L Pulse Oximetry 98 99 99 07/07/18 22:00 07/07/18 22:01 07/07/18 22:30 Temperature Pulse Rate 41 L 41 L 41 L Respiratory Rate 18 19 15 Blood Pressure 98/52 L 100/53 L Pulse Oximetry 100 100 100 07/07/18 23:00 07/07/18 23:05 07/07/18 23:30 Temperature Pulse Rate 41 L 42 L 46 L Respiratory Rate 14 18 19 Blood Pressure 103/57 L 100/60 Pulse Oximetry 100 93 L 07/08/18 00:00 07/08/18 00:03 07/08/18 00:31 Temperature 97.6 F Pulse Rate 44 L 43 L 43 L Respiratory Rate 11 L 11 L 19 Blood Pressure 125/58 L 112/52 L Pulse Oximetry 95 96 98 07/08/18 01:00 07/08/18 01:01 07/08/18 01:18 Temperature Pulse Rate 42 L 42 L Respiratory Rate 18 17 18 Blood Pressure 107/54 L Pulse Oximetry 99 99 99 07/08/18 01:31 07/08/18 02:00 07/08/18 02:31 Temperature Pulse Rate 43 L 43 L 41 L Respiratory Rate 16 17 20 Blood Pressure 113/56 L 121/60 104/51 L Pulse Oximetry 96 95 100 07/08/18 03:00 07/08/18 03:37 07/08/18 03:51 Temperature Pulse Rate 41 L 41 L 41 L Respiratory Rate 19 16 18 Blood Pressure 100/52 L 116/56 L Pulse Oximetry 100 98 99 07/08/18 04:00 07/08/18 04:01 07/08/18 04:30 Temperature Pulse Rate 42 L 42 L 42 L Respiratory Rate 18 18 16 Blood Pressure 106/54 L 106/54 L 118/57 L Pulse Oximetry 97 97 96 07/08/18 05:04 07/08/18 05:31 07/08/18 06:10 Temperature Pulse Rate 42 L 43 L Respiratory Rate 18 18 Blood Pressure 95/51 L Pulse Oximetry 95 95 07/08/18 06:31 07/08/18 07:00 07/08/18 07:01 Temperature Pulse Rate 48 L 41 L 42 L Respiratory Rate 20 18 17 Blood Pressure 126/59 L 100/52 L Pulse Oximetry 95 99 99 07/08/18 07:30 07/08/18 07:59 07/08/18 08:00 Temperature 94.8 F L Pulse Rate 41 L 42 L Respiratory Rate 20 18 22 Blood Pressure 97/53 L 102/54 L Pulse Oximetry 100 99 100 07/08/18 08:02 07/08/18 08:31 07/08/18 09:00 Temperature Pulse Rate 42 L 43 L 42 L Respiratory Rate 18 14 17 Blood Pressure 117/56 L Pulse Oximetry 95 96 07/08/18 09:01 07/08/18 09:30 07/08/18 10:00 Temperature Pulse Rate 42 L 43 L 43 L Respiratory Rate 18 18 18 Blood Pressure 95/55 L 103/51 L 106/58 L Pulse Oximetry 96 95 96 07/08/18 10:33 07/08/18 11:00 07/08/18 11:01 Temperature Pulse Rate 43 L 42 L 42 L Respiratory Rate 18 15 18 Blood Pressure 106/53 L 98/51 L Pulse Oximetry 97 99 99 07/08/18 11:31 07/08/18 11:51 07/08/18 12:00 Temperature 94.5 F L Pulse Rate 42 L 45 L Respiratory Rate 19 18 19 Blood Pressure 138/59 L Pulse Oximetry 98 96 96 07/08/18 12:01 07/08/18 12:31 07/08/18 13:00 Temperature Pulse Rate 45 L 45 L 42 L Respiratory Rate 18 15 20 Blood Pressure 117/55 L 95/50 L 98/55 L Pulse Oximetry 95 97 96 07/08/18 13:30 07/08/18 13:45 07/08/18 14:00 Temperature Pulse Rate 45 L 44 L 43 L Respiratory Rate 11 L 14 13 Blood Pressure 96/51 L 92/53 L 86/49 L Pulse Oximetry 93 L 95 95 07/08/18 14:15 07/08/18 14:30 07/08/18 14:45 Temperature Pulse Rate 44 L 45 L 47 L Respiratory Rate 14 15 13 Blood Pressure 84/51 L 83/51 L 86/53 L Pulse Oximetry 93 L 93 L 94 L 07/08/18 15:00 07/08/18 15:15 07/08/18 15:30 Temperature Pulse Rate 45 L 57 L 54 L Respiratory Rate 14 15 18 Blood Pressure 88/55 L 95/53 L 92/50 L Pulse Oximetry 93 L 95 95 07/08/18 16:00 07/08/18 16:02 Temperature 98.2 F Pulse Rate 60 60 Respiratory Rate 19 18 Blood Pressure 112/56 L Pulse Oximetry 95 Intake & Output 07/07/18 07/08/18 07/08/18 18:59 06:59 18:59 Intake Total 1350 / 1350 1318 / 1318 1200 / 1200 Output Total 950 / 950 300 / 300 1999 / 1999 Balance 400 / 400 1018 / 1018 -800 / -800 Weight 79 kg Intake: IV 1350 / 1350 1100 / 1100 1200 / 1200 NS Inj 1,000 ML @ 84 mls/hr IV. 1000 / 1000 1000 / 1000 1000 / 1000 CONT .[id number] [facility] Rx#:[id number] Flexbumin 25% Inj 100 ML @ 60 100 / 100 100 / 100 200 / 200 mls/hr IV.SIG Q8H [facility] Rx#: [id number] fentaNYL 10 mcg/mL Premix Drip 250 / 250 2,500 mcg In 250 ml @ 50 MCG/HR 5 mls/hr IV.SIG TITRATE PRN Rx #:[id number] Oral 0 / 0 0 / 0 Tube Feeding 218 / 218 Output: Hemodialysis Amount 1999 / 1999 Urine Amount (Catheter) 550 / 550 Straight 550 / 550 Chest Tube Drainage 400 / 400 300 / 300 #1 Right Mid-Axillary Chest 400 / 400 300 / 300 Other: Date of Last Bowel Movement 07/05/18 07/05/18 # Bowel Movements 0 0 GENERAL: Elderly WF, on vent, sedated SKIN: Warm and dry. HEAD: Normocephalic. EYES: No scleral icterus. No injection or drainage. NECK: Supple, trachea midline. No JVD or lymphadenopathy. CARDIOVASCULAR: Regular rate and rhythm without murmurs, gallops, or rubs. RESPIRATORY: Breath sounds equal bilaterally. No accessory muscle use. GASTROINTESTINAL: Abdomen soft, non-tender, nondistended. MUSCULOSKELETAL: No cyanosis, or edema. BACK: Nontender without obvious deformity. No CVA tenderness. - Urinary Catheter Management Straight Cath placed during this visit: yes, but has since been removed by the nurse Reason for continuing: Not indwelling catheter Insertion date: 07/07/18 Insertion time: 18:00 Removal date: 07/07/18 Removal time: 18:20 Assessment and Plan - Plan IMPRESSION: 1. Right lung infiltrate. 2. Right pleural effusion. 3. Dyspnea. 4. Diabetes mellitus. 5. Hypertension. 6. Renal insufficiency and chronic kidney disease. 7. CLL 8. S/P TIPS 9. Severe leucocytosis 10. Worsening renal functions, ? hepatorenal synd 11. VDRF PLAN: Vent support, PRVC AC 18, Fi02 40%, Sedation with Fentanyl Cont Abx per ID Aerosol nebs Heparin 5000 IU SQ q 12 hrs Supplement 02 to keep sat >90% Chest tube to suction Plans for HD
--- NOTE | 2018-07-08 17:34 | P.PNPAL ---
Reason for Visit Reason for visit: a. To assist with evaluation and management of symptoms including: Shortness of breath, pain, debility b. To assist medical decision maker(s) with: better understanding of current medical conditions; weighing benefits/burdens of medical treatment options; making medical treatment decisions. Subjective Subjective/Interval History: Follow-up medically necessary for symptom management and family support. Patient seen and examined in her MICU room. She remains intubated, mildly sedated and on mechanical ventilation. FiO2 remains at 40% with O2 saturation in the high 90s. Patient currently has a bear hugger on, bedside nurse reports that patient was hypothermic with a low temperature of 94 F. Hemodialysis catheter to left IJ placed on by critical care physician. Laboratory workup today 07/08/18 revealing sodium 141, potassium 4.5, BUN/ creatinine 94/5.79, random glucose 135, calcium 8.4, phosphorus 4.1, and magnesium 1.8. Hemodialysis started today, with removal of 2 L per bedside RN. Persistent leukocytosis. Urinalysis on 07/07/18 positive for trace leukocyte Esterase, culture pending. Patient is febrile. Tube feeding infusing Via Dobbhoff catheter. Pulmonology, infectious disease following. Case discussed with bedside RN Sangita. . Advance Directives Living Will: Never completed Health Care Surrogate: Copy in medical record Durable Power of Sales Relationship Manager: Never completed Advance Directives Date on File: 06/29/18 Health Care Surrogate Name and Number: HCS: Clarence Sylvester [phone] Alt: Bharat Willard Documented care wishes:: Never completed living will. . Objective Vital Signs: Vital Signs 07/07/18 17:36 07/07/18 17:40 07/07/18 17:45 Temperature Pulse Rate 42 L 41 L 42 L Respiratory Rate 22 16 16 Blood Pressure 101/53 L 90/54 L 96/55 L Pulse Oximetry 99 98 99 07/07/18 17:50 07/07/18 17:56 07/07/18 18:00 Temperature Pulse Rate 41 L 41 L 42 L Respiratory Rate 18 9 L 15 Blood Pressure 93/51 L 88/52 L 88/52 L Pulse Oximetry 100 100 100 07/07/18 18:05 07/07/18 18:11 07/07/18 18:21 Temperature Pulse Rate 45 L 42 L 43 L Respiratory Rate 13 17 18 Blood Pressure 96/51 L 97/52 L 101/54 L Pulse Oximetry 100 100 97 07/07/18 18:31 07/07/18 19:00 07/07/18 19:31 Temperature Pulse Rate 41 L 42 L 43 L Respiratory Rate 18 18 18 Blood Pressure 103/53 L 106/55 L 116/56 L Pulse Oximetry 99 98 96 07/07/18 19:55 07/07/18 20:00 07/07/18 20:01 Temperature 98.7 F Pulse Rate 42 L 41 L 42 L Respiratory Rate 18 15 19 Blood Pressure 107/56 L Pulse Oximetry 97 97 96 07/07/18 20:30 07/07/18 21:00 07/07/18 21:01 Temperature Pulse Rate 42 L 41 L 46 L Respiratory Rate 18 18 18 Blood Pressure 109/56 L 123/65 Pulse Oximetry 95 98 99 07/07/18 21:31 07/07/18 22:00 07/07/18 22:01 Temperature Pulse Rate 41 L 41 L 41 L Respiratory Rate 19 18 19 Blood Pressure 127/58 L 98/52 L Pulse Oximetry 99 100 100 07/07/18 22:30 07/07/18 23:00 07/07/18 23:05 Temperature Pulse Rate 41 L 41 L 42 L Respiratory Rate 15 14 18 Blood Pressure 100/53 L 103/57 L Pulse Oximetry 100 100 07/07/18 23:30 07/08/18 00:00 07/08/18 00:03 Temperature 97.6 F Pulse Rate 46 L 44 L 43 L Respiratory Rate 19 11 L 11 L Blood Pressure 100/60 125/58 L Pulse Oximetry 93 L 95 96 07/08/18 00:31 07/08/18 01:00 07/08/18 01:01 Temperature Pulse Rate 43 L 42 L 42 L Respiratory Rate 19 18 17 Blood Pressure 112/52 L 107/54 L Pulse Oximetry 98 99 99 07/08/18 01:18 07/08/18 01:31 07/08/18 02:00 Temperature Pulse Rate 43 L 43 L Respiratory Rate 18 16 17 Blood Pressure 113/56 L 121/60 Pulse Oximetry 99 96 95 07/08/18 02:31 07/08/18 03:00 07/08/18 03:37 Temperature Pulse Rate 41 L 41 L 41 L Respiratory Rate 20 19 16 Blood Pressure 104/51 L 100/52 L 116/56 L Pulse Oximetry 100 100 98 07/08/18 03:51 07/08/18 04:00 07/08/18 04:01 Temperature Pulse Rate 41 L 42 L 42 L Respiratory Rate 18 18 18 Blood Pressure 106/54 L 106/54 L Pulse Oximetry 99 97 97 07/08/18 04:30 07/08/18 05:04 07/08/18 05:31 Temperature Pulse Rate 42 L 42 L Respiratory Rate 16 18 Blood Pressure 118/57 L 95/51 L Pulse Oximetry 96 95 07/08/18 06:10 07/08/18 06:31 07/08/18 07:00 Temperature Pulse Rate 43 L 48 L 41 L Respiratory Rate 18 20 18 Blood Pressure 126/59 L Pulse Oximetry 95 95 99 07/08/18 07:01 07/08/18 07:30 07/08/18 07:59 Temperature Pulse Rate 42 L 41 L Respiratory Rate 17 20 18 Blood Pressure 100/52 L 97/53 L Pulse Oximetry 99 100 99 07/08/18 08:00 07/08/18 08:02 07/08/18 08:31 Temperature 94.8 F L Pulse Rate 42 L 42 L 43 L Respiratory Rate 22 18 14 Blood Pressure 102/54 L 117/56 L Pulse Oximetry 100 95 07/08/18 09:00 07/08/18 09:01 07/08/18 09:30 Temperature Pulse Rate 42 L 42 L 43 L Respiratory Rate 17 18 18 Blood Pressure 95/55 L 103/51 L Pulse Oximetry 96 96 95 07/08/18 10:00 07/08/18 10:33 07/08/18 11:00 Temperature Pulse Rate 43 L 43 L 42 L Respiratory Rate 18 18 15 Blood Pressure 106/58 L 106/53 L Pulse Oximetry 96 97 99 07/08/18 11:01 07/08/18 11:31 07/08/18 11:51 Temperature Pulse Rate 42 L 42 L Respiratory Rate 18 19 18 Blood Pressure 98/51 L 138/59 L Pulse Oximetry 99 98 96 07/08/18 12:00 07/08/18 12:01 07/08/18 12:31 Temperature 94.5 F L Pulse Rate 45 L 45 L 45 L Respiratory Rate 19 18 15 Blood Pressure 117/55 L 95/50 L Pulse Oximetry 96 95 97 07/08/18 13:00 07/08/18 13:30 07/08/18 13:45 Temperature Pulse Rate 42 L 45 L 44 L Respiratory Rate 20 11 L 14 Blood Pressure 98/55 L 96/51 L 92/53 L Pulse Oximetry 96 93 L 95 07/08/18 14:00 07/08/18 14:15 07/08/18 14:30 Temperature Pulse Rate 43 L 44 L 45 L Respiratory Rate 13 14 15 Blood Pressure 86/49 L 84/51 L 83/51 L Pulse Oximetry 95 93 L 93 L 07/08/18 14:45 07/08/18 15:00 07/08/18 15:15 Temperature Pulse Rate 47 L 45 L 57 L Respiratory Rate 13 14 15 Blood Pressure 86/53 L 88/55 L 95/53 L Pulse Oximetry 94 L 93 L 95 07/08/18 15:30 07/08/18 16:00 07/08/18 16:02 Temperature 98.2 F Pulse Rate 54 L 60 60 Respiratory Rate 18 19 18 Blood Pressure 92/50 L 112/56 L Pulse Oximetry 95 95 Intake & Output 07/07/18 07/08/18 07/08/18 18:59 06:59 18:59 Intake Total 1350 / 1350 1318 / 1318 1200 / 1200 Output Total 950 / 950 300 / 300 1999 / 1999 Balance 400 / 400 1018 / 1018 -800 / -800 Weight 79 kg Intake: IV 1350 / 1350 1100 / 1100 1200 / 1200 NS Inj 1,000 ML @ 84 mls/hr IV. 1000 / 1000 1000 / 1000 1000 / 1000 CONT .[id number] [facility] Rx#:[id number] Flexbumin 25% Inj 100 ML @ 60 100 / 100 100 / 100 200 / 200 mls/hr IV.SIG Q8H [facility] Rx#: [id number] fentaNYL 10 mcg/mL Premix Drip 250 / 250 2,500 mcg In 250 ml @ 50 MCG/HR 5 mls/hr IV.SIG TITRATE PRN Rx #:[id number] Oral 0 / 0 0 / 0 Tube Feeding 218 / 218 Output: Hemodialysis Amount 1999 Urine Amount (Catheter) 550 / 550 Straight 550 / 550 Chest Tube Drainage 400 / 400 300 / 300 #1 Right Mid-Axillary Chest 400 / 400 300 / 300 Other: Date of Last Bowel Movement 07/05/18 07/05/18 # Bowel Movements 0 0 Physical Exam: CONSTITUTIONAL/GENERAL: This is a chronically ill looking elderly patient, intubated and sedated.. TUBES/LINES/DRAINS: PIV, ETT, Madsen catheter, Dobbhoff catheter SKIN: Pale. Slightly jaundiced. Ecchymoses on upper extremities. Surgical incision to right IJ with a dressing on. HEAD: Atraumatic. Normocephalic. EYES: Pupils equal and reactive to light. Fundi not examined. ENT: Nose without bleeding or purulent drainage. Edentulous. ETT NECK: Trachea midline. Supple, nontender. CARDIOVASCULAR: S1, S2 normal. No JVD. Peripheral pulses symmetric. RESPIRATORY/CHEST: Symmetric. Diminished breath sounds right pigtail chest tube to suction. No wheezes, rales, or rhonchi. GASTROINTESTINAL: Abdomen soft, non-tender, distended. No guarding. Hypoactive bowel sounds. GENITOURINARY: Without palpable bladder distension. MUSCULOSKELETAL: Extremities without clubbing, cyanosis, or edema. No mottling or clubbing. LYMPHATICS: Did not assess NEUROLOGICAL: Intubated, sedated. PSYCHIATRIC: Unable to assess Diagnostic Tests Laboratory: Laboratory Results - last 72 hr 07/05/18 07/05/18 07/06/18 20:27 22:58 03:55 WBC RBC Hgb Hct MCV MCH MCHC RDW Plt Count MPV Prelim Diff (Auto) Neut % (Auto) Lymph % (Auto) [place] % (Auto) Eos % (Auto) Baso % (Auto) Neut # (Auto) Lymph # (Auto) [place] # (Auto) Eos # (Auto) Baso # (Auto) WBC Differential Seg Neuts % (Manual) Band Neuts % (Manual) Lymphocytes % (Manual) Monocytes % (Manual) Eosinophils % (Manual) Basophils % (Manual) Abs Neuts (Manual) Nucleated RBCs/100 WBC Differential Comment Smudge Cells Platelet Estimate Platelet Morphology Ovalocytes [place] Cells PT INR APTT Fibrinogen Puncture Site Right radial Right radial Patient Temperature 98.6 98.6 O2 Saturation 93 90 ABG pH 7.28 L* 7.25 L* ABG pCO2 41 47 H ABG pO2 87 75 ABG HCO3 19 L 20 L ABG O2 Content 12.2 10.9 L ABG Base Excess -6.8 L -5.7 L ABG Methemoglobin 1.4 1.1 [place] Test Present Present Hemoglobin 9.2 L 8.5 L Carboxyhemoglobin 1.4 1.4 O2 Delivery Device Nrb Nrb Liter Flow 15.00 15.00 Vent Setting Inspired O2 100 100 Critical Value Yes Yes Sodium Potassium Chloride Carbon Dioxide Anion Gap BUN Creatinine Estimated GFR POC Glucose 176 H Random Glucose Lactic Acid Uric Acid Calcium Phosphorus Magnesium Total Bilirubin Direct Bilirubin Indirect Bilirubin AST ALT Alkaline Phosphatase Ammonia Total Creatine Kinase Troponin I Total Protein Albumin Amylase Lipase TSH Urine Color Urine Clarity Urine pH Ur Specific [place] Urine Protein Urine Glucose (UA) Urine Ketones Urine Occult Blood Urine Nitrate Urine Bilirubin Urine Urobilinogen Ur Leukocyte Esterase Urine RBC Urine WBC Ur Squamous Epith Cells Amorphous Sediment Urine Bacteria Hyaline Casts Micro UA Comment Ur Microscopic Review Urine Culture Comments Urine Eosinophils Ur Random Creatinine Ur Random Sodium Pleural pH Pleural RBC Pleural Nuc Cells Pleural Neutrophils Pleural Lymphocytes Pleural Monocytes Pleural Histocytes Pleural Mesothelial Pleural Total Protein Pleural LDH Pleural Glucose Pleural Amylase 07/06/18 07/06/18 07/06/18 04:24 04:24 04:24 WBC 42.7 H RBC 2.84 L Hgb 8.6 L Hct 26.6 L MCV 93.9 MCH 30.4 MCHC 32.3 RDW 16.7 Plt Count 158 D MPV 8.6 Prelim Diff (Auto) Slide review pending Neut % (Auto) 27.1 Lymph % (Auto) 69.5 H [place] % (Auto) 2.4 Eos % (Auto) 0.8 Baso % (Auto) 0.2 Neut # (Auto) 11.5 H Lymph # (Auto) 29.7 H [place] # (Auto) 1.0 H Eos # (Auto) 0.3 Baso # (Auto) 0.1 WBC Differential Manual diff final Seg Neuts % (Manual) 13 L Band Neuts % (Manual) 2 Lymphocytes % (Manual) 81 H Monocytes % (Manual) 1 Eosinophils % (Manual) 3 Basophils % (Manual) Abs Neuts (Manual) 6.4 Nucleated RBCs/100 WBC Differential Comment . Smudge Cells Present H Platelet Estimate Low L Platelet Morphology Normal Ovalocytes 1+ H [place] Cells PT 20.7 H INR 2.0 APTT 52.7 H Fibrinogen 114 L Puncture Site Patient Temperature O2 Saturation ABG pH ABG pCO2 ABG pO2 ABG HCO3 ABG O2 Content ABG Base Excess ABG Methemoglobin [place] Test Hemoglobin Carboxyhemoglobin O2 Delivery Device Liter Flow Vent Setting Inspired O2 Critical Value Sodium Potassium Chloride Carbon Dioxide Anion Gap BUN Creatinine Estimated GFR POC Glucose Random Glucose Lactic Acid 2.3 H Uric Acid Calcium Phosphorus Magnesium Total Bilirubin Direct Bilirubin Indirect Bilirubin AST ALT Alkaline Phosphatase Ammonia Total Creatine Kinase Troponin I Total Protein Albumin Amylase Lipase TSH Urine Color Urine Clarity Urine pH Ur Specific [place] Urine Protein Urine Glucose (UA) Urine Ketones Urine Occult Blood Urine Nitrate Urine Bilirubin Urine Urobilinogen Ur Leukocyte Esterase Urine RBC Urine WBC Ur Squamous Epith Cells Amorphous Sediment Urine Bacteria Hyaline Casts Micro UA Comment Ur Microscopic Review Urine Culture Comments Urine Eosinophils Ur Random Creatinine Ur Random Sodium Pleural pH Pleural RBC Pleural Nuc Cells Pleural Neutrophils Pleural Lymphocytes Pleural Monocytes Pleural Histocytes Pleural Mesothelial Pleural Total Protein Pleural LDH Pleural Glucose Pleural Amylase 07/06/18 07/06/18 07/06/18 04:24 04:24 05:08 WBC RBC Hgb Hct MCV MCH MCHC RDW Plt Count MPV Prelim Diff (Auto) Neut % (Auto) Lymph % (Auto) [place] % (Auto) Eos % (Auto) Baso % (Auto) Neut # (Auto) Lymph # (Auto) [place] # (Auto) Eos # (Auto) Baso # (Auto) WBC Differential Seg Neuts % (Manual) Band Neuts % (Manual) Lymphocytes % (Manual) Monocytes % (Manual) Eosinophils % (Manual) Basophils % (Manual) Abs Neuts (Manual) Nucleated RBCs/100 WBC Differential Comment Smudge Cells Platelet Estimate Platelet Morphology Ovalocytes Raz Cells PT INR APTT Fibrinogen Puncture Site Right radial Patient Temperature 98.6 O2 Saturation 96 ABG pH 7.33 L ABG pCO2 36 L ABG pO2 119 ABG HCO3 18 L ABG O2 Content 11.6 L ABG Base Excess -6.4 L ABG Methemoglobin 1.5 [place] Test Present Hemoglobin 8.5 L Carboxyhemoglobin 1.3 O2 Delivery Device Ventilator Liter Flow Vent Setting Prvc 18/530/1.10/8 Inspired O2 80 Critical Value No Sodium 140 Potassium 5.1 Chloride 105 Carbon Dioxide 22.0 Anion Gap 13 BUN 91 H Creatinine 5.63 H Estimated GFR 7 L POC Glucose Random Glucose 157 H Lactic Acid Uric Acid 11.7 H Calcium 8.9 Phosphorus 5.5 H Magnesium 2.1 Total Bilirubin 2.1 H Direct Bilirubin 1.1 H Indirect Bilirubin 1.0 H AST 267 H ALT 63 H Alkaline Phosphatase 158 H Ammonia Less than 10 L Total Creatine Kinase 68 Troponin I 0.06 H Total Protein 6.7 D Albumin 5.1 H Amylase 254 H Lipase 1209 H TSH 15.800 H Urine Color Urine Clarity Urine pH Ur Specific [place] Urine Protein Urine Glucose (UA) Urine Ketones Urine Occult Blood Urine Nitrate Urine Bilirubin Urine Urobilinogen Ur Leukocyte Esterase Urine RBC Urine WBC Ur Squamous Epith Cells Amorphous Sediment Urine Bacteria Hyaline Casts Micro UA Comment Ur Microscopic Review Urine Culture Comments Urine Eosinophils Ur Random Creatinine Ur Random Sodium Pleural pH Pleural RBC Pleural Nuc Cells Pleural Neutrophils Pleural Lymphocytes Pleural Monocytes Pleural Histocytes Pleural Mesothelial Pleural Total Protein Pleural LDH Pleural Glucose Pleural Amylase 07/06/18 07/06/18 07/06/18 05:45 11:35 15:15 WBC RBC Hgb Hct MCV MCH MCHC RDW Plt Count MPV Prelim Diff (Auto) Neut % (Auto) Lymph % (Auto) [place] % (Auto) Eos % (Auto) Baso % (Auto) Neut # (Auto) Lymph # (Auto) [place] # (Auto) Eos # (Auto) Baso # (Auto) WBC Differential Seg Neuts % (Manual) Band Neuts % (Manual) Lymphocytes % (Manual) Monocytes % (Manual) Eosinophils % (Manual) Basophils % (Manual) Abs Neuts (Manual) Nucleated RBCs/100 WBC Differential Comment Smudge Cells Platelet Estimate Platelet Morphology Ovalocytes Raz Cells PT INR APTT Fibrinogen Puncture Site Patient Temperature O2 Saturation ABG pH ABG pCO2 ABG pO2 ABG HCO3 ABG O2 Content ABG Base Excess ABG Methemoglobin [place] Test Hemoglobin Carboxyhemoglobin O2 Delivery Device Liter Flow Vent Setting Inspired O2 Critical Value Sodium Potassium Chloride Carbon Dioxide Anion Gap BUN Creatinine Estimated GFR POC Glucose 172 H 157 H Random Glucose Lactic Acid Uric Acid Calcium Phosphorus Magnesium Total Bilirubin Direct Bilirubin Indirect Bilirubin AST ALT Alkaline Phosphatase Ammonia Total Creatine Kinase Troponin I Total Protein Albumin Amylase Lipase TSH Urine Color Urine Clarity Urine pH Ur Specific [place] Urine Protein Urine Glucose (UA) Urine Ketones Urine Occult Blood Urine Nitrate Urine Bilirubin Urine Urobilinogen Ur Leukocyte Esterase Urine RBC Urine WBC Ur Squamous Epith Cells Amorphous Sediment Urine Bacteria Hyaline Casts Micro UA Comment Ur Microscopic Review Urine Culture Comments Urine Eosinophils Ur Random Creatinine Ur Random Sodium Pleural pH Pleural RBC Pleural Nuc Cells Pleural Neutrophils Pleural Lymphocytes Pleural Monocytes Pleural Histocytes Pleural Mesothelial Pleural Total Protein Pleural LDH Cancelled Pleural Glucose Cancelled Pleural Amylase Cancelled 07/06/18 07/06/18 07/06/18 15:15 15:15 16:52 WBC RBC Hgb Hct MCV MCH MCHC RDW Plt Count MPV Prelim Diff (Auto) Neut % (Auto) Lymph % (Auto) [place] % (Auto) Eos % (Auto) Baso % (Auto) Neut # (Auto) Lymph # (Auto) [place] # (Auto) Eos # (Auto) Baso # (Auto) WBC Differential Seg Neuts % (Manual) Band Neuts % (Manual) Lymphocytes % (Manual) Monocytes % (Manual) Eosinophils % (Manual) Basophils % (Manual) Abs Neuts (Manual) Nucleated RBCs/100 WBC Differential Comment Smudge Cells Platelet Estimate Platelet Morphology Ovalocytes Raz Cells PT INR APTT Fibrinogen Puncture Site Patient Temperature O2 Saturation ABG pH ABG pCO2 ABG pO2 ABG HCO3 ABG O2 Content ABG Base Excess ABG Methemoglobin [place] Test Hemoglobin Carboxyhemoglobin O2 Delivery Device Liter Flow Vent Setting Inspired O2 Critical Value Sodium Potassium Chloride Carbon Dioxide Anion Gap BUN Creatinine Estimated GFR POC Glucose 158 H Random Glucose Lactic Acid Uric Acid Calcium Phosphorus Magnesium Total Bilirubin Direct Bilirubin Indirect Bilirubin AST ALT Alkaline Phosphatase Ammonia Total Creatine Kinase Troponin I Total Protein Albumin Amylase Lipase TSH Urine Color Urine Clarity Urine pH Ur Specific [place] Urine Protein Urine Glucose (UA) Urine Ketones Urine Occult Blood Urine Nitrate Urine Bilirubin Urine Urobilinogen Ur Leukocyte Esterase Urine RBC Urine WBC Ur Squamous Epith Cells Amorphous Sediment Urine Bacteria Hyaline Casts Micro UA Comment Ur Microscopic Review Urine Culture Comments Urine Eosinophils Ur Random Creatinine Ur Random Sodium Pleural pH 8.5 Pleural RBC 88298 H Pleural Nuc Cells 443 H Pleural Neutrophils 6 Pleural Lymphocytes 46 Pleural Monocytes 7 Pleural Histocytes 17 Pleural Mesothelial 24 Pleural Total Protein 3.0 Pleural LDH 140 Pleural Glucose 165 Pleural Amylase 64 07/07/18 07/07/18 07/07/18 00:13 04:24 04:24 WBC 42.5 H RBC 3.00 L Hgb 9.2 L Hct 28.3 L MCV 94.3 MCH 30.6 MCHC 32.4 RDW 16.8 Plt Count 136 L MPV 9.0 Prelim Diff (Auto) Slide review pending Neut % (Auto) 23.6 Lymph % (Auto) 70.0 H [place] % (Auto) 3.5 Eos % (Auto) 2.6 Baso % (Auto) 0.3 Neut # (Auto) 10.0 H Lymph # (Auto) 29.7 H [place] # (Auto) 1.5 H Eos # (Auto) 1.1 H Baso # (Auto) 0.1 WBC Differential Manual diff final Seg Neuts % (Manual) 20 Band Neuts % (Manual) 5 Lymphocytes % (Manual) 69 H Monocytes % (Manual) 3 Eosinophils % (Manual) 3 Basophils % (Manual) Abs Neuts (Manual) 10.6 H Nucleated RBCs/100 WBC 1 H Differential Comment . Smudge Cells Present H Platelet Estimate Low L Platelet Morphology Normal Ovalocytes 1+ H Raz Cells PT INR APTT Fibrinogen Puncture Site Patient Temperature O2 Saturation ABG pH ABG pCO2 ABG pO2 ABG HCO3 ABG O2 Content ABG Base Excess ABG Methemoglobin [place] Test Hemoglobin Carboxyhemoglobin O2 Delivery Device Liter Flow Vent Setting Inspired O2 Critical Value Sodium 141 Potassium 4.6 Chloride 107 Carbon Dioxide 19.0 L Anion Gap 15 BUN 98 H Creatinine 5.67 H Estimated GFR 7 L POC Glucose 151 H Random Glucose 120 H Lactic Acid Uric Acid Calcium 8.4 L Phosphorus 3.9 D Magnesium 2.0 Total Bilirubin 2.0 H Direct Bilirubin Indirect Bilirubin AST 197 H ALT 49 Alkaline Phosphatase 136 H Ammonia Total Creatine Kinase Troponin I Total Protein 6.1 L D Albumin 4.5 D Amylase Lipase TSH Urine Color Urine Clarity Urine pH Ur Specific [place] Urine Protein Urine Glucose (UA) Urine Ketones Urine Occult Blood Urine Nitrate Urine Bilirubin Urine Urobilinogen Ur Leukocyte Esterase Urine RBC Urine WBC Ur Squamous Epith Cells Amorphous Sediment Urine Bacteria Hyaline Casts Micro UA Comment Ur Microscopic Review Urine Culture Comments Urine Eosinophils Ur Random Creatinine Ur Random Sodium Pleural pH Pleural RBC Pleural Nuc Cells Pleural Neutrophils Pleural Lymphocytes Pleural Monocytes Pleural Histocytes Pleural Mesothelial Pleural Total Protein Pleural LDH Pleural Glucose Pleural Amylase 07/07/18 07/07/18 07/07/18 05:35 16:11 16:50 WBC RBC Hgb Hct MCV MCH MCHC RDW Plt Count MPV Prelim Diff (Auto) Neut % (Auto) Lymph % (Auto) [place] % (Auto) Eos % (Auto) Baso % (Auto) Neut # (Auto) Lymph # (Auto) [place] # (Auto) Eos # (Auto) Baso # (Auto) WBC Differential Seg Neuts % (Manual) Band Neuts % (Manual) Lymphocytes % (Manual) Monocytes % (Manual) Eosinophils % (Manual) Basophils % (Manual) Abs Neuts (Manual) Nucleated RBCs/100 WBC Differential Comment Smudge Cells Platelet Estimate Platelet Morphology Ovalocytes [place] Cells PT INR APTT Fibrinogen Puncture Site Patient Temperature O2 Saturation ABG pH ABG pCO2 ABG pO2 ABG HCO3 ABG O2 Content ABG Base Excess ABG Methemoglobin [place] Test Hemoglobin Carboxyhemoglobin O2 Delivery Device Liter Flow Vent Setting Inspired O2 Critical Value Sodium 141 Potassium 4.9 Chloride 107 Carbon Dioxide 20.1 L Anion Gap 14 BUN 98 H Creatinine 5.75 H Estimated GFR 7 L POC Glucose 132 H 105 Random Glucose 103 Lactic Acid Uric Acid Calcium 8.2 L Phosphorus Magnesium Total Bilirubin 2.6 H Direct Bilirubin Indirect Bilirubin AST 159 H ALT 43 Alkaline Phosphatase 119 H Ammonia Total Creatine Kinase Troponin I Total Protein 6.2 L Albumin 4.4 Amylase Lipase TSH Urine Color Urine Clarity Urine pH Ur Specific [place] Urine Protein Urine Glucose (UA) Urine Ketones Urine Occult Blood Urine Nitrate Urine Bilirubin Urine Urobilinogen Ur Leukocyte Esterase Urine RBC Urine WBC Ur Squamous Epith Cells Amorphous Sediment Urine Bacteria Hyaline Casts Micro UA Comment Ur Microscopic Review Urine Culture Comments Urine Eosinophils Ur Random Creatinine Ur Random Sodium Pleural pH Pleural RBC Pleural Nuc Cells Pleural Neutrophils Pleural Lymphocytes Pleural Monocytes Pleural Histocytes Pleural Mesothelial Pleural Total Protein Pleural LDH Pleural Glucose Pleural Amylase 07/07/18 07/07/18 07/07/18 18:30 18:30 18:30 WBC RBC Hgb Hct MCV MCH MCHC RDW Plt Count MPV Prelim Diff (Auto) Neut % (Auto) Lymph % (Auto) [place] % (Auto) Eos % (Auto) Baso % (Auto) Neut # (Auto) Lymph # (Auto) [place] # (Auto) Eos # (Auto) Baso # (Auto) WBC Differential Seg Neuts % (Manual) Band Neuts % (Manual) Lymphocytes % (Manual) Monocytes % (Manual) Eosinophils % (Manual) Basophils % (Manual) Abs Neuts (Manual) Nucleated RBCs/100 WBC Differential Comment Smudge Cells Platelet Estimate Platelet Morphology Ovalocytes Raz Cells PT INR APTT Fibrinogen Puncture Site Patient Temperature O2 Saturation ABG pH ABG pCO2 ABG pO2 ABG HCO3 ABG O2 Content ABG Base Excess ABG Methemoglobin [place] Test Hemoglobin Carboxyhemoglobin O2 Delivery Device Liter Flow Vent Setting Inspired O2 Critical Value Sodium Potassium Chloride Carbon Dioxide Anion Gap BUN Creatinine Estimated GFR POC Glucose Random Glucose Lactic Acid Uric Acid Calcium Phosphorus Magnesium Total Bilirubin Direct Bilirubin Indirect Bilirubin AST ALT Alkaline Phosphatase Ammonia Total Creatine Kinase Troponin I Total Protein Albumin Amylase Lipase TSH Urine Color [place] Urine Clarity Hazy H Urine pH 5.0 Ur Specific [place] 1.017 Urine Protein 100 H Urine Glucose (UA) Negative Urine Ketones Negative Urine Occult Blood Small H Urine Nitrate Negative Urine Bilirubin Negative Urine Urobilinogen Less than 2 Ur Leukocyte Esterase Trace H Urine RBC 1 Urine WBC 2 Ur Squamous Epith Cells <1 Amorphous Sediment Rare H Urine Bacteria Few H Hyaline Casts 1 Micro UA Comment Cath-culture ind Ur Microscopic Review Not Reportable Urine Culture Comments Cath-cult indicated Urine Eosinophils None seen Ur Random Creatinine 105 Ur Random Sodium 27 Pleural pH Pleural RBC Pleural Nuc Cells Pleural Neutrophils Pleural Lymphocytes Pleural Monocytes Pleural Histocytes Pleural Mesothelial Pleural Total Protein Pleural LDH Pleural Glucose Pleural Amylase 07/08/18 07/08/18 07/08/18 00:18 06:33 10:27 WBC 49.4 H RBC 3.09 L Hgb 9.6 L Hct 29.7 L MCV 96.2 MCH 31.0 MCHC 32.3 RDW 17.7 H Plt Count 127 L MPV 8.8 Prelim Diff (Auto) Slide review pending Neut % (Auto) 26.7 Lymph % (Auto) 67.5 H [place] % (Auto) 3.1 Eos % (Auto) 2.4 Baso % (Auto) 0.3 Neut # (Auto) 13.2 H Lymph # (Auto) 33.4 H [place] # (Auto) 1.5 H Eos # (Auto) 1.2 H Baso # (Auto) 0.1 WBC Differential Manual diff final Seg Neuts % (Manual) 19 Band Neuts % (Manual) Lymphocytes % (Manual) 71 H Monocytes % (Manual) 4 Eosinophils % (Manual) 5 H Basophils % (Manual) 1 Abs Neuts (Manual) 9.4 H Nucleated RBCs/100 WBC Differential Comment . Smudge Cells Present H Platelet Estimate Low L Platelet Morphology Normal Ovalocytes 1+ H Raz Cells 1+ H PT INR APTT Fibrinogen Puncture Site Patient Temperature O2 Saturation ABG pH ABG pCO2 ABG pO2 ABG HCO3 ABG O2 Content ABG Base Excess ABG Methemoglobin Ulysses Test Hemoglobin Carboxyhemoglobin O2 Delivery Device Liter Flow Vent Setting Inspired O2 Critical Value Sodium Potassium Chloride Carbon Dioxide Anion Gap BUN Creatinine Estimated GFR POC Glucose 113 H 123 H Random Glucose Lactic Acid Uric Acid Calcium Phosphorus Magnesium Total Bilirubin Direct Bilirubin Indirect Bilirubin AST ALT Alkaline Phosphatase Ammonia Total Creatine Kinase Troponin I Total Protein Albumin Amylase Lipase TSH Urine Color Urine Clarity Urine pH Ur Specific [place] Urine Protein Urine Glucose (UA) Urine Ketones Urine Occult Blood Urine Nitrate Urine Bilirubin Urine Urobilinogen Ur Leukocyte Esterase Urine RBC Urine WBC Ur Squamous Epith Cells Amorphous Sediment Urine Bacteria Hyaline Casts Micro UA Comment Ur Microscopic Review Urine Culture Comments Urine Eosinophils Ur Random Creatinine Ur Random Sodium Pleural pH Pleural RBC Pleural Nuc Cells Pleural Neutrophils Pleural Lymphocytes Pleural Monocytes Pleural Histocytes Pleural Mesothelial Pleural Total Protein Pleural LDH Pleural Glucose Pleural Amylase 07/08/18 07/08/18 10:27 12:38 WBC RBC Hgb Hct MCV MCH MCHC RDW Plt Count MPV Prelim Diff (Auto) Neut % (Auto) Lymph % (Auto) [place] % (Auto) Eos % (Auto) Baso % (Auto) Neut # (Auto) Lymph # (Auto) [place] # (Auto) Eos # (Auto) Baso # (Auto) WBC Differential Seg Neuts % (Manual) Band Neuts % (Manual) Lymphocytes % (Manual) Monocytes % (Manual) Eosinophils % (Manual) Basophils % (Manual) Abs Neuts (Manual) Nucleated RBCs/100 WBC Differential Comment Smudge Cells Platelet Estimate Platelet Morphology Ovalocytes Raz Cells PT INR APTT Fibrinogen Puncture Site Patient Temperature O2 Saturation ABG pH ABG pCO2 ABG pO2 ABG HCO3 ABG O2 Content ABG Base Excess ABG Methemoglobin [place] Test Hemoglobin Carboxyhemoglobin O2 Delivery Device Liter Flow Vent Setting Inspired O2 Critical Value Sodium 141 Potassium 4.5 Chloride 110 H Carbon Dioxide 17.9 L Anion Gap 13 BUN 94 H Creatinine 5.79 H Estimated GFR 7 L POC Glucose 110 Random Glucose 135 H Lactic Acid Uric Acid Calcium 8.4 L Phosphorus 4.1 Magnesium 1.8 Total Bilirubin Direct Bilirubin Indirect Bilirubin AST ALT Alkaline Phosphatase Ammonia Total Creatine Kinase Troponin I Total Protein Albumin Amylase Lipase TSH Urine Color Urine Clarity Urine pH Ur Specific [place] Urine Protein Urine Glucose (UA) Urine Ketones Urine Occult Blood Urine Nitrate Urine Bilirubin Urine Urobilinogen Ur Leukocyte Esterase Urine RBC Urine WBC Ur Squamous Epith Cells Amorphous Sediment Urine Bacteria Hyaline Casts Micro UA Comment Ur Microscopic Review Urine Culture Comments Urine Eosinophils Ur Random Creatinine Ur Random Sodium Pleural pH Pleural RBC Pleural Nuc Cells Pleural Neutrophils Pleural Lymphocytes Pleural Monocytes Pleural Histocytes Pleural Mesothelial Pleural Total Protein Pleural LDH Pleural Glucose Pleural Amylase Result Diagrams: 07/13/18 09:02 07/13/18 09:02 Microbiology: Microbiology 07/07/18 18:30 Urine Culture - Preliminary Catheterized Urine No growth. 07/06/18 15:15 Acid Fast Bacilli Smear - Final Fluid - Pleural fluid No acid fast bacilli seen 07/06/18 05:15 Aerobic Blood Culture - Preliminary Blood - Peripheral No growth in 2 days Anaerobic Blood Culture - Preliminary No growth in 2 days 07/06/18 05:20 Aerobic Blood Culture - Preliminary Blood - Peripheral No growth in 2 days Anaerobic Blood Culture - Preliminary No growth in 2 days 07/06/18 15:15 Gram Stain - Final Fluid - Pleural fluid Body Fluid Culture - Preliminary No growth in 48 hours 07/06/18 11:50 Gram Stain - Final Sputum - Endotracheal Sputum Culture - Final Moderate growth normal respiratory yaneth 07/06/18 15:15 Fungal Smear - Final Fluid - Pleural fluid No fungal elements seen 07/06/18 08:10 Influenza Types A,B Antigen - Final Nasal Wash Negative for FLU A and B antigen Infection due to influenza A or B cannot be ruled out since the antigen present in the sample may be below the detection limit of the test. Imaging: Abdomen Ultrasound 06/25/18 00:00 CONCLUSION: 1. Moderate ascites 2. Hepatic cirrhosis Abdomen/Pelvis CT 06/25/18 00:00 CONCLUSION: 1. Suspected cirrhotic liver. 2. Mild to moderate amount of ascites. 3. Bilateral pleural effusions being mild on the right and minimal on the left. 4. Increased density at the inferior right middle lobe and right lower lobe likely related to consolidation or atelectasis. 5. Anasarca 6. Tiny nonobstructing left renal stone. Chest Ultrasound 06/25/18 00:00 CONCLUSION: 1. Large right pleural effusion without appreciable loculation. Thoracentesis Ultrasound 06/25/18 00:00 CONCLUSION: 1. Uncomplicated right thoracentesis. Head CT 06/25/18 06:47 CONCLUSION: 1. Stable evaluation of the head. 2. No evidence of acute infarct, hemorrhage, mass or edema. . Paracentesis Ultrasound 06/29/18 00:00 CONCLUSION: 1. Uncomplicated paracentesis. TIPS 07/01/18 00:00 CONCLUSION: 1. Uncomplicated fluoroscopic guided placement of TIPS shunts from the right hepatic vein to the right portal vein, as above. PLAN: Baseline ultrasound examination in 2 weeks with surveillance ultrasound at 3 months, 6 months and one year. Abdomen X-Ray 07/06/18 11:06 CONCLUSION: Dobbhoff tube tip is noted within the expected region of the distal stomach. Chest X-Ray 07/07/18 06:00 CONCLUSION: Persistent left lower lobe consolidation. New nonconsolidative infiltrates in the right perihilar region. Procedures: 06/25/18-Ultrasound guided paracentesis by interventional radiology with removal of 5700 mL's of clear, yellow fluid. 06/25/18 -Ultrasound-guided thoracentesis by interventional radiology with removal of 1200 mL's of clear, yellow fluid. 06/29/1870-[id number] paracentesis by interventional radiology with removal of 5900 mL's of clear, red fluid. 07/01/18-transjugular intrahepatic portosystemic shunt placement by interventional radiology 07/06/18-Endotracheally intubated 07/06/1857-[id number] right chest tube placement for large right pleural effusion 07/07/18-Hemodialysis catheter to left IJ 07/08/18-Hemodialysis started . Assessment and Plan - Disease Oriented Problem List (1) Sepsis (2) Diabetes (3) Pneumonia (4) Acute on chronic kidney failure (5) Abdominal distension - Symptom Scale (1) Shortness of breath Comment: This is most likely from ascites and pleural effusion. Patient has had ultrasound guided thoracentesis on 03/05 with removal of 1200 mL's of clear, yellow fluid and ultrasound guided paracentesis on 06/25/18 with removal of 5700 mL's of clear fluid. (2) Pain Comment: From bedbound status, intubation and other interventions. (3) Debility Comment: Progressive. Patient has multiple ongoing comorbidities. Pertinent Non-Medical Issues: Psychosocial: Patient is originally from [facility]. She moved to [place] in 1983. She has been to her current for 29 years. 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 Patient has never had children. Spiritual: Patient is Yazidism-open to quality assurance coach or director of placement to visit. Legal: Patient has completed designation of healthcare surrogate form today 07/05. Ethical issues impacting care: None identified at this time Important Contacts: Healthcare surrogate -spouse-Higinio Lima [phone] Alternate healthcare surrogate-Bharat Sudheer [phone] Family friend-Keon Salazartobias [phone] . Prognosis: Mrs. Phoenix is a 72-year-old female with a past medical history of chronic lymphoid leukemia, asthma, diabetes mellitus, fatty liver, gout, arthritis, kidney disease, and thyroid disease. Patient presented to the emergency room on 06/25/18 for evaluation of generalized weakness, abdominal distention, shortness of breath and a painful bump on her head which she sustained from a fall from her water bed a week prior to presenting to the emergency room. Diagnostic EGD has showed that patient has liver cirrhosis. Clinical course complicated by shortness of breath, worsening renal function, and recurrent ascites. Given multiple ongoing comorbidities, patient remains at high risk for further complications, deterioration and decline. . Code Status: Alternative Code Plan: PLAN: Legal decision maker: Patient is currently intubated, sedated and is not able to participate in decision-making. It is not known with the patient will ever regain capacity to make medical decisions for himself. Patient has designated her spouse Higinio Lima as her healthcare surrogate and her neighbor Sudheer Nicholson is her alternate healthcare surrogate in the past when she was able to make medical decisions. Goals: Goals remain aggressive as per last discussion with patient spouse Higinio Lima. Patient`s spouse who is grieving the loss of his only living relative-his brother who yesterday 07/06/18 and he mentioned that he is not ready to lose his . He would like everything possible that can be done including hemodialysis to try and save his . Anticipatory guidance provided per patient`s spouse request to discuss options available to patient and him if patient does not show any improvement after being started on hemodialysis. Discussed compassionate withdrawal from life support and introduced hospice philosophy and benefits. CODE STATUS: Alternate code-Intubation only SYMPTOMS: * Shortness of breath:This is most likely from ascites and pleural effusion. Patient has had ultrasound guided thoracentesis on 06/25/18 with removal of 1200 mL's of clear, yellow fluid and ultrasound guided paracentesis on 06/25/18 with removal of 5700 mL's of clear fluid. Patient had another therapeutic paracentesis with removal of 5900 mL's of clear red fluid. Intubated on 07/06/18 - due to confusion, tachypneic, desaturation and lethargy. Currently on FiO2 40 %. Right pigtail chest tube placed on 07/06/18. Pulmonology following. No recommendations at this time. * Pain: Patient can have pain from bedbound status, intubation and other interventions. She is currently on fentanyl infusion at 50 mcg/hr. medication appears adequate at this time. * Debility: Progressive. Patient has ongoing multiple comorbidities and has had multiple falls at home. Patient uses a wheeled walker at home. Physical therapy consulted, recommended PT at rehab. Palliative care will continue to follow the patient during hospital course as condition evolves, to assist patient/decision-maker with understanding of their medical conditions, weighing benefits/burdens of treatment options, for clarification of goals of treatment. Additionally will assist with any symptoms of palliative concern Attestation Attestation: To help prompt me to consider important information that might be impacting today's encounter and assessment, information from prior notes written by myself or my colleagues may have been "brought forward" into today's note. My signature on this note, however, is an attestation that I personally performed the exam, history, and/or decision-making noted today, and, unless otherwise indicated, the interactions with patient, family, and staff as well as the review of records all occurred today. I also attest that the listed assessment and stated plan reflect my best clinical judgment today based on the combination of historical information, prior notes, and today's exam/ interactions. When time spent is documented, it refers only to time spent today by the signer, or if indicated, combined time spent today by collaborating physician/nurse practitioner.
--- NOTE | 2018-07-08 18:04 | P.PNONC ---
Subjective Interval history: Resting comfortably in bed, intubated, sedated. Objective Vital Signs/Intake & Output: Vital Signs 07/07/18 18:00 07/07/18 18:05 07/07/18 18:11 Temperature Pulse Rate 42 L 45 L 42 L Respiratory Rate 15 13 17 Blood Pressure 88/52 L 96/51 L 97/52 L Pulse Oximetry 100 100 100 07/07/18 18:21 07/07/18 18:31 07/07/18 19:00 Temperature Pulse Rate 43 L 41 L 42 L Respiratory Rate 18 18 18 Blood Pressure 101/54 L 103/53 L 106/55 L Pulse Oximetry 97 99 98 07/07/18 19:31 07/07/18 19:55 07/07/18 20:00 Temperature 98.7 F Pulse Rate 43 L 42 L 41 L Respiratory Rate 18 18 15 Blood Pressure 116/56 L Pulse Oximetry 96 97 97 07/07/18 20:01 07/07/18 20:30 07/07/18 21:00 Temperature Pulse Rate 42 L 42 L 41 L Respiratory Rate 19 18 18 Blood Pressure 107/56 L 109/56 L Pulse Oximetry 96 95 98 07/07/18 21:01 07/07/18 21:31 07/07/18 22:00 Temperature Pulse Rate 46 L 41 L 41 L Respiratory Rate 18 19 18 Blood Pressure 123/65 127/58 L Pulse Oximetry 99 99 100 07/07/18 22:01 07/07/18 22:30 07/07/18 23:00 Temperature Pulse Rate 41 L 41 L 41 L Respiratory Rate 19 15 14 Blood Pressure 98/52 L 100/53 L 103/57 L Pulse Oximetry 100 100 100 07/07/18 23:05 07/07/18 23:30 07/08/18 00:00 Temperature 97.6 F Pulse Rate 42 L 46 L 44 L Respiratory Rate 18 19 11 L Blood Pressure 100/60 Pulse Oximetry 93 L 95 07/08/18 00:03 07/08/18 00:31 07/08/18 01:00 Temperature Pulse Rate 43 L 43 L 42 L Respiratory Rate 11 L 19 18 Blood Pressure 125/58 L 112/52 L Pulse Oximetry 96 98 99 07/08/18 01:01 07/08/18 01:18 07/08/18 01:31 Temperature Pulse Rate 42 L 43 L Respiratory Rate 17 18 16 Blood Pressure 107/54 L 113/56 L Pulse Oximetry 99 99 96 07/08/18 02:00 07/08/18 02:31 07/08/18 03:00 Temperature Pulse Rate 43 L 41 L 41 L Respiratory Rate 17 20 19 Blood Pressure 121/60 104/51 L 100/52 L Pulse Oximetry 95 100 100 07/08/18 03:37 07/08/18 03:51 07/08/18 04:00 Temperature Pulse Rate 41 L 41 L 42 L Respiratory Rate 16 18 18 Blood Pressure 116/56 L 106/54 L Pulse Oximetry 98 99 97 07/08/18 04:01 07/08/18 04:30 07/08/18 05:04 Temperature Pulse Rate 42 L 42 L 42 L Respiratory Rate 18 16 18 Blood Pressure 106/54 L 118/57 L Pulse Oximetry 97 96 95 07/08/18 05:31 07/08/18 06:10 07/08/18 06:31 Temperature Pulse Rate 43 L 48 L Respiratory Rate 18 20 Blood Pressure 95/51 L 126/59 L Pulse Oximetry 95 95 07/08/18 07:00 07/08/18 07:01 07/08/18 07:30 Temperature Pulse Rate 41 L 42 L 41 L Respiratory Rate 18 17 20 Blood Pressure 100/52 L 97/53 L Pulse Oximetry 99 99 100 07/08/18 07:59 07/08/18 08:00 07/08/18 08:02 Temperature 94.8 F L Pulse Rate 42 L 42 L Respiratory Rate 18 22 18 Blood Pressure 102/54 L Pulse Oximetry 99 100 07/08/18 08:31 07/08/18 09:00 07/08/18 09:01 Temperature Pulse Rate 43 L 42 L 42 L Respiratory Rate 14 17 18 Blood Pressure 117/56 L 95/55 L Pulse Oximetry 95 96 96 07/08/18 09:30 07/08/18 10:00 07/08/18 10:33 Temperature Pulse Rate 43 L 43 L 43 L Respiratory Rate 18 18 18 Blood Pressure 103/51 L 106/58 L 106/53 L Pulse Oximetry 95 96 97 07/08/18 11:00 07/08/18 11:01 07/08/18 11:31 Temperature Pulse Rate 42 L 42 L 42 L Respiratory Rate 15 18 19 Blood Pressure 98/51 L 138/59 L Pulse Oximetry 99 99 98 07/08/18 11:51 07/08/18 12:00 07/08/18 12:01 Temperature 94.5 F L Pulse Rate 45 L 45 L Respiratory Rate 18 19 18 Blood Pressure 117/55 L Pulse Oximetry 96 96 95 07/08/18 12:31 07/08/18 13:00 07/08/18 13:30 Temperature Pulse Rate 45 L 42 L 45 L Respiratory Rate 15 20 11 L Blood Pressure 95/50 L 98/55 L 96/51 L Pulse Oximetry 97 96 93 L 07/08/18 13:45 07/08/18 14:00 07/08/18 14:15 Temperature Pulse Rate 44 L 43 L 44 L Respiratory Rate 14 13 14 Blood Pressure 92/53 L 86/49 L 84/51 L Pulse Oximetry 95 95 93 L 07/08/18 14:30 07/08/18 14:45 07/08/18 15:00 Temperature Pulse Rate 45 L 47 L 45 L Respiratory Rate 15 13 14 Blood Pressure 83/51 L 86/53 L 88/55 L Pulse Oximetry 93 L 94 L 93 L 07/08/18 15:15 07/08/18 15:30 07/08/18 16:00 Temperature 98.2 F Pulse Rate 57 L 54 L 60 Respiratory Rate 15 18 19 Blood Pressure 95/53 L 92/50 L 112/56 L Pulse Oximetry 95 95 95 07/08/18 16:02 Temperature Pulse Rate 60 Respiratory Rate 18 Blood Pressure Pulse Oximetry Intake & Output 07/07/18 07/08/18 07/08/18 18:59 06:59 18:59 Intake Total 1350 / 1350 1318 / 1318 1685 / 1685 Output Total 950 / 950 300 / 300 2364 / 2364 Balance 400 / 400 1018 / 1018 -679 / -679 Weight 79 kg Intake: IV 1350 / 1350 1100 / 1100 1200 / 1200 NS Inj 1,000 ML @ 84 mls/hr IV. 1000 / 1000 1000 / 1000 1000 / 1000 CONT .[id number] [facility] Rx#:[id number] Flexbumin 25% Inj 100 ML @ 60 100 / 100 100 / 100 200 / 200 mls/hr IV.SIG Q8H [facility] Rx#: [id number] 10 mcg/mL Premix Drip 250 / 250 2,500 mcg In 250 ml @ 50 MCG/HR 5 mls/hr IV.SIG TITRATE PRN Rx #:[id number] Oral 0 / 0 0 / 0 Tube Feeding 218 / 218 305 / 305 Tube Irrigant 180 / 180 Output: Hemodialysis Amount 1999 / 1999 Urine Amount (Catheter) 550 / 550 Straight 550 / 550 Chest Tube Drainage 400 / 400 300 / 300 364 / 364 #1 Right Mid-Axillary Chest 400 / 400 300 / 300 364 / 364 Other: # Incontinent Voids 0 Date of Last Bowel Movement 07/05/18 07/05/18 # Bowel Movements 0 0 # Incontinent Bowel Movements 0 Result Diagrams: 07/08/18 10:27 07/08/18 10:27 Laboratory Results: Laboratory Results - last 24 hr 07/07/18 07/07/18 07/07/18 18:30 18:30 18:30 WBC RBC Hgb Hct MCV MCH MCHC RDW Plt Count MPV Prelim Diff (Auto) Neut % (Auto) Lymph % (Auto) [place] % (Auto) Eos % (Auto) Baso % (Auto) Neut # (Auto) Lymph # (Auto) [place] # (Auto) Eos # (Auto) Baso # (Auto) WBC Differential Seg Neuts % (Manual) Lymphocytes % (Manual) Monocytes % (Manual) Eosinophils % (Manual) Basophils % (Manual) Abs Neuts (Manual) Differential Comment Smudge Cells Platelet Estimate Platelet Morphology Ovalocytes Raz Cells Sodium Potassium Chloride Carbon Dioxide Anion Gap BUN Creatinine Estimated GFR POC Glucose Random Glucose Calcium Phosphorus Magnesium Urine Color Mónica Urine Clarity Hazy H Urine pH 5.0 Ur Specific [place] 1.017 Urine Protein 100 H Urine Glucose (UA) Negative Urine Ketones Negative Urine Occult Blood Small H Urine Nitrate Negative Urine Bilirubin Negative Urine Urobilinogen Less than 2 Ur Leukocyte Esterase Trace H Urine RBC 1 Urine WBC 2 Ur Squamous Epith Cells <1 Amorphous Sediment Rare H Urine Bacteria Few H Hyaline Casts 1 Micro UA Comment Cath-culture ind Ur Microscopic Review Not Reportable Urine Culture Comments Cath-cult indicated Urine Eosinophils None seen Ur Random Creatinine 105 Ur Random Sodium 27 07/08/18 07/08/18 07/08/18 00:18 06:33 10:27 WBC 49.4 H RBC 3.09 L Hgb 9.6 L Hct 29.7 L MCV 96.2 MCH 31.0 MCHC 32.3 RDW 17.7 H Plt Count 127 L MPV 8.8 Prelim Diff (Auto) Slide review pending Neut % (Auto) 26.7 Lymph % (Auto) 67.5 H [place] % (Auto) 3.1 Eos % (Auto) 2.4 Baso % (Auto) 0.3 Neut # (Auto) 13.2 H Lymph # (Auto) 33.4 H [place] # (Auto) 1.5 H Eos # (Auto) 1.2 H Baso # (Auto) 0.1 WBC Differential Manual diff final Seg Neuts % (Manual) 19 Lymphocytes % (Manual) 71 H Monocytes % (Manual) 4 Eosinophils % (Manual) 5 H Basophils % (Manual) 1 Abs Neuts (Manual) 9.4 H Differential Comment . Smudge Cells Present H Platelet Estimate Low L Platelet Morphology Normal Ovalocytes 1+ H [place] Cells 1+ H Sodium Potassium Chloride Carbon Dioxide Anion Gap BUN Creatinine Estimated GFR POC Glucose 113 H 123 H Random Glucose Calcium Phosphorus Magnesium Urine Color Urine Clarity Urine pH Ur Specific [place] Urine Protein Urine Glucose (UA) Urine Ketones Urine Occult Blood Urine Nitrate Urine Bilirubin Urine Urobilinogen Ur Leukocyte Esterase Urine RBC Urine WBC Ur Squamous Epith Cells Amorphous Sediment Urine Bacteria Hyaline Casts Micro UA Comment Ur Microscopic Review Urine Culture Comments Urine Eosinophils Ur Random Creatinine Ur Random Sodium 07/08/18 07/08/18 07/08/18 10:27 12:38 16:51 WBC RBC Hgb Hct MCV MCH MCHC RDW Plt Count MPV Prelim Diff (Auto) Neut % (Auto) Lymph % (Auto) [place] % (Auto) Eos % (Auto) Baso % (Auto) Neut # (Auto) Lymph # (Auto) [place] # (Auto) Eos # (Auto) Baso # (Auto) WBC Differential Seg Neuts % (Manual) Lymphocytes % (Manual) Monocytes % (Manual) Eosinophils % (Manual) Basophils % (Manual) Abs Neuts (Manual) Differential Comment Smudge Cells Platelet Estimate Platelet Morphology Ovalocytes Raz Cells Sodium 141 Potassium 4.5 Chloride 110 H Carbon Dioxide 17.9 L Anion Gap 13 BUN 94 H Creatinine 5.79 H Estimated GFR 7 L POC Glucose 110 139 H Random Glucose 135 H Calcium 8.4 L Phosphorus 4.1 Magnesium 1.8 Urine Color Urine Clarity Urine pH Ur Specific [place] Urine Protein Urine Glucose (UA) Urine Ketones Urine Occult Blood Urine Nitrate Urine Bilirubin Urine Urobilinogen Ur Leukocyte Esterase Urine RBC Urine WBC Ur Squamous Epith Cells Amorphous Sediment Urine Bacteria Hyaline Casts Micro UA Comment Ur Microscopic Review Urine Culture Comments Urine Eosinophils Ur Random Creatinine Ur Random Sodium Culture Results: Microbiology 07/07/18 18:30 Urine Culture - Preliminary Catheterized Urine No growth. 07/06/18 15:15 Acid Fast Bacilli Smear - Final Fluid - Pleural fluid No acid fast bacilli seen 07/06/18 05:15 Aerobic Blood Culture - Preliminary Blood - Peripheral No growth in 2 days Anaerobic Blood Culture - Preliminary No growth in 2 days 07/06/18 05:20 Aerobic Blood Culture - Preliminary Blood - Peripheral No growth in 2 days Anaerobic Blood Culture - Preliminary No growth in 2 days 07/06/18 15:15 Gram Stain - Final Fluid - Pleural fluid Body Fluid Culture - Preliminary No growth in 48 hours 07/06/18 11:50 Gram Stain - Final Sputum - Endotracheal Sputum Culture - Final Moderate growth normal respiratory yaneth 07/06/18 15:15 Fungal Smear - Final Fluid - Pleural fluid No fungal elements seen 07/06/18 08:10 Influenza Types A,B Antigen - Final Nasal Wash Negative for FLU A and B antigen Infection due to influenza A or B cannot be ruled out since the antigen present in the sample may be below the detection limit of the test. Imaging Studies: Impressions Chest X-Ray 07/07/18 00:00 CONCLUSION: Slight improvement in aeration. Medications: Active Medications Generic Name Dose Route Start Last Admin Trade Name Freq PRN Reason Stop Dose Admin Albuterol 1 ampul 07/06/18 08:00 07/08/18 16:02 Duoneb Neb (Valencia) NEB 1 ampul Q4HR NEB VALENCIA Administration Allopurinol 100 mg 07/06/18 09:00 07/08/18 08:22 Zyloprim PO 100 mg DAILY VALENCIA Administration Artificial Tears 1 drop 07/06/18 05:00 07/08/18 12:39 Tears Naturale Opth Drops EACH EYE 1 drop Q8H VALENCIA Administration Chlorhexidine Gluconate 15 ml 07/06/18 08:00 07/08/18 08:23 Peridex 0.12% Oral Kit OROPHARYNG 15 ml BID@0800,2000 VALENCIA Administration Gentamicin Sulfate 20 mg 07/08/18 10:03 07/08/18 15:27 Gentamicin Inj OTHER 20 mg WITH DIALYSIS PRN Administration Dwell Gentamycin Lock Heparin Sodium (Porcine) 0 units 07/08/18 10:03 07/08/18 15:27 Heparin Inj OTHER 10,000 units WITH DIALYSIS PRN Administration Dwell Heparin to Fill Catheter Sodium Chloride 500 mls @ 30 mls/hr 06/28/18 10:00 06/28/18 17:12 Ns Inj IV.SIG Not Given .Q10H VALENCIA Albumin Human 100 mls @ 60 mls/hr 06/30/18 11:00 07/08/18 14:59 Flexbumin 25% Inj IV.SIG Infused Q8H VALENCIA Infusion Fentanyl 2,500 mcg in 250 mls @ 5 mls/hr 07/06/18 04:16 07/07/18 18:30 Fentanyl 10 Mcg/Ml Premix Drip IV.SIG 50 mcg/hr TITRATE PRN 5 mls/hr Per Protocol Administration Protocol 50 MCG/HR Insulin Aspart 0 unit 07/06/18 06:00 07/08/18 17:38 Novolog Insulin Correctional Sugar Inj SQ Not Given Q6HR [facility] Protocol Lactulose 30 ml 07/02/18 09:00 07/08/18 08:22 Lactulose Liq PO 30 ml DAILY VALENCIA Administration Levofloxacin 250 mg 07/07/18 09:00 07/07/18 09:16 Levaquin PO 07/11/18 09:01 250 mg Q48H VALENCIA Administration Levothyroxine Sodium 300 mcg 07/06/18 07:00 07/08/18 06:50 Synthroid PO 300 mcg DAILY@0700 VALENCIA Administration Melatonin 5 mg 07/02/18 20:06 07/05/18 20:22 Melatonin PO 5 mg HS PRN Administration INSOMNIA Metronidazole 250 mg 07/05/18 14:00 07/08/18 13:49 Flagyl PO 07/10/18 13:59 250 mg Q8HR VALENCIA Administration Midodrine 10 mg 06/30/18 12:00 07/08/18 16:58 Proamatine PO 10 mg TID@0700,1200,1700 VALENCIA Administration Mirtazapine 15 mg 07/05/18 21:00 07/07/18 20:58 Remeron PO 15 mg HS VALENCIA Administration Miscellaneous Medication 1 each 07/06/18 12:00 07/08/18 16:58 OROPHARYNG 1 each 0000,0400,1200,1600 VALENCIA Administration Nadolol 20 mg 06/26/18 09:00 07/08/18 08:23 Corgard PO Not Given DAILY VALENCIA Octreotide Acetate 50 mcg 06/30/18 14:00 07/08/18 13:52 Sandostatin Inj IV.PUSH Not Given Q8HR VALENCIA Ondansetron HCl 4 mg 07/01/18 18:41 07/03/18 13:03 Zofran Inj IV.PUSH 4 mg Q6H PRN Administration nausea/vomiting Pantoprazole Sodium 40 mg 07/06/18 05:00 07/08/18 04:51 Protonix Inj IV.PUSH 40 mg Q24H VALENCIA Administration Sodium Chloride 2 ml 06/28/18 21:00 07/08/18 08:23 Ns Flush IV.FLUSH 2 ml BID VALENCIA Administration Objective Remarks: GENERAL: chronically ill appearing patient SKIN: Warm and dry. HEAD: Normocephalic. EYES: No scleral icterus. No injection or drainage. NECK: Supple, trachea midline. No JVD or lymphadenopathy. LYMPHATIC: No adenopathy. CARDIOVASCULAR: Regular rate and rhythm without murmurs. RESPIRATORY: intubated and sedated GASTROINTESTINAL: Abdomen soft, non-tender, nondistended. EXTREMITIES: No edema. MUSCULOSKELETAL: Adequate muscle tone. NEUROLOGICAL: No obvious focal deficit. Assessment/Plan - Plan CLL, MORROW stage 0. No indication for treatment at this time. Even if treatment was warranted she would not be a good candidate for treatment due to ECOG performance status of 4, multiple comorbidities. She has acute renal failure, respiratory failure, new diagnosis of liver cirrhosis. She is being followed by multiple consultants and the critical care team. Consideration of hospice and withdrawl of care, family desires aggressive treatment. Poor overall prognosis. Oncology service will continue to follow peripherally.
[2018-07-08] MEDS: Mirtazapine 15 MG Tablet PO SCH (21:16)
[2018-07-09] MEDS: Insulin NovoLOG Aspart Correctional Sugar Inj SQ SCH ×4 (01:47→23:11)
[2018-07-09] MEDS: Albumin Human 25% Inj 100 ML IV.SIG SCH ×3 (03:08→19:56)
[2018-07-09] MEDS: Oral Hygiene Kit OROPHARYNG SCH ×4 (03:09→23:11)
--- NOTE | 2018-07-09 04:46 | XR ---
EXAM DATE: 07/09/2018 4:04 AM EST AGE/SEX: 72 years / Female INDICATIONS: Shortness of breath, possible pulmonary disease. CLINICAL DATA: This is the patient's subsequent encounter. Patient reports that signs and symptoms h ave been present for 1 week and indicates a pain score of Nonresponsive. MEDICAL/SURGICAL HISTORY: . Asthma. Diabetes. Hypertension. Leukemia. Thyroidectomy. COMPARISON: [facility] [place], CHEST 1V SINGLE AP, 07/07/2018. . FINDINGS: The endotracheal tube, left IJ dual-lumen catheter and feeding tube are in good position. There are b ilateral pleural effusions. There is bilateral perihilar vascular congestion. There is no visible pne umothorax. Heart and mediastinum unremarkable. There is pigtail catheter overlying the right hemidiap hragm CONCLUSION: Pulmonary vascular congestion. Bilateral pleural effusions left greater than right. Tubes and cathete rs are stable. Electronically signed by: Vikram Willett MD Board Certified Radiologist 07/09/2018 4:45 AM EST
[2018-07-09 05:06] LABS: Hematocrit 28.5 % (35.0-46.0); Hemoglobin 9.1 gm/dL (11.6-15.3); Mean Corpuscular Hemoglobin 30.6 pg (27.0-34.0); Mean Corpuscular Volume 95.6 fL (80.0-100.0); Mean Platelet Volume 8.8 fL (7.0-11.0); Platelet Count 117 th/mm3 (150-450); Red Blood Count 2.98 mil/mm3 (4.00-5.30); Red Cell Distribution Width 17.4 % (11.6-17.2); White Blood Count 49.4 th/mm3 (4.0-11.0)
[2018-07-09] MEDS: Artificial Tears Opth Drops 15 ML Bottle EACH EYE SCH ×3 (05:10→20:03)
[2018-07-09] MEDS: Octreotide Inj 50 MCG/ML Vial IV.PUSH SCH ×3 (05:10→21:07)
[2018-07-09] MEDS: Pantoprazole Inj 40 MG Vial IV.PUSH SCH (05:10)
[2018-07-09 05:43] LABS: Alanine Aminotransferase 25 U/L (10-53); Albumin 4.7 g/dL (3.4-5.0); Alkaline Phosphatase 144 U/L (45-117); Anion Gap 15 meq/L (5-15); Aspartate Aminotransferase 77 U/L (15-37); Blood Urea Nitrogen 76 mg/dL (7-18); Calcium 8.4 mg/dL (8.5-10.1); Carbon Dioxide 19.3 meq/L (21.0-32.0); Chloride 107 meq/L (98-107); Glomerular Filtration Rate 8 mL/min (>89); Glucose,Random 194 mg/dL (74-106); Magnesium 1.9 mg/dL (1.5-2.5); Potassium 4.2 meq/L (3.5-5.1); Sodium 141 meq/L (136-145); Total Protein 6.2 g/dL (6.4-8.2)
[2018-07-09] MEDS: Levothyroxine 150 MCG Tablet PO SCH (06:28)
[2018-07-09] MEDS: levoFLOXacin 250 MG Tablet PO SCH (08:59)
[2018-07-09] MEDS: Allopurinol 100 MG Tablet PO SCH (08:59)
[2018-07-09] MEDS: Nadolol 20 MG Tablet PO SCH (08:59)
[2018-07-09] MEDS: Chlorhexidine 0.12% Oral Kit 15 ML UDC OROPHARYNG SCH ×2 (08:59→19:57)
--- NOTE | 2018-07-09 09:35 | P.PNCC ---
Subjective Subjective Remarks/Hospital Course: This is a 72-year-old female. Admission 06/25/2008. Past medical history includes stage 0 CLL, asthma, diabetes, gout, hypertension and hypothyroidism. She initially presented to the hospital complaining of a several month history of progressive shortness of breath. This is associated orthopnea and difficulty ambulation. A dry nonproductive cough as well. No chest pain. On admission, patient was noted to have moderate ascites and a significant right pleural effusion. She received paracentesis on 06/25 5700 cc and on 06/28 5900 cc. She had a right-sided thoracentesis 1200 cc on 06/25. CT abdomen pelvis showed likely liver cirrhosis and moderate ascites. She also had a CT of the abdomen and pelvis which did not show any lymphadenopathy. She has not been febrile. She has had thoracentesis and they took out 1.2 L of fluid. 06/28 had an upper endoscopy. EGD revealed esophagitis, distal esophageal ulcer, portal hypertensive gastropathy. She started worsening renal failure and worsening leukocytosis. Due to the possibility of hepatorenal syndrome a TIPS was performed by IR 07/01. She has been on beta-ilana, diuretics and midodrine in the interim along with octreotide. Patient been pancultured which no growth today. Current levofloxacin and metronidazole. No obvious source of infection at the present time. The past couple nights patient is been in ICU. She is become more confused and will not keep her BiPAP on due to agitation. She is received 2 stenosis of lorazepam tonight. I was asked to see the patient due to worsening respiratory issues including tachypnea and altered mental status including unresponsive. PH is 7.35. PCO2 47. PO2 74. Base index -6. She is on a nonrebreather. She is intubated using 20 mg etomidate and 8.0 ET tube at 23 cm at lip. They were unable to pass an NG tube.. 07/07/18: Remains intubated sedated. Renal function is worsening creatinine close to 6 now. Remains anuric. Large right pleural effusion drained yesterday 1.4 L since pigtail chest tube placement. Currently sedated with fentanyl will wake up follows some commands 07/08/18: Patient remains intubated mildly sedated with fentanyl infusion. Remains anuric with worsening renal function. HD catheter was placed yesterday. Will initiate hemodialysis today per nephrology. Right chest tube with 700 mL output in the last 24 hours 07/09/18: Remains critical wearing ventilator support. Remains anuric hemodialysis started yesterday 2 L removed. Right pleural effusion improved with chest tube, left moderate large pleural effusion. Plan for thoracentesis and then start CPAP trials. Objective Vital Signs / I&O: Vital Signs 07/08/18 09:30 07/08/18 10:00 07/08/18 10:33 Temperature Pulse Rate 43 L 43 L 43 L Respiratory Rate 18 18 18 Blood Pressure 103/51 L 106/58 L 106/53 L Pulse Oximetry 95 96 97 07/08/18 11:00 07/08/18 11:01 07/08/18 11:31 Temperature Pulse Rate 42 L 42 L 42 L Respiratory Rate 15 18 19 Blood Pressure 98/51 L 138/59 L Pulse Oximetry 99 99 98 07/08/18 11:51 07/08/18 12:00 07/08/18 12:01 Temperature 94.5 F L Pulse Rate 45 L 45 L Respiratory Rate 18 19 18 Blood Pressure 117/55 L Pulse Oximetry 96 96 95 07/08/18 12:31 07/08/18 13:00 07/08/18 13:30 Temperature Pulse Rate 45 L 42 L 45 L Respiratory Rate 15 20 11 L Blood Pressure 95/50 L 98/55 L 96/51 L Pulse Oximetry 97 96 93 L 07/08/18 13:45 07/08/18 14:00 07/08/18 14:15 Temperature Pulse Rate 44 L 43 L 44 L Respiratory Rate 14 13 14 Blood Pressure 92/53 L 86/49 L 84/51 L Pulse Oximetry 95 95 93 L 07/08/18 14:30 07/08/18 14:45 07/08/18 15:00 Temperature Pulse Rate 45 L 47 L 45 L Respiratory Rate 15 13 14 Blood Pressure 83/51 L 86/53 L 88/55 L Pulse Oximetry 93 L 94 L 93 L 07/08/18 15:15 07/08/18 15:30 07/08/18 16:00 Temperature 98.2 F Pulse Rate 57 L 54 L 60 Respiratory Rate 15 18 19 Blood Pressure 95/53 L 92/50 L 112/56 L Pulse Oximetry 95 95 95 07/08/18 16:02 07/08/18 20:00 07/08/18 20:22 Temperature 101.6 F H Pulse Rate 60 62 62 Respiratory Rate 18 18 18 Blood Pressure 98/50 L Pulse Oximetry 95 95 07/08/18 23:59 07/09/18 00:00 07/09/18 03:56 Temperature 99.4 F Pulse Rate 69 71 62 Respiratory Rate 18 18 18 Blood Pressure 105/56 L Pulse Oximetry 96 97 95 07/09/18 04:00 07/09/18 07:48 07/09/18 07:49 Temperature 98.6 F Pulse Rate 54 L 56 L Respiratory Rate 18 13 14 Blood Pressure 105/54 L Pulse Oximetry 100 99 Intake & Output 07/08/18 07/09/18 07/09/18 18:59 06:59 18:59 Intake Total 1984 687 / 687 Output Total 2364 / 2364 Balance -379 / -379 687 / 687 Weight 85.9 kg Intake: IV 1500 / 1500 100 / 100 NS Inj 1,000 ML @ 84 mls/hr IV. 1200 / 1200 CONT .[id number] [facility] Rx#:[id number] Flexbumin 25% Inj 100 ML @ 60 300 / 300 100 / 100 mls/hr IV.SIG Q8H [facility] Rx#: [id number] Tube Feeding 305 / 305 587 / 587 Tube Irrigant 180 / 180 Output: Hemodialysis Amount 1999 Chest Tube Drainage 364 / 364 #1 Right Mid-Axillary Chest 364 / 364 Other: # Incontinent Voids 0 0 Date of Last Bowel Movement 07/09/18 # Bowel Movements 2 # Incontinent Bowel Movements 0 Result Diagrams: 07/09/18 04:34 07/09/18 04:34 Objective Remarks: - Constitutional Lying in bed appears ill anuric - Routine HEENT Exam Head: Present: normocephalic, atraumatic Eye: Present: EOMI, PERRL ENT: Present: Orotracheally intubated - Routine Neck Exam Present: supple, full ROM. Absent: JVD Bandage from tips in right neck - Routine Respiratory Exam Present: patient mechanically ventilated, crackles, distant breath sounds, diminished air movement. Right pigtail catheter with approximately 300 mL output - Routine Cardiovascular Exam Present: RRR, S1, S2. Absent: murmur - Routine Abdominal Exam Present: soft, normoactive bowel sounds - Routine Skin Exam Present: intact, dry. Absent: cyanosis, erythema - Routine Neurological Exam Intubated sedated wakes up easily follows commands x4. No focal deficits Assessment and Plan - Assessment and Plan Plan: Neuro/Psych: Acute encephalopathy likely secondary to CO2 retention-improving Currently on fentanyl for sedation/analgesia while intubated. Goal of RASS -1. Daily sedation vacation Ammonia level <10 CT brain 06/25 revealed no acute intracranial findings On lightening sedation patient continues to follow commands intermittently CV: Essential hypertension Bradycardia Currently on nadolol 20 mg daily-hold due to bradycardia, continue midodrine 10 mg 3 times daily Lasix to 60 mg IV every 6 hours with no response. Hemodialysis started Echocardiogram -EF 55-60%. Normal LV systolic function. Trace mitral valve regurgitation. Mitral annular calcification is present. Cannot rule out a small mobile echodensity on the left ventricular side of the anterior leaflet towards the left ventricular outflow tract in parasternal views. Clinical correlation recommended There is trace tricuspid valve regurgitation. The estimated pulmonary arterial pressure is 38 mmHg. Blood cultures have been negative Resp: Acute hypoxemic respiratory failure Right pleural effusion status post thoracentesis 06/25 -1200 cc, right pigtail chest tube placement 07/06/2018 [facility] ventilation. Head of bed at 30 degrees Daily CPAP trials Ventilator bundle. Albuterol/ipratropium aerosols every 4 hours with albuterol every 2 hours as needed dyspnea Follow postintubation chest x-ray and ABG Right pigtail chest tube placed 07/06/2018, with 1.4 L drained. 300 mL in 24 hours output Evaluate left pleural [id number] plan for thoracentesis to facilitate CPAP trials GI: Portal hypertensive gastropathy LA class B esophagitis Distal esophageal ulcer Ascites -paracentesis 5700 cc 06/25. 5900 cc 06/28 Status post TIPS 07/01 for possible hepatorenal syndrome CT abdomen/pelvis 06/25 revealed cirrhotic type liver. Left-sided hydronephrosis. Moderate ascites EGD 06/28 revealed LA class B esophagitis. 7 mm distal esophageal ulcer. Portal hypertensive gastropathy.H. pylori negative. Lasix and Midodrine. Discontinued Aldactone due to worsening renal failure Pantoprazole 40 mg IV daily. On octreotide 50 mcg IV every 8 hours for portal hypertension gastropathy, HRS Being followed by GI. Negative CA-19-9, alpha-fetoprotein, beta-hCG. Negative hepatitis panel Endo: Diabetes mellitus Hypothyroidism Gout Sliding scale insulin Accu-Cheks to maintain euglycemia/low every 6 hours aspart insulin Holding glipizide 5 mg daily/home medication Patient is on levothyroxine 300 mcg daily. Patient is on allopurinol at home. Hold due to renal failure Renal: Acute kidney failure I discussed with patient's he wants to pursue dialysis Monitor urine output. Accurate I's and O's. Hemodialysis catheter placed, started hemodialysis 07/08/2018 [place] catheter be placed for accurate I's and O's in a critical patient Avoid nephrotoxic medication No hydronephrosis on CT abdomen/pelvis on admission Nephrology following Heme: CLL [id number] score 0 Leukocytosis Normocytic anemia Followed by Dr. Flores/oncology. Follow-up on coags, CBC this a.m. Currently no indication for transfusion of blood products at this time. ID: Followed by infectious disease. Currently levofloxacin and metronidazole Peritoneal and pleural fluid 06/25 no growth today. Pleural fluid no growth to date F/U blood cultures x2, sputum, UA and influenza a and B now Access-utilize peripheral IV. Central line if indicated Prophylaxis -GI -pantoprazole -DVT -SCDs/heparin subcu Consult 35 minutes critical care time
--- NOTE | 2018-07-09 10:03 | P.PNPL ---
Subjective Interval history: Patient remains intubated on CPAP. Off sedation. Afebrile. Physical Exam Vital signs: Vital Signs 07/08/18 10:00 07/08/18 10:33 07/08/18 11:00 Temperature Pulse Rate 43 L 43 L 42 L Respiratory Rate 18 18 15 Blood Pressure 106/58 L 106/53 L Pulse Oximetry 96 97 99 07/08/18 11:01 07/08/18 11:31 07/08/18 11:51 Temperature Pulse Rate 42 L 42 L Respiratory Rate 18 19 18 Blood Pressure 98/51 L 138/59 L Pulse Oximetry 99 98 96 07/08/18 12:00 07/08/18 12:01 07/08/18 12:31 Temperature 94.5 F L Pulse Rate 45 L 45 L 45 L Respiratory Rate 19 18 15 Blood Pressure 117/55 L 95/50 L Pulse Oximetry 96 95 97 07/08/18 13:00 07/08/18 13:30 07/08/18 13:45 Temperature Pulse Rate 42 L 45 L 44 L Respiratory Rate 20 11 L 14 Blood Pressure 98/55 L 96/51 L 92/53 L Pulse Oximetry 96 93 L 95 07/08/18 14:00 07/08/18 14:15 07/08/18 14:30 Temperature Pulse Rate 43 L 44 L 45 L Respiratory Rate 13 14 15 Blood Pressure 86/49 L 84/51 L 83/51 L Pulse Oximetry 95 93 L 93 L 07/08/18 14:45 07/08/18 15:00 07/08/18 15:15 Temperature Pulse Rate 47 L 45 L 57 L Respiratory Rate 13 14 15 Blood Pressure 86/53 L 88/55 L 95/53 L Pulse Oximetry 94 L 93 L 95 07/08/18 15:30 07/08/18 16:00 07/08/18 16:02 Temperature 98.2 F Pulse Rate 54 L 60 60 Respiratory Rate 18 19 18 Blood Pressure 92/50 L 112/56 L Pulse Oximetry 95 95 07/08/18 20:00 07/08/18 20:22 07/08/18 23:59 Temperature 101.6 F H Pulse Rate 62 62 69 Respiratory Rate 18 18 18 Blood Pressure 98/50 L Pulse Oximetry 95 95 96 07/09/18 00:00 07/09/18 03:56 07/09/18 04:00 Temperature 99.4 F 98.6 F Pulse Rate 71 62 54 L Respiratory Rate 18 18 18 Blood Pressure 105/56 L 105/54 L Pulse Oximetry 97 95 100 07/09/18 07:48 07/09/18 07:49 Temperature Pulse Rate 56 L Respiratory Rate 13 14 Blood Pressure Pulse Oximetry 99 Intake & Output 07/08/18 07/09/18 07/09/18 18:59 06:59 18:59 Intake Total 1984 687 / 687 Output Total 2364 / 2364 Balance -379 / -379 687 / 687 Weight 85.9 kg Intake: IV 1500 / 1500 100 / 100 NS Inj 1,000 ML @ 84 mls/hr IV. 1200 / 1200 CONT .[id number] [facility] Rx#:[id number] Flexbumin 25% Inj 100 ML @ 60 300 / 300 100 / 100 mls/hr IV.SIG Q8H [facility] Rx#: [id number] Tube Feeding 305 / 305 587 / 587 Tube Irrigant 180 / 180 Output: Hemodialysis Amount 1999 Chest Tube Drainage 364 / 364 #1 Right Mid-Axillary Chest 364 / 364 Other: # Incontinent Voids 0 0 Date of Last Bowel Movement 07/09/18 # Bowel Movements 2 # Incontinent Bowel Movements 0 - Constitutional no acute distress - Routine HEENT Exam Head: Present: normocephalic, atraumatic Eye: Present: EOMI, PERRL, normal accommodation, conjunctivae pink ENT: Present: mucous membranes moist - Routine Neck Exam Present: supple, full ROM, trachea midline - Routine Respiratory Exam Present: patient mechanically ventilated, CTA bilaterally - Routine Cardiovascular Exam Present: RRR, S1, S2 - Routine Abdominal Exam Present: soft, normoactive bowel sounds - Routine Extremities Exam Present: pulses intact - Routine Skin Exam Present: intact - Routine Neurological Exam Present: altered mental status - Urinary Catheter Management Straight Cath placed during this visit: yes, but has since been removed by the nurse Reason for continuing: Not indwelling catheter Insertion date: 07/07/18 Insertion time: 18:00 Removal date: 07/07/18 Removal time: 18:20 Assessment and Plan - Plan 1)VDRF 2)Right lung infiltrate. 3)B/L pleural effusion. 4)HTN 5)Acute on CKD 6)CLL 7)HTN 8)DM 9)Severe leucocytosis PLAN: Continue with cent support keep sats >92% Bronchodilators, ICU vent bundle SBT daily as miguel. Daily sedation vacation. Monitor neuro status. status post thoracentesis 06/25 right pigtail chest tube placement 07/06/2018. Exudative effusion by protein criteria likely 2nd diuretics. Fluid culture no growth. Monitor CT drainage. For left sided CT placement today. Cont Abx per ID ( Levaquin/Flagyl) monitor for signs of infections ( fever, WBC) Monitor renal function. HD per Renal. GI/DVT prophylaxis-Heparin 5000 IU SQ q 12 hrs Continue treat plan
[2018-07-09] MEDS ORDERED: Midazolam Inj 5 MG/ML 1 ML Vial ONE (10:14)
[2018-07-09] MEDS ORDERED: Midazolam Inj 5 MG/ML 1 ML Vial IV.PUSH ONE (10:45)
--- NOTE | 2018-07-09 10:48 | P.PNID ---
Subjective Remarks: ID coverage: Patient is a 72-year-old female presented to the hospital complaining of shortness of breath. She has had problem with shortness of breath over the last several months, but it has progressively worsened that she has difficulty ambulating. She gets orthopnea. She occasionally has cough but no phlegm. Denies any chest pain. She admits to some intermittent low-grade fevers. It was also noted that her abdomen has been more distended. On evaluation she was found to have pleural effusions as well as ascites and liver cirrhosis on ultrasound. She also had a CT of the abdomen and pelvis which did not show any lymphadenopathy. She has not been febrile. She has had thoracentesis and they took out 1.2 L of fluid. Paracentesis and they took out 5.7 L of ascites. Since admission she has had leukocytosis of 20,000 and higher. 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 She has not required any treatment for her CLL. Patient had upper endoscopy. She has had some diarrhea. She is noted increased abdominal girth again. Patient also has had increasing creatinine, and her urine output has been decreasing. Stool for C. difficile is negative. I do not have a urinalysis. Her initial chest x-ray on admission showing a right base infiltrate and effusion. Her last chest x-ray after she has had thoracenteses showed hypoaeration, with no infiltrates seen. Patient has been on Rocephin since admission. Infectious disease consultation has been requested to assist with evaluation and treatment of leukocytosis. Patient opens eyes to commands. Currently on CPAP. Thoracentesis and plans to extubate today. Discussed with RN. No significant overnight events. Temp of 101.9 overnight. Plans for hemodialysis today. WBC at 40 9K today. Pigtail cath placed on her R chest Had TIPS procedure 07/01 Antibiotics: Levaquin Flagyl Lines: TEREZAJ vascath PIV Past Medical History: Asthma Diabetes Gout Hypertension Leukemia H/O foot surgery H/O thyroidectomy Allergies/Adverse Reactions: Allergies No Known Allergies Allergy (Verified 06/25/18 05:25) Objective Vital Signs 07/08/18 11:00 07/08/18 11:01 07/08/18 11:31 Temperature Pulse Rate 42 L 42 L 42 L Respiratory Rate 15 18 19 Blood Pressure 98/51 L 138/59 L Pulse Oximetry 99 99 98 07/08/18 11:51 07/08/18 12:00 07/08/18 12:01 Temperature 94.5 F L Pulse Rate 45 L 45 L Respiratory Rate 18 19 18 Blood Pressure 117/55 L Pulse Oximetry 96 96 95 07/08/18 12:31 07/08/18 13:00 07/08/18 13:30 Temperature Pulse Rate 45 L 42 L 45 L Respiratory Rate 15 20 11 L Blood Pressure 95/50 L 98/55 L 96/51 L Pulse Oximetry 97 96 93 L 07/08/18 13:45 07/08/18 14:00 07/08/18 14:15 Temperature Pulse Rate 44 L 43 L 44 L Respiratory Rate 14 13 14 Blood Pressure 92/53 L 86/49 L 84/51 L Pulse Oximetry 95 95 93 L 07/08/18 14:30 07/08/18 14:45 07/08/18 15:00 Temperature Pulse Rate 45 L 47 L 45 L Respiratory Rate 15 13 14 Blood Pressure 83/51 L 86/53 L 88/55 L Pulse Oximetry 93 L 94 L 93 L 07/08/18 15:15 07/08/18 15:30 07/08/18 16:00 Temperature 98.2 F Pulse Rate 57 L 54 L 60 Respiratory Rate 15 18 19 Blood Pressure 95/53 L 92/50 L 112/56 L Pulse Oximetry 95 95 95 07/08/18 16:02 07/08/18 20:00 07/08/18 20:22 Temperature 101.6 F H Pulse Rate 60 62 62 Respiratory Rate 18 18 18 Blood Pressure 98/50 L Pulse Oximetry 95 95 07/08/18 23:59 07/09/18 00:00 07/09/18 03:56 Temperature 99.4 F Pulse Rate 69 71 62 Respiratory Rate 18 18 18 Blood Pressure 105/56 L Pulse Oximetry 96 97 95 07/09/18 04:00 07/09/18 07:48 07/09/18 07:49 Temperature 98.6 F Pulse Rate 54 L 56 L Respiratory Rate 18 13 14 Blood Pressure 105/54 L Pulse Oximetry 100 99 Intake & Output 07/08/18 07/09/18 07/09/18 18:59 06:59 18:59 Intake Total 1984 / 1984 687 / 687 Output Total 2364 / 2364 Balance -379 / -379 687 / 687 Weight 85.9 kg Intake: IV 1500 / 1500 100 / 100 NS Inj 1,000 ML @ 84 mls/hr IV. 1200 / 1200 CONT .[id number] [facility] Rx#:[id number] Flexbumin 25% Inj 100 ML @ 60 300 / 300 100 / 100 mls/hr IV.SIG Q8H [facility] Rx#: [id number] Tube Feeding 305 / 305 587 / 587 Tube Irrigant 180 / 180 Output: Hemodialysis Amount 1999 / 1999 Chest Tube Drainage 364 / 364 #1 Right Mid-Axillary Chest 364 / 364 Other: # Incontinent Voids 0 0 Date of Last Bowel Movement 07/09/18 # Bowel Movements 2 # Incontinent Bowel Movements 0 07/07/18 18:30 Catheterized Urine Urine Culture - Final No growth in 48 hours 07/06/18 15:15 Fluid - Pleural fluid Gram Stain - Final 07/06/18 15:15 Fluid - Pleural fluid Body Fluid Culture - Final No growth in 72 hours (aerobically and anaerobically ) 07/06/18 15:15 Fluid - Pleural fluid Acid Fast Bacilli Smear - Final No acid fast bacilli seen 07/06/18 15:15 Fluid - Pleural fluid Mycobacterial Culture - Pending 07/06/18 05:15 Blood - Peripheral Aerobic Blood Culture - Preliminary No growth in 2 days 07/06/18 05:15 Blood - Peripheral Anaerobic Blood Culture - Preliminary No growth in 2 days 07/06/18 05:20 Blood - Peripheral Aerobic Blood Culture - Preliminary No growth in 2 days 07/06/18 05:20 Blood - Peripheral Anaerobic Blood Culture - Preliminary No growth in 2 days 07/06/18 11:50 Sputum - Endotracheal Gram Stain - Final 07/06/18 11:50 Sputum - Endotracheal Sputum Culture - Final Moderate growth normal respiratory yaneth 07/06/18 15:15 Fluid - Pleural fluid Fungal Smear - Final No fungal elements seen 07/06/18 15:15 Fluid - Pleural fluid Fungal Culture - Pending 07/06/18 08:10 Nasal Wash Influenza Types A,B Antigen - Final Negative for FLU A and B antigen Infection due to influenza A or B cannot be ruled out since the antigen present in the sample may be below the detection limit of the test. Lab - Hematology Results 07/08/18 07/09/18 10:27 04:34 WBC 49.4 H 49.4 H RBC 3.09 L 2.98 L Hgb 9.6 L 9.1 L Hct 29.7 L 28.5 L MCV 96.2 95.6 MCH 31.0 30.6 MCHC 32.3 32.0 RDW 17.7 H 17.4 H Plt Count 127 L 117 L MPV 8.8 8.8 Prelim Diff (Auto) Slide review pending Neut % (Auto) 26.7 Lymph % (Auto) 67.5 H [place] % (Auto) 3.1 Eos % (Auto) 2.4 Baso % (Auto) 0.3 Neut # (Auto) 13.2 H Lymph # (Auto) 33.4 H [place] # (Auto) 1.5 H Eos # (Auto) 1.2 H Baso # (Auto) 0.1 WBC Differential Manual diff final Seg Neuts % (Manual) 19 Lymphocytes % (Manual) 71 H Monocytes % (Manual) 4 Eosinophils % (Manual) 5 H Basophils % (Manual) 1 Abs Neuts (Manual) 9.4 H Differential Comment . Smudge Cells Present H Platelet Estimate Low L Platelet Morphology Normal Ovalocytes 1+ H Raz Cells 1+ H Lab - Chemistry Results 07/07/18 07/07/18 07/08/18 16:11 16:50 00:18 Sodium 141 Potassium 4.9 Chloride 107 Carbon Dioxide 20.1 L Anion Gap 14 BUN 98 H Creatinine 5.75 H Estimated GFR 7 L POC Glucose 105 113 H Random Glucose 103 Calcium 8.2 L Phosphorus Magnesium Total Bilirubin 2.6 H AST 159 H ALT 43 Alkaline Phosphatase 119 H Total Protein 6.2 L Albumin 4.4 07/08/18 07/08/18 07/08/18 06:33 10:27 12:38 Sodium 141 Potassium 4.5 Chloride 110 H Carbon Dioxide 17.9 L Anion Gap 13 BUN 94 H Creatinine 5.79 H Estimated GFR 7 L POC Glucose 123 H 110 Random Glucose 135 H Calcium 8.4 L Phosphorus 4.1 Magnesium 1.8 Total Bilirubin AST ALT Alkaline Phosphatase Total Protein Albumin 07/08/18 07/08/18 07/09/18 16:51 23:17 04:34 Sodium 141 Potassium 4.2 Chloride 107 Carbon Dioxide 19.3 L Anion Gap 15 BUN 76 H Creatinine 5.27 H Estimated GFR 8 L POC Glucose 139 H 165 H Random Glucose 194 H Calcium 8.4 L Phosphorus Magnesium 1.9 Total Bilirubin 3.3 H AST 77 H ALT 25 Alkaline Phosphatase 144 H Total Protein 6.2 L Albumin 4.7 07/09/18 06:13 Sodium Potassium Chloride Carbon Dioxide Anion Gap BUN Creatinine Estimated GFR POC Glucose 199 H Random Glucose Calcium Phosphorus Magnesium Total Bilirubin AST ALT Alkaline Phosphatase Total Protein Albumin Imaging: ITS Impressions Abdomen Ultrasound 06/25/18 00:00 CONCLUSION: 1. Moderate ascites 2. Hepatic cirrhosis Abdomen/Pelvis CT 06/25/18 00:00 CONCLUSION: 1. Suspected cirrhotic liver. 2. Mild to moderate amount of ascites. 3. Bilateral pleural effusions being mild on the right and minimal on the left. 4. Increased density at the inferior right middle lobe and right lower lobe likely related to consolidation or atelectasis. 5. Anasarca 6. Tiny nonobstructing left renal stone. Chest Ultrasound 06/25/18 00:00 CONCLUSION: 1. Large right pleural effusion without appreciable loculation. Thoracentesis Ultrasound 06/25/18 00:00 CONCLUSION: 1. Uncomplicated right thoracentesis. Head CT 06/25/18 06:47 CONCLUSION: 1. Stable evaluation of the head. 2. No evidence of acute infarct, hemorrhage, mass or edema. . Paracentesis Ultrasound 06/29/18 00:00 CONCLUSION: 1. Uncomplicated paracentesis. TIPS 07/01/18 00:00 CONCLUSION: 1. Uncomplicated fluoroscopic guided placement of TIPS shunts from the right hepatic vein to the right portal vein, as above. PLAN: Baseline ultrasound examination in 2 weeks with surveillance ultrasound at 3 months, 6 months and one year. Abdomen X-Ray 07/06/18 11:06 CONCLUSION: Dobbhoff tube tip is noted within the expected region of the distal stomach. Chest X-Ray 07/09/18 06:00 CONCLUSION: Pulmonary vascular congestion. Bilateral pleural effusions left greater than right. Tubes and catheters are stable. Physical Exam: GENERAL: Sedated on the vent. SKIN: Cool and dry. No generalized rash. HEAD: Atraumatic. Normocephalic. No temporal wasting, or tenderness. EYES: [place] conjunctiva. No petechia or hemorrhage. Has scleral icterus. No injection or drainage. EARS, NOSE AND THROAT: Orally intubated NECK: Ecchymoses R side where they had venipunture for TIPS CARDIOVASCULAR: Regular rate and rhythm. No murmurs, rubs or gallops heard RESPIRATORY: Decreased breath sounds at bases. Cath R side with serous fluid ABDOMEN: Globular, soft, mildly distended, no reaction to palpation. Bowel sounds present and normoactive. EXTREMITIES: No clubbing, cyanosis. Has mild pedal edema. No calf tenderness. NEUROLOGICAL: Sedated PSYCHIATRIC: Unable to assess LINE: No evidence of infection Assessment and Plan - Plan Impression Leukocytosis, etiology? - ?reactive, up again - no obvious source of infection - CXR with infiltrates, sputum NF - UA ok - BC negative - pleural fluid negative - has new vascath, no other central line - C diff negative - ?part of her CLL, has lymphocyte predominance on manual diff Bilateral infiltrates - CHF likely, or ARDS Respiratory failure Eligio effusions and ascites, etiology? Known CLL, stage 0 Ascites, has liver cirrhosis on imaging - S/P TIPS Chest pain, ?etiology - ?related to TIPS Renal failure, creatinine rising Recommendation Monitor CBC Continue Levaquin and Flagyl for now To be started on HD today Palliative medicine following Cultures. Monitor progress D/W IONA
--- NOTE | 2018-07-09 10:52 | P.PCN ---
Date of procedure: 07/09/18 Pre-op diagnosis: Moderate left pl effusion, resp failure Post-op diagnosis: same Procedure: Ultrasound-guided left thoracentesis Consent was obtained from patient's prior to the procedure. Indications , risks, and benefits were explained at length. PROCEDURE SUMMARY: A time out was performed and the chest x-ray was reviewed, the appropriate side was confirmed and marked with ultrasound. My hands were washed immediately prior to the procedure. I wore a surgical cap, mask with protective eyewear, sterile gown and sterile gloves throughout the procedure. The patient was prepped and draped in a sterile manner using chlorhexidine scrub after the appropriate level was confirmed by ultrasound. 1% lidocaine was used to anesthetize the skin, subcutaneous tissue, superior aspect of the rib periosteum and parietal pleura. A 10-blade scalpel was used to mahamed the skin at the insertion site. Thoracentesis Angiocath was then introduced over the superior aspect of the rib to locate the pleural fluid; straw-colored fluid was aspirated. The thoracentesis catheter was then threaded without difficulty. 500 ml of straw colored fluid was removed without difficulty. The catheter was then removed. No immediate complications were noted during the procedure. A post- procedure chest x-ray is pending at the time of this note. The fluid will be sent for studies. Estimated blood loss is 1 ml Anesthesia: local Surgeon: Allan Sylvester Estimated blood loss (mL): 1 Pathology: other (fluid studies) Condition: critical Disposition: ICU
--- NOTE | 2018-07-09 11:36 | XR ---
EXAM DATE: 07/09/2018 11:28 AM EST AGE/SEX: 72 years / Female INDICATIONS: Shortness of breath. CLINICAL DATA: This is the patient's subsequent encounter. Patient reports that signs and symptoms h ave been present for 3 days and indicates a pain score of Nonresponsive. MEDICAL/SURGICAL HISTORY: Asthma. Diabetes mellitus type II. Hypertension. Thyroidectomy. COMPARISON: [facility] – [place], CHEST 1V SINGLE AP, 07/09/2018. . FINDINGS: The ET tube is 2 cm from the james. There appears to be a feeding tube or NG tube with its tip direc luc into the stomach. There is a left internal jugular central line placed with tip overlying the rig ht atrium. The heart size is normal. This increased density at the bases bilaterally. The aeration of the lung appears to be improving. CONCLUSION: Bibasilar areas of consolidation or atelectasis. Overall there is better aeration to lungs on the current exam. Electronically signed by: Higinio Bullard MD Board Certified Radiologist 07/09/2018 11:35 AM EST
--- NOTE | 2018-07-09 11:54 | P.PNNP ---
Subjective Interval history: Remains intubated, no acute events. Tolerated HD yesterday with 2L UF Physical Exam Vital signs: Vital Signs 07/08/18 11:51 07/08/18 12:00 07/08/18 12:01 Temperature 94.5 F L Pulse Rate 45 L 45 L Respiratory Rate 18 19 18 Blood Pressure 117/55 L Pulse Oximetry 96 96 95 07/08/18 12:31 07/08/18 13:00 07/08/18 13:30 Temperature Pulse Rate 45 L 42 L 45 L Respiratory Rate 15 20 11 L Blood Pressure 95/50 L 98/55 L 96/51 L Pulse Oximetry 97 96 93 L 07/08/18 13:45 07/08/18 14:00 07/08/18 14:15 Temperature Pulse Rate 44 L 43 L 44 L Respiratory Rate 14 13 14 Blood Pressure 92/53 L 86/49 L 84/51 L Pulse Oximetry 95 95 93 L 07/08/18 14:30 07/08/18 14:45 07/08/18 15:00 Temperature Pulse Rate 45 L 47 L 45 L Respiratory Rate 15 13 14 Blood Pressure 83/51 L 86/53 L 88/55 L Pulse Oximetry 93 L 94 L 93 L 07/08/18 15:15 07/08/18 15:30 07/08/18 16:00 Temperature 98.2 F Pulse Rate 57 L 54 L 60 Respiratory Rate 15 18 19 Blood Pressure 95/53 L 92/50 L 112/56 L Pulse Oximetry 95 95 95 07/08/18 16:02 07/08/18 20:00 07/08/18 20:22 Temperature 101.6 F H Pulse Rate 60 62 62 Respiratory Rate 18 18 18 Blood Pressure 98/50 L Pulse Oximetry 95 95 07/08/18 23:59 07/09/18 00:00 07/09/18 00:30 Temperature 99.4 F Pulse Rate 69 71 63 Respiratory Rate 18 18 18 Blood Pressure 105/56 L 102/54 L Pulse Oximetry 96 97 98 07/09/18 01:00 07/09/18 01:30 07/09/18 02:00 Temperature Pulse Rate 67 61 61 Respiratory Rate 18 18 18 Blood Pressure 106/59 L 103/58 L 94/53 L Pulse Oximetry 98 99 07/09/18 02:31 07/09/18 03:00 07/09/18 03:01 Temperature Pulse Rate 59 L 65 65 Respiratory Rate 18 18 18 Blood Pressure 92/47 L 123/57 L Pulse Oximetry 100 100 100 07/09/18 03:31 07/09/18 03:56 07/09/18 04:00 Temperature 98.6 F Pulse Rate 64 62 60 Respiratory Rate 14 18 19 Blood Pressure 125/57 L 105/54 L Pulse Oximetry 95 95 96 07/09/18 04:26 07/09/18 04:30 07/09/18 05:00 Temperature Pulse Rate 63 59 L 59 L Respiratory Rate 11 L 15 16 Blood Pressure 120/58 L 111/56 L 108/58 L Pulse Oximetry 95 98 97 07/09/18 05:30 07/09/18 06:00 07/09/18 06:30 Temperature Pulse Rate 56 L 54 L 54 L Respiratory Rate 13 18 18 Blood Pressure 107/53 L 105/54 L 112/55 L Pulse Oximetry 100 100 98 07/09/18 07:00 07/09/18 07:30 07/09/18 07:48 Temperature Pulse Rate 54 L 53 L Respiratory Rate 11 L 18 13 Blood Pressure 108/53 L 94/55 L Pulse Oximetry 100 99 99 07/09/18 07:49 07/09/18 08:00 07/09/18 08:10 Temperature Pulse Rate 56 L 54 L 53 L Respiratory Rate 14 11 L 9 L Blood Pressure 107/55 L Pulse Oximetry 100 100 07/09/18 08:30 07/09/18 09:00 07/09/18 09:30 Temperature Pulse Rate 56 L 54 L 52 L Respiratory Rate 11 L 8 L 10 L Blood Pressure 111/58 L 112/56 L 109/53 L Pulse Oximetry 100 98 100 07/09/18 10:00 07/09/18 10:34 07/09/18 11:00 Temperature Pulse Rate 51 L 51 L 49 L Respiratory Rate 12 14 18 Blood Pressure 99/51 L 95/56 L 98/55 L Pulse Oximetry 100 100 100 07/09/18 11:08 07/09/18 11:31 Temperature Pulse Rate 50 L 48 L Respiratory Rate 18 12 Blood Pressure 89/50 L Pulse Oximetry 100 97 Intake & Output 07/08/18 07/09/18 07/09/18 18:59 06:59 18:59 Intake Total 1984 687 / 687 Output Total 2364 / 2364 Balance -379 / -379 687 / 687 Weight 85.9 kg Intake: IV 1500 / 1500 100 / 100 NS Inj 1,000 ML @ 84 mls/hr IV. 1200 / 1200 CONT .[id number] [facility] Rx#:[id number] Flexbumin 25% Inj 100 ML @ 60 300 / 300 100 / 100 mls/hr IV.SIG Q8H [facility] Rx#: [id number] Tube Feeding 305 / 305 587 / 587 Tube Irrigant 180 / 180 Output: Hemodialysis Amount 1999 / 1999 Chest Tube Drainage 364 / 364 #1 Right Mid-Axillary Chest 364 / 364 Other: # Incontinent Voids 0 0 Date of Last Bowel Movement 07/09/18 07/09/18 # Bowel Movements 2 # Incontinent Bowel Movements 0 - Constitutional no acute distress - Routine HEENT Exam Head: Present: normocephalic ENT: Present: mucous membranes moist - Routine Neck Exam Present: supple - Routine Respiratory Exam Present: decreased breath sounds - Routine Cardiovascular Exam Present: RRR - Routine Abdominal Exam Present: soft - Routine Skin Exam Present: intact - Detailed Neurological Exam: Coma Scale Eye Opening: None Verbal Response: None - Urinary Catheter Management Straight Cath placed during this visit: yes, but has since been removed by the nurse Reason for continuing: Not indwelling catheter Insertion date: 07/07/18 Insertion time: 18:00 Removal date: 07/07/18 Removal time: 18:20 Assessment and Plan - Assessment (1) Acute on chronic kidney failure Code(s): N17.9 - Acute kidney failure, unspecified; N18.9 - Chronic kidney disease, unspecified Status: Acute Plan: Patient has chronic kidney disease and possibly has ATN. 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 Patient is not a good candidate for dialysis, patient and family previously informed. HD initiated yesterday with 2L UF Will do HD again today via left IJ catheter. Poor overall prognosis. Follow labs and UOP. HD again Wednesday. (2) Diabetes Code(s): E11.9 - Type 2 diabetes mellitus without complications Status: Acute Plan: Insulin coverage to maintain glucose levels between 140 and 180. (3) Abdominal distension Code(s): R14.0 - Abdominal distension (gaseous) Status: Acute Plan: s/p paracentesis x2.
[2018-07-09 12:27] LABS: RBC,Pleural Fluid 60 /mm3 (0-0)
[2018-07-09 12:29] LABS: Basophils,Pleural Fluid 1 %; Lymphocytes,Pleural Fluid 47 %; Mesothelial,Pleural Fluid 3 %; Monocytes,Pleural Fluid 40 %; Neutrophils,Pleural Fluid 6 %
[2018-07-09 12:42] LABS: Total Protein,Pleural Fluid 2.6 gm/dL
[2018-07-09] MEDS: fentaNYL 10 mcg/mL Premix Drip 2,500 MCG/250 ML BAG IV.SIG PRN (18:44)
[2018-07-09] MEDS: Mirtazapine 15 MG Tablet PO SCH (20:02)
[2018-07-10] MEDS: Albumin Human 25% Inj 100 ML IV.SIG SCH ×3 (02:02→19:27)
[2018-07-10] MEDS: Oral Hygiene Kit OROPHARYNG SCH ×4 (03:05→23:47)
[2018-07-10] MEDS: Pantoprazole Inj 40 MG Vial IV.PUSH SCH (04:00)
[2018-07-10] MEDS: Artificial Tears Opth Drops 15 ML Bottle EACH EYE SCH ×3 (04:01→20:47)
[2018-07-10] MEDS: Insulin NovoLOG Aspart Correctional Sugar Inj SQ SCH ×4 (05:09→23:46)
[2018-07-10] MEDS: Octreotide Inj 50 MCG/ML Vial IV.PUSH SCH ×3 (05:10→23:00)
--- NOTE | 2018-07-10 05:11 | XR ---
EXAM DATE: 07/10/2018 4:15 AM EST AGE/SEX: 72 years / Female INDICATIONS: Shortness of breath, possible pulmonary disease. CLINICAL DATA: This is the patient's subsequent encounter. Patient reports that signs and symptoms h ave been present for 4 - 6 days and indicates a pain score of Nonresponsive. MEDICAL/SURGICAL HISTORY: Asthma. Diabetes mellitus type II. Hypertension. Thyroidectomy. [place] [facility] [place]. . FINDINGS: Single view the chest demonstrates the ET tube, left IJ Vas-Cath and feeding tube all in good positio n. There is a right-sided pigtail catheter within the right hemithorax overlying the right hemidiaphr agm. There again is patchy airspace disease particularly in the right lung base. CONCLUSION: Tube and catheters in good position. Bilateral airspace disease most prominently in the right lung ba se Electronically signed by: Vikram Willett MD Board Certified Radiologist 07/10/2018 5:09 AM EST
[2018-07-10] MEDS: Levothyroxine 150 MCG Tablet PO SCH (06:02)
[2018-07-10 06:06] LABS: Hematocrit 26.2 % (35.0-46.0); Hemoglobin 8.5 gm/dL (11.6-15.3); Mean Corpuscular HGB Conc 32.3 % (32.0-36.0); Mean Corpuscular Hemoglobin 30.5 pg (27.0-34.0); Mean Corpuscular Volume 94.4 fL (80.0-100.0); Mean Platelet Volume 8.6 fL (7.0-11.0); Platelet Count 96 th/mm3 (150-450); Red Blood Count 2.78 mil/mm3 (4.00-5.30); Red Cell Distribution Width 17.6 % (11.6-17.2)
[2018-07-10 06:41] LABS: Alanine Aminotransferase 18 U/L (10-53); Albumin 4.7 g/dL (3.4-5.0); Alkaline Phosphatase 101 U/L (45-117); Anion Gap 13 meq/L (5-15); Aspartate Aminotransferase 43 U/L (15-37); Blood Urea Nitrogen 54 mg/dL (7-18); Calcium 8.4 mg/dL (8.5-10.1); Carbon Dioxide 24.4 meq/L (21.0-32.0); Chloride 106 meq/L (98-107); Glomerular Filtration Rate 10 mL/min (>89); Glucose,Random 190 mg/dL (74-106); Phosphorus 3.2 mg/dL (2.5-4.9); Potassium 3.6 meq/L (3.5-5.1); Sodium 143 meq/L (136-145); Total Protein 6.3 g/dL (6.4-8.2)
--- NOTE | 2018-07-10 10:18 | P.PNPL ---
Subjective Interval history: Patient remains intubated. On CPAP. s/p US guided left thoracentesis yesterday with removal 500ml pleural fluid. Physical Exam Vital signs: Vital Signs 07/09/18 10:34 07/09/18 11:00 07/09/18 11:08 Temperature Pulse Rate 51 L 49 L 50 L Respiratory Rate 14 18 18 Blood Pressure 95/56 L 98/55 L Pulse Oximetry 100 100 100 07/09/18 11:31 07/09/18 11:48 07/09/18 12:00 Temperature Pulse Rate 48 L 48 L 48 L Respiratory Rate 12 14 17 Blood Pressure 89/50 L 98/53 L Pulse Oximetry 97 97 97 07/09/18 13:00 07/09/18 13:17 07/09/18 13:30 Temperature Pulse Rate 47 L 47 L 46 L Respiratory Rate 16 18 15 Blood Pressure 95/52 L 77/47 L Pulse Oximetry 98 99 97 07/09/18 13:35 07/09/18 13:43 07/09/18 13:45 Temperature Pulse Rate 46 L 47 L 47 L Respiratory Rate 17 18 12 Blood Pressure 73/44 L 74/47 L 73/46 L Pulse Oximetry 97 97 98 07/09/18 14:00 07/09/18 14:15 07/09/18 14:30 Temperature Pulse Rate 49 L 48 L 49 L Respiratory Rate 19 16 13 Blood Pressure 90/53 L 89/50 L 87/53 L Pulse Oximetry 98 99 99 07/09/18 14:40 07/09/18 14:46 07/09/18 15:00 Temperature Pulse Rate 49 L 50 L 50 L Respiratory Rate 18 17 13 Blood Pressure 93/51 L 89/55 L Pulse Oximetry 98 99 07/09/18 15:15 07/09/18 15:30 07/09/18 15:32 Temperature Pulse Rate 50 L 58 L 56 L Respiratory Rate 16 14 14 Blood Pressure 93/53 L 119/56 L 111/56 L Pulse Oximetry 99 99 99 07/09/18 15:41 07/09/18 16:00 07/09/18 16:30 Temperature 98.0 F Pulse Rate 59 L 63 Respiratory Rate 12 8 L 9 L Blood Pressure 105/53 L 109/55 L Pulse Oximetry 99 100 99 07/09/18 17:00 07/09/18 17:30 07/09/18 18:00 Temperature Pulse Rate 54 L 51 L 50 L Respiratory Rate 10 L 18 18 Blood Pressure 101/57 L 97/53 L 108/55 L Pulse Oximetry 99 98 98 07/09/18 18:30 07/09/18 19:00 07/09/18 19:30 Temperature Pulse Rate 51 L 48 L 45 L Respiratory Rate 13 18 11 L Blood Pressure 108/55 L 110/54 L 96/52 L Pulse Oximetry 98 99 99 07/09/18 19:39 07/09/18 19:56 07/09/18 20:00 Temperature 97.7 F Pulse Rate 51 L 51 L Respiratory Rate 11 L 12 18 Blood Pressure 107/53 L Pulse Oximetry 97 96 07/09/18 20:30 07/09/18 21:00 07/09/18 21:01 Temperature Pulse Rate 61 51 L 51 L Respiratory Rate 19 12 11 L Blood Pressure 136/62 111/52 L Pulse Oximetry 100 97 97 07/09/18 21:18 07/09/18 21:30 07/09/18 22:00 Temperature Pulse Rate 51 L 54 L 55 L Respiratory Rate 16 12 Blood Pressure 111/77 121/56 L Pulse Oximetry 96 95 07/09/18 22:07 07/09/18 22:30 07/09/18 22:32 Temperature 96.6 F L 96.9 F L Pulse Rate 54 L Respiratory Rate 12 Blood Pressure 101/54 L Pulse Oximetry 96 07/09/18 23:00 07/09/18 23:07 07/09/18 23:26 Temperature 96.6 F L Pulse Rate 54 L 50 L Respiratory Rate 12 9 L Blood Pressure 113/56 L Pulse Oximetry 95 98 07/09/18 23:30 07/09/18 23:44 07/10/18 00:00 Temperature 97.1 F L Pulse Rate 50 L 50 L Respiratory Rate 12 13 Blood Pressure 100/52 L 95/54 L Pulse Oximetry 98 97 07/10/18 00:31 07/10/18 00:37 07/10/18 01:00 Temperature 97.6 F Pulse Rate 54 L 51 L Respiratory Rate 12 12 Blood Pressure 120/59 L 108/54 L Pulse Oximetry 95 98 07/10/18 01:06 07/10/18 01:30 07/10/18 01:35 Temperature 97.7 F 97.5 F L Pulse Rate 53 L Respiratory Rate 16 Blood Pressure 109/58 L Pulse Oximetry 98 07/10/18 02:00 07/10/18 02:30 07/10/18 03:00 Temperature Pulse Rate 52 L 53 L 54 L Respiratory Rate 12 12 12 Blood Pressure 111/53 L 98/52 L 106/54 L Pulse Oximetry 99 98 98 07/10/18 03:30 07/10/18 03:40 07/10/18 04:00 Temperature 98.0 F Pulse Rate 53 L 57 L 57 L Respiratory Rate 12 16 14 Blood Pressure 97/52 L Pulse Oximetry 97 94 L 95 07/10/18 04:01 07/10/18 04:30 07/10/18 04:31 Temperature Pulse Rate 57 L 58 L Respiratory Rate 14 12 Blood Pressure 125/58 L 107/56 L Pulse Oximetry 95 95 94 L 07/10/18 05:00 07/10/18 05:02 07/10/18 05:30 Temperature 96.9 F L Pulse Rate 59 L 58 L 55 L Respiratory Rate 12 12 12 Blood Pressure 121/57 L 104/58 L Pulse Oximetry 96 95 98 07/10/18 06:00 07/10/18 07:21 07/10/18 08:00 Temperature Pulse Rate 54 L 57 L Respiratory Rate 12 10 L Blood Pressure 108/54 L Pulse Oximetry 97 95 96 Intake & Output 07/09/18 07/10/18 07/10/18 18:59 06:59 18:59 Intake Total 889 / 889 670 / 670 Output Total 1750 / 1750 450 / 450 Balance -861 / -861 220 / 220 Weight 85.9 kg Intake: IV 350 / 350 200 / 200 Flexbumin 25% Inj 100 ML @ 60 100 / 100 200 / 200 mls/hr IV.SIG Q8H SHILPI Rx#: [id number] fentaNYL 10 mcg/mL Premix Drip 250 / 250 2,500 mcg In 250 ml @ 50 MCG/HR 5 mls/hr IV.SIG TITRATE PRN Rx #:[id number] Tube Feeding 419 / 419 410 / 410 Tube Irrigant 120 / 120 60 / 60 Output: Urine 0 / 0 Pleural Fluid 500 / 500 Hemodialysis Amount 1000 / 1000 Chest Tube Drainage 250 / 250 450 / 450 #1 Right Mid-Axillary Chest 250 / 250 450 / 450 Other: Date of Last Bowel Movement 07/09/18 07/10/18 07/10/18 # Bowel Movements 1 1 - Constitutional no acute distress - Routine HEENT Exam Head: Present: normocephalic, atraumatic Eye: Present: EOMI, PERRL, normal accommodation, conjunctivae pink ENT: Present: mucous membranes moist - Routine Neck Exam Present: supple, full ROM, trachea midline - Routine Respiratory Exam Present: patient mechanically ventilated, CTA bilaterally - Routine Cardiovascular Exam Present: RRR, S1, S2 - Routine Abdominal Exam Present: soft, normoactive bowel sounds - Routine Extremities Exam Present: pulses intact - Routine Neurological Exam Present: altered mental status - Urinary Catheter Management Straight Cath placed during this visit: yes, but has since been removed by the nurse Reason for continuing: Not indwelling catheter Insertion date: 07/07/18 Insertion time: 18:00 Removal date: 07/07/18 Removal time: 18:20 Assessment and Plan - Plan 1)VDRF 2)Right lung infiltrate. 3)B/L pleural effusion. 4)HTN 5)Acute on CKD 6)CLL 7)HTN 8)DM 9)Severe leucocytosis PLAN: Continue with cent support keep sats >92% Bronchodilators, ICU vent bundle SBT daily as miguel. Daily sedation vacation. Monitor neuro status. status post thoracentesis 06/25 right pigtail chest tube placement 07/06/2018. Exudative effusion by protein criteria likely 2nd diuretics. Fluid culture no growth. Monitor CT drainage ( drained 700ml in 24hrs) s/p US guided left thoracentesis 07/09 with removal 500ml pleural fluid ( transudative fluid) CXR today b/l airspace disease R>L. Cont Abx per ID ( Levaquin/Flagyl) monitor for signs of infections ( fever, WBC ) WBC is trending down. Follow up on fluid cx from 07/09. Monitor renal function. s/p HD with 1L fluid removal. GI/DVT prophylaxis-Heparin 5000 IU SQ q 12 hrs Continue treat plan
--- NOTE | 2018-07-10 11:05 | P.PNCC ---
Subjective Subjective Remarks/Hospital Course: This is a 72-year-old female. Admission 06/25/2008. Past medical history includes stage 0 CLL, asthma, diabetes, gout, hypertension and hypothyroidism. She initially presented to the hospital complaining of a several month history of progressive shortness of breath. This is associated orthopnea and difficulty ambulation. A dry nonproductive cough as well. No chest pain. On admission, patient was noted to have moderate ascites and a significant right pleural effusion. She received paracentesis on 06/25 5700 cc and on 06/28 5900 cc. She had a right-sided thoracentesis 1200 cc on 06/25. CT abdomen pelvis showed likely liver cirrhosis and moderate ascites. She also had a CT of the abdomen and pelvis which did not show any lymphadenopathy. She has not been febrile. She has had thoracentesis and they took out 1.2 L of fluid. 06/28 had an upper endoscopy. EGD revealed esophagitis, distal esophageal ulcer, portal hypertensive gastropathy. She started worsening renal failure and worsening leukocytosis. Due to the possibility of hepatorenal syndrome a TIPS was performed by IR 07/01. She has been on beta-ilana, diuretics and midodrine in the interim along with octreotide. Patient been pancultured which no growth today. Current levofloxacin and metronidazole. No obvious source of infection at the present time. The past couple nights patient is been in ICU. She is become more confused and will not keep her BiPAP on due to agitation. She is received 2 stenosis of lorazepam tonight. I was asked to see the patient due to worsening respiratory issues including tachypnea and altered mental status including unresponsive. PH is 7.35. PCO2 47. PO2 74. Base index -6. She is on a nonrebreather. She is intubated using 20 mg etomidate and 8.0 ET tube at 23 cm at lip. They were unable to pass an NG tube.. 07/07/18: Remains intubated sedated. Renal function is worsening creatinine close to 6 now. Remains anuric. Large right pleural effusion drained yesterday 1.4 L since pigtail chest tube placement. Currently sedated with fentanyl will wake up follows some commands 07/08/18: Patient remains intubated mildly sedated with fentanyl infusion. Remains anuric with worsening renal function. HD catheter was placed yesterday. Will initiate hemodialysis today per nephrology. Right chest tube with 700 mL output in the last 24 hours 07/09/18: Remains critical wearing ventilator support. Remains anuric hemodialysis started yesterday 2 L removed. Right pleural effusion improved with chest tube, left moderate large pleural effusion. Plan for thoracentesis and then start CPAP trials. 07/10: Patient remains intubated lightly sedated with fentanyl. Tolerate CPAP wakes up weakly following commands. Chest x-ray shows improved infiltrates. Right chest tube with 700 mL output in 24 hours. Left thoracentesis with 500 mL removed Objective Vital Signs / I&O: Vital Signs 07/09/18 11:08 07/09/18 11:31 07/09/18 11:48 Temperature Pulse Rate 50 L 48 L 48 L Respiratory Rate 18 12 14 Blood Pressure 89/50 L 98/53 L Pulse Oximetry 100 97 97 07/09/18 12:00 07/09/18 13:00 07/09/18 13:17 Temperature Pulse Rate 48 L 47 L 47 L Respiratory Rate 17 16 18 Blood Pressure 95/52 L Pulse Oximetry 97 98 99 07/09/18 13:30 07/09/18 13:35 07/09/18 13:43 Temperature Pulse Rate 46 L 46 L 47 L Respiratory Rate 15 17 18 Blood Pressure 77/47 L 73/44 L 74/47 L Pulse Oximetry 97 97 97 07/09/18 13:45 07/09/18 14:00 07/09/18 14:15 Temperature Pulse Rate 47 L 49 L 48 L Respiratory Rate 12 19 16 Blood Pressure 73/46 L 90/53 L 89/50 L Pulse Oximetry 98 98 99 07/09/18 14:30 07/09/18 14:40 07/09/18 14:46 Temperature Pulse Rate 49 L 49 L 50 L Respiratory Rate 13 18 17 Blood Pressure 87/53 L 93/51 L Pulse Oximetry 99 98 07/09/18 15:00 07/09/18 15:15 07/09/18 15:30 Temperature Pulse Rate 50 L 50 L 58 L Respiratory Rate 13 16 14 Blood Pressure 89/55 L 93/53 L 119/56 L Pulse Oximetry 99 99 99 07/09/18 15:32 07/09/18 15:41 07/09/18 16:00 Temperature 98.0 F Pulse Rate 56 L 59 L Respiratory Rate 14 12 8 L Blood Pressure 111/56 L 105/53 L Pulse Oximetry 99 99 100 07/09/18 16:30 07/09/18 17:00 07/09/18 17:30 Temperature Pulse Rate 63 54 L 51 L Respiratory Rate 9 L 10 L 18 Blood Pressure 109/55 L 101/57 L 97/53 L Pulse Oximetry 99 99 98 07/09/18 18:00 07/09/18 18:30 07/09/18 19:00 Temperature Pulse Rate 50 L 51 L 48 L Respiratory Rate 18 13 18 Blood Pressure 108/55 L 108/55 L 110/54 L Pulse Oximetry 98 98 99 07/09/18 19:30 07/09/18 19:39 07/09/18 19:56 Temperature Pulse Rate 45 L 51 L Respiratory Rate 11 L 11 L 12 Blood Pressure 96/52 L Pulse Oximetry 99 97 07/09/18 20:00 07/09/18 20:30 07/09/18 21:00 Temperature 97.7 F Pulse Rate 51 L 61 51 L Respiratory Rate 18 19 12 Blood Pressure 107/53 L 136/62 Pulse Oximetry 96 100 97 07/09/18 21:01 07/09/18 21:18 07/09/18 21:30 Temperature Pulse Rate 51 L 51 L 54 L Respiratory Rate 11 L 16 Blood Pressure 111/52 L 111/77 Pulse Oximetry 97 96 07/09/18 22:00 07/09/18 22:07 07/09/18 22:30 Temperature 96.6 F L Pulse Rate 55 L 54 L Respiratory Rate 12 12 Blood Pressure 121/56 L 101/54 L Pulse Oximetry 95 96 07/09/18 22:32 07/09/18 23:00 07/09/18 23:07 Temperature 96.9 F L 96.6 F L Pulse Rate 54 L Respiratory Rate 12 Blood Pressure 113/56 L Pulse Oximetry 95 07/09/18 23:26 07/09/18 23:30 07/09/18 23:44 Temperature 97.1 F L Pulse Rate 50 L 50 L Respiratory Rate 9 L 12 Blood Pressure 100/52 L Pulse Oximetry 98 98 07/10/18 00:00 07/10/18 00:31 07/10/18 00:37 Temperature 97.6 F Pulse Rate 50 L 54 L Respiratory Rate 13 12 Blood Pressure 95/54 L 120/59 L Pulse Oximetry 97 95 07/10/18 01:00 07/10/18 01:06 07/10/18 01:30 Temperature 97.7 F Pulse Rate 51 L 53 L Respiratory Rate 12 16 Blood Pressure 108/54 L 109/58 L Pulse Oximetry 98 98 07/10/18 01:35 07/10/18 02:00 07/10/18 02:30 Temperature 97.5 F L Pulse Rate 52 L 53 L Respiratory Rate 12 12 Blood Pressure 111/53 L 98/52 L Pulse Oximetry 99 98 07/10/18 03:00 07/10/18 03:30 07/10/18 03:40 Temperature Pulse Rate 54 L 53 L 57 L Respiratory Rate 12 12 16 Blood Pressure 106/54 L 97/52 L Pulse Oximetry 98 97 94 L 07/10/18 04:00 07/10/18 04:01 07/10/18 04:30 Temperature 98.0 F Pulse Rate 57 L 57 L 58 L Respiratory Rate 14 14 12 Blood Pressure 125/58 L 107/56 L Pulse Oximetry 95 95 95 07/10/18 04:31 07/10/18 05:00 07/10/18 05:02 Temperature Pulse Rate 59 L 58 L Respiratory Rate 12 12 Blood Pressure 121/57 L Pulse Oximetry 94 L 96 95 07/10/18 05:30 07/10/18 06:00 07/10/18 07:21 Temperature 96.9 F L Pulse Rate 55 L 54 L 57 L Respiratory Rate 12 12 10 L Blood Pressure 104/58 L 108/54 L Pulse Oximetry 98 97 95 07/10/18 08:00 Temperature Pulse Rate Respiratory Rate Blood Pressure Pulse Oximetry 96 Intake & Output 07/09/18 07/10/18 07/10/18 18:59 06:59 18:59 Intake Total 889 / 889 670 / 670 Output Total 1750 / 1750 450 / 450 Balance -861 / -861 220 / 220 Weight 85.9 kg Intake: IV 350 / 350 200 / 200 Flexbumin 25% Inj 100 ML @ 60 100 / 100 200 / 200 mls/hr IV.SIG Q8H SHILPI Rx#: [id number] fentaNYL 10 mcg/mL Premix Drip 250 / 250 2,500 mcg In 250 ml @ 50 MCG/HR 5 mls/hr IV.SIG TITRATE PRN Rx #:[id number] Tube Feeding 419 / 419 410 / 410 Tube Irrigant 120 / 120 60 / 60 Output: Urine 0 / 0 Pleural Fluid 500 / 500 Hemodialysis Amount 1000 / 1000 Chest Tube Drainage 250 / 250 450 / 450 #1 Right Mid-Axillary Chest 250 / 250 450 / 450 Other: Date of Last Bowel Movement 07/09/18 07/10/18 07/10/18 # Bowel Movements 1 1 Result Diagrams: 07/10/18 05:25 07/10/18 05:25 Objective Remarks: - Constitutional Lying in bed appears ill anuric - Routine HEENT Exam Head: Present: normocephalic, atraumatic Eye: Present: EOMI, PERRL ENT: Present: Orotracheally intubated - Routine Neck Exam Present: supple, full ROM. Absent: JVD Bandage from tips in right neck - Routine Respiratory Exam Present: patient mechanically ventilated, crackles, distant breath sounds, diminished air movement. Right pigtail catheter with approximately 700 mL output in 24 hours - Routine Cardiovascular Exam Present: RRR, S1, S2. Absent: murmur - Routine Abdominal Exam Present: soft, normoactive bowel sounds - Routine Skin Exam Present: intact, dry. Absent: cyanosis, erythema - Routine Neurological Exam Intubated sedated wakes up easily follows commands x4, but weakly. No focal deficits Assessment and Plan - Assessment and Plan Plan: Neuro/Psych: Acute encephalopathy likely secondary to CO2 retention-improving Currently on fentanyl for sedation/analgesia while intubated. Hold for weaning trial Goal of RASS -1. Daily sedation vacation Ammonia level <10 CT brain 06/25 revealed no acute intracranial findings On lightening sedation patient continues to follow commands intermittently CV: Essential hypertension Bradycardia Holding nadolol 20 mg daily hold due to bradycardia, continue midodrine 10 mg 3 times daily Hemodialysis started for fluid removal no response to IV Lasix Echocardiogram -EF 55-60%. Normal LV systolic function. Trace mitral valve regurgitation. Mitral annular calcification is present. Cannot rule out a small mobile echodensity on the left ventricular side of the anterior leaflet towards the left ventricular outflow tract in parasternal views. Clinical correlation recommended there is trace tricuspid valve regurgitation. The estimated pulmonary arterial pressure is 38 mmHg. Blood cultures have been negative Resp: Acute hypoxemic respiratory failure Right pleural effusion status post thoracentesis 06/25 -1200 cc, right pigtail chest tube placement 07/06/2018 PRVC ventilation. Head of bed at 30 degrees. Daily CPAP trials Ventilator bundle. Albuterol/ipratropium aerosols every 4 hours with albuterol every 2 hours as needed dyspnea Right pigtail chest tube placed 07/06/2018, with 1.4 L drained. 700 mL in last 24 hours output Status post left thoracentesis 07/09/2018 with 500 mL removed GI: Portal hypertensive gastropathy LA class B esophagitis Distal esophageal ulcer Ascites -paracentesis 5700 cc 06/25. 5900 cc 06/28 Status post TIPS 07/01 for possible hepatorenal syndrome CT abdomen/pelvis 06/25 revealed cirrhotic type liver. Left-sided hydronephrosis. Moderate ascites EGD 06/28 revealed LA class B esophagitis. 7 mm distal esophageal ulcer. Portal hypertensive gastropathy.H. pylori negative. Continue midodrine. On octreotide 50 mcg IV every 8 hours for portal hypertension gastropathy, HRS Pantoprazole 40 mg IV daily. Discontinued Aldactone due to worsening renal failure Being followed by GI. Negative CA-19-9, alpha-fetoprotein, beta-hCG. Negative hepatitis panel Endo: Diabetes mellitus Hypothyroidism Gout Sliding scale insulin Accu-Cheks to maintain euglycemia/low every 6 hours aspart insulin Holding glipizide 5 mg daily/home medication Patient is on levothyroxine 300 mcg daily. Patient is on allopurinol at home. Hold due to renal failure Renal: Acute kidney failure Monitor urine output. Accurate I's and O's. Hemodialysis catheter placed, started hemodialysis 07/08/2018 Madsen catheter be placed for accurate I's and O's in a critical patient Avoid nephrotoxic medication No hydronephrosis on CT abdomen/pelvis on admission Nephrology following Heme: CLL [id number] score 0 Leukocytosis Normocytic anemia Followed by Dr. Flores/oncology. Follow-up on coags, CBC this a.m. Currently no indication for transfusion of blood products at this time. ID: Followed by infectious disease. Currently levofloxacin and metronidazole Peritoneal and pleural fluid 06/25 no growth today. Pleural fluid no growth to date F/U blood cultures x2, sputum, UA and influenza a and B now Access-utilize peripheral IV. Central line if indicated Prophylaxis -GI -pantoprazole -DVT -SCDs/heparin subcu Consult 35 minutes critical care time
[2018-07-10] MEDS: Allopurinol 100 MG Tablet PO SCH (11:15)
[2018-07-10] MEDS: Chlorhexidine 0.12% Oral Kit 15 ML UDC OROPHARYNG SCH ×2 (11:15→19:27)
--- NOTE | 2018-07-10 11:28 | P.PNID ---
Subjective Remarks: ID coverage: Patient is a 72-year-old female presented to the hospital complaining of shortness of breath. She has had problem with shortness of breath over the last several months, but it has progressively worsened that she has difficulty ambulating. She gets orthopnea. She occasionally has cough but no phlegm. Denies any chest pain. She admits to some intermittent low-grade fevers. It was also noted that her abdomen has been more distended. On evaluation she was found to have pleural effusions as well as ascites and liver cirrhosis on ultrasound. She also had a CT of the abdomen and pelvis which did not show any lymphadenopathy. She has not been febrile. She has had thoracentesis and they took out 1.2 L of fluid. Paracentesis and they took out 5.7 L of ascites. Since admission she has had leukocytosis of 20,000 and higher. 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 She has not required any treatment for her CLL. Patient had upper endoscopy. She has had some diarrhea. She is noted increased abdominal girth again. Patient also has had increasing creatinine, and her urine output has been decreasing. Stool for C. difficile is negative. I do not have a urinalysis. Her initial chest x-ray on admission showing a right base infiltrate and effusion. Her last chest x-ray after she has had thoracenteses showed hypoaeration, with no infiltrates seen. Patient has been on Rocephin since admission. Infectious disease consultation has been requested to assist with evaluation and treatment of leukocytosis. Patient opens eyes to commands. Currently on CPAP. Thoracentesis yesterday. Plan on extubating today. Afebrile. No significant overnight events. CBC remained elevated. Pigtail cath placed on her R chest Had TIPS procedure 07/01 Antibiotics: Levaquin Flagyl Lines: LIJ vascath PIV Past Medical History: Asthma Diabetes Gout Hypertension Leukemia H/O foot surgery H/O thyroidectomy Allergies/Adverse Reactions: Allergies No Known Allergies Allergy (Verified 06/25/18 05:25) Objective Vital Signs 07/09/18 11:31 07/09/18 11:48 07/09/18 12:00 Temperature Pulse Rate 48 L 48 L 48 L Respiratory Rate 12 14 17 Blood Pressure 89/50 L 98/53 L Pulse Oximetry 97 97 97 07/09/18 13:00 07/09/18 13:17 07/09/18 13:30 Temperature Pulse Rate 47 L 47 L 46 L Respiratory Rate 16 18 15 Blood Pressure 95/52 L 77/47 L Pulse Oximetry 98 99 97 07/09/18 13:35 07/09/18 13:43 07/09/18 13:45 Temperature Pulse Rate 46 L 47 L 47 L Respiratory Rate 17 18 12 Blood Pressure 73/44 L 74/47 L 73/46 L Pulse Oximetry 97 97 98 07/09/18 14:00 07/09/18 14:15 07/09/18 14:30 Temperature Pulse Rate 49 L 48 L 49 L Respiratory Rate 19 16 13 Blood Pressure 90/53 L 89/50 L 87/53 L Pulse Oximetry 98 99 99 07/09/18 14:40 07/09/18 14:46 07/09/18 15:00 Temperature Pulse Rate 49 L 50 L 50 L Respiratory Rate 18 17 13 Blood Pressure 93/51 L 89/55 L Pulse Oximetry 98 99 07/09/18 15:15 07/09/18 15:30 07/09/18 15:32 Temperature Pulse Rate 50 L 58 L 56 L Respiratory Rate 16 14 14 Blood Pressure 93/53 L 119/56 L 111/56 L Pulse Oximetry 99 99 99 07/09/18 15:41 07/09/18 16:00 07/09/18 16:30 Temperature 98.0 F Pulse Rate 59 L 63 Respiratory Rate 12 8 L 9 L Blood Pressure 105/53 L 109/55 L Pulse Oximetry 99 100 99 07/09/18 17:00 07/09/18 17:30 07/09/18 18:00 Temperature Pulse Rate 54 L 51 L 50 L Respiratory Rate 10 L 18 18 Blood Pressure 101/57 L 97/53 L 108/55 L Pulse Oximetry 99 98 98 07/09/18 18:30 07/09/18 19:00 07/09/18 19:30 Temperature Pulse Rate 51 L 48 L 45 L Respiratory Rate 13 18 11 L Blood Pressure 108/55 L 110/54 L 96/52 L Pulse Oximetry 98 99 99 07/09/18 19:39 07/09/18 19:56 07/09/18 20:00 Temperature 97.7 F Pulse Rate 51 L 51 L Respiratory Rate 11 L 12 18 Blood Pressure 107/53 L Pulse Oximetry 97 96 07/09/18 20:30 07/09/18 21:00 07/09/18 21:01 Temperature Pulse Rate 61 51 L 51 L Respiratory Rate 19 12 11 L Blood Pressure 136/62 111/52 L Pulse Oximetry 100 97 97 07/09/18 21:18 07/09/18 21:30 07/09/18 22:00 Temperature Pulse Rate 51 L 54 L 55 L Respiratory Rate 16 12 Blood Pressure 111/77 121/56 L Pulse Oximetry 96 95 07/09/18 22:07 07/09/18 22:30 07/09/18 22:32 Temperature 96.6 F L 96.9 F L Pulse Rate 54 L Respiratory Rate 12 Blood Pressure 101/54 L Pulse Oximetry 96 07/09/18 23:00 07/09/18 23:07 07/09/18 23:26 Temperature 96.6 F L Pulse Rate 54 L 50 L Respiratory Rate 12 9 L Blood Pressure 113/56 L Pulse Oximetry 95 98 07/09/18 23:30 07/09/18 23:44 07/10/18 00:00 Temperature 97.1 F L Pulse Rate 50 L 50 L Respiratory Rate 12 13 Blood Pressure 100/52 L 95/54 L Pulse Oximetry 98 97 07/10/18 00:31 07/10/18 00:37 07/10/18 01:00 Temperature 97.6 F Pulse Rate 54 L 51 L Respiratory Rate 12 12 Blood Pressure 120/59 L 108/54 L Pulse Oximetry 95 98 07/10/18 01:06 07/10/18 01:30 07/10/18 01:35 Temperature 97.7 F 97.5 F L Pulse Rate 53 L Respiratory Rate 16 Blood Pressure 109/58 L Pulse Oximetry 98 07/10/18 02:00 07/10/18 02:30 07/10/18 03:00 Temperature Pulse Rate 52 L 53 L 54 L Respiratory Rate 12 12 12 Blood Pressure 111/53 L 98/52 L 106/54 L Pulse Oximetry 99 98 98 07/10/18 03:30 07/10/18 03:40 07/10/18 04:00 Temperature 98.0 F Pulse Rate 53 L 57 L 57 L Respiratory Rate 12 16 14 Blood Pressure 97/52 L Pulse Oximetry 97 94 L 95 07/10/18 04:01 07/10/18 04:30 07/10/18 04:31 Temperature Pulse Rate 57 L 58 L Respiratory Rate 14 12 Blood Pressure 125/58 L 107/56 L Pulse Oximetry 95 95 94 L 07/10/18 05:00 07/10/18 05:02 07/10/18 05:30 Temperature 96.9 F L Pulse Rate 59 L 58 L 55 L Respiratory Rate 12 12 12 Blood Pressure 121/57 L 104/58 L Pulse Oximetry 96 95 98 07/10/18 06:00 07/10/18 07:21 07/10/18 08:00 Temperature Pulse Rate 54 L 57 L Respiratory Rate 12 10 L Blood Pressure 108/54 L Pulse Oximetry 97 95 96 Intake & Output 07/09/18 07/10/18 07/10/18 18:59 06:59 18:59 Intake Total 889 / 889 670 / 670 Output Total 1750 / 1750 450 / 450 Balance -861 / -861 220 / 220 Weight 85.9 kg Intake: IV 350 / 350 200 / 200 Flexbumin 25% Inj 100 ML @ 60 100 / 100 200 / 200 mls/hr IV.SIG Q8H SHILPI Rx#: [id number] fentaNYL 10 mcg/mL Premix Drip 250 / 250 2,500 mcg In 250 ml @ 50 MCG/HR 5 mls/hr IV.SIG TITRATE PRN Rx #:[id number] Tube Feeding 419 / 419 410 / 410 Tube Irrigant 120 / 120 60 / 60 Output: Urine 0 / 0 Pleural Fluid 500 / 500 Hemodialysis Amount 1000 / 1000 Chest Tube Drainage 250 / 250 450 / 450 #1 Right Mid-Axillary Chest 250 / 250 450 / 450 Other: Date of Last Bowel Movement 07/09/18 07/10/18 07/10/18 # Bowel Movements 1 1 07/06/18 05:15 Blood - Peripheral Aerobic Blood Culture - Preliminary No growth in 4 days 07/06/18 05:15 Blood - Peripheral Anaerobic Blood Culture - Preliminary No growth in 4 days 07/06/18 05:20 Blood - Peripheral Aerobic Blood Culture - Preliminary No growth in 4 days 07/06/18 05:20 Blood - Peripheral Anaerobic Blood Culture - Preliminary No growth in 4 days 07/09/18 11:20 Fluid - Pleural fluid Gram Stain - Final 07/09/18 11:20 Fluid - Pleural fluid Body Fluid Culture - Pending 06/25/18 19:15 Fluid - Pleural fluid Fungal Smear - Final No fungal elements seen 06/25/18 19:15 Fluid - Pleural fluid Fungal Culture - Preliminary No growth in 2 weeks 06/25/18 17:15 Abscess - Chest Acid Fast Bacilli Smear - Final No acid fast bacilli seen 06/25/18 17:15 Abscess - Chest Mycobacterial Culture - Preliminary No growth in 2 weeks 06/25/18 17:45 Fluid - Peritoneal fluid Fungal Smear - Final No fungal elements seen 06/25/18 17:45 Fluid - Peritoneal fluid Fungal Culture - Preliminary No growth in 2 weeks 06/25/18 17:45 Fluid - Peritoneal fluid Acid Fast Bacilli Smear - Final No acid fast bacilli seen 06/25/18 17:45 Fluid - Peritoneal fluid Mycobacterial Culture - Preliminary No growth in 2 weeks 07/07/18 18:30 Catheterized Urine Urine Culture - Final No growth in 48 hours 07/06/18 15:15 Fluid - Pleural fluid Gram Stain - Final 07/06/18 15:15 Fluid - Pleural fluid Body Fluid Culture - Final No growth in 72 hours (aerobically and anaerobically ) 07/06/18 15:15 Fluid - Pleural fluid Acid Fast Bacilli Smear - Final No acid fast bacilli seen 07/06/18 15:15 Fluid - Pleural fluid Mycobacterial Culture - Pending 07/06/18 11:50 Sputum - Endotracheal Gram Stain - Final 07/06/18 11:50 Sputum - Endotracheal Sputum Culture - Final Moderate growth normal respiratory yaneth 07/06/18 15:15 Fluid - Pleural fluid Fungal Smear - Final No fungal elements seen 07/06/18 15:15 Fluid - Pleural fluid Fungal Culture - Pending Lab - Hematology Results 07/08/18 07/09/18 07/10/18 10:27 04:34 05:25 WBC 49.4 H 32.0 H RBC 2.98 L 2.78 L Hgb 9.1 L 8.5 L Hct 28.5 L 26.2 L MCV 95.6 94.4 MCH 30.6 30.5 MCHC 32.0 32.3 RDW 17.4 H 17.6 H Plt Count 117 L 96 L MPV 8.8 8.6 WBC Differential Manual diff final Seg Neuts % (Manual) 19 Lymphocytes % (Manual) 71 H Monocytes % (Manual) 4 Eosinophils % (Manual) 5 H Basophils % (Manual) 1 Abs Neuts (Manual) 9.4 H Smudge Cells Present H Platelet Estimate Low L Platelet Morphology Normal Ovalocytes 1+ H Raz Cells 1+ H Lab - Chemistry Results 07/08/18 07/08/18 07/08/18 10:27 12:38 16:51 Sodium 141 Potassium 4.5 Chloride 110 H Carbon Dioxide 17.9 L Anion Gap 13 BUN 94 H Creatinine 5.79 H Estimated GFR 7 L POC Glucose 110 139 H Random Glucose 135 H Calcium 8.4 L Phosphorus 4.1 Magnesium 1.8 Total Bilirubin AST ALT Alkaline Phosphatase Total Protein Albumin 07/08/18 07/09/18 07/09/18 23:17 04:34 06:13 Sodium 141 Potassium 4.2 Chloride 107 Carbon Dioxide 19.3 L Anion Gap 15 BUN 76 H Creatinine 5.27 H Estimated GFR 8 L POC Glucose 165 H 199 H Random Glucose 194 H Calcium 8.4 L Phosphorus Magnesium 1.9 Total Bilirubin 3.3 H AST 77 H ALT 25 Alkaline Phosphatase 144 H Total Protein 6.2 L Albumin 4.7 07/09/18 07/09/18 07/10/18 18:43 23:02 04:57 Sodium Potassium Chloride Carbon Dioxide Anion Gap BUN Creatinine Estimated GFR POC Glucose 163 H 175 H 189 H Random Glucose Calcium Phosphorus Magnesium Total Bilirubin AST ALT Alkaline Phosphatase Total Protein Albumin 07/10/18 05:25 Sodium 143 Potassium 3.6 Chloride 106 Carbon Dioxide 24.4 Anion Gap 13 BUN 54 H Creatinine 4.31 H Estimated GFR 10 L POC Glucose Random Glucose 190 H Calcium 8.4 L Phosphorus 3.2 Magnesium 2.0 Total Bilirubin 2.9 H AST 43 H ALT 18 Alkaline Phosphatase 101 Total Protein 6.3 L Albumin 4.7 Imaging: ITS Impressions Abdomen Ultrasound 06/25/18 00:00 CONCLUSION: 1. Moderate ascites 2. Hepatic cirrhosis Abdomen/Pelvis CT 06/25/18 00:00 CONCLUSION: 1. Suspected cirrhotic liver. 2. Mild to moderate amount of ascites. 3. Bilateral pleural effusions being mild on the right and minimal on the left. 4. Increased density at the inferior right middle lobe and right lower lobe likely related to consolidation or atelectasis. 5. Anasarca 6. Tiny nonobstructing left renal stone. Chest Ultrasound 06/25/18 00:00 CONCLUSION: 1. Large right pleural effusion without appreciable loculation. Thoracentesis Ultrasound 06/25/18 00:00 CONCLUSION: 1. Uncomplicated right thoracentesis. Head CT 06/25/18 06:47 CONCLUSION: 1. Stable evaluation of the head. 2. No evidence of acute infarct, hemorrhage, mass or edema. . Paracentesis Ultrasound 06/29/18 00:00 CONCLUSION: 1. Uncomplicated paracentesis. TIPS 07/01/18 00:00 CONCLUSION: 1. Uncomplicated fluoroscopic guided placement of TIPS shunts from the right hepatic vein to the right portal vein, as above. PLAN: Baseline ultrasound examination in 2 weeks with surveillance ultrasound at 3 months, 6 months and one year. Abdomen X-Ray 07/06/18 11:06 CONCLUSION: Dobbhoff tube tip is noted within the expected region of the distal stomach. Chest X-Ray 07/10/18 06:00 CONCLUSION: Tube and catheters in good position. Bilateral airspace disease most prominently in the right lung base Physical Exam: GENERAL: On the ventilator. No distress. SKIN: Cool and dry. No generalized rash. HEAD: Atraumatic. Normocephalic. No temporal wasting, or tenderness. EYES: [place] conjunctiva. No petechia or hemorrhage. Has scleral icterus. No injection or drainage. EARS, NOSE AND THROAT: Orally intubated NECK: Ecchymoses R side where they had venipunture for TIPS CARDIOVASCULAR: Regular rate and rhythm. No murmurs, rubs or gallops heard RESPIRATORY: Bibasilar rhonchi. Cath R side with serous fluid ABDOMEN: Globular, soft, mildly distended, no reaction to palpation. Bowel sounds present and normoactive. EXTREMITIES: No clubbing, cyanosis. Has mild pedal edema. No calf tenderness. NEUROLOGICAL: Sedated PSYCHIATRIC: Unable to assess LINE: No evidence of infection Assessment and Plan - Plan Impression Leukocytosis, etiology? - ?reactive, up again - no obvious source of infection - CXR with infiltrates, sputum NF - UA ok - BC negative - pleural fluid negative - has new vascath, no other central line - C diff negative - ?part of her CLL, has lymphocyte predominance on manual diff Bilateral infiltrates - CHF likely, or ARDS Respiratory failure Eligio effusions and ascites, etiology? Known CLL, stage 0 Ascites, has liver cirrhosis on imaging - S/P TIPS Chest pain, ?etiology - ?related to TIPS Renal failure. Recommendation Monitor CBC Continue Levaquin and Flagyl. Palliative medicine following Follow cultures. Monitor progress
--- NOTE | 2018-07-10 11:51 | P.PNNP ---
Subjective Interval history: Remains intubated Physical Exam Vital signs: Vital Signs 07/09/18 12:00 07/09/18 13:00 07/09/18 13:17 Temperature Pulse Rate 48 L 47 L 47 L Respiratory Rate 17 16 18 Blood Pressure 95/52 L Pulse Oximetry 97 98 99 07/09/18 13:30 07/09/18 13:35 07/09/18 13:43 Temperature Pulse Rate 46 L 46 L 47 L Respiratory Rate 15 17 18 Blood Pressure 77/47 L 73/44 L 74/47 L Pulse Oximetry 97 97 97 07/09/18 13:45 07/09/18 14:00 07/09/18 14:15 Temperature Pulse Rate 47 L 49 L 48 L Respiratory Rate 12 19 16 Blood Pressure 73/46 L 90/53 L 89/50 L Pulse Oximetry 98 98 99 07/09/18 14:30 07/09/18 14:40 07/09/18 14:46 Temperature Pulse Rate 49 L 49 L 50 L Respiratory Rate 13 18 17 Blood Pressure 87/53 L 93/51 L Pulse Oximetry 99 98 07/09/18 15:00 07/09/18 15:15 07/09/18 15:30 Temperature Pulse Rate 50 L 50 L 58 L Respiratory Rate 13 16 14 Blood Pressure 89/55 L 93/53 L 119/56 L Pulse Oximetry 99 99 99 07/09/18 15:32 07/09/18 15:41 07/09/18 16:00 Temperature 98.0 F Pulse Rate 56 L 59 L Respiratory Rate 14 12 8 L Blood Pressure 111/56 L 105/53 L Pulse Oximetry 99 99 100 07/09/18 16:30 07/09/18 17:00 07/09/18 17:30 Temperature Pulse Rate 63 54 L 51 L Respiratory Rate 9 L 10 L 18 Blood Pressure 109/55 L 101/57 L 97/53 L Pulse Oximetry 99 99 98 07/09/18 18:00 07/09/18 18:30 07/09/18 19:00 Temperature Pulse Rate 50 L 51 L 48 L Respiratory Rate 18 13 18 Blood Pressure 108/55 L 108/55 L 110/54 L Pulse Oximetry 98 98 99 07/09/18 19:30 07/09/18 19:39 07/09/18 19:56 Temperature Pulse Rate 45 L 51 L Respiratory Rate 11 L 11 L 12 Blood Pressure 96/52 L Pulse Oximetry 99 97 07/09/18 20:00 07/09/18 20:30 07/09/18 21:00 Temperature 97.7 F Pulse Rate 51 L 61 51 L Respiratory Rate 18 19 12 Blood Pressure 107/53 L 136/62 Pulse Oximetry 96 100 97 07/09/18 21:01 07/09/18 21:18 07/09/18 21:30 Temperature Pulse Rate 51 L 51 L 54 L Respiratory Rate 11 L 16 Blood Pressure 111/52 L 111/77 Pulse Oximetry 97 96 07/09/18 22:00 07/09/18 22:07 07/09/18 22:30 Temperature 96.6 F L Pulse Rate 55 L 54 L Respiratory Rate 12 12 Blood Pressure 121/56 L 101/54 L Pulse Oximetry 95 96 07/09/18 22:32 07/09/18 23:00 07/09/18 23:07 Temperature 96.9 F L 96.6 F L Pulse Rate 54 L Respiratory Rate 12 Blood Pressure 113/56 L Pulse Oximetry 95 07/09/18 23:26 07/09/18 23:30 07/09/18 23:44 Temperature 97.1 F L Pulse Rate 50 L 50 L Respiratory Rate 9 L 12 Blood Pressure 100/52 L Pulse Oximetry 98 98 07/10/18 00:00 07/10/18 00:31 07/10/18 00:37 Temperature 97.6 F Pulse Rate 50 L 54 L Respiratory Rate 13 12 Blood Pressure 95/54 L 120/59 L Pulse Oximetry 97 95 07/10/18 01:00 07/10/18 01:06 07/10/18 01:30 Temperature 97.7 F Pulse Rate 51 L 53 L Respiratory Rate 12 16 Blood Pressure 108/54 L 109/58 L Pulse Oximetry 98 98 07/10/18 01:35 07/10/18 02:00 07/10/18 02:30 Temperature 97.5 F L Pulse Rate 52 L 53 L Respiratory Rate 12 12 Blood Pressure 111/53 L 98/52 L Pulse Oximetry 99 98 07/10/18 03:00 07/10/18 03:30 07/10/18 03:40 Temperature Pulse Rate 54 L 53 L 57 L Respiratory Rate 12 12 16 Blood Pressure 106/54 L 97/52 L Pulse Oximetry 98 97 94 L 07/10/18 04:00 07/10/18 04:01 07/10/18 04:30 Temperature 98.0 F Pulse Rate 57 L 57 L 58 L Respiratory Rate 14 14 12 Blood Pressure 125/58 L 107/56 L Pulse Oximetry 95 95 95 07/10/18 04:31 07/10/18 05:00 07/10/18 05:02 Temperature Pulse Rate 59 L 58 L Respiratory Rate 12 12 Blood Pressure 121/57 L Pulse Oximetry 94 L 96 95 07/10/18 05:30 07/10/18 06:00 07/10/18 07:21 Temperature 96.9 F L Pulse Rate 55 L 54 L 57 L Respiratory Rate 12 12 10 L Blood Pressure 104/58 L 108/54 L Pulse Oximetry 98 97 95 07/10/18 08:00 07/10/18 11:24 Temperature Pulse Rate Respiratory Rate 8 L Blood Pressure Pulse Oximetry 96 95 Intake & Output 07/09/18 07/10/18 07/10/18 18:59 06:59 18:59 Intake Total 889 / 889 670 / 670 Output Total 1750 / 1750 450 / 450 Balance -861 / -861 220 / 220 Weight 85.9 kg Intake: IV 350 / 350 200 / 200 Flexbumin 25% Inj 100 ML @ 60 100 / 100 200 / 200 mls/hr IV.SIG Q8H SHILPI Rx#: [id number] fentaNYL 10 mcg/mL Premix Drip 250 / 250 2,500 mcg In 250 ml @ 50 MCG/HR 5 mls/hr IV.SIG TITRATE PRN Rx #:[id number] Tube Feeding 419 / 419 410 / 410 Tube Irrigant 120 / 120 60 / 60 Output: Urine 0 / 0 Pleural Fluid 500 / 500 Hemodialysis Amount 1000 / 1000 Chest Tube Drainage 250 / 250 450 / 450 #1 Right Mid-Axillary Chest 250 / 250 450 / 450 Other: Date of Last Bowel Movement 07/09/18 07/10/18 07/10/18 # Bowel Movements 1 1 - Constitutional no acute distress - Routine HEENT Exam Head: Present: normocephalic ENT: Present: mucous membranes moist - Routine Neck Exam Present: supple - Routine Respiratory Exam Present: patient mechanically ventilated, decreased breath sounds - Routine Cardiovascular Exam Present: RRR - Routine Abdominal Exam Present: soft - Routine Extremities Exam Present: edema - Routine Skin Exam Present: intact - Routine Neurological Exam Present: altered mental status - Detailed Neurological Exam: Coma Scale Eye Opening: None Verbal Response: None - Routine Psychiatric Exam Present: unable to assess - Urinary Catheter Management Straight Cath placed during this visit: yes, but has since been removed by the nurse Reason for continuing: Not indwelling catheter Insertion date: 07/07/18 Insertion time: 18:00 Removal date: 07/07/18 Removal time: 18:20 Assessment and Plan - Assessment (1) Acute on chronic kidney failure Code(s): N17.9 - Acute kidney failure, unspecified; N18.9 - Chronic kidney disease, unspecified Status: Acute Plan: Patient has chronic kidney disease and possibly has ATN. 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 Patient is not a good candidate for dialysis, patient and family previously informed. HD initiated Wednesday with 2L UF HD done again yesterday with only 1L UF achieved (hypotension) Will do HD again Wednesday with UF as tolerated. Poor overall prognosis. Follow labs and UOP - anuric now. (2) Diabetes Code(s): E11.9 - Type 2 diabetes mellitus without complications Status: Acute Plan: Insulin coverage to maintain glucose levels between 140 and 180. (3) Abdominal distension Code(s): R14.0 - Abdominal distension (gaseous) Status: Acute Plan: s/p paracentesis x2. - Plan S/P TIPS procedure 07/01/18
[2018-07-10] MEDS: Nadolol 20 MG Tablet PO SCH (19:13)
[2018-07-10] MEDS: Mirtazapine 15 MG Tablet PO SCH (20:47)
[2018-07-11] MEDS: Albumin Human 25% Inj 100 ML IV.SIG SCH ×3 (03:35→18:08)
[2018-07-11] MEDS: Oral Hygiene Kit OROPHARYNG SCH ×4 (03:36→23:32)
--- NOTE | 2018-07-11 04:06 | XR ---
EXAM DATE: 07/11/2018 3:46 AM EST AGE/SEX: 72 years / Female INDICATIONS: Shortness of breath, possible pulmonary disease. CLINICAL DATA: This is the patient's subsequent encounter. Patient reports that signs and symptoms h ave been present for 1 week and indicates a pain score of Nonresponsive. MEDICAL/SURGICAL HISTORY: Asthma. Diabetes. Hypertension. . Thyroidectomy. COMPARISON: C, CHEST 1V SINGLE AP, 07/10/2018. . FINDINGS: Stable ETT, left IJ central line, and feeding tube coursing beyond the GE junction with tip omitted f rom the image. There is a stable inferior right-sided chest tube in place with improved patchy airspa ce disease in the right lower lung zone. Persistent mild airspace disease in the left lower lung zone . No significant pneumothorax. Cardiomediastinal contours are stable. Remainder of the exam is unchan ged. CONCLUSION: 1. Stable tubes and lines, as above. 2. Stable right-sided chest tube without pneumothorax. 3. Slightly improved patchy airspace disease in the right lower lung zone. 4. Persistent left lower lung zone airspace disease. Electronically signed by: Lambert Aponte MD Board Certified Radiologist 07/11/2018 4:05 AM ADRIENNE Salazar
[2018-07-11] MEDS: Pantoprazole Inj 40 MG Vial IV.PUSH SCH (04:48)
[2018-07-11] MEDS: Artificial Tears Opth Drops 15 ML Bottle EACH EYE SCH ×3 (04:48→20:08)
[2018-07-11] MEDS: Octreotide Inj 50 MCG/ML Vial IV.PUSH SCH ×3 (05:22→21:28)
[2018-07-11] MEDS: Insulin NovoLOG Aspart Correctional Sugar Inj SQ SCH ×4 (05:28→23:31)
[2018-07-11] MEDS: Levothyroxine 150 MCG Tablet PO SCH (06:05)
[2018-07-11 06:30] LABS: Hematocrit 27.1 % (35.0-46.0); Hemoglobin 8.8 gm/dL (11.6-15.3); Mean Corpuscular HGB Conc 32.5 % (32.0-36.0); Mean Corpuscular Hemoglobin 30.4 pg (27.0-34.0); Mean Corpuscular Volume 93.6 fL (80.0-100.0); Mean Platelet Volume 8.6 fL (7.0-11.0); Platelet Count 91 th/mm3 (150-450); Red Blood Count 2.89 mil/mm3 (4.00-5.30); Red Cell Distribution Width 19.2 % (11.6-17.2); White Blood Count 36.4 th/mm3 (4.0-11.0)
[2018-07-11 07:08] LABS: Alanine Aminotransferase 16 U/L (10-53); Albumin 4.8 g/dL (3.4-5.0); Alkaline Phosphatase 293 U/L (45-117); Anion Gap 17 meq/L (5-15); Aspartate Aminotransferase 53 U/L (15-37); Blood Urea Nitrogen 67 mg/dL (7-18); Calcium 9.1 mg/dL (8.5-10.1); Carbon Dioxide 21.3 meq/L (21.0-32.0); Chloride 105 meq/L (98-107); Glomerular Filtration Rate 8 mL/min (>89); Glucose,Random 206 mg/dL (74-106); Phosphorus 3.6 mg/dL (2.5-4.9); Potassium 3.6 meq/L (3.5-5.1); Sodium 143 meq/L (136-145); Total Protein 6.3 g/dL (6.4-8.2)
--- NOTE | 2018-07-11 07:54 | P.PNCC ---
Subjective Subjective Remarks/Hospital Course: This is a 72-year-old female. Admission 06/25/2008. Past medical history includes stage 0 CLL, asthma, diabetes, gout, hypertension and hypothyroidism. She initially presented to the hospital complaining of a several month history of progressive shortness of breath. This is associated orthopnea and difficulty ambulation. A dry nonproductive cough as well. No chest pain. On admission, patient was noted to have moderate ascites and a significant right pleural effusion. She received paracentesis on 06/25 5700 cc and on 06/28 5900 cc. She had a right-sided thoracentesis 1200 cc on 06/25. CT abdomen pelvis showed likely liver cirrhosis and moderate ascites. She also had a CT of the abdomen and pelvis which did not show any lymphadenopathy. She has not been febrile. She has had thoracentesis and they took out 1.2 L of fluid. 06/28 had an upper endoscopy. EGD revealed esophagitis, distal esophageal ulcer, portal hypertensive gastropathy. She started worsening renal failure and worsening leukocytosis. Due to the possibility of hepatorenal syndrome a TIPS was performed by IR 07/01. She has been on beta-ilana, diuretics and midodrine in the interim along with octreotide. Patient been pancultured which no growth today. Current levofloxacin and metronidazole. No obvious source of infection at the present time. The past couple nights patient is been in ICU. She is become more confused and will not keep her BiPAP on due to agitation. She is received 2 stenosis of lorazepam tonight. I was asked to see the patient due to worsening respiratory issues including tachypnea and altered mental status including unresponsive. PH is 7.35. PCO2 47. PO2 74. Base index -6. She is on a nonrebreather. She is intubated using 20 mg etomidate and 8.0 ET tube at 23 cm at lip. They were unable to pass an NG tube.. 07/07/18: Remains intubated sedated. Renal function is worsening creatinine close to 6 now. Remains anuric. Large right pleural effusion drained yesterday 1.4 L since pigtail chest tube placement. Currently sedated with fentanyl will wake up follows some commands 07/08/18: Patient remains intubated mildly sedated with fentanyl infusion. Remains anuric with worsening renal function. HD catheter was placed yesterday. Will initiate hemodialysis today per nephrology. Right chest tube with 700 mL output in the last 24 hours 07/09/18: Remains critical wearing ventilator support. Remains anuric hemodialysis started yesterday 2 L removed. Right pleural effusion improved with chest tube, left moderate large pleural effusion. Plan for thoracentesis and then start CPAP trials. 07/10: Patient remains intubated lightly sedated with fentanyl. Tolerate CPAP wakes up weakly following commands. Chest x-ray shows improved infiltrates. Right chest tube with 700 mL output in 24 hours. Left thoracentesis with 500 mL removed 07/11: Remains lethargic encephalopathy intermittently following commands. Oxygen requirement increased to 50% due to hypoxia. Tired out on CPAP at night. Plan for hemodialysis today attempt CPAP after hemodialysis today. WBC count trending up creatinine remains more than 5. Remains anuric Objective Vital Signs / I&O: Vital Signs 07/10/18 08:00 07/10/18 08:30 07/10/18 09:00 Temperature 98.7 F Pulse Rate 57 L 56 L 55 L Respiratory Rate 7 L 8 L 3 L Blood Pressure 111/53 L 112/52 L Pulse Oximetry 96 96 96 07/10/18 09:19 07/10/18 09:30 07/10/18 10:00 Temperature Pulse Rate 55 L 55 L 56 L Respiratory Rate 15 7 L 7 L Blood Pressure 95/54 L 96/53 L 92/54 L Pulse Oximetry 96 95 94 L 07/10/18 10:30 07/10/18 11:00 07/10/18 11:24 Temperature Pulse Rate 59 L 67 Respiratory Rate 8 L 17 8 L Blood Pressure 102/51 L Pulse Oximetry 95 92 L 95 07/10/18 11:34 07/10/18 12:00 07/10/18 12:30 Temperature 98.1 F Pulse Rate 60 58 L 58 L Respiratory Rate 8 L 8 L 7 L Blood Pressure 114/56 L 105/51 L 114/56 L Pulse Oximetry 95 97 97 07/10/18 13:00 07/10/18 13:30 07/10/18 14:00 Temperature Pulse Rate 57 L 66 66 Respiratory Rate 8 L 17 17 Blood Pressure 115/58 L 126/58 L 143/66 H Pulse Oximetry 98 92 L 93 L 07/10/18 15:18 07/10/18 16:00 07/10/18 19:37 Temperature 99.0 F Pulse Rate 64 72 Respiratory Rate 17 11 L 23 Blood Pressure 142/62 H Pulse Oximetry 95 96 95 07/10/18 20:00 07/10/18 23:30 07/11/18 00:00 Temperature 98.5 F 97.5 F L Pulse Rate 71 72 Respiratory Rate 29 H 19 18 Blood Pressure 134/63 114/58 L Pulse Oximetry 94 L 93 L 94 L 07/11/18 03:55 07/11/18 04:00 Temperature 98.7 F Pulse Rate 63 Respiratory Rate 18 18 Blood Pressure 95/55 L Pulse Oximetry 94 L 95 Intake & Output 07/10/18 07/11/18 07/11/18 18:59 06:59 18:59 Intake Total 497 / 497 Output Total 790 / 790 Balance -293 / -293 Weight 87.5 kg Intake: IV 300 / 300 Flexbumin 25% Inj 100 ML @ 60 300 / 300 mls/hr IV.SIG Q8H [facility] Rx#: [id number] Tube Feeding 197 / 197 Output: Chest Tube Drainage 790 / 790 #1 Right Mid-Axillary Chest 790 / 790 Other: Date of Last Bowel Movement 07/10/18 07/10/18 # Incontinent Bowel Movements 5 Result Diagrams: 07/11/18 04:59 07/11/18 04:59 Objective Remarks: - Constitutional Lying in bed critically ill anuric, hypoxemic requiring more FiO2 - Routine HEENT Exam Head: Present: normocephalic, atraumatic Eye: Present: EOMI, PERRL ENT: Present: Orotracheally intubated - Routine Neck Exam Present: supple, full ROM. Absent: JVD Bandage from tips in right neck - Routine Respiratory Exam Present: Mechanically ventilated, crackles, distant breath sounds, diminished air movement. R pigtail catheter with approximately 790 mL output in 24 hours - Routine Cardiovascular Exam Present: RRR, S1, S2. Absent: murmur - Routine Abdominal Exam Present: soft, normoactive bowel sounds - Routine Skin Exam Present: intact, dry. Absent: cyanosis, erythema - Routine Neurological Exam Intubated sedated wakes up follows commands x4, but weakly, remains lethargic. No focal deficits Assessment and Plan - Assessment and Plan Plan: Neuro/Psych: Acute metabolic encephalopathy CO2 narcosis Currently on fentanyl for sedation/analgesia while intubated. Discontinue fentanyl Goal of RASS -1. Daily sedation vacation Ammonia level <10 CT brain 06/25 revealed no acute intracranial findings On lightening sedation patient continues to follow commands intermittently, remains lethargic CV: Essential hypertension Bradycardia Holding nadolol 20 mg daily hold due to bradycardia, continue midodrine 10 mg 3 times daily Hemodialysis started for fluid removal no response to IV Lasix Echocardiogram -EF 55-60%. Normal LV systolic function. Trace mitral valve regurgitation. Mitral annular calcification is present. Cannot rule out a small mobile echodensity on the left ventricular side of the anterior leaflet towards the left ventricular outflow tract in parasternal views. Clinical correlation recommended there is trace tricuspid valve regurgitation. The estimated pulmonary arterial pressure is 38 mmHg. Blood cultures have been negative Resp: Acute hypoxemic respiratory failure Right pleural effusion status post thoracentesis 06/25 -1200 cc, right pigtail chest tube placement 07/06/2018 PRVC ventilation. Head of bed at 30 degrees. Daily CPAP trials FiO2 requirement increased today after hemodialysis attempt CPAP trial Ventilator bundle. Albuterol/ipratropium aerosols every 4 hours with albuterol every 2 hours as needed dyspnea Right pigtail chest tube placed 07/06/2018, with 1.4 L drained initially. 790 mL in last 24 hours output Status post left thoracentesis 07/09/2018 with 500 mL removed GI: Portal hypertensive gastropathy LA class B esophagitis Distal esophageal ulcer Ascites -paracentesis 5700 cc 06/25. 5900 cc 06/28 Status post TIPS 07/01 for possible hepatorenal syndrome CT abdomen/pelvis 06/25 revealed cirrhotic type liver. Left-sided hydronephrosis. Moderate ascites EGD 06/28 revealed LA class B esophagitis. 7 mm distal esophageal ulcer. Portal hypertensive gastropathy.H. pylori negative. Continue midodrine. On octreotide 50 mcg IV every 8 hours for portal hypertension gastropathy, HRS Pantoprazole 40 mg IV daily. Discontinued Aldactone due to worsening renal failure Being followed by GI. Negative CA-19-9, alpha-fetoprotein, beta-hCG. Negative hepatitis panel Endo: Diabetes mellitus Hypothyroidism Gout Sliding scale insulin Accu-Cheks to maintain euglycemia/low every 6 hours aspart insulin Holding glipizide 5 mg daily/home medication Patient is on levothyroxine 300 mcg daily. Patient is on allopurinol at home. Hold due to renal failure Renal: Acute kidney failure Monitor urine output. Accurate I's and O's. Currently remains anuric. Hemodialysis catheter placed, started hemodialysis 07/08/2018 Can discontinue Madsen if okay with nephrology Avoid nephrotoxic medication No hydronephrosis on CT abdomen/pelvis on admission Nephrology Dr. Busby Heme: CLL [id number] score 0 Leukocytosis Normocytic anemia Followed by Dr. Flores/oncology. Follow-up on coags, CBC this a.m. Currently no indication for transfusion of blood products at this time. ID: Followed by infectious disease. Currently levofloxacin. metronidazole has been discontinued Peritoneal and pleural fluid 06/25 no growth today. Pleural fluid no growth to date F/U blood cultures x2, sputum, UA and influenza a and B now Access-utilize peripheral IV. Central line if indicated Prophylaxis -GI -pantoprazole -DVT -SCDs/heparin subcu Remains critically ill with multiorgan failure renal failure persist patient is anuric. Respiratory failure slightly worsened FiO2 requirement increased to 50% . Hemodialysis with fluid removal if oxygenation improves will attempt CPAP trial. Patient is at acute risk of decompensation and at this time due to multiorgan failure Consult 35 minutes critical care time
[2018-07-11] MEDS: Heparin - SQ 10,000 UNITS/ML Vial SQ SCH ×2 (08:31→20:08)
[2018-07-11] MEDS: levoFLOXacin 250 MG Tablet PO SCH (08:31)
[2018-07-11] MEDS: Chlorhexidine 0.12% Oral Kit 15 ML UDC OROPHARYNG SCH ×2 (08:32→20:08)
--- NOTE | 2018-07-11 12:07 | P.PNNP ---
Subjective Interval history: Patient was seen, orally intubated on 50% FiO2. Patient to be dialyzed today. Possible extubation after dialysis today. <Des Arora - Last Filed: 07/11/18 12:08> Physical Exam Vital signs: Vital Signs 07/10/18 12:30 07/10/18 13:00 07/10/18 13:30 Temperature Pulse Rate 58 L 57 L 66 Respiratory Rate 7 L 8 L 17 Blood Pressure 114/56 L 115/58 L 126/58 L Pulse Oximetry 97 98 92 L 07/10/18 14:00 07/10/18 15:18 07/10/18 16:00 Temperature 99.0 F Pulse Rate 66 64 Respiratory Rate 17 17 11 L Blood Pressure 143/66 H 142/62 H Pulse Oximetry 93 L 95 96 07/10/18 19:37 07/10/18 20:00 07/10/18 23:30 Temperature 98.5 F Pulse Rate 72 71 Respiratory Rate 23 29 H 19 Blood Pressure 134/63 Pulse Oximetry 95 94 L 93 L 07/11/18 00:00 07/11/18 03:55 07/11/18 04:00 Temperature 97.5 F L 98.7 F Pulse Rate 72 63 Respiratory Rate 18 18 18 Blood Pressure 114/58 L 95/55 L Pulse Oximetry 94 L 94 L 95 07/11/18 08:00 07/11/18 08:48 07/11/18 11:41 Temperature 97.8 F Pulse Rate 65 Respiratory Rate 19 19 18 Blood Pressure 93/54 L Pulse Oximetry 95 94 L 95 Intake & Output 07/10/18 07/11/18 07/11/18 18:59 06:59 18:59 Intake Total 497 / 497 Output Total 790 / 790 Balance -293 / -293 Weight 87.5 kg Intake: IV 300 / 300 Flexbumin 25% Inj 100 ML @ 60 300 / 300 mls/hr IV.SIG Q8H [facility] Rx#: [id number] Tube Feeding 197 / 197 Output: Chest Tube Drainage 790 / 790 #1 Right Mid-Axillary Chest 790 / 790 Other: Date of Last Bowel Movement 07/10/18 07/10/18 07/10/18 # Incontinent Bowel Movements 5 Narrative: GENERAL: Chronically ill appearing. SKIN: Pale. CARDIOVASCULAR: Regular rate and rhythm. RESPIRATORY: Mechanically ventilated, diminished air movement. Chest tube in place with yellow drainage. ABDOMEN: Soft, non-tender. NEUROLOGICAL: Patient is responsive but lethargic. PSYCHIATRIC: Unable to access. - Urinary Catheter Management Straight Cath placed during this visit: yes, but has since been removed by the nurse Reason for continuing: Not indwelling catheter Insertion date: 07/07/18 Insertion time: 18:00 Removal date: 07/07/18 Removal time: 18:20 <Des Arora - Last Filed: 07/11/18 12:08> Vital signs: Vital Signs 07/11/18 08:00 07/11/18 08:48 07/11/18 11:41 Temperature 97.8 F Pulse Rate 65 Respiratory Rate 19 19 18 Blood Pressure 93/54 L Pulse Oximetry 95 94 L 95 07/11/18 12:00 07/11/18 15:33 07/11/18 16:00 Temperature 98.0 F 98.0 F Pulse Rate 68 69 Respiratory Rate 22 18 21 Blood Pressure 110/53 L Pulse Oximetry 93 L 98 94 L 07/11/18 19:50 07/11/18 20:00 07/11/18 23:50 Temperature 98.5 F Pulse Rate 61 67 61 Respiratory Rate 18 18 18 Blood Pressure 113/62 Pulse Oximetry 92 L 92 L 07/11/18 23:52 07/12/18 00:00 07/12/18 04:00 Temperature 98.4 F 97.6 F Pulse Rate 63 66 Respiratory Rate 18 18 18 Blood Pressure 105/54 L 125/58 L Pulse Oximetry 96 95 98 07/12/18 04:09 07/12/18 06:16 07/12/18 07:00 Temperature Pulse Rate 62 Respiratory Rate 18 18 Blood Pressure Pulse Oximetry 96 96 Intake & Output 07/11/18 07/12/18 07/12/18 18:59 06:59 18:59 Intake Total 200 / 200 200 / 200 Output Total 1690 / 1690 130 / 130 Balance -1490 / -1490 70 / 70 Weight 85 kg Intake: IV 200 / 200 200 / 200 Flexbumin 25% Inj 100 ML @ 60 200 / 200 200 / 200 mls/hr IV.SIG Q8H [facility] Rx#: [id number] Output: Urine 0 / 0 Hemodialysis Amount 1500 / 1500 Chest Tube Drainage 190 / 190 130 / 130 #1 Right Mid-Axillary Chest 190 / 190 130 / 130 Other: Date of Last Bowel Movement 07/10/18 07/12/18 # Incontinent Bowel Movements 2 - Urinary Catheter Management Straight Cath placed during this visit: no <Papi Busby - Last Filed: 07/12/18 07:48> Assessment and Plan - Assessment (1) Acute on chronic kidney failure Code(s): N17.9 - Acute kidney failure, unspecified; N18.9 - Chronic kidney disease, unspecified Status: Acute Plan: Patient has chronic kidney disease and possibly has ATN. 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 Patient is not a good candidate for dialysis, patient and family previously informed. HD initiated Wednesday with 2L UF HD done again Wednesday with only 1L UF achieved (hypotension) Will do HD again today with UF as tolerated. Poor overall prognosis. (2) Diabetes Code(s): E11.9 - Type 2 diabetes mellitus without complications Status: Acute Plan: Insulin coverage to maintain glucose levels between 140 and 180. (3) Abdominal distension Code(s): R14.0 - Abdominal distension (gaseous) Status: Acute Plan: s/p paracentesis x2. - Plan S/P TIPS procedure 07/01/18 <Des Arora - Last Filed: 07/11/18 12:08> - Assessment (1) Acute on chronic kidney failure Code(s): N17.9 - Acute kidney failure, unspecified; N18.9 - Chronic kidney disease, unspecified Status: Acute (2) Diabetes Code(s): E11.9 - Type 2 diabetes mellitus without complications Status: Acute (3) Abdominal distension Code(s): R14.0 - Abdominal distension (gaseous) Status: Acute - Attending Attestation patient was seen and examined. Agree with above assessment and plan. <Papi Busby - Last Filed: 07/12/18 07:48>
--- NOTE | 2018-07-11 12:44 | P.PN ---
Subjective Interval history: ALRT NAD Physical Exam Vital signs: Vital Signs 07/10/18 13:00 07/10/18 13:30 07/10/18 14:00 Temperature Pulse Rate 57 L 66 66 Respiratory Rate 8 L 17 17 Blood Pressure 115/58 L 126/58 L 143/66 H Pulse Oximetry 98 92 L 93 L 07/10/18 15:18 07/10/18 16:00 07/10/18 19:37 Temperature 99.0 F Pulse Rate 64 72 Respiratory Rate 17 11 L 23 Blood Pressure 142/62 H Pulse Oximetry 95 96 95 07/10/18 20:00 07/10/18 23:30 07/11/18 00:00 Temperature 98.5 F 97.5 F L Pulse Rate 71 72 Respiratory Rate 29 H 19 18 Blood Pressure 134/63 114/58 L Pulse Oximetry 94 L 93 L 94 L 07/11/18 03:55 07/11/18 04:00 07/11/18 08:00 Temperature 98.7 F 97.8 F Pulse Rate 63 65 Respiratory Rate 18 18 19 Blood Pressure 95/55 L 93/54 L Pulse Oximetry 94 L 95 95 07/11/18 08:48 07/11/18 11:41 Temperature Pulse Rate Respiratory Rate 19 18 Blood Pressure Pulse Oximetry 94 L 95 Intake & Output 07/10/18 07/11/18 07/11/18 18:59 06:59 18:59 Intake Total 497 / 497 Output Total 790 / 790 Balance -293 / -293 Weight 87.5 kg Intake: IV 300 / 300 Flexbumin 25% Inj 100 ML @ 60 300 / 300 mls/hr IV.SIG Q8H [facility] Rx#: [id number] Tube Feeding 197 / 197 Output: Chest Tube Drainage 790 / 790 #1 Right Mid-Axillary Chest 790 / 790 Other: Date of Last Bowel Movement 07/10/18 07/10/18 07/10/18 # Incontinent Bowel Movements 5 Narrative: GENERAL: Chronically ill appearing. SKIN: Pale. CARDIOVASCULAR: Regular rate and rhythm. RESPIRATORY: Mechanically ventilated, diminished air movement. Chest tube in place with yellow drainage. ABDOMEN: Soft, non-tender. NEUROLOGICAL: Patient is responsive but lethargic. PSYCHIATRIC: Unable to access. - Urinary Catheter Management Straight Cath placed during this visit: yes, but has since been removed by the nurse Reason for continuing: Not indwelling catheter Insertion date: 07/07/18 Insertion time: 18:00 Removal date: 07/07/18 Removal time: 18:20 Results - Labs CBC & Chem 7: 07/11/18 04:59 07/11/18 04:59 Laboratory Results - last 24 hr 07/10/18 07/10/18 07/11/18 17:34 23:40 04:59 WBC 36.4 H RBC 2.89 L Hgb 8.8 L Hct 27.1 L MCV 93.6 MCH 30.4 MCHC 32.5 RDW 19.2 H Plt Count 91 L MPV 8.6 Sodium Potassium Chloride Carbon Dioxide Anion Gap BUN Creatinine Estimated GFR POC Glucose 176 H 230 H Random Glucose Calcium Phosphorus Total Bilirubin AST ALT Alkaline Phosphatase Total Protein Albumin 07/11/18 07/11/18 07/11/18 04:59 05:28 11:31 WBC RBC Hgb Hct MCV MCH MCHC RDW Plt Count MPV Sodium 143 Potassium 3.6 Chloride 105 Carbon Dioxide 21.3 Anion Gap 17 H BUN 67 H Creatinine 5.28 H Estimated GFR 8 L POC Glucose 212 H 177 H Random Glucose 206 H Calcium 9.1 Phosphorus 3.6 Total Bilirubin 4.8 H AST 53 H ALT 16 Alkaline Phosphatase 293 H Total Protein 6.3 L Albumin 4.8 Microbiology 07/06/18 05:15 Blood - Peripheral Aerobic Blood Culture - Final No growth in 5 days 07/06/18 05:15 Blood - Peripheral Anaerobic Blood Culture - Final No growth in 5 days 07/06/18 05:20 Blood - Peripheral Aerobic Blood Culture - Final No growth in 5 days 07/06/18 05:20 Blood - Peripheral Anaerobic Blood Culture - Final No growth in 5 days 07/09/18 11:20 Fluid - Pleural fluid Gram Stain - Final 07/09/18 11:20 Fluid - Pleural fluid Body Fluid Culture - Preliminary No growth in 48 hours - Imaging Impressions Chest X-Ray 07/11/18 06:00 CONCLUSION: 1. Stable tubes and lines, as above. 2. Stable right-sided chest tube without pneumothorax. 3. Slightly improved patchy airspace disease in the right lower lung zone. 4. Persistent left lower lung zone airspace disease. Assessment and Plan - Plan RESPIRATORY FAILURE RENAL FAILURE PLEURAL EFFUSION PLAN O2 NEEDED DIALYSIS F/U CXRAY
--- NOTE | 2018-07-11 13:19 | P.PNPAL ---
Reason for Visit Reason for visit: a. To assist with evaluation and management of symptoms including: Shortness of breath, pain, debility b. To assist medical decision maker(s) with: better understanding of current medical conditions; weighing benefits/burdens of medical treatment options; making medical treatment decisions. Subjective Subjective/Interval History: Follow-up medically necessary for symptom management and family support. Patient remains on MICU. Remains intubated, no sedation at this time. Patient is not following commands, no eye opening. Patient is not showing any signs of pain at this time. Per bedside RN, she is only opened his eyes but not followed commands. Ongoing spontaneous breathing trials off until last night when patient had an episode of hypoxia overnight with O2 saturation in the low 80s requiring increasing FiO2 from 40 to 50%. She remains anuric. Plan for hemodialysis today. Persistent leukocytosis. Patient's renal function not showing much improvement despite hemodialysis. Laboratory workup today revealing sodium 1.43, potassium 3.6, BUN/creatinine 67/5.28, random glucose 206, calcium 9.1, total bilirubin 4.8, AST 53, ALT 16, alkaline phosphatase 293, total protein 6.3, albumin 4.8 Pulmonology, infectious disease following. No family at bedside. Call placed to patient spouse, no response-left voice message. Patient`s spouse returned call. Updated him on patient`s medical status. Expressed concern that patient is not showing improvement in her renal function despite hemodialysis. Patient spouse said, "Do your best to keep her alive". Readdressed code status in case patient gets medically extubated and patient`s spouse wants patient to be reintubated if she goes into respiratory failure after medical extubation. . Family/Friend Interactions: Telephone call placed to patient spouse Higinio Lima-no response-left a voice message. . Advance Directives Living Will: Never completed Health Care Surrogate: Copy in medical record Durable Power of Project Manager/Design Manager: Never completed Advance Directives Date on File: 06/29/18 Health Care Surrogate Name and Number: HCS: Clarence Sylvester [phone] Alt: Bharat Willard Documented care wishes:: Never completed living will. . Objective Vital Signs: Vital Signs 07/10/18 13:30 07/10/18 14:00 07/10/18 15:18 Temperature Pulse Rate 66 66 Respiratory Rate 17 17 17 Blood Pressure 126/58 L 143/66 H Pulse Oximetry 92 L 93 L 95 07/10/18 16:00 07/10/18 19:37 07/10/18 20:00 Temperature 99.0 F 98.5 F Pulse Rate 64 72 71 Respiratory Rate 11 L 23 29 H Blood Pressure 142/62 H 134/63 Pulse Oximetry 96 95 94 L 07/10/18 23:30 07/11/18 00:00 07/11/18 03:55 Temperature 97.5 F L Pulse Rate 72 Respiratory Rate 19 18 18 Blood Pressure 114/58 L Pulse Oximetry 93 L 94 L 94 L 07/11/18 04:00 07/11/18 08:00 07/11/18 08:48 Temperature 98.7 F 97.8 F Pulse Rate 63 65 Respiratory Rate 18 19 19 Blood Pressure 95/55 L 93/54 L Pulse Oximetry 95 95 94 L 07/11/18 11:41 Temperature Pulse Rate Respiratory Rate 18 Blood Pressure Pulse Oximetry 95 Intake & Output 07/10/18 07/11/18 07/11/18 18:59 06:59 18:59 Intake Total 497 / 497 Output Total 790 / 790 Balance -293 / -293 Weight 87.5 kg Intake: IV 300 / 300 Flexbumin 25% Inj 100 ML @ 60 300 / 300 mls/hr IV.SIG Q8H [facility] Rx#: [id number] Tube Feeding 197 / 197 Output: Chest Tube Drainage 790 / 790 #1 Right Mid-Axillary Chest 790 / 790 Other: Date of Last Bowel Movement 07/10/18 07/10/18 07/10/18 # Incontinent Bowel Movements 5 Physical Exam: CONSTITUTIONAL/GENERAL: This is a chronically ill looking elderly patient, intubated and sedated.. TUBES/LINES/DRAINS: PIV, ETT, Madsen catheter, Dobbhoff catheter, Vas cath SKIN: Pale. Slightly jaundiced. Ecchymoses on upper extremities. Surgical incision to right IJ with a dressing on. HEAD: Atraumatic. Normocephalic. EYES: Pupils equal and reactive to light. Fundi not examined. ENT: Nose without bleeding or purulent drainage. Edentulous. ETT NECK: Trachea midline. Supple, nontender. CARDIOVASCULAR: S1, S2 normal. No JVD. Peripheral pulses symmetric. RESPIRATORY/CHEST: Symmetric. Diminished breath sounds right pigtail chest tube to suction. No wheezes, rales, or rhonchi. GASTROINTESTINAL: Abdomen soft, non-tender, distended. No guarding. Hypoactive bowel sounds.Dobbhoff catheter clamped. GENITOURINARY: Without palpable bladder distension. MUSCULOSKELETAL: Extremities without clubbing, cyanosis, or edema. No mottling or clubbing. LYMPHATICS: Did not assess NEUROLOGICAL: Intubated. PSYCHIATRIC: Unable to assess Diagnostic Tests Laboratory: Laboratory Results - last 72 hr 07/08/18 07/08/18 07/09/18 16:51 23:17 04:34 WBC 49.4 H RBC 2.98 L Hgb 9.1 L Hct 28.5 L MCV 95.6 MCH 30.6 MCHC 32.0 RDW 17.4 H Plt Count 117 L MPV 8.8 Sodium Potassium Chloride Carbon Dioxide Anion Gap BUN Creatinine Estimated GFR POC Glucose 139 H 165 H Random Glucose Calcium Phosphorus Magnesium Total Bilirubin AST ALT Alkaline Phosphatase Total Protein Albumin Pleural pH Pleural RBC Pleural Nuc Cells Pleural Neutrophils Pleural Lymphocytes Pleural Monocytes Pleural Basophils Pleural Plasma Cells Pleural Histocytes Pleural Mesothelial Pleural Total Protein Pleural LDH Pleural Glucose Pleural Amylase 07/09/18 07/09/18 07/09/18 04:34 06:13 11:20 WBC RBC Hgb Hct MCV MCH MCHC RDW Plt Count MPV Sodium 141 Potassium 4.2 Chloride 107 Carbon Dioxide 19.3 L Anion Gap 15 BUN 76 H Creatinine 5.27 H Estimated GFR 8 L POC Glucose 199 H Random Glucose 194 H Calcium 8.4 L Phosphorus Magnesium 1.9 Total Bilirubin 3.3 H AST 77 H ALT 25 Alkaline Phosphatase 144 H Total Protein 6.2 L Albumin 4.7 Pleural pH 8.5 Pleural RBC Pleural Nuc Cells Pleural Neutrophils Pleural Lymphocytes Pleural Monocytes Pleural Basophils Pleural Plasma Cells Pleural Histocytes Pleural Mesothelial Pleural Total Protein 2.6 Pleural LDH 106 Pleural Glucose 222 Pleural Amylase 42 07/09/18 07/09/18 07/09/18 11:20 18:43 23:02 WBC RBC Hgb Hct MCV MCH MCHC RDW Plt Count MPV Sodium Potassium Chloride Carbon Dioxide Anion Gap BUN Creatinine Estimated GFR POC Glucose 163 H 175 H Random Glucose Calcium Phosphorus Magnesium Total Bilirubin AST ALT Alkaline Phosphatase Total Protein Albumin Pleural pH Pleural RBC 60 H Pleural Nuc Cells 115 H Pleural Neutrophils 6 Pleural Lymphocytes 47 Pleural Monocytes 40 Pleural Basophils 1 Pleural Plasma Cells 1 Pleural Histocytes 2 Pleural Mesothelial 3 Pleural Total Protein Pleural LDH Pleural Glucose Pleural Amylase 07/10/18 07/10/18 07/10/18 04:57 05:25 05:25 WBC 32.0 H RBC 2.78 L Hgb 8.5 L Hct 26.2 L MCV 94.4 MCH 30.5 MCHC 32.3 RDW 17.6 H Plt Count 96 L MPV 8.6 Sodium 143 Potassium 3.6 Chloride 106 Carbon Dioxide 24.4 Anion Gap 13 BUN 54 H Creatinine 4.31 H Estimated GFR 10 L POC Glucose 189 H Random Glucose 190 H Calcium 8.4 L Phosphorus 3.2 Magnesium 2.0 Total Bilirubin 2.9 H AST 43 H ALT 18 Alkaline Phosphatase 101 Total Protein 6.3 L Albumin 4.7 Pleural pH Pleural RBC Pleural Nuc Cells Pleural Neutrophils Pleural Lymphocytes Pleural Monocytes Pleural Basophils Pleural Plasma Cells Pleural Histocytes Pleural Mesothelial Pleural Total Protein Pleural LDH Pleural Glucose Pleural Amylase 07/10/18 07/10/18 07/11/18 17:34 23:40 04:59 WBC 36.4 H RBC 2.89 L Hgb 8.8 L Hct 27.1 L MCV 93.6 MCH 30.4 MCHC 32.5 RDW 19.2 H Plt Count 91 L MPV 8.6 Sodium Potassium Chloride Carbon Dioxide Anion Gap BUN Creatinine Estimated GFR POC Glucose 176 H 230 H Random Glucose Calcium Phosphorus Magnesium Total Bilirubin AST ALT Alkaline Phosphatase Total Protein Albumin Pleural pH Pleural RBC Pleural Nuc Cells Pleural Neutrophils Pleural Lymphocytes Pleural Monocytes Pleural Basophils Pleural Plasma Cells Pleural Histocytes Pleural Mesothelial Pleural Total Protein Pleural LDH Pleural Glucose Pleural Amylase 07/11/18 07/11/18 07/11/18 04:59 05:28 11:31 WBC RBC Hgb Hct MCV MCH MCHC RDW Plt Count MPV Sodium 143 Potassium 3.6 Chloride 105 Carbon Dioxide 21.3 Anion Gap 17 H BUN 67 H Creatinine 5.28 H Estimated GFR 8 L POC Glucose 212 H 177 H Random Glucose 206 H Calcium 9.1 Phosphorus 3.6 Magnesium Total Bilirubin 4.8 H AST 53 H ALT 16 Alkaline Phosphatase 293 H Total Protein 6.3 L Albumin 4.8 Pleural pH Pleural RBC Pleural Nuc Cells Pleural Neutrophils Pleural Lymphocytes Pleural Monocytes Pleural Basophils Pleural Plasma Cells Pleural Histocytes Pleural Mesothelial Pleural Total Protein Pleural LDH Pleural Glucose Pleural Amylase Result Diagrams: 07/13/18 09:02 07/13/18 09:02 Microbiology: Microbiology 07/06/18 05:15 Aerobic Blood Culture - Final Blood - Peripheral No growth in 5 days Anaerobic Blood Culture - Final No growth in 5 days 07/06/18 05:20 Aerobic Blood Culture - Final Blood - Peripheral No growth in 5 days Anaerobic Blood Culture - Final No growth in 5 days 07/09/18 11:20 Gram Stain - Final Fluid - Pleural fluid Body Fluid Culture - Preliminary No growth in 48 hours 06/25/18 19:15 Fungal Smear - Final Fluid - Pleural fluid No fungal elements seen Fungal Culture - Preliminary No growth in 2 weeks 06/25/18 17:15 Acid Fast Bacilli Smear - Final Abscess - Chest No acid fast bacilli seen Mycobacterial Culture - Preliminary No growth in 2 weeks 06/25/18 17:45 Fungal Smear - Final Fluid - Peritoneal fluid No fungal elements seen Fungal Culture - Preliminary No growth in 2 weeks 06/25/18 17:45 Acid Fast Bacilli Smear - Final Fluid - Peritoneal fluid No acid fast bacilli seen Mycobacterial Culture - Preliminary No growth in 2 weeks 07/07/18 18:30 Urine Culture - Final Catheterized Urine No growth in 48 hours 07/06/18 15:15 Gram Stain - Final Fluid - Pleural fluid Body Fluid Culture - Final No growth in 72 hours (aerobically and anaerobically) 07/06/18 15:15 Acid Fast Bacilli Smear - Final Fluid - Pleural fluid No acid fast bacilli seen Imaging: Abdomen Ultrasound 06/25/18 00:00 CONCLUSION: 1. Moderate ascites 2. Hepatic cirrhosis Abdomen/Pelvis CT 06/25/18 00:00 CONCLUSION: 1. Suspected cirrhotic liver. 2. Mild to moderate amount of ascites. 3. Bilateral pleural effusions being mild on the right and minimal on the left. 4. Increased density at the inferior right middle lobe and right lower lobe likely related to consolidation or atelectasis. 5. Anasarca 6. Tiny nonobstructing left renal stone. Chest Ultrasound 06/25/18 00:00 CONCLUSION: 1. Large right pleural effusion without appreciable loculation. Thoracentesis Ultrasound 06/25/18 00:00 CONCLUSION: 1. Uncomplicated right thoracentesis. Head CT 06/25/18 06:47 CONCLUSION: 1. Stable evaluation of the head. 2. No evidence of acute infarct, hemorrhage, mass or edema. . Paracentesis Ultrasound 06/29/18 00:00 CONCLUSION: 1. Uncomplicated paracentesis. TIPS 07/01/18 00:00 CONCLUSION: 1. Uncomplicated fluoroscopic guided placement of TIPS shunts from the right hepatic vein to the right portal vein, as above. PLAN: Baseline ultrasound examination in 2 weeks with surveillance ultrasound at 3 months, 6 months and one year. Abdomen X-Ray 07/06/18 11:06 CONCLUSION: Dobbhoff tube tip is noted within the expected region of the distal stomach. Chest X-Ray 07/11/18 06:00 CONCLUSION: 1. Stable tubes and lines, as above. 2. Stable right-sided chest tube without pneumothorax. 3. Slightly improved patchy airspace disease in the right lower lung zone. 4. Persistent left lower lung zone airspace disease. Procedures: 06/25/18-Ultrasound guided paracentesis by interventional radiology with removal of 5700 mL's of clear, yellow fluid. 06/25/18 -Ultrasound-guided thoracentesis by interventional radiology with removal of 1200 mL's of clear, yellow fluid. 06/29/1892-[id number] paracentesis by interventional radiology with removal of 5900 mL's of clear, red fluid. 07/01/18-transjugular intrahepatic portosystemic shunt placement by interventional radiology 07/06/18-Endotracheally intubated 07/06/1824-[id number] right chest tube placement for large right pleural effusion 07/07/18-Hemodialysis catheter to left IJ 07/08/18-Hemodialysis started . Assessment and Plan - Disease Oriented Problem List (1) Sepsis (2) Diabetes (3) Pneumonia (4) Acute on chronic kidney failure (5) Abdominal distension - Symptom Scale (1) Shortness of breath Comment: This is most likely from ascites and pleural effusion. Patient has had ultrasound guided thoracentesis on 03/05 with removal of 1200 mL's of clear, yellow fluid and ultrasound guided paracentesis on 06/25/18 with removal of 5700 mL's of clear fluid. (2) Pain Comment: From bedbound status, intubation and other interventions. (3) Debility Comment: Progressive. Patient has multiple ongoing comorbidities. Pertinent Non-Medical Issues: Psychosocial: Patient is originally from [facility]. She moved to [place] in 1983. She has been to her current for 29 years. 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 Patient has never had children. Spiritual: Patient is Muslim-open to features editor or gauge maker to visit. Legal: Patient has completed designation of healthcare surrogate form today 07/05. Ethical issues impacting care: None identified at this time Important Contacts: Healthcare surrogate -spouse-Higinio Lima [phone] Alternate healthcare surrogate-Bharat Willard -[phone] Family friend-Keon Real [phone] . Prognosis: Mrs. Phoenix is a 72-year-old female with a past medical history of chronic lymphoid leukemia, asthma, diabetes mellitus, fatty liver, gout, arthritis, kidney disease, and thyroid disease. Patient presented to the emergency room on 06/25/18 for evaluation of generalized weakness, abdominal distention, shortness of breath and a painful bump on her head which she sustained from a fall from her water bed a week prior to presenting to the emergency room. Diagnostic EGD has showed that patient has liver cirrhosis. Clinical course complicated by shortness of breath, worsening renal function, and recurrent ascites. Given multiple ongoing comorbidities, patient remains at high risk for further complications, deterioration and decline. . Code Status: Alternative Code Plan: PLAN: Legal decision maker: Patient is currently intubated, sedated and is not able to participate in decision-making. It is not known with the patient will ever regain capacity to make medical decisions for himself. Patient has designated her spouse Higinio Lima as her healthcare surrogate and her neighbor Sudheer Nicholson is her alternate healthcare surrogate in the past when she was able to make medical decisions. Goals: Goals remain aggressive. Telephone conversation with patient`s spouse on 07/11/18. Expressed concern that patient is not showing improvement in her renal function despite hemodialysis. Patient spouse said, "Do your best to keep her alive". Readdressed code status in case patient gets medically extubated and patient`s spouse wants patient to be reintubated if she goes into respiratory failure after medical extubation. Patient spouse Higinio Lima is grieving the loss of his only living relative-his brother who 07/06/18 and he mentioned that he is not ready to lose his . CODE STATUS: Alternate code-Intubation only SYMPTOMS: * Shortness of breath:This is most likely from ascites and pleural effusion. Patient has had ultrasound guided thoracentesis on 06/25/18 with removal of 1200 mL's of clear, yellow fluid and ultrasound guided paracentesis on 06/25/18 with removal of 5700 mL's of clear fluid. Patient had another therapeutic paracentesis with removal of 5900 mL's of clear red fluid. Intubated on 07/06/18 - due to confusion, tachypneic, desaturation and lethargy. Currently on FiO2 50 %. Right pigtail chest tube placed on 07/06/18. Pulmonology following. No recommendations at this time. * Pain: Patient can have pain from bedbound status, intubation and other interventions. Fentanyl infusion discontinued. Patient does not appear to be in pain at this time. No recommendations at this time. * Debility: Progressive. Patient has ongoing multiple comorbidities and has had multiple falls at home. Patient uses a wheeled walker at home. Physical therapy consulted, recommended PT at rehab. Palliative care will continue to follow the patient during hospital course as condition evolves, to assist patient/decision-maker with understanding of their medical conditions, weighing benefits/burdens of treatment options, for clarification of goals of treatment. Additionally will assist with any symptoms of palliative concern Attestation Attestation: To help prompt me to consider important information that might be impacting today's encounter and assessment, information from prior notes written by myself or my colleagues may have been "brought forward" into today's note. My signature on this note, however, is an attestation that I personally performed the exam, history, and/or decision-making noted today, and, unless otherwise indicated, the interactions with patient, family, and staff as well as the review of records all occurred today. I also attest that the listed assessment and stated plan reflect my best clinical judgment today based on the combination of historical information, prior notes, and today's exam/ interactions. When time spent is documented, it refers only to time spent today by the signer, or if indicated, combined time spent today by collaborating physician/nurse practitioner.
--- NOTE | 2018-07-11 14:26 | P.PNID ---
Subjective Remarks: ID coverage: Patient is a 72-year-old female presented to the hospital complaining of shortness of breath. She has had problem with shortness of breath over the last several months, but it has progressively worsened that she has difficulty ambulating. She gets orthopnea. She occasionally has cough but no phlegm. Denies any chest pain. She admits to some intermittent low-grade fevers. It was also noted that her abdomen has been more distended. On evaluation she was found to have pleural effusions as well as ascites and liver cirrhosis on ultrasound. She also had a CT of the abdomen and pelvis which did not show any lymphadenopathy. She has not been febrile. She has had thoracentesis and they took out 1.2 L of fluid. Paracentesis and they took out 5.7 L of ascites. Since admission she has had leukocytosis of 20,000 and higher. 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 She has not required any treatment for her CLL. Patient had upper endoscopy. She has had some diarrhea. She is noted increased abdominal girth again. Patient also has had increasing creatinine, and her urine output has been decreasing. Stool for C. difficile is negative. I do not have a urinalysis. Her initial chest x-ray on admission showing a right base infiltrate and effusion. Her last chest x-ray after she has had thoracenteses showed hypoaeration, with no infiltrates seen. Patient has been on Rocephin since admission. Infectious disease consultation has been requested to assist with evaluation and treatment of leukocytosis. Patient opens eyes to commands. Currently on ventilator. Afebrile. No significant overnight events. CBC remained elevated. Discussed with RN. Pigtail cath placed on her R chest Had TIPS procedure 07/01 Antibiotics: Lines: LIJ vascath PIV Past Medical History: Asthma Diabetes Gout Hypertension Leukemia H/O foot surgery H/O thyroidectomy Allergies/Adverse Reactions: Allergies No Known Allergies Allergy (Verified 06/25/18 05:25) Objective Vital Signs 07/10/18 15:18 07/10/18 16:00 07/10/18 19:37 Temperature 99.0 F Pulse Rate 64 72 Respiratory Rate 17 11 L 23 Blood Pressure 142/62 H Pulse Oximetry 95 96 95 07/10/18 20:00 07/10/18 23:30 07/11/18 00:00 Temperature 98.5 F 97.5 F L Pulse Rate 71 72 Respiratory Rate 29 H 19 18 Blood Pressure 134/63 114/58 L Pulse Oximetry 94 L 93 L 94 L 07/11/18 03:55 07/11/18 04:00 07/11/18 08:00 Temperature 98.7 F 97.8 F Pulse Rate 63 65 Respiratory Rate 18 18 19 Blood Pressure 95/55 L 93/54 L Pulse Oximetry 94 L 95 95 07/11/18 08:48 07/11/18 11:41 Temperature Pulse Rate Respiratory Rate 19 18 Blood Pressure Pulse Oximetry 94 L 95 Intake & Output 07/10/18 07/11/18 07/11/18 18:59 06:59 18:59 Intake Total 497 / 497 Output Total 790 / 790 Balance -293 / -293 Weight 87.5 kg Intake: IV 300 / 300 Flexbumin 25% Inj 100 ML @ 60 300 / 300 mls/hr IV.SIG Q8H [facility] Rx#: [id number] Tube Feeding 197 / 197 Output: Chest Tube Drainage 790 / 790 #1 Right Mid-Axillary Chest 790 / 790 Other: Date of Last Bowel Movement 07/10/18 07/10/18 07/10/18 # Incontinent Bowel Movements 5 07/06/18 05:15 Blood - Peripheral Aerobic Blood Culture - Final No growth in 5 days 07/06/18 05:15 Blood - Peripheral Anaerobic Blood Culture - Final No growth in 5 days 07/06/18 05:20 Blood - Peripheral Aerobic Blood Culture - Final No growth in 5 days 07/06/18 05:20 Blood - Peripheral Anaerobic Blood Culture - Final No growth in 5 days 07/09/18 11:20 Fluid - Pleural fluid Gram Stain - Final 07/09/18 11:20 Fluid - Pleural fluid Body Fluid Culture - Preliminary No growth in 48 hours 06/25/18 19:15 Fluid - Pleural fluid Fungal Smear - Final No fungal elements seen 06/25/18 19:15 Fluid - Pleural fluid Fungal Culture - Preliminary No growth in 2 weeks 06/25/18 17:15 Abscess - Chest Acid Fast Bacilli Smear - Final No acid fast bacilli seen 06/25/18 17:15 Abscess - Chest Mycobacterial Culture - Preliminary No growth in 2 weeks 06/25/18 17:45 Fluid - Peritoneal fluid Fungal Smear - Final No fungal elements seen 06/25/18 17:45 Fluid - Peritoneal fluid Fungal Culture - Preliminary No growth in 2 weeks 06/25/18 17:45 Fluid - Peritoneal fluid Acid Fast Bacilli Smear - Final No acid fast bacilli seen 06/25/18 17:45 Fluid - Peritoneal fluid Mycobacterial Culture - Preliminary No growth in 2 weeks 07/07/18 18:30 Catheterized Urine Urine Culture - Final No growth in 48 hours 07/06/18 15:15 Fluid - Pleural fluid Gram Stain - Final 07/06/18 15:15 Fluid - Pleural fluid Body Fluid Culture - Final No growth in 72 hours (aerobically and anaerobically ) 07/06/18 15:15 Fluid - Pleural fluid Acid Fast Bacilli Smear - Final No acid fast bacilli seen 07/06/18 15:15 Fluid - Pleural fluid Mycobacterial Culture - Pending Lab - Hematology Results 07/10/18 07/11/18 05:25 04:59 WBC 32.0 H 36.4 H RBC 2.78 L 2.89 L Hgb 8.5 L 8.8 L Hct 26.2 L 27.1 L MCV 94.4 93.6 MCH 30.5 30.4 MCHC 32.3 32.5 RDW 17.6 H 19.2 H Plt Count 96 L 91 L MPV 8.6 8.6 Lab - Chemistry Results 07/09/18 07/09/18 07/10/18 18:43 23:02 04:57 Sodium Potassium Chloride Carbon Dioxide Anion Gap BUN Creatinine Estimated GFR POC Glucose 163 H 175 H 189 H Random Glucose Calcium Phosphorus Magnesium Total Bilirubin AST ALT Alkaline Phosphatase Total Protein Albumin 07/10/18 07/10/18 07/10/18 05:25 17:34 23:40 Sodium 143 Potassium 3.6 Chloride 106 Carbon Dioxide 24.4 Anion Gap 13 BUN 54 H Creatinine 4.31 H Estimated GFR 10 L POC Glucose 176 H 230 H Random Glucose 190 H Calcium 8.4 L Phosphorus 3.2 Magnesium 2.0 Total Bilirubin 2.9 H AST 43 H ALT 18 Alkaline Phosphatase 101 Total Protein 6.3 L Albumin 4.7 07/11/18 07/11/18 07/11/18 04:59 05:28 11:31 Sodium 143 Potassium 3.6 Chloride 105 Carbon Dioxide 21.3 Anion Gap 17 H BUN 67 H Creatinine 5.28 H Estimated GFR 8 L POC Glucose 212 H 177 H Random Glucose 206 H Calcium 9.1 Phosphorus 3.6 Magnesium Total Bilirubin 4.8 H AST 53 H ALT 16 Alkaline Phosphatase 293 H Total Protein 6.3 L Albumin 4.8 Imaging: ITS Impressions Abdomen Ultrasound 06/25/18 00:00 CONCLUSION: 1. Moderate ascites 2. Hepatic cirrhosis Abdomen/Pelvis CT 06/25/18 00:00 CONCLUSION: 1. Suspected cirrhotic liver. 2. Mild to moderate amount of ascites. 3. Bilateral pleural effusions being mild on the right and minimal on the left. 4. Increased density at the inferior right middle lobe and right lower lobe likely related to consolidation or atelectasis. 5. Anasarca 6. Tiny nonobstructing left renal stone. Chest Ultrasound 06/25/18 00:00 CONCLUSION: 1. Large right pleural effusion without appreciable loculation. Thoracentesis Ultrasound 06/25/18 00:00 CONCLUSION: 1. Uncomplicated right thoracentesis. Head CT 06/25/18 06:47 CONCLUSION: 1. Stable evaluation of the head. 2. No evidence of acute infarct, hemorrhage, mass or edema. . Paracentesis Ultrasound 06/29/18 00:00 CONCLUSION: 1. Uncomplicated paracentesis. TIPS 07/01/18 00:00 CONCLUSION: 1. Uncomplicated fluoroscopic guided placement of TIPS shunts from the right hepatic vein to the right portal vein, as above. PLAN: Baseline ultrasound examination in 2 weeks with surveillance ultrasound at 3 months, 6 months and one year. Abdomen X-Ray 07/06/18 11:06 CONCLUSION: Dobbhoff tube tip is noted within the expected region of the distal stomach. Chest X-Ray 07/11/18 06:00 CONCLUSION: 1. Stable tubes and lines, as above. 2. Stable right-sided chest tube without pneumothorax. 3. Slightly improved patchy airspace disease in the right lower lung zone. 4. Persistent left lower lung zone airspace disease. Physical Exam: GENERAL: On the ventilator. No distress. SKIN: Cool and dry. No generalized rash. HEAD: Atraumatic. Normocephalic. No temporal wasting, or tenderness. EYES: Erin conjunctiva. No petechia or hemorrhage. Has scleral icterus. No injection or drainage. EARS, NOSE AND THROAT: Orally intubated NECK: Ecchymoses R side where they had venipunture for TIPS CARDIOVASCULAR: Regular rate and rhythm. No murmurs, rubs or gallops heard RESPIRATORY: Bibasilar rhonchi. Cath R side with serous fluid ABDOMEN: Globular, soft, mildly distended, no reaction to palpation. Bowel sounds present and normoactive. EXTREMITIES: No clubbing, cyanosis. Has mild pedal edema. No calf tenderness. NEUROLOGICAL: Sedated PSYCHIATRIC: Unable to assess LINE: No evidence of infection Assessment and Plan - Plan Impression Leukocytosis, etiology? - ?reactive, remains elevated. - no obvious source of infection - CXR with infiltrates, sputum NF - UA ok - BC negative - pleural fluid negative - has new vascath, no other central line - C diff negative - ?part of her CLL, has lymphocyte predominance on manual diff Bilateral infiltrates - CHF likely, or ARDS Respiratory failure Eligio effusions and ascites, etiology? Known CLL, stage 0 Ascites, has liver cirrhosis on imaging - S/P TIPS Chest pain, ?etiology - ?related to TIPS Renal failure. Recommendation Monitor CBC Monitor temperature. Palliative medicine following Monitor progress
[2018-07-11] MEDS: Heparin 10,000 UNITS/10 ML Vial (for IV use) OTHER PRN (16:42)
[2018-07-11] MEDS: Albumin Human 25% Inj 100 ML IV.SIG PRN (16:42)
[2018-07-12] MEDS: Albumin Human 25% Inj 100 ML IV.SIG SCH ×2 (02:49→10:39)
[2018-07-12] MEDS: Oral Hygiene Kit OROPHARYNG SCH ×4 (03:44→23:48)
[2018-07-12 04:11] LABS: Hematocrit 24.7 % (35.0-46.0); Hemoglobin 7.9 gm/dL (11.6-15.3); Mean Corpuscular HGB Conc 32.1 % (32.0-36.0); Mean Corpuscular Hemoglobin 30.3 pg (27.0-34.0); Mean Corpuscular Volume 94.4 fL (80.0-100.0); Mean Platelet Volume 8.7 fL (7.0-11.0); Platelet Count 73 th/mm3 (150-450); Red Blood Count 2.62 mil/mm3 (4.00-5.30); Red Cell Distribution Width 18.3 % (11.6-17.2); White Blood Count 20.8 th/mm3 (4.0-11.0)
[2018-07-12 04:43] LABS: Albumin 4.8 g/dL (3.4-5.0); Anion Gap 15 meq/L (5-15); Aspartate Aminotransferase 37 U/L (15-37); Blood Urea Nitrogen 46 mg/dL (7-18); Calcium 8.8 mg/dL (8.5-10.1); Carbon Dioxide 22.6 meq/L (21.0-32.0); Chloride 106 meq/L (98-107); Glomerular Filtration Rate 11 mL/min (>89); Glucose,Random 190 mg/dL (74-106); Potassium 3.2 meq/L (3.5-5.1); Sodium 144 meq/L (136-145)
[2018-07-12 04:49] LABS: Alanine Aminotransferase 12 U/L (10-53); Alkaline Phosphatase 215 U/L (45-117); Phosphorus 2.5 mg/dL (2.5-4.9); Total Protein 6.3 g/dL (6.4-8.2)
--- NOTE | 2018-07-12 04:54 | XR ---
EXAM DATE: 07/12/2018 4:23 AM EST AGE/SEX: 72 years / Female INDICATIONS: Shortness of breath, possible pulmonary disease. CLINICAL DATA: This is the patient's subsequent encounter. Patient reports that signs and symptoms h ave been present for 1 week and indicates a pain score of Nonresponsive. MEDICAL/SURGICAL HISTORY: Asthma. Diabetes. Hypertension. Thyroidectomy. COMPARISON: [facility], CHEST 1V SINGLE AP, 07/11/2018. . FINDINGS: Stable ETT, feeding tube coursing beyond the GE junction and left IJ dialysis catheter. Right inferio r chest tube has been retracted remains in the inferior hemithorax. No significant pneumothorax. Pers istent diffuse interstitial prominence with persistent bilateral lower lung zone airspace disease. Ca rdiomediastinal contours are stable. Remainder of the exam is unchanged. CONCLUSION: 1. Right-sided chest tube has been retracted but remains in the inferior hemithorax. No pneumothorax . 2. Remaining tubes and lines are stable. 3. Persistent bilateral lower lung zone airspace disease. Electronically signed by: Lambert Aponte MD Board Certified Radiologist 07/12/2018 4:52 AM ADRIENNE Salazar
[2018-07-12] MEDS: Pantoprazole Inj 40 MG Vial IV.PUSH SCH (05:05)
[2018-07-12] MEDS: Artificial Tears Opth Drops 15 ML Bottle EACH EYE SCH ×3 (05:05→20:32)
[2018-07-12] MEDS: Insulin NovoLOG Aspart Correctional Sugar Inj SQ SCH ×4 (05:06→23:48)
[2018-07-12] MEDS: Octreotide Inj 50 MCG/ML Vial IV.PUSH SCH (05:06)
[2018-07-12] MEDS: Levothyroxine 150 MCG Tablet PO SCH (06:09)
[2018-07-12] MEDS: Chlorhexidine 0.12% Oral Kit 15 ML UDC OROPHARYNG SCH ×2 (08:04→20:32)
--- NOTE | 2018-07-12 10:08 | P.PNCC ---
Subjective Subjective Remarks/Hospital Course: This is a 72-year-old female. Admission 06/25/2008. Past medical history includes stage 0 CLL, asthma, diabetes, gout, hypertension and hypothyroidism. She initially presented to the hospital complaining of a several month history of progressive shortness of breath. This is associated orthopnea and difficulty ambulation. A dry nonproductive cough as well. No chest pain. On admission, patient was noted to have moderate ascites and a significant right pleural effusion. She received paracentesis on 06/25 5700 cc and on 06/28 5900 cc. She had a right-sided thoracentesis 1200 cc on 06/25. CT abdomen pelvis showed likely liver cirrhosis and moderate ascites. She also had a CT of the abdomen and pelvis which did not show any lymphadenopathy. She has not been febrile. She has had thoracentesis and they took out 1.2 L of fluid. 06/28 had an upper endoscopy. EGD revealed esophagitis, distal esophageal ulcer, portal hypertensive gastropathy. She started worsening renal failure and worsening leukocytosis. Due to the possibility of hepatorenal syndrome a TIPS was performed by IR 07/01. She has been on beta-ilana, diuretics and midodrine in the interim along with octreotide. Patient been pancultured which no growth today. Current levofloxacin and metronidazole. No obvious source of infection at the present time. The past couple nights patient is been in ICU. She is become more confused and will not keep her BiPAP on due to agitation. She is received 2 stenosis of lorazepam tonight. I was asked to see the patient due to worsening respiratory issues including tachypnea and altered mental status including unresponsive. PH is 7.35. PCO2 47. PO2 74. Base index -6. She is on a nonrebreather. She is intubated using 20 mg etomidate and 8.0 ET tube at 23 cm at lip. They were unable to pass an NG tube.. 07/07/18: Remains intubated sedated. Renal function is worsening creatinine close to 6 now. Remains anuric. Large right pleural effusion drained yesterday 1.4 L since pigtail chest tube placement. Currently sedated with fentanyl will wake up follows some commands 07/08/18: Patient remains intubated mildly sedated with fentanyl infusion. Remains anuric with worsening renal function. HD catheter was placed yesterday. Will initiate hemodialysis today per nephrology. Right chest tube with 700 mL output in the last 24 hours 07/09/18: Remains critical wearing ventilator support. Remains anuric hemodialysis started yesterday 2 L removed. Right pleural effusion improved with chest tube, left moderate large pleural effusion. Plan for thoracentesis and then start CPAP trials. 07/10: Patient remains intubated lightly sedated with fentanyl. Tolerate CPAP wakes up weakly following commands. Chest x-ray shows improved infiltrates. Right chest tube with 700 mL output in 24 hours. Left thoracentesis with 500 mL removed 07/11: Remains lethargic encephalopathy intermittently following commands. Oxygen requirement increased to 50% due to hypoxia. Tired out on CPAP at night. Plan for hemodialysis today attempt CPAP after hemodialysis today. WBC count trending up creatinine remains more than 5. Remains anuric 07/12: Remains sedated, orally intubated on mechanical ventilation. Tolerating tube feeds. Daily CPAP trials ongoing Objective Vital Signs / I&O: Vital Signs 07/11/18 11:41 07/11/18 12:00 07/11/18 15:33 Temperature 98.0 F Pulse Rate 68 Respiratory Rate 18 22 18 Blood Pressure Pulse Oximetry 95 93 L 98 07/11/18 16:00 07/11/18 19:50 07/11/18 20:00 Temperature 98.0 F 98.5 F Pulse Rate 69 61 67 Respiratory Rate 21 18 18 Blood Pressure 110/53 L 113/62 Pulse Oximetry 94 L 92 L 92 L 07/11/18 23:50 07/11/18 23:52 07/12/18 00:00 Temperature 98.4 F Pulse Rate 61 63 Respiratory Rate 18 18 18 Blood Pressure 105/54 L Pulse Oximetry 96 95 07/12/18 04:00 07/12/18 04:09 07/12/18 06:16 Temperature 97.6 F Pulse Rate 66 62 Respiratory Rate 18 18 Blood Pressure 125/58 L Pulse Oximetry 98 96 07/12/18 07:00 Temperature Pulse Rate Respiratory Rate 18 Blood Pressure Pulse Oximetry 96 Intake & Output 07/11/18 07/12/18 07/12/18 18:59 06:59 18:59 Intake Total 200 / 200 200 / 200 Output Total 1690 / 1690 130 / 130 Balance -1490 / -1490 70 / 70 Weight 85 kg Intake: IV 200 / 200 200 / 200 Flexbumin 25% Inj 100 ML @ 60 200 / 200 200 / 200 mls/hr IV.SIG Q8H [facility] Rx#: [id number] Output: Urine 0 / 0 Hemodialysis Amount 1500 / 1500 Chest Tube Drainage 190 / 190 130 / 130 #1 Right Mid-Axillary Chest 190 / 190 130 / 130 Other: Date of Last Bowel Movement 07/10/18 07/12/18 # Incontinent Bowel Movements 2 Result Diagrams: 07/12/18 03:09 07/12/18 03:09 Objective Remarks: - Constitutional Lying in bed critically ill anuric, hypoxemic requiring more FiO2 - Routine HEENT Exam Head: Present: normocephalic, atraumatic Eye: Present: EOMI, PERRL ENT: Present: Orotracheally intubated - Routine Neck Exam Present: supple, full ROM. Absent: JVD Bandage from tips in right neck - Routine Respiratory Exam Present: Mechanically ventilated, crackles, distant breath sounds, diminished air movement. R pigtail catheter in place - Routine Cardiovascular Exam Present: RRR, S1, S2. Absent: murmur - Routine Abdominal Exam Present: soft, normoactive bowel sounds - Routine Skin Exam Present: intact, dry. Absent: cyanosis, erythema - Routine Neurological Exam Intubated sedated wakes up follows commands x4, but weakly, remains lethargic. No focal deficits Assessment and Plan - Assessment and Plan Plan: Neuro/Psych: Acute metabolic encephalopathy CO2 narcosis Currently on fentanyl for sedation/analgesia while intubated. Discontinue fentanyl Goal of RASS -1. Daily sedation vacation Ammonia level <10 CT brain 06/25 revealed no acute intracranial findings On lightening sedation patient continues to follow commands intermittently, remains lethargic CV: Essential hypertension Bradycardia Holding nadolol 20 mg daily hold due to bradycardia, continue midodrine 10 mg 3 times daily Hemodialysis started for fluid removal no response to IV Lasix Echocardiogram -EF 55-60%. Normal LV systolic function. Trace mitral valve regurgitation. Mitral annular calcification is present. Cannot rule out a small mobile echodensity on the left ventricular side of the anterior leaflet towards the left ventricular outflow tract in parasternal views. Clinical correlation recommended there is trace tricuspid valve regurgitation. The estimated pulmonary arterial pressure is 38 mmHg. Blood cultures have been negative Resp: Acute hypoxemic respiratory failure Right pleural effusion status post thoracentesis 06/25 -1200 cc, right pigtail chest tube placement 07/06/2018 PRVC ventilation. Head of bed at 30 degrees. Daily CPAP trials FiO2 requirement increased today after hemodialysis attempt CPAP trial Ventilator bundle. Albuterol/ipratropium aerosols every 4 hours with albuterol every 2 hours as needed dyspnea Right pigtail chest tube placed 07/06/2018, with 1.4 L drained initially. 790 mL in last 24 hours output Status post left thoracentesis 07/09/2018 with 500 mL removed GI: Portal hypertensive gastropathy LA class B esophagitis Distal esophageal ulcer Ascites -paracentesis 5700 cc 06/25. 5900 cc 06/28 Status post TIPS 07/01 for possible hepatorenal syndrome CT abdomen/pelvis 06/25 revealed cirrhotic type liver. Left-sided hydronephrosis. Moderate ascites EGD 06/28 revealed LA class B esophagitis. 7 mm distal esophageal ulcer. Portal hypertensive gastropathy.H. pylori negative. Continue midodrine. On octreotide 50 mcg IV every 8 hours for portal hypertension gastropathy, HRS Pantoprazole 40 mg IV daily. Discontinued Aldactone due to worsening renal failure Being followed by GI. Negative CA-19-9, alpha-fetoprotein, beta-hCG. Negative hepatitis panel Endo: Diabetes mellitus Hypothyroidism Gout Sliding scale insulin Accu-Cheks to maintain euglycemia/low every 6 hours aspart insulin Holding glipizide 5 mg daily/home medication Patient is on levothyroxine 300 mcg daily. Patient is on allopurinol at home. Hold due to renal failure Renal: Acute kidney failure Monitor urine output. Accurate I's and O's. Currently remains anuric. Hemodialysis catheter placed, started hemodialysis 07/08/2018 Can discontinue Madsen if okay with nephrology Avoid nephrotoxic medication No hydronephrosis on CT abdomen/pelvis on admission Nephrology Dr. Busby Heme: CLL [id number] score 0 Leukocytosis Normocytic anemia Followed by Dr. Flores/oncology. Follow-up on coags, CBC Currently no indication for transfusion of blood products at this time. ID: Followed by infectious disease. Currently levofloxacin. metronidazole has been discontinued Peritoneal and pleural fluid 06/25 no growth today. Pleural fluid no growth to date F/U blood cultures x2, sputum, UA and influenza a and B now Access-utilize peripheral IV. Central line if indicated Prophylaxis -GI -pantoprazole -DVT -SCDs/heparin subcu Remains critically ill with multiorgan failure renal failure persist patient is anuric. Respiratory failure slightly worsened FiO2 requirement increased to 50% . Hemodialysis with fluid removal if oxygenation improves will attempt CPAP trial. Patient is at acute risk of decompensation and at this time due to multiorgan failure Consult 35 minutes critical care time
[2018-07-12] MEDS: Heparin - SQ 10,000 UNITS/ML Vial SQ SCH ×2 (10:38→20:32)
--- NOTE | 2018-07-12 11:25 | P.PNNP ---
Subjective Interval history: Failed weaning trial, apparently had apneic spell. Very little urine output. TF off. Dialyzed yesterday. Physical Exam Vital signs: Vital Signs 07/11/18 11:41 07/11/18 12:00 07/11/18 15:33 Temperature 98.0 F Pulse Rate 68 Respiratory Rate 18 22 18 Blood Pressure Pulse Oximetry 95 93 L 98 07/11/18 16:00 07/11/18 19:50 07/11/18 20:00 Temperature 98.0 F 98.5 F Pulse Rate 69 61 67 Respiratory Rate 21 18 18 Blood Pressure 110/53 L 113/62 Pulse Oximetry 94 L 92 L 92 L 07/11/18 23:50 07/11/18 23:52 07/12/18 00:00 Temperature 98.4 F Pulse Rate 61 63 Respiratory Rate 18 18 18 Blood Pressure 105/54 L Pulse Oximetry 96 95 07/12/18 04:00 07/12/18 04:09 07/12/18 06:16 Temperature 97.6 F Pulse Rate 66 62 Respiratory Rate 18 18 Blood Pressure 125/58 L Pulse Oximetry 98 96 07/12/18 07:00 07/12/18 08:00 07/12/18 10:31 Temperature 99.2 F Pulse Rate 53 L Respiratory Rate 18 18 18 Blood Pressure 111/59 L Pulse Oximetry 96 95 96 Intake & Output 07/11/18 07/12/18 07/12/18 18:59 06:59 18:59 Intake Total 200 / 200 200 / 200 Output Total 1690 / 1690 130 / 130 Balance -1490 / -1490 70 / 70 Weight 85 kg Intake: IV 200 / 200 200 / 200 Flexbumin 25% Inj 100 ML @ 60 200 / 200 200 / 200 mls/hr IV.SIG Q8H [facility] Rx#: [id number] Output: Urine 0 / 0 Hemodialysis Amount 1500 / 1500 Chest Tube Drainage 190 / 190 130 / 130 #1 Right Mid-Axillary Chest 190 / 190 130 / 130 Other: Date of Last Bowel Movement 07/10/18 07/12/18 07/12/18 # Incontinent Bowel Movements 2 Narrative: GENERAL: Chronically ill appearing. SKIN: Pale. CARDIOVASCULAR: Regular rate and rhythm. RESPIRATORY: Mechanically ventilated, diminished air movement. Chest tube in place with yellow drainage. ABDOMEN: Soft, non-tender. NEUROLOGICAL: Responds to pain. - Urinary Catheter Management Straight Cath placed during this visit: yes, but has since been removed by the nurse Reason for continuing: Not indwelling catheter Insertion date: 07/07/18 Insertion time: 18:00 Removal date: 07/07/18 Removal time: 18:20 Assessment and Plan - Assessment (1) Acute on chronic kidney failure Code(s): N17.9 - Acute kidney failure, unspecified; N18.9 - Chronic kidney disease, unspecified Status: Acute Plan: It is suspected patient has Hepatorenal syndrome. Patient is not a good candidate for dialysis, patient and family previously informed. wanted all aggressive measures. Dialysis will not change her outcome. She may be terminally ill. (2) Diabetes Code(s): E11.9 - Type 2 diabetes mellitus without complications Status: Acute Plan: Insulin coverage to maintain glucose levels between 140 and 180. (3) Abdominal distension Code(s): R14.0 - Abdominal distension (gaseous) Status: Acute Plan: s/p paracentesis x2. (4) Cirrhosis Code(s): K74.60 - Unspecified cirrhosis of liver Status: Acute Plan: GI has been on the case. - Plan S/P TIPS procedure 07/01/18
[2018-07-12] MEDS ORDERED: Midazolam Inj 5 MG/ML 1 ML Vial ONE (20:20)
[2018-07-12] MEDS ORDERED: Midazolam Inj 5 MG/ML 1 ML Vial IV.PUSH ONE (21:00)
[2018-07-12] MEDS ORDERED: fentaNYL 10 mcg/mL Premix Drip 2,500 MCG/250 ML BAG IV.SIG PRN (21:57)
[2018-07-13] MEDS: Pantoprazole Inj 40 MG Vial IV.PUSH SCH (05:34)
[2018-07-13] MEDS: Oral Hygiene Kit OROPHARYNG SCH ×3 (05:34→15:00)
[2018-07-13] MEDS: Artificial Tears Opth Drops 15 ML Bottle EACH EYE SCH ×3 (05:34→21:03)
[2018-07-13] MEDS: Insulin NovoLOG Aspart Correctional Sugar Inj SQ SCH ×4 (05:35→23:47)
[2018-07-13] MEDS: Levothyroxine 150 MCG Tablet PO SCH (06:00)
[2018-07-13] MEDS: Chlorhexidine 0.12% Oral Kit 15 ML UDC OROPHARYNG SCH ×2 (07:12→21:04)
[2018-07-13] MEDS: Heparin - SQ 10,000 UNITS/ML Vial SQ SCH ×2 (08:09→21:04)
[2018-07-13 09:28] LABS: Baso # (Auto) 0.2 th/mm3 (0.0-0.2); Baso % (Auto) 0.7 % (0.0-2.0); Eos # (Auto) 0.4 th/mm3 (0.0-0.4); Eos % (Auto) 1.1 % (0.0-4.0); Hematocrit 26.5 % (35.0-46.0); Hemoglobin 8.7 gm/dL (11.6-15.3); Lymph # (Auto) 19.4 th/mm3 (1.0-4.8); Lymph % (Auto) 59.2 % (9.0-44.0); Mean Corpuscular HGB Conc 32.7 % (32.0-36.0); Mean Corpuscular Hemoglobin 31.8 pg (27.0-34.0); Mean Corpuscular Volume 97.3 fL (80.0-100.0); Mean Platelet Volume 9.2 fL (7.0-11.0); Mono # (Auto) 1.4 th/mm3 (0.0-0.9); Mono % (Auto) 4.3 % (0.0-8.0); Neut # (Auto) 11.4 th/mm3 (1.8-7.7); Neut % (Auto) 34.7 % (16.0-70.0); Platelet Count 79 th/mm3 (150-450); Red Blood Count 2.72 mil/mm3 (4.00-5.30); Red Cell Distribution Width 21.4 % (11.6-17.2); White Blood Count 32.8 th/mm3 (4.0-11.0)
[2018-07-13 09:44] LABS: Calcium 9.1 mg/dL (8.5-10.1); Carbon Dioxide 18.6 meq/L (21.0-32.0); Potassium 3.5 meq/L (3.5-5.1)
--- NOTE | 2018-07-13 10:32 | P.PNNP ---
Subjective Interval history: Patient was seen, no distress, remains sedated, orally intubated on mechanical ventilation. Patient will be getting dialysis tomorrow. <Des Arora - Last Filed: 07/13/18 10:28> Physical Exam Vital signs: Vital Signs 07/12/18 10:31 07/12/18 12:00 07/12/18 13:14 Temperature 98.6 F Pulse Rate 53 L Respiratory Rate 18 18 18 Blood Pressure 121/55 L Pulse Oximetry 96 96 96 07/12/18 14:34 07/12/18 14:47 07/12/18 15:00 Temperature Pulse Rate 64 64 63 Respiratory Rate 23 23 28 H Blood Pressure 128/59 L 134/61 Pulse Oximetry 94 L 93 L 98 07/12/18 15:01 07/12/18 15:15 07/12/18 15:30 Temperature Pulse Rate 63 61 64 Respiratory Rate 31 H 19 21 Blood Pressure 127/77 113/56 L 127/59 L Pulse Oximetry 96 92 L 97 07/12/18 15:45 07/12/18 16:00 07/12/18 16:15 Temperature 98.4 F Pulse Rate 65 63 63 Respiratory Rate 23 20 19 Blood Pressure 130/61 129/59 L 118/57 L Pulse Oximetry 97 97 94 L 07/12/18 16:16 07/12/18 16:30 07/12/18 16:45 Temperature Pulse Rate 64 63 Respiratory Rate 19 22 18 Blood Pressure 117/59 L 124/57 L Pulse Oximetry 96 97 96 07/12/18 17:00 07/12/18 17:15 07/12/18 17:30 Temperature Pulse Rate 62 62 63 Respiratory Rate 18 19 19 Blood Pressure 120/60 117/56 L 116/56 L Pulse Oximetry 95 97 94 L 07/12/18 17:45 07/12/18 18:00 07/12/18 18:01 Temperature Pulse Rate 63 64 64 Respiratory Rate 19 22 36 H Blood Pressure 113/56 L 153/91 H Pulse Oximetry 97 96 87 L 07/12/18 18:16 07/12/18 18:30 07/12/18 18:45 Temperature Pulse Rate 63 63 65 Respiratory Rate 19 21 21 Blood Pressure 105/67 118/57 L 128/60 Pulse Oximetry 93 L 95 95 07/12/18 19:00 07/12/18 19:01 07/12/18 19:06 Temperature Pulse Rate 65 65 64 Respiratory Rate 19 20 22 Blood Pressure 170/100 H 123/56 L Pulse Oximetry 96 97 95 07/12/18 19:31 07/12/18 20:00 07/12/18 20:03 Temperature Pulse Rate 62 61 62 Respiratory Rate 17 24 25 H Blood Pressure 118/56 L 118/57 L Pulse Oximetry 97 100 07/12/18 20:25 07/12/18 20:30 07/12/18 21:00 Temperature Pulse Rate 58 L 53 L Respiratory Rate 18 18 18 Blood Pressure 110/53 L 93/53 L Pulse Oximetry 98 100 98 07/12/18 21:30 07/12/18 22:00 07/12/18 22:01 Temperature Pulse Rate 55 L 57 L 58 L Respiratory Rate 18 21 28 H Blood Pressure 99/51 L 115/56 L Pulse Oximetry 97 100 100 07/12/18 22:31 07/12/18 23:00 07/12/18 23:31 Temperature Pulse Rate 59 L 59 L 59 L Respiratory Rate 23 20 21 Blood Pressure 130/61 137/60 122/57 L Pulse Oximetry 99 100 100 07/12/18 23:40 07/13/18 00:00 07/13/18 00:31 Temperature Pulse Rate 59 L 59 L Respiratory Rate 18 19 26 H Blood Pressure 128/60 124/59 L Pulse Oximetry 97 100 100 07/13/18 01:00 07/13/18 01:30 07/13/18 02:00 Temperature Pulse Rate 60 57 L 60 Respiratory Rate 25 H 23 20 Blood Pressure 134/61 114/56 L 120/61 Pulse Oximetry 99 99 99 07/13/18 02:30 07/13/18 02:32 07/13/18 03:00 Temperature Pulse Rate 50 L 56 L 58 L Respiratory Rate 18 19 23 Blood Pressure 82/45 L 99/52 L Pulse Oximetry 98 100 100 07/13/18 03:01 07/13/18 03:31 07/13/18 04:00 Temperature Pulse Rate 57 L 49 L 57 L Respiratory Rate 21 18 26 H Blood Pressure 146/60 H 84/49 L Pulse Oximetry 100 97 100 07/13/18 04:01 07/13/18 04:12 07/13/18 07:48 Temperature Pulse Rate 57 L Respiratory Rate 20 18 18 Blood Pressure 96/54 L Pulse Oximetry 100 97 99 07/13/18 08:00 Temperature 98.3 F Pulse Rate 57 L Respiratory Rate 24 Blood Pressure 126/59 L Pulse Oximetry 100 Intake & Output 07/12/18 07/13/18 07/13/18 18:59 06:59 18:59 Intake Total 100 / 100 60 / 60 Output Total 20 / 20 250 / 250 Balance 80 / 80 -190 / -190 Weight 83 kg Intake: IV 100 / 100 Flexbumin 25% Inj 100 ML @ 60 100 / 100 mls/hr IV.SIG Q8H [facility] Rx#: [id number] Tube Feeding 0 / 0 Water Bolus Amount 60 / 60 Output: Urine 0 / 0 0 / 0 Chest Tube Drainage 20 / 20 250 / 250 #1 Right Mid-Axillary Chest 20 / 250 / 250 Other: Date of Last Bowel Movement 07/12/18 07/13/18 07/13/18 # Incontinent Bowel Movements 1 1 Narrative: GENERAL: Chronically ill appearing. SKIN: Pale. CARDIOVASCULAR: Regular rate and rhythm. RESPIRATORY: Mechanically ventilated. Wheezing and Rhonchi heard. ABDOMEN: Soft, non-tender. NEUROLOGICAL: Responds to pain. - Urinary Catheter Management Straight Cath placed during this visit: yes, but has since been removed by the nurse Reason for continuing: Not indwelling catheter Insertion date: 07/07/18 Insertion time: 18:00 Removal date: 07/07/18 Removal time: 18:20 <Des Arora - Last Filed: 07/13/18 10:28> Vital signs: Vital Signs 07/13/18 16:00 07/13/18 17:31 07/13/18 19:20 Temperature 99.5 F Pulse Rate 69 Respiratory Rate 13 12 12 Blood Pressure 128/63 Pulse Oximetry 94 L 94 L 95 07/13/18 20:00 07/13/18 22:15 07/13/18 22:30 Temperature 98.9 F Pulse Rate 64 54 L 54 L Respiratory Rate 15 13 12 Blood Pressure 130/66 109/57 L Pulse Oximetry 95 96 96 07/13/18 22:45 07/13/18 23:00 07/13/18 23:15 Temperature Pulse Rate 55 L 54 L 60 Respiratory Rate 12 13 14 Blood Pressure 113/57 L 114/60 118/64 Pulse Oximetry 96 97 97 07/13/18 23:30 07/13/18 23:42 07/13/18 23:45 Temperature Pulse Rate 55 L 60 Respiratory Rate 12 12 12 Blood Pressure 116/61 115/57 L Pulse Oximetry 97 97 94 L 07/14/18 00:00 07/14/18 00:15 07/14/18 00:30 Temperature 98.2 F Pulse Rate 58 L 56 L 54 L Respiratory Rate 13 13 12 Blood Pressure 120/60 120/58 L 120/60 Pulse Oximetry 93 L 96 96 07/14/18 00:45 07/14/18 01:00 07/14/18 01:15 Temperature Pulse Rate 56 L 53 L 52 L Respiratory Rate 13 12 13 Blood Pressure 117/58 L 117/56 L 109/59 L Pulse Oximetry 97 97 97 07/14/18 01:30 07/14/18 01:45 07/14/18 02:00 Temperature Pulse Rate 52 L 53 L 54 L Respiratory Rate 12 12 13 Blood Pressure 117/58 L 110/57 L 113/60 Pulse Oximetry 98 98 98 07/14/18 02:15 07/14/18 02:30 07/14/18 02:45 Temperature Pulse Rate 52 L 51 L 56 L Respiratory Rate 13 12 14 Blood Pressure 113/56 L 114/59 L 116/56 L Pulse Oximetry 98 98 97 07/14/18 03:00 07/14/18 03:03 07/14/18 03:15 Temperature Pulse Rate 62 61 58 L Respiratory Rate 24 24 13 Blood Pressure 131/60 132/60 Pulse Oximetry 98 98 98 07/14/18 03:30 07/14/18 03:45 07/14/18 04:00 Temperature Pulse Rate 60 54 L 62 Respiratory Rate 17 13 14 Blood Pressure 132/67 120/60 122/60 Pulse Oximetry 99 98 100 07/14/18 04:10 07/14/18 04:15 07/14/18 07:13 Temperature 98.9 F Pulse Rate 53 L Respiratory Rate 13 12 13 Blood Pressure 108/56 L Pulse Oximetry 100 95 99 07/14/18 08:00 07/14/18 11:50 Temperature 98.3 F Pulse Rate 57 L Respiratory Rate 14 17 Blood Pressure 110/56 L Pulse Oximetry 97 98 Intake & Output 07/13/18 07/14/18 07/14/18 18:59 06:59 18:59 Intake Total 150 / 150 180 / 180 300 / 300 Output Total 120 / 120 250 / 250 500 / 500 Balance 30 / 30 -70 / -70 -200 / -200 Weight 83.5 kg Intake: IV 50 / 50 300 / 300 Flexbumin 25% Inj 50 ML @ 60 50 / 50 mls/hr IV.SIG ONCE ONE Rx#: [id number] Flexbumin 25% Inj 100 ML @ 60 300 / 300 mls/hr IV.SIG WITH DIALYSIS PRN Rx#:[id number] Tube Feeding 0 / 0 120 / 120 Water Bolus Amount 100 / 100 60 / 60 Output: Urine 0 / 0 Hemodialysis Amount 500 / 500 Chest Tube Drainage 120 / 120 250 / 250 #1 Right Mid-Axillary Chest 120 / 120 250 / 250 Other: Date of Last Bowel Movement 07/13/18 07/13/18 07/13/18 # Incontinent Bowel Movements 0 - Urinary Catheter Management Straight Cath placed during this visit: no <Papi Busby - Last Filed: 07/14/18 14:39> Assessment and Plan - Assessment (1) Acute on chronic kidney failure Code(s): N17.9 - Acute kidney failure, unspecified; N18.9 - Chronic kidney disease, unspecified Status: Acute Plan: 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 Patient is not a good candidate for dialysis, patient and family previously informed. wanted all aggressive measures. Dialysis will not change her outcome. She may be terminally ill. Patient to be dialyzed tomorrow. Patient is anuric. (2) Diabetes Code(s): E11.9 - Type 2 diabetes mellitus without complications Status: Acute Plan: Insulin coverage to maintain glucose levels between 140 and 180. (3) Abdominal distension Code(s): R14.0 - Abdominal distension (gaseous) Status: Acute Plan: s/p paracentesis x2. (4) Cirrhosis Code(s): K74.60 - Unspecified cirrhosis of liver Status: Acute Plan: GI has been on the case. - Plan S/P TIPS procedure 07/01/18 <Des Arora - Last Filed: 07/13/18 10:28> - Assessment (1) Acute on chronic kidney failure Code(s): N17.9 - Acute kidney failure, unspecified; N18.9 - Chronic kidney disease, unspecified Status: Acute (2) Diabetes Code(s): E11.9 - Type 2 diabetes mellitus without complications Status: Acute (3) Abdominal distension Code(s): R14.0 - Abdominal distension (gaseous) Status: Acute (4) Cirrhosis Code(s): K74.60 - Unspecified cirrhosis of liver Status: Acute - Attending Attestation patient was seen and examined. Poor prognosis continues. I do not recommend continuation of dialysis. <Papi Busby - Last Filed: 07/14/18 14:39>
--- NOTE | 2018-07-13 12:08 | P.PNPAL ---
Reason for Visit Reason for visit: a. To assist with evaluation and management of symptoms including: Shortness of breath, pain, debility b. To assist medical decision maker(s) with: better understanding of current medical conditions; weighing benefits/burdens of medical treatment options; making medical treatment decisions. Subjective Subjective/Interval History: Follow-up medically necessary for symptom management and family support. Patient remains on MICU. Remains intubated, no sedation at this time. FIO2 50% . Daily spontaneous breathing trials. Patient following simple commands, eye open. Patient is not showing any signs of pain at this time. Mouthing words, appears to be saying, "I want water". Tube feeds on hold, report from bedside RN that patient has been vomiting. She also has a fever today. Persistent leukocytosis. ID following. Patient remains anuric. Nephrology following. Ongoing hemodialysis with no significant improvement in renal function. Physical therapy following. Case discussed with bedside RN. . Family/Friend Interactions: No family at bedside. . Advance Directives Living Will: Never completed Health Care Surrogate: Copy in medical record Durable Power of Proposal Engineer: Never completed Advance Directives Date on File: 06/29/18 Health Care Surrogate Name and Number: HCS: Clarence Sylvester [phone] Alt: Bharat Willard Documented care wishes:: Never completed living will. . Objective Vital Signs: Vital Signs 07/12/18 13:14 07/12/18 14:34 07/12/18 14:47 Temperature Pulse Rate 64 64 Respiratory Rate 18 23 23 Blood Pressure 128/59 L 134/61 Pulse Oximetry 96 94 L 93 L 07/12/18 15:00 07/12/18 15:01 07/12/18 15:15 Temperature Pulse Rate 63 63 61 Respiratory Rate 28 H 31 H 19 Blood Pressure 127/77 113/56 L Pulse Oximetry 98 96 92 L 07/12/18 15:30 07/12/18 15:45 07/12/18 16:00 Temperature 98.4 F Pulse Rate 64 65 63 Respiratory Rate 21 23 20 Blood Pressure 127/59 L 130/61 129/59 L Pulse Oximetry 97 97 97 07/12/18 16:15 07/12/18 16:16 07/12/18 16:30 Temperature Pulse Rate 63 64 Respiratory Rate 19 19 22 Blood Pressure 118/57 L 117/59 L Pulse Oximetry 94 L 96 97 07/12/18 16:45 07/12/18 17:00 07/12/18 17:15 Temperature Pulse Rate 63 62 62 Respiratory Rate 18 18 19 Blood Pressure 124/57 L 120/60 117/56 L Pulse Oximetry 96 95 97 07/12/18 17:30 07/12/18 17:45 07/12/18 18:00 Temperature Pulse Rate 63 63 64 Respiratory Rate 19 19 22 Blood Pressure 116/56 L 113/56 L Pulse Oximetry 94 L 97 96 07/12/18 18:01 07/12/18 18:16 07/12/18 18:30 Temperature Pulse Rate 64 63 63 Respiratory Rate 36 H 19 21 Blood Pressure 153/91 H 105/67 118/57 L Pulse Oximetry 87 L 93 L 95 07/12/18 18:45 07/12/18 19:00 07/12/18 19:01 Temperature Pulse Rate 65 65 65 Respiratory Rate 21 19 20 Blood Pressure 128/60 170/100 H Pulse Oximetry 95 96 97 07/12/18 19:06 07/12/18 19:31 07/12/18 20:00 Temperature Pulse Rate 64 62 61 Respiratory Rate 22 17 24 Blood Pressure 123/56 L 118/56 L Pulse Oximetry 95 97 100 07/12/18 20:03 07/12/18 20:25 07/12/18 20:30 Temperature Pulse Rate 62 58 L Respiratory Rate 25 H 18 18 Blood Pressure 118/57 L 110/53 L Pulse Oximetry 98 100 07/12/18 21:00 07/12/18 21:30 07/12/18 22:00 Temperature Pulse Rate 53 L 55 L 57 L Respiratory Rate 18 18 21 Blood Pressure 93/53 L 99/51 L Pulse Oximetry 98 97 100 07/12/18 22:01 07/12/18 22:31 07/12/18 23:00 Temperature Pulse Rate 58 L 59 L 59 L Respiratory Rate 28 H 23 20 Blood Pressure 115/56 L 130/61 137/60 Pulse Oximetry 100 99 100 07/12/18 23:31 07/12/18 23:40 07/13/18 00:00 Temperature Pulse Rate 59 L 59 L Respiratory Rate 21 18 19 Blood Pressure 122/57 L 128/60 Pulse Oximetry 100 97 100 07/13/18 00:31 07/13/18 01:00 07/13/18 01:30 Temperature Pulse Rate 59 L 60 57 L Respiratory Rate 26 H 25 H 23 Blood Pressure 124/59 L 134/61 114/56 L Pulse Oximetry 100 99 99 07/13/18 02:00 07/13/18 02:30 07/13/18 02:32 Temperature Pulse Rate 60 50 L 56 L Respiratory Rate 20 18 19 Blood Pressure 120/61 82/45 L 99/52 L Pulse Oximetry 99 98 100 07/13/18 03:00 07/13/18 03:01 07/13/18 03:31 Temperature Pulse Rate 58 L 57 L 49 L Respiratory Rate 23 21 18 Blood Pressure 146/60 H 84/49 L Pulse Oximetry 100 100 97 07/13/18 04:00 07/13/18 04:01 07/13/18 04:12 Temperature Pulse Rate 57 L 57 L Respiratory Rate 26 H 20 18 Blood Pressure 96/54 L Pulse Oximetry 100 100 97 07/13/18 07:48 07/13/18 08:00 07/13/18 10:26 Temperature 98.3 F Pulse Rate 57 L Respiratory Rate 18 24 15 Blood Pressure 126/59 L Pulse Oximetry 99 100 99 07/13/18 10:28 Temperature Pulse Rate Respiratory Rate 14 Blood Pressure Pulse Oximetry 99 Intake & Output 07/12/18 07/13/18 07/13/18 18:59 06:59 18:59 Intake Total 100 / 100 60 / 60 Output Total 20 / 20 250 / 250 Balance 80 / 80 -190 / -190 Weight 83 kg Intake: IV 100 / 100 Flexbumin 25% Inj 100 ML @ 60 100 / 100 mls/hr IV.SIG Q8H [facility] Rx#: [id number] Tube Feeding 0 / 0 Water Bolus Amount 60 / 60 Output: Urine 0 / 0 0 / 0 Chest Tube Drainage 20 / 20 250 / 250 #1 Right Mid-Axillary Chest 20 / 20 250 / 250 Other: Date of Last Bowel Movement 07/12/18 07/13/18 07/13/18 # Incontinent Bowel Movements 1 1 Physical Exam: CONSTITUTIONAL/GENERAL: This is a chronically ill looking elderly patient, intubated and sedated.. TUBES/LINES/DRAINS: PIV, ETT, Madsen catheter, Dobbhoff catheter, Vas cath SKIN: Pale. Slightly jaundiced. Ecchymoses on upper extremities. Surgical incision to right IJ with a dressing on. HEAD: Atraumatic. Normocephalic. EYES: Pupils equal and reactive to light. Fundi not examined. ENT: Nose without bleeding or purulent drainage. Edentulous. ETT NECK: Trachea midline. Supple, nontender. CARDIOVASCULAR: S1, S2 normal. No JVD. Peripheral pulses symmetric. RESPIRATORY/CHEST: Symmetric. Diminished breath sounds right pigtail chest tube to suction. No wheezes, rales, or rhonchi. GASTROINTESTINAL: Abdomen soft, non-tender, distended. No guarding. Hypoactive bowel sounds.Dobbhoff catheter clamped. GENITOURINARY: Without palpable bladder distension. MUSCULOSKELETAL: Extremities without clubbing, cyanosis, or edema. No mottling or clubbing. LYMPHATICS: Did not assess NEUROLOGICAL: Intubated. PSYCHIATRIC: Unable to assess Diagnostic Tests Laboratory: Laboratory Results - last 72 hr 07/10/18 07/10/18 07/11/18 17:34 23:40 04:59 WBC 36.4 H RBC 2.89 L Hgb 8.8 L Hct 27.1 L MCV 93.6 MCH 30.4 MCHC 32.5 RDW 19.2 H Plt Count 91 L MPV 8.6 Prelim Diff (Auto) Neut % (Auto) Lymph % (Auto) [place] % (Auto) Eos % (Auto) Baso % (Auto) Neut # (Auto) Lymph # (Auto) [place] # (Auto) Eos # (Auto) Baso # (Auto) Differential Comment Sodium Potassium Chloride Carbon Dioxide Anion Gap BUN Creatinine Estimated GFR POC Glucose 176 H 230 H Random Glucose Calcium Phosphorus Magnesium Total Bilirubin AST ALT Alkaline Phosphatase Total Protein Albumin 07/11/18 07/11/18 07/11/18 04:59 05:28 11:31 WBC RBC Hgb Hct MCV MCH MCHC RDW Plt Count MPV Prelim Diff (Auto) Neut % (Auto) Lymph % (Auto) [place] % (Auto) Eos % (Auto) Baso % (Auto) Neut # (Auto) Lymph # (Auto) [place] # (Auto) Eos # (Auto) Baso # (Auto) Differential Comment Sodium 143 Potassium 3.6 Chloride 105 Carbon Dioxide 21.3 Anion Gap 17 H BUN 67 H Creatinine 5.28 H Estimated GFR 8 L POC Glucose 212 H 177 H Random Glucose 206 H Calcium 9.1 Phosphorus 3.6 Magnesium Total Bilirubin 4.8 H AST 53 H ALT 16 Alkaline Phosphatase 293 H Total Protein 6.3 L Albumin 4.8 07/11/18 07/11/18 07/12/18 17:06 23:26 03:09 WBC 20.8 H RBC 2.62 L Hgb 7.9 L Hct 24.7 L MCV 94.4 MCH 30.3 MCHC 32.1 RDW 18.3 H Plt Count 73 L MPV 8.7 Prelim Diff (Auto) Neut % (Auto) Lymph % (Auto) [place] % (Auto) Eos % (Auto) Baso % (Auto) Neut # (Auto) Lymph # (Auto) [place] # (Auto) Eos # (Auto) Baso # (Auto) Differential Comment Sodium Potassium Chloride Carbon Dioxide Anion Gap BUN Creatinine Estimated GFR POC Glucose 139 H 171 H Random Glucose Calcium Phosphorus Magnesium Total Bilirubin AST ALT Alkaline Phosphatase Total Protein Albumin 07/12/18 07/12/18 07/12/18 03:09 05:03 12:01 WBC RBC Hgb Hct MCV MCH MCHC RDW Plt Count MPV Prelim Diff (Auto) Neut % (Auto) Lymph % (Auto) [place] % (Auto) Eos % (Auto) Baso % (Auto) Neut # (Auto) Lymph # (Auto) [place] # (Auto) Eos # (Auto) Baso # (Auto) Differential Comment Sodium 144 Potassium 3.2 L Chloride 106 Carbon Dioxide 22.6 Anion Gap 15 BUN 46 H Creatinine 4.11 H Estimated GFR 11 L POC Glucose 196 H 192 H Random Glucose 190 H Calcium 8.8 Phosphorus 2.5 D Magnesium 2.0 Total Bilirubin 4.5 H AST 37 ALT 12 Alkaline Phosphatase 215 H Total Protein 6.3 L Albumin 4.8 07/12/18 07/12/18 07/13/18 17:43 23:45 04:06 WBC RBC Hgb Hct MCV MCH MCHC RDW Plt Count MPV Prelim Diff (Auto) Neut % (Auto) Lymph % (Auto) [place] % (Auto) Eos % (Auto) Baso % (Auto) Neut # (Auto) Lymph # (Auto) [place] # (Auto) Eos # (Auto) Baso # (Auto) Differential Comment Sodium Potassium Chloride Carbon Dioxide Anion Gap BUN Creatinine Estimated GFR POC Glucose 170 H 163 H Random Glucose Calcium Phosphorus 2.7 Magnesium Total Bilirubin AST ALT Alkaline Phosphatase Total Protein Albumin 07/13/18 07/13/18 07/13/18 05:11 09:02 09:02 WBC 32.8 H RBC 2.72 L Hgb 8.7 L Hct 26.5 L MCV 97.3 MCH 31.8 MCHC 32.7 RDW 21.4 H D Plt Count 79 L MPV 9.2 Prelim Diff (Auto) Slide review pending Neut % (Auto) 34.7 Lymph % (Auto) 59.2 H [place] % (Auto) 4.3 Eos % (Auto) 1.1 Baso % (Auto) 0.7 Neut # (Auto) 11.4 H Lymph # (Auto) 19.4 H [place] # (Auto) 1.4 H Eos # (Auto) 0.4 Baso # (Auto) 0.2 Differential Comment . Sodium 142 Potassium 3.5 Chloride 106 Carbon Dioxide 18.6 L Anion Gap 17 H BUN 64 H Creatinine 5.33 H Estimated GFR 8 L POC Glucose 170 H Random Glucose 169 H Calcium 9.1 Phosphorus Magnesium Total Bilirubin AST ALT Alkaline Phosphatase Total Protein Albumin 07/13/18 11:39 WBC RBC Hgb Hct MCV MCH MCHC RDW Plt Count MPV Prelim Diff (Auto) Neut % (Auto) Lymph % (Auto) [place] % (Auto) Eos % (Auto) Baso % (Auto) Neut # (Auto) Lymph # (Auto) [place] # (Auto) Eos # (Auto) Baso # (Auto) Differential Comment Sodium Potassium Chloride Carbon Dioxide Anion Gap BUN Creatinine Estimated GFR POC Glucose 178 H Random Glucose Calcium Phosphorus Magnesium Total Bilirubin AST ALT Alkaline Phosphatase Total Protein Albumin Result Diagrams: 07/13/18 09:02 07/13/18 09:02 Microbiology: Microbiology 07/09/18 11:20 Gram Stain - Final Fluid - Pleural fluid Body Fluid Culture - Final No growth in 72 hours (aerobically and anaerobically) 07/06/18 05:15 Aerobic Blood Culture - Final Blood - Peripheral No growth in 5 days Anaerobic Blood Culture - Final No growth in 5 days 07/06/18 05:20 Aerobic Blood Culture - Final Blood - Peripheral No growth in 5 days Anaerobic Blood Culture - Final No growth in 5 days Imaging: Abdomen Ultrasound 06/25/18 00:00 CONCLUSION: 1. Moderate ascites 2. Hepatic cirrhosis Abdomen/Pelvis CT 06/25/18 00:00 CONCLUSION: 1. Suspected cirrhotic liver. 2. Mild to moderate amount of ascites. 3. Bilateral pleural effusions being mild on the right and minimal on the left. 4. Increased density at the inferior right middle lobe and right lower lobe likely related to consolidation or atelectasis. 5. Anasarca 6. Tiny nonobstructing left renal stone. Chest Ultrasound 06/25/18 00:00 CONCLUSION: 1. Large right pleural effusion without appreciable loculation. Thoracentesis Ultrasound 06/25/18 00:00 CONCLUSION: 1. Uncomplicated right thoracentesis. Head CT 06/25/18 06:47 CONCLUSION: 1. Stable evaluation of the head. 2. No evidence of acute infarct, hemorrhage, mass or edema. . Paracentesis Ultrasound 06/29/18 00:00 CONCLUSION: 1. Uncomplicated paracentesis. TIPS 07/01/18 00:00 CONCLUSION: 1. Uncomplicated fluoroscopic guided placement of TIPS shunts from the right hepatic vein to the right portal vein, as above. PLAN: Baseline ultrasound examination in 2 weeks with surveillance ultrasound at 3 months, 6 months and one year. Abdomen X-Ray 07/06/18 11:06 CONCLUSION: Dobbhoff tube tip is noted within the expected region of the distal stomach. Chest X-Ray 07/12/18 06:00 CONCLUSION: 1. Right-sided chest tube has been retracted but remains in the inferior hemithorax. No pneumothorax. 2. Remaining tubes and lines are stable. 3. Persistent bilateral lower lung zone airspace disease. Procedures: 06/25/18-Ultrasound guided paracentesis by interventional radiology with removal of 5700 mL's of clear, yellow fluid. 06/25/18 -Ultrasound-guided thoracentesis by interventional radiology with removal of 1200 mL's of clear, yellow fluid. 06/29/1827-[id number] paracentesis by interventional radiology with removal of 5900 mL's of clear, red fluid. 07/01/18-transjugular intrahepatic portosystemic shunt placement by interventional radiology 07/06/18-Endotracheally intubated 07/06/1881-[id number] right chest tube placement for large right pleural effusion 07/07/18-Hemodialysis catheter to left IJ 07/08/18-Hemodialysis started . Assessment and Plan - Disease Oriented Problem List (1) Sepsis (2) Diabetes (3) Pneumonia (4) Acute on chronic kidney failure (5) Abdominal distension - Symptom Scale (1) Shortness of breath 0-10 Scale: Unable to quantify Comment: This is most likely from ascites and pleural effusion. Patient has had ultrasound guided thoracentesis on 03/05 with removal of 1200 mL's of clear, yellow fluid and ultrasound guided paracentesis on 06/25/18 with removal of 5700 mL's of clear fluid. (2) Pain Comment: From bedbound status, intubation and other interventions. (3) Debility 0-10 Scale: Unable to quantify Comment: Progressive. Patient has multiple ongoing comorbidities. Pertinent Non-Medical Issues: Psychosocial: Patient is originally from [facility] [place]. She moved to [place] in 1983. She has been to her current for 29 years. 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 Patient has never had children. Spiritual: Patient is Spiritism-open to locomotive engineer diesel or freight elevator operator to visit. Legal: Patient has completed designation of healthcare surrogate form today 07/05. Ethical issues impacting care: None identified at this time Important Contacts: Healthcare surrogate -spouse-Higinio Lima [phone] Alternate healthcare surrogate-Bharat Willard -[phone] Family friend-Keon Real [phone] . Prognosis: Mrs. Phoenix is a 72-year-old female with a past medical history of chronic lymphoid leukemia, asthma, diabetes mellitus, fatty liver, gout, arthritis, kidney disease, and thyroid disease. Patient presented to the emergency room on 06/25/18 for evaluation of generalized weakness, abdominal distention, shortness of breath and a painful bump on her head which she sustained from a fall from her water bed a week prior to presenting to the emergency room. Diagnostic EGD has showed that patient has liver cirrhosis. Clinical course complicated by shortness of breath, worsening renal function, and recurrent ascites. Given multiple ongoing comorbidities, patient remains at high risk for further complications, deterioration and decline. . Code Status: Alternative Code Plan: PLAN: Legal decision maker: Patient is currently intubated, sedated and is not able to participate in decision-making. It is not known with the patient will ever regain capacity to make medical decisions for himself. Patient has designated her spouse Higinio Lima as her healthcare surrogate and her neighbor Sudheer Nicholson is her alternate healthcare surrogate in the past when she was able to make medical decisions. Goals: Goals remain aggressive. Telephone conversation with patient`s spouse on 07/11/18. Expressed concern that patient is not showing improvement in her renal function despite hemodialysis. Patient spouse said, "Do your best to keep her alive". Readdressed code status in case patient gets medically extubated and patient`s spouse wants patient to be reintubated if she goes into respiratory failure after medical extubation. Patient spouse Higinio Lima is grieving the loss of his only living relative-his brother who 07/06/18 and he mentioned that he is not ready to lose his . CODE STATUS: Alternate code-Intubation only SYMPTOMS: * Shortness of breath:This is most likely from ascites and pleural effusion. Patient has had ultrasound guided thoracentesis on 06/25/18 with removal of 1200 mL's of clear, yellow fluid and ultrasound guided paracentesis on 06/25/18 with removal of 5700 mL's of clear fluid. Patient had another therapeutic paracentesis with removal of 5900 mL's of clear red fluid. Intubated on 07/06/18 - due to confusion, tachypneic, desaturation and lethargy. Currently on FiO2 50 %. Right pigtail chest tube placed on 07/06/18. Pulmonology following. No recommendations at this time. * Pain: Patient can have pain from bedbound status, intubation and other interventions. Fentanyl infusion discontinued. Patient does not appear to be in pain at this time. No recommendations at this time. * Debility: Progressive. Patient has ongoing multiple comorbidities and has had multiple falls at home. Patient uses a wheeled walker at home. Physical therapy consulted, recommended PT at rehab. Palliative care will continue to follow the patient during hospital course as condition evolves, to assist patient/decision-maker with understanding of their medical conditions, weighing benefits/burdens of treatment options, for clarification of goals of treatment. Additionally will assist with any symptoms of palliative concern Attestation Attestation: To help prompt me to consider important information that might be impacting today's encounter and assessment, information from prior notes written by myself or my colleagues may have been "brought forward" into today's note. My signature on this note, however, is an attestation that I personally performed the exam, history, and/or decision-making noted today, and, unless otherwise indicated, the interactions with patient, family, and staff as well as the review of records all occurred today. I also attest that the listed assessment and stated plan reflect my best clinical judgment today based on the combination of historical information, prior notes, and today's exam/ interactions. When time spent is documented, it refers only to time spent today by the signer, or if indicated, combined time spent today by collaborating physician/nurse practitioner.
--- NOTE | 2018-07-13 12:09 | P.PNID ---
Subjective Remarks: ID coverage: Patient is awake on the ventilator. Currently on CPAP. Has fever temperature 100.1. No significant overnight events. CBC remained elevated. Discussed with RN. Has been receiving hemodialysis. Pigtail cath placed on her R chest Had TIPS procedure 07/01 Patient is a 72-year-old female presented to the hospital complaining of shortness of breath. She has had problem with shortness of breath over the last several months, but it has progressively worsened that she has difficulty ambulating. She gets orthopnea. She occasionally has cough but no phlegm. Denies any chest pain. She admits to some intermittent low-grade fevers. It was also noted that her abdomen has been more distended. On evaluation she was found to have pleural effusions as well as ascites and liver cirrhosis on ultrasound. She also had a CT of the abdomen and pelvis which did not show any lymphadenopathy. She has not been febrile. She has had thoracentesis and they took out 1.2 L of fluid. Paracentesis and they took out 5.7 L of ascites. Since admission she has had leukocytosis of 20,000 and higher. 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 She has not required any treatment for her CLL. Patient had upper endoscopy. She has had some diarrhea. She is noted increased abdominal girth again. Patient also has had increasing creatinine, and her urine output has been decreasing. Stool for C. difficile is negative. I do not have a urinalysis. Her initial chest x-ray on admission showing a right base infiltrate and effusion. Her last chest x-ray after she has had thoracenteses showed hypoaeration, with no infiltrates seen. Patient has been on Rocephin since admission. Infectious disease consultation has been requested to assist with evaluation and treatment of leukocytosis. Antibiotics: Levaquin Flagyl Lines: LIJ vascath PIV Past Medical History: Asthma Diabetes Gout Hypertension Leukemia H/O foot surgery H/O thyroidectomy Allergies/Adverse Reactions: Allergies No Known Allergies Allergy (Verified 06/25/18 05:25) Objective Vital Signs 07/12/18 13:14 07/12/18 14:34 07/12/18 14:47 Temperature Pulse Rate 64 64 Respiratory Rate 18 23 23 Blood Pressure 128/59 L 134/61 Pulse Oximetry 96 94 L 93 L 07/12/18 15:00 07/12/18 15:01 07/12/18 15:15 Temperature Pulse Rate 63 63 61 Respiratory Rate 28 H 31 H 19 Blood Pressure 127/77 113/56 L Pulse Oximetry 98 96 92 L 07/12/18 15:30 07/12/18 15:45 07/12/18 16:00 Temperature 98.4 F Pulse Rate 64 65 63 Respiratory Rate 21 23 20 Blood Pressure 127/59 L 130/61 129/59 L Pulse Oximetry 97 97 97 07/12/18 16:15 07/12/18 16:16 07/12/18 16:30 Temperature Pulse Rate 63 64 Respiratory Rate 19 19 22 Blood Pressure 118/57 L 117/59 L Pulse Oximetry 94 L 96 97 07/12/18 16:45 07/12/18 17:00 07/12/18 17:15 Temperature Pulse Rate 63 62 62 Respiratory Rate 18 18 19 Blood Pressure 124/57 L 120/60 117/56 L Pulse Oximetry 96 95 97 07/12/18 17:30 07/12/18 17:45 07/12/18 18:00 Temperature Pulse Rate 63 63 64 Respiratory Rate 19 19 22 Blood Pressure 116/56 L 113/56 L Pulse Oximetry 94 L 97 96 07/12/18 18:01 07/12/18 18:16 07/12/18 18:30 Temperature Pulse Rate 64 63 63 Respiratory Rate 36 H 19 21 Blood Pressure 153/91 H 105/67 118/57 L Pulse Oximetry 87 L 93 L 95 07/12/18 18:45 07/12/18 19:00 07/12/18 19:01 Temperature Pulse Rate 65 65 65 Respiratory Rate 21 19 20 Blood Pressure 128/60 170/100 H Pulse Oximetry 95 96 97 07/12/18 19:06 07/12/18 19:31 07/12/18 20:00 Temperature Pulse Rate 64 62 61 Respiratory Rate 22 17 24 Blood Pressure 123/56 L 118/56 L Pulse Oximetry 95 97 100 07/12/18 20:03 07/12/18 20:25 07/12/18 20:30 Temperature Pulse Rate 62 58 L Respiratory Rate 25 H 18 18 Blood Pressure 118/57 L 110/53 L Pulse Oximetry 98 100 07/12/18 21:00 07/12/18 21:30 07/12/18 22:00 Temperature Pulse Rate 53 L 55 L 57 L Respiratory Rate 18 18 21 Blood Pressure 93/53 L 99/51 L Pulse Oximetry 98 97 100 07/12/18 22:01 07/12/18 22:31 07/12/18 23:00 Temperature Pulse Rate 58 L 59 L 59 L Respiratory Rate 28 H 23 20 Blood Pressure 115/56 L 130/61 137/60 Pulse Oximetry 100 99 100 07/12/18 23:31 07/12/18 23:40 07/13/18 00:00 Temperature Pulse Rate 59 L 59 L Respiratory Rate 21 18 19 Blood Pressure 122/57 L 128/60 Pulse Oximetry 100 97 100 07/13/18 00:31 07/13/18 01:00 07/13/18 01:30 Temperature Pulse Rate 59 L 60 57 L Respiratory Rate 26 H 25 H 23 Blood Pressure 124/59 L 134/61 114/56 L Pulse Oximetry 100 99 99 07/13/18 02:00 07/13/18 02:30 07/13/18 02:32 Temperature Pulse Rate 60 50 L 56 L Respiratory Rate 20 18 19 Blood Pressure 120/61 82/45 L 99/52 L Pulse Oximetry 99 98 100 07/13/18 03:00 07/13/18 03:01 07/13/18 03:31 Temperature Pulse Rate 58 L 57 L 49 L Respiratory Rate 23 21 18 Blood Pressure 146/60 H 84/49 L Pulse Oximetry 100 100 97 07/13/18 04:00 07/13/18 04:01 07/13/18 04:12 Temperature Pulse Rate 57 L 57 L Respiratory Rate 26 H 20 18 Blood Pressure 96/54 L Pulse Oximetry 100 100 97 07/13/18 07:48 07/13/18 08:00 07/13/18 10:26 Temperature 98.3 F Pulse Rate 57 L Respiratory Rate 18 24 15 Blood Pressure 126/59 L Pulse Oximetry 99 100 99 07/13/18 10:28 Temperature Pulse Rate Respiratory Rate 14 Blood Pressure Pulse Oximetry 99 Intake & Output 07/12/18 07/13/18 07/13/18 18:59 06:59 18:59 Intake Total 100 / 100 60 / 60 Output Total 20 / 20 250 / 250 Balance 80 / 80 -190 / -190 Weight 83 kg Intake: IV 100 / 100 Flexbumin 25% Inj 100 ML @ 60 100 / 100 mls/hr IV.SIG Q8H [facility] Rx#: [id number] Tube Feeding 0 / 0 Water Bolus Amount 60 / 60 Output: Urine 0 / 0 0 / 0 Chest Tube Drainage 250 / 250 #1 Right Mid-Axillary Chest 250 / 250 Other: Date of Last Bowel Movement 07/12/18 07/13/18 07/13/18 # Incontinent Bowel Movements 1 1 07/09/18 11:20 Fluid - Pleural fluid Gram Stain - Final 07/09/18 11:20 Fluid - Pleural fluid Body Fluid Culture - Final No growth in 72 hours (aerobically and anaerobically ) 07/06/18 05:15 Blood - Peripheral Aerobic Blood Culture - Final No growth in 5 days 07/06/18 05:15 Blood - Peripheral Anaerobic Blood Culture - Final No growth in 5 days 07/06/18 05:20 Blood - Peripheral Aerobic Blood Culture - Final No growth in 5 days 07/06/18 05:20 Blood - Peripheral Anaerobic Blood Culture - Final No growth in 5 days Lab - Hematology Results 07/12/18 07/13/18 03:09 09:02 WBC 20.8 H 32.8 H RBC 2.62 L 2.72 L Hgb 7.9 L 8.7 L Hct 24.7 L 26.5 L MCV 94.4 97.3 MCH 30.3 31.8 MCHC 32.1 32.7 RDW 18.3 H 21.4 H D Plt Count 73 L 79 L MPV 8.7 9.2 Prelim Diff (Auto) Slide review pending Neut % (Auto) 34.7 Lymph % (Auto) 59.2 H [place] % (Auto) 4.3 Eos % (Auto) 1.1 Baso % (Auto) 0.7 Neut # (Auto) 11.4 H Lymph # (Auto) 19.4 H [place] # (Auto) 1.4 H Eos # (Auto) 0.4 Baso # (Auto) 0.2 Differential Comment . Lab - Chemistry Results 07/11/18 07/11/18 07/12/18 17:06 23:26 03:09 Sodium 144 Potassium 3.2 L Chloride 106 Carbon Dioxide 22.6 Anion Gap 15 BUN 46 H Creatinine 4.11 H Estimated GFR 11 L POC Glucose 139 H 171 H Random Glucose 190 H Calcium 8.8 Phosphorus 2.5 D Magnesium 2.0 Total Bilirubin 4.5 H AST 37 ALT 12 Alkaline Phosphatase 215 H Total Protein 6.3 L Albumin 4.8 07/12/18 07/12/18 07/12/18 05:03 12:01 17:43 Sodium Potassium Chloride Carbon Dioxide Anion Gap BUN Creatinine Estimated GFR POC Glucose 196 H 192 H 170 H Random Glucose Calcium Phosphorus Magnesium Total Bilirubin AST ALT Alkaline Phosphatase Total Protein Albumin 07/12/18 07/13/18 07/13/18 23:45 04:06 05:11 Sodium Potassium Chloride Carbon Dioxide Anion Gap BUN Creatinine Estimated GFR POC Glucose 163 H 170 H Random Glucose Calcium Phosphorus 2.7 Magnesium Total Bilirubin AST ALT Alkaline Phosphatase Total Protein Albumin 07/13/18 07/13/18 09:02 11:39 Sodium 142 Potassium 3.5 Chloride 106 Carbon Dioxide 18.6 L Anion Gap 17 H BUN 64 H Creatinine 5.33 H Estimated GFR 8 L POC Glucose 178 H Random Glucose 169 H Calcium 9.1 Phosphorus Magnesium Total Bilirubin AST ALT Alkaline Phosphatase Total Protein Albumin Imaging: ITS Impressions Abdomen Ultrasound 06/25/18 00:00 CONCLUSION: 1. Moderate ascites 2. Hepatic cirrhosis Abdomen/Pelvis CT 06/25/18 00:00 CONCLUSION: 1. Suspected cirrhotic liver. 2. Mild to moderate amount of ascites. 3. Bilateral pleural effusions being mild on the right and minimal on the left. 4. Increased density at the inferior right middle lobe and right lower lobe likely related to consolidation or atelectasis. 5. Anasarca 6. Tiny nonobstructing left renal stone. Chest Ultrasound 06/25/18 00:00 CONCLUSION: 1. Large right pleural effusion without appreciable loculation. Thoracentesis Ultrasound 06/25/18 00:00 CONCLUSION: 1. Uncomplicated right thoracentesis. Head CT 06/25/18 06:47 CONCLUSION: 1. Stable evaluation of the head. 2. No evidence of acute infarct, hemorrhage, mass or edema. . Paracentesis Ultrasound 06/29/18 00:00 CONCLUSION: 1. Uncomplicated paracentesis. TIPS 07/01/18 00:00 CONCLUSION: 1. Uncomplicated fluoroscopic guided placement of TIPS shunts from the right hepatic vein to the right portal vein, as above. PLAN: Baseline ultrasound examination in 2 weeks with surveillance ultrasound at 3 months, 6 months and one year. Abdomen X-Ray 07/06/18 11:06 CONCLUSION: Dobbhoff tube tip is noted within the expected region of the distal stomach. Chest X-Ray 07/12/18 06:00 CONCLUSION: 1. Right-sided chest tube has been retracted but remains in the inferior hemithorax. No pneumothorax. 2. Remaining tubes and lines are stable. 3. Persistent bilateral lower lung zone airspace disease. Physical Exam: GENERAL: On the ventilator. No distress. SKIN: Cool and dry. No generalized rash. HEAD: Atraumatic. Normocephalic. No temporal wasting, or tenderness. EYES: [place] conjunctiva. No petechia or hemorrhage. Has scleral icterus. No injection or drainage. EARS, NOSE AND THROAT: Orally intubated NECK: Ecchymoses R side where they had venipunture for TIPS CARDIOVASCULAR: Regular rate and rhythm. No murmurs, rubs or gallops heard RESPIRATORY: Bibasilar rhonchi. Cath R side with serous fluid. Decreased breath sounds. ABDOMEN: Globular, soft, mildly distended, no reaction to palpation. Bowel sounds present and normoactive. EXTREMITIES: No clubbing, cyanosis or edema. NEUROLOGICAL: Sedated. Responsive. PSYCHIATRIC: Unable to assess LINE: No evidence of infection Assessment and Plan - Plan Impression Leukocytosis, etiology? - ?reactive, remains elevated. - no obvious source of infection - CXR with infiltrates, sputum NF - UA ok - BC negative - pleural fluid negative - has new vascath, no other central line - C diff negative - ?part of her CLL, has lymphocyte predominance on manual diff Bilateral infiltrates - CHF likely, or ARDS Respiratory failure Eligio effusions and ascites, etiology? Known CLL. Ascites, has liver cirrhosis on imaging - S/P TIPS Chest pain, ?etiology - ?related to TIPS Acute renal failure. Patient receiving hemodialysis Recommendation Monitor CBC Send stools for C. difficile. Monitor progress Palliative medicine following
[2018-07-13 12:36] LABS: Monocytes 3 % (0-8)
[2018-07-13 12:37] LABS: Platelet Morphology Normal (Normal); Smudge Cells Present
[2018-07-13 12:38] LABS: Lymphocytes 73 % (9-44)
[2018-07-13] MEDS ORDERED: Albumin Human 25% Inj 50 ML IV.SIG ONE (14:00)
--- NOTE | 2018-07-13 14:16 | P.PNCC ---
Subjective Subjective Remarks/Hospital Course: This is a 72-year-old female. Admission 06/25/2008. Past medical history includes stage 0 CLL, asthma, diabetes, gout, hypertension and hypothyroidism. She initially presented to the hospital complaining of a several month history of progressive shortness of breath. This is associated orthopnea and difficulty ambulation. A dry nonproductive cough as well. No chest pain. On admission, patient was noted to have moderate ascites and a significant right pleural effusion. She received paracentesis on 06/25 5700 cc and on 06/28 5900 cc. She had a right-sided thoracentesis 1200 cc on 06/25. CT abdomen pelvis showed likely liver cirrhosis and moderate ascites. She also had a CT of the abdomen and pelvis which did not show any lymphadenopathy. She has not been febrile. She has had thoracentesis and they took out 1.2 L of fluid. 06/28 had an upper endoscopy. EGD revealed esophagitis, distal esophageal ulcer, portal hypertensive gastropathy. She started worsening renal failure and worsening leukocytosis. Due to the possibility of hepatorenal syndrome a TIPS was performed by IR 07/01. She has been on beta-ilana, diuretics and midodrine in the interim along with octreotide. Patient been pancultured which no growth today. Current levofloxacin and metronidazole. No obvious source of infection at the present time. The past couple nights patient is been in ICU. She is become more confused and will not keep her BiPAP on due to agitation. She is received 2 stenosis of lorazepam tonight. I was asked to see the patient due to worsening respiratory issues including tachypnea and altered mental status including unresponsive. PH is 7.35. PCO2 47. PO2 74. Base index -6. She is on a nonrebreather. She is intubated using 20 mg etomidate and 8.0 ET tube at 23 cm at lip. They were unable to pass an NG tube.. 07/07/18: Remains intubated sedated. Renal function is worsening creatinine close to 6 now. Remains anuric. Large right pleural effusion drained yesterday 1.4 L since pigtail chest tube placement. Currently sedated with fentanyl will wake up follows some commands 07/08/18: Patient remains intubated mildly sedated with fentanyl infusion. Remains anuric with worsening renal function. HD catheter was placed yesterday. Will initiate hemodialysis today per nephrology. Right chest tube with 700 mL output in the last 24 hours 07/09/18: Remains critical wearing ventilator support. Remains anuric hemodialysis started yesterday 2 L removed. Right pleural effusion improved with chest tube, left moderate large pleural effusion. Plan for thoracentesis and then start CPAP trials. 07/10: Patient remains intubated lightly sedated with fentanyl. Tolerate CPAP wakes up weakly following commands. Chest x-ray shows improved infiltrates. Right chest tube with 700 mL output in 24 hours. Left thoracentesis with 500 mL removed 07/11: Remains lethargic encephalopathy intermittently following commands. Oxygen requirement increased to 50% due to hypoxia. Tired out on CPAP at night. Plan for hemodialysis today attempt CPAP after hemodialysis today. WBC count trending up creatinine remains more than 5. Remains anuric 07/12: Remains sedated, orally intubated on mechanical ventilation. Tolerating tube feeds. Daily CPAP trials ongoing 07/13: Remains sedated, orally intubated on mechanical ventilation. Gets agitated on lightening sedation. Apneic episodes with CPAP trials. Attempted SIMV today. Borderline blood pressure so ordered IV albumin. Awaiting hemodialysis. Objective Vital Signs / I&O: Vital Signs 07/12/18 14:34 07/12/18 14:47 07/12/18 15:00 Temperature Pulse Rate 64 64 63 Respiratory Rate 23 23 28 H Blood Pressure 128/59 L 134/61 Pulse Oximetry 94 L 93 L 98 07/12/18 15:01 07/12/18 15:15 07/12/18 15:30 Temperature Pulse Rate 63 61 64 Respiratory Rate 31 H 19 21 Blood Pressure 127/77 113/56 L 127/59 L Pulse Oximetry 96 92 L 97 07/12/18 15:45 07/12/18 16:00 07/12/18 16:15 Temperature 98.4 F Pulse Rate 65 63 63 Respiratory Rate 23 20 19 Blood Pressure 130/61 129/59 L 118/57 L Pulse Oximetry 97 97 94 L 07/12/18 16:16 07/12/18 16:30 07/12/18 16:45 Temperature Pulse Rate 64 63 Respiratory Rate 19 22 18 Blood Pressure 117/59 L 124/57 L Pulse Oximetry 96 97 96 07/12/18 17:00 07/12/18 17:15 07/12/18 17:30 Temperature Pulse Rate 62 62 63 Respiratory Rate 18 19 19 Blood Pressure 120/60 117/56 L 116/56 L Pulse Oximetry 95 97 94 L 07/12/18 17:45 07/12/18 18:00 07/12/18 18:01 Temperature Pulse Rate 63 64 64 Respiratory Rate 19 22 36 H Blood Pressure 113/56 L 153/91 H Pulse Oximetry 97 96 87 L 07/12/18 18:16 07/12/18 18:30 07/12/18 18:45 Temperature Pulse Rate 63 63 65 Respiratory Rate 19 21 21 Blood Pressure 105/67 118/57 L 128/60 Pulse Oximetry 93 L 95 95 07/12/18 19:00 07/12/18 19:01 07/12/18 19:06 Temperature Pulse Rate 65 65 64 Respiratory Rate 19 20 22 Blood Pressure 170/100 H 123/56 L Pulse Oximetry 96 97 95 07/12/18 19:31 07/12/18 20:00 07/12/18 20:03 Temperature Pulse Rate 62 61 62 Respiratory Rate 17 24 25 H Blood Pressure 118/56 L 118/57 L Pulse Oximetry 97 100 07/12/18 20:25 07/12/18 20:30 07/12/18 21:00 Temperature Pulse Rate 58 L 53 L Respiratory Rate 18 18 18 Blood Pressure 110/53 L 93/53 L Pulse Oximetry 98 100 98 07/12/18 21:30 07/12/18 22:00 07/12/18 22:01 Temperature Pulse Rate 55 L 57 L 58 L Respiratory Rate 18 21 28 H Blood Pressure 99/51 L 115/56 L Pulse Oximetry 97 100 100 07/12/18 22:31 07/12/18 23:00 07/12/18 23:31 Temperature Pulse Rate 59 L 59 L 59 L Respiratory Rate 23 20 21 Blood Pressure 130/61 137/60 122/57 L Pulse Oximetry 99 100 100 07/12/18 23:40 07/13/18 00:00 07/13/18 00:31 Temperature Pulse Rate 59 L 59 L Respiratory Rate 18 19 26 H Blood Pressure 128/60 124/59 L Pulse Oximetry 97 100 100 07/13/18 01:00 07/13/18 01:30 07/13/18 02:00 Temperature Pulse Rate 60 57 L 60 Respiratory Rate 25 H 23 20 Blood Pressure 134/61 114/56 L 120/61 Pulse Oximetry 99 99 99 07/13/18 02:30 07/13/18 02:32 07/13/18 03:00 Temperature Pulse Rate 50 L 56 L 58 L Respiratory Rate 18 19 23 Blood Pressure 82/45 L 99/52 L Pulse Oximetry 98 100 100 07/13/18 03:01 07/13/18 03:31 07/13/18 04:00 Temperature Pulse Rate 57 L 49 L 57 L Respiratory Rate 21 18 26 H Blood Pressure 146/60 H 84/49 L Pulse Oximetry 100 97 100 07/13/18 04:01 07/13/18 04:12 07/13/18 07:48 Temperature Pulse Rate 57 L Respiratory Rate 20 18 18 Blood Pressure 96/54 L Pulse Oximetry 100 97 99 07/13/18 08:00 07/13/18 10:26 07/13/18 10:28 Temperature 98.3 F Pulse Rate 57 L Respiratory Rate 24 15 14 Blood Pressure 126/59 L Pulse Oximetry 100 99 99 07/13/18 12:00 07/13/18 14:05 Temperature 101.1 F H Pulse Rate 55 L Respiratory Rate 8 L 12 Blood Pressure 113/55 L Pulse Oximetry 98 96 Intake & Output 07/12/18 07/13/18 07/13/18 18:59 06:59 18:59 Intake Total 100 / 100 60 / 60 Output Total 20 / 20 250 / 250 Balance 80 / 80 -190 / -190 Weight 83 kg Intake: IV 100 / 100 Flexbumin 25% Inj 100 ML @ 60 100 / 100 mls/hr IV.SIG Q8H [facility] Rx#: [id number] Tube Feeding 0 / 0 Water Bolus Amount 60 / 60 Output: Urine 0 / 0 0 / 0 Chest Tube Drainage 20 / 20 250 / 250 #1 Right Mid-Axillary Chest 20 / 20 250 / 250 Other: Date of Last Bowel Movement 07/12/18 07/13/18 07/13/18 # Incontinent Bowel Movements 1 1 Result Diagrams: 07/13/18 09:02 07/13/18 09:02 Objective Remarks: - Constitutional Lying in bed critically ill anuric, hypoxemic requiring more FiO2 - Routine HEENT Exam Head: Present: normocephalic, atraumatic Eye: Present: EOMI, PERRL ENT: Present: Orotracheally intubated - Routine Neck Exam Present: supple, full ROM. Absent: JVD Bandage from tips in right neck - Routine Respiratory Exam Present: Mechanically ventilated, crackles, distant breath sounds, diminished air movement. R pigtail catheter in place - Routine Cardiovascular Exam Present: RRR, S1, S2. Absent: murmur - Routine Abdominal Exam Present: soft, normoactive bowel sounds - Routine Skin Exam Present: intact, dry. Absent: cyanosis, erythema - Routine Neurological Exam Intubated sedated wakes up follows commands x4, but weakly, remains lethargic. No focal deficits Assessment and Plan - Assessment and Plan Plan: Neuro/Psych: Acute metabolic encephalopathy CO2 narcosis daily sedation vacation Goal of RASS -1. Daily sedation vacation Ammonia level <10 CT brain 06/25 revealed no acute intracranial findings On lightening sedation patient continues to follow commands intermittently, remains lethargic with episodes of agitation CV: Essential hypertension Bradycardia Holding nadolol 20 mg daily hold due to bradycardia, continue midodrine 10 mg 3 times daily Hemodialysis started for fluid removal no response to IV Lasix Echocardiogram -EF 55-60%. Normal LV systolic function. Trace mitral valve regurgitation. Mitral annular calcification is present. Cannot rule out a small mobile echodensity on the left ventricular side of the anterior leaflet towards the left ventricular outflow tract in parasternal views. Clinical correlation recommended there is trace tricuspid valve regurgitation. The estimated pulmonary arterial pressure is 38 mmHg. Blood cultures have been negative Resp: Acute hypoxemic respiratory failure Right pleural effusion status post thoracentesis 06/25 -1200 cc, right pigtail chest tube placement 07/06/2018 PRVC ventilation. Head of bed at 30 degrees. Apneic episodes with CPAP trials hence attempted SIMV with pressure support today Ventilator bundle. Albuterol/ipratropium aerosols every 4 hours with albuterol every 2 hours as needed dyspnea Right pigtail chest tube placed 07/06/2018, with 1.4 L drained initially. Status post left thoracentesis 07/09/2018 with 500 mL removed GI: Portal hypertensive gastropathy [place] class B esophagitis Distal esophageal ulcer Ascites -paracentesis 5700 cc 06/25. 5900 cc 06/28 Status post TIPS 07/01 for possible hepatorenal syndrome CT abdomen/pelvis 06/25 revealed cirrhotic type liver. Left-sided hydronephrosis. Moderate ascites EGD 06/28 revealed [place] class B esophagitis. 7 mm distal esophageal ulcer. Portal hypertensive gastropathy.H. pylori negative. Continue midodrine. On octreotide 50 mcg IV every 8 hours for portal hypertension gastropathy, HRS Pantoprazole 40 mg IV daily. Discontinued Aldactone due to worsening renal failure Being followed by GI. Negative CA-19-9, alpha-fetoprotein, beta-hCG. Negative hepatitis panel Endo: Diabetes mellitus Hypothyroidism Gout Sliding scale insulin Accu-Cheks to maintain euglycemia/low every 6 hours aspart insulin Holding glipizide 5 mg daily/home medication Patient is on levothyroxine 300 mcg daily. Patient is on allopurinol at home. Hold due to renal failure Renal: Acute kidney failure Monitor urine output. Accurate I's and O's. Currently remains anuric. Hemodialysis catheter placed, started hemodialysis 07/08/2018 Can discontinue Madsen if okay with nephrology Avoid nephrotoxic medication No hydronephrosis on CT abdomen/pelvis on admission Nephrology Dr. Busby Heme: CLL [id number] score 0 Leukocytosis Normocytic anemia Followed by Dr. Flores/oncology. Follow-up on coags, CBC Currently no indication for transfusion of blood products at this time. ID: Followed by infectious disease. Currently levofloxacin. metronidazole has been discontinued Peritoneal and pleural fluid 06/25 no growth today. Pleural fluid no growth to date F/U blood cultures x2, sputum, UA and influenza a and B now Access-utilize peripheral IV. Central line if indicated Prophylaxis -GI -pantoprazole -DVT -SCDs/heparin subcu Remains critically ill with multiorgan failure renal failure persist patient is anuric. Respiratory failure slightly worsened FiO2 requirement increased to 50% . Hemodialysis with fluid removal if oxygenation improves will attempt CPAP trial. Patient is at acute risk of decompensation and at this time due to multiorgan failure Consult 35 minutes critical care time
[2018-07-13] MEDS ORDERED: DOPAMINE IV.CONT PRN (15:00)
[2018-07-13] MEDS ORDERED: SODIUM CHLOR 0.9% IV.CONT PRN (15:00)
[2018-07-13] MEDS: Hydrocortisone Sod Succinate 100 MG Vial IV.PUSH SCH ×2 (16:02→21:03)
--- NOTE | 2018-07-13 19:27 | P.PNPL ---
Subjective Interval history: 72 YOWF with br asthma, DM, Rt lung infilt and Pl eff Breathing better no Abd pain no fever. On Vent PRVC AC, Fi02 40% Remains on vent Chest tube draining On Low dose Dopamine Physical Exam Vital signs: Vital Signs 07/12/18 19:31 07/12/18 20:00 07/12/18 20:03 Temperature Pulse Rate 62 61 62 Respiratory Rate 17 24 25 H Blood Pressure 118/56 L 118/57 L Pulse Oximetry 97 100 07/12/18 20:25 07/12/18 20:30 07/12/18 21:00 Temperature Pulse Rate 58 L 53 L Respiratory Rate 18 18 18 Blood Pressure 110/53 L 93/53 L Pulse Oximetry 98 100 98 07/12/18 21:30 07/12/18 22:00 07/12/18 22:01 Temperature Pulse Rate 55 L 57 L 58 L Respiratory Rate 18 21 28 H Blood Pressure 99/51 L 115/56 L Pulse Oximetry 97 100 100 07/12/18 22:31 07/12/18 23:00 07/12/18 23:31 Temperature Pulse Rate 59 L 59 L 59 L Respiratory Rate 23 20 21 Blood Pressure 130/61 137/60 122/57 L Pulse Oximetry 99 100 100 07/12/18 23:40 07/13/18 00:00 07/13/18 00:31 Temperature Pulse Rate 59 L 59 L Respiratory Rate 18 19 26 H Blood Pressure 128/60 124/59 L Pulse Oximetry 97 100 100 07/13/18 01:00 07/13/18 01:30 07/13/18 02:00 Temperature Pulse Rate 60 57 L 60 Respiratory Rate 25 H 23 20 Blood Pressure 134/61 114/56 L 120/61 Pulse Oximetry 99 99 99 07/13/18 02:30 07/13/18 02:32 07/13/18 03:00 Temperature Pulse Rate 50 L 56 L 58 L Respiratory Rate 18 19 23 Blood Pressure 82/45 L 99/52 L Pulse Oximetry 98 100 100 07/13/18 03:01 07/13/18 03:31 07/13/18 04:00 Temperature Pulse Rate 57 L 49 L 57 L Respiratory Rate 21 18 26 H Blood Pressure 146/60 H 84/49 L Pulse Oximetry 100 97 100 07/13/18 04:01 07/13/18 04:12 07/13/18 07:48 Temperature Pulse Rate 57 L Respiratory Rate 20 18 18 Blood Pressure 96/54 L Pulse Oximetry 100 97 99 07/13/18 08:00 07/13/18 10:26 07/13/18 10:28 Temperature 98.3 F Pulse Rate 57 L Respiratory Rate 24 15 14 Blood Pressure 126/59 L Pulse Oximetry 100 99 99 07/13/18 12:00 07/13/18 14:05 07/13/18 16:00 Temperature 101.1 F H 99.5 F Pulse Rate 55 L 69 Respiratory Rate 8 L 12 13 Blood Pressure 113/55 L 128/63 Pulse Oximetry 98 96 94 L 07/13/18 17:31 Temperature Pulse Rate Respiratory Rate 12 Blood Pressure Pulse Oximetry 94 L Intake & Output 07/13/18 07/13/18 07/14/18 06:59 18:59 06:59 Intake Total 60 / 60 150 / 150 Output Total 250 / 250 120 / 120 Balance -190 / -190 30 / 30 Weight 83 kg Intake: IV 50 / 50 Flexbumin 25% Inj 50 ML @ 60 50 / 50 mls/hr IV.SIG ONCE ONE Rx#: [id number] Tube Feeding 0 / 0 Water Bolus Amount 60 / 60 100 / 100 Output: Urine 0 / 0 0 / 0 Chest Tube Drainage 250 / 250 120 / 120 #1 Right Mid-Axillary Chest 250 / 250 120 / 120 Other: Date of Last Bowel Movement 07/13/18 07/13/18 # Incontinent Bowel Movements 1 0 GENERAL: Elderly WF, on vent, opens eyes SKIN: Warm and dry. HEAD: Normocephalic. EYES: No scleral icterus. No injection or drainage. NECK: Supple, trachea midline. No JVD or lymphadenopathy. CARDIOVASCULAR: Regular rate and rhythm without murmurs, gallops, or rubs. RESPIRATORY: Breath sounds equal bilaterally. No accessory muscle use. ERt chest tube draining GASTROINTESTINAL: Abdomen soft, non-tender, nondistended. MUSCULOSKELETAL: No cyanosis, or edema. BACK: Nontender without obvious deformity. No CVA tenderness. - Urinary Catheter Management Straight Cath placed during this visit: yes, but has since been removed by the nurse Reason for continuing: Not indwelling catheter Insertion date: 07/07/18 Insertion time: 18:00 Removal date: 07/07/18 Removal time: 18:20 Assessment and Plan - Plan IMPRESSION: 1. Right lung infiltrate. 2. Right pleural effusion. 3. Dyspnea. 4. Diabetes mellitus. 5. Hypertension. 6. Renal insufficiency and chronic kidney disease. 7. CLL 8. S/P TIPS 9. Severe leucocytosis 10. Worsening renal functions, 11. VDRF PLAN: Vent support, PRVC AC 12, Fi02 40%, Sedation with Fentanyl Cont Abx per ID Aerosol nebs Heparin 5000 IU SQ q 12 hrs Supplement 02 to keep sat >90% Chest tube to suction
[2018-07-14] MEDS: Oral Hygiene Kit OROPHARYNG SCH ×3 (01:18→14:20)
[2018-07-14] MEDS: Hydrocortisone Sod Succinate 100 MG Vial IV.PUSH SCH ×2 (03:18→08:06)
[2018-07-14] MEDS: Artificial Tears Opth Drops 15 ML Bottle EACH EYE SCH ×2 (05:44→15:03)
[2018-07-14] MEDS: Pantoprazole Inj 40 MG Vial IV.PUSH SCH (05:44)
[2018-07-14] MEDS: Insulin NovoLOG Aspart Correctional Sugar Inj SQ SCH ×2 (05:55→14:19)
[2018-07-14] MEDS: Levothyroxine 150 MCG Tablet PO SCH (06:39)
[2018-07-14] MEDS: Heparin - SQ 10,000 UNITS/ML Vial SQ SCH (08:06)
[2018-07-14] MEDS: Chlorhexidine 0.12% Oral Kit 15 ML UDC OROPHARYNG SCH (08:06)
[2018-07-14] MEDS: Heparin 10,000 UNITS/10 ML Vial (for IV use) OTHER PRN (09:38)
[2018-07-14] MEDS: Albumin Human 25% Inj 100 ML IV.SIG PRN ×4 (09:38→09:43)
--- NOTE | 2018-07-14 11:22 | P.PNPAL ---
Reason for Visit Reason for visit: a. To assist with evaluation and management of symptoms including: Shortness of breath, pain, debility b. To assist medical decision maker(s) with: better understanding of current medical conditions; weighing benefits/burdens of medical treatment options; making medical treatment decisions. Subjective Subjective/Interval History: Follow-up medically necessary for symptom management and family support. Patient seen and examined in her MICU room in the presence of house designer. Patient is currently having hemodialysis in the room. She is awake, alert and remains intubated on mechanical ventilation. Currently has no sedation. Patient is on Dopamine infusion. She is on CPAP trial with FIO2 40% and seem to be tolerating it. Patient is following commands with all 4 extremities and appears to be mouthing repeatedly, "please let me go home", "at least for 2 days only" while lifting 2 fingers. Briefly explained to patient how critically ill she is and that at this point she will not be able to go home, if she wants to continue to live. Notified patient that palliative care will continue to talk to her regarding her wish to go home. Telephone conversation with patient`s spouse Higinio Lima, updated him on patient` s medical status. Notified him that patient has been mouthing to staff that she wants to go home. Patient`s spouse states that he wants to come and talk to her. If that is her wish to come home then she should come with hospice. He would want to talk to her first. Patient`s spouse will be coming and meeting with palliative care and probably hospice nurse but he is undecided on whether he will continue with aggressive treatment or transition to comfort care through hospice. Pulmonology, infectious disease following. Case discussed with bedside RN Sangita. Meeting with patient`s spouse Higinio Lima (patient`s health care surrogate) in patient`s room.Hemodialysis finished. Patient remains awake, alert and is attempting to communicate by mouthing words. Patient appears to understand and nods or shakes head appropriately. Patient`s spouse who has already been in room states that patient has told her repeatedly that she wants to go home and he wants to honor her wishes. In the presence of patient`s spouse, readdressed code status, discussed CPR, benefits and complications with patient and spouse, patient and spouse elected DNR for patient. Patient`s spouse reiterates that he wants to honor patient`s wishes. Explained more regarding compassion withdrawal from life support which patient`s spouse is now requesting. Detailed discussion regarding patient medical status,informed patient and spouse. Anticipatory guidance provided regarding compassionate withdrawal from life support process. Patient and spouse agreeable to transitioning to comfort care only through hospice services. Patient`s spouse agreed to discontinuing dopamine infusion and only keep patient comfortable. access clinician Aleksandar also present. Patient`s spouse wants patient to go home. Enquired if he has room for hospice DME. Patient`s spouse would like some time to get furniture moved around at home first. Patient and her spouse have agreed to have patient transported to the hospice care center first to allow time for spouse to move furniture. Patient and spouse understand that patient may en route to the hospice care center and they verbalized that they are alright with that. Patient`s spouse has requested to travel with patient to the hospice care center. Patient`s spouse signed [facility] DNR and Exhibit B (Consent to withdrawal/withholding of life prolonging procedures or measures). Exhibit C signed with attending physician and consulting physician-Palliative care. . Family/Friend Interactions: No family at bedside, hemodialysis in progress. Later meeting with patient`s spouse in patient`s room. . Advance Directives Living Will: Never completed Health Care Surrogate: Copy in medical record Durable Power of Stablehand: Never completed Advance Directives Date on File: 06/29/18 Health Care Surrogate Name and Number: HCS: Clarence Sylvester [phone] Alt: Bharat Willard Documented care wishes:: Never completed living will. . Significant change in goals:: Patient`s spouse and patient have decided to forgo any further aggressive treatment and has requested to transition to comfort care only. . Objective Vital Signs: Vital Signs 07/13/18 12:00 07/13/18 14:05 07/13/18 16:00 Temperature 101.1 F H 99.5 F Pulse Rate 55 L 69 Respiratory Rate 8 L 12 13 Blood Pressure 113/55 L 128/63 Pulse Oximetry 98 96 94 L 07/13/18 17:31 07/13/18 19:20 07/13/18 20:00 Temperature 98.9 F Pulse Rate 64 Respiratory Rate 12 12 15 Blood Pressure 130/66 Pulse Oximetry 94 L 95 95 07/13/18 22:15 07/13/18 22:30 07/13/18 22:45 Temperature Pulse Rate 54 L 54 L 55 L Respiratory Rate 13 12 12 Blood Pressure 109/57 L 113/57 L Pulse Oximetry 96 96 96 07/13/18 23:00 07/13/18 23:15 07/13/18 23:30 Temperature Pulse Rate 54 L 60 55 L Respiratory Rate 13 14 12 Blood Pressure 114/60 118/64 116/61 Pulse Oximetry 97 97 97 07/13/18 23:42 07/13/18 23:45 07/14/18 00:00 Temperature 98.2 F Pulse Rate 60 58 L Respiratory Rate 12 12 13 Blood Pressure 115/57 L 120/60 Pulse Oximetry 97 94 L 93 L 07/14/18 00:15 07/14/18 00:30 07/14/18 00:45 Temperature Pulse Rate 56 L 54 L 56 L Respiratory Rate 13 12 13 Blood Pressure 120/58 L 120/60 117/58 L Pulse Oximetry 96 96 97 07/14/18 01:00 07/14/18 01:15 07/14/18 01:30 Temperature Pulse Rate 53 L 52 L 52 L Respiratory Rate 12 13 12 Blood Pressure 117/56 L 109/59 L 117/58 L Pulse Oximetry 97 97 98 07/14/18 01:45 07/14/18 02:00 07/14/18 02:15 Temperature Pulse Rate 53 L 54 L 52 L Respiratory Rate 12 13 13 Blood Pressure 110/57 L 113/60 113/56 L Pulse Oximetry 98 98 98 07/14/18 02:30 07/14/18 02:45 07/14/18 03:00 Temperature Pulse Rate 51 L 56 L 62 Respiratory Rate 12 14 24 Blood Pressure 114/59 L 116/56 L Pulse Oximetry 98 97 98 07/14/18 03:03 07/14/18 03:15 07/14/18 03:30 Temperature Pulse Rate 61 58 L 60 Respiratory Rate 24 13 17 Blood Pressure 131/60 132/60 132/67 Pulse Oximetry 98 98 99 07/14/18 03:45 07/14/18 04:00 07/14/18 04:10 Temperature Pulse Rate 54 L 62 Respiratory Rate 13 14 13 Blood Pressure 120/60 122/60 Pulse Oximetry 98 100 100 07/14/18 04:15 07/14/18 07:13 07/14/18 08:00 Temperature 98.9 F 98.3 F Pulse Rate 53 L 57 L Respiratory Rate 12 13 14 Blood Pressure 108/56 L 110/56 L Pulse Oximetry 95 99 97 Intake & Output 07/13/18 07/14/18 07/14/18 18:59 06:59 18:59 Intake Total 150 / 150 180 / 180 300 / 300 Output Total 120 / 120 250 / 250 Balance 30 / 30 -70 / -70 300 / 300 Weight 83.5 kg Intake: IV 50 / 50 300 / 300 Flexbumin 25% Inj 50 ML @ 60 50 / 50 mls/hr IV.SIG ONCE ONE Rx#: [id number] Flexbumin 25% Inj 100 ML @ 60 300 / 300 mls/hr IV.SIG WITH DIALYSIS PRN Rx#:[id number] Tube Feeding 0 / 0 120 / 120 Water Bolus Amount 100 / 100 60 / 60 Output: Urine 0 / 0 Chest Tube Drainage 120 / 120 250 / 250 #1 Right Mid-Axillary Chest 120 / 120 250 / 250 Other: Date of Last Bowel Movement 07/13/18 07/13/18 07/13/18 # Incontinent Bowel Movements 0 Physical Exam: CONSTITUTIONAL/GENERAL: This is a chronically ill looking elderly patient, intubated in no acute distress. TUBES/LINES/DRAINS: PIV, ETT, Vas cath, Madsen catheter, Dobbhoff catheter SKIN: Pale. Slightly jaundiced. Ecchymoses on upper extremities. Surgical incision to right IJ with a dressing on. HEAD: Atraumatic. Normocephalic. EYES: Pupils equal and reactive to light. Fundi not examined. ENT: Nose without bleeding or purulent drainage. Edentulous. ETT. Moist oral mucosa. NECK: Trachea midline. Supple, nontender. CARDIOVASCULAR: S1, S2 normal. No JVD. Peripheral pulses symmetric. RESPIRATORY/CHEST: Symmetric. Diminished breath sounds right pigtail chest tube to suction. No wheezes, rales, or rhonchi. GASTROINTESTINAL: Abdomen soft, non-tender, distended. No guarding. Hyperactive bowel sounds. + liquid stool. GENITOURINARY: Without palpable bladder distension. MUSCULOSKELETAL: Extremities without clubbing, cyanosis, or edema. No mottling or clubbing. LYMPHATICS: Did not assess NEUROLOGICAL: Intubated. Awake, alert. Moving all 4 extremities to command. PSYCHIATRIC: Unable to assess Diagnostic Tests Laboratory: Laboratory Results - last 72 hr 07/11/18 07/11/18 07/11/18 11:31 17:06 23:26 WBC RBC Hgb Hct MCV MCH MCHC RDW Plt Count MPV Prelim Diff (Auto) Neut % (Auto) Lymph % (Auto) Grayson % (Auto) Eos % (Auto) Baso % (Auto) Neut # (Auto) Lymph # (Auto) Grayson # (Auto) Eos # (Auto) Baso # (Auto) WBC Differential Seg Neuts % (Manual) Band Neuts % (Manual) Lymphocytes % (Manual) Monocytes % (Manual) Abs Neuts (Manual) Differential Comment Smudge Cells Platelet Estimate Platelet Morphology Sodium Potassium Chloride Carbon Dioxide Anion Gap BUN Creatinine Estimated GFR POC Glucose 177 H 139 H 171 H Random Glucose Calcium Phosphorus Magnesium Total Bilirubin AST ALT Alkaline Phosphatase Total Protein Albumin 07/12/18 07/12/18 07/12/18 03:09 03:09 05:03 WBC 20.8 H RBC 2.62 L Hgb 7.9 L Hct 24.7 L MCV 94.4 MCH 30.3 MCHC 32.1 RDW 18.3 H Plt Count 73 L MPV 8.7 Prelim Diff (Auto) Neut % (Auto) Lymph % (Auto) Grayson % (Auto) Eos % (Auto) Baso % (Auto) Neut # (Auto) Lymph # (Auto) Grayson # (Auto) Eos # (Auto) Baso # (Auto) WBC Differential Seg Neuts % (Manual) Band Neuts % (Manual) Lymphocytes % (Manual) Monocytes % (Manual) Abs Neuts (Manual) Differential Comment Smudge Cells Platelet Estimate Platelet Morphology Sodium 144 Potassium 3.2 L Chloride 106 Carbon Dioxide 22.6 Anion Gap 15 BUN 46 H Creatinine 4.11 H Estimated GFR 11 L POC Glucose 196 H Random Glucose 190 H Calcium 8.8 Phosphorus 2.5 D Magnesium 2.0 Total Bilirubin 4.5 H AST 37 ALT 12 Alkaline Phosphatase 215 H Total Protein 6.3 L Albumin 4.8 07/12/18 07/12/18 07/12/18 12:01 17:43 23:45 WBC RBC Hgb Hct MCV MCH MCHC RDW Plt Count MPV Prelim Diff (Auto) Neut % (Auto) Lymph % (Auto) Grayson % (Auto) Eos % (Auto) Baso % (Auto) Neut # (Auto) Lymph # (Auto) Grayson # (Auto) Eos # (Auto) Baso # (Auto) WBC Differential Seg Neuts % (Manual) Band Neuts % (Manual) Lymphocytes % (Manual) Monocytes % (Manual) Abs Neuts (Manual) Differential Comment Smudge Cells Platelet Estimate Platelet Morphology Sodium Potassium Chloride Carbon Dioxide Anion Gap BUN Creatinine Estimated GFR POC Glucose 192 H 170 H 163 H Random Glucose Calcium Phosphorus Magnesium Total Bilirubin AST ALT Alkaline Phosphatase Total Protein Albumin 07/13/18 07/13/18 07/13/18 04:06 05:11 09:02 WBC 32.8 H RBC 2.72 L Hgb 8.7 L Hct 26.5 L MCV 97.3 MCH 31.8 MCHC 32.7 RDW 21.4 H D Plt Count 79 L MPV 9.2 Prelim Diff (Auto) Slide review pending Neut % (Auto) 34.7 Lymph % (Auto) 59.2 H Grayson % (Auto) 4.3 Eos % (Auto) 1.1 Baso % (Auto) 0.7 Neut # (Auto) 11.4 H Lymph # (Auto) 19.4 H Grayson # (Auto) 1.4 H Eos # (Auto) 0.4 Baso # (Auto) 0.2 WBC Differential Manual diff final Seg Neuts % (Manual) 20 Band Neuts % (Manual) 4 Lymphocytes % (Manual) 73 H Monocytes % (Manual) 3 Abs Neuts (Manual) 7.9 H Differential Comment . Smudge Cells Present H Platelet Estimate Low L Platelet Morphology Normal Sodium Potassium Chloride Carbon Dioxide Anion Gap BUN Creatinine Estimated GFR POC Glucose 170 H Random Glucose Calcium Phosphorus 2.7 Magnesium Total Bilirubin AST ALT Alkaline Phosphatase Total Protein Albumin 07/13/18 07/13/18 07/13/18 09:02 11:39 17:00 WBC RBC Hgb Hct MCV MCH MCHC RDW Plt Count MPV Prelim Diff (Auto) Neut % (Auto) Lymph % (Auto) Grayson % (Auto) Eos % (Auto) Baso % (Auto) Neut # (Auto) Lymph # (Auto) Grayson # (Auto) Eos # (Auto) Baso # (Auto) WBC Differential Seg Neuts % (Manual) Band Neuts % (Manual) Lymphocytes % (Manual) Monocytes % (Manual) Abs Neuts (Manual) Differential Comment Smudge Cells Platelet Estimate Platelet Morphology Sodium 142 Potassium 3.5 Chloride 106 Carbon Dioxide 18.6 L Anion Gap 17 H BUN 64 H Creatinine 5.33 H Estimated GFR 8 L POC Glucose 178 H 158 H Random Glucose 169 H Calcium 9.1 Phosphorus Magnesium Total Bilirubin AST ALT Alkaline Phosphatase Total Protein Albumin 07/13/18 07/14/18 07/14/18 23:41 04:23 05:49 WBC RBC Hgb Hct MCV MCH MCHC RDW Plt Count MPV Prelim Diff (Auto) Neut % (Auto) Lymph % (Auto) Grayson % (Auto) Eos % (Auto) Baso % (Auto) Neut # (Auto) Lymph # (Auto) Grayson # (Auto) Eos # (Auto) Baso # (Auto) WBC Differential Seg Neuts % (Manual) Band Neuts % (Manual) Lymphocytes % (Manual) Monocytes % (Manual) Abs Neuts (Manual) Differential Comment Smudge Cells Platelet Estimate Platelet Morphology Sodium Potassium Chloride Carbon Dioxide Anion Gap BUN Creatinine Estimated GFR POC Glucose 181 H 200 H Random Glucose Calcium Phosphorus 5.2 H D Magnesium Total Bilirubin AST ALT Alkaline Phosphatase Total Protein Albumin Result Diagrams: 07/14/18 12:16 07/13/18 09:02 Microbiology: Microbiology 07/06/18 15:15 Acid Fast Bacilli Smear - Final Fluid - Pleural fluid No acid fast bacilli seen Mycobacterial Culture - Preliminary No growth in 1 week 07/06/18 15:15 Fungal Smear - Final Fluid - Pleural fluid No fungal elements seen Fungal Culture - Preliminary No growth in 1 week 07/09/18 11:20 Gram Stain - Final Fluid - Pleural fluid Body Fluid Culture - Final No growth in 72 hours (aerobically and anaerobically) 07/06/18 05:15 Aerobic Blood Culture - Final Blood - Peripheral No growth in 5 days Anaerobic Blood Culture - Final No growth in 5 days 07/06/18 05:20 Aerobic Blood Culture - Final Blood - Peripheral No growth in 5 days Anaerobic Blood Culture - Final No growth in 5 days Imaging: Abdomen Ultrasound 06/25/18 00:00 CONCLUSION: 1. Moderate ascites 2. Hepatic cirrhosis Abdomen/Pelvis CT 06/25/18 00:00 CONCLUSION: 1. Suspected cirrhotic liver. 2. Mild to moderate amount of ascites. 3. Bilateral pleural effusions being mild on the right and minimal on the left. 4. Increased density at the inferior right middle lobe and right lower lobe likely related to consolidation or atelectasis. 5. Anasarca 6. Tiny nonobstructing left renal stone. Chest Ultrasound 06/25/18 00:00 CONCLUSION: 1. Large right pleural effusion without appreciable loculation. Thoracentesis Ultrasound 06/25/18 00:00 CONCLUSION: 1. Uncomplicated right thoracentesis. Head CT 06/25/18 06:47 CONCLUSION: 1. Stable evaluation of the head. 2. No evidence of acute infarct, hemorrhage, mass or edema. . Paracentesis Ultrasound 06/29/18 00:00 CONCLUSION: 1. Uncomplicated paracentesis. TIPS 07/01/18 00:00 CONCLUSION: 1. Uncomplicated fluoroscopic guided placement of TIPS shunts from the right hepatic vein to the right portal vein, as above. PLAN: Baseline ultrasound examination in 2 weeks with surveillance ultrasound at 3 months, 6 months and one year. Abdomen X-Ray 07/06/18 11:06 CONCLUSION: Dobbhoff tube tip is noted within the expected region of the distal stomach. Chest X-Ray 07/12/18 06:00 CONCLUSION: 1. Right-sided chest tube has been retracted but remains in the inferior hemithorax. No pneumothorax. 2. Remaining tubes and lines are stable. 3. Persistent bilateral lower lung zone airspace disease. Procedures: 06/25/18-Ultrasound guided paracentesis by interventional radiology with removal of 5700 mL's of clear, yellow fluid. 06/25/18 -Ultrasound-guided thoracentesis by interventional radiology with removal of 1200 mL's of clear, yellow fluid. 06/29/1898-[id number] paracentesis by interventional radiology with removal of 5900 mL's of clear, red fluid. 07/01/18-transjugular intrahepatic portosystemic shunt placement by interventional radiology 07/06/18-Endotracheally intubated 07/06/1826-[id number]-stnipd right chest tube placement for large right pleural effusion 07/07/18-Hemodialysis catheter to left IJ 07/08/18-Hemodialysis started . Assessment and Plan - Disease Oriented Problem List (1) Sepsis (2) Diabetes (3) Pneumonia (4) Acute on chronic kidney failure (5) Abdominal distension - Symptom Scale (1) Shortness of breath 0-10 Scale: Unable to quantify Comment: This is most likely from ascites and pleural effusion. Patient has had ultrasound guided thoracentesis on 03/05 with removal of 1200 mL's of clear, yellow fluid and ultrasound guided paracentesis on 06/25/18 with removal of 5700 mL's of clear fluid. (2) Pain Comment: From bedbound status, intubation and other interventions. (3) Debility 0-10 Scale: Unable to quantify Comment: Progressive. Patient has multiple ongoing comorbidities. Pertinent Non-Medical Issues: Psychosocial: Patient is originally from [facility]. She moved to [place] in 1983. She has been to her current for 29 years. 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 Patient has never had children. Spiritual: Patient is Jewish-open to blanket winder helper or senior director finance to visit. Legal: Patient has completed designation of healthcare surrogate form today 07/05. Ethical issues impacting care: None identified at this time Important Contacts: Healthcare surrogate -spouse-Higinio Lima [phone] Alternate healthcare surrogate-Nicholsoneileen Willard -[phone] Family friend-Keon Real [phone] . Prognosis: Mrs. Phoenix is a 72-year-old female with a past medical history of chronic lymphoid leukemia, asthma, diabetes mellitus, fatty liver, gout, arthritis, kidney disease, and thyroid disease. Patient presented to the emergency room on 06/25/18 for evaluation of generalized weakness, abdominal distention, shortness of breath and a painful bump on her head which she sustained from a fall from her water bed a week prior to presenting to the emergency room. Diagnostic EGD has showed that patient has liver cirrhosis. Clinical course complicated by shortness of breath, worsening renal function, and recurrent ascites. Given multiple ongoing comorbidities, patient remains at high risk for further complications, deterioration and decline. . Code Status: Alternative Code Plan: PLAN: Legal decision maker: Patient is currently intubated, sedated and is not able to participate in decision-making. It is not known with the patient will ever regain capacity to make medical decisions for himself. Patient has designated her spouse Higinio Lima as her healthcare surrogate and her neighbor NicholsonSudheer arellano is her alternate healthcare surrogate in the past when she was able to make medical decisions. Goals: Goals remain aggressive. Telephone conversation with patient`s spouse Higinio Lima, updated him on patient`s medical status. Notified him that patient has been mouthing to staff that she wants to go home. Patient`s spouse states that he wants to come and talk to her. If that is her wish to come home then she should come with hospice. He would want to talk to her first. Patient` s spouse will be coming and meeting with palliative care and probably hospice nurse probably today 07/14/18 but he is undecided on whether he will continue with aggressive treatment or transition to comfort care through hospice. Met with patient`s spouse at bedside who has expressed that he no longer wants any further aggressive treatment and wants patient to transition to comfort care only through hospice services. State of [place] DNR and Exhibit B & C signed and placed on the chart. Patient and spouse would like patient to be transferred to the care center today is she is still alive with hopes that she is transferred home after DME is delivered for her to go and home. Patient and spouse is aware that patient may not survive long enough to make it to the care center or home. . CODE STATUS: Alternate code-Intubation only SYMPTOMS: * Shortness of breath:This is most likely from ascites and pleural effusion. Patient has had ultrasound guided thoracentesis on 06/25/18 with removal of 1200 mL's of clear, yellow fluid and ultrasound guided paracentesis on 06/25/18 with removal of 5700 mL's of clear fluid. Patient had another therapeutic paracentesis with removal of 5900 mL's of clear red fluid. Intubated on 07/06/18 - due to confusion, tachypneic, desaturation and lethargy. Currently on FiO2 40 %. Right pigtail chest tube placed on 07/06/18. Pulmonology following. No recommendations at this time. * Pain: Patient can have pain from bedbound status, intubation and other interventions. She is currently on fentanyl infusion at 50 mcg/hr. medication appears adequate at this time. * Debility: Progressive. Patient has ongoing multiple comorbidities and has had multiple falls at home. Patient uses a wheeled walker at home. Physical therapy consulted, recommended PT at rehab. Palliative care will continue to follow the patient during hospital course as condition evolves, to assist patient/decision-maker with understanding of their medical conditions, weighing benefits/burdens of treatment options, for clarification of goals of treatment. Additionally will assist with any symptoms of palliative concern Attestation Attestation: To help prompt me to consider important information that might be impacting today's encounter and assessment, information from prior notes written by myself or my colleagues may have been "brought forward" into today's note. My signature on this note, however, is an attestation that I personally performed the exam, history, and/or decision-making noted today, and, unless otherwise indicated, the interactions with patient, family, and staff as well as the review of records all occurred today. I also attest that the listed assessment and stated plan reflect my best clinical judgment today based on the combination of historical information, prior notes, and today's exam/ interactions. When time spent is documented, it refers only to time spent today by the signer, or if indicated, combined time spent today by collaborating physician/nurse practitioner.
[2018-07-14 12:34] LABS: Baso # (Auto) 0.1 th/mm3 (0.0-0.2); Baso % (Auto) 0.2 % (0.0-2.0); Hematocrit 27.1 % (35.0-46.0); Hemoglobin 8.5 gm/dL (11.6-15.3); Lymph # (Auto) 26.4 th/mm3 (1.0-4.8); Lymph % (Auto) 64.3 % (9.0-44.0); Mean Corpuscular HGB Conc 31.3 % (32.0-36.0); Mean Corpuscular Hemoglobin 30.3 pg (27.0-34.0); Mean Corpuscular Volume 96.9 fL (80.0-100.0); Mean Platelet Volume 9.1 fL (7.0-11.0); Mono # (Auto) 1.1 th/mm3 (0.0-0.9); Mono % (Auto) 2.7 % (0.0-8.0); Neut # (Auto) 13.4 th/mm3 (1.8-7.7); Neut % (Auto) 32.8 % (16.0-70.0); Platelet Count 104 th/mm3 (150-450); Red Cell Distribution Width 22.6 % (11.6-17.2)
--- NOTE | 2018-07-14 12:52 | P.PNCC ---
Subjective Subjective Remarks/Hospital Course: This is a 72-year-old female. Admission 06/25/2008. Past medical history includes stage 0 CLL, asthma, diabetes, gout, hypertension and hypothyroidism. She initially presented to the hospital complaining of a several month history of progressive shortness of breath. This is associated orthopnea and difficulty ambulation. A dry nonproductive cough as well. No chest pain. On admission, patient was noted to have moderate ascites and a significant right pleural effusion. She received paracentesis on 06/25 5700 cc and on 06/28 5900 cc. She had a right-sided thoracentesis 1200 cc on 06/25. CT abdomen pelvis showed likely liver cirrhosis and moderate ascites. She also had a CT of the abdomen and pelvis which did not show any lymphadenopathy. She has not been febrile. She has had thoracentesis and they took out 1.2 L of fluid. 06/28 had an upper endoscopy. EGD revealed esophagitis, distal esophageal ulcer, portal hypertensive gastropathy. She started worsening renal failure and worsening leukocytosis. Due to the possibility of hepatorenal syndrome a TIPS was performed by IR 07/01. She has been on beta-ilana, diuretics and midodrine in the interim along with octreotide. Patient been pancultured which no growth today. Current levofloxacin and metronidazole. No obvious source of infection at the present time. The past couple nights patient is been in ICU. She is become more confused and will not keep her BiPAP on due to agitation. She is received 2 stenosis of lorazepam tonight. I was asked to see the patient due to worsening respiratory issues including tachypnea and altered mental status including unresponsive. PH is 7.35. PCO2 47. PO2 74. Base index -6. She is on a nonrebreather. She is intubated using 20 mg etomidate and 8.0 ET tube at 23 cm at lip. They were unable to pass an NG tube.. 07/07/18: Remains intubated sedated. Renal function is worsening creatinine close to 6 now. Remains anuric. Large right pleural effusion drained yesterday 1.4 L since pigtail chest tube placement. Currently sedated with fentanyl will wake up follows some commands 07/08/18: Patient remains intubated mildly sedated with fentanyl infusion. Remains anuric with worsening renal function. HD catheter was placed yesterday. Will initiate hemodialysis today per nephrology. Right chest tube with 700 mL output in the last 24 hours 07/09/18: Remains critical wearing ventilator support. Remains anuric hemodialysis started yesterday 2 L removed. Right pleural effusion improved with chest tube, left moderate large pleural effusion. Plan for thoracentesis and then start CPAP trials. 07/10: Patient remains intubated lightly sedated with fentanyl. Tolerate CPAP wakes up weakly following commands. Chest x-ray shows improved infiltrates. Right chest tube with 700 mL output in 24 hours. Left thoracentesis with 500 mL removed 07/11: Remains lethargic encephalopathy intermittently following commands. Oxygen requirement increased to 50% due to hypoxia. Tired out on CPAP at night. Plan for hemodialysis today attempt CPAP after hemodialysis today. WBC count trending up creatinine remains more than 5. Remains anuric 07/12: Remains sedated, orally intubated on mechanical ventilation. Tolerating tube feeds. Daily CPAP trials ongoing 07/13: Remains sedated, orally intubated on mechanical ventilation. Gets agitated on lightening sedation. Apneic episodes with CPAP trials. Attempted SIMV today. Borderline blood pressure so ordered IV albumin. Awaiting hemodialysis Subjective 07/14: Currently on CPAP trial. Status post hemodialysis. Patient states she wants to "go home". Remains on dopamine drip at 2 mcg/kg/min. . Objective Vital Signs / I&O: Vital Signs 07/13/18 14:05 07/13/18 16:00 07/13/18 17:31 Temperature 99.5 F Pulse Rate 69 Respiratory Rate 12 13 12 Blood Pressure 128/63 Pulse Oximetry 96 94 L 94 L 07/13/18 19:20 07/13/18 20:00 07/13/18 22:15 Temperature 98.9 F Pulse Rate 64 54 L Respiratory Rate 12 15 13 Blood Pressure 130/66 Pulse Oximetry 95 95 96 07/13/18 22:30 07/13/18 22:45 07/13/18 23:00 Temperature Pulse Rate 54 L 55 L 54 L Respiratory Rate 12 12 13 Blood Pressure 109/57 L 113/57 L 114/60 Pulse Oximetry 96 96 97 07/13/18 23:15 07/13/18 23:30 07/13/18 23:42 Temperature Pulse Rate 60 55 L Respiratory Rate 14 12 12 Blood Pressure 118/64 116/61 Pulse Oximetry 97 97 97 07/13/18 23:45 07/14/18 00:00 07/14/18 00:15 Temperature 98.2 F Pulse Rate 60 58 L 56 L Respiratory Rate 12 13 13 Blood Pressure 115/57 L 120/60 120/58 L Pulse Oximetry 94 L 93 L 96 07/14/18 00:30 07/14/18 00:45 07/14/18 01:00 Temperature Pulse Rate 54 L 56 L 53 L Respiratory Rate 12 13 12 Blood Pressure 120/60 117/58 L 117/56 L Pulse Oximetry 96 97 97 07/14/18 01:15 07/14/18 01:30 07/14/18 01:45 Temperature Pulse Rate 52 L 52 L 53 L Respiratory Rate 13 12 12 Blood Pressure 109/59 L 117/58 L 110/57 L Pulse Oximetry 97 98 98 07/14/18 02:00 07/14/18 02:15 07/14/18 02:30 Temperature Pulse Rate 54 L 52 L 51 L Respiratory Rate 13 13 12 Blood Pressure 113/60 113/56 L 114/59 L Pulse Oximetry 98 98 98 07/14/18 02:45 07/14/18 03:00 07/14/18 03:03 Temperature Pulse Rate 56 L 62 61 Respiratory Rate 14 24 24 Blood Pressure 116/56 L 131/60 Pulse Oximetry 97 98 98 07/14/18 03:15 07/14/18 03:30 07/14/18 03:45 Temperature Pulse Rate 58 L 60 54 L Respiratory Rate 13 17 13 Blood Pressure 132/60 132/67 120/60 Pulse Oximetry 98 99 98 07/14/18 04:00 07/14/18 04:10 07/14/18 04:15 Temperature 98.9 F Pulse Rate 62 53 L Respiratory Rate 14 13 12 Blood Pressure 122/60 108/56 L Pulse Oximetry 100 100 95 07/14/18 07:13 07/14/18 08:00 07/14/18 11:50 Temperature 98.3 F Pulse Rate 57 L Respiratory Rate 13 14 17 Blood Pressure 110/56 L Pulse Oximetry 99 97 98 Intake & Output 07/13/18 07/14/18 07/14/18 18:59 06:59 18:59 Intake Total 150 / 150 180 / 180 300 / 300 Output Total 120 / 120 250 / 250 Balance 30 / 30 -70 / -70 300 / 300 Weight 83.5 kg Intake: IV 50 / 50 300 / 300 Flexbumin 25% Inj 50 ML @ 60 50 / 50 mls/hr IV.SIG ONCE ONE Rx#: [id number] Flexbumin 25% Inj 100 ML @ 60 300 / 300 mls/hr IV.SIG WITH DIALYSIS PRN Rx#:[id number] Tube Feeding 0 / 0 120 / 120 Water Bolus Amount 100 / 100 60 / 60 Output: Urine 0 / 0 Chest Tube Drainage 120 / 120 250 / 250 #1 Right Mid-Axillary Chest 120 / 120 250 / 250 Other: Date of Last Bowel Movement 07/13/18 07/13/18 07/13/18 # Incontinent Bowel Movements 0 Result Diagrams: 07/14/18 12:16 07/13/18 09:02 Other Results: Microbiology 07/06/18 15:15 Fluid - Pleural fluid Acid Fast Bacilli Smear - Final No acid fast bacilli seen 07/06/18 15:15 Fluid - Pleural fluid Mycobacterial Culture - Preliminary No growth in 1 week 07/06/18 15:15 Fluid - Pleural fluid Fungal Smear - Final No fungal elements seen 07/06/18 15:15 Fluid - Pleural fluid Fungal Culture - Preliminary No growth in 1 week 07/09/18 11:20 Fluid - Pleural fluid Gram Stain - Final 07/09/18 11:20 Fluid - Pleural fluid Body Fluid Culture - Final No growth in 72 hours (aerobically and anaerobically ) 07/06/18 05:15 Blood - Peripheral Aerobic Blood Culture - Final No growth in 5 days 07/06/18 05:15 Blood - Peripheral Anaerobic Blood Culture - Final No growth in 5 days 07/06/18 05:20 Blood - Peripheral Aerobic Blood Culture - Final No growth in 5 days 07/06/18 05:20 Blood - Peripheral Anaerobic Blood Culture - Final No growth in 5 days 06/25/18 19:15 Fluid - Pleural fluid Fungal Smear - Final No fungal elements seen 06/25/18 19:15 Fluid - Pleural fluid Fungal Culture - Preliminary No growth in 2 weeks 06/25/18 17:15 Abscess - Chest Acid Fast Bacilli Smear - Final No acid fast bacilli seen 06/25/18 17:15 Abscess - Chest Mycobacterial Culture - Preliminary No growth in 2 weeks 06/25/18 17:45 Fluid - Peritoneal fluid Fungal Smear - Final No fungal elements seen 06/25/18 17:45 Fluid - Peritoneal fluid Fungal Culture - Preliminary No growth in 2 weeks 06/25/18 17:45 Fluid - Peritoneal fluid Acid Fast Bacilli Smear - Final No acid fast bacilli seen 06/25/18 17:45 Fluid - Peritoneal fluid Mycobacterial Culture - Preliminary No growth in 2 weeks 07/07/18 18:30 Catheterized Urine Urine Culture - Final No growth in 48 hours 07/06/18 15:15 Fluid - Pleural fluid Gram Stain - Final 07/06/18 15:15 Fluid - Pleural fluid Body Fluid Culture - Final No growth in 72 hours (aerobically and anaerobically ) 07/06/18 11:50 Sputum - Endotracheal Gram Stain - Final 07/06/18 11:50 Sputum - Endotracheal Sputum Culture - Final Moderate growth normal respiratory yaneth 07/06/18 08:10 Nasal Wash Influenza Types A,B Antigen - Final Negative for FLU A and B antigen Infection due to influenza A or B cannot be ruled out since the antigen present in the sample may be below the detection limit of the test. 06/25/18 17:15 Fluid - Pleural fluid Gram Stain - Final 06/25/18 17:15 Fluid - Pleural fluid Body Fluid Culture - Final No growth in 72 hours (aerobically and anaerobically ) 06/25/18 17:45 Fluid - Peritoneal fluid Gram Stain - Final 06/25/18 17:45 Fluid - Peritoneal fluid Body Fluid Culture - Final No growth in 72 hours (aerobically and anaerobically ) Imaging: Abdomen Ultrasound 06/25/18 00:00 CONCLUSION: 1. Moderate ascites 2. Hepatic cirrhosis Abdomen/Pelvis CT 06/25/18 00:00 CONCLUSION: 1. Suspected cirrhotic liver. 2. Mild to moderate amount of ascites. 3. Bilateral pleural effusions being mild on the right and minimal on the left. 4. Increased density at the inferior right middle lobe and right lower lobe likely related to consolidation or atelectasis. 5. Anasarca 6. Tiny nonobstructing left renal stone. Chest Ultrasound 06/25/18 00:00 CONCLUSION: 1. Large right pleural effusion without appreciable loculation. Chest X-Ray 06/25/18 00:00 CONCLUSION: No pneumothorax following right thoracentesis. Paracentesis Ultrasound 06/25/18 00:00 CONCLUSION: 1. Uncomplicated paracentesis. A suture was placed to gain hemostasis secondary to a small cutaneous venous bleed. This suture can be removed in 2-3 days. Thoracentesis Ultrasound 06/25/18 00:00 CONCLUSION: 1. Uncomplicated right thoracentesis. Chest X-Ray 06/25/18 06:47 CONCLUSION: Right mid lung and basilar density characteristic of a small to moderate pleural effusion with underlying airspace disease. Head CT 06/25/18 06:47 CONCLUSION: 1. Stable evaluation of the head. 2. No evidence of acute infarct, hemorrhage, mass or edema. . Chest X-Ray 06/28/18 10:46 CONCLUSION: Hypoaerated lungs. No evidence of significant airspace disease or congestion. Paracentesis Ultrasound 06/29/18 00:00 CONCLUSION: 1. Uncomplicated paracentesis. TIPS 07/01/18 00:00 CONCLUSION: 1. Uncomplicated fluoroscopic guided placement of TIPS shunts from the right hepatic vein to the right portal vein, as above. PLAN: Baseline ultrasound examination in 2 weeks with surveillance ultrasound at 3 months, 6 months and one year. Chest X-Ray 07/02/18 00:00 CONCLUSION: Radiographic findings concerning for possible congestive heart failure with severe pulmonary edema versus ARDS. Chest X-Ray 07/06/18 00:00 CONCLUSION: 1. Endotracheal tube in the right mainstem bronchus. This should be retracted at least 3 cm. 2. Patchy bilateral airspace disease, improved. Chest X-Ray 07/06/18 00:00 CONCLUSION: Endotracheal tube with tip at the orifice of the right mainstem bronchus. This should be retracted at least 2 cm. Chest X-Ray 07/06/18 00:00 CONCLUSION: Consolidative changes left base. ET tube above the james Chest X-Ray 07/06/18 00:52 CONCLUSION: 1. Diffuse bilateral airspace disease more prominent on current study. 2. Probable small pleural effusions. Abdomen X-Ray 07/06/18 11:06 CONCLUSION: Dobbhoff tube tip is noted within the expected region of the distal stomach. Chest X-Ray 07/07/18 00:00 CONCLUSION: Slight improvement in aeration. Chest X-Ray 07/07/18 06:00 CONCLUSION: Persistent left lower lobe consolidation. New nonconsolidative infiltrates in the right perihilar region. Chest X-Ray 07/09/18 00:00 CONCLUSION: Bibasilar areas of consolidation or atelectasis. Overall there is better aeration to lungs on the current exam. Chest X-Ray 07/09/18 06:00 CONCLUSION: Pulmonary vascular congestion. Bilateral pleural effusions left greater than right. Tubes and catheters are stable. Chest X-Ray 07/10/18 06:00 CONCLUSION: Tube and catheters in good position. Bilateral airspace disease most prominently in the right lung base Chest X-Ray 07/11/18 06:00 CONCLUSION: 1. Stable tubes and lines, as above. 2. Stable right-sided chest tube without pneumothorax. 3. Slightly improved patchy airspace disease in the right lower lung zone. 4. Persistent left lower lung zone airspace disease. Chest X-Ray 07/12/18 06:00 CONCLUSION: 1. Right-sided chest tube has been retracted but remains in the inferior hemithorax. No pneumothorax. 2. Remaining tubes and lines are stable. 3. Persistent bilateral lower lung zone airspace disease. Objective Remarks: Constitutional 72-year-old female orotracheally intubated on CPAP trial - Routine HEENT Exam Head: Present: normocephalic, atraumatic Eye: Present: EOMI, PERRL ENT: Present: Orotracheally intubated. Left IJ Hemovac catheter is clean dry and intact. - Routine Neck Exam Present: supple, full ROM. Absent: JVD Bandage from tips in right neck - Routine Respiratory Exam Present: Mechanically ventilated, crackles, distant breath sounds, diminished air movement. R pigtail catheter in place - Routine Cardiovascular Exam Present: RRR, S1, S2. Absent: murmur - Routine Abdominal Exam Present: soft, normoactive bowel sounds - Routine Skin Exam Present: intact, dry. Absent: cyanosis, erythema - Routine Neurological Exam Intubated. Arousable and wakes up follows commands x4, but weakly, repeat examination. No focal deficits Assessment and Plan - Assessment and Plan Plan: Neuro/Psych: Acute metabolic encephalopathy CO2 narcosis Currently off all sedation Goal of RASS0. Ammonia level <10 CT brain 06/25 revealed no acute intracranial findings On lightening sedation patient continues to follow commands. Appropriate and follows commands simple command currently CV: Essential hypertension Bradycardia Holding nadolol 20 mg daily hold due to bradycardia, continue midodrine 10 mg 3 times daily Hemodialysis started for fluid removal no response to IV Lasix Echocardiogram -EF 55-60%. Normal LV systolic function. Trace mitral valve regurgitation. Mitral annular calcification is present. Cannot rule out a small mobile echodensity on the left ventricular side of the anterior leaflet towards the left ventricular outflow tract in parasternal views. Clinical correlation recommended there is trace tricuspid valve regurgitation. The estimated pulmonary arterial pressure is 38 mmHg. Blood cultures have been negative Resp: Acute hypoxemic respiratory failure Right pleural effusion status post thoracentesis 06/25 -1200 cc, right pigtail chest tube placement 07/06/2018 PRVC ventilation. Head of bed at 30 degrees. Apneic episodes with CPAP trials hence attempted SIMV with pressure support today Ventilator bundle. Albuterol/ipratropium aerosols every 4 hours with albuterol every 2 hours as needed dyspnea Right pigtail chest tube placed 07/06/2018, with 1.4 L drained initially. Currently more is 40 cmH2O Status post left thoracentesis 07/09/2018 with 500 mL removed GI: Portal hypertensive gastropathy LA class B esophagitis Distal esophageal ulcer Ascites -paracentesis 5700 cc 06/25. 5900 cc 06/28 Status post TIPS 07/01 for possible hepatorenal syndrome CT abdomen/pelvis 06/25 revealed cirrhotic type liver. Left-sided hydronephrosis. Moderate ascites EGD 06/28 revealed LA class B esophagitis. 7 mm distal esophageal ulcer. Portal hypertensive gastropathy.H. pylori negative. Continue midodrine. On octreotide 50 mcg IV every 8 hours for portal hypertension gastropathy, HRS Pantoprazole 40 mg IV daily. Discontinued Aldactone due to worsening renal failure Being followed by GI. Negative CA-19-9, alpha-fetoprotein, beta-hCG. Negative hepatitis panel Endo: Diabetes mellitus Hypothyroidism Gout Sliding scale insulin Accu-Cheks to maintain euglycemia/low every 6 hours aspart insulin Holding glipizide 5 mg daily/home medication Patient is on levothyroxine 300 mcg daily. Patient is on allopurinol at home. 100 mg daily continue Renal: Acute kidney failure Monitor urine output. Accurate I's and O's. Currently remains anuric. Hemodialysis catheter placed, started hemodialysis 07/08/2018 Can discontinue Madsen if okay with nephrology Avoid nephrotoxic medication No hydronephrosis on CT abdomen/pelvis on admission Nephrology Dr. Busby Heme: CLL [id number] score 0 Leukocytosis Normocytic anemia Followed by Dr. Flores/oncology. Follow-up on coags, CBC Currently no indication for transfusion of blood products at this time. ID: Followed by infectious disease. Currently levofloxacin. metronidazole has been discontinued Peritoneal and pleural fluid 06/25 no growth today. Pleural fluid no growth to date F/U blood cultures x2, sputum, UA and influenza a and B negative Access-utilize peripheral IV. Central line if indicated Prophylaxis -GI -pantoprazole -DVT -SCDs/heparin subcu Level to follow.
[2018-07-14 13:51] LABS: Monocytes 1 % (0-8)
[2018-07-14 13:52] LABS: Lymphocytes 71 % (9-44); Smudge Cells Present
[2018-07-14 13:53] LABS: Platelet Morphology Normal (Normal)
--- NOTE | 2018-07-14 13:55 | P.PNNP ---
Subjective Interval history: Patient was seen during dialysis, on 3K, blood flow rate of 350 ml/min, UF goal of 800 ml. Was mouthing "I to go home" and "it's my choice". Remains orally intubated on mechanical ventilation at 40% FiO2. Patient appears more jaundiced today. <Des Arora - Last Filed: 07/14/18 13:48> Physical Exam Vital signs: Vital Signs 07/13/18 14:05 07/13/18 16:00 07/13/18 17:31 Temperature 99.5 F Pulse Rate 69 Respiratory Rate 12 13 12 Blood Pressure 128/63 Pulse Oximetry 96 94 L 94 L 07/13/18 19:20 07/13/18 20:00 07/13/18 22:15 Temperature 98.9 F Pulse Rate 64 54 L Respiratory Rate 12 15 13 Blood Pressure 130/66 Pulse Oximetry 95 95 96 07/13/18 22:30 07/13/18 22:45 07/13/18 23:00 Temperature Pulse Rate 54 L 55 L 54 L Respiratory Rate 12 12 13 Blood Pressure 109/57 L 113/57 L 114/60 Pulse Oximetry 96 96 97 07/13/18 23:15 07/13/18 23:30 07/13/18 23:42 Temperature Pulse Rate 60 55 L Respiratory Rate 14 12 12 Blood Pressure 118/64 116/61 Pulse Oximetry 97 97 97 07/13/18 23:45 07/14/18 00:00 07/14/18 00:15 Temperature 98.2 F Pulse Rate 60 58 L 56 L Respiratory Rate 12 13 13 Blood Pressure 115/57 L 120/60 120/58 L Pulse Oximetry 94 L 93 L 96 07/14/18 00:30 07/14/18 00:45 07/14/18 01:00 Temperature Pulse Rate 54 L 56 L 53 L Respiratory Rate 12 13 12 Blood Pressure 120/60 117/58 L 117/56 L Pulse Oximetry 96 97 97 07/14/18 01:15 07/14/18 01:30 07/14/18 01:45 Temperature Pulse Rate 52 L 52 L 53 L Respiratory Rate 13 12 12 Blood Pressure 109/59 L 117/58 L 110/57 L Pulse Oximetry 97 98 98 07/14/18 02:00 07/14/18 02:15 07/14/18 02:30 Temperature Pulse Rate 54 L 52 L 51 L Respiratory Rate 13 13 12 Blood Pressure 113/60 113/56 L 114/59 L Pulse Oximetry 98 98 98 07/14/18 02:45 07/14/18 03:00 07/14/18 03:03 Temperature Pulse Rate 56 L 62 61 Respiratory Rate 14 24 24 Blood Pressure 116/56 L 131/60 Pulse Oximetry 97 98 98 07/14/18 03:15 07/14/18 03:30 07/14/18 03:45 Temperature Pulse Rate 58 L 60 54 L Respiratory Rate 13 17 13 Blood Pressure 132/60 132/67 120/60 Pulse Oximetry 98 99 98 07/14/18 04:00 07/14/18 04:10 07/14/18 04:15 Temperature 98.9 F Pulse Rate 62 53 L Respiratory Rate 14 13 12 Blood Pressure 122/60 108/56 L Pulse Oximetry 100 100 95 07/14/18 07:13 07/14/18 08:00 07/14/18 11:50 Temperature 98.3 F Pulse Rate 57 L Respiratory Rate 13 14 17 Blood Pressure 110/56 L Pulse Oximetry 99 97 98 Intake & Output 07/13/18 07/14/18 07/14/18 18:59 06:59 18:59 Intake Total 150 / 150 180 / 180 300 / 300 Output Total 120 / 120 250 / 250 500 / 500 Balance 30 / 30 -70 / -70 -200 / -200 Weight 83.5 kg Intake: IV 50 / 50 300 / 300 Flexbumin 25% Inj 50 ML @ 60 50 / 50 mls/hr IV.SIG ONCE ONE Rx#: [id number] Flexbumin 25% Inj 100 ML @ 60 300 / 300 mls/hr IV.SIG WITH DIALYSIS PRN Rx#:[id number] Tube Feeding 0 / 0 120 / 120 Water Bolus Amount 100 / 100 60 / 60 Output: Urine 0 / 0 Hemodialysis Amount 500 / 500 Chest Tube Drainage 120 / 120 250 / 250 #1 Right Mid-Axillary Chest 120 / 120 250 / 250 Other: Date of Last Bowel Movement 07/13/18 07/13/18 07/13/18 # Incontinent Bowel Movements 0 Narrative: GENERAL: Chronically ill appearing. Agitated. SKIN: Jaundiced. CARDIOVASCULAR: S1, S2 normal. No JVD. Peripheral pulses symmetric. RESPIRATORY/CHEST: Symmetric. Diminished breath sounds right pigtail chest tube to suction. No wheezes, rales, or rhonchi. ABDOMEN: Soft, non-tender. NEUROLOGICAL: Responds to pain. - Urinary Catheter Management Straight Cath placed during this visit: yes, but has since been removed by the nurse Reason for continuing: Not indwelling catheter Insertion date: 07/07/18 Insertion time: 18:00 Removal date: 07/07/18 Removal time: 18:20 <Des Arora - Last Filed: 07/14/18 13:48> Vital signs: Vital Signs 07/13/18 16:00 07/13/18 17:31 07/13/18 19:20 Temperature 99.5 F Pulse Rate 69 Respiratory Rate 13 12 12 Blood Pressure 128/63 Pulse Oximetry 94 L 94 L 95 07/13/18 20:00 07/13/18 22:15 07/13/18 22:30 Temperature 98.9 F Pulse Rate 64 54 L 54 L Respiratory Rate 15 13 12 Blood Pressure 130/66 109/57 L Pulse Oximetry 95 96 96 07/13/18 22:45 07/13/18 23:00 07/13/18 23:15 Temperature Pulse Rate 55 L 54 L 60 Respiratory Rate 12 13 14 Blood Pressure 113/57 L 114/60 118/64 Pulse Oximetry 96 97 97 07/13/18 23:30 07/13/18 23:42 07/13/18 23:45 Temperature Pulse Rate 55 L 60 Respiratory Rate 12 12 12 Blood Pressure 116/61 115/57 L Pulse Oximetry 97 97 94 L 07/14/18 00:00 07/14/18 00:15 07/14/18 00:30 Temperature 98.2 F Pulse Rate 58 L 56 L 54 L Respiratory Rate 13 13 12 Blood Pressure 120/60 120/58 L 120/60 Pulse Oximetry 93 L 96 96 07/14/18 00:45 07/14/18 01:00 07/14/18 01:15 Temperature Pulse Rate 56 L 53 L 52 L Respiratory Rate 13 12 13 Blood Pressure 117/58 L 117/56 L 109/59 L Pulse Oximetry 97 97 97 07/14/18 01:30 07/14/18 01:45 07/14/18 02:00 Temperature Pulse Rate 52 L 53 L 54 L Respiratory Rate 12 12 13 Blood Pressure 117/58 L 110/57 L 113/60 Pulse Oximetry 98 98 98 07/14/18 02:15 07/14/18 02:30 07/14/18 02:45 Temperature Pulse Rate 52 L 51 L 56 L Respiratory Rate 13 12 14 Blood Pressure 113/56 L 114/59 L 116/56 L Pulse Oximetry 98 98 97 07/14/18 03:00 07/14/18 03:03 07/14/18 03:15 Temperature Pulse Rate 62 61 58 L Respiratory Rate 24 24 13 Blood Pressure 131/60 132/60 Pulse Oximetry 98 98 98 07/14/18 03:30 07/14/18 03:45 07/14/18 04:00 Temperature Pulse Rate 60 54 L 62 Respiratory Rate 17 13 14 Blood Pressure 132/67 120/60 122/60 Pulse Oximetry 99 98 100 07/14/18 04:10 07/14/18 04:15 07/14/18 07:13 Temperature 98.9 F Pulse Rate 53 L Respiratory Rate 13 12 13 Blood Pressure 108/56 L Pulse Oximetry 100 95 99 07/14/18 08:00 07/14/18 11:50 Temperature 98.3 F Pulse Rate 57 L Respiratory Rate 14 17 Blood Pressure 110/56 L Pulse Oximetry 97 98 Intake & Output 07/13/18 07/14/18 07/14/18 18:59 06:59 18:59 Intake Total 150 / 150 180 / 180 300 / 300 Output Total 120 / 120 250 / 250 500 / 500 Balance 30 / 30 -70 / -70 -200 / -200 Weight 83.5 kg Intake: IV 50 / 50 300 / 300 Flexbumin 25% Inj 50 ML @ 60 50 / 50 mls/hr IV.SIG ONCE ONE Rx#: [id number] Flexbumin 25% Inj 100 ML @ 60 300 / 300 mls/hr IV.SIG WITH DIALYSIS PRN Rx#:[id number] Tube Feeding 0 / 0 120 / 120 Water Bolus Amount 100 / 100 60 / 60 Output: Urine 0 / 0 Hemodialysis Amount 500 / 500 Chest Tube Drainage 120 / 120 250 / 250 #1 Right Mid-Axillary Chest 120 / 120 250 / 250 Other: Date of Last Bowel Movement 07/13/18 07/13/18 07/13/18 # Incontinent Bowel Movements 0 - Urinary Catheter Management Straight Cath placed during this visit: no <Papi Busby - Last Filed: 07/14/18 15:08> Assessment and Plan - Assessment (1) Acute on chronic kidney failure Code(s): N17.9 - Acute kidney failure, unspecified; N18.9 - Chronic kidney disease, unspecified Status: Acute Plan: It is suspected patient has Hepatorenal syndrome. Patient is not a good candidate for dialysis, patient and family previously informed. wanted all aggressive measures. Dialysis will not change her outcome. She may be terminally ill. Patient was seen during dialysis, on 3K, blood flow rate of 350 ml/min, UF goal of 800 ml. (2) Diabetes Code(s): E11.9 - Type 2 diabetes mellitus without complications Status: Acute Plan: Insulin coverage to maintain glucose levels between 140 and 180. (3) Abdominal distension Code(s): R14.0 - Abdominal distension (gaseous) Status: Acute Plan: s/p paracentesis x2. (4) Cirrhosis Code(s): K74.60 - Unspecified cirrhosis of liver Status: Acute Plan: - Plan S/P TIPS procedure 07/01/18 <Des Arora - Last Filed: 07/14/18 13:48> - Assessment (1) Acute on chronic kidney failure Code(s): N17.9 - Acute kidney failure, unspecified; N18.9 - Chronic kidney disease, unspecified Status: Acute (2) Diabetes Code(s): E11.9 - Type 2 diabetes mellitus without complications Status: Acute (3) Abdominal distension Code(s): R14.0 - Abdominal distension (gaseous) Status: Acute (4) Cirrhosis Code(s): K74.60 - Unspecified cirrhosis of liver Status: Acute - Attending Attestation patient was seen and examined. Very poor prognosis. It appears that patient does not want continued aggressive measures. <Papi Busby - Last Filed: 07/14/18 15:08>
[2018-07-14] MEDS ORDERED: Hyoscyamine Inj 0.5 MG/ML Ampul IV.PUSH PRN (14:09)
[2018-07-14] MEDS ORDERED: HYDROmorphone PF Inj 0.5 MG/0.5 ML Syringe IV.PUSH ONE ×2 (14:09)
[2018-07-14] MEDS ORDERED: HYDROmorphone PF Inj 0.5 MG/0.5 ML Syringe IV.PUSH PRN (14:09)
[2018-07-14] MEDS ORDERED: Bisacodyl 10 MG Supp RECTAL PRN (14:09)
[2018-07-14] MEDS ORDERED: Hyoscyamine Inj 0.5 MG/ML Ampul IV.PUSH ONE (14:09)
--- NOTE | 2018-07-14 14:10 | P.DS ---
Date of admission: 06/25/18 10:18 Primary care physician: UNKNOWN Attending physician on discharge: Darryl Hernandez Anticipated date of discharge: 07/14/18 Brief History from admission: This patient is a 72 y/o female with history of asthma, diabetes and leukemia who presented to ER with shortness of breath. she says that she's had sob over the past two months but it seems to be getting worse to the extent that now she can hardly walk. she reports two-pillow orthopnea and occasional cough. she had some on and off low-grade fever and chills. she's also complaining of worsening abdominal distention and swelling of the legs. she says that he had a few falls recently because of sob and generalized weakness. Patient update on day of discharge: Patient wishes to go home. Will extubate the event withdrawal protocol. Do not reintubate. Plan is to discharge home later on this afternoon via the hospice. DS: Diagnosis - Discharge Diagnosis (1) Acute kidney injury Status: Acute Diagnosis: Principal (2) Diabetes Status: Chronic Diagnosis: Principal (3) Acute hypoxemic respiratory failure Status: Acute Diagnosis: Principal (4) Sepsis Status: Acute Diagnosis: Principal (5) Leukemia Status: Acute Diagnosis: Secondary DS: Medications - Discharge Medications Prescriptions: midodrine 10 mg PO TID@0700,1200,1700 #90 tab nadolol 20 mg PO DAILY #30 tab pantoprazole 40 mg PO DAILY #30 tab DS: Summary Hospital Course: This is a 72-year-old female. Admission 06/25/2008. Past medical history includes stage 0 CLL, asthma, diabetes, gout, hypertension and hypothyroidism. She initially presented to the hospital complaining of a several month history of progressive shortness of breath. This is associated orthopnea and difficulty ambulation. A dry nonproductive cough as well. No chest pain. On admission, patient was noted to have moderate ascites and a significant right pleural effusion. She received paracentesis on 06/25 5700 cc and on 06/28 5900 cc. She had a right-sided thoracentesis 1200 cc on 06/25. CT abdomen pelvis showed likely liver cirrhosis and moderate ascites. She also had a CT of the abdomen and pelvis which did not show any lymphadenopathy. She has not been febrile. She has had thoracentesis and they took out 1.2 L of fluid. 06/28 had an upper endoscopy. EGD revealed esophagitis, distal esophageal ulcer, portal hypertensive gastropathy. She started worsening renal failure and worsening leukocytosis. Due to the possibility of hepatorenal syndrome a TIPS was performed by IR 07/01. She has been on beta-ilana, diuretics and midodrine in the interim along with octreotide. Patient been pancultured which no growth today. Current levofloxacin and metronidazole. No obvious source of infection at the present time. The past couple nights patient is been in ICU. She is become more confused and will not keep her BiPAP on due to agitation. She is received 2 stenosis of lorazepam tonight. I was asked to see the patient due to worsening respiratory issues including tachypnea and altered mental status including unresponsive. PH is 7.35. PCO2 47. PO2 74. Base index -6. She is on a nonrebreather. She is intubated using 20 mg etomidate and 8.0 ET tube at 23 cm at lip. They were unable to pass an NG tube.. 07/07/18: Remains intubated sedated. Renal function is worsening creatinine close to 6 now. Remains anuric. Large right pleural effusion drained yesterday 1.4 L since pigtail chest tube placement. Currently sedated with fentanyl will wake up follows some commands 07/08/18: Patient remains intubated mildly sedated with fentanyl infusion. Remains anuric with worsening renal function. HD catheter was placed yesterday. Will initiate hemodialysis today per nephrology. Right chest tube with 700 mL output in the last 24 hours 07/09/18: Remains critical wearing ventilator support. Remains anuric hemodialysis started yesterday 2 L removed. Right pleural effusion improved with chest tube, left moderate large pleural effusion. Plan for thoracentesis and then start CPAP trials. 07/10: Patient remains intubated lightly sedated with fentanyl. Tolerate CPAP wakes up weakly following commands. Chest x-ray shows improved infiltrates. Right chest tube with 700 mL output in 24 hours. Left thoracentesis with 500 mL removed 07/11: Remains lethargic encephalopathy intermittently following commands. Oxygen requirement increased to 50% due to hypoxia. Tired out on CPAP at night. Plan for hemodialysis today attempt CPAP after hemodialysis today. WBC count trending up creatinine remains more than 5. Remains anuric 07/12: Remains sedated, orally intubated on mechanical ventilation. Tolerating tube feeds. Daily CPAP trials ongoing 07/13: Remains sedated, orally intubated on mechanical ventilation. Gets agitated on lightening sedation. Apneic episodes with CPAP trials. Attempted SIMV today. Borderline blood pressure so ordered IV albumin. Awaiting hemodialysis Subjective 07/14: Currently on CPAP trial. Status post hemodialysis. Patient states she wants to "go home". Remains on dopamine drip at 2 mcg/kg/min. . - Time Spent with Patient Total time spent providing and/or coordinating discharge services: Less than 30 minutes - Quality: VTE Deep Vein Thrombosis/Pulmonary Embolism Present on Admission: No Exam Vital signs: Vital Signs 07/13/18 16:00 07/13/18 17:31 07/13/18 19:20 Temperature 99.5 F Pulse Rate 69 Respiratory Rate 13 12 12 Blood Pressure 128/63 Pulse Oximetry 94 L 94 L 95 07/13/18 20:00 07/13/18 22:15 07/13/18 22:30 Temperature 98.9 F Pulse Rate 64 54 L 54 L Respiratory Rate 15 13 12 Blood Pressure 130/66 109/57 L Pulse Oximetry 95 96 96 07/13/18 22:45 07/13/18 23:00 07/13/18 23:15 Temperature Pulse Rate 55 L 54 L 60 Respiratory Rate 12 13 14 Blood Pressure 113/57 L 114/60 118/64 Pulse Oximetry 96 97 97 07/13/18 23:30 07/13/18 23:42 07/13/18 23:45 Temperature Pulse Rate 55 L 60 Respiratory Rate 12 12 12 Blood Pressure 116/61 115/57 L Pulse Oximetry 97 97 94 L 07/14/18 00:00 07/14/18 00:15 07/14/18 00:30 Temperature 98.2 F Pulse Rate 58 L 56 L 54 L Respiratory Rate 13 13 12 Blood Pressure 120/60 120/58 L 120/60 Pulse Oximetry 93 L 96 96 07/14/18 00:45 07/14/18 01:00 07/14/18 01:15 Temperature Pulse Rate 56 L 53 L 52 L Respiratory Rate 13 12 13 Blood Pressure 117/58 L 117/56 L 109/59 L Pulse Oximetry 97 97 97 07/14/18 01:30 07/14/18 01:45 07/14/18 02:00 Temperature Pulse Rate 52 L 53 L 54 L Respiratory Rate 12 12 13 Blood Pressure 117/58 L 110/57 L 113/60 Pulse Oximetry 98 98 98 07/14/18 02:15 07/14/18 02:30 07/14/18 02:45 Temperature Pulse Rate 52 L 51 L 56 L Respiratory Rate 13 12 14 Blood Pressure 113/56 L 114/59 L 116/56 L Pulse Oximetry 98 98 97 07/14/18 03:00 07/14/18 03:03 07/14/18 03:15 Temperature Pulse Rate 62 61 58 L Respiratory Rate 24 24 13 Blood Pressure 131/60 132/60 Pulse Oximetry 98 98 98 07/14/18 03:30 07/14/18 03:45 07/14/18 04:00 Temperature Pulse Rate 60 54 L 62 Respiratory Rate 17 13 14 Blood Pressure 132/67 120/60 122/60 Pulse Oximetry 99 98 100 07/14/18 04:10 07/14/18 04:15 07/14/18 07:13 Temperature 98.9 F Pulse Rate 53 L Respiratory Rate 13 12 13 Blood Pressure 108/56 L Pulse Oximetry 100 95 99 07/14/18 08:00 07/14/18 11:50 Temperature 98.3 F Pulse Rate 57 L Respiratory Rate 14 17 Blood Pressure 110/56 L Pulse Oximetry 97 98 Intake & Output 07/13/18 07/14/18 07/14/18 18:59 06:59 18:59 Intake Total 150 / 150 180 / 180 300 / 300 Output Total 120 / 120 250 / 250 500 / 500 Balance 30 / 30 -70 / -70 -200 / -200 Weight 83.5 kg Intake: IV 50 / 50 300 / 300 Flexbumin 25% Inj 50 ML @ 60 50 / 50 mls/hr IV.SIG ONCE ONE Rx#: [id number] Flexbumin 25% Inj 100 ML @ 60 300 / 300 mls/hr IV.SIG WITH DIALYSIS PRN Rx#:[id number] Tube Feeding 0 / 0 120 / 120 Water Bolus Amount 100 / 100 60 / 60 Output: Urine 0 / 0 Hemodialysis Amount 500 / 500 Chest Tube Drainage 120 / 120 250 / 250 #1 Right Mid-Axillary Chest 120 / 120 250 / 250 Other: Date of Last Bowel Movement 07/13/18 07/13/18 07/13/18 # Incontinent Bowel Movements 0 Narrative: Constitutional 72-year-old female orotracheally intubated on CPAP trial - Routine HEENT Exam Head: Present: normocephalic, atraumatic Eye: Present: EOMI, PERRL ENT: Present: Orotracheally intubated. Left IJ Hemovac catheter is clean dry and intact. - Routine Neck Exam Present: supple, full ROM. Absent: JVD Bandage from tips in right neck - Routine Respiratory Exam Present: Mechanically ventilated, crackles, distant breath sounds, diminished air movement. R pigtail catheter in place - Routine Cardiovascular Exam Present: RRR, S1, S2. Absent: murmur - Routine Abdominal Exam Present: soft, normoactive bowel sounds - Routine Skin Exam Present: intact, dry. Absent: cyanosis, erythema - Routine Neurological Exam Intubated. Arousable and wakes up follows commands x4, but weakly, repeat examination. No focal defici Results Procedures completed during hospitalization: TIPS Right chest tube/pigtail catheter Left IJ hemodialysis catheter Completed studies during hospitalization: Pending at discharge 06/28/18 12:43 Surgical [PTH] Routine Pending studies at discharge: None Labs on day of discharge: Labs from last 24 hours 07/14/18 07/14/18 07/14/18 12:16 05:49 04:23 WBC 41.0 H RBC 2.80 L Hgb 8.5 L Hct 27.1 L MCV 96.9 MCH 30.3 MCHC 31.3 L RDW 22.6 H Plt Count 104 L D MPV 9.1 Prelim Diff (Auto) Slide review pending Neut % (Auto) 32.8 Lymph % (Auto) 64.3 H [place] % (Auto) 2.7 Eos % (Auto) 0.0 Baso % (Auto) 0.2 Neut # (Auto) 13.4 H Lymph # (Auto) 26.4 H [place] # (Auto) 1.1 H Eos # (Auto) 0.0 Baso # (Auto) 0.1 WBC Differential Manual diff final Seg Neuts % (Manual) 28 Lymphocytes % (Manual) 71 H Monocytes % (Manual) 1 Abs Neuts (Manual) 11.5 H Differential Comment . Smudge Cells Present H Platelet Estimate Low L Platelet Morphology Normal POC Glucose 200 H Phosphorus 5.2 H D 07/13/18 07/13/18 23:41 17:00 WBC RBC Hgb Hct MCV MCH MCHC RDW Plt Count MPV Prelim Diff (Auto) Neut % (Auto) Lymph % (Auto) [place] % (Auto) Eos % (Auto) Baso % (Auto) Neut # (Auto) Lymph # (Auto) [place] # (Auto) Eos # (Auto) Baso # (Auto) WBC Differential Seg Neuts % (Manual) Lymphocytes % (Manual) Monocytes % (Manual) Abs Neuts (Manual) Differential Comment Smudge Cells Platelet Estimate Platelet Morphology POC Glucose 181 H 158 H Phosphorus Preliminary micro results at discharge 07/06/18 15:15 Mycobacterial Culture - Preliminary Fluid - Pleural fluid No growth in 1 week 07/06/18 15:15 Fungal Culture - Preliminary Fluid - Pleural fluid No growth in 1 week 06/25/18 19:15 Fungal Culture - Preliminary Fluid - Pleural fluid No growth in 2 weeks 06/25/18 17:15 Mycobacterial Culture - Preliminary Abscess - Chest No growth in 2 weeks 06/25/18 17:45 Fungal Culture - Preliminary Fluid - Peritoneal fluid No growth in 2 weeks 06/25/18 17:45 Mycobacterial Culture - Preliminary Fluid - Peritoneal fluid No growth in 2 weeks - Impressions ITS Impressions Abdomen Ultrasound 06/25/18 00:00 CONCLUSION: 1. Moderate ascites 2. Hepatic cirrhosis Abdomen/Pelvis CT 06/25/18 00:00 CONCLUSION: 1. Suspected cirrhotic liver. 2. Mild to moderate amount of ascites. 3. Bilateral pleural effusions being mild on the right and minimal on the left. 4. Increased density at the inferior right middle lobe and right lower lobe likely related to consolidation or atelectasis. 5. Anasarca 6. Tiny nonobstructing left renal stone. Chest Ultrasound 06/25/18 00:00 CONCLUSION: 1. Large right pleural effusion without appreciable loculation. Thoracentesis Ultrasound 06/25/18 00:00 CONCLUSION: 1. Uncomplicated right thoracentesis. Head CT 06/25/18 06:47 CONCLUSION: 1. Stable evaluation of the head. 2. No evidence of acute infarct, hemorrhage, mass or edema. . Paracentesis Ultrasound 06/29/18 00:00 CONCLUSION: 1. Uncomplicated paracentesis. TIPS 07/01/18 00:00 CONCLUSION: 1. Uncomplicated fluoroscopic guided placement of TIPS shunts from the right hepatic vein to the right portal vein, as above. PLAN: Baseline ultrasound examination in 2 weeks with surveillance ultrasound at 3 months, 6 months and one year. Abdomen X-Ray 07/06/18 11:06 CONCLUSION: Dobbhoff tube tip is noted within the expected region of the distal stomach. Chest X-Ray 07/12/18 06:00 CONCLUSION: 1. Right-sided chest tube has been retracted but remains in the inferior hemithorax. No pneumothorax. 2. Remaining tubes and lines are stable. 3. Persistent bilateral lower lung zone airspace disease. Discharge Plan - Discharge Disposition Patient Disposition: 01 Discharge Home - Discharge Condition Condition: Critical - Discharge Order Discharge Orders: Discharge Order (Routine); Ordered 07/14/18 Ordered By: Darryl Hernandez ED Use Only Admit Order (Routine); Ordered 06/25/18 Ordered By: Anoop Dennis - Discharge Details Anticipated Discharge Date: 07/05/18 - Physicians Team Primary Care Provider: UNKNOWN, Attending Provider: Darryl Hernandez Other Providers: Johan Wilkerson MD ; Dina Garza MD ; Goldie Daniels MD ; Papi Busby MD ; Alvin Esquivel ; Sherron Gipson MD ; Paulette Flores Fernando B, MD ; Darryl Hernandez MD
[2018-07-14] MEDS ORDERED: HYDROmorphone PF Inj 2 MG/ML Vial IV.PUSH PRN (14:38)
[2018-07-14] MEDS ORDERED: HYDROmorphone PF Inj 2 MG/ML Vial IV.PUSH ONE ×2 (14:45)
[2018-07-14] MEDS ORDERED: HYDROmorphone PF Inj 0.5 MG/0.5 ML Syringe IV.PUSH SCH (16:00)
--- NOTE | 2018-07-14 16:00 | P.DIET ---
Nutritional Evaluation Type of nutrition evaluation: initial Nutrition consult regarding: Tube Feeding Screening comments: 07/08 TF review Objective - Diagnosis RML PNA, hypoxic respiratory failure - Objective % IBW: 204 (IBW = 85lb) Body Weight Used for Calculations: Actual (79kg) Energy Needs - Lower Range (kCal/kg): 22 Energy Needs - Upper Range (kCal/kg): 28 Lower Limit kCal/kg (kCals): 1,738 Upper Limit kCal/kg (kCals): 2,380 Lower Limit Protein Factor (Grams per Kg): 1.2 Upper Limit Protein Factor (Grams per Kg): 1.5 Lower Protein Needs (Protein): 95 Upper Protein Needs (Protein): 119 Dietitian Reviewed in Medical Record: Curent medications, Intake & Output, Labs , Medical history, Tube feeding Diet Order: NPO Objective Comments: PMH: chronic lymphoid leukemia, DM, fatty liver, gout, HTN, kidney disease, thyroid disease Meds: Synthroid Labs: BUN 64, Cr 5.33, estGFR 8, POC glucose 178 181 200 LBM 07/13 Skin: R upper buttocks pressure injuries Assessment Assessment: Pt currently awake, intubated, off sedation and on mech vent. Pt was dialyzed today 07/14/18. Pt still receiving Nepro 1.8 @ 30mL/hr, w/ 45mL/hr as goal rate per MD which provides around 60% of pts assessed nutritional needs. RD to recommend Nepro 1.8 @ 55mL x 22hrs (d/t Synthroid dosing) to provide 2178kcal, 98g of protein, and 880mL of free water to best meet pts assessed needs. Continue to monitor TF tolerance and renal labs. Labs reviewed, dietitian following. Recommendations: 1. RD to recommend Nepro 1.8 @ 55mL x 22hrs (d/t Synthroid dosing) to best meet pts assessed needs 2. Continue to monitor TF tolerance and renal labs 3. Dietitian following Dietitian to Monitor: Lab values, Renal labs, Glucose level, Intake & Output, Tube feeding tolerance, Weight change, Medical course
[2018-07-14] MEDS: HYDROmorphone PF Inj 2 MG/ML Vial IV.PUSH SCH ×2 (17:30→20:31)
--- NOTE | 2018-07-14 20:01 | P.PNPL ---
Subjective Interval history: 72 YOWF with br asthma, DM, Rt lung infilt and Pl eff Terminally extubated has chest tube Physical Exam Vital signs: Vital Signs 07/13/18 20:00 07/13/18 22:15 07/13/18 22:30 Temperature 98.9 F Pulse Rate 64 54 L 54 L Respiratory Rate 15 13 12 Blood Pressure 130/66 109/57 L Pulse Oximetry 95 96 96 07/13/18 22:45 07/13/18 23:00 07/13/18 23:15 Temperature Pulse Rate 55 L 54 L 60 Respiratory Rate 12 13 14 Blood Pressure 113/57 L 114/60 118/64 Pulse Oximetry 96 97 97 07/13/18 23:30 07/13/18 23:42 07/13/18 23:45 Temperature Pulse Rate 55 L 60 Respiratory Rate 12 12 12 Blood Pressure 116/61 115/57 L Pulse Oximetry 97 97 94 L 07/14/18 00:00 07/14/18 00:15 07/14/18 00:30 Temperature 98.2 F Pulse Rate 58 L 56 L 54 L Respiratory Rate 13 13 12 Blood Pressure 120/60 120/58 L 120/60 Pulse Oximetry 93 L 96 96 07/14/18 00:45 07/14/18 01:00 07/14/18 01:15 Temperature Pulse Rate 56 L 53 L 52 L Respiratory Rate 13 12 13 Blood Pressure 117/58 L 117/56 L 109/59 L Pulse Oximetry 97 97 97 07/14/18 01:30 07/14/18 01:45 07/14/18 02:00 Temperature Pulse Rate 52 L 53 L 54 L Respiratory Rate 12 12 13 Blood Pressure 117/58 L 110/57 L 113/60 Pulse Oximetry 98 98 98 07/14/18 02:15 07/14/18 02:30 07/14/18 02:45 Temperature Pulse Rate 52 L 51 L 56 L Respiratory Rate 13 12 14 Blood Pressure 113/56 L 114/59 L 116/56 L Pulse Oximetry 98 98 97 07/14/18 03:00 07/14/18 03:03 07/14/18 03:15 Temperature Pulse Rate 62 61 58 L Respiratory Rate 24 24 13 Blood Pressure 131/60 132/60 Pulse Oximetry 98 98 98 07/14/18 03:30 07/14/18 03:45 12/27/18 04:00 Temperature Pulse Rate 60 54 L 62 Respiratory Rate 17 13 14 Blood Pressure 132/67 120/60 122/60 Pulse Oximetry 99 98 100 07/14/18 04:10 07/14/18 04:15 07/14/18 07:13 Temperature 98.9 F Pulse Rate 53 L Respiratory Rate 13 12 13 Blood Pressure 108/56 L Pulse Oximetry 100 95 99 07/14/18 08:00 07/14/18 11:50 07/14/18 12:00 Temperature 98.3 F 98.7 F Pulse Rate 57 L 59 L Respiratory Rate 14 17 18 Blood Pressure 110/56 L 91/50 L Pulse Oximetry 97 98 98 07/14/18 15:39 07/14/18 16:00 Temperature Pulse Rate 60 64 Respiratory Rate 19 19 Blood Pressure 103/54 L Pulse Oximetry 95 94 L Intake & Output 07/14/18 07/14/18 07/15/18 06:59 18:59 06:59 Intake Total 180 / 180 386 / 386 Output Total 250 / 250 500 / 500 Balance -70 / -70 -114 / -114 Weight 83.5 kg Intake: IV 386 / 386 Intropin Inj 800 MG In NS Inj 86 / 86 230 ML @ 3 MCG/KG/MIN 4.66 mls/ hr IV.CONT TITRATE PRN Rx#: [id number] Flexbumin 25% Inj 100 ML @ 60 300 / 300 mls/hr IV.SIG WITH DIALYSIS PRN Rx#:[id number] Tube Feeding 120 / 120 Water Bolus Amount 60 / 60 Output: Urine 0 / 0 Hemodialysis Amount 500 / 500 Chest Tube Drainage 250 / 250 #1 Right Mid-Axillary Chest 250 / 250 Other: Date of Last Bowel Movement 07/13/18 07/14/18 # Incontinent Bowel Movements 1 GENERAL: Elderly female, obtunded SKIN: Warm and dry. HEAD: Normocephalic. EYES: No scleral icterus. No injection or drainage. NECK: Supple, trachea midline. No JVD or lymphadenopathy. CARDIOVASCULAR: Regular rate and rhythm without murmurs, gallops, or rubs. RESPIRATORY: Breath sounds equal bilaterally. No accessory muscle use. Rt chest tube GASTROINTESTINAL: Abdomen soft, non-tender, nondistended. MUSCULOSKELETAL: No cyanosis, or edema. BACK: Nontender without obvious deformity. No CVA tenderness. - Urinary Catheter Management Straight Cath placed during this visit: yes, but has since been removed by the nurse Reason for continuing: Not indwelling catheter Insertion date: 07/07/18 Insertion time: 18:00 Removal date: 07/07/18 Removal time: 18:20 Assessment and Plan - Plan IMPRESSION: 1. Right lung infiltrate. 2. Right pleural effusion. 3. Dyspnea. 4. Diabetes mellitus. 5. Hypertension. 6. Renal insufficiency and chronic kidney disease. 7. CLL 8. S/P TIPS 9. Severe leucocytosis 10. Worsening renal functions, 11. VDRF PLAN: Terminally extubated [facility] seeing pt
[2018-07-15] MEDS: HYDROmorphone PF Inj 2 MG/ML Vial IV.PUSH SCH ×3 (00:15→09:36)
[2018-07-15 01:12] VITALS: TEMP 97.6
--- NOTE | 2018-07-15 03:39 | XR ---
EXAM DATE: 07/15/2018 3:35 AM EST AGE/SEX: 72 years / Female INDICATIONS: Respiratory failure. CLINICAL DATA: This is the patient's subsequent encounter. Patient reports that signs and symptoms h ave been present for 1 month and indicates a pain score of Nonresponsive. MEDICAL/SURGICAL HISTORY: . DM. Acute respiratory failure. Sepsis. Leukemia. . Thyroidectomy. [place] [facility] [place]. . FINDINGS: There is mild patchy parenchymal consolidation of both lungs, not significantly changed. No large eff usion demonstrated. No pneumothorax. Heart size stable, within normal limits. There is a left internal jugular central venous catheter with tip in the right atrium. Patient has be en extubated since the prior study. Feeding tube also removed. CONCLUSION: 1. No significant change mild patchy parenchymal consolidation of both lungs. 2. Interim extubation and feeding tube removal. Electronically signed by: Higinio Malone MD Board Certified Radiologist 07/15/2018 3:38 AM EST
--- NOTE | 2018-07-15 09:03 | P.PNCC ---
Subjective Subjective Remarks/Hospital Course: This is a 72-year-old female. Admission 06/25/2008. Past medical history includes stage 0 CLL, asthma, diabetes, gout, hypertension and hypothyroidism. She initially presented to the hospital complaining of a several month history of progressive shortness of breath. This is associated orthopnea and difficulty ambulation. A dry nonproductive cough as well. No chest pain. On admission, patient was noted to have moderate ascites and a significant right pleural effusion. She received paracentesis on 06/25 5700 cc and on 06/28 5900 cc. She had a right-sided thoracentesis 1200 cc on 06/25. CT abdomen pelvis showed likely liver cirrhosis and moderate ascites. She also had a CT of the abdomen and pelvis which did not show any lymphadenopathy. She has not been febrile. She has had thoracentesis and they took out 1.2 L of fluid. 06/28 had an upper endoscopy. EGD revealed esophagitis, distal esophageal ulcer, portal hypertensive gastropathy. She started worsening renal failure and worsening leukocytosis. Due to the possibility of hepatorenal syndrome a TIPS was performed by IR 07/01. She has been on beta-ilana, diuretics and midodrine in the interim along with octreotide. Patient been pancultured which no growth today. Current levofloxacin and metronidazole. No obvious source of infection at the present time. The past couple nights patient is been in ICU. She is become more confused and will not keep her BiPAP on due to agitation. She is received 2 stenosis of lorazepam tonight. I was asked to see the patient due to worsening respiratory issues including tachypnea and altered mental status including unresponsive. PH is 7.35. PCO2 47. PO2 74. Base index -6. She is on a nonrebreather. She is intubated using 20 mg etomidate and 8.0 ET tube at 23 cm at lip. They were unable to pass an NG tube.. 07/07/18: Remains intubated sedated. Renal function is worsening creatinine close to 6 now. Remains anuric. Large right pleural effusion drained yesterday 1.4 L since pigtail chest tube placement. Currently sedated with fentanyl will wake up follows some commands 07/08/18: Patient remains intubated mildly sedated with fentanyl infusion. Remains anuric with worsening renal function. HD catheter was placed yesterday. Will initiate hemodialysis today per nephrology. Right chest tube with 700 mL output in the last 24 hours 07/09/18: Remains critical wearing ventilator support. Remains anuric hemodialysis started yesterday 2 L removed. Right pleural effusion improved with chest tube, left moderate large pleural effusion. Plan for thoracentesis and then start CPAP trials. 07/10: Patient remains intubated lightly sedated with fentanyl. Tolerate CPAP wakes up weakly following commands. Chest x-ray shows improved infiltrates. Right chest tube with 700 mL output in 24 hours. Left thoracentesis with 500 mL removed 07/11: Remains lethargic encephalopathy intermittently following commands. Oxygen requirement increased to 50% due to hypoxia. Tired out on CPAP at night. Plan for hemodialysis today attempt CPAP after hemodialysis today. WBC count trending up creatinine remains more than 5. Remains anuric 07/12: Remains sedated, orally intubated on mechanical ventilation. Tolerating tube feeds. Daily CPAP trials ongoing 07/13: Remains sedated, orally intubated on mechanical ventilation. Gets agitated on lightening sedation. Apneic episodes with CPAP trials. Attempted SIMV today. Borderline blood pressure so ordered IV albumin. Awaiting hemodialysis 07/14: Currently on CPAP trial. Status post hemodialysis. Patient states she wants to "go home". Remains on dopamine drip at 2 mcg/kg/min. Subjective 07/15: Patient seen and examined. Patient not transferred to [facility] last night. Currently hypotensive and hypoxic. Extubated yesterday without complication. Objective Vital Signs / I&O: Vital Signs 07/14/18 11:50 07/14/18 12:00 07/14/18 15:39 Temperature 98.7 F Pulse Rate 59 L 60 Respiratory Rate 17 18 19 Blood Pressure 91/50 L Pulse Oximetry 98 98 95 07/14/18 16:00 07/14/18 19:15 07/14/18 20:00 Temperature 97.8 F 97.8 F Pulse Rate 64 52 L 52 L Respiratory Rate 19 7 L 7 L Blood Pressure 103/54 L 62/38 L 62/38 L Pulse Oximetry 94 L 86 L 86 L 07/14/18 21:01 07/15/18 00:00 07/15/18 00:15 Temperature 97.6 F Pulse Rate 47 L Respiratory Rate 7 L 8 L 8 L Blood Pressure 61/36 L Pulse Oximetry 86 L 07/15/18 00:51 07/15/18 04:00 07/15/18 04:08 Temperature 97.6 F Pulse Rate 51 L Respiratory Rate 9 L 7 L 8 L Blood Pressure 64/36 L Pulse Oximetry 95 07/15/18 04:38 Temperature Pulse Rate Respiratory Rate 8 L Blood Pressure Pulse Oximetry Intake & Output 07/14/18 07/15/18 07/15/18 18:59 06:59 18:59 Intake Total 386 / 386 0 / 0 Output Total 500 / 500 1450 / 1450 Balance -114 / -114 -1450 / -1450 Weight 82 kg Intake: IV 386 / 386 Intropin Inj 800 MG In NS Inj 86 / 86 230 ML @ 3 MCG/KG/MIN 4.66 mls/ hr IV.CONT TITRATE PRN Rx#: [id number] Flexbumin 25% Inj 100 ML @ 60 300 / 300 mls/hr IV.SIG WITH DIALYSIS PRN Rx#:[id number] Oral 0 / 0 Tube Feeding 0 / 0 Tube Irrigant 0 / 0 Water Bolus Amount 0 / 0 Output: Urine 0 / 0 0 / 0 Pleural Fluid 500 / 500 Hemodialysis Amount 500 / 500 500 / 500 Chest Tube Drainage 450 / 450 #1 Right Mid-Axillary Chest 450 / 450 Other: # Voids 0 # Incontinent Voids 0 Date of Last Bowel Movement 07/14/18 07/14/18 # Bowel Movements 0 # Incontinent Bowel Movements 1 0 Result Diagrams: 07/14/18 12:16 07/13/18 09:02 Other Results: Microbiology 07/06/18 15:15 Fluid - Pleural fluid Acid Fast Bacilli Smear - Final No acid fast bacilli seen 07/06/18 15:15 Fluid - Pleural fluid Mycobacterial Culture - Preliminary No growth in 1 week 07/06/18 15:15 Fluid - Pleural fluid Fungal Smear - Final No fungal elements seen 07/06/18 15:15 Fluid - Pleural fluid Fungal Culture - Preliminary No growth in 1 week 07/09/18 11:20 Fluid - Pleural fluid Gram Stain - Final 07/09/18 11:20 Fluid - Pleural fluid Body Fluid Culture - Final No growth in 72 hours (aerobically and anaerobically ) 07/06/18 05:15 Blood - Peripheral Aerobic Blood Culture - Final No growth in 5 days 07/06/18 05:15 Blood - Peripheral Anaerobic Blood Culture - Final No growth in 5 days 07/06/18 05:20 Blood - Peripheral Aerobic Blood Culture - Final No growth in 5 days 07/06/18 05:20 Blood - Peripheral Anaerobic Blood Culture - Final No growth in 5 days 06/25/18 19:15 Fluid - Pleural fluid Fungal Smear - Final No fungal elements seen 06/25/18 19:15 Fluid - Pleural fluid Fungal Culture - Preliminary No growth in 2 weeks 06/25/18 17:15 Abscess - Chest Acid Fast Bacilli Smear - Final No acid fast bacilli seen 06/25/18 17:15 Abscess - Chest Mycobacterial Culture - Preliminary No growth in 2 weeks 06/25/18 17:45 Fluid - Peritoneal fluid Fungal Smear - Final No fungal elements seen 06/25/18 17:45 Fluid - Peritoneal fluid Fungal Culture - Preliminary No growth in 2 weeks 06/25/18 17:45 Fluid - Peritoneal fluid Acid Fast Bacilli Smear - Final No acid fast bacilli seen 06/25/18 17:45 Fluid - Peritoneal fluid Mycobacterial Culture - Preliminary No growth in 2 weeks 07/07/18 18:30 Catheterized Urine Urine Culture - Final No growth in 48 hours 07/06/18 15:15 Fluid - Pleural fluid Gram Stain - Final 07/06/18 15:15 Fluid - Pleural fluid Body Fluid Culture - Final No growth in 72 hours (aerobically and anaerobically ) 07/06/18 11:50 Sputum - Endotracheal Gram Stain - Final 07/06/18 11:50 Sputum - Endotracheal Sputum Culture - Final Moderate growth normal respiratory yaneth 07/06/18 08:10 Nasal Wash Influenza Types A,B Antigen - Final Negative for FLU A and B antigen Infection due to influenza A or B cannot be ruled out since the antigen present in the sample may be below the detection limit of the test. 06/25/18 17:15 Fluid - Pleural fluid Gram Stain - Final 06/25/18 17:15 Fluid - Pleural fluid Body Fluid Culture - Final No growth in 72 hours (aerobically and anaerobically ) 06/25/18 17:45 Fluid - Peritoneal fluid Gram Stain - Final 06/25/18 17:45 Fluid - Peritoneal fluid Body Fluid Culture - Final No growth in 72 hours (aerobically and anaerobically ) Imaging: Abdomen Ultrasound 06/25/18 00:00 CONCLUSION: 1. Moderate ascites 2. Hepatic cirrhosis Abdomen/Pelvis CT 06/25/18 00:00 CONCLUSION: 1. Suspected cirrhotic liver. 2. Mild to moderate amount of ascites. 3. Bilateral pleural effusions being mild on the right and minimal on the left. 4. Increased density at the inferior right middle lobe and right lower lobe likely related to consolidation or atelectasis. 5. Anasarca 6. Tiny nonobstructing left renal stone. Chest Ultrasound 06/25/18 00:00 CONCLUSION: 1. Large right pleural effusion without appreciable loculation. Chest X-Ray 06/25/18 00:00 CONCLUSION: No pneumothorax following right thoracentesis. Paracentesis Ultrasound 06/25/18 00:00 CONCLUSION: 1. Uncomplicated paracentesis. A suture was placed to gain hemostasis secondary to a small cutaneous venous bleed. This suture can be removed in 2-3 days. Thoracentesis Ultrasound 06/25/18 00:00 CONCLUSION: 1. Uncomplicated right thoracentesis. Chest X-Ray 06/25/18 06:47 CONCLUSION: Right mid lung and basilar density characteristic of a small to moderate pleural effusion with underlying airspace disease. Head CT 06/25/18 06:47 CONCLUSION: 1. Stable evaluation of the head. 2. No evidence of acute infarct, hemorrhage, mass or edema. . Chest X-Ray 06/28/18 10:46 CONCLUSION: Hypoaerated lungs. No evidence of significant airspace disease or congestion. Paracentesis Ultrasound 06/29/18 00:00 CONCLUSION: 1. Uncomplicated paracentesis. TIPS 07/01/18 00:00 CONCLUSION: 1. Uncomplicated fluoroscopic guided placement of TIPS shunts from the right hepatic vein to the right portal vein, as above. PLAN: Baseline ultrasound examination in 2 weeks with surveillance ultrasound at 3 months, 6 months and one year. Chest X-Ray 07/02/18 00:00 CONCLUSION: Radiographic findings concerning for possible congestive heart failure with severe pulmonary edema versus ARDS. Chest X-Ray 07/06/18 00:00 CONCLUSION: 1. Endotracheal tube in the right mainstem bronchus. This should be retracted at least 3 cm. 2. Patchy bilateral airspace disease, improved. Chest X-Ray 07/06/18 00:00 CONCLUSION: Endotracheal tube with tip at the orifice of the right mainstem bronchus. This should be retracted at least 2 cm. Chest X-Ray 07/06/18 00:00 CONCLUSION: Consolidative changes left base. ET tube above the james Chest X-Ray 07/06/18 00:52 CONCLUSION: 1. Diffuse bilateral airspace disease more prominent on current study. 2. Probable small pleural effusions. Abdomen X-Ray 07/06/18 11:06 CONCLUSION: Dobbhoff tube tip is noted within the expected region of the distal stomach. Chest X-Ray 07/07/18 00:00 CONCLUSION: Slight improvement in aeration. Chest X-Ray 07/07/18 06:00 CONCLUSION: Persistent left lower lobe consolidation. New nonconsolidative infiltrates in the right perihilar region. Chest X-Ray 07/09/18 00:00 CONCLUSION: Bibasilar areas of consolidation or atelectasis. Overall there is better aeration to lungs on the current exam. Chest X-Ray 07/09/18 06:00 CONCLUSION: Pulmonary vascular congestion. Bilateral pleural effusions left greater than right. Tubes and catheters are stable. Chest X-Ray 07/10/18 06:00 CONCLUSION: Tube and catheters in good position. Bilateral airspace disease most prominently in the right lung base Chest X-Ray 07/11/18 06:00 CONCLUSION: 1. Stable tubes and lines, as above. 2. Stable right-sided chest tube without pneumothorax. 3. Slightly improved patchy airspace disease in the right lower lung zone. 4. Persistent left lower lung zone airspace disease. Chest X-Ray 07/12/18 06:00 CONCLUSION: 1. Right-sided chest tube has been retracted but remains in the inferior hemithorax. No pneumothorax. 2. Remaining tubes and lines are stable. 3. Persistent bilateral lower lung zone airspace disease. Chest X-Ray 07/15/18 06:00 CONCLUSION: 1. No significant change mild patchy parenchymal consolidation of both lungs. 2. Interim extubation and feeding tube removal. Objective Remarks: Constitutional 72-year-old female currently in room air no acute distress - Routine HEENT Exam Head: Present: normocephalic, atraumatic Eye: Present: EOMI, PERRL ENT: Present: Orotracheally intubated. Left IJ Hemovac catheter is clean dry and intact. - Routine Neck Exam Present: supple, full ROM. Absent: JVD Bandage from tips in right neck - Routine Respiratory Exam Present: His breath sounds throughout. Right pigtail catheter in place. - Routine Cardiovascular Exam Present: Bradycardic, RR, S1, S2. Absent: murmur - Routine Abdominal Exam Present: soft, normoactive bowel sounds - Routine Skin Exam Present: intact, dry. Absent: cyanosis, erythema - Routine Neurological Exam Not following commands. Assessment and Plan - Problem List (1) Acute hypoxemic respiratory failure Code(s): J96.01 - Acute respiratory failure with hypoxia Status: Acute (2) Sepsis Code(s): A41.9 - Sepsis, unspecified organism Status: Acute (3) Leukemia Code(s): C95.90 - Leukemia, unspecified not having achieved remission Status: Acute - Assessment and Plan Plan: Neuro/Psych: Acute metabolic encephalopathy CO2 narcosis Currently off all sedation Comfort measures only Essential hypertension Bradycardia Holding nadolol 20 mg daily hold due to bradycardia, continue midodrine 10 mg 3 times daily Hemodialysis started for fluid removal no response to IV furosemide. Discontinue. Echocardiogram -EF 55-60%. Normal LV systolic function. Trace mitral valve regurgitation. Mitral annular calcification is present. Cannot rule out a small mobile echodensity on the left ventricular side of the anterior leaflet towards the left ventricular outflow tract in parasternal views. Clinical correlation recommended there is trace tricuspid valve regurgitation. The estimated pulmonary arterial pressure is 38 mmHg. Blood cultures have been negative Resp: Acute hypoxemic respiratory failure Right pleural effusion status post thoracentesis 06/25 -1200 cc, right pigtail chest tube placement 07/06/2018 Oxygen for comfort. Status post left thoracentesis 07/09/2018 with 500 mL removed GI: Portal hypertensive gastropathy LA class B esophagitis Distal esophageal ulcer Ascites -paracentesis 5700 cc 06/25. 5900 cc 06/28 Status post TIPS 07/01 for possible hepatorenal syndrome CT abdomen/pelvis 06/25 revealed cirrhotic type liver. Left-sided hydronephrosis. Moderate ascites EGD 06/28 revealed LA class B esophagitis. 7 mm distal esophageal ulcer. Portal hypertensive gastropathy.H. pylori negative. Previously followed by GI. Negative CA-19-9, alpha-fetoprotein, beta-hCG. Negative hepatitis panel Endo: Diabetes mellitus Hypothyroidism Gout Holding glipizide 5 mg daily/home medication Patient is on levothyroxine 300 mcg daily. Patient is on allopurinol at home. 100 mg daily continue Renal: Acute kidney failure Monitor urine output. Accurate I's and O's. Currently remains anuric. Hemodialysis catheter placed, started hemodialysis 07/08/[address] abdomen/pelvis on admission Nephrology Dr. Busby Heme: CLL [id number] score 0 Leukocytosis Normocytic anemia Followed by Dr. Flores/oncology. Follow-up on coags, CBC Currently no indication for transfusion of blood products at this time. ID: Followed by infectious disease. Currently levofloxacin and metronidazole has been discontinued Peritoneal and pleural fluid 06/25 no growth today. Pleural fluid no growth to date F/U blood cultures x2, sputum, UA and influenza a and B negative Access-utilize peripheral IV. Central line if indicated Prophylaxis Not indicated Level 2 follow-up
[2018-07-15 10:38] VITALS: BP 49/31; PULSE 38; RESP 10; O2SAT 91
== END 2018-07-15 11:00 | disposition hospice, home (50) | DRG 853 ==
LOC: NEPC 05:10 → NEDA 10:18 → N07 12:19 → HIMC 07-02 12:20
PROVIDERS: ADMIT Internal Medicine Critical Care Medicine; ATTEND Internal Medicine Critical Care Medicine
PROC: PANENDO (2018-06-28 10:06)
DX: Y92.003 Bedroom of unspecified non-institutional (private) residence as the place of occurrence of the external cause; K29.70 Gastritis, unspecified, without bleeding; J80 Acute respiratory distress syndrome; R19.7 Diarrhea, unspecified; Z79.890 Hormone replacement therapy; J96.01 Acute respiratory failure with hypoxia; I86.4 Gastric varices; G93.41 Metabolic encephalopathy; K31.89 Other diseases of stomach and duodenum; A41.9 Sepsis, unspecified organism; C91.10 Chronic lymphocytic leukemia of B-cell type not having achieved remission; I85.00 Esophageal varices without bleeding; M10.9 Gout, unspecified; Z99.2 Dependence on renal dialysis; Z80.3 Family history of malignant neoplasm of breast; Z66 Do not resuscitate; R00.0 Tachycardia, unspecified; R18.8 Other ascites; N17.0 Acute kidney failure with tubular necrosis; N13.30 Unspecified hydronephrosis; K22.10 Ulcer of esophagus without bleeding; N17.9 Acute kidney failure, unspecified; E89.0 Postprocedural hypothyroidism; R29.6 Repeated falls; G47.00 Insomnia, unspecified; E87.4 Mixed disorder of acid-base balance; W06.XXXA Fall from bed, initial encounter; Z82.3 Family history of stroke; K76.6 Portal hypertension; J18.1 Lobar pneumonia, unspecified organism; K74.60 Unspecified cirrhosis of liver; Z68.39 Body mass index [BMI] 39.0-39.9, adult; F43.23 Adjustment disorder with mixed anxiety and depressed mood; N18.9 Chronic kidney disease, unspecified; Z99.11 Dependence on respirator [ventilator] status; Z53.20 Procedure and treatment not carried out because of patient's decision for unspecified reasons; E11.22 Type 2 diabetes mellitus with diabetic chronic kidney disease; E11.65 Type 2 diabetes mellitus with hyperglycemia; K76.7 Hepatorenal syndrome; K44.9 Diaphragmatic hernia without obstruction or gangrene; M19.90 Unspecified osteoarthritis, unspecified site; Z51.5 Encounter for palliative care; I13.0 Hypertensive heart and chronic kidney disease with heart failure and stage 1 through stage 4 chronic kidney disease, or unspecified chronic kidney disease; E66.9 Obesity, unspecified; J45.909 Unspecified asthma, uncomplicated; I50.9 Heart failure, unspecified; Z79.84 Long term (current) use of oral hypoglycemic drugs
CPT/HCPCS: 31500; 32020; 32551; 32555; 36556; 36600; 37182; 49083; 70450; 71010; 71045; 74000; 74018; 74176; 74360; 75889; 76499; 76604; 76705; 76937; 80048; 80053; 80061; 80074; 80076; 81001; 82042; 82105; 82140; 82150; 82390; 82550; 82570; 82728; 82805; 82945; 82948; 82962; 83520; 83540; 83550; 83605; 83615; 83690; 83735; 83986; 84100; 84155; 84157; 84300; 84443; 84484; 84550; 84703; 85025; 85027; 85384; 85610; 85651; 85652; 85730; 86038; 86039; 86225; 86235; 86255; 86256; 86301; 86431; 86850; 86900; 86901; 87015; 87040; 87070; 87086; 87102; 87116; 87205; 87206; 87275; 87276; 87493; 87641; 87804; 88112; 88305; 88312; 89051; 90765; 90768; 90774; 90775; 90784; 90935; 93005; 93306; 94003; 94150; 94640; 94657; 94664; 94665; 96365; 96368; 96374; 96375; 97110; 97163; 97164; 97530; 99285; A4646; C1725; C1729; C1751; C1769; C1874; C1887; C1894; C8952; C9113; J0330; J0456; J0690; J0696; J0886; J1170; J1265; J1580; J1644; J1720; J1815; J1940; J1956; J1980; J2060; J2250; J2354; J2370; J2405; J2704; J2930; J3010; J7030; J7050; P9047; Q4055; Q4081; Q9949; Q9963; Q9967